=== PATIENT | female | born 1955 | race American Indian/Alaskan Native ===

== ENCOUNTER → 2016-05-03 | Outpatient (CLI) | payer MEDICARE, BC ==
[2016-05-03 15:22] LABS: INR 0.9 (<1.1); Partial Thromboplastin Time 22.6 sec (22.0-30.0); Prothrombin Time 9.7 sec (9.0-12.0)
== END | disposition home or self-care (01) ==
LOC: LABWHC1 14:33
PROVIDERS: ATTEND Physical Medicine & Rehabilitation
DX: M54.5 Low back pain (principal); E66.9 Obesity, unspecified; M43.16 Spondylolisthesis, lumbar region; M70.60 Trochanteric bursitis, unspecified hip; M47.817 Spondylosis without myelopathy or radiculopathy, lumbosacral region; M51.17 Intervertebral disc disorders with radiculopathy, lumbosacral region; M41.86 Other forms of scoliosis, lumbar region; M17.11 Unilateral primary osteoarthritis, right knee; M48.10 Ankylosing hyperostosis [Forestier], site unspecified; M54.16 Radiculopathy, lumbar region; M54.30 Sciatica, unspecified side
CPT/HCPCS: 36415; 85610; 85730

== ENCOUNTER 2016-06-04 13:40 | Emergency (ER) | payer MEDICARE, BC ==
[2016-06-04 13:58] VITALS: RESP 18
[2016-06-04] MEDS ORDERED: HYDROmorphone 1 MG/ML 1 ML SYRINGE IM STA (14:24)
[2016-06-04] MEDS ORDERED: cloNIDine HCL 0.2 MG TAB PO STA (14:27)
--- NOTE | 2016-06-04 14:32 | ED ---
General Adult HPI - General Chief complaint: Headache Stated complaint: headache Time Seen by Provider: 06/04/16 14:11 Source: patient, RN notes reviewed, old records reviewed Mode of arrival: ambulatory Limitations: no limitations - History of Present Illness Initial comments: If complaint and history of present illness a 61-year-old female here with a complaint of sinus pressure frontal and maxillary sinus. She been on amoxicillin for 5 days without relief she's also using Flonase. No fever at this time. No nausea no vomiting. - Related Data Home Medications Medication Instructions Recorded Confirmed ARIPiprazole [Abilify] 5 mg PO DAILY 08/09/13 11/04/15 Cyanocobalamin [Vitamin B-12] 2,000 mcg PO DAILY@1200 08/09/13 11/04/15 Furosemide [Lasix] 20 mg PO DAILY PRN 08/09/13 11/04/15 Levothyroxine Sodium [Synthroid] 88 mcg PO DAILY 08/09/13 11/04/15 Multivitamins, Thera [Multivitamin] 1 tab PO DAILY 08/09/13 11/04/15 Warfarin [Coumadin] 7.5 mg PO HS 08/09/13 11/04/15 L.acidoph,Paracasei, B.lactis 1 cap PO DAILY 07/12/15 11/04/15 [Probiotic] Nitroglycerin Sl Tabs [Nitrostat] 0.4 mg SUBLINGUAL Q5M PRN 07/12/15 11/04/15 traMADol HCl [Ultram] 50 mg PO Q6H PRN 07/12/15 11/04/15 Cyclobenzaprine [Flexeril] 10 mg PO HS 11/04/15 11/04/15 Gabapentin [Gabapentin] 600 mg PO BID 11/04/15 11/04/15 Morphine Sulfate [Ms Contin] 60 mg PO ONCE 11/04/15 11/04/15 Vortioxetine Hydrobromide 10 mg PO DAILY 11/04/15 11/04/15 [Trintellix] Previous Rx's Medication Instructions Recorded Clindamycin [Cleocin] 450 mg PO Q8HR #90 capsule 11/04/15 traMADol HCl [Ultram] 50 mg PO Q4H PRN #20 tab 11/04/15 Amoxicillin/Potassium Clav 1 each PO Q12HR #20 tab 03/04/17 [Augmentin 875-125 Tablet] Allergies Allergy/AdvReac Type Severity Reaction Status Date / Time cefprozil [From Cefzil] Allergy Unknown Verified 06/04/16 13:54 codeine Allergy Unknown Verified 06/04/16 13:54 hydrocodone bitartrate Allergy Confusion Verified 06/04/16 13:54 [From Vicodin] Sulfa (Sulfonamide Allergy Rash/Hives Verified 06/04/16 13:54 Antibiotics) Review of Systems ROS Statement: Those systems with pertinent positive or pertinent negative responses have been documented in the HPI. Review of systems. Patient has no change in visual acuity she has frontal sinus and maxillary sinus pressure and pain. Slight runny nose. She is using Flonase. She feels it radiating into the back of her throat. No sore throat. No stiff neck. No chest pain shortness breath GI/ problems. All systems were reviewed Past medical problems include angina, TIA, DVT, fibromyalgia, GERD, previous GI bleed. History of memory impairment, previous HI, OA, pneumonia, PE, sleep apnea with CPAP. Hypothyroidism. Surgeries include bariatric surgery hernia repair, hysterectomy, rotator cuff repair. And tubal ligation. Family history one sister ovarian cancer. Another sister had multiple ovarian cysts. Other sister had rheumatoid arthritis. She's nonsmoker nondrinker. ROS Other: All systems not noted in ROS Statement are negative. Past Medical History Past Medical History: Chest Pain / Angina, CVA/TIA, Deep Vein Thrombosis (DVT), Fibromyalgia, GERD/Reflux, GI Bleed, Memory Impairment, Myocardial Infarction ( [place]), Osteoarthritis (OA), Pneumonia, Pulmonary Embolus (PE), Skin Disorder, Sleep Apnea/CPAP/BIPAP, Thyroid Disorder Additional Past Medical History / Comment(s): Stroke, TIA, and Hypothyroid. CHRONIC YEAST IN skin folds. Leakage of urine. Poor nutrition, pt states was told she had an HI based on an old EKG ( never had an heartcath), frequent problems w/vomiting, states doens't have hypertension. Has been getting iron infusions for anemia in Procedures this week. neuorpathy, back pain, ANGINA, BLEEDING ULCERS, PLEURISY, OSTEROPEROSIS, MYFACIAL PAIN SYNDROME, SLEEP APNEA ( DOES NOT USE CPAP). Last Myocardial Infarction Date:: 2002 History of Any Multi-Drug Resistant Organisms: None Reported Past Surgical History: Bariatric Surgery, Hernia Repair, Hysterectomy, Orthopedic Surgery, Tubal Ligation Additional Past Surgical History / Comment(s): right rotator cuff repair AND REVISION, VENTRAL HERNIA REPAIR, HIATAL HERNIA REPAIR, LT KNEE ARTHROSCOPY, RECTOCELE, PERINEALPLASTY, GASTRIC BYPASS, Past Anesthesia/Blood Transfusion Reactions: Motion Sickness Past Psychological History: Anxiety, Depression Smoking Status: Never smoker Past Alcohol Use History: None Reported Past Drug Use History: None Reported - Past Family History Sister(s) Family Medical History: Cancer General Exam - General Exam Comments Initial Comments: General: The patient is awake and alert, complaining of moderate to severe discomfort to her frontal and maxillary sinuses. The patient's been on amoxicillin for almost a week without relief. Vital signs show temp is 97.9 pulse 84 respiratory rate 18 pulse ox 96% room air blood pressure 159/102. The patient is in pain. She will receive a pain shot and Catapres by mouth. She will also be referred back to her family physician in the next 1-2 weeks. Eye: Pupils are equal, round and reactive to light, extra-ocular movements are intact ; there is normal conjunctiva bilaterally. No signs of icterus. Ears, nose, mouth and throat: There are moist mucous membranes and no oral lesions. Patient has discomfort to the frontal and maxillary sinuses. No fever, no chills Neck: The neck is supple, there is no tenderness . Cardiovascular: There is a regular rate and rhythm. No murmur, rub or gallop is appreciated. Respiratory: Lungs are clear to auscultation, respirations are non-labored, breath sounds are equal. No wheezes, stridor, rales, or rhonchi. Gastrointestinal: No complaint nausea vomiting or diarrhea. Back: Chronic back pain from fibromyalgia. Musculoskeletal: No complaint of numbness or tingling. Neurological: No complaint of any balance problems. No focal or lateralizing findings. Skin: Skin is warm and dry and no rashes or lesions are noted. Limitations: no limitations Course Vital Signs 06/04/16 06/04/16 13:54 14:04 Temperature 97.9 F Pulse Rate 93 84 Respiratory 18 Rate Blood Pressure 170/97 159/102 O2 Sat by Pulse 95 96 Oximetry Medical Decision Making - Medical Decision Making Medical decision-making. The patient's blood pressure is elevated she'll receive Catapres in emergency room and referred back to her family physician this week. Her amoxicillin be switched to Augmentin to be taken as directed. She is to continue Motrin and tramadol. She does not want any other narcotics. While in emergency room the patient received a shot of Dilaudid and her friend is driving her home. She was advised to continue using her nasal spray and to start Augmentin. Disposition Clinical Impression: Sinusitis chronic, frontal, Maxillary sinusitis, acute Disposition: HOME SELF-CARE Condition: Stable Instructions: Sinusitis (ED) Additional Instructions: Take medications as directed, use Augmentin instead of amoxicillin. Continue with the Flonase nasal spray. By [id number] Claritin to be taken as directed. Continue with here child on Motrin. Follow-up with family physician Prescriptions: Amoxicillin/Potassium Clav [Augmentin 875-125 Tablet] 1 each PO Q12HR #20 tab Time of Disposition: 14:32
[2016-06-04 14:43] VITALS: BP 143/97; PULSE 85; TEMP 97.4
== END 2016-06-04 15:01 | disposition home or self-care (01) ==
LOC: EC 13:40
DX: J01.10 Acute frontal sinusitis, unspecified (principal); J01.00 Acute maxillary sinusitis, unspecified; M79.7 Fibromyalgia; R03.0 Elevated blood-pressure reading, without diagnosis of hypertension; R41.3 Other amnesia; M19.90 Unspecified osteoarthritis, unspecified site; E03.9 Hypothyroidism, unspecified; M81.0 Age-related osteoporosis without current pathological fracture; F41.9 Anxiety disorder, unspecified; F32.9 Major depressive disorder, single episode, unspecified; I25.2 Old myocardial infarction; Z86.73 Personal history of transient ischemic attack (TIA), and cerebral infarction without residual deficits; Z79.899 Other long term (current) drug therapy; Z79.01 Long term (current) use of anticoagulants; Z79.891 Long term (current) use of opiate analgesic; Z88.1 Allergy status to other antibiotic agents; Z88.5 Allergy status to narcotic agent; Z88.2 Allergy status to sulfonamides
CPT/HCPCS: 99283 ×2; 96372 ×2; J1170

== ENCOUNTER 2016-10-05 16:40 | Emergency (ER) | payer MEDICARE, BC ==
--- NOTE | 2016-10-05 18:23 | ED ---
Back Pain HPI - General Chief Complaint: Back Pain/Injury Stated Complaint: Back Pain Time Seen by Provider: 10/05/16 18:10 Source: patient, RN notes reviewed Limitations: no limitations - History of Present Illness Initial Comments: 61-year-old female presents to the emergency Department chief complaint of back pain. Patient states that she fell on Monday. and hit her back on a cart. Patient states since she's has always had difficulty with bladder function when she stands up sometimes she will lose back. Patient states she's having harder strain to have a bowel movement. Patient states she did not feels if she has as much force. Patient states she's had a bowel accident as well as urinates every time she stands up. Patient states she suffers from chronic pain she chronically has herniated disks however this is different than her normal pain. Patient states she has numbness and tingling in her right foot which is normal for her. Patient states is new pain radiates down left leg which she has never had before. Patient states she called her pain management doctor and she was referred here.Patient denies any recent fever, chills, shortness of breath, chest pain, abdominal pain, nausea vomiting, numbness or tingling, dysuria or hematuria, constipation or diarrhea, headaches or visual changes, or any other current symptoms. - Related Data Home Medications Medication Instructions Recorded Confirmed ARIPiprazole [Abilify] 5 mg PO HS 08/09/13 10/05/16 Furosemide [Lasix] 20 mg PO DAILY PRN 08/09/13 10/05/16 Levothyroxine Sodium [Synthroid] 88 mcg PO DAILY 08/09/13 10/05/16 Multivitamins, Thera [Multivitamin 1 tab PO DAILY 08/09/13 10/05/16 (formulary)] Warfarin [Coumadin] 7.5 mg PO Q48H 08/09/13 10/05/16 L.acidoph,Paracasei, B.lactis 1 cap PO DAILY 07/12/15 10/05/16 [Probiotic] Cyclobenzaprine [Flexeril] 10 mg PO HS 11/04/15 10/05/16 Gabapentin [Gabapentin] 600 mg PO TID 11/04/15 10/05/16 Vortioxetine Hydrobromide 10 mg PO DAILY 11/04/15 10/05/16 [Trintellix] Levocetirizine Dihydrochloride 5 mg PO DAILY 10/05/16 10/05/16 [Xyzal] rOPINIRole HCL [Requip] 1 mg PO HS 10/05/16 10/05/16 traMADol HCl [Ultram] 100 mg PO Q4H PRN 10/05/16 10/05/16 Previous Rx's Medication Instructions Recorded predniSONE 50 mg PO DAILY #5 tab 10/05/16 Allergies Allergy/AdvReac Type Severity Reaction Status Date / Time cefprozil [From Cefzil] Allergy Unknown Verified 10/05/16 17:59 codeine Allergy Unknown Verified 10/05/16 17:59 hydrocodone bitartrate Allergy Confusion Verified 10/05/16 17:59 [From Vicodin] Sulfa (Sulfonamide Allergy Rash/Hives Verified 10/05/16 17:59 Antibiotics) Review of Systems ROS Statement: Those systems with pertinent positive or pertinent negative responses have been documented in the HPI. ROS Other: All systems not noted in ROS Statement are negative. Past Medical History Past Medical History: Chest Pain / Angina, CVA/TIA, Deep Vein Thrombosis (DVT), Fibromyalgia, GERD/Reflux, GI Bleed, Memory Impairment, Myocardial Infarction ( [place]), Osteoarthritis (OA), Pneumonia, Pulmonary Embolus (PE), Skin Disorder, Sleep Apnea/CPAP/BIPAP, Thyroid Disorder Additional Past Medical History / Comment(s): Stroke, TIA, and Hypothyroid. CHRONIC YEAST IN skin folds. Leakage of urine. Poor nutrition, pt states was told she had an [place] based on an old EKG ( never had an heartcath), frequent problems w/vomiting, states doens't have hypertension. Has been getting iron infusions for anemia in Procedures this week. neuorpathy, back pain, ANGINA, BLEEDING ULCERS, PLEURISY, OSTEROPEROSIS, MYFACIAL PAIN SYNDROME, SLEEP APNEA ( DOES NOT USE CPAP). Last Myocardial Infarction Date:: 2002 History of Any Multi-Drug Resistant Organisms: None Reported Past Surgical History: Bariatric Surgery, Hernia Repair, Hysterectomy, Orthopedic Surgery, Tubal Ligation Additional Past Surgical History / Comment(s): right rotator cuff repair AND REVISION, VENTRAL HERNIA REPAIR, HIATAL HERNIA REPAIR, LT KNEE ARTHROSCOPY, RECTOCELE, PERINEALPLASTY, GASTRIC BYPASS, Past Anesthesia/Blood Transfusion Reactions: Motion Sickness Past Psychological History: Anxiety, Depression Smoking Status: Never smoker Past Alcohol Use History: None Reported Past Drug Use History: None Reported - Past Family History Sister(s) Family Medical History: Cancer General Exam Limitations: no limitations General appearance: alert, in no apparent distress Neck exam: Present: normal inspection. Absent: tenderness, meningismus, lymphadenopathy Respiratory exam: Present: normal lung sounds bilaterally Cardiovascular Exam: Present: regular rate, normal rhythm, normal heart sounds. Absent: systolic murmur, diastolic murmur, rubs, gallop, clicks GI/Abdominal exam: Present: soft, normal bowel sounds. Absent: distended, tenderness, guarding, rebound, rigid Rectal exam: Present: normal inspection, decreased rectal tone Back exam: Present: normal inspection. Absent: full ROM (Limited due to pain) Neurological exam: Present: alert, oriented X3 Psychiatric exam: Present: normal affect, normal mood Skin exam: Present: warm, dry, intact, normal color. Absent: rash Course Vital Signs 10/05/16 16:42 Temperature 97.5 F L Pulse Rate 90 Respiratory 20 Rate Blood Pressure 109/65 O2 Sat by Pulse 98 Oximetry Medical Decision Making - Medical Decision Making 61-year-old female presents for back pain after a fall on Monday. At this time CAT scan is reviewed that does show the L4-L5 which is chronic for the patient. There is no acute fracture. Patient does have decreased rectal tone on exam however this may be chronic for the patient. She normally doesn't have bladder function issues. She states she is more difficult time pushing to actually go to the bathroom since the injury which is most likely related to the pain. This time CAT scan is not showing any acute findings. At this time we did discuss follow-up with her neurologist typical we'll put her on steroids for home. The patient is in agreement with the plan. At this time she'll be discharged. - Radiology Data Radiology results: report reviewed, image reviewed Disposition Clinical Impression: Lumbar strain Disposition: HOME SELF-CARE Condition: Stable Instructions: Acute Low Back Pain (ED) Additional Instructions: Please use medication as discussed. Please follow up with family doctor if symptoms have not improved over the next two days. Please return to the emergency room if your symptoms increase or worsen or for any other concerns. Prescriptions: predniSONE 50 mg PO DAILY #5 tab Referrals: Jimy Trammell MD [Primary Care Provider] - 1-2 days Time of Disposition: 19:07
--- NOTE | 2016-10-05 18:56 | CT ---
EXAMINATION TYPE: CT lumbar spine wo con DATE OF EXAM: 10/05/2016 6:44 PM COMPARISON: NONE HISTORY: Fall 4 days ago. Low back and left leg pain with incontinence of urine. CT DLP: 1784.00 mGycm Automated exposure control for dose reduction was used. Unenhanced CT of the lumbar spine was performed. Bone and soft tissue window settings are submitted as well as coronal and sagittal reconstructions. Vertebra have normal alignment. There is mild narrowing of disc spaces throughout the lumbar spine. T here is no compression fracture. Facet joints are intact. There is osteopenia. There is no paraspinal mass. Sacroiliac joints appear intact. There is no evidence of spinal stenosis. There are larger hy pertrophic anterior spurs at the thoracolumbar junction. IMPRESSION: Mild spondylotic changes. No fracture. There is mild neural foraminal narrowing on the right side at L4-5 due to disc space narrowing and facet arthropathy.
[2016-10-05] MEDS ORDERED: HYDROmorphone 1 MG/ML 1 ML SYRINGE IM STA (19:04)
[2016-10-05] MEDS ORDERED: methylPREDNISolone SOD SUCCI 125 MG/2 ML VIAL IM STA (19:07)
[2016-10-05 19:15] VITALS: BP 142/66; PULSE 68; RESP 16; TEMP 98.2
== END 2016-10-05 19:35 | disposition home or self-care (01) ==
LOC: EC 16:40
DX: S39.012A Strain of muscle, fascia and tendon of lower back, initial encounter (principal); M79.7 Fibromyalgia; I25.2 Old myocardial infarction; M19.90 Unspecified osteoarthritis, unspecified site; F32.9 Major depressive disorder, single episode, unspecified; F41.9 Anxiety disorder, unspecified; E03.9 Hypothyroidism, unspecified; Z79.01 Long term (current) use of anticoagulants; Z79.899 Other long term (current) drug therapy; Z88.5 Allergy status to narcotic agent; Z88.2 Allergy status to sulfonamides; Z88.1 Allergy status to other antibiotic agents; Z86.73 Personal history of transient ischemic attack (TIA), and cerebral infarction without residual deficits; Z86.718 Personal history of other venous thrombosis and embolism; W01.198A Fall on same level from slipping, tripping and stumbling with subsequent striking against other object, initial encounter
CPT/HCPCS: 72131; 99283; 96372 ×2; J2930; J1170

== ENCOUNTER → 2017-01-22 | Outpatient (CLI) | payer MEDICARE, BC ==
[2017-01-22 10:00] LABS: INR 0.9 (<1.2); Prothrombin Time 9.5 sec (9.0-12.0)
== END | disposition home or self-care (01) ==
LOC: LABMAIN 09:25
PROVIDERS: ATTEND Physical Medicine & Rehabilitation
DX: E66.9 Obesity, unspecified (principal); M43.16 Spondylolisthesis, lumbar region; M70.60 Trochanteric bursitis, unspecified hip; M47.27 Other spondylosis with radiculopathy, lumbosacral region; M51.17 Intervertebral disc disorders with radiculopathy, lumbosacral region; M41.86 Other forms of scoliosis, lumbar region; M17.11 Unilateral primary osteoarthritis, right knee; Z79.01 Long term (current) use of anticoagulants
CPT/HCPCS: 36415; 85610; 85730

== ENCOUNTER 2017-04-02 11:14 | Emergency (ER) | payer MEDICARE, BC ==
[2017-04-02 11:40] VITALS: RESP 18
[2017-04-02] MEDS ORDERED: HYDROcodone/APAP 5-325MG 1 EACH TAB PO STA (12:39)
--- NOTE | 2017-04-02 12:41 | ED ---
General Adult HPI - General Chief complaint: Extremity Injury, Lower Stated complaint: leg and feet pain Time Seen by Provider: 04/02/17 12:20 Source: patient Mode of arrival: wheelchair Limitations: no limitations - History of Present Illness Initial comments: Is a 62-year-old female to history of fibromyalgia and chronic lower extremity pain who presents emergency department for worsening lower extremity pain and the patient states that she is on Cymbalta, gabapentin, and another antidepressant. She is to be on tramadol for her pain however they weaned her off of this because there concern for serotonin syndrome. The patient has been taking Tylenol however has had no relief. She went and saw her primary doctor a few days ago who did not recommend starting any other medications however she came in today because she felt it was unbearable. She states that the pain is similar in quality to her previous pain however just more intense. She states that nothing is different about it. She does denies any weakness, tingling, or numbness in the extremity. She does have history DVT however is on Zarrella toe and has been compliant. She denies any chest pain or shortness of breath. No other complaints. - Related Data Home Medications Medication Instructions Recorded Confirmed ARIPiprazole [Abilify] 5 mg PO HS 08/09/13 10/05/16 Furosemide [Lasix] 20 mg PO DAILY PRN 08/09/13 10/05/16 Levothyroxine Sodium [Synthroid] 88 mcg PO DAILY 08/09/13 10/05/16 Multivitamins, Thera [Multivitamin 1 tab PO DAILY 08/09/13 10/05/16 (formulary)] Warfarin [Coumadin] 7.5 mg PO Q48H 08/09/13 10/05/16 L.acidoph,Paracasei, B.lactis 1 cap PO DAILY 07/12/15 10/05/16 [Probiotic] Cyclobenzaprine [Flexeril] 10 mg PO HS 11/04/15 10/05/16 Gabapentin [Gabapentin] 600 mg PO TID 11/04/15 10/05/16 Vortioxetine Hydrobromide 10 mg PO DAILY 11/04/15 10/05/16 [Trintellix] Levocetirizine Dihydrochloride 5 mg PO DAILY 10/05/16 10/05/16 [Xyzal] rOPINIRole HCL [Requip] 1 mg PO HS 10/05/16 10/05/16 traMADol HCl [Ultram] 100 mg PO Q4H PRN 10/05/16 10/05/16 Previous Rx's Medication Instructions Recorded predniSONE 50 mg PO DAILY #5 tab 10/05/16 HYDROcodone/APAP 5-325MG [Mondovi 1 tab PO Q6HR PRN #8 tab 04/02/17 5-325] Allergies Allergy/AdvReac Type Severity Reaction Status Date / Time cefprozil [From Cefzil] Allergy Unknown Verified 04/02/17 11:40 codeine Allergy Unknown Verified 04/02/17 11:40 hydrocodone bitartrate Allergy Confusion Verified 04/02/17 11:40 [From Vicodin] Sulfa (Sulfonamide Allergy Rash/Hives Verified 04/02/17 11:40 Antibiotics) metaxalone [From Skelaxin] AdvReac Nausea & Verified 04/02/17 11:40 Vomiting Review of Systems ROS Statement: Those systems with pertinent positive or pertinent negative responses have been documented in the HPI. ROS Other: All systems not noted in ROS Statement are negative. Past Medical History Past Medical History: Chest Pain / Angina, CVA/TIA, Deep Vein Thrombosis (DVT), Fibromyalgia, GERD/Reflux, GI Bleed, Memory Impairment, Myocardial Infarction ( [place]), Osteoarthritis (OA), Pneumonia, Pulmonary Embolus (PE), Skin Disorder, Sleep Apnea/CPAP/BIPAP, Thyroid Disorder Additional Past Medical History / Comment(s): Stroke, TIA, and Hypothyroid. CHRONIC YEAST IN skin folds. Leakage of urine. Poor nutrition, pt states was told she had an [place] based on an old EKG ( never had an heartcath), frequent problems w/vomiting, states doens't have hypertension. Has been getting iron infusions for anemia in Procedures this week. neuorpathy, back pain, ANGINA, BLEEDING ULCERS, PLEURISY, OSTEROPEROSIS, MYFACIAL PAIN SYNDROME, SLEEP APNEA ( DOES NOT USE CPAP). scoliosis Last Myocardial Infarction Date:: 2002 History of Any Multi-Drug Resistant Organisms: None Reported Past Surgical History: Bariatric Surgery, Hernia Repair, Hysterectomy, Orthopedic Surgery, Tubal Ligation Additional Past Surgical History / Comment(s): right rotator cuff repair AND REVISION, VENTRAL HERNIA REPAIR, HIATAL HERNIA REPAIR, LT KNEE ARTHROSCOPY, RECTOCELE, PERINEALPLASTY, GASTRIC BYPASS, Past Anesthesia/Blood Transfusion Reactions: Motion Sickness Past Psychological History: Anxiety, Depression Smoking Status: Never smoker Past Alcohol Use History: None Reported Past Drug Use History: None Reported - Past Family History Sister(s) Family Medical History: Cancer General Exam - General Exam Comments Initial Comments: Constitutional: Awake alert Appears comfortable Head: Normocephalic atraumatic Eyes: no conjunctival injection No scleral icterus EOMI Neck: No JVD Supple Heart: Regular rate rhythm normal S1-S2 no murmurs Lungs: Clear to auscultation bilaterally No wheezing No rales Abdomen: Soft nondistended nontender Extremities: Non edematous DP pulses intact Radial pulses intact Neuro: A&Ox3, 5 out of 5 strength with dorsiflexion and plantar flexion of bilateral lower [place], 2 out of 4 patellar reflexes, sensation intact to light touch in bilateral lower [place] No focal neurologic deficits Psych: Appropriate mood and affect Limitations: no limitations Course Vital Signs 04/02/17 04/02/17 11:34 12:54 Temperature 98.2 F 98.7 F Pulse Rate 79 82 Respiratory 18 18 Rate Blood Pressure 129/87 132/84 O2 Sat by Pulse 98 98 Oximetry Medical Decision Making - Medical Decision Making Is a 62-year-old female came in for chronic lower extremity pain. The patient stated that it was unchanged from previous however just more intense. She had no focal neurologic findings or physical exam findings. She states is consistent with her fibromyalgia pain and she came in just for pain relief. The patient was given a Mondovi and given 8 tabs to get her through until she can see her doctor. The patient was content with this all can questions were answered. Disposition Clinical Impression: Chronic pain Disposition: HOME SELF-CARE Condition: Stable Instructions: Chronic Pain (ED) Prescriptions: HYDROcodone/APAP 5-325MG [Mondovi 5-325] 1 tab PO Q6HR PRN #8 tab PRN Reason: Pain Referrals: Jimy Trammell MD [Primary Care Provider] - 1-2 days
[2017-04-02 12:55] VITALS: BP 132/84; PULSE 82; TEMP 98.7
== END 2017-04-02 12:54 | disposition home or self-care (01) ==
LOC: EC 11:14
DX: G89.29 Other chronic pain (principal); M79.662 Pain in left lower leg; M79.7 Fibromyalgia; I25.2 Old myocardial infarction; E03.9 Hypothyroidism, unspecified; F41.9 Anxiety disorder, unspecified; F32.9 Major depressive disorder, single episode, unspecified; Z86.718 Personal history of other venous thrombosis and embolism; Z86.711 Personal history of pulmonary embolism; Z86.73 Personal history of transient ischemic attack (TIA), and cerebral infarction without residual deficits; Z98.890 Other specified postprocedural states; Z79.01 Long term (current) use of anticoagulants; Z79.899 Other long term (current) drug therapy; Z88.1 Allergy status to other antibiotic agents; Z88.2 Allergy status to sulfonamides; Z88.5 Allergy status to narcotic agent; Z88.8 Allergy status to other drugs, medicaments and biological substances
CPT/HCPCS: 99283

== ENCOUNTER → 2017-04-20 | Outpatient (CLI) | payer MEDICARE, BC ==
[2017-04-20 17:49] LABS: Basophils % (A) 0 %; Eosinophils % (A) 1 %; HCT 40.8 % (34.0-46.0); HGB 12.3 gm/dL (11.4-16.0); Hypochromasia Slight; Lymphocytes # (A) 1.6 k/uL (1.0-4.8); Lymphocytes % (A) 18 %; MCH 26.8 pg (25.0-35.0); MCHC 30.1 g/dL (31.0-37.0); Mean Platelet Volume 7.1; Monocytes # (A) 0.6 k/uL (0-1.0); Monocytes % (A) 7 %; Neutrophils # (A) 6.5 k/uL (1.3-7.7); Neutrophils % (A) 72 %; Platelet Count 514 k/uL (150-450); RBC 4.59 m/uL (3.80-5.40); RDW 15.4 % (11.5-15.5); WBC 8.9 k/uL (3.8-10.6)
[2017-04-20 18:08] LABS: C Reactive Protein 8.9 mg/L (<10.0); Uric Acid 4.9 mg/dL (3.7-7.4)
[2017-04-20 18:51] LABS: Erythrocyte Sedimentation Rate 14 mm/hr (0-20)
== END | disposition home or self-care (01) ==
LOC: LABWHC1 16:49
PROVIDERS: ATTEND Physical Medicine & Rehabilitation
DX: M17.11 Unilateral primary osteoarthritis, right knee (principal); M54.5 Low back pain; E66.9 Obesity, unspecified; M43.16 Spondylolisthesis, lumbar region; M70.60 Trochanteric bursitis, unspecified hip; M47.817 Spondylosis without myelopathy or radiculopathy, lumbosacral region; M51.17 Intervertebral disc disorders with radiculopathy, lumbosacral region; M41.86 Other forms of scoliosis, lumbar region
CPT/HCPCS: 36415; 84550; 85025; 85652; 86140

== ENCOUNTER 2017-08-09 17:14 | Emergency (ER) | payer MEDICARE, BC ==
[2017-08-09 17:22] VITALS: BP 170/89; PULSE 71; RESP 18; TEMP 98.8
[2017-08-09] MEDS ORDERED: ORPHENADRINE 30 MG/ML 2 ML VIAL IM STA (18:25)
[2017-08-09] MEDS ORDERED: KETOROLAC 30 MG/ML 1 ML VIAL IM STA (18:25)
--- NOTE | 2017-08-09 18:49 | ED ---
Back Pain HPI - General Chief Complaint: Back Pain/Injury Stated Complaint: Back Pain Time Seen by Provider: 08/09/17 18:07 Source: patient, RN notes reviewed Limitations: no limitations - History of Present Illness Initial Comments: This is a 62-year-old female who presents to the emergency department chief complaint of low back pain. Patient states that she has chronic low back pain. She states that she has several herniated disks in her lumbar spine. She states that she saw Dr. Russo this morning and received a medial branch block. She states that since that time her pain has worsened. She describes the pain as mostly right-sided with sharp shooting pain down the right lower extremity. She states that pain is improved when she performs forward bending. Denies saddle paresthesias or loss of bladder or bowel function. Denies falls , injuries or trauma. Denies recent fevers or chills, chest pain or shortness of breath, abdominal pain, nausea or vomiting. - Related Data Home Medications Medication Instructions Recorded Confirmed Furosemide [Lasix] 20 mg PO DAILY PRN 08/09/13 10/05/16 Levothyroxine Sodium [Synthroid] 88 mcg PO DAILY 08/09/13 10/05/16 Warfarin [Coumadin] 7.5 mg PO Q48H 08/09/13 10/05/16 Cyclobenzaprine [Flexeril] 10 mg PO HS 11/04/15 10/05/16 Gabapentin [Gabapentin] 600 mg PO TID 11/04/15 10/05/16 Vortioxetine Hydrobromide 10 mg PO DAILY 11/04/15 10/05/16 [Trintellix] rOPINIRole HCL [Requip] 1 mg PO HS 10/05/16 10/05/16 Butalb/Acetaminophen/Caffeine 1 - 2 cap PO TID PRN 08/09/17 08/09/17 [Fioricet 50-300-40 mg Capsule] Cetirizine HCl [Zyrtec] 10 mg PO DAILY PRN 08/09/17 08/09/17 Doxepin [SINEquan] 25 mg PO HS 08/09/17 08/09/17 HYDROcodone/APAP 5-325MG [[place] 1 tab PO TID PRN 08/09/17 08/09/17 5-325] Allergies Allergy/AdvReac Type Severity Reaction Status Date / Time cefprozil [From Cefzil] Allergy Unknown Verified 08/09/17 18:36 codeine Allergy Unknown Verified 08/09/17 18:36 hydrocodone bitartrate Allergy Confusion Verified 08/09/17 18:36 [From Vicodin] Sulfa (Sulfonamide Allergy Rash/Hives Verified 08/09/17 18:36 Antibiotics) metaxalone [From Skelaxin] AdvReac Nausea & Verified 08/09/17 18:36 Vomiting Review of Systems ROS Statement: Those systems with pertinent positive or pertinent negative responses have been documented in the HPI. ROS Other: All systems not noted in ROS Statement are negative. Past Medical History Past Medical History: Chest Pain / Angina, CVA/TIA, Deep Vein Thrombosis (DVT), Fibromyalgia, GERD/Reflux, GI Bleed, Memory Impairment, Myocardial Infarction ( [place]), Osteoarthritis (OA), Pneumonia, Pulmonary Embolus (PE), Skin Disorder, Sleep Apnea/CPAP/BIPAP, Thyroid Disorder Additional Past Medical History / Comment(s): Stroke, TIA, and Hypothyroid. CHRONIC YEAST IN skin folds. Leakage of urine. Poor nutrition, pt states was told she had an [place] based on an old EKG ( never had an heartcath), frequent problems w/vomiting, states doens't have hypertension. Has been getting iron infusions for anemia in Procedures this week. neuorpathy, back pain, ANGINA, BLEEDING ULCERS, PLEURISY, OSTEROPEROSIS, MYFACIAL PAIN SYNDROME, SLEEP APNEA ( DOES NOT USE CPAP). scoliosis Last Myocardial Infarction Date:: 2002 History of Any Multi-Drug Resistant Organisms: None Reported Past Surgical History: Bariatric Surgery, Hernia Repair, Hysterectomy, Orthopedic Surgery, Tubal Ligation Additional Past Surgical History / Comment(s): right rotator cuff repair AND REVISION, VENTRAL HERNIA REPAIR, HIATAL HERNIA REPAIR, LT KNEE ARTHROSCOPY, RECTOCELE, PERINEALPLASTY, GASTRIC BYPASS, Past Anesthesia/Blood Transfusion Reactions: Motion Sickness Past Psychological History: Anxiety, Depression Smoking Status: Never smoker Past Alcohol Use History: None Reported Past Drug Use History: None Reported - Past Family History Sister(s) Family Medical History: Cancer General Exam - General Exam Comments Initial Comments: General: Awake and alert, well-developed; in no apparent distress. Patient appeared well until I began talking to her and then she became tearful. Patient 's adjunct sociology professor is at bedside. HEENT: Head atraumatic, normocephalic. Pupils are equal, round and reactive to light. Extraocular movements intact. Oropharynx moist without erythema or exudate. Neck: Supple. Normal ROM. Cardiovascular: Regular rate and rhythm. No murmurs, rubs or gallops. Chest symmetrical. Respiratory: Lungs clear to auscultation bilaterally. No wheezes, rales or rhonchi. Normal respiratory effort with no use of accessory muscles. Musculoskeletal: Normal ROM, no tenderness bilateral upper and lower extremities. Ambulating with a cane. Abnormal curvature noted to the thoracic spine. Tenderness on palpation of lumbar vertebra. Sensation is intact. Pedal pulses are 2+ equal and palpable bilaterally. Skin: [employer], warm and dry without rashes or lesions. Neurological: Alert and oriented x3. CN II-XII grossly intact. Speech is fluent and answers are appropriate. No focal neuro deficits. Psychiatric: Normal mood and affect. No overt signs of depression or anxiety noted. Limitations: no limitations Course Vital Signs 08/09/17 17:19 Temperature 98.8 F Pulse Rate 71 Respiratory 18 Rate Blood Pressure 170/89 O2 Sat by Pulse 97 Oximetry Medical Decision Making - Medical Decision Making This is a 62-year-old female who presents to the emergency department with chief complaint of low back pain. Patient states she has chronic back pain due to disc herniations. She was seen by Dr. Russo this morning and received a medial branch block, however patient admits that this did not improve her pain and actually seemed to worsen it. Denies saddle paresthesias or loss of bladder or bowel function. Denies recent falls, injury or trauma. Case was discussed with attending physician, Dr. Wylie. I offered patient an IM shot of morphine but she refuses. She was agreeable to Toradol and Norflex. Patient takes [place] and naproxen at home as well as a muscle relaxer. Vital signs are stable and she is in no acute distress. She will be discharged home at this time. Recommended following up with Dr. Rsuso in the morning. She is in agreement and voices understanding. All questions were answered. Disposition Clinical Impression: Lumbar radiculopathy, Chronic back pain Disposition: HOME SELF-CARE Condition: Good Instructions: Lumbar Radiculopathy (ED), Chronic Back Pain (ED) Additional Instructions: Please follow-up with Dr. Russo in the morning. Please follow up with primary care provider within 1-2 days. Return to emergency department if symptoms should worsen or any concerns arise. Is patient prescribed a controlled substance at d/c from ED?: No Referrals: Jimy Trammell MD [Primary Care Provider] - 1-2 days Time of Disposition: 18:53
== END 2017-08-09 19:02 | disposition home or self-care (01) ==
LOC: EC 17:14
DX: G89.29 Other chronic pain (principal); M54.5 Low back pain; M51.16 Intervertebral disc disorders with radiculopathy, lumbar region; E03.9 Hypothyroidism, unspecified; M79.7 Fibromyalgia; F32.9 Major depressive disorder, single episode, unspecified; F41.9 Anxiety disorder, unspecified; I25.2 Old myocardial infarction; Z79.01 Long term (current) use of anticoagulants; Z79.899 Other long term (current) drug therapy; Z88.1 Allergy status to other antibiotic agents; Z88.2 Allergy status to sulfonamides; Z88.5 Allergy status to narcotic agent; Z88.8 Allergy status to other drugs, medicaments and biological substances; Z86.711 Personal history of pulmonary embolism; Z86.718 Personal history of other venous thrombosis and embolism; Z86.73 Personal history of transient ischemic attack (TIA), and cerebral infarction without residual deficits
CPT/HCPCS: 99283; 96372 ×2; J2360; J1885

== ENCOUNTER → 2017-08-21 | Outpatient (CLI) | payer MEDICARE, BC ==
--- NOTE | 2017-08-21 15:42 | MR ---
EXAMINATION TYPE: MR knee RT wo con DATE OF EXAM: 08/21/2017 COMPARISON: NONE HISTORY: Pain in right knee TECHNIQUE: Multiplanar, multisequence imaging of the right knee is performed without IV contrast. Exa m is somewhat limited due to patient body habitus. FINDINGS: MEDIAL MENISCUS: There appears to be some increased signal within the anterior and posterior horns of the medial meniscus compatible some internal derangement or degenerative change. Communication with an articular surface is not identified. LATERAL MENISCUS: Lateral meniscus appears small. The anterior horn is partially related preserved. T here is increased signal in the expected region of the posterior horn lateral meniscus. CRUCIATE LIGAMENTS: Posterior cruciate ligament is intact. The anterior cruciate ligament has some in termediate signal within the distal portion above the tibial plateau may has some strain. Correlate w ith the patient's symptoms. COLLATERAL LIGAMENTS: The medial collateral ligament and lateral collateral ligament complex are inta ct and unremarkable. EXTENSOR MECHANISM: Visualized quadriceps and patellar tendons are intact. EFFUSION: No significant suprapatellar joint effusion. POPLITEAL CYST: No popliteal/khan cyst. TRICOMPARTMENT SPACES: There is narrowing of the medial compartment joint space. Medial and lateral f emoral condylar spurring is present. Subchondral cyst appears to be present at the medial tibial plat eau along its posterior aspect. Lateral tibial plateau spurring is noted. CARTILAGE: There is mild thinning of the articular cartilage. There is greater articular cartilage th inning along the posterior patella. BONE MARROW SIGNAL: Subchondral cyst the posterior medial tibial plateau is present. Some mild edema along the medial posterior patella and femoral condyle may be present. Correlate for contusion. OTHER: No additional significant abnormality is appreciated. IMPRESSION: Mild to moderate osteoarthritic degenerative change. 2. Possible strain of the distal anterior cruciate ligament. Correlate with patient's symptoms. Signi ficant effusion however is not identified. 3. Subchondral cyst posterior medial tibial plateau. 4. Loss of the lateral meniscus. Medial meniscus has degenerative changes.
== END | disposition home or self-care (01) ==
LOC: RADMRIMAIN 06:13
PROVIDERS: ATTEND Orthopaedic Surgery
DX: M17.11 Unilateral primary osteoarthritis, right knee (principal); M85.662 Other cyst of bone, left lower leg; M23.300 Other meniscus derangements, unspecified lateral meniscus, right knee; M23.303 Other meniscus derangements, unspecified medial meniscus, right knee

== ENCOUNTER → 2017-08-21 | Outpatient (CLI) | payer MEDICARE, BC ==
--- NOTE | 2017-08-21 13:01 | MR ---
EXAMINATION TYPE: MR knee LT wo con DATE OF EXAM: 08/21/2017 COMPARISON: NONE HISTORY: Pain in left knee TECHNIQUE: Multiplanar, multisequence imaging of the left knee is performed without IV contrast. FINDINGS: MEDIAL MENISCUS: There is increased signal within the posterior horn of the medial meniscus. This is an oblique angle may has some communication with the articular surface. Correlate for internal derang ement or oblique tear. Anterior horn of the medial meniscus has some mild increased signal. This coul d be related to some degenerative change or internal derangement. LATERAL MENISCUS: There is some minimal increased signal along the inferior aspects of the anterior a nd posterior horns of the lateral meniscus. Small tears may be present on previous could be some inte rnal derangement. Communication with the articular surface is not clearly identified. The meniscus is small. CRUCIATE LIGAMENTS: The anterior and posterior cruciate ligaments are intact and unremarkable. COLLATERAL LIGAMENTS: The medial collateral ligament and lateral collateral ligament complex are inta ct and unremarkable. EXTENSOR MECHANISM: Distal quadriceps tendon appears unremarkable. There is some mild increased signa l within the substance of the patellar tendon near its insertion on the tibia. Some mild strain be co nsidered. EFFUSION: Minimal effusion appears to be present. POPLITEAL CYST: No popliteal/khan cyst. TRICOMPARTMENT SPACES: There is narrowing of the medial lateral compartment joint spaces. There is na rrowing of the patellofemoral compartment joint space. CARTILAGE: There is thinning of the articular cartilage. There is some edema of the posterior patella . Some chondromalacia may be present. BONE MARROW SIGNAL: No focal abnormal marrow signal is appreciated. OTHER: Note is made of some superficial varicosities. Tibial plateau spurring is noted. Posterior pa tellar spurring is present. IMPRESSION: 1. Osteoarthritic degenerative change appears moderate bilaterally and moderate to severe at the samuels llofemoral joint space. 2. Minimal joint fluid. 3. There may be some mild strain of the patellar tendon insertion on the tibia. 4. Oblique tear or internal derangement posterior horn medial meniscus. 5. Internal derangement anterior horn medial meniscus. 6. Minimal signal abnormality along the inferior surface of the anterior and posterior horns of the l ateral meniscus.
== END | disposition home or self-care (01) ==
LOC: RADMRIMAIN 06:19
PROVIDERS: ATTEND Family Medicine
DX: S83.242A Other tear of medial meniscus, current injury, left knee, initial encounter (principal); M17.12 Unilateral primary osteoarthritis, left knee

== ENCOUNTER 2017-08-23 05:14 | Emergency (ER) | payer MEDICARE, BC ==
[2017-08-23] MEDS ORDERED: DIAZEPAM 5 MG/ML 2 ML INJ IVP STA (05:38)
[2017-08-23] MEDS ORDERED: MORPHINE SULFATE 4 MG/ML SYRINGE IM STA (05:38)
[2017-08-23] MEDS ORDERED: diphenhydrAMINE 50 MG CAP PO STA (05:38)
[2017-08-23] MEDS ORDERED: DIAZEPAM 5 MG TAB PO STA (05:41)
--- NOTE | 2017-08-23 05:41 | ED ---
General Adult HPI - General Chief complaint: Extremity Problem,Nontraumatic Stated complaint: Nerve pain Time Seen by Provider: 08/23/17 05:19 Source: patient, RN notes reviewed, old records reviewed Mode of arrival: wheelchair Limitations: no limitations - History of Present Illness Initial comments: This is a 62-year-old female the ER for evaluation of back pain, severe back pain rating on her right leg. Patient has no injury or trauma, patient did have recent evaluation by pain management, she has pain management follow-up. She states she may for ALLERGIC reaction to medications was unable to sleep last night secondary to pain. Patient coming the ER for evaluation continue worsening back pain. - Related Data Home Medications Medication Instructions Recorded Confirmed Furosemide [Lasix] 20 mg PO DAILY PRN 08/09/13 08/23/17 Levothyroxine Sodium [Synthroid] 88 mcg PO DAILY 08/09/13 08/23/17 Warfarin [Coumadin] 7.5 mg PO Q48H 08/09/13 08/23/17 Cyclobenzaprine [Flexeril] 5 - 10 mg PO HS 11/04/15 08/23/17 Gabapentin [Gabapentin] 600 mg PO TID 11/04/15 08/23/17 Vortioxetine Hydrobromide 10 mg PO DAILY 11/04/15 08/23/17 [Trintellix] rOPINIRole HCL [Requip] 1 mg PO BID 10/05/16 08/23/17 Butalb/Acetaminophen/Caffeine 1 - 2 cap PO TID PRN 08/09/17 08/23/17 [Fioricet 50-300-40 mg Capsule] Cetirizine HCl [Zyrtec] 10 mg PO DAILY PRN 08/09/17 08/23/17 Doxepin [SINEquan] 25 mg PO HS 08/09/17 08/23/17 HYDROcodone/APAP 5-325MG [[place] 1 tab PO TID PRN 08/09/17 08/23/17 5-325] Allergies Allergy/AdvReac Type Severity Reaction Status Date / Time cefprozil [From Cefzil] Allergy Unknown Verified 08/23/17 05:24 codeine Allergy Unknown Verified 08/23/17 05:24 hydrocodone bitartrate Allergy Confusion Verified 08/23/17 05:24 [From Vicodin] Sulfa (Sulfonamide Allergy Rash/Hives Verified 08/23/17 05:24 Antibiotics) metaxalone [From Skelaxin] AdvReac Nausea & Verified 08/23/17 05:24 Vomiting Review of Systems ROS Statement: Those systems with pertinent positive or pertinent negative responses have been documented in the HPI. ROS Other: All systems not noted in ROS Statement are negative. Past Medical History Past Medical History: Chest Pain / Angina, CVA/TIA, Deep Vein Thrombosis (DVT), Fibromyalgia, GERD/Reflux, GI Bleed, Memory Impairment, Myocardial Infarction ( [place]), Osteoarthritis (OA), Pneumonia, Pulmonary Embolus (PE), Skin Disorder, Sleep Apnea/CPAP/BIPAP, Thyroid Disorder Additional Past Medical History / Comment(s): Stroke, TIA, and Hypothyroid. CHRONIC YEAST IN skin folds. Leakage of urine. Poor nutrition, pt states was told she had an [place] based on an old EKG ( never had an heartcath), frequent problems w/vomiting, states doens't have hypertension. Has been getting iron infusions for anemia in Procedures this week. neuorpathy, back pain, ANGINA, BLEEDING ULCERS, PLEURISY, OSTEROPEROSIS, MYFACIAL PAIN SYNDROME, SLEEP APNEA ( DOES NOT USE CPAP). scoliosis Last Myocardial Infarction Date:: 2002 History of Any Multi-Drug Resistant Organisms: None Reported Past Surgical History: Bariatric Surgery, Hernia Repair, Hysterectomy, Orthopedic Surgery, Tubal Ligation Additional Past Surgical History / Comment(s): right rotator cuff repair AND REVISION, VENTRAL HERNIA REPAIR, HIATAL HERNIA REPAIR, LT KNEE ARTHROSCOPY, RECTOCELE, PERINEALPLASTY, GASTRIC BYPASS, Past Anesthesia/Blood Transfusion Reactions: Motion Sickness Past Psychological History: Anxiety, Depression Smoking Status: Never smoker Past Alcohol Use History: Rare Past Drug Use History: None Reported - Past Family History Sister(s) Family Medical History: Cancer General Exam Limitations: no limitations General appearance: alert, in no apparent distress Head exam: Present: atraumatic, normocephalic, normal inspection Eye exam: Present: normal appearance, PERRL, EOMI. Absent: scleral icterus, conjunctival injection, periorbital swelling ENT exam: Present: normal exam, mucous membranes moist Neck exam: Present: normal inspection. Absent: tenderness, meningismus, lymphadenopathy Respiratory exam: Present: normal lung sounds bilaterally. Absent: respiratory distress, wheezes, rales, rhonchi, stridor Cardiovascular Exam: Present: regular rate, normal rhythm, normal heart sounds. Absent: systolic murmur, diastolic murmur, rubs, gallop, clicks GI/Abdominal exam: Present: soft, normal bowel sounds. Absent: distended, tenderness, guarding, rebound, rigid Extremities exam: Present: normal inspection, full ROM, normal capillary refill. Absent: tenderness, pedal edema, joint swelling, calf tenderness Back exam: Present: normal inspection Neurological exam: Present: alert, oriented X3, CN II-XII intact Psychiatric exam: Present: normal affect, normal mood Skin exam: Present: warm, dry, intact, normal color. Absent: rash Course Vital Signs 08/23/17 05:19 Temperature 97.1 F L Pulse Rate 67 Respiratory 18 Rate Blood Pressure 88/56 O2 Sat by Pulse 99 Oximetry - Reevaluation(s) Reevaluation #1: 08/23/17 05:40 Pain relieved Medical Decision Making - Medical Decision Making 62 female the ER for evaluation regarding acute on chronic back pain, sciatica. Patient will continue follow-up today with pain management Disposition Clinical Impression: Lumbar radiculopathy, Chronic back pain Disposition: HOME SELF-CARE Condition: Fair Instructions: Chronic Back Pain (ED), Acute Low Back Pain (ED) Is patient prescribed a controlled substance at d/c from ED?: No Referrals: Jimy Trammell MD [Primary Care Provider] - 1-2 days
[2017-08-23] MEDS ORDERED: oxyCODONE-APAP 5-325MG 1 EACH TAB PO STA (05:42)
[2017-08-23 07:50] LABS: Appearance,Urine Cloudy (Clear); Bacteria,Urine Rare /hpf; Bilirubin,Urine 1+ (Negative); Blood,Urine Negative (Negative); Color,Urine Yellow; Glucose,Urine (UA) Negative (Negative); Hyaline Casts,Urine 94 /lpf (0-2); Ketones,Urine Trace (Negative); Leukocyte Esterase,Urine Large (Negative); Mucus,Urine Occasional /hpf; Nitrite,Urine Negative (Negative); PH, Urine 5.5 (5.0-8.0); Protein,Urine 1+ (Negative); RBC,Urine 4 /hpf (0-5); Specific Gravity,Urine 1.024 (1.001-1.035); Squamous Epithelial Cell,Urine 15 /hpf (0-4); WBC,Urine 11 /hpf (0-5)
--- NOTE | 2017-08-23 08:38 | ED ---
Medical Decision Making - Medical Decision Making The patient did have a pending UA which was performed at this time no definite evidence of infection. I did discuss the findings with the patient she will be discharged I did recommend that she increase her oral fluid intake. She will keep her follow-up appointment with Dr. Russo tomorrow. - Lab Data Lab Results 08/23/17 Range/Units 07:35 Urine Color Yellow Urine Appearance Cloudy H (Clear) Urine pH 5.5 (5.0-8.0) Ur Specific [place] 1.024 (1.001-1.035) Urine Protein 1+ H (Negative) Urine Glucose (UA) Negative (Negative) Urine Ketones Trace H (Negative) Urine Blood Negative (Negative) Urine Nitrite Negative (Negative) Urine Bilirubin 1+ H (Negative) Urine Urobilinogen 4.0 (<2.0) mg/dL Ur Leukocyte Esterase Large H (Negative) Urine RBC 4 (0-5) /hpf Urine WBC 11 H (0-5) /hpf Ur Squamous Epith Cells 15 H (0-4) /hpf Urine Bacteria Rare H (None) /hpf Hyaline Casts 94 H (0-2) /lpf Urine Mucus Occasional H (None) /hpf Disposition Clinical Impression: Lumbar radiculopathy, Chronic back pain Disposition: HOME SELF-CARE Condition: Fair Instructions: Acute Low Back Pain (ED), Chronic Back Pain (ED) Is patient prescribed a controlled substance at d/c from ED?: No Referrals: Jimy Trammell MD [Primary Care Provider] - 1-2 days
[2017-08-23 08:41] VITALS: BP 139/87; PULSE 81; RESP 16; TEMP 98
== END 2017-08-23 08:41 | disposition home or self-care (01) ==
LOC: EC 05:14
DX: M54.16 Radiculopathy, lumbar region (principal); M54.31 Sciatica, right side; E03.9 Hypothyroidism, unspecified; D64.9 Anemia, unspecified; M79.7 Fibromyalgia; G62.9 Polyneuropathy, unspecified; F32.9 Major depressive disorder, single episode, unspecified; F41.9 Anxiety disorder, unspecified; Z79.01 Long term (current) use of anticoagulants; Z79.899 Other long term (current) drug therapy; Z88.1 Allergy status to other antibiotic agents; Z88.2 Allergy status to sulfonamides; Z88.5 Allergy status to narcotic agent; Z88.8 Allergy status to other drugs, medicaments and biological substances; Z86.718 Personal history of other venous thrombosis and embolism; Z86.711 Personal history of pulmonary embolism; Z86.73 Personal history of transient ischemic attack (TIA), and cerebral infarction without residual deficits; Z53.8 Procedure and treatment not carried out for other reasons
CPT/HCPCS: 81001; 99284; 96372; J2270

== ENCOUNTER → 2017-09-08 | Outpatient (CLI) | payer MEDICARE, BC ==
--- NOTE | 2017-09-08 18:32 | US ---
EXAMINATION TYPE: US venous doppler duplex LE BI DATE OF EXAM: 09/08/2017 6:18 PM COMPARISON: US CLINICAL HISTORY: M79.669 Pain in Calf. Leg pain, prev DVT 2011, pt currently on blood thinners SIDE PERFORMED: Bilateral TECHNIQUE: The lower extremity deep venous system is examined utilizing real time linear array sonog trang with graded compression, doppler sonography and color-flow sonography. VESSELS IMAGED: External Iliac Vein (EIV) Common Femoral Vein Deep Femoral Vein Greater Saphenous Vein * Femoral Vein Popliteal Vein Small Saphenous Vein * Proximal Calf Veins (* superficial vessels) Limited exam, especially left leg/ pt morbidly obese with restless leg syndrome/ unable to obtain m ost color images on left leg due to pt moving too much Right Leg: Visualized portions appear negative for DVT Left Leg: Visualized portions appear negative for DVT IMPRESSION: No evidence of deep venous thrombosis in both legs.
== END | disposition home or self-care (01) ==
LOC: RADUSMAIN 17:52
PROVIDERS: ATTEND Family Medicine
DX: M79.661 Pain in right lower leg (principal); M79.662 Pain in left lower leg
CPT/HCPCS: 93970

== ENCOUNTER → 2017-10-08 | Outpatient (CLI) | payer MEDICARE, BC ==
[2017-10-08 15:26] LABS: INR 0.9 (<1.2); Prothrombin Time 9.5 sec (9.0-12.0)
== END | disposition home or self-care (01) ==
LOC: LABMAIN 13:59
PROVIDERS: ATTEND Physical Medicine & Rehabilitation
DX: E66.9 Obesity, unspecified (principal); M43.16 Spondylolisthesis, lumbar region; M70.60 Trochanteric bursitis, unspecified hip; M51.17 Intervertebral disc disorders with radiculopathy, lumbosacral region; M47.817 Spondylosis without myelopathy or radiculopathy, lumbosacral region; M41.86 Other forms of scoliosis, lumbar region; M17.11 Unilateral primary osteoarthritis, right knee; M79.671 Pain in right foot; M25.511 Pain in right shoulder; M54.2 Cervicalgia; M48.10 Ankylosing hyperostosis [Forestier], site unspecified; Z79.899 Other long term (current) drug therapy
CPT/HCPCS: 36415; 85610

== ENCOUNTER → 2017-10-31 | Outpatient (CLI) | payer MEDICARE, BC ==
[2017-10-31 15:28] LABS: INR 0.9 (<1.2); Prothrombin Time 9.3 sec (9.0-12.0)
[2017-10-31 15:33] LABS: Partial Thromboplastin Time 20.9 sec (22.0-30.0)
== END | disposition home or self-care (01) ==
LOC: LABWHC1 14:07
PROVIDERS: ATTEND Physical Medicine & Rehabilitation
DX: E66.9 Obesity, unspecified (principal); M51.17 Intervertebral disc disorders with radiculopathy, lumbosacral region; M43.16 Spondylolisthesis, lumbar region; M70.60 Trochanteric bursitis, unspecified hip; M47.817 Spondylosis without myelopathy or radiculopathy, lumbosacral region; M41.86 Other forms of scoliosis, lumbar region; M17.11 Unilateral primary osteoarthritis, right knee; M79.671 Pain in right foot; M25.511 Pain in right shoulder; M54.2 Cervicalgia; M54.5 Low back pain; Z51.81 Encounter for therapeutic drug level monitoring; Z79.01 Long term (current) use of anticoagulants
CPT/HCPCS: 36415; 85610; 85730

== ENCOUNTER 2017-11-09 15:23 | Emergency (ER) | payer MEDICARE, BC ==
[2017-11-09 15:34] VITALS: TEMP 98.5
[2017-11-09] MEDS ORDERED: MORPHINE SULFATE 4 MG/ML SYRINGE IVP STA (16:43)
[2017-11-09] MEDS ORDERED: DIAZEPAM 5 MG/ML 2 ML INJ IVP STA (16:43)
--- NOTE | 2017-11-09 16:47 | ED ---
General Adult HPI - General Chief complaint: Extremity Problem,Nontraumatic Stated complaint: herniated disc/pain Time Seen by Provider: 11/09/17 15:59 Source: patient, RN notes reviewed, old records reviewed Mode of arrival: ambulatory Limitations: no limitations - History of Present Illness Initial comments: 61-year-old female presenting for evaluation of bilateral lower extremity edema. This has been progressive over the past several weeks. She is currently on Lasix and triamterene. She reports initially these medications did help however over the past several days she's had decreased urine output and has not had any improvement in her swelling. Patient's second complaint is of low back pain. She has been dealing with this for the past 6 weeks. She is currently seeing pain management and receiving lumbar injections. She states this has worsened over the past several days, her [place] at home is not improving her pain. She reports shooting pain down both legs. She states that within that helps her pain is walking. - Related Data Home Medications Medication Instructions Recorded Confirmed Furosemide [Lasix] 40 mg PO Q48H 08/09/13 11/09/17 Levothyroxine Sodium [Synthroid] 88 mcg PO DAILY 08/09/13 11/09/17 Warfarin [Coumadin] 7.5 mg PO HS 08/09/13 11/09/17 Cyclobenzaprine [Flexeril] 5 mg PO TID PRN 11/04/15 11/09/17 Gabapentin 600 mg PO TID 11/04/15 11/09/17 Vortioxetine Hydrobromide 10 mg PO DAILY 11/04/15 11/09/17 [Trintellix] Butalb/Acetaminophen/Caffeine 1 - 2 cap PO TID PRN 08/09/17 11/09/17 [Fioricet 50-300-40 mg Capsule] DULoxetine HCL [Cymbalta] 60 mg PO DAILY 08/23/17 11/09/17 Ergocalciferol (Vitamin D2) 50,000 unit PO RALPH 08/23/17 11/09/17 [Vitamin D2] HYDROcodone/APAP 7.5-325MG [[place] 1 tab PO Q6HR PRN 11/09/17 11/09/17 7.5-325] Naproxen 500 mg PO BID 11/09/17 11/09/17 Potassium Chloride ER [K-Dur 10] 10 meq PO DAILY 11/09/17 11/09/17 Triamterene-Hctz 37.5-25Mg 1 cap PO Q48H 11/09/17 11/09/17 [Dyazide 37.5-25 Capsule] rOPINIRole HCL [Requip] 1 mg PO TID 11/09/17 11/09/17 rOPINIRole HCL [Requip] 3 mg PO HS 11/09/17 11/09/17 Previous Rx's Medication Instructions Recorded methylPREDNISolone Dose Pack 4 mg PO DIRECTED #21 package 11/09/17 [Medrol Dose Pack] Allergies Allergy/AdvReac Type Severity Reaction Status Date / Time cefprozil [From Cefzil] Allergy Unknown Verified 11/09/17 16:03 codeine Allergy Unknown Verified 11/09/17 16:03 hydrocodone bitartrate Allergy Confusion Verified 11/09/17 16:03 [From Vicodin] Sulfa (Sulfonamide Allergy Rash/Hives Verified 11/09/17 16:03 Antibiotics) metaxalone [From Skelaxin] AdvReac Nausea & Verified 11/09/17 16:03 Vomiting Review of Systems ROS Statement: Those systems with pertinent positive or pertinent negative responses have been documented in the HPI. ROS Other: All systems not noted in ROS Statement are negative. Past Medical History Past Medical History: Chest Pain / Angina, CVA/TIA, Deep Vein Thrombosis (DVT), Fibromyalgia, GERD/Reflux, GI Bleed, Memory Impairment, Myocardial Infarction ( [place]), Osteoarthritis (OA), Pneumonia, Pulmonary Embolus (PE), Skin Disorder, Sleep Apnea/CPAP/BIPAP, Thyroid Disorder Additional Past Medical History / Comment(s): Stroke, TIA, and Hypothyroid. CHRONIC YEAST IN skin folds. Leakage of urine. Poor nutrition, pt states was told she had an ME based on an old EKG ( never had an heartcath), frequent problems w/vomiting, states doens't have hypertension. Has been getting iron infusions for anemia in Procedures this week. neuorpathy, back pain, ANGINA, BLEEDING ULCERS, PLEURISY, OSTEROPEROSIS, MYFACIAL PAIN SYNDROME, SLEEP APNEA ( DOES NOT USE CPAP). scoliosis Last Myocardial Infarction Date:: 2002 History of Any Multi-Drug Resistant Organisms: None Reported Past Surgical History: Bariatric Surgery, Hernia Repair, Hysterectomy, Orthopedic Surgery, Tubal Ligation Additional Past Surgical History / Comment(s): right rotator cuff repair AND REVISION, VENTRAL HERNIA REPAIR, HIATAL HERNIA REPAIR, LT KNEE ARTHROSCOPY, RECTOCELE, PERINEALPLASTY, GASTRIC BYPASS, Past Anesthesia/Blood Transfusion Reactions: Motion Sickness Past Psychological History: Anxiety, Depression Smoking Status: Never smoker Past Alcohol Use History: Rare Past Drug Use History: None Reported - Past Family History Sister(s) Family Medical History: Cancer General Exam Limitations: no limitations General appearance: alert, in no apparent distress Head exam: Present: atraumatic, normocephalic Eye exam: Present: normal appearance, PERRL ENT exam: Present: normal exam Neck exam: Present: normal inspection. Absent: tenderness, meningismus Respiratory exam: Present: normal lung sounds bilaterally. Absent: respiratory distress Cardiovascular Exam: Present: regular rate, normal rhythm GI/Abdominal exam: Present: soft. Absent: distended, tenderness, guarding Extremities exam: Present: pedal edema Neurological exam: Present: alert, oriented X3, CN II-XII intact. Absent: motor sensory deficit Skin exam: Present: warm, dry, intact. Absent: cyanosis, diaphoretic Course Vital Signs 11/09/17 11/09/17 15:30 19:14 Temperature 98.5 F Pulse Rate 81 89 Respiratory 16 18 Rate Blood Pressure 138/82 153/89 O2 Sat by Pulse 96 98 Oximetry EKG Findings - EKG Comments: EKG Findings:: EKG: Normal sinus rhythm, rate of 85, MS interval 182, QRS duration 74, QTC 435, no ST segment elevation or depression Medical Decision Making - Medical Decision Making 62-year-old female with chronic back pain presenting with worsening pain over the past week. Patient's pain is similar to her chronic pain although worse. She did receive an epidural injection approximately 8 days ago. Patient denies any constitutional symptoms, denies chest pain, denies dyspnea, denies fever. She denies any changes to her bowels or bladder. Denies saddle anesthesia. She is primarily complaining of back pain and bilateral lower extremity swelling. She states she has been on her feet more than usual because of the pain. She states that walking improves her back pain. Laboratory studies obtained, there is mild leukocytosis at 12.1, hemoglobin stable 11.5, potassium is 5.6, patient is currently on potassium supplementation, she will discontinue this and await repeat laboratory testing by her primary care physician in one week. Troponin and BNP are negative. Chest x-ray is negative for pulmonary edema. CT is obtained of the lumbar spine which shows loss of disc height at L2 through S1. No mass present. Patient has good strength bilaterally, she is ambulatory. She has normal sensation in the lower legs. She has a postvoid residual of 75 mls. After Valium and morphine, patient is much more comfortable. She is ambulatory in the emergency department. She is reevaluated and believes she can manage her pain at home. She will observe for fever or worsening back pain as well as weakness or numbness in her lower extremities. She will have repeat laboratory testing by her primary care physician both for hyperkalemia as well as mild leukocytosis. She'll return with worsening or changing symptoms. - Lab Data Result diagrams: 11/09/17 16:41 11/09/17 16:41 Lab Results 11/09/17 11/09/17 11/09/17 Range/Units 16:41 16:41 16:41 WBC 12.1 H (3.8-10.6) k/uL RBC 4.45 (3.80-5.40) m/uL Hgb 11.5 (11.4-16.0) gm/dL Hct 34.9 (34.0-46.0) % MCV 78.3 L (80.0-100.0) fL MCH 25.7 (25.0-35.0) pg MCHC 32.9 (31.0-37.0) g/dL RDW 16.2 H (11.5-15.5) % Plt Count 429 (150-450) k/uL Neutrophils % (Manual) 64 % Lymphocytes % (Manual) 18 % Monocytes % (Manual) 14 % Eosinophils % (Manual) 4 % Neutrophils # (Manual) 7.74 H (1.3-7.7) k/uL Lymphocytes # (Manual) 2.18 (1.0-4.8) k/uL Monocytes # (Manual) 1.69 H (0-1.0) k/uL Eosinophils # (Manual) 0.48 (0-0.7) k/uL Nucleated RBCs 0 (0-0) /100 WBC Large Platelets Present RBC Morphology Normal Anisocytosis Slight Microcytosis Slight PT (9.0-12.0) sec INR (<1.2) APTT (22.0-30.0) sec Sodium 130 L (137-145) mmol/L Potassium 5.6 H (3.5-5.1) mmol/L Chloride 98 (98-107) mmol/L Carbon Dioxide 23 (22-30) mmol/L Anion Gap 9 mmol/L BUN 34 H (7-17) mg/dL Creatinine 0.60 (0.52-1.04) mg/dL Est GFR (CKD-EPI)AfAm >90 (>60 ml/min/1.73 sqM) Est GFR (CKD-EPI)NonAf >90 (>60 ml/min/1.73 sqM) Glucose 90 (74-99) mg/dL Calcium 9.2 (8.4-10.2) mg/dL Magnesium 2.3 (1.6-2.3) mg/dL Total Bilirubin 0.6 (0.2-1.3) mg/dL AST 46 H (14-36) U/L ALT 31 (9-52) U/L Alkaline Phosphatase 85 (38-126) U/L Total Creatine Kinase 293 H (30-135) U/L CK-MB (CK-2) 2.1 (0.0-2.4) ng/mL CK-MB (CK-2) Rel Index 0.7 Troponin I <0.012 (0.000-0.034) ng/mL NT-Pro-B Natriuret Pep pg/mL Total Protein 6.9 (6.3-8.2) g/dL Albumin 4.1 (3.5-5.0) g/dL 11/09/17 11/09/17 Range/Units 16:41 16:41 WBC (3.8-10.6) k/uL RBC (3.80-5.40) m/uL Hgb (11.4-16.0) gm/dL Hct (34.0-46.0) % MCV (80.0-100.0) fL MCH (25.0-35.0) pg MCHC (31.0-37.0) g/dL RDW (11.5-15.5) % Plt Count (150-450) k/uL Neutrophils % (Manual) % Lymphocytes % (Manual) % Monocytes % (Manual) % Eosinophils % (Manual) % Neutrophils # (Manual) (1.3-7.7) k/uL Lymphocytes # (Manual) (1.0-4.8) k/uL Monocytes # (Manual) (0-1.0) k/uL Eosinophils # (Manual) (0-0.7) k/uL Nucleated RBCs (0-0) /100 WBC Large Platelets RBC Morphology Anisocytosis Microcytosis PT 11.5 (9.0-12.0) sec INR 1.2 H (<1.2) APTT 23.0 (22.0-30.0) sec Sodium (137-145) mmol/L Potassium (3.5-5.1) mmol/L Chloride (98-107) mmol/L Carbon Dioxide (22-30) mmol/L Anion Gap mmol/L BUN (7-17) mg/dL Creatinine (0.52-1.04) mg/dL Est GFR (CKD-EPI)AfAm (>60 ml/min/1.73 sqM) Est GFR (CKD-EPI)NonAf (>60 ml/min/1.73 sqM) Glucose (74-99) mg/dL Calcium (8.4-10.2) mg/dL Magnesium (1.6-2.3) mg/dL Total Bilirubin (0.2-1.3) mg/dL AST (14-36) U/L ALT (9-52) U/L Alkaline Phosphatase (38-126) U/L Total Creatine Kinase (30-135) U/L CK-MB (CK-2) (0.0-2.4) ng/mL CK-MB (CK-2) Rel Index Troponin I (0.000-0.034) ng/mL NT-Pro-B Natriuret Pep 230 pg/mL Total Protein (6.3-8.2) g/dL Albumin (3.5-5.0) g/dL Disposition Clinical Impression: Dependent edema, Acute exacerbation of chronic low back pain Disposition: HOME SELF-CARE Condition: Fair Instructions: Leg Edema (ED), Chronic Back Pain (ED) Prescriptions: methylPREDNISolone Dose Pack [Medrol Dose Pack] 4 mg PO DIRECTED #21 package Is patient prescribed a controlled substance at d/c from ED?: No Referrals: Jimy Trammell MD [Primary Care Provider] - 1-2 days Rafaela,Marcio, DO [Doctor of Osteopathic Medicine] - 1-2 days Time of Disposition: 19:17
[2017-11-09 17:00] LABS: Anisocytosis Slight; HGB 11.5 gm/dL (11.4-16.0); Microcytosis Slight; RDW 16.2 % (11.5-15.5)
[2017-11-09 17:03] LABS: ALT 31 U/L (9-52); AST 46 U/L (14-36); Albumin 4.1 g/dL (3.5-5.0); Alkaline Phosphatase 85 U/L (38-126); Anion Gap 9 mmol/L; Blood Urea Nitrogen 34 mg/dL (7-17); Calcium 9.2 mg/dL (8.4-10.2); Carbon Dioxide 23 mmol/L (22-30); Chloride 98 mmol/L (98-107); Glucose 90 mg/dL (74-99); Magnesium 2.3 mg/dL (1.6-2.3); Potassium 5.6 mmol/L (3.5-5.1); Sodium 130 mmol/L (137-145); Total Bilirubin 0.6 mg/dL (0.2-1.3); Total Protein 6.9 g/dL (6.3-8.2)
[2017-11-09 17:09] LABS: Creatine Kinase 293 U/L (30-135)
[2017-11-09 17:14] LABS: HCT 34.9 % (34.0-46.0); MCH 25.7 pg (25.0-35.0); MCHC 32.9 g/dL (31.0-37.0); MCV 78.3 fL (80.0-100.0); Mean Platelet Volume 7.5; Platelet Count 429 k/uL (150-450); RBC 4.45 m/uL (3.80-5.40); WBC 12.1 k/uL (3.8-10.6)
[2017-11-09 17:23] LABS: Creatine Kinase MB 2.1 ng/mL (0.0-2.4); Troponin I <0.012 ng/mL (0.000-0.034)
[2017-11-09 17:54] LABS: INR 1.2 (<1.2); Prothrombin Time 11.5 sec (9.0-12.0)
[2017-11-09 18:03] LABS: Eosinophils # (M) 0.48 k/uL (0-0.7); Lymphocytes # (M) 2.18 k/uL (1.0-4.8); Monocytes # (M) 1.69 k/uL (0-1.0); Neutrophils # (M) 7.74 k/uL (1.3-7.7); Neutrophils % (M) 64 %; Nucleated Red Blood Cells 0 /100 WBC (0-0); Total Cells Counted 100
[2017-11-09 18:04] LABS: Large Platelets Present
--- NOTE | 2017-11-09 18:28 | CT ---
EXAMINATION TYPE: CT lumbar spine wo con DATE OF EXAM: 11/09/2017 6:20 PM COMPARISON: HISTORY: Low back pain radiating down both legs. CT DLP: 4888.7 mGycm Automated exposure control for dose reduction was used. Unenhanced CT of the lumbar spine was performed. Bone and soft tissue window settings are submitted as well as coronal and sagittal reconstructions. The lumbar vertebra have normal alignment. There is narrowing of disc spaces from L2 to S1 with vacuu m disc. There is no compression fracture. There is hypertrophic anterior mild spurring in the lower t horacic and lumbar spine. There is mild multilevel hypertrophic lumbar facet arthropathy. Exam is randhawa ited slightly by motion. There is no paraspinal mass. Sacroiliac joints are intact. I see no bony juwan tructive process. IMPRESSION: Spondylotic changes. No fracture.
--- NOTE | 2017-11-09 18:32 | XR ---
EXAMINATION TYPE: XR chest 2V DATE OF EXAM: 11/09/2017 COMPARISON: 04/20/2016 HISTORY: Back pain TECHNIQUE: Frontal and lateral views of the chest are obtained. FINDINGS: There is no heart failure nor confluent pneumonic infiltrate. Costophrenic angles are alek r. Heart size is normal. Bony thorax is intact. IMPRESSION: No active cardiopulmonary disease. Normal heart. No change.
[2017-11-09 19:16] VITALS: BP 153/89; PULSE 89; RESP 18
== END 2017-11-09 19:25 | disposition home or self-care (01) ==
LOC: EC 15:23
DX: M54.5 Low back pain (principal); G89.29 Other chronic pain; R60.0 Localized edema; M79.604 Pain in right leg; M79.605 Pain in left leg; M79.7 Fibromyalgia; I25.2 Old myocardial infarction; M19.90 Unspecified osteoarthritis, unspecified site; E03.9 Hypothyroidism, unspecified; F32.9 Major depressive disorder, single episode, unspecified; F41.9 Anxiety disorder, unspecified; Z86.711 Personal history of pulmonary embolism; Z86.718 Personal history of other venous thrombosis and embolism; Z86.73 Personal history of transient ischemic attack (TIA), and cerebral infarction without residual deficits; Z79.01 Long term (current) use of anticoagulants; Z79.1 Long term (current) use of non-steroidal anti-inflammatories (NSAID); Z79.899 Other long term (current) drug therapy; Z88.5 Allergy status to narcotic agent; Z88.2 Allergy status to sulfonamides; Z88.1 Allergy status to other antibiotic agents
CPT/HCPCS: 51798; 36415; 93005; 83880; 80053; 82550; 82553; 83735; 84484; 85025; 85610; 85730; 71046; 72131; 99284; 96374; 96375; J2270; J3360

== ENCOUNTER 2018-01-02 14:55 | Emergency (ER) | payer MEDICARE, BC ==
[2018-01-02 15:08] VITALS: RESP 18; TEMP 98.7
--- NOTE | 2018-01-02 15:25 | ED ---
General Adult HPI <Puneet Mason - Last Filed: 01/02/18 16:42> - General Source: patient, RN notes reviewed, old records reviewed Mode of arrival: ambulatory Limitations: no limitations <Agus Yoo - Last Filed: 01/02/18 16:48> - General Chief complaint: Back Pain/Injury Stated complaint: back pain Time Seen by Provider: 01/02/18 15:10 - History of Present Illness Initial comments: Patient 62-year-old female with significant past medical history for chronic low back pain, disc herniation at L2/L3, presented to the emergency room today with chief complaint of increased lower back pain. Patient states that she has been having increased pain since July of this year. She states that she had a fall. She states she's been following up with orthopedics. She has been seeing Dr. Dr. Russo who was giving her injections which were helping some. She states that over the last few months pains been increasing getting worse. She states she's not been referred over to see Dr. Escobar and she does have an appointment this Monday. Patient does admit that she feels pain that shoots down to the bottom of her feet bilaterally. She describes it as pressure and squeezing. Patient states that she has had a few episodes of urinary incontinence. She states that 10 days was last known episode. She denies any saddle anesthesia. She denies any new injury or trauma. States pain is worse with certain movements specifically when she lays down. States better when she is standing up. Patient does admit that she has been prescribed oral Dilaudid. She states she did not take this today. She states she took acetaminophen. Patient denies any recent fever, chills, shortness of breath, chest pain, back pain, abdominal pain, nausea or vomiting, numbness or tingling, dysuria or hematuria, constipation or diarrhea, headaches or visual changes, or any other complaints. (Agus Yoo) - Related Data Home Medications Medication Instructions Recorded Confirmed Levothyroxine Sodium [Synthroid] 88 mcg PO DAILY 08/09/13 01/02/18 Warfarin [Coumadin] 7.5 mg PO HS 08/09/13 01/02/18 Cyclobenzaprine [Flexeril] 5 mg PO TID PRN 11/04/15 01/02/18 Vortioxetine Hydrobromide 10 mg PO DAILY 11/04/15 01/02/18 [Trintellix] Butalb/Acetaminophen/Caffeine 1 - 2 cap PO TID PRN 08/09/17 01/02/18 [Fioricet 50-300-40 mg Capsule] DULoxetine HCL [Cymbalta] 60 mg PO DAILY 08/23/17 01/02/18 HYDROcodone/APAP 7.5-325MG [[place] 1 tab PO Q6HR PRN 11/09/17 01/02/18 7.5-325] Naproxen 500 mg PO BID 11/09/17 01/02/18 Potassium Chloride ER [K-Dur 10] 10 meq PO DAILY 11/09/17 01/02/18 rOPINIRole HCL [Requip] 1 mg PO TID 11/09/17 01/02/18 rOPINIRole HCL [Requip] 3 mg PO HS 11/09/17 01/02/18 HYDROmorphone HCL 4 mg PO TID PRN 01/02/18 01/02/18 Previous Rx's Medication Instructions Recorded methylPREDNISolone Dose Pack 4 mg PO DIRECTED #21 package 01/02/18 [Medrol Dose Pack] Allergies Allergy/AdvReac Type Severity Reaction Status Date / Time cefprozil [From Cefzil] Allergy Unknown Verified 01/02/18 16:02 codeine Allergy Unknown Verified 01/02/18 16:02 hydrocodone bitartrate Allergy Confusion Verified 01/02/18 16:02 [From Vicodin] Sulfa (Sulfonamide Allergy Rash/Hives Verified 01/02/18 16:02 Antibiotics) metaxalone [From Skelaxin] AdvReac Nausea & Verified 01/02/18 16:02 Vomiting Review of Systems ROS Other: All systems not noted in ROS Statement are negative. <Puneet Mason - Last Filed: 01/02/18 16:42> ROS Other: All systems not noted in ROS Statement are negative. <Agus Yoo - Last Filed: 01/02/18 16:48> ROS Statement: Those systems with pertinent positive or pertinent negative responses have been documented in the HPI. Past Medical History Past Medical History: Chest Pain / Angina, CVA/TIA, Deep Vein Thrombosis (DVT), Fibromyalgia, GERD/Reflux, GI Bleed, Memory Impairment, Myocardial Infarction ( [place]), Osteoarthritis (OA), Pneumonia, Pulmonary Embolus (PE), Skin Disorder, Sleep Apnea/CPAP/BIPAP, Thyroid Disorder Additional Past Medical History / Comment(s): Stroke, TIA, and Hypothyroid. CHRONIC YEAST IN skin folds. Leakage of urine. Poor nutrition, pt states was told she had an [place] based on an old EKG ( never had an heartcath), frequent problems w/vomiting, states doens't have hypertension. Has been getting iron infusions for anemia in Procedures this week. neuorpathy, back pain, ANGINA, BLEEDING ULCERS, PLEURISY, OSTEROPEROSIS, MYFACIAL PAIN SYNDROME, SLEEP APNEA ( DOES NOT USE CPAP). scoliosis Last Myocardial Infarction Date:: 2002 History of Any Multi-Drug Resistant Organisms: None Reported Past Surgical History: Bariatric Surgery, Hernia Repair, Hysterectomy, Orthopedic Surgery, Tubal Ligation Additional Past Surgical History / Comment(s): right rotator cuff repair AND REVISION, VENTRAL HERNIA REPAIR, HIATAL HERNIA REPAIR, LT KNEE ARTHROSCOPY, RECTOCELE, PERINEALPLASTY, GASTRIC BYPASS, Past Anesthesia/Blood Transfusion Reactions: Motion Sickness Past Psychological History: Anxiety, Depression Smoking Status: Never smoker Past Alcohol Use History: Rare Past Drug Use History: None Reported - Past Family History Sister(s) Family Medical History: Cancer <Agus Yoo - Last Filed: 01/02/18 16:48> General Exam <Puneet Mason - Last Filed: 01/02/18 16:42> Limitations: no limitations <Agus Yoo - Last Filed: 01/02/18 16:48> - General Exam Comments Initial Comments: General: The patient is awake and alert, in no distress, and does not appear acutely ill. Eye: Extra-ocular movements are intact. No nystagmus. There is normal conjunctiva bilaterally. No signs of icterus. Ears, nose, mouth and throat: There are moist mucous membranes and no oral lesions. Neck: The neck is supple, there is no tenderness or JVD. Cardiovascular: There is a regular rate and rhythm. No murmur, rub or gallop is appreciated. Respiratory: Lungs are clear to auscultation, respirations are non-labored, breath sounds are equal. No wheezes, stridor, rales, or rhonchi. Gastrointestinal: Soft, non-distended, non-tender abdomen without masses or organomegaly noted. There is no rebound or guarding present. No CVA tenderness. Musculoskeletal: Normal ROM, no tenderness. Sensation intact. Strength 5/5. Pulses equal bilaterally 2+. Neurological: A&O x 3. CN II-XII intact, There are no obvious motor or sensory deficits. Coordination appears grossly intact. Speech is normal. Skin: Skin is warm and dry and no rashes or lesions are noted. Psychiatric: Cooperative, appropriate mood & affect, normal judgment. : Normal rectal tone (Agus Yoo) Course <Puneet Mason - Last Filed: 01/02/18 16:42> <Agus Yoo - Last Filed: 01/02/18 16:48> Vital Signs 01/02/18 15:05 Temperature 98.7 F Pulse Rate 88 Respiratory 18 Rate Blood Pressure 138/80 O2 Sat by Pulse 97 Oximetry - Reevaluation(s) Reevaluation #1: 01/02/18 16:42 Patient reevaluated by myself, Dr. Mason. Patient resting in bed. No leg weakness on exam. Sensation is intact. Patient states she did have an episode of incontinence around 10 days ago. Patient states she also has been straining to urinate some. Full catheter was placed with around 200 mL out. Case was discussed with Lupillo, practitioner with Dr. Escobar who is agreeable with steroid taper and states otherwise patient can be safely discharged and follow-up with Dr. Escobar as planned on Monday. He did review recent MRI from [facility] that they have. (Puneet Mason) Medical Decision Making <Puneet Mason - Last Filed: 01/02/18 16:42> <Agus Yoo - Last Filed: 01/02/18 16:48> - Medical Decision Making Patient was improving here in emergency room. Patient's previous MRI and CAT scan of the lumbar spine were reviewed. Patient fully catheter removed after post void showing greater than 700. Catheter placed only showing less than 200 mL. Case discussed and seen by the physician Dr. Mason who did discuss with on- call orthopedics physician technician assistant Lupillo. Patient given dose of steroids pain medication here in emergency room. Advised patient to follow-up appointment on Monday. Will be continued on steroids. Advised return to emergency room for any other concerns. (Agus Yoo) - Lab Data Lab Results 01/02/18 Range/Units 16:20 Urine Color Light Yellow Urine Appearance Clear (Clear) Urine pH 5.5 (5.0-8.0) Ur Specific [place] 1.008 (1.001-1.035) Urine Protein Negative (Negative) Urine Glucose (UA) Negative (Negative) Urine Ketones Negative (Negative) Urine Blood Negative (Negative) Urine Nitrite Negative (Negative) Urine Bilirubin Negative (Negative) Urine Urobilinogen <2.0 (<2.0) mg/dL Ur Leukocyte Esterase Negative (Negative) Disposition <Puneet Mason - Last Filed: 01/02/18 16:42> Is patient prescribed a controlled substance at d/c from ED?: No Time of Disposition: 16:48 <Agus Yoo - Last Filed: 01/02/18 16:48> Clinical Impression: Acute exacerbation of chronic low back pain Disposition: HOME SELF-CARE Condition: Good Instructions: Chronic Back Pain (ED) Additional Instructions: Please use medication as discussed. Please follow-up with orthopedics over the next 3 days with scheduled appointment. Please return to emergency room if the symptoms increase or worsen or for any other concerns. Prescriptions: methylPREDNISolone Dose Pack [Medrol Dose Pack] 4 mg PO DIRECTED #21 package Referrals: Jimy Trammell MD [Primary Care Provider] - 1-2 days
[2018-01-02 16:33] LABS: Appearance,Urine Clear (Clear); Bilirubin,Urine Negative (Negative); Blood,Urine Negative (Negative); Color,Urine Light Yellow; Glucose,Urine (UA) Negative (Negative); Ketones,Urine Negative (Negative); Leukocyte Esterase,Urine Negative (Negative); Nitrite,Urine Negative (Negative); PH, Urine 5.5 (5.0-8.0); Protein,Urine Negative (Negative); Specific Gravity,Urine 1.008 (1.001-1.035); Urobilinogen,Urine <2.0 mg/dL (<2.0)
[2018-01-02] MEDS ORDERED: ONDANSETRON ODT 4 MG TAB PO STA (16:43)
[2018-01-02] MEDS ORDERED: HYDROmorphone 1 MG/ML 1 ML SYRINGE IM STA (16:43)
[2018-01-02] MEDS ORDERED: DEXAMETHASONE SOD PHOSPHATE 10 MG/ML 1 ML VIAL IV STA (16:43)
[2018-01-02] MEDS ORDERED: DEXAMETHASONE SOD PHOSPHATE 10 MG/ML 1 ML VIAL IM STA (16:56)
[2018-01-02 17:33] VITALS: BP 157/71; PULSE 78
== END 2018-01-02 17:32 | disposition home or self-care (01) ==
LOC: EC 14:55
DX: G89.29 Other chronic pain (principal); M54.5 Low back pain; M79.671 Pain in right foot; M79.672 Pain in left foot; R32 Unspecified urinary incontinence; E03.9 Hypothyroidism, unspecified; F32.9 Major depressive disorder, single episode, unspecified; F41.9 Anxiety disorder, unspecified; I25.2 Old myocardial infarction; D64.9 Anemia, unspecified; M19.90 Unspecified osteoarthritis, unspecified site; Z88.1 Allergy status to other antibiotic agents; Z88.2 Allergy status to sulfonamides; Z88.5 Allergy status to narcotic agent; Z88.8 Allergy status to other drugs, medicaments and biological substances; Z79.01 Long term (current) use of anticoagulants; Z79.1 Long term (current) use of non-steroidal anti-inflammatories (NSAID); Z79.899 Other long term (current) drug therapy; Z86.718 Personal history of other venous thrombosis and embolism; Z86.711 Personal history of pulmonary embolism; Z86.73 Personal history of transient ischemic attack (TIA), and cerebral infarction without residual deficits
CPT/HCPCS: 81003; 99284; 51701; 96372 ×2; J1100; J1170

== ENCOUNTER → 2018-01-28 | Outpatient (CLI) | payer MEDICARE, BC | END | disposition home or self-care (01) | LOC: LABMAIN 13:24 | PROVIDERS: ATTEND Family Medicine | DX: Z53.9 Procedure and treatment not carried out, unspecified reason (principal) ==

== ENCOUNTER 2018-02-11 15:06 | Emergency (ER) | payer MEDICARE, BC ==
[2018-02-11 15:29] VITALS: RESP 18; TEMP 97.8
[2018-02-11] MEDS ORDERED: HYDROmorphone 1 MG/ML 1 ML SYRINGE IM STA (16:04)
[2018-02-11] MEDS ORDERED: DIAZEPAM 5 MG TAB PO STA (16:04)
--- NOTE | 2018-02-11 16:12 | ED ---
Back Pain HPI - General Chief Complaint: Back Pain/Injury Stated Complaint: LEG PAIN Time Seen by Provider: 02/11/18 15:44 Source: patient, RN notes reviewed, old records reviewed - History of Present Illness Initial Comments: This is a 63-year-old female the ER for evaluation. Patient has a for evaluation of back pain patient's fall this facility for back pain, patient coming in with intractable back pain. No neurological deficit no recent trauma MD Complaint: back pain -: week(s) Similar Symptoms Previously: Yes Place: home Radiation: left leg, right leg Severity: severe Severity scale (1-10): 10 Quality: stabbing, aching Consistency: constant Improves With: immobilization, medication Worsens With: movement, sitting upright, walking Context: bending Associated Symptoms: denies other symptoms - Related Data Home Medications Medication Instructions Recorded Confirmed Levothyroxine Sodium [Synthroid] 88 mcg PO DAILY 08/09/13 01/02/18 Warfarin [Coumadin] 7.5 mg PO HS 08/09/13 01/02/18 Cyclobenzaprine [Flexeril] 5 mg PO TID PRN 11/04/15 01/02/18 Vortioxetine Hydrobromide 10 mg PO DAILY 11/04/15 01/02/18 [Trintellix] Butalb/Acetaminophen/Caffeine 1 - 2 cap PO TID PRN 08/09/17 01/02/18 [Fioricet 50-300-40 mg Capsule] DULoxetine HCL [Cymbalta] 60 mg PO DAILY 08/23/17 01/02/18 HYDROcodone/APAP 7.5-325MG [[place] 1 tab PO Q6HR PRN 11/09/17 01/02/18 7.5-325] Naproxen 500 mg PO BID 11/09/17 01/02/18 Potassium Chloride ER [K-Dur 10] 10 meq PO DAILY 11/09/17 01/02/18 rOPINIRole HCL [Requip] 1 mg PO TID 11/09/17 01/02/18 rOPINIRole HCL [Requip] 3 mg PO HS 11/09/17 01/02/18 HYDROmorphone HCL 4 mg PO TID PRN 01/02/18 01/02/18 Previous Rx's Medication Instructions Recorded methylPREDNISolone Dose Pack 4 mg PO DIRECTED #21 package 01/02/18 [Medrol Dose Pack] Allergies Allergy/AdvReac Type Severity Reaction Status Date / Time cefprozil [From Cefzil] Allergy Unknown Verified 01/02/18 16:02 codeine Allergy Unknown Verified 01/02/18 16:02 hydrocodone bitartrate Allergy Confusion Verified 01/02/18 16:02 [From Vicodin] Sulfa (Sulfonamide Allergy Rash/Hives Verified 01/02/18 16:02 Antibiotics) metaxalone [From Skelaxin] AdvReac Nausea & Verified 01/02/18 16:02 Vomiting Review of Systems ROS Statement: Those systems with pertinent positive or pertinent negative responses have been documented in the HPI. ROS Other: All systems not noted in ROS Statement are negative. Past Medical History Past Medical History: Chest Pain / Angina, CVA/TIA, Deep Vein Thrombosis (DVT), Fibromyalgia, GERD/Reflux, GI Bleed, Memory Impairment, Myocardial Infarction ( [place]), Osteoarthritis (OA), Pneumonia, Pulmonary Embolus (PE), Skin Disorder, Sleep Apnea/CPAP/BIPAP, Thyroid Disorder Additional Past Medical History / Comment(s): Stroke, TIA, and Hypothyroid. CHRONIC YEAST IN skin folds. Leakage of urine. Poor nutrition, pt states was told she had an [place] based on an old EKG ( never had an heartcath), frequent problems w/vomiting, states doens't have hypertension. Has been getting iron infusions for anemia in Procedures this week. neuorpathy, back pain, ANGINA, BLEEDING ULCERS, PLEURISY, OSTEROPEROSIS, MYFACIAL PAIN SYNDROME, SLEEP APNEA ( DOES NOT USE CPAP). scoliosis Last Myocardial Infarction Date:: 2002 History of Any Multi-Drug Resistant Organisms: None Reported Past Surgical History: Bariatric Surgery, Hernia Repair, Hysterectomy, Orthopedic Surgery, Tubal Ligation Additional Past Surgical History / Comment(s): right rotator cuff repair AND REVISION, VENTRAL HERNIA REPAIR, HIATAL HERNIA REPAIR, LT KNEE ARTHROSCOPY, RECTOCELE, PERINEALPLASTY, GASTRIC BYPASS, Past Anesthesia/Blood Transfusion Reactions: Motion Sickness Past Psychological History: Anxiety, Depression Smoking Status: Never smoker Past Alcohol Use History: Rare Past Drug Use History: None Reported - Past Family History Sister(s) Family Medical History: Cancer General Exam General appearance: alert, in no apparent distress Head exam: Present: atraumatic, normocephalic, normal inspection Eye exam: Present: normal appearance, PERRL, EOMI. Absent: scleral icterus, conjunctival injection, periorbital swelling ENT exam: Present: normal exam, mucous membranes moist Neck exam: Present: normal inspection. Absent: tenderness, meningismus, lymphadenopathy Respiratory exam: Present: normal lung sounds bilaterally. Absent: respiratory distress, wheezes, rales, rhonchi, stridor Cardiovascular Exam: Present: regular rate, normal rhythm, normal heart sounds. Absent: systolic murmur, diastolic murmur, rubs, gallop, clicks GI/Abdominal exam: Present: soft, normal bowel sounds. Absent: distended, tenderness, guarding, rebound, rigid Extremities exam: Present: normal inspection, full ROM, normal capillary refill. Absent: tenderness, pedal edema, joint swelling, calf tenderness Back exam: Present: normal inspection Neurological exam: Present: alert, oriented X3, CN II-XII intact Psychiatric exam: Present: normal affect, normal mood Skin exam: Present: warm, dry, intact, normal color. Absent: rash Course Vital Signs 02/11/18 02/11/18 02/11/18 15:25 17:16 17:22 Temperature 97.8 F 97.8 F Pulse Rate 90 89 89 Respiratory 18 18 18 Rate Blood Pressure 140/113 143/81 143/81 O2 Sat by Pulse 97 98 98 Oximetry Medical Decision Making - Medical Decision Making 53 female given pain control here in the emergency room and discharged home Disposition Clinical Impression: Thoracic back sprain, Mechanical back pain, Sciatica Disposition: HOME SELF-CARE Condition: Good Instructions: Acute Low Back Pain (ED), Chronic Back Pain (ED) Is patient prescribed a controlled substance at d/c from ED?: No Referrals: Jimy Trammell MD [Primary Care Provider] - 1-2 days
[2018-02-11 17:17] VITALS: BP 143/81; PULSE 89
== END 2018-02-11 17:22 | disposition home or self-care (01) ==
LOC: EC 15:06
DX: S23.3XXA Sprain of ligaments of thoracic spine, initial encounter (principal); M54.31 Sciatica, right side; M54.32 Sciatica, left side; M79.7 Fibromyalgia; I25.2 Old myocardial infarction; M19.90 Unspecified osteoarthritis, unspecified site; E03.9 Hypothyroidism, unspecified; G62.9 Polyneuropathy, unspecified; F41.9 Anxiety disorder, unspecified; F32.9 Major depressive disorder, single episode, unspecified; G47.30 Sleep apnea, unspecified; Z99.89 Dependence on other enabling machines and devices; Z86.73 Personal history of transient ischemic attack (TIA), and cerebral infarction without residual deficits; Z86.711 Personal history of pulmonary embolism; Z86.718 Personal history of other venous thrombosis and embolism; Z79.01 Long term (current) use of anticoagulants; Z79.1 Long term (current) use of non-steroidal anti-inflammatories (NSAID); Z79.899 Other long term (current) drug therapy; Z88.1 Allergy status to other antibiotic agents; Z88.5 Allergy status to narcotic agent; Z88.2 Allergy status to sulfonamides; Z88.8 Allergy status to other drugs, medicaments and biological substances; X50.1XXA Overexertion from prolonged static or awkward postures, initial encounter; Y92.009 Unspecified place in unspecified non-institutional (private) residence as the place of occurrence of the external cause
CPT/HCPCS: 99283; 96372; J1170

== ENCOUNTER 2018-02-13 22:48 | Observation (INO) | payer MEDICARE, BC ==
[2018-02-14] MEDS ORDERED: MORPHINE SULFATE 4 MG/ML SYRINGE IM STA (00:14)
--- NOTE | 2018-02-14 00:20 | ED ---
General Adult HPI - General Source: patient, family, RN notes reviewed Mode of arrival: ambulatory Limitations: no limitations <Lizandro Jimenez - Last Filed: 02/14/18 01:24> <Christos Anderson - Last Filed: 02/26/18 12:37> - General Chief complaint: Back Pain/Injury Stated complaint: BACK PAIN Time Seen by Provider: 02/14/18 00:00 - History of Present Illness Initial comments: If complaint and history of present illness this is a 63-year-old female with acute exacerbation of chronic low back pain. The patient was in emergency room 2 days ago received a pain shot went home took some pain medication was able to sleep. Patient reports having had an RFA bilaterally on January 29 of this past year. The patient complains of discomfort persists. Past history of ruptured disks from L2 through S1. Patient reports always problems started in mid July and she had a slip and fall onto her buttocks. Patient complains of pain radiates from the lumbar area down to the posterior Bilaterally. (Lizandro Jimenez) - Related Data Home Medications Medication Instructions Recorded Confirmed Levothyroxine Sodium [Synthroid] 88 mcg PO DAILY 08/09/13 02/14/18 Cyclobenzaprine [Flexeril] 5 mg PO TID PRN 11/04/15 02/14/18 Vortioxetine Hydrobromide 10 mg PO DAILY 11/04/15 02/14/18 [Trintellix] Butalb/Acetaminophen/Caffeine 2 cap PO TID PRN 08/09/17 02/14/18 [Fioricet 50-300-40 mg Capsule] DULoxetine HCL [Cymbalta] 60 mg PO HS 08/23/17 02/14/18 rOPINIRole HCL [Requip] 1 mg PO TID 11/09/17 02/14/18 rOPINIRole HCL [Requip] 3 mg PO HS 11/09/17 02/14/18 Cetirizine HCl 10 mg PO DAILY 02/14/18 02/14/18 Rivaroxaban [Xarelto] 10 mg PO HS 02/14/18 02/14/18 Previous Rx's Medication Instructions Recorded Gabapentin [Neurontin] 800 mg PO TID cap 02/15/18 oxyCODONE-APAP 10-325MG [Percocet 1 each PO Q6H PRN tab 02/15/18 10-325 mg] Allergies Allergy/AdvReac Type Severity Reaction Status Date / Time cefprozil [From Cefzil] Allergy Unknown Verified 02/14/18 03:54 codeine Allergy Unknown Verified 02/14/18 03:54 Sulfa (Sulfonamide Allergy Rash/Hives Verified 02/14/18 03:54 Antibiotics) valdecoxib [From Bextra] Allergy Unknown Verified 02/14/18 09:34 metaxalone [From Skelaxin] AdvReac Nausea & Verified 02/14/18 03:54 Vomiting Review of Systems ROS Other: All systems not noted in ROS Statement are negative. <Lizandro Jimenez - Last Filed: 02/14/18 01:24> ROS Other: All systems not noted in ROS Statement are negative. <Christos Anderson - Last Filed: 02/26/18 12:37> ROS Statement: Those systems with pertinent positive or pertinent negative responses have been documented in the HPI. Review of systems. Patient denies any headache no neck pain no chest pain or shortness of breath no abdominal pain. The pain goes from the bilateral lumbar down the posterior aspect of her legs to her calves. She states she is able to void but has to do a standing up. All systems reviewed. Patient has chronic medical problems include angina, previous TIA, DVT, 5 myalgia, GERD, GI bleed, memory impairment, previous MS. Osteoarthritis, pneumonia, PE call sleep apnea with CPAP hypothyroidism. The patient's surgeries include bariatric surgery, hernia repair, hysterectomy, right shoulder orthopedic surgery. Tubal ligation. Family history not contributory. Patient has ALLERGIES to separate, codeine, hydrocodone, sulfa and metaxalone. The patient reports she can and does take [place] but not Vicodin. (Lizandro Jimenez) Past Medical History Past Medical History: Chest Pain / Angina, CVA/TIA, Deep Vein Thrombosis (DVT), Fibromyalgia, GERD/Reflux, GI Bleed, Memory Impairment, Myocardial Infarction ( [place]), Osteoarthritis (OA), Pneumonia, Pulmonary Embolus (PE), Skin Disorder, Sleep Apnea/CPAP/BIPAP, Thyroid Disorder Additional Past Medical History / Comment(s): Stroke, TIA, and Hypothyroid. CHRONIC YEAST IN skin folds. Leakage of urine. Poor nutrition, pt states was told she had an [place] based on an old EKG ( never had an heartcath), frequent problems w/vomiting, states doens't have hypertension. Has been getting iron infusions for anemia in Procedures this week. neuorpathy, back pain, ANGINA, BLEEDING ULCERS, PLEURISY, OSTEROPEROSIS, MYFACIAL PAIN SYNDROME, SLEEP APNEA ( DOES NOT USE CPAP). scoliosis Last Myocardial Infarction Date:: 2002 History of Any Multi-Drug Resistant Organisms: None Reported Past Surgical History: Bariatric Surgery, Hernia Repair, Hysterectomy, Orthopedic Surgery, Tubal Ligation Additional Past Surgical History / Comment(s): right rotator cuff repair AND REVISION, VENTRAL HERNIA REPAIR, HIATAL HERNIA REPAIR, LT KNEE ARTHROSCOPY, RECTOCELE, PERINEALPLASTY, GASTRIC BYPASS, Past Anesthesia/Blood Transfusion Reactions: Motion Sickness Past Psychological History: Anxiety, Depression Smoking Status: Never smoker Past Alcohol Use History: Rare Past Drug Use History: None Reported - Past Family History Sister(s) Family Medical History: Cancer <Lizandro Jimenez - Last Filed: 02/14/18 01:24> General Exam Limitations: no limitations <Lizandro Jimenez - Last Filed: 02/14/18 01:24> <Christos Anderson - Last Filed: 02/26/18 12:37> - General Exam Comments Initial Comments: General: The patient is awake and alert, iis pacing around the room because of low back pain. Can't find a position of comfort. Vital signs temp 98.0 pulse 110 respiratory rate 20 pulse ox 90% room air blood pressure 150/61 Eye: no complaint of visual acuity changes Neck: The neck is supple, Respiratory: no respiratory distress or complaints of shortness of breath. Back: pain from bilateral lumbar down to her calves. No foot drop. Patient cannot find any position of comfort. able to release her urine and stool. Musculoskeletal: Nhistory of fall in July with subsequent rupture of L2 through S1. Neurological: lumbar radiculopathy bilateral. No foot drop. (Lizandro Jimenez) Vital Signs 02/13/18 02/14/18 23:33 02:27 Temperature 98.0 F Pulse Rate 110 H 105 H Respiratory 20 18 Rate Blood Pressure 150/61 122/50 O2 Sat by Pulse 98 100 Oximetry Medical Decision Making <Lizandro Jimenez - Last Filed: 02/14/18 01:24> - Radiology Data Radiology results: report reviewed (CT lumbar spine is negative for new changes) , image reviewed <Christos Anderson - Last Filed: 02/26/18 12:37> - Medical Decision Making medical decision making; this is a 63-year-old female who had MRSA bilateral 2 weeks ago. Patient complains of significant pain with bilateral lumbar radiculopathy. CAT scan pending. Final disposition by Dr. Anderson. On emergency the patient received morphine and Decadron IM. (Lizandro Jimenez) 63 female the ER for evaluation of back pain severe back pain with bilateral lumbar radiculopathy, CT shows no acute changes, no neurological findings, patient is and will be admitted for severe pain and pain control (Christos Anderson) Disposition <Lizandro Jimenez - Last Filed: 02/14/18 01:24> Is patient prescribed a controlled substance at d/c from ED?: No <Christos Anderson - Last Filed: 02/26/18 12:37> Clinical Impression: Sciatica, Mechanical back pain, Mid back pain, Lumbar radiculopathy, Chronic pain Disposition: ADMITTED IP TO THIS HOSP Condition: Fair
[2018-02-14] MEDS ORDERED: DEXAMETHASONE SOD PHOSPHATE 10 MG/ML 1 ML VIAL IM STA (00:23)
--- NOTE | 2018-02-14 01:52 | CT ---
EXAMINATION TYPE: CT lumbar spine wo con DATE OF EXAM: 02/14/2018 1:21 AM COMPARISON: 11/09/2017 HISTORY: pain CT DLP: [id number] mGycm Automated exposure control for dose reduction was used. Unenhanced CT of the lumbar spine was performed. Bone and soft tissue window settings are submitted as well as coronal and sagittal reconstructions. The lumbar vertebra have fairly normal alignment. There is degenerative disc space narrowing througho ut the lumbar spine with spurring of the endplates. There is no compression fracture. Posterior eleme nts appear intact. I see no focal bone destruction. There is no evidence of lumbar paraspinal mass. S acroiliac joints are intact.. IMPRESSION: Multilevel spondylotic changes. No fracture seen. No adverse change compared to old exam.
[2018-02-14] MEDS ORDERED: HYDROmorphone 1 MG/ML 1 ML SYRINGE IVP STA (02:11)
[2018-02-14] MEDS ORDERED: DIAZEPAM 5 MG/ML 2 ML INJ IVP STA (02:12)
[2018-02-14] MEDS ORDERED: diphenhydrAMINE 50 MG/ML 1 ML VIAL IVP STA (02:12)
[2018-02-14] MEDS ORDERED: SODIUM CHLORIDE 0.9% 1,000 ML IV ONE (02:33)
[2018-02-14] MEDS ORDERED: diphenhydrAMINE 50 MG/ML 1 ML VIAL IVP PRN (02:34)
[2018-02-14] MEDS ORDERED: DIAZEPAM 5 MG/ML 2 ML INJ IVP PRN (02:34)
[2018-02-14] MEDS ORDERED: KETOROLAC 30 MG/ML 1 ML VIAL IVP STA (02:34)
[2018-02-14 04:17] VITALS: BMI 51.2
[2018-02-14] MEDS: HYDROmorphone 1 MG/ML 1 ML SYRINGE IVP PRN ×2 (04:26→11:03)
[2018-02-14 07:56] VITALS: RESP 18
[2018-02-14] MEDS: DIAZEPAM 5 MG/ML (10 ML MDV) IVP PRN ×3 (08:29→23:37)
[2018-02-14] MEDS ORDERED: BUTALB/APAP/CAFF 50-325-40MG TAB PO PRN (11:39)
[2018-02-14] MEDS: HYDROcodone/APAP 10-325MG 1 EACH TAB PO PRN ×2 (12:21→18:19)
[2018-02-14] MEDS: GABAPENTIN 300 MG CAP PO SCH ×3 (12:22→20:39)
[2018-02-14] MEDS: CYCLOBENZAPRINE 5 MG TAB PO PRN ×2 (15:51→23:37)
[2018-02-14] MEDS: VORTIOXETINE HYDROBROMIDE 10 MG TABLET PO SCH (16:05)
[2018-02-14] MEDS: LEVOTHYROXINE 88 MCG TAB PO SCH (16:05)
--- NOTE | 2018-02-14 18:11 | HP ---
HISTORY AND PHYSICAL DATE OF ADMISSION: 02/14/2018. DATE OF SERVICE: 02/14/2018. PRESENTING COMPLAINT: Acute on chronic low back pain. HISTORY OF PRESENTING COMPLAINT: This is a pleasant 63-year-old patient of Dr. Trammell from [place]. Chronic stable medical conditions include chronic fibromyalgia, GERD, mild memory impairment, osteoarthritis, obstructive sleep apnea, hypothyroid, chronic urine incontinence, osteoporosis, myofascial pain syndrome, obstructive sleep apnea does not use his CPAP, scoliosis. The patient is being followed by Dr. Russo from [facility] for a long time for lower back pain. The patient January 29 did go into radiofrequency ablation. The patient's pain is becoming more intolerable, does go down on the back of the legs and both the sides. The patient feels restless all the time and has to keep rocking and moving. Because she did try to reach him, was unable to contact the office and hence she decided to present to the ER. Dr. Russo was consulted this morning. Otherwise patient able to tolerate a diet. The patient did have a bowel movement yesterday. No trouble with urination which is chronic incontinence. No fever. No chills. REVIEW OF SYSTEMS: CONSTITUTIONAL. Tired. HEENT: None. RESPIRATORY: None. GASTROINTESTINAL: Heartburn. GENITOURINARY: Urine incontinence. DERMATOLOGICAL, HEMATOLOGIC, LYMPHATIC: none. PSYCHIATRY none. MUSCULOSKELETAL: As above. NEUROLOGICAL: As above. PAST MEDICAL HISTORY: DVT, fibromyalgia, GERD, GI bleed, some memory impairment, questionable RI, osteoarthritis, pulmonary embolism, obstructive sleep apnea, does not use CPAP, hypothyroid, chronic yeast in skin folds, urine incontinence, chronic anemia, iron deficiency, peripheral neuropathy, chronic low back pain, bleeding ulcers, pleurisy, osteoporosis, myofascial pain syndrome. PAST SURGICAL HISTORY: Bariatric surgery, hernia repair, hysterectomy, tubal ligation, right rotator cuff repair, revision; ventral hernia repair, hiatal hernia repair, left knee arthroscopy, gastric bypass. PSYCH HISTORY: Anxiety depression. SOCIAL HISTORY: No smoking. Alcohol rarely. Lives with her fiance. FAMILY HISTORY: Of cancer type unknown. HOME MEDICATIONS: 1. Requip 3 mg q.h.s., 1 mg t.i.d. 2. Trintellix 1 mg p.o. daily. 3. Xarelto 10 mg p.o. q.h.s. 4. Synthroid 88 mcg a day. 5. [place] 10 1 tab q.6h p.r.n. 6. Gabapentin 600 mg p.o. t.i.d. 7. Cymbalta 60 mg q.h.s. 8. Flexeril 5 mg p.o. t.i.d. p.r.n. 9. Cetirizine 10 mg p.o. daily. 10.Fioricet 2 capsules p.o. t.i.d. p.r.n. ALLERGY: TO CEFZIL, CODEINE, SULFUR, BEXTRA, SKELAXIN. PHYSICAL EXAMINATION: VITAL SIGNS: Vital signs on presentation, temperature 98, pulse 110, respiratory 20, blood pressure 150/61, pulse ox 98% on room air. GENERAL APPEARANCE: Well built, BMI 51.2. Sitting at the edge of bed, uncomfortable. EYES: Pupils are equal. Conjunctivae normal. HEENT: External appearance of nose and ears normal. Oral cavity normal. NECK: Short, thick. JVD unable to assess. Mass not palpable. RESPIRATORY: Effort normal. LUNGS: Fair air entry. CARDIOVASCULAR: Heart sounds muffled. No edema. ABDOMEN: Soft, nontender. Liver and spleen not palpable. LYMPHATICS: No lymph nodes palpable in the neck or axillae. PSYCHIATRY: Alert and oriented x3. Mood and affect slightly anxious-appearing. NEUROLOGICAL: Patient is able to lift both legs off the ground. INVESTIGATIONS: No blood work was done. ASSESSMENT: 1. Acute on chronic low back pain of which patient has had radiofrequency ablation done by Dr. Russo on January 29 and the pain has been getting worse. 2. Chronic fibromyalgia. 3. Gastroesophageal reflux disease. 4. Morbid obesity BMI 51.2. 5. Obstructive sleep apnea does not use CPAP. 6. Hypothyroid. 7. Chronic urinary stress incontinence. 8. Peripheral neuropathy. 9. Restless legs syndrome. PLAN: Patient's home medications are resumed. The patient did get some Dilaudid in the ER. Further pain managed by Dr. Russo. Care was discussed with the patient. Questions were answered. The patient already on Xarelto that has been continued. Copy to Dr. Trammell in [place]. MMODL / IJN: [id number] /
[2018-02-14] MEDS: diphenhydrAMINE 25 MG CAP PO PRN (18:19)
[2018-02-14] MEDS ORDERED: DULoxetine HCL 60 MG CAPSULE.DR PO SCH (21:00)
[2018-02-14] MEDS ORDERED: RIVAROXABAN 10 MG TAB PO SCH (21:00)
[2018-02-14] MEDS ORDERED: GABAPENTIN 300 MG CAP PO STA (21:16)
--- NOTE | 2018-02-14 21:49 | P.CONS ---
History of Present Illness - Reason for Consult Consult date: 02/14/18 pain Requesting physician: Fabián Olmos - Chief Complaint Pain - History of Present Illness Ms Veras is a 62-year-old female well known to me in the outpatient setting. She presented to the ER on February 14 for severe pain in her low back with radiation to the bilateral lower extremities that she rates as 8-10/10 in intensity. She states that due to the severity of her pain she can only pace at home or sit and rock. As an outpatient she takes Neurontin 600 mg twice daily with 1200 mg at night. Another physician gives her Dilaudid. She is recently had lumbar radiofrequency lesioning with modest benefit and she last had epidural steroid injections in October and November 2017 with modest benefit. Currently she states that the hydrocodone doesn't help. She is also on Cymbalta for neuropathic pain and her psychiatrist wants her off of the Cymbalta due to the potential of serotonin syndrome with her trintellix. Review of Systems 10 point review of systems was performed is negative unless otherwise indicated in HPI. Past Medical History Past Medical History: Chest Pain / Angina, CVA/TIA, Deep Vein Thrombosis (DVT), Fibromyalgia, GERD/Reflux, GI Bleed, Memory Impairment, Myocardial Infarction ( [place]), Osteoarthritis (OA), Pneumonia, Pulmonary Embolus (PE), Skin Disorder, Sleep Apnea/CPAP/BIPAP, Thyroid Disorder Additional Past Medical History / Comment(s): Stroke, TIA, and Hypothyroid. CHRONIC YEAST IN skin folds. Leakage of urine. Poor nutrition, pt states was told she had an [place] based on an old EKG ( never had an heartcath), frequent problems w/vomiting, states doens't have hypertension. Has been getting iron infusions for anemia in Procedures this week. neuorpathy, back pain, ANGINA, BLEEDING ULCERS, PLEURISY, OSTEROPEROSIS, MYFACIAL PAIN SYNDROME, SLEEP APNEA ( DOES NOT USE CPAP). scoliosis Last Myocardial Infarction Date:: 2002 History of Any Multi-Drug Resistant Organisms: None Reported Past Surgical History: Bariatric Surgery, Hernia Repair, Hysterectomy, Orthopedic Surgery, Tubal Ligation Additional Past Surgical History / Comment(s): right rotator cuff repair AND REVISION, VENTRAL HERNIA REPAIR, HIATAL HERNIA REPAIR, LT KNEE ARTHROSCOPY, RECTOCELE, PERINEALPLASTY, GASTRIC BYPASS, Past Anesthesia/Blood Transfusion Reactions: Motion Sickness Smoking Status: Never smoker - Past Family History Sister(s) Family Medical History: Cancer Medications and Allergies Home Medications Medication Instructions Recorded Confirmed Type Levothyroxine Sodium [Synthroid] 88 mcg PO DAILY 08/09/13 02/14/18 History Cyclobenzaprine [Flexeril] 5 mg PO TID PRN 11/04/15 02/14/18 History Vortioxetine Hydrobromide 10 mg PO DAILY 11/04/15 02/14/18 History [Trintellix] Butalb/Acetaminophen/Caffeine 2 cap PO TID PRN 08/09/17 02/14/18 History [Fioricet 50-300-40 mg Capsule] DULoxetine HCL [Cymbalta] 60 mg PO HS 08/23/17 02/14/18 History rOPINIRole HCL [Requip] 1 mg PO TID 11/09/17 02/14/18 History rOPINIRole HCL [Requip] 3 mg PO HS 11/09/17 02/14/18 History Cetirizine HCl 10 mg PO DAILY 02/14/18 02/14/18 History Gabapentin 600 mg PO TID 02/14/18 02/14/18 History Hydrocodone/Acetaminophen [[place] 1 tab PO Q6H PRN 02/14/18 02/14/18 History 10-325] Rivaroxaban [Xarelto] 10 mg PO HS 02/14/18 02/14/18 History Allergies Allergy/AdvReac Type Severity Reaction Status Date / Time cefprozil [From Cefzil] Allergy Unknown Verified 02/14/18 03:54 codeine Allergy Unknown Verified 02/14/18 03:54 Sulfa (Sulfonamide Allergy Rash/Hives Verified 02/14/18 03:54 Antibiotics) valdecoxib [From Bextra] Allergy Unknown Verified 02/14/18 09:34 metaxalone [From Skelaxin] AdvReac Nausea & Verified 02/14/18 03:54 Vomiting Physical Exam Osteopathic Statement: *. No significant issues noted on an osteopathic structural exam other than those noted in the History and Physical/Consult. Vitals: Vital Signs Temp Pulse Pulse Resp BP BP Pulse Ox 02/14/18 15:54 97.7 F 83 18 138/83 100 02/14/18 07:20 97.7 F 93 18 123/66 98 02/14/18 04:00 97.7 F 98 20 166/78 98 02/14/18 02:27 105 H 18 122/50 100 02/13/18 23:33 98.0 F 110 H 20 150/61 98 Intake and Output 02/14/18 02/14/18 02/14/18 06:59 14:59 22:59 Intake Total 400 420 Balance 400 420 Intake: Oral 300 420 Other 100 Other: # Voids 1 Weight 127 kg Gen.: Patient alert and oriented, demonstrating pain behavior HEENT: Normocephalic atraumatic extraocular muscles intact Respiratory: No accessory muscle use was noted breathing was nonlabored Cardiovascular: Regular rate and rhythm, 1+ peripheral edema Abdomen: Soft nontender nondistended. Musculoskeletal: Hip flexion 4/5 bilaterally, knee extension, dorsiflexion, ankle inversion and eversion 5 out of 5 bilaterally, EHL 4+/5 right 4/5 left Neurologic: Patellar and Achilles reflexes 0/4 bilaterally, no ankle clonus Results Results: Computed tomography scan report of the lumbar spine was reviewed Assessment and Plan Assessment: Acute on chronic back pain (1) Chronic pain Current Visit: Yes Status: Acute Code(s): G89.29 - OTHER CHRONIC PAIN SNOMED Code(s): 35822635 (2) Lumbar disc disease with radiculopathy Current Visit: Yes Status: Acute Code(s): M51.16 - INTERVERTEBRAL DISC DISORDERS W RADICULOPATHY, LUMBAR REGION SNOMED Code(s): 155453365 (3) Lumbar spondylosis Current Visit: Yes Status: Acute Code(s): M47.816 - SPONDYLOSIS W/O MYELOPATHY OR RADICULOPATHY, LUMBAR REGION SNOMED Code(s): 915307486 Plan: Discussed at length with patient that she has a chronic pain problem and that she needs to stop presenting to the ER for this problem. Discussed with the patient that her pathology is known she has had recent MRI imaging and her back pain is not going to cause her paralysis or . Discussed with the patient that our plan is to increase her Neurontin for now change [place] to Percocet and that she is to be discharged home tomorrow and will follow-up in the office on Monday. The plan will be for her to have a psychology evaluation and we will likely pursue spinal cord stimulation to better control her pain as she is not a surgical candidate. We also discussed that she needs to work on weight loss and she states she is already had gastric surgery but Lyrica caused her to gain weight. I would like her to have a nutrition consult before she is discharged. Case has been discussed with Dr. Olmos. Time with Patient: Greater than 30
[2018-02-14] MEDS: oxyCODONE-APAP 10-325MG 1 EACH TAB PO PRN (23:33)
[2018-02-15 00:20] VITALS: TEMP 97.5
[2018-02-15] MEDS: DIAZEPAM 5 MG/ML (10 ML MDV) IVP PRN ×2 (03:54→08:29)
[2018-02-15] MEDS: diphenhydrAMINE 25 MG CAP PO PRN (05:19)
[2018-02-15] MEDS: oxyCODONE-APAP 10-325MG 1 EACH TAB PO PRN (05:19)
[2018-02-15] MEDS: LEVOTHYROXINE 88 MCG TAB PO SCH (05:20)
[2018-02-15 08:18] VITALS: BP 117/75; PULSE 83
[2018-02-15] MEDS ORDERED: LORATADINE 10 MG TAB PO SCH (09:00)
[2018-02-15] MEDS: GABAPENTIN 400 MG CAP PO SCH ×2 (09:11→09:12)
[2018-02-15] MEDS: VORTIOXETINE HYDROBROMIDE 10 MG TABLET PO SCH (09:12)
--- NOTE | 2018-02-17 03:33 | DS ---
DISCHARGE SUMMARY DATE OF ADMISSION: 02/14/2018 DATE OF DISCHARGE: 02/15/2018. FINAL DIAGNOSES: 1. Acute on chronic lumbar pain with radiculopathy. 2. Chronic fibromyalgia. 3. Gastroesophageal reflux disease. 4. Morbid obesity BMI 51.2. 5. Obstructive sleep apnea, does not use CPAP. 6. Hypothyroid. 7. Chronic urinary stress incontinence. 8. Peripheral neuropathy idiopathic. 9. Restless legs syndrome. HOSPITAL COURSE: This patient with chronic low back pain. Follows with Dr. Russo. Had a radiofrequency ablation on January 29. The patient is still having significant pain. The patient is seen by Dr. Russo. He adjusted the patient Neurontin. The patient is to follow with him. No new neuro deficits. EXAMINATION: VITAL SIGNS: Temp 97.5. Pulse 83, blood pressure 117/75, pulse ox 95% on room air. The patient is lying in bed, having breakfast. DISCHARGE MEDICATIONS: 1. Synthroid 88 mcg a day. 2. Flexeril 5 mg 1 tablet p.o. t.i.d. p.r.n. 3. Trintellix 10 mg p.o. daily. 4. Fioricet 2 capsules p.o. t.i.d. p.r.n. 5. Cymbalta 60 mg q.h.s. 6. Requip 1 mg p.o. t.i.d. 7. Requip 3 mg p.o. q.h.s. 8. Cetirizine 10 mg p.o. daily. 9. Xarelto 10 mg p.o. q.h.s. 10.Neurontin 800 mg p.o. t.i.d. new dose. 11.Percocet 10 one tablet p.o. q.6 p.r.n. This was a substitute for patient's [place]. FOLLOWUP: Follow up with Dr. Trammell in 1 week, follow Dr. Marcio Russo on February 16, 2018. Copy to Dr. Russo. JEREMIE / MARIA TERESAN: [id number] /
== END 2018-02-15 14:30 | disposition home or self-care (01) ==
LOC: EC 22:48 → 1SOBS 02-14 02:35
PROVIDERS: ADMIT Hospitalist; ATTEND Hospitalist
DX: M51.16 Intervertebral disc disorders with radiculopathy, lumbar region (principal); M79.7 Fibromyalgia; K21.9 Gastro-esophageal reflux disease without esophagitis; E66.01 Morbid (severe) obesity due to excess calories; Z68.43 Body mass index [BMI] 50.0-59.9, adult; G47.33 Obstructive sleep apnea (adult) (pediatric); E03.9 Hypothyroidism, unspecified; N39.3 Stress incontinence (female) (male); G60.9 Hereditary and idiopathic neuropathy, unspecified; G25.81 Restless legs syndrome; M47.26 Other spondylosis with radiculopathy, lumbar region; I25.2 Old myocardial infarction; R41.3 Other amnesia; M19.90 Unspecified osteoarthritis, unspecified site; F41.9 Anxiety disorder, unspecified; F32.9 Major depressive disorder, single episode, unspecified; M81.0 Age-related osteoporosis without current pathological fracture; Z79.890 Hormone replacement therapy; Z79.01 Long term (current) use of anticoagulants; Z79.899 Other long term (current) drug therapy; Z79.1 Long term (current) use of non-steroidal anti-inflammatories (NSAID); Z88.1 Allergy status to other antibiotic agents; Z88.5 Allergy status to narcotic agent; Z88.2 Allergy status to sulfonamides; Z88.8 Allergy status to other drugs, medicaments and biological substances; Z86.73 Personal history of transient ischemic attack (TIA), and cerebral infarction without residual deficits; Z87.19 Personal history of other diseases of the digestive system; Z86.711 Personal history of pulmonary embolism; Z87.01 Personal history of pneumonia (recurrent); Z98.84 Bariatric surgery status; Z80.9 Family history of malignant neoplasm, unspecified; M47.16 Other spondylosis with myelopathy, lumbar region; M41.9 Scoliosis, unspecified
CPT/HCPCS: 96375 ×2; 96376 ×2; 96374; 99285; 72131; G0378 ×2; J2270; J1200; J1100; J3360 ×3; J1885; J1170

== ENCOUNTER → 2018-05-04 | Outpatient (CLI) | payer MEDICARE, BC ==
--- NOTE | 2018-05-04 10:47 | US ---
EXAMINATION TYPE: US venous doppler duplex LE LT DATE OF EXAM: 05/04/2018 10:36 AM COMPARISON: NONE CLINICAL HISTORY: M79.662,R22.42 PAIN AND SWELLING LT LOWER LIMB. Prominent varicose posterior left k nee. Hx of dvt in right posterior knee. On blood thinners. SIDE PERFORMED: Left TECHNIQUE: The lower extremity deep venous system is examined utilizing real time linear array sonog trang with graded compression, doppler sonography and color-flow sonography. VESSELS IMAGED: External Iliac Vein (EIV) Common Femoral Vein Deep Femoral Vein Greater Saphenous Vein * Femoral Vein Popliteal Vein Small Saphenous Vein * Proximal Calf Veins (* superficial vessels) Limited exam due to patient body habitus and unable to stay still Left Leg: Negative for acute DVT IMPRESSION: No evidence for DVT
== END | disposition home or self-care (01) ==
LOC: RADUSWWP 10:04
PROVIDERS: ATTEND Family Medicine
DX: M79.662 Pain in left lower leg (principal); R22.42 Localized swelling, mass and lump, left lower limb

== ENCOUNTER → 2018-08-17 | Outpatient (CLI) | payer MEDICARE, BC ==
[2018-08-17 11:34] LABS: HCT 36.2 % (34.0-46.0); HGB 11.5 gm/dL (11.4-16.0); INR 0.9 (<1.2); MCH 28.1 pg (25.0-35.0); MCHC 31.6 g/dL (31.0-37.0); MCV 88.7 fL (80.0-100.0); Mean Platelet Volume 6.7; Platelet Count 418 k/uL (150-450); Prothrombin Time 9.4 sec (9.0-12.0); RBC 4.08 m/uL (3.80-5.40); RDW 15.9 % (11.5-15.5); WBC 7.1 k/uL (3.8-10.6)
[2018-08-17 16:04] LABS: Albumin 3.7 g/dL (3.80-4.90); Albumin/Globulin Ratio 1.76 (1.60-3.17); Anion Gap 5.3 mmol/L (4.00-12.00); Calcium 8.8 mg/dL (8.7-10.3); Carbon Dioxide 31.7 mmol/L (21.6-31.8); Globulin 2.1 g/dL (1.6-3.3); Potassium 4.1 mmol/L (3.5-5.5); Total Bilirubin 0.3 mg/dL (0.3-1.2); Total Protein 5.8 g/dL (6.2-8.2)
== END | disposition home or self-care (01) ==
LOC: LABWHC1 10:24
PROVIDERS: ATTEND Nurse Practitioner Family
DX: Z01.812 Encounter for preprocedural laboratory examination (principal); Z51.81 Encounter for therapeutic drug level monitoring
CPT/HCPCS: 36415; 80053; 85027; 85610; 86850; 86900; 86901; 87070

== ENCOUNTER 2018-10-14 03:04 | Emergency (ER) | payer MEDICARE, BC ==
[2018-10-14 03:16] VITALS: RESP 18; TEMP 97.9
--- NOTE | 2018-10-14 03:29 | ED ---
General Adult HPI - General Chief complaint: Extremity Problem,Nontraumatic Stated complaint: Feet Swelling Time Seen by Provider: 10/14/18 03:22 Source: patient Mode of arrival: wheelchair Limitations: no limitations - History of Present Illness Initial comments: Marlin is a pleasant 63 yo female with stents of past medical history presents the emergency department today for evaluation of bilateral lower extremity swelling. Patient reports that over the past couple A she's noted that both her feet seemed to be very puffy. She reports that she has to wear her daughter sandals because her shoes are too tight. Feet feel tight and aren't tender, she has noticed some redness which is more pronounced in the right extremity than the left however both appear a little bit red. Patient denies being on her feet more than usual though her significant other bedside does report that she had a doctor's appointment was walking her most the day yesterday. She denies any associated chest pain, shortness breath, palpitations, she denies any nausea, vomiting, fevers or chills. - Related Data Home Medications Medication Instructions Recorded Confirmed Levothyroxine Sodium [Synthroid] 88 mcg PO DAILY 08/09/13 05/15/18 Cyclobenzaprine [Flexeril] 5 mg PO TID PRN 11/04/15 05/15/18 Vortioxetine Hydrobromide 10 mg PO DAILY 11/04/15 05/15/18 [Trintellix] Butalb/Acetaminophen/Caffeine 2 cap PO TID PRN 08/09/17 05/15/18 [Fioricet 50-300-40 mg Capsule] DULoxetine HCL [Cymbalta] 60 mg PO HS 08/23/17 05/15/18 rOPINIRole HCL [Requip] 1 mg PO TID 11/09/17 05/15/18 rOPINIRole HCL [Requip] 3 mg PO HS 11/09/17 05/15/18 Cetirizine HCl 10 mg PO DAILY 02/14/18 05/15/18 Rivaroxaban [Xarelto] 10 mg PO HS 02/14/18 05/15/18 Previous Rx's Medication Instructions Recorded Gabapentin [Neurontin] 800 mg PO TID cap 02/15/18 oxyCODONE-APAP 10-325MG [Percocet 1 each PO Q6H PRN tab 02/15/18 10-325 mg] Clindamycin [Cleocin] 450 mg PO TID #21 capsule 10/14/18 Allergies Allergy/AdvReac Type Severity Reaction Status Date / Time cefprozil [From Cefzil] Allergy Unknown Verified 05/15/18 10:16 codeine Allergy Unknown Verified 05/15/18 10:16 Sulfa (Sulfonamide Allergy Rash/Hives Verified 05/15/18 10:16 Antibiotics) valdecoxib [From Bextra] Allergy Unknown Verified 05/15/18 10:16 metaxalone [From Skelaxin] AdvReac Nausea & Verified 05/15/18 10:16 Vomiting Review of Systems ROS Statement: Those systems with pertinent positive or pertinent negative responses have been documented in the HPI. ROS Other: All systems not noted in ROS Statement are negative. Past Medical History Past Medical History: Chest Pain / Angina, CVA/TIA, Deep Vein Thrombosis (DVT), Fibromyalgia, GERD/Reflux, GI Bleed, Memory Impairment, Myocardial Infarction ([place]), Osteoarthritis (OA), Pneumonia, Pulmonary Embolus (PE), Skin Disorder, Sleep Apnea/CPAP/BIPAP, Thyroid Disorder Additional Past Medical History / Comment(s): Stroke, TIA, and Hypothyroid. CHRONIC YEAST IN skin folds. Leakage of urine. Poor nutrition, pt states was told she had an [place] based on an old EKG ( never had an heartcath), frequent problems w/vomiting, states doens't have hypertension. Has been getting iron infusions for anemia in Procedures this week. neuorpathy, back pain, ANGINA, BLEEDING ULCERS, PLEURISY, OSTEROPEROSIS, MYFACIAL PAIN SYNDROME, SLEEP APNEA (DOES NOT USE CPAP). scoliosis Last Myocardial Infarction Date:: 2002 History of Any Multi-Drug Resistant Organisms: None Reported Past Surgical History: Bariatric Surgery, Hernia Repair, Hysterectomy, Orthopedic Surgery, Tubal Ligation Additional Past Surgical History / Comment(s): right rotator cuff repair AND REVISION, VENTRAL HERNIA REPAIR, HIATAL HERNIA REPAIR, LT KNEE ARTHROSCOPY, RECTOCELE, PERINEALPLASTY, GASTRIC BYPASS, Past Anesthesia/Blood Transfusion Reactions: Motion Sickness Past Psychological History: Anxiety, Depression Smoking Status: Never smoker Past Alcohol Use History: Rare Past Drug Use History: None Reported - Past Family History Sister(s) Family Medical History: Cancer General Exam - General Exam Comments Initial Comments: Physical Exam GENERAL: Patient is well-developed and well-nourished. Patient is nontoxic and well- hydrated and is in no distress. HENT: Normocephalic, Atraumatic. EYES: PERRL, EOMI PULMONARY: Unlabored respirations. No audible rales rhonchi or wheezing was noted. CARDIOVASCULAR: There is a regular rate and rhythm without any murmurs gallops or rubs. Nonpitting edema bilateral feet to the ankle ABDOMEN: Soft and nontender with normal bowel sounds. SKIN: Skin is clear with no lesions or rashes and otherwise unremarkable. Nonhealing wound on the back secondary to recent neurostimulator implant, no signs of infection Bilateral lower extremities are mildly erythematous there is no induration or significant tenderness : Deferred NEUROLOGIC: Patient is alert and oriented x3. Moving all extremities spontaneously MUSCULOSKELETAL: Normal extremities with adequate strength and full range of motion. No lower extremity swelling or edema. No calf tenderness. PSYCHIATRIC: Normal psychiatric evaluation. Limitations: no limitations Course Vital Signs 10/14/18 10/14/18 03:12 05:00 Temperature 97.9 F Pulse Rate 72 76 Respiratory 18 18 Rate Blood Pressure 108/67 109/63 O2 Sat by Pulse 98 98 Oximetry EKG Findings - EKG Comments: EKG Findings:: EKG was obtained at 6:02 AM, rate of 71 rhythm is sinus with first-degree AV block, TN to 20, QRS 84, QTC is [address] elevations or depressions or evidence of acute ischemia or infarction. Medical Decision Making - Medical Decision Making Patient was seen and evaluated, history is obtained from the patient and at bedside History and physical exam reveals a bilateral lower extremity edema with very early pinkness but no true induration tenderness or signs of cellulitis Labs and imaging were obtained, there is no signs of heart failure next line patient was reevaluated and labs were discussed with the patient. Patient r eports that since sitting in the hospital bed with her feet elevated the swelling has gone down significantly. She was given Lasix for fluid retention. Advised patient that I suspect that her swelling in her feet was due to being on her feet more often and in the heat. There are very low suspicion for cellulitis however given that she does have some redness I will prescribe her antibiotics, I advised her not to have these filled unless the redness gets more pronounced or more tender. Patient was able to express understanding of this plan. All questions pertaining care were answered return parameters were discussed patient was discharged home in stable condition. I followed up with the patient the next day after discharge and she did report significant improvement in the edema in her feet after getting IV Lasix. - Lab Data Result diagrams: 10/14/18 04:46 10/14/18 04:46 Lab Results 10/14/18 10/14/18 10/14/18 Range/Units 04:46 04:46 04:46 WBC 7.2 (3.8-10.6) k/uL RBC 3.70 L (3.80-5.40) m/uL Hgb 10.6 L (11.4-16.0) gm/dL Hct 32.6 L (34.0-46.0) % MCV 88.1 (80.0-100.0) fL MCH 28.8 (25.0-35.0) pg MCHC 32.7 (31.0-37.0) g/dL RDW 14.0 (11.5-15.5) % Plt Count 409 (150-450) k/uL Neutrophils % 66 % Lymphocytes % 21 % Monocytes % 6 % Eosinophils % 4 % Basophils % 1 % Neutrophils # 4.8 (1.3-7.7) k/uL Lymphocytes # 1.5 (1.0-4.8) k/uL Monocytes # 0.4 (0-1.0) k/uL Eosinophils # 0.3 (0-0.7) k/uL Basophils # 0.1 (0-0.2) k/uL PT (9.0-12.0) sec INR (<1.2) APTT (22.0-30.0) sec Sodium 133 L (137-145) mmol/L Potassium 3.6 (3.5-5.1) mmol/L Chloride 91 L (98-107) mmol/L Carbon Dioxide 31 H (22-30) mmol/L Anion Gap 11 mmol/L BUN 35 H (7-17) mg/dL Creatinine 1.02 (0.52-1.04) mg/dL Est GFR (CKD-EPI)AfAm 68 (>60 ml/min/1.73 sqM) Est GFR (CKD-EPI)NonAf 59 (>60 ml/min/1.73 sqM) Glucose 89 (74-99) mg/dL Calcium 8.9 (8.4-10.2) mg/dL Magnesium 2.5 H (1.6-2.3) mg/dL Total Bilirubin 0.6 (0.2-1.3) mg/dL AST 25 (14-36) U/L ALT 18 (9-52) U/L Alkaline Phosphatase 103 (38-126) U/L NT-Pro-B Natriuret Pep 610 pg/mL Total Protein 6.4 (6.3-8.2) g/dL Albumin 3.7 (3.5-5.0) g/dL 10/14/18 Range/Units 06:02 WBC (3.8-10.6) k/uL RBC (3.80-5.40) m/uL Hgb (11.4-16.0) gm/dL Hct (34.0-46.0) % MCV (80.0-100.0) fL MCH (25.0-35.0) pg MCHC (31.0-37.0) g/dL RDW (11.5-15.5) % Plt Count (150-450) k/uL Neutrophils % % Lymphocytes % % Monocytes % % Eosinophils % % Basophils % % Neutrophils # (1.3-7.7) k/uL Lymphocytes # (1.0-4.8) k/uL Monocytes # (0-1.0) k/uL Eosinophils # (0-0.7) k/uL Basophils # (0-0.2) k/uL PT 9.6 (9.0-12.0) sec INR 0.9 (<1.2) APTT 24.3 (22.0-30.0) sec Sodium (137-145) mmol/L Potassium (3.5-5.1) mmol/L Chloride (98-107) mmol/L Carbon Dioxide (22-30) mmol/L Anion Gap mmol/L BUN (7-17) mg/dL Creatinine (0.52-1.04) mg/dL Est GFR (CKD-EPI)AfAm (>60 ml/min/1.73 sqM) Est GFR (CKD-EPI)NonAf (>60 ml/min/1.73 sqM) Glucose (74-99) mg/dL Calcium (8.4-10.2) mg/dL Magnesium (1.6-2.3) mg/dL Total Bilirubin (0.2-1.3) mg/dL AST (14-36) U/L ALT (9-52) U/L Alkaline Phosphatase (38-126) U/L NT-Pro-B Natriuret Pep pg/mL Total Protein (6.3-8.2) g/dL Albumin (3.5-5.0) g/dL Disposition Clinical Impression: Venous stasis Disposition: HOME SELF-CARE Condition: Stable Instructions (If sedation given, give patient instructions): Leg Edema (ED) Prescriptions: Clindamycin [Cleocin] 450 mg PO TID #21 capsule Is patient prescribed a controlled substance at d/c from ED?: No Referrals: Char Nunez MD [Primary Care Provider] - 1-2 days
[2018-10-14] MEDS ORDERED: FUROSEMIDE 10 MG/ML 4 ML VIAL IV STA (04:03)
[2018-10-14 04:59] LABS: Basophils # (A) 0.1 k/uL (0-0.2); Basophils % (A) 1 %; Eosinophils # (A) 0.3 k/uL (0-0.7); Eosinophils % (A) 4 %; HCT 32.6 % (34.0-46.0); HGB 10.6 gm/dL (11.4-16.0); Lymphocytes # (A) 1.5 k/uL (1.0-4.8); Lymphocytes % (A) 21 %; MCH 28.8 pg (25.0-35.0); MCHC 32.7 g/dL (31.0-37.0); MCV 88.1 fL (80.0-100.0); Mean Platelet Volume 6.9; Monocytes # (A) 0.4 k/uL (0-1.0); Monocytes % (A) 6 %; Neutrophils # (A) 4.8 k/uL (1.3-7.7); Neutrophils % (A) 66 %; Platelet Count 409 k/uL (150-450); WBC 7.2 k/uL (3.8-10.6)
[2018-10-14] MEDS ORDERED: MORPHINE SULFATE 4 MG/ML SYRINGE IVP STA (04:59)
[2018-10-14] MEDS ORDERED: VANCOMYCIN IV PER PHARMACY 1 EACH MISC MISCELLANE PRN (04:59)
[2018-10-14 05:18] VITALS: BP 109/63; PULSE 76
[2018-10-14 05:21] LABS: Albumin 3.7 g/dL (3.5-5.0); Calcium 8.9 mg/dL (8.4-10.2); Magnesium 2.5 mg/dL (1.6-2.3); Potassium 3.6 mmol/L (3.5-5.1); Total Bilirubin 0.6 mg/dL (0.2-1.3); Total Protein 6.4 g/dL (6.3-8.2)
[2018-10-14] MEDS ORDERED: VANCOMYCIN 1,750 MG in SODIUM CHLORIDE 0.9% 500 ML 500 ML IVPB ONE (06:00)
[2018-10-14 06:52] LABS: INR 0.9 (<1.2); Partial Thromboplastin Time 24.3 sec (22.0-30.0); Prothrombin Time 9.6 sec (9.0-12.0)
== END 2018-10-14 06:52 | disposition home or self-care (01) ==
LOC: EC 03:04
DX: I87.8 Other specified disorders of veins (principal); I44.0 Atrioventricular block, first degree; I25.2 Old myocardial infarction; G47.30 Sleep apnea, unspecified; E03.9 Hypothyroidism, unspecified; F41.9 Anxiety disorder, unspecified; F32.9 Major depressive disorder, single episode, unspecified; Z79.01 Long term (current) use of anticoagulants; Z79.890 Hormone replacement therapy; Z79.899 Other long term (current) drug therapy; Z88.1 Allergy status to other antibiotic agents; Z88.2 Allergy status to sulfonamides; Z88.5 Allergy status to narcotic agent; Z88.6 Allergy status to analgesic agent; Z86.73 Personal history of transient ischemic attack (TIA), and cerebral infarction without residual deficits; Z86.718 Personal history of other venous thrombosis and embolism; Z98.84 Bariatric surgery status
CPT/HCPCS: 36415; 83880; 80053; 83735; 85025; 85610; 85730; 99283; 96374; 96375; J2270; J1940

== ENCOUNTER → 2018-11-02 | Outpatient (CLI) | payer MEDICARE, BC ==
--- NOTE | 2018-11-03 13:55 | ECHOF ---
Referral Reason:R60.9 LE Edema MEASUREMENTS -------- HEIGHT: 157.5 cm WEIGHT: 127.5 kg BP: IVSd: 1.0 cm (0.6 - 1.1) LVIDd: 4.8 cm (3.9 - 5.3) LVPWd: 1.1 cm (0.6 - 1.1) IVSs: 1.0 cm LVIDs: 3.3 cm LVPWs: 1.5 cm LA Diam: 4.6 cm (2.7 - 3.8) RVIDd: 3.6 cm (< 3.3) LAESV Index (A-L): 33.05 ml/m Ao Diam: 2.9 cm (2.0 - 3.7) LA Diam: 3.9 cm (2.7 - 3.8) AV Cusp: 2.1 cm (1.5 - 2.6) EPSS: 0.3 cm MV E Rubin: 0.72 m/s MV DecT: 141 ms MV A Rubin: 0.80 m/s MV E/A Ratio: 0.90 RAP: 5.00 mmHg RVSP: 32.12 mmHg MV EF SLOPE: 73.69 mm/s (70 - 150) MV EXCURSION: 18.07 mm (> 18.000) FINDINGS -------- Sinus rhythm. Morbid Obesity LV size, wall thickness and systolic function are normal, with an EF greater than 55%. The left brianna tricular size is normal. The right ventricle is normal in size. The left atrium is moderately dilated. LA is moderately dilated 34-39 ml/m2 The right atrial size is normal. The aortic valve is trileaflet, and appears structurally normal. No aortic stenosis or regurgitation. Mild mitral regurgitation is present. Mild tricuspid regurgitation present. There is no evidence of pulmonary hypertension. The right v entricular systolic pressure, as measured by Doppler, is 32.12mmHg. The pulmonic valve was not well visualized. The aortic root size is normal. There is no pericardial effusion. CONCLUSIONS -------- 1. Morbid Obesity 2. LV size, wall thickness and systolic function are normal, with an EF greater than 55%. 3. The left ventricular size is normal. 4. The right ventricle is normal in size. 5. The left atrium is moderately dilated. 6. LA is moderately dilated 34-39 ml/m2 7. The right atrial size is normal. 8. The aortic valve is trileaflet, and appears structurally normal. No aortic stenosis or regurgitati on. 9. Mild mitral regurgitation is present. 10. Mild tricuspid regurgitation present. 11. There is no evidence of pulmonary hypertension. 12. The right ventricular systolic pressure, as measured by Doppler, is 32.12mmHg. 13. The pulmonic valve was not well visualized. 14. The aortic root size is normal. 15. There is no pericardial effusion. EDUCATION ADMINISTRATIVE ASSISTANT: Mary Sánchez RDCS
== END | disposition home or self-care (01) ==
LOC: RADECHMAIN 15:43
PROVIDERS: ATTEND Family Medicine
DX: I08.1 Rheumatic disorders of both mitral and tricuspid valves (principal); E66.01 Morbid (severe) obesity due to excess calories
CPT/HCPCS: 93306

== ENCOUNTER 2018-11-24 18:12 | Emergency (ER) | payer MEDICARE, BC ==
[2018-11-24 18:17] VITALS: RESP 18
[2018-11-24] MEDS ORDERED: SODIUM CHLORIDE 0.9% 500 ML 500 ML IV STA (18:56)
[2018-11-24 19:14] LABS: Basophils % (A) 0 %; Eosinophils # (A) 0.2 k/uL (0-0.7); Eosinophils % (A) 2 %; HCT 31.4 % (34.0-46.0); HGB 10.9 gm/dL (11.4-16.0); Lymphocytes # (A) 1.4 k/uL (1.0-4.8); Lymphocytes % (A) 17 %; MCH 29.7 pg (25.0-35.0); MCHC 34.5 g/dL (31.0-37.0); MCV 85.9 fL (80.0-100.0); Mean Platelet Volume 6.6; Monocytes # (A) 0.6 k/uL (0-1.0); Monocytes % (A) 7 %; Neutrophils # (A) 6.2 k/uL (1.3-7.7); Neutrophils % (A) 73 %; Platelet Count 451 k/uL (150-450); RBC 3.66 m/uL (3.80-5.40); RDW 14.2 % (11.5-15.5); WBC 8.6 k/uL (3.8-10.6)
[2018-11-24 19:21] LABS: INR 0.9 (<1.2); Partial Thromboplastin Time 27.7 sec (22.0-30.0); Prothrombin Time 9.9 sec (9.0-12.0)
[2018-11-24 19:31] LABS: ALT 21 U/L (9-52); AST 32 U/L (14-36); African American GFR (CKD) >90 (>60 ml/min/1.73 sqM); Alkaline Phosphatase 123 U/L (38-126); Blood Urea Nitrogen 33 mg/dL (7-17); Calcium 9.2 mg/dL (8.4-10.2); Chloride 82 mmol/L (98-107); Glucose 99 mg/dL (74-99); Magnesium 2.3 mg/dL (1.6-2.3); Non-African American GFR(CKD) 87 (>60 ml/min/1.73 sqM); Potassium 3.2 mmol/L (3.5-5.1); Sodium 132 mmol/L (137-145); Total Bilirubin 0.5 mg/dL (0.2-1.3); Total Protein 6.9 g/dL (6.3-8.2)
--- NOTE | 2018-11-24 19:31 | CT ---
EXAMINATION TYPE: CT brain wo con DATE OF EXAM: 11/24/2018 COMPARISON: HISTORY: Pt sodium/potassium levels off, pt fell 2 weeks ago, bruising to LT eye. Pt states she didn' t feel "right" before the fall, and still feels the same CT DLP: 1099.4 mGycm Automated exposure control for dose reduction was used. FINDINGS: Ventricles and sulci appear normal. There is no mass effect nor midline shift. There is no sign of in tracranial hemorrhage. Calvarium is intact. IMPRESSION: NEGATIVE CT SCAN OF THE BRAIN. NO CHANGE.
--- NOTE | 2018-11-24 19:32 | XR ---
EXAMINATION TYPE: XR chest 2V DATE OF EXAM: 11/24/2018 COMPARISON: 11/09/2017 HISTORY: Weakness TECHNIQUE: Frontal and lateral views of the chest are obtained. FINDINGS: There is no heart failure nor confluent pneumonic infiltrate. Costophrenic angles are alek r. There is neural stimulator in the mid thoracic spine. Bony thorax is intact. Heart size is normal. IMPRESSION: No active cardiopulmonary disease. No change.
[2018-11-24 19:37] LABS: Anion Gap 12 mmol/L; Carbon Dioxide 38 mmol/L (22-30)
--- NOTE | 2018-11-24 19:45 | ED ---
General Adult HPI - General Chief complaint: Recheck/Abnormal Lab/Rx Stated complaint: Abnormal Labs Time Seen by Provider: 11/24/18 18:20 Source: patient Mode of arrival: wheelchair Limitations: no limitations - History of Present Illness Initial comments: The patient is a 63-year-old female presents emergency Department with abnormal laboratory studies. She reports that she saw her primary care physician on and had lab work done. She was called by the office today and was reported the patient had a low sodium and low potassium level. She does report that she was placed on Lasix approximately one month ago. She does have potassium to take with her Lasix and states that she hasn't missed any doses. She does report an increase in urination. She was placed on Lasix because of lower extremity swelling which has markedly improved. She reports vertiginous symptoms. She did sustain a fall 2 weeks ago. She fell and hit her head. She does report a continued headache. Denies any visual changes. No unilateral numbness or weakness. She denies any chest pain or shortness of breath. No neck pain or stiffness. No fevers or chills. Denies a cough. No abdominal pain. Denies any diarrhea. No other medication changes. Because of her abnormal laboratory studies she was told to going to the emergency room for evaluation. There are no other alleviating, precipitating or modifying factors - Related Data Home Medications Medication Instructions Recorded Confirmed Levothyroxine Sodium [Synthroid] 88 mcg PO DAILY 08/09/13 11/24/18 Cyclobenzaprine [Flexeril] 5 mg PO TID PRN 11/04/15 11/24/18 Vortioxetine Hydrobromide 10 mg PO DAILY 11/04/15 11/24/18 [Trintellix] Butalb/Acetaminophen/Caffeine 2 cap PO TID PRN 08/09/17 11/24/18 [Fioricet 50-300-40 mg Capsule] rOPINIRole HCL [Requip] 1 mg PO DAILY 11/09/17 11/24/18 rOPINIRole HCL [Requip] 3 mg PO HS 11/09/17 11/24/18 Rivaroxaban [Xarelto] 10 mg PO DAILY 02/14/18 11/24/18 Amitriptyline HCl [Elavil] 50 mg PO HS 11/24/18 11/24/18 DULoxetine HCL [Cymbalta] 30 mg PO DAILY 11/24/18 11/24/18 DULoxetine HCL [Cymbalta] 60 mg PO HS 11/24/18 11/24/18 Furosemide [Lasix] 20 mg PO BID 11/24/18 11/24/18 Gabapentin 600 mg PO TID 11/24/18 11/24/18 HYDROcodone/APAP 10-325MG [[place] 1 tab PO BID 11/24/18 11/24/18 10-325] Metolazone [Zaroxolyn] 2.5 mg PO DAILY 11/24/18 11/24/18 Potassium Chloride ER [K-Dur 10] 10 meq PO DAILY 11/24/18 11/24/18 fentaNYL 25MCG/HR PATCH [Duragesic 1 patch TRANSDERM Q72H 11/24/18 11/24/18 25MCG/HR] rOPINIRole HCL [Requip] 3 mg PO DAILY@1200 11/24/18 11/24/18 Previous Rx's Medication Instructions Recorded Fluconazole [Diflucan] 150 mg PO ONCE #2 tab 11/24/18 Nitrofurantoin Monohyd/M-Cryst 100 mg PO Q12HR #10 cap 11/24/18 [Macrobid] Allergies Allergy/AdvReac Type Severity Reaction Status Date / Time cefprozil [From Cefzil] Allergy Unknown Verified 11/24/18 19:53 codeine Allergy Unknown Verified 11/24/18 19:53 Sulfa (Sulfonamide Allergy Rash/Hives Verified 11/24/18 19:53 Antibiotics) valdecoxib [From Bextra] Allergy Unknown Verified 11/24/18 19:53 metaxalone [From Skelaxin] AdvReac Nausea & Verified 11/24/18 19:53 Vomiting Review of Systems ROS Statement: Those systems with pertinent positive or pertinent negative responses have been documented in the HPI. ROS Other: All systems not noted in ROS Statement are negative. Past Medical History Past Medical History: Chest Pain / Angina, CVA/TIA, Deep Vein Thrombosis (DVT), Fibromyalgia, GERD/Reflux, GI Bleed, Memory Impairment, Myocardial Infarction ([place]), Osteoarthritis (OA), Pneumonia, Pulmonary Embolus (PE), Skin Disorder, Sleep Apnea/CPAP/BIPAP, Thyroid Disorder Additional Past Medical History / Comment(s): Stroke, TIA, and Hypothyroid. CHRONIC YEAST IN skin folds. Leakage of urine. Poor nutrition, pt states was told she had an [place] based on an old EKG ( never had an heartcath), frequent problems w/vomiting, states doens't have hypertension. Has been getting iron infusions for anemia in Procedures this week. neuorpathy, back pain, ANGINA, BLEEDING ULCERS, PLEURISY, OSTEROPEROSIS, MYFACIAL PAIN SYNDROME, SLEEP APNEA (DOES NOT USE CPAP). scoliosis Last Myocardial Infarction Date:: 2002 History of Any Multi-Drug Resistant Organisms: None Reported Past Surgical History: Bariatric Surgery, Hernia Repair, Hysterectomy, Orthopedic Surgery, Tubal Ligation Additional Past Surgical History / Comment(s): right rotator cuff repair AND REVISION, VENTRAL HERNIA REPAIR, HIATAL HERNIA REPAIR, LT KNEE ARTHROSCOPY, RECTOCELE, PERINEALPLASTY, GASTRIC BYPASS, Past Anesthesia/Blood Transfusion Reactions: Motion Sickness Past Psychological History: Anxiety, Depression Smoking Status: Never smoker Past Alcohol Use History: Rare Past Drug Use History: None Reported - Past Family History Sister(s) Family Medical History: Cancer General Exam Limitations: no limitations General appearance: alert, in no apparent distress Head exam: Present: atraumatic, normocephalic, normal inspection Eye exam: Present: normal appearance, PERRL, EOMI. Absent: scleral icterus, conjunctival injection, periorbital swelling ENT exam: Present: normal exam, mucous membranes moist Neck exam: Present: normal inspection. Absent: tenderness, meningismus, lymphadenopathy Respiratory exam: Present: normal lung sounds bilaterally. Absent: respiratory distress, wheezes, rales, rhonchi, stridor Cardiovascular Exam: Present: regular rate, normal rhythm, normal heart sounds. Absent: systolic murmur, diastolic murmur, rubs, gallop, clicks GI/Abdominal exam: Present: soft, normal bowel sounds. Absent: distended, tenderness, guarding, rebound, rigid Extremities exam: Present: normal inspection, full ROM, normal capillary refill. Absent: tenderness, pedal edema, joint swelling, calf tenderness Back exam: Present: normal inspection Neurological exam: Present: alert, oriented X3, CN II-XII intact Psychiatric exam: Present: normal affect, normal mood Skin exam: Present: warm, dry, intact, normal color. Absent: rash Course Vital Signs 11/24/18 11/24/18 18:15 21:43 Temperature 97.9 F 98.0 F Pulse Rate 72 71 Respiratory 18 18 Rate Blood Pressure 135/68 114/87 O2 Sat by Pulse 95 96 Oximetry EKG Findings - EKG Comments: EKG Findings:: EKG demonstrates a normal sinus rhythm with a ventricular rate of 76. ND interval 204. QRS 80. QTC 477. There are no acute ST segment elevations or depressions concerning for ischemic changes. No widened QRS. Medical Decision Making - Medical Decision Making Upon arrival the patient is placed in room 3. She is hooked up to continuous pulse ox and monitor technician. I did complete a 12-lead EKG on the patient which demonstrates normal sinus rhythm. Peripheral IV was established. The patient was given a 500 mL bolus of 0.9% normal saline. I did conduct laboratory studies. I also recommended a CT of the patient's brain because of her fall 2 weeks ago. Lab studies did demonstrate the patient has a sodium of 132. Her potassium is 3.2. Urinalysis demonstrates some budding yeast and bacteria. I did provide the patient with 40 mEq of potassium. Also gave her dose of Macrobid. I discussed the results with the patient. The CT of her brain demonstrates no acute findings. At this time the patient will be discharged home and needs to follow up in Dr. Lee's office for reevaluation of her electrolyte levels. The patient is to continue taking her potassium Lasix as directed. She'll be given a prescription for Macrobid and Diflucan. The patient is a new or worsening symptoms she can return to the emergency room. The patient understood this and agreed with the treatment plan. She was discharged home in stable condition - Lab Data Result diagrams: 11/24/18 18:41 11/24/18 18:41 Lab Results 11/24/18 11/24/18 11/24/18 Range/Units 18:41 18:41 18:41 WBC 8.6 (3.8-10.6) k/uL RBC 3.66 L (3.80-5.40) m/uL Hgb 10.9 L (11.4-16.0) gm/dL Hct 31.4 L (34.0-46.0) % MCV 85.9 (80.0-100.0) fL MCH 29.7 (25.0-35.0) pg MCHC 34.5 (31.0-37.0) g/dL RDW 14.2 (11.5-15.5) % Plt Count 451 H (150-450) k/uL Neutrophils % 73 % Lymphocytes % 17 % Monocytes % 7 % Eosinophils % 2 % Basophils % 0 % Neutrophils # 6.2 (1.3-7.7) k/uL Lymphocytes # 1.4 (1.0-4.8) k/uL Monocytes # 0.6 (0-1.0) k/uL Eosinophils # 0.2 (0-0.7) k/uL Basophils # 0.0 (0-0.2) k/uL PT (9.0-12.0) sec INR (<1.2) APTT (22.0-30.0) sec Sodium 132 L (137-145) mmol/L Potassium 3.2 L (3.5-5.1) mmol/L Chloride 82 L (98-107) mmol/L Carbon Dioxide 38 H (22-30) mmol/L Anion Gap 12 mmol/L BUN 33 H (7-17) mg/dL Creatinine 0.74 (0.52-1.04) mg/dL Est GFR (CKD-EPI)AfAm >90 (>60 ml/min/1.73 sqM) Est GFR (CKD-EPI)NonAf 87 (>60 ml/min/1.73 sqM) Glucose 99 (74-99) mg/dL Calcium 9.2 (8.4-10.2) mg/dL Magnesium 2.3 (1.6-2.3) mg/dL Total Bilirubin 0.5 (0.2-1.3) mg/dL AST 32 (14-36) U/L ALT 21 (9-52) U/L Alkaline Phosphatase 123 (38-126) U/L NT-Pro-B Natriuret Pep 940 pg/mL Total Protein 6.9 (6.3-8.2) g/dL Albumin 4.0 (3.5-5.0) g/dL Urine Color Urine Appearance (Clear) Urine pH (5.0-8.0) Ur Specific [place] (1.001-1.035) Urine Protein (Negative) Urine Glucose (UA) (Negative) Urine Ketones (Negative) Urine Blood (Negative) Urine Nitrite (Negative) Urine Bilirubin (Negative) Urine Urobilinogen (<2.0) mg/dL Ur Leukocyte Esterase (Negative) Urine WBC (0-5) /hpf Ur Squamous Epith Cells (0-4) /hpf Urine Bacteria (None) /hpf Hyaline Casts (0-2) /lpf Urine Mucus (None) /hpf Urine Yeast (Budding) (None) /hpf 11/24/18 11/24/18 Range/Units 18:41 20:20 WBC (3.8-10.6) k/uL RBC (3.80-5.40) m/uL Hgb (11.4-16.0) gm/dL Hct (34.0-46.0) % MCV (80.0-100.0) fL MCH (25.0-35.0) pg MCHC (31.0-37.0) g/dL RDW (11.5-15.5) % Plt Count (150-450) k/uL Neutrophils % % Lymphocytes % % Monocytes % % Eosinophils % % Basophils % % Neutrophils # (1.3-7.7) k/uL Lymphocytes # (1.0-4.8) k/uL Monocytes # (0-1.0) k/uL Eosinophils # (0-0.7) k/uL Basophils # (0-0.2) k/uL PT 9.9 (9.0-12.0) sec INR 0.9 (<1.2) APTT 27.7 (22.0-30.0) sec Sodium (137-145) mmol/L Potassium (3.5-5.1) mmol/L Chloride (98-107) mmol/L Carbon Dioxide (22-30) mmol/L Anion Gap mmol/L BUN (7-17) mg/dL Creatinine (0.52-1.04) mg/dL Est GFR (CKD-EPI)AfAm (>60 ml/min/1.73 sqM) Est GFR (CKD-EPI)NonAf (>60 ml/min/1.73 sqM) Glucose (74-99) mg/dL Calcium (8.4-10.2) mg/dL Magnesium (1.6-2.3) mg/dL Total Bilirubin (0.2-1.3) mg/dL AST (14-36) U/L ALT (9-52) U/L Alkaline Phosphatase (38-126) U/L NT-Pro-B Natriuret Pep pg/mL Total Protein (6.3-8.2) g/dL Albumin (3.5-5.0) g/dL Urine Color Yellow Urine Appearance Clear (Clear) Urine pH 8.0 (5.0-8.0) Ur Specific [place] 1.011 (1.001-1.035) Urine Protein Negative (Negative) Urine Glucose (UA) Negative (Negative) Urine Ketones Negative (Negative) Urine Blood Negative (Negative) Urine Nitrite Negative (Negative) Urine Bilirubin Negative (Negative) Urine Urobilinogen <2.0 (<2.0) mg/dL Ur Leukocyte Esterase Large H (Negative) Urine WBC 20 H (0-5) /hpf Ur Squamous Epith Cells 1 (0-4) /hpf Urine Bacteria Occasional H (None) /hpf Hyaline Casts 4 H (0-2) /lpf Urine Mucus Rare H (None) /hpf Urine Yeast (Budding) Few H (None) /hpf Disposition Clinical Impression: Hypokalemia, Hyponatremia, Urinary tract infection, Yeast infection Disposition: HOME SELF-CARE Condition: Stable Instructions (If sedation given, give patient instructions): Dehydration (ED), Urinary Tract Infection in Women (ED) Additional Instructions: Please follow-up with your primary care physician in one to 2 days. Return to emergency department for any new or worsening symptoms Prescriptions: Fluconazole [Diflucan] 150 mg PO ONCE #2 tab Nitrofurantoin Monohyd/M-Cryst [Macrobid] 100 mg PO Q12HR #10 cap Is patient prescribed a controlled substance at d/c from ED?: No Referrals: Delisa Lee DO [Primary Care Provider] - 1-2 days Time of Disposition: 21:14
[2018-11-24 20:36] LABS: Appearance,Urine Clear (Clear); Bacteria,Urine Occasional /hpf; Bilirubin,Urine Negative (Negative); Blood,Urine Negative (Negative); Budding Yeast,Urine Few /hpf; Color,Urine Yellow; Glucose,Urine (UA) Negative (Negative); Hyaline Casts,Urine 4 /lpf (0-2); Ketones,Urine Negative (Negative); Leukocyte Esterase,Urine Large (Negative); Mucus,Urine Rare /hpf; Nitrite,Urine Negative (Negative); Protein,Urine Negative (Negative); Specific Gravity,Urine 1.011 (1.001-1.035); Squamous Epithelial Cell,Urine 1 /hpf (0-4); Urobilinogen,Urine <2.0 mg/dL (<2.0); WBC,Urine 20 /hpf (0-5)
[2018-11-24] MEDS ORDERED: POTASSIUM CHLORIDE ER 20 MEQ TAB.ER PO STA (21:08)
[2018-11-24] MEDS ORDERED: NITROFURANTOIN MONOHYD/M-CRYST 100 MG CAP PO STA (21:09)
[2018-11-24 21:44] VITALS: BP 114/87; PULSE 71; TEMP 98
== END 2018-11-24 21:44 | disposition home or self-care (01) ==
LOC: EC 18:12
DX: E87.6 Hypokalemia (principal); E87.1 Hypo-osmolality and hyponatremia; N39.0 Urinary tract infection, site not specified; B37.9 Candidiasis, unspecified; I25.2 Old myocardial infarction; G47.30 Sleep apnea, unspecified; E03.9 Hypothyroidism, unspecified; F41.9 Anxiety disorder, unspecified; F32.9 Major depressive disorder, single episode, unspecified; Z79.01 Long term (current) use of anticoagulants; Z79.890 Hormone replacement therapy; Z79.899 Other long term (current) drug therapy; Z88.1 Allergy status to other antibiotic agents; Z88.2 Allergy status to sulfonamides; Z88.5 Allergy status to narcotic agent; Z88.8 Allergy status to other drugs, medicaments and biological substances; Z98.84 Bariatric surgery status; Z86.73 Personal history of transient ischemic attack (TIA), and cerebral infarction without residual deficits; Z86.718 Personal history of other venous thrombosis and embolism; Z86.711 Personal history of pulmonary embolism
CPT/HCPCS: 36415; 70450; 71046; 80053; 81001; 83735; 83880; 85025; 85610; 85730; 93005; 99284

== ENCOUNTER 2018-12-30 14:25 | Emergency (ER) | payer MEDICARE, BC ==
[2018-12-30 14:36] VITALS: RESP 18
--- NOTE | 2018-12-30 15:35 | XR ---
EXAMINATION TYPE: XR foot complete RT DATE OF EXAM: 12/30/2018 COMPARISON: None HISTORY: Pain. Trauma. TECHNIQUE: 3 views FINDINGS: There is narrowing and spurring at the first MP joint with hallux valgus. Metatarsals are i ntact. There is nondisplaced transverse fracture of the base of the proximal phalanx of the little to e. There is no dislocation. There is some sclerosis and spurring at the second and third tarsometatar aileen joints. There is soft tissue swelling of the forefoot. IMPRESSION: Acute fracture of the little toe. Soft tissue swelling. Osteoarthritic changes at the tar sometatarsal joints. Hallux valgus. Plantar calcaneal spurring noted.
--- NOTE | 2018-12-30 16:09 | ED ---
General Adult HPI - General Chief complaint: Extremity Injury, Lower Stated complaint: Foot pain Time Seen by Provider: 12/30/18 15:10 Source: patient, RN notes reviewed, old records reviewed Mode of arrival: wheelchair Limitations: no limitations - History of Present Illness Initial comments: 63-year-old female patient with the chief complaint of right foot injury. She reports that yesterday she was walking, stumbled, took an akward step and been experiencing pain. Patient reports that she is unable bear weight on the right lower extremity. Patient reports the pain is at the dorsal lateral aspect of foot. Denies any other injury, denies any other complaints. Systemic: Pt denies fatigue, fever/chills, rash. Pt denies weakness, night sweats, weight loss. Neuro: Pt denies headache, visual disturbances, syncope or pre-syncope. HEENT: Pt denies ocular discharge or irritation, otalgia, rhinorrhea, pharyngitis or notable lymphadenopathy. Cardiopulmonary: Pt denies chest pain, SOB, heart palpitations, dyspnea on exertion. Abdominal/GI: Pt denies abdominal pain, n/v/d. : Pt denies dysuria, burning w/ urination, frequency/urgency. Denies new onset urinary or bowel incontinence. MSK: Pt denies myalgia, loss of strength or function in extremities. Neuro: Pt denies new onset weakness, paresthesias. - Related Data Home Medications Medication Instructions Recorded Confirmed Levothyroxine Sodium [Synthroid] 88 mcg PO DAILY 08/09/13 11/24/18 Cyclobenzaprine [Flexeril] 5 mg PO TID PRN 11/04/15 11/24/18 Vortioxetine Hydrobromide 10 mg PO DAILY 11/04/15 11/24/18 [Trintellix] Butalb/Acetaminophen/Caffeine 2 cap PO TID PRN 08/09/17 11/24/18 [Fioricet 50-300-40 mg Capsule] rOPINIRole HCL [Requip] 1 mg PO DAILY 11/09/17 11/24/18 rOPINIRole HCL [Requip] 3 mg PO HS 11/09/17 11/24/18 Rivaroxaban [Xarelto] 10 mg PO DAILY 02/14/18 11/24/18 Amitriptyline HCl [Elavil] 50 mg PO HS 11/24/18 11/24/18 DULoxetine HCL [Cymbalta] 30 mg PO DAILY 11/24/18 11/24/18 DULoxetine HCL [Cymbalta] 60 mg PO HS 11/24/18 11/24/18 Furosemide [Lasix] 20 mg PO BID 11/24/18 11/24/18 Gabapentin 600 mg PO TID 11/24/18 11/24/18 HYDROcodone/APAP 10-325MG [[place] 1 tab PO BID 11/24/18 11/24/18 10-325] Metolazone [Zaroxolyn] 2.5 mg PO DAILY 11/24/18 11/24/18 Potassium Chloride ER [K-Dur 10] 10 meq PO DAILY 11/24/18 11/24/18 fentaNYL 25MCG/HR PATCH [[place] 1 patch TRANSDERM Q72H 11/24/18 11/24/18 25MCG/HR] rOPINIRole HCL [Requip] 3 mg PO DAILY@1200 11/24/18 11/24/18 Previous Rx's Medication Instructions Recorded Fluconazole [Diflucan] 150 mg PO ONCE #2 tab 11/24/18 Nitrofurantoin Monohyd/M-Cryst 100 mg PO Q12HR #10 cap 11/24/18 [Macrobid] Allergies Allergy/AdvReac Type Severity Reaction Status Date / Time cefprozil [From Cefzil] Allergy Unknown Verified 12/30/18 14:36 codeine Allergy Unknown Verified 12/30/18 14:36 Sulfa (Sulfonamide Allergy Rash/Hives Verified 12/30/18 14:36 Antibiotics) valdecoxib [From Bextra] Allergy Unknown Verified 12/30/18 14:36 metaxalone [From Skelaxin] AdvReac Nausea & Verified 12/30/18 14:36 Vomiting Review of Systems ROS Statement: Those systems with pertinent positive or pertinent negative responses have been documented in the HPI. ROS Other: All systems not noted in ROS Statement are negative. Past Medical History Past Medical History: Chest Pain / Angina, CVA/TIA, Deep Vein Thrombosis (DVT), Fibromyalgia, GERD/Reflux, GI Bleed, Memory Impairment, Myocardial Infarction ([place]), Osteoarthritis ([place]), Pneumonia, Pulmonary Embolus ([place]), Skin Disorder, Sleep Apnea/CPAP/BIPAP, Thyroid Disorder Additional Past Medical History / Comment(s): Stroke, TIA, and Hypothyroid. CHRONIC YEAST IN skin folds. Leakage of urine. Poor nutrition, pt states was told she had an [place] based on an old EKG ( never had an heartcath), frequent problems w/vomiting, states doens't have hypertension. Has been getting iron infusions for anemia in Procedures this week. neuorpathy, back pain, ANGINA, BLEEDING ULCERS, PLEURISY, OSTEROPEROSIS, MYFACIAL PAIN SYNDROME, SLEEP APNEA (DOES NOT USE CPAP). scoliosis Last Myocardial Infarction Date:: 2002 History of Any Multi-Drug Resistant Organisms: None Reported Past Surgical History: Bariatric Surgery, Hernia Repair, Hysterectomy, Orthopedic Surgery, Tubal Ligation Additional Past Surgical History / Comment(s): right rotator cuff repair AND REVISION, VENTRAL HERNIA REPAIR, HIATAL HERNIA REPAIR, LT KNEE ARTHROSCOPY, RECTOCELE, PERINEALPLASTY, GASTRIC BYPASS, Past Anesthesia/Blood Transfusion Reactions: Motion Sickness Past Psychological History: Anxiety, Depression Smoking Status: Never smoker Past Alcohol Use History: Rare Past Drug Use History: None Reported - Past Family History Sister(s) Family Medical History: Cancer General Exam - General Exam Comments Initial Comments: Constitutional: NAD, AOX3, Pt has pleasant affect. HEENT: NC/AT, trachea midline, neck supple, no lymphadenopathy. Posterior pharynx non erythematous, without exudates. External ears appear normal, without discharge. Mucous membranes moist. Eyes PERRLA, EOM intact. There is no scleral icterus. No pallor noted. Cardiopulmonary: RRR, no murmurs, rubs or gallops, no JVD noted. Lungs CTAB in anterior and posterior vogt. No peripheral edema. Abdominal exam: Abdomen soft and non-distended. Abdomen non-tender to palpation in all 4 quadrants. Bowel sounds active in LLQ. No hepatosplenomegaly. No ecchymosis Neuro: CN II-XII grossly intact. No nuchal rigidity. No raccon eyes, no kelley sign, no hemotympanum. No cervical spinal tenderness. MSK: Dorsal lateral aspect of right foot mildly tender to palpation. Patient will wiggle toes. Sensation intact. Plantar dorsiflexion intact. Distal pulses intact and equal. Patient placed in a posterior ankle splint, neurovascularly intact after splint placement. No posterior calf tenderness bilaterally, homans sign negative bilaterally. Posterior tibialis and radial pulse +2 bilaterally. Sensation intact in upper and lower extremities. Full active ROM in upper and lower extremities, 5/5 stregnth. Limitations: no limitations Course Vital Signs 12/30/18 14:31 Temperature 98.3 F Pulse Rate 91 Respiratory 18 Rate Blood Pressure 119/93 O2 Sat by Pulse 100 Oximetry Medical Decision Making - Medical Decision Making 63-year-old female patient with the chief complaint of right foot injury. She reports that yesterday she was walking, stumbled, took an akward step and been experiencing pain. Patient reports that she is unable bear weight on the right lower extremity. Patient reports the pain is at the dorsal lateral aspect of foot. Denies any other injury, denies any other complaints. Pt VSS, afebrile. Physical exam displayed: Dorsal lateral aspect of right foot mildly tender to palpation. Patient will wiggle toes. Sensation intact. Plantar dorsiflexion intact. Distal pulses intact and equal. Patient placed in a posterior ankle splint, neurovascularly intact after splint placement. Plain film of foot displayed acute fracture little toe, soft tissue swelling, osteophytic changes at the tarsometatarsal joints. Hallux valgus. Plantar calcaneal spurring noted. Patient was in posterior ankle splint. Discharged with prescription for crutches. Patient upper airway and right lower extremity. Patient will follow up with orthopedic consult Monday. At patient request, [facility] Patient return to ER if condition worsens. Case discussed with Dr. Mason. Disposition Clinical Impression: Toe fracture Disposition: HOME SELF-CARE Condition: Stable Instructions (If sedation given, give patient instructions): Toe Fracture (ED) Additional Instructions: Patient to adhere to previously discussed treatment plan and will take medication(s) as directed. Patient to follow up with PCP in 1-2 days. Patient to return to ED if symptoms do not improve. Follow up with orthopedic consult Monday. Do not bear weight on right lower extremity. Continue to wear splint. Use crutches. Is patient prescribed a controlled substance at d/c from ED?: No Referrals: Edd Lee MD [Primary Care Provider] - 1-2 days Marcio Dewey DO [Doctor of Osteopathic Medicine] - 1-2 days
[2018-12-30 16:25] VITALS: BP 132/95; PULSE 72; TEMP 98
== END 2018-12-30 16:24 | disposition home or self-care (01) ==
LOC: EC 14:25
DX: S92.501A Displaced unspecified fracture of right lesser toe(s), initial encounter for closed fracture (principal); M20.11 Hallux valgus (acquired), right foot; M77.31 Calcaneal spur, right foot; M25.774 Osteophyte, right foot; M79.7 Fibromyalgia; I25.2 Old myocardial infarction; E03.9 Hypothyroidism, unspecified; G62.9 Polyneuropathy, unspecified; F32.9 Major depressive disorder, single episode, unspecified; F41.9 Anxiety disorder, unspecified; Z88.1 Allergy status to other antibiotic agents; Z88.2 Allergy status to sulfonamides; Z88.5 Allergy status to narcotic agent; Z88.6 Allergy status to analgesic agent; Z88.8 Allergy status to other drugs, medicaments and biological substances; Z79.01 Long term (current) use of anticoagulants; Z79.890 Hormone replacement therapy; Z79.891 Long term (current) use of opiate analgesic; Z79.899 Other long term (current) drug therapy; Z86.73 Personal history of transient ischemic attack (TIA), and cerebral infarction without residual deficits; Z86.718 Personal history of other venous thrombosis and embolism; Z86.711 Personal history of pulmonary embolism; Z86.2 Personal history of diseases of the blood and blood-forming organs and certain disorders involving the immune mechanism; W18.49XA Other slipping, tripping and stumbling without falling, initial encounter; Y93.01 Activity, walking, marching and hiking
CPT/HCPCS: 29515; 99284

== ENCOUNTER → 2019-01-07 | Outpatient (CLI) | payer MEDICARE, BC ==
--- NOTE | 2019-01-07 10:46 | US ---
EXAMINATION TYPE: US carotid duplex BILAT DATE OF EXAM: 01/07/2019 COMPARISON: US CLINICAL HISTORY: G45.9 TIA,R41.0 CONFUSION. EXAM MEASUREMENTS: RIGHT: Peak Systolic Velocity (PSV) cm/sec ----- Right CCA: 117.3 ----- Right ICA: 82.3 ----- Right ECA: 67.1 ICA/CCA ratio: 0.7 RIGHT: End Diastole cm/sec ----- Right CCA: 26.7 ----- Right ICA: 15.0 ----- Right ECA: 8.6 LEFT: Peak Systolic Velocity (PSV) cm/sec ----- Left CCA: 87.5 ----- Left ICA: 69.8 ----- Left ECA: 76.9 ICA/CCA ratio: 0.8 LEFT: End Diastole cm/sec ----- Left CCA: 25.9 ----- Left ICA: 23.9 ----- Left ECA: 7.4 VERTEBRALS (direction of flow): Right Vertebral: Antegrade Left Vertebral: Antegrade Rhythm: Normal Morbidly obese patient with large thick neck who had to sit up for exam. Technically difficult and li mited exam. No significant velocity elevations. Unable to assess plaque. IMPRESSION: No sonographically evident hemodynamically significant stenosis within either visualized carotid arterial system. Criteria for Assigning % of Stenosis / Diameter reduction (Estimation based on the indirect measurements of the internal carotid artery velocities (ICA PSV). 1. Normal (no stenosis)=ICA PSV < 125 cm/s: ratio < 2.0: ICA EDV<40 cm/s. 2. Less than 50% stenosis=ICA PSV < 125 cm/s: ratio < 2.0: ICA EDV<40 cm/s. 3. 50 to 69% stenosis=ICA PSV of 125 to 230 cm/s: ration 2.0 ? 4.0: ICA EDV 40-100 cm/s. 4. Greater than 70% stenosis to near occlusion= ICA PSV > 230 cm/s: ratio > 4.0: ICA EDV > 100 cm/s. 5. Near occlusion= ICA PSV velocities may be low or undetectable: variable ratio and ICA EDV. 6. Total occlusion=unable to detect flow.
[2019-01-07 12:08] LABS: Albumin 4.4 g/dL (3.5-5.0); Calcium 9.9 mg/dL (8.4-10.2); Potassium 3.4 mmol/L (3.5-5.1); Total Bilirubin 0.5 mg/dL (0.2-1.3); Total Protein 7.7 g/dL (6.3-8.2)
[2019-01-07 12:22] LABS: T4, Free (Free Thyroxine) 1.81 ng/dL (0.78-2.19)
[2019-01-07 14:04] LABS: Basophils # (A) 0.1 k/uL (0-0.2); Basophils % (A) 0 %; Eosinophils # (A) 0.2 k/uL (0-0.7); Eosinophils % (A) 1 %; HCT 36.8 % (34.0-46.0); HGB 12.1 gm/dL (11.4-16.0); Lymphocytes # (A) 1.7 k/uL (1.0-4.8); Lymphocytes % (A) 15 %; MCHC 32.9 g/dL (31.0-37.0); MCV 88.3 fL (80.0-100.0); Mean Platelet Volume 5.9; Monocytes # (A) 0.7 k/uL (0-1.0); Monocytes % (A) 6 %; Neutrophils # (A) 9.1 k/uL (1.3-7.7); Neutrophils % (A) 77 %; Platelet Count 610 k/uL (150-450); RBC 4.17 m/uL (3.80-5.40); RDW 14.4 % (11.5-15.5); WBC 11.9 k/uL (3.8-10.6)
[2019-01-07 18:52] LABS: Vitamin D 25 Hydroxy 76.2 ng/mL (30.0-100.0)
== END | disposition home or self-care (01) ==
LOC: RADUSWWP 09:13
PROVIDERS: ATTEND Psychiatry & Neurology Neurology
DX: G45.9 Transient cerebral ischemic attack, unspecified (principal); I49.9 Cardiac arrhythmia, unspecified; E55.9 Vitamin D deficiency, unspecified; R41.0 Disorientation, unspecified
CPT/HCPCS: 80053; 82306; 82607; 84207; 84439; 84443; 84481; 85025; 93005; 93880

== ENCOUNTER 2019-02-04 04:40 | Emergency (ER) | payer MEDICARE, BC ==
[2019-02-04] MEDS ORDERED: HYDROmorphone 1 MG/ML 1 ML SYRINGE IM STA ×2 (05:12→05:57)
[2019-02-04] MEDS ORDERED: ORPHENADRINE 30 MG/ML 2 ML VIAL IM STA (05:12)
[2019-02-04] MEDS ORDERED: predniSONE 20 MG TAB PO STA (06:03)
[2019-02-04] MEDS ORDERED: METHADONE 10 MG TAB PO ONE (06:15)
--- NOTE | 2019-02-04 07:07 | ED ---
Back Pain [facility] - General Chief Complaint: Back Pain/Injury Stated Complaint: Sciatic Nerve Pain Time Seen by Provider: 02/04/19 05:08 Source: patient Limitations: physical limitation - History of Present Illness MD Complaint: back pain -: days(s) Similar Symptoms Previously: Yes Place: home Radiation: right leg Severity: severe Quality: burning, tingling Consistency: constant Improves With: walking Worsens With: sitting upright Context: bending Associated Symptoms: numbness - Related Data Home Medications Medication Instructions Recorded Confirmed Levothyroxine Sodium [Synthroid] 88 mcg PO DAILY 08/09/13 11/24/18 Cyclobenzaprine [Flexeril] 5 mg PO TID PRN 11/04/15 11/24/18 Vortioxetine Hydrobromide 10 mg PO DAILY 11/04/15 11/24/18 [Trintellix] Butalb/Acetaminophen/Caffeine 2 cap PO TID PRN 08/09/17 11/24/18 [Fioricet 50-300-40 mg Capsule] rOPINIRole HCL [Requip] 1 mg PO DAILY 11/09/17 11/24/18 rOPINIRole HCL [Requip] 3 mg PO HS 11/09/17 11/24/18 Rivaroxaban [Xarelto] 10 mg PO DAILY 02/14/18 11/24/18 Amitriptyline HCl [Elavil] 50 mg PO HS 11/24/18 11/24/18 DULoxetine HCL [Cymbalta] 30 mg PO DAILY 11/24/18 11/24/18 DULoxetine HCL [Cymbalta] 60 mg PO HS 11/24/18 11/24/18 Furosemide [Lasix] 20 mg PO BID 11/24/18 11/24/18 Gabapentin 600 mg PO TID 11/24/18 11/24/18 HYDROcodone/APAP 10-325MG [[place] 1 tab PO BID 11/24/18 11/24/18 10-325] Metolazone [Zaroxolyn] 2.5 mg PO DAILY 11/24/18 11/24/18 Potassium Chloride ER [K-Dur 10] 10 meq PO DAILY 11/24/18 11/24/18 fentaNYL 25MCG/HR PATCH [[place] 1 patch TRANSDERM Q72H 11/24/18 11/24/18 25MCG/HR] rOPINIRole HCL [Requip] 3 mg PO DAILY@1200 11/24/18 11/24/18 Previous Rx's Medication Instructions Recorded Fluconazole [Diflucan] 150 mg PO ONCE #2 tab 11/24/18 Nitrofurantoin Monohyd/M-Cryst 100 mg PO Q12HR #10 cap 11/24/18 [Macrobid] Allergies Allergy/AdvReac Type Severity Reaction Status Date / Time cefprozil [From Cefzil] Allergy Unknown Verified 02/04/19 04:54 codeine Allergy Unknown Verified 02/04/19 04:54 Sulfa (Sulfonamide Allergy Rash/Hives Verified 02/04/19 04:54 Antibiotics) valdecoxib [From Bextra] Allergy Unknown Verified 02/04/19 04:54 metaxalone [From Skelaxin] AdvReac Nausea & Verified 02/04/19 04:54 Vomiting Review of Systems ROS Statement: Those systems with pertinent positive or pertinent negative responses have been documented in the HPI. ROS Other: All systems not noted in ROS Statement are negative. Constitutional: Denies: fever, chills, weakness Gastrointestinal: Denies: abdominal pain, diarrhea, constipation Genitourinary: Denies: dysuria, frequency, hematuria Musculoskeletal: Reports: back pain Neurological: Reports: paresthesias. Denies: weakness, numbness Past Medical History Past Medical History: Chest Pain / Angina, CVA/TIA, Deep Vein Thrombosis (DVT), Fibromyalgia, GERD/Reflux, GI Bleed, Memory Impairment, Myocardial Infarction ([place]), Osteoarthritis (OA), Pneumonia, Pulmonary Embolus (PE), Skin Disorder, Sleep Apnea/CPAP/BIPAP, Thyroid Disorder Additional Past Medical History / Comment(s): Stroke, TIA, and Hypothyroid. CHRONIC YEAST IN skin folds. Leakage of urine. Poor nutrition, pt states was told she had an [place] based on an old EKG ( never had an heartcath), frequent problems w/vomiting, states doens't have hypertension. Has been getting iron infusions for anemia in Procedures this week. neuorpathy, back pain, ANGINA, BLEEDING ULCERS, PLEURISY, OSTEROPEROSIS, MYFACIAL PAIN SYNDROME, SLEEP APNEA (DOES NOT USE CPAP). scoliosis Last Myocardial Infarction Date:: 2002 History of Any Multi-Drug Resistant Organisms: None Reported Past Surgical History: Bariatric Surgery, Hernia Repair, Hysterectomy, Orthopedic Surgery, Tubal Ligation Additional Past Surgical History / Comment(s): right rotator cuff repair AND REVISION, VENTRAL HERNIA REPAIR, HIATAL HERNIA REPAIR, LT KNEE ARTHROSCOPY, RECTOCELE, PERINEALPLASTY, GASTRIC BYPASS, Past Anesthesia/Blood Transfusion Reactions: Motion Sickness Past Psychological History: Anxiety, Depression Smoking Status: Never smoker Past Alcohol Use History: Rare Past Drug Use History: None Reported - Past Family History Sister(s) Family Medical History: Cancer General Exam Limitations: physical limitation General appearance: alert, in distress Head exam: Present: atraumatic, normocephalic Respiratory exam: Present: normal lung sounds bilaterally. Absent: respiratory distress, wheezes, rales, rhonchi, stridor Cardiovascular Exam: Present: regular rate, normal rhythm, normal heart sounds. Absent: systolic murmur, diastolic murmur, rubs, gallop GI/Abdominal exam: Present: soft. Absent: distended, tenderness, guarding, rebound, pulsatile mass Extremities exam: Present: normal inspection, normal capillary refill. Absent: pedal edema, calf tenderness Neurological exam: Present: alert, normal gait, reflexes normal. Absent: motor sensory deficit Skin exam: Present: warm, dry, intact, normal color. Absent: rash Course Vital Signs 02/04/19 04:51 Temperature 98.6 F Pulse Rate 60 Respiratory 26 H Rate Blood Pressure 146/84 O2 Sat by Pulse 96 Oximetry Disposition Clinical Impression: Lumbar radiculopathy Disposition: HOME SELF-CARE Condition: Fair Instructions (If sedation given, give patient instructions): Lumbar Radiculopathy (ED) Is patient prescribed a controlled substance at d/c from ED?: No Referrals: Edd Lee MD [Primary Care Provider] - 1-2 days Angela Rodriguez MD [Medical Doctor] - 1-2 days
[2019-02-04 07:25] VITALS: BP 121/90; PULSE 91; RESP 18; TEMP 98.1
== END 2019-02-04 07:15 | disposition home or self-care (01) ==
LOC: EC 04:40
DX: M54.16 Radiculopathy, lumbar region (principal); E03.9 Hypothyroidism, unspecified; M79.7 Fibromyalgia; I25.2 Old myocardial infarction; M19.90 Unspecified osteoarthritis, unspecified site; D64.9 Anemia, unspecified; G62.9 Polyneuropathy, unspecified; F32.9 Major depressive disorder, single episode, unspecified; F41.9 Anxiety disorder, unspecified; Z88.1 Allergy status to other antibiotic agents; Z88.2 Allergy status to sulfonamides; Z88.5 Allergy status to narcotic agent; Z88.6 Allergy status to analgesic agent; Z88.8 Allergy status to other drugs, medicaments and biological substances; Z79.01 Long term (current) use of anticoagulants; Z79.890 Hormone replacement therapy; Z79.891 Long term (current) use of opiate analgesic; Z79.899 Other long term (current) drug therapy; Z86.73 Personal history of transient ischemic attack (TIA), and cerebral infarction without residual deficits; Z86.711 Personal history of pulmonary embolism; Z86.718 Personal history of other venous thrombosis and embolism
CPT/HCPCS: 99283; 96372 ×3; J2360; S0109; J1170; J7512

== ENCOUNTER 2019-03-27 14:20 | Emergency (ER) | payer MEDICARE, BC ==
[2019-03-27] MEDS ORDERED: KETOROLAC 30 MG/ML 1 ML VIAL IM STA (14:26)
--- NOTE | 2019-03-27 14:31 | ED ---
General Adult HPI - General Stated complaint: Fell lt foot injury Time Seen by Provider: 03/27/19 14:20 Source: patient, EMS, RN notes reviewed, old records reviewed - History of Present Illness Initial comments: This is a 64-year-old female who presents emergency Department stating she tripped over her dog and complains of left medial foot pain. Patient denies any knee pain patient denies any ankle pain. Patient denies any other injury at this time. Patient denies hitting her head or having any neck pain. Per EMS the patient is extremely dramatic. Patient denies any sites of bleeding. - Related Data Home Medications Medication Instructions Recorded Confirmed Levothyroxine Sodium [Synthroid] 88 mcg PO DAILY 08/09/13 11/24/18 Cyclobenzaprine [Flexeril] 5 mg PO TID PRN 11/04/15 11/24/18 Vortioxetine Hydrobromide 10 mg PO DAILY 11/04/15 11/24/18 [Trintellix] Butalb/Acetaminophen/Caffeine 2 cap PO TID PRN 08/09/17 11/24/18 [Fioricet 50-300-40 mg Capsule] rOPINIRole HCL [Requip] 1 mg PO DAILY 11/09/17 11/24/18 rOPINIRole HCL [Requip] 3 mg PO HS 11/09/17 11/24/18 Rivaroxaban [Xarelto] 10 mg PO DAILY 02/14/18 11/24/18 Amitriptyline HCl [Elavil] 50 mg PO HS 11/24/18 11/24/18 DULoxetine HCL [Cymbalta] 30 mg PO DAILY 11/24/18 11/24/18 DULoxetine HCL [Cymbalta] 60 mg PO HS 11/24/18 11/24/18 Furosemide [Lasix] 20 mg PO BID 11/24/18 11/24/18 Gabapentin 600 mg PO TID 11/24/18 11/24/18 HYDROcodone/APAP 10-325MG [[place] 1 tab PO BID 11/24/18 11/24/18 10-325] Metolazone [Zaroxolyn] 2.5 mg PO DAILY 11/24/18 11/24/18 Potassium Chloride ER [K-Dur 10] 10 meq PO DAILY 11/24/18 11/24/18 fentaNYL 25MCG/HR PATCH [Duragesic 1 patch TRANSDERM Q72H 11/24/18 11/24/18 25MCG/HR] rOPINIRole HCL [Requip] 3 mg PO DAILY@1200 11/24/18 11/24/18 Previous Rx's Medication Instructions Recorded Fluconazole [Diflucan] 150 mg PO ONCE #2 tab 11/24/18 Nitrofurantoin Monohyd/M-Cryst 100 mg PO Q12HR #10 cap 11/24/18 [Macrobid] Allergies Allergy/AdvReac Type Severity Reaction Status Date / Time cefprozil [From Cefzil] Allergy Unknown Verified 03/27/19 14:36 codeine Allergy Unknown Verified 03/27/19 14:36 Sulfa (Sulfonamide Allergy Rash/Hives Verified 03/27/19 14:36 Antibiotics) valdecoxib [From Bextra] Allergy Unknown Verified 03/27/19 14:36 metaxalone [From Skelaxin] AdvReac Nausea & Verified 03/27/19 14:36 Vomiting Review of Systems ROS Statement: Those systems with pertinent positive or pertinent negative responses have been documented in the HPI. ROS Other: All systems not noted in ROS Statement are negative. Past Medical History Past Medical History: Chest Pain / Angina, CVA/TIA, Deep Vein Thrombosis (DVT), Fibromyalgia, GERD/Reflux, GI Bleed, Memory Impairment, Myocardial Infarction ([place]), Osteoarthritis ([place]), Pneumonia, Pulmonary Embolus ([place]), Skin Disorder, Sleep Apnea/CPAP/BIPAP, Thyroid Disorder Additional Past Medical History / Comment(s): Stroke, TIA, and Hypothyroid. CHRONIC YEAST IN skin folds. Leakage of urine. Poor nutrition, pt states was told she had an [place] based on an old EKG ( never had an heartcath), frequent problems w/vomiting, states doens't have hypertension. Has been getting iron infusions for anemia in Procedures this week. neuorpathy, back pain, ANGINA, BLEEDING ULCERS, PLEURISY, OSTEROPEROSIS, MYFACIAL PAIN SYNDROME, SLEEP APNEA (DOES NOT USE CPAP). scoliosis Last Myocardial Infarction Date:: 2002 History of Any Multi-Drug Resistant Organisms: None Reported Past Surgical History: Bariatric Surgery, Hernia Repair, Hysterectomy, Orthopedic Surgery, Tubal Ligation Additional Past Surgical History / Comment(s): right rotator cuff repair AND REVISION, VENTRAL HERNIA REPAIR, HIATAL HERNIA REPAIR, LT KNEE ARTHROSCOPY, RECTOCELE, PERINEALPLASTY, GASTRIC BYPASS, Past Anesthesia/Blood Transfusion Reactions: Motion Sickness Past Psychological History: Anxiety, Depression Smoking Status: Never smoker Past Alcohol Use History: Rare Past Drug Use History: None Reported - Past Family History Sister(s) Family Medical History: Cancer General Exam - General Exam Comments Initial Comments: GENERAL Patient is well-developed and well-nourished. Patient is in mild distress. EYES Patient's pupils are equal and round. Extraocular motion is intact SKIN Unremarkable NEURO The patient is alert and oriented 3 PYSCH Patient has normal interpersonal interactions. MUSCULOSKELETAL Patient's medial left foot is tender to palpation at the first metatarsal. Patient has no knee tenderness or no ankle tenderness. Patient has full range of motion of the left hip. Course Vital Signs 03/27/19 14:31 Temperature 98.2 F Pulse Rate 61 Respiratory 20 Rate Blood Pressure 157/90 O2 Sat by Pulse 99 Oximetry Procedures - Orthopedic Splinting/Casting Injury #1 Side: left Lower Extremity Injury Location: short leg, foot Lower Extremity Immobilizer: posterior splint Medical Decision Making - Medical Decision Making X-ray showed a fracture of the first metatarsal on the left foot at the base. Also the x-ray indicated a possible Lisfranc fracture. Disposition Clinical Impression: Fracture of first metatarsal bone, Lisfranc fracture Disposition: HOME SELF-CARE Condition: Good Instructions (If sedation given, give patient instructions): Foot Fracture in Adults (ED) Is patient prescribed a controlled substance at d/c from ED?: No Referrals: Jason Sargent MD [STAFF PHYSICIAN] - 1-2 days Time of Disposition: 15:24
[2019-03-27 14:36] VITALS: TEMP 98.2
--- NOTE | 2019-03-27 15:04 | XR ---
EXAMINATION TYPE: XR foot complete LT DATE OF EXAM: 03/27/2019 COMPARISON: 11/04/2015. HISTORY: 64-year-old female with fall, pain TECHNIQUE: 3 views FINDINGS: Moderate to severe degenerative change first MTP joint with a oblique fracture at the base of the first metatarsal. Intra-articular extension at the first TMT joint. There is degenerative chun ge at both the navicular cuneiform joints as well as the TMT joint articulations with bony disorganiz ation and debris and increased density along the TMT joint articulations. IMPRESSION: 1. There is underlying advanced midfoot osteoarthrosis, new from 11/04/2015. Extensive bony irregularit y, cystic change/sclerosis, and some bony disorganization is present. An underlying subacute to chron ic Lisfranc injury with secondary osteoarthrosis versus neuropathic arthropathy are considerations. 2. However, there does appear to be a more acute, oblique nondisplaced fracture at the base of the fi rst metatarsal.
[2019-03-27] MEDS ORDERED: MORPHINE SULFATE 4 MG/ML SYRINGE IVP STA (15:22)
[2019-03-27] MEDS ORDERED: MORPHINE SULFATE 4 MG/ML SYRINGE IM STA (15:59)
[2019-03-27 16:33] VITALS: BP 148/78; PULSE 60; RESP 18
== END 2019-03-27 16:32 | disposition home or self-care (01) ==
LOC: EC 14:20
DX: S92.312A Displaced fracture of first metatarsal bone, left foot, initial encounter for closed fracture (principal); Z88.1 Allergy status to other antibiotic agents; M79.7 Fibromyalgia; I25.2 Old myocardial infarction; M19.90 Unspecified osteoarthritis, unspecified site; E03.9 Hypothyroidism, unspecified; G62.9 Polyneuropathy, unspecified; F32.9 Major depressive disorder, single episode, unspecified; F41.9 Anxiety disorder, unspecified; Z88.2 Allergy status to sulfonamides; Z88.5 Allergy status to narcotic agent; Z88.6 Allergy status to analgesic agent; Z88.8 Allergy status to other drugs, medicaments and biological substances; Z79.01 Long term (current) use of anticoagulants; Z79.891 Long term (current) use of opiate analgesic; Z79.890 Hormone replacement therapy; Z79.899 Other long term (current) drug therapy; Z86.73 Personal history of transient ischemic attack (TIA), and cerebral infarction without residual deficits; Z86.718 Personal history of other venous thrombosis and embolism; Z86.711 Personal history of pulmonary embolism; Z86.2 Personal history of diseases of the blood and blood-forming organs and certain disorders involving the immune mechanism; W01.0XXA Fall on same level from slipping, tripping and stumbling without subsequent striking against object, initial encounter; Y92.009 Unspecified place in unspecified non-institutional (private) residence as the place of occurrence of the external cause
CPT/HCPCS: 73630; 99284; 29515; 96374; 96372 ×2; J2270; J1885

== ENCOUNTER → 2019-04-05 | Outpatient (CLI) | payer BC, MEDICARE ==
--- NOTE | 2019-04-05 23:31 | CT ---
EXAMINATION TYPE: CT foot LT wo con DATE OF EXAM: 04/05/2019 COMPARISON: 03/27/2019 HISTORY: left foot pain following fall CT DLP: 181.1 mGycm Automated exposure control for dose reduction was used. FINDINGS: There is a subtle fracture at the base of the first metatarsal. This has extension into the articular surface. This appears to be comminuted crossing the metaphysis as well as a longitudinal component t owards the articular surface. There are advanced degenerative joint changes at the second metatarsal cuneiform junction. Additional degenerative changes are at the third and to a lesser degree fourth metatarsal base. Some milder deg enerative changes are at the fifth metatarsal base. Additional fractures are not identified. Three-D reconstructed images performed by the technologist are reviewed. Soft tissues appear unremarkable. IMPRESSION: 1. COMMINUTED FRACTURE BASE OF THE FIRST METATARSAL CUNEIFORM JUNCTION. ASSESS INTRA-ARTICULAR EXTENS ION. NO SIGNIFICANT HEALING IS EVIDENT. 2. ADVANCED DEGENERATIVE JOINT CHANGES SECOND THROUGH FOURTH TARSOMETATARSAL JUNCTION. DEGENERATIVE C HANGES ARE ALSO NOTED AT THE FIFTH METATARSAL BASE.
== END | disposition home or self-care (01) ==
LOC: RADCTMAIN 14:31
PROVIDERS: ATTEND Orthopaedic Surgery
DX: S92.312A Displaced fracture of first metatarsal bone, left foot, initial encounter for closed fracture (principal); M19.072 Primary osteoarthritis, left ankle and foot

== ENCOUNTER → 2019-05-02 | Outpatient (CLI) | payer MEDICARE ==
--- NOTE | 2019-05-02 11:59 | CT ---
EXAMINATION TYPE: CT brain wo con DATE OF EXAM: 05/02/2019 COMPARISON: 11/24/2018 HISTORY: Frequent falls. Syncope. CT DLP: 995.5 mGycm Automated exposure control for dose reduction was used. TECHNIQUE: CT scan of the head is performed without contrast. FINDINGS: There is no acute intracranial hemorrhage or midline shift identified. There is diffuse v entricular and sulcal prominence consistent with diffuse age-related cerebral atrophy. No suspicious extra-axial fluid collection. The globes are intact and the visualized sinuses are clear. Partial o pacification of the right mastoid air cells. IMPRESSION: 1. No acute intracranial hemorrhage or midline shift. 2. Diffuse age-related cerebral atrophy. 3. Partial opacification of the right mastoid air cells. Correlate for point tenderness to exclude ma stoiditis.
== END | disposition home or self-care (01) ==
LOC: RADCTMAIN 10:49
PROVIDERS: ATTEND Family Medicine
DX: G31.1 Senile degeneration of brain, not elsewhere classified (principal)
CPT/HCPCS: 70450

== ENCOUNTER 2019-06-02 02:36 | Emergency (ER) | payer MEDICARE ==
[2019-06-02] MEDS ORDERED: HYDROcodone/APAP 10-325MG 1 EACH TAB PO ONE (03:09)
--- NOTE | 2019-06-02 03:39 | XR ---
EXAMINATION TYPE: XR ribs RT w pa chest xray DATE OF EXAM: 06/02/2019 COMPARISON: 11/24/2018 HISTORY: Fall. Rib pain. TECHNIQUE: 3 views FINDINGS: There is poor inspiration. There is elevation of left and right diaphragm. There is mild at electasis at the lung bases. I see no pleural effusion or pneumothorax. The right ribs appear intact. There is subacromial severe joint space narrowing with superior subluxation of the humeral head. IMPRESSION: No rib fracture seen. Mild subsegmental atelectasis at the lung bases. No heart failure. Inspiration decreased compared to old exam.
--- NOTE | 2019-06-02 03:41 | XR ---
EXAMINATION TYPE: XR shoulder complete RT DATE OF EXAM: 06/02/2019 COMPARISON: Old chest x-rays HISTORY: Fall. Shoulder pain. TECHNIQUE: 3 views FINDINGS: There is narrowing of the subacromial joint space. There is deformity of the humeral head c onsistent with old dislocations. I see no acute fracture nor dislocation. IMPRESSION: Moderate subacromial joint space narrowing and impingement could relate to chronic rotato r cuff tear. There is probably recurrent dislocations of the shoulder joint. No significant change co mpared to 2012.
--- NOTE | 2019-06-02 04:12 | ED ---
General Adult HPI - General Chief complaint: Extremity Injury, Upper Stated complaint: RT Arm/Pectoral Injury Time Seen by Provider: 06/02/19 03:03 Source: patient, family, RN notes reviewed, old records reviewed Mode of arrival: ambulatory Limitations: no limitations - History of Present Illness Initial comments: 64-year-old female patient with the for evaluation of right shoulder pain reports that she fell one week ago landing on her right side. Patient works that she stumbled. Patient reports that she's had pain in her right shoulder, right anterior chest region since. Patient reports that her had to pull her up and she will she may have torn her pectoral muscle. Patient reports that her range of motion in her right upper extremity is limited secondary to pain. Patient is also of chronic rotator cuff issues in her right shoulder has had multiple surgeries. Denies any other complaints. Denies any trauma to head or neck. Systemic: Pt denies fatigue, fever/chills, rash. Pt denies weakness, night sweats, weight loss. Neuro: Pt denies headache, visual disturbances, syncope or pre-syncope. HEENT: Pt denies ocular discharge or irritation, otalgia, rhinorrhea, pharyngitis or notable lymphadenopathy. Cardiopulmonary: Pt denies chest pain, SOB, heart palpitations, dyspnea on exertion. Abdominal/GI: Pt denies abdominal pain, n/v/d. : Pt denies dysuria, burning w/ urination, frequency/urgency. Denies new onset urinary or bowel incontinence. MSK: Pt denies myalgia, loss of strength or function in extremities. Neuro: Pt denies new onset weakness, paresthesias. - Related Data Home Medications Medication Instructions Recorded Confirmed Levothyroxine Sodium [Synthroid] 88 mcg PO DAILY 08/09/13 11/24/18 Cyclobenzaprine [Flexeril] 5 mg PO TID PRN 11/04/15 11/24/18 Vortioxetine Hydrobromide 10 mg PO DAILY 11/04/15 11/24/18 [Trintellix] Butalb/Acetaminophen/Caffeine 2 cap PO TID PRN 08/09/17 11/24/18 [Fioricet 50-300-40 mg Capsule] rOPINIRole HCL [Requip] 1 mg PO DAILY 11/09/17 11/24/18 rOPINIRole HCL [Requip] 3 mg PO HS 11/09/17 11/24/18 Rivaroxaban [Xarelto] 10 mg PO DAILY 02/14/18 11/24/18 Amitriptyline HCl [Elavil] 50 mg PO HS 11/24/18 11/24/18 DULoxetine HCL [Cymbalta] 30 mg PO DAILY 11/24/18 11/24/18 DULoxetine HCL [Cymbalta] 60 mg PO HS 11/24/18 11/24/18 Furosemide [Lasix] 20 mg PO BID 11/24/18 11/24/18 Gabapentin 600 mg PO TID 11/24/18 11/24/18 HYDROcodone/APAP 10-325MG [[place] 1 tab PO BID 11/24/18 11/24/18 10-325] Metolazone [Zaroxolyn] 2.5 mg PO DAILY 11/24/18 11/24/18 Potassium Chloride ER [K-Dur 10] 10 meq PO DAILY 11/24/18 11/24/18 fentaNYL 25MCG/HR PATCH [[place]ages[place] 1 patch TRANSDERM Q72H 11/24/18 11/24/18 25MCG/HR] rOPINIRole HCL [Requip] 3 mg PO DAILY@1200 11/24/18 11/24/18 Previous Rx's Medication Instructions Recorded Fluconazole [Diflucan] 150 mg PO ONCE #2 tab 11/24/18 Nitrofurantoin Monohyd/M-Cryst 100 mg PO Q12HR #10 cap 11/24/18 [Macrobid] Allergies Allergy/AdvReac Type Severity Reaction Status Date / Time cefprozil [From Cefzil] Allergy Unknown Verified 06/02/19 02:44 codeine Allergy Unknown Verified 06/02/19 02:44 Sulfa (Sulfonamide Allergy Rash/Hives Verified 06/02/19 02:44 Antibiotics) valdecoxib [From Bextra] Allergy Unknown Verified 06/02/19 02:44 metaxalone [From Skelaxin] AdvReac Nausea & Verified 06/02/19 02:44 Vomiting Review of Systems ROS Statement: Those systems with pertinent positive or pertinent negative responses have been documented in the HPI. ROS Other: All systems not noted in ROS Statement are negative. Past Medical History Past Medical History: Chest Pain / Angina, CVA/TIA, Deep Vein Thrombosis (DVT), Fibromyalgia, GERD/Reflux, GI Bleed, Memory Impairment, Myocardial Infarction ([place]), Osteoarthritis ([place]), Pneumonia, Pulmonary Embolus ([place]), Skin Disorder, Sleep Apnea/CPAP/BIPAP, Thyroid Disorder Additional Past Medical History / Comment(s): Stroke, TIA, and Hypothyroid. CHRONIC YEAST IN skin folds. Leakage of urine. Poor nutrition, pt states was told she had an [place] based on an old EKG ( never had an heartcath), frequent problems w/vomiting, states doens't have hypertension. Has been getting iron infusions for anemia in Procedures this week. neuorpathy, back pain, ANGINA, BLEEDING ULCERS, PLEURISY, OSTEROPEROSIS, MYFACIAL PAIN SYNDROME, SLEEP APNEA (DOES NOT USE CPAP). scoliosis Last Myocardial Infarction Date:: 2002 History of Any Multi-Drug Resistant Organisms: None Reported Past Surgical History: Bariatric Surgery, Hernia Repair, Hysterectomy, Orthopedic Surgery, Tubal Ligation Additional Past Surgical History / Comment(s): right rotator cuff repair AND REVISION, VENTRAL HERNIA REPAIR, HIATAL HERNIA REPAIR, LT KNEE ARTHROSCOPY, RECTOCELE, PERINEALPLASTY, GASTRIC BYPASS, Past Anesthesia/Blood Transfusion Reactions: Motion Sickness Past Psychological History: Anxiety, Depression Smoking Status: Never smoker Past Alcohol Use History: Rare Past Drug Use History: None Reported - Past Family History Sister(s) Family Medical History: Cancer General Exam - General Exam Comments Initial Comments: Constitutional: NAD, AOX3, Pt has pleasant affect. HEENT: NC/AT, trachea midline, neck supple, no lymphadenopathy. Posterior pharynx non erythematous, without exudates. External ears appear normal, without discharge. Mucous membranes moist. Eyes PERRLA, EOM intact. There is no scleral icterus. No pallor noted. Cardiopulmonary: RRR, no murmurs, rubs or gallops, no JVD noted. Lungs CTAB in anterior and posterior vogt. No peripheral edema. Abdominal exam: Abdomen soft and non-distended. Abdomen non-tender to palpation in all 4 quadrants. Bowel sounds active in LLQ. No hepatosplenomegaly. No ecchymosis Neuro: CN II-XII grossly intact. No nuchal rigidity. No raccon eyes, no kelley sign, no hemotympanum. No cervical spinal tenderness. MSK: Right anterior pectoral region bilaterally tender to palpation. No skin changes. Active range of motion right upper extremity limited. Passive Range of motion is intact. Neurovascularly intact. No point tenderness of shoulder. No posterior calf tenderness bilaterally, homans sign negative bilaterally. Posterior tibialis and radial pulse +2 bilaterally. Sensation intact in upper and lower extremities. Limitations: no limitations Course Vital Signs 06/02/19 02:40 Temperature 97.2 F L Pulse Rate 54 L Respiratory 20 Rate Blood Pressure 111/55 O2 Sat by Pulse 99 Oximetry Medical Decision Making - Medical Decision Making 64-year-old female patient with the for evaluation of right shoulder pain reports that she fell one week ago landing on her right side. Patient works that she stumbled. Patient reports that she's had pain in her right shoulder, right anterior chest region since. Patient reports that her had to pull her up and she will she may have torn her pectoral muscle. Patient reports that her range of motion in her right upper extremity is limited secondary to pain. Patient is also of chronic rotator cuff issues in her right shoulder has had multiple surgeries. Denies any other complaints. Denies any trauma to head or neck. Pt VSS, afebrile. Physical exam displayed: Right anterior pectoral region bilaterally tender to palpation. No skin changes. Active range of motion right upper extremity limited. Passive Range of motion is intact. Neurovascularly intact. Plain film of chest x-ray right ribs with mild subsegmental atelectasis. No fracture seen. Plain film of right shoulder displayed mild subacromial space narrowing. Likely chronic rotator cuff tear. Patient will be discharged with outpatient orthopedic follow-up as well as primary caregiver return to ER physician worsens. Case discussed with Dr. Mercado. Disposition Clinical Impression: Fall, Shoulder sprain Disposition: HOME SELF-CARE Condition: Stable Instructions (If sedation given, give patient instructions): Shoulder Sprain (ED) Additional Instructions: Follow-up with primary care provider tomorrow. Follow-up with orthopedic consult tomorrow. Return to ER if condition worsens. Is patient prescribed a controlled substance at d/c from ED?: No Referrals: Edd Lee MD [Primary Care Provider] - 1-2 days
--- NOTE | 2019-06-02 04:13 | ED ---
Disposition Clinical Impression: Fall, Shoulder sprain Disposition: HOME SELF-CARE Condition: Stable Instructions (If sedation given, give patient instructions): Shoulder Sprain (ED) Additional Instructions: Follow-up with primary care provider tomorrow. Follow-up with orthopedic consult tomorrow. Return to ER if condition worsens. Is patient prescribed a controlled substance at d/c from ED?: No Referrals: Edd Lee MD [Primary Care Provider] - 1-2 days Antonio Dewey DO [Doctor of Osteopathic Medicine] - 1-2 days
[2019-06-02 04:22] VITALS: BP 141/83; PULSE 69; RESP 18; TEMP 97.7
== END 2019-06-02 04:27 | disposition home or self-care (01) ==
LOC: EC 02:36
DX: S43.401A Unspecified sprain of right shoulder joint, initial encounter (principal); J98.11 Atelectasis; I25.2 Old myocardial infarction; M79.7 Fibromyalgia; K21.9 Gastro-esophageal reflux disease without esophagitis; E03.9 Hypothyroidism, unspecified; D64.9 Anemia, unspecified; G62.9 Polyneuropathy, unspecified; M81.0 Age-related osteoporosis without current pathological fracture; F32.9 Major depressive disorder, single episode, unspecified; F41.9 Anxiety disorder, unspecified; M19.90 Unspecified osteoarthritis, unspecified site; Z79.890 Hormone replacement therapy; Z79.01 Long term (current) use of anticoagulants; Z79.891 Long term (current) use of opiate analgesic; Z79.899 Other long term (current) drug therapy; Z88.2 Allergy status to sulfonamides; Z88.8 Allergy status to other drugs, medicaments and biological substances; Z88.6 Allergy status to analgesic agent; Z88.1 Allergy status to other antibiotic agents; Z86.73 Personal history of transient ischemic attack (TIA), and cerebral infarction without residual deficits; Z86.718 Personal history of other venous thrombosis and embolism; Z87.19 Personal history of other diseases of the digestive system; Z86.711 Personal history of pulmonary embolism; Z98.84 Bariatric surgery status; W19.XXXA Unspecified fall, initial encounter
CPT/HCPCS: 99284

== ENCOUNTER → 2019-06-19 | Outpatient (CLI) | payer MEDICARE ==
--- NOTE | 2019-06-19 15:00 | CT ---
EXAMINATION TYPE: CT lumbar spine wo con DATE OF EXAM: 06/19/2019 2:39 PM COMPARISON: CT lumbar spine February 14, 2018 HISTORY: Lumbago with radiculopathy CT DLP: 1929.8 mGycm Automated exposure control for dose reduction was used. Unenhanced CT of the lumbar spine was performed. Bone and soft tissue window settings are submitted as well as coronal and sagittal reconstructions. 5 lumbar type vertebra are redemonstrated. Dextroconvex scoliosis centered at L2-L3 level. Vertebral body heights are maintained. Multilevel disc desiccation and disc space narrowing greatest at L2-L3, L4-L5, and L5-S1 levels redemonstrated. Review of axial images shows no large disc herniation. Moderate facet arthropathy L3-L4 through the L 5-S1 levels is redemonstrated. Spinal canal grossly preserved. Occasional diverticula in the sigmoid colon are present. IMPRESSION: As above. No significant change from prior.
== END | disposition home or self-care (01) ==
LOC: RADCTMAIN 14:12
PROVIDERS: ATTEND Family Medicine
DX: M99.73 Connective tissue and disc stenosis of intervertebral foramina of lumbar region (principal); M99.74 Connective tissue and disc stenosis of intervertebral foramina of sacral region; M47.26 Other spondylosis with radiculopathy, lumbar region; M47.27 Other spondylosis with radiculopathy, lumbosacral region; M41.86 Other forms of scoliosis, lumbar region; Z88.5 Allergy status to narcotic agent; Z88.8 Allergy status to other drugs, medicaments and biological substances
CPT/HCPCS: 72131

== ENCOUNTER → 2019-08-27 | Outpatient (CLI) | payer MEDICARE ==
[2019-08-27 10:15] LABS: HCT 36.9 % (34.0-46.0); HGB 11.6 gm/dL (11.4-16.0); Hypochromasia Slight; MCH 28.7 pg (25.0-35.0); MCHC 31.3 g/dL (31.0-37.0); MCV 91.6 fL (80.0-100.0); Mean Platelet Volume 6.7; Platelet Count 416 k/uL (150-450); RBC 4.03 m/uL (3.80-5.40); RDW 13.4 % (11.5-15.5)
[2019-08-27 15:42] LABS: T4, Free (Free Thyroxine) 1.4 ng/dL (0.80-1.80)
[2019-08-27 15:45] LABS: African American GFR (CKD) 105.4 (60.0-200.0); Albumin/Globulin Ratio 1.82 (1.60-3.17); Anion Gap 9.3 mmol/L (4.00-12.00); BUN/Creat Ratio 32.86 Ratio (12.00-20.00); Calcium 9.1 mg/dL (8.7-10.3); Carbon Dioxide 24.7 mmol/L (21.6-31.8); Chol/HDL Ratio 2.31; Globulin 2.2 g/dL (1.6-3.3); LDL Cholesterol,Calculated 85.2 mg/dL (0.0-131.0); Non-African American GFR(CKD) 90.9 (60.0-200.0); Potassium 4.4 mmol/L (3.5-5.5); Total Bilirubin 0.3 mg/dL (0.3-1.2); Total Protein 6.2 g/dL (6.2-8.2); VLDL Calculation 12.8 mg/dL (5.00-40.00)
== END | disposition home or self-care (01) ==
LOC: LABWHC1 08:56
PROVIDERS: ATTEND Family Medicine
DX: I11.0 Hypertensive heart disease with heart failure (principal); I50.32 Chronic diastolic (congestive) heart failure; R53.83 Other fatigue; R79.89 Other specified abnormal findings of blood chemistry
CPT/HCPCS: 36415; 80053; 80061; 82306; 83880; 84439; 84443; 85027

== ENCOUNTER → 2019-09-04 | Outpatient (CLI) | payer MEDICARE ==
[2019-09-04 11:38] LABS: African American GFR (CKD) >90 (>60 ml/min/1.73 sqM); Blood Urea Nitrogen 22 mg/dL (7-17); Non-African American GFR(CKD) >90 (>60 ml/min/1.73 sqM)
--- NOTE | 2019-09-04 12:56 | CT ---
EXAMINATION TYPE: CT brain w con DATE OF EXAM: 09/04/2019 COMPARISON: CT brain dated 05/02/2019. HISTORY: Unsteady gait. CT DLP: 1369.7 mGycm. Automated Exposure Control for Dose Reduction was Utilized. TECHNIQUE: CT scan of the brain is performed with IV contrast, axial images are obtained, coronal ref ormatted images are also reviewed. FINDINGS: No abnormal enhancing mass or midline shift is seen. Ventricles and sulci normal in size fo r patient's age. Xie-white matter differentiation fairly well maintained. Patchy fluid signal right greater than left mastoid air cells particularly inferiorly remains present. IMPRESSION: Possible persistent mild right greater than left mastoiditis, correlate clinically otherw ise unremarkable study
== END | disposition home or self-care (01) ==
LOC: RADCTMAIN 10:44
PROVIDERS: ATTEND Otolaryngology
DX: R42 Dizziness and giddiness (principal); Z88.2 Allergy status to sulfonamides; Z88.5 Allergy status to narcotic agent; Z88.8 Allergy status to other drugs, medicaments and biological substances; Z88.6 Allergy status to analgesic agent
CPT/HCPCS: 82565; 84520; 70460; 36415; Q9967

== ENCOUNTER 2019-09-21 23:23 | Emergency (ER) | payer MEDICARE ==
[2019-09-22] MEDS ORDERED: HYDROcodone/APAP 5-325MG 1 EACH TAB PO STA (00:35)
--- NOTE | 2019-09-22 01:17 | XR ---
EXAMINATION TYPE: XR shoulder complete LT DATE OF EXAM: 09/22/2019 COMPARISON: NONE HISTORY: Shoulder pain TECHNIQUE: 3 views FINDINGS: There is no dislocation. There is subacromial joint space narrowing and impingement. There is narrowing of the joint spaces. I see no fracture. IMPRESSION: Subacromial impingement with arthritic changes. No fracture seen.
--- NOTE | 2019-09-22 01:26 | XR ---
EXAMINATION TYPE: XR humerus LT DATE OF EXAM: 09/22/2019 COMPARISON: NONE HISTORY: Fall. Pain. TECHNIQUE: 4 views FINDINGS: I see no fracture nor dislocation. Elbow joint is intact. Shoulder joint is anatomic. There is subacromial joint space narrowing and impingement. IMPRESSION: No fracture seen of the humerus.
--- NOTE | 2019-09-22 01:35 | XR ---
EXAMINATION TYPE: XR forearm LT DATE OF EXAM: 09/22/2019 COMPARISON: NONE HISTORY: Fall. Pain. TECHNIQUE: 2 views FINDINGS: There is some irregularity of the radial head at the neck that is suspicious for nondisplac ed acute fracture. The elbow joint is anatomic. The wrist joint appears intact. IMPRESSION: Possible nondisplaced fracture of the neck of the radial head. Limited visualization of t he radial head.
--- NOTE | 2019-09-22 01:36 | XR ---
EXAMINATION TYPE: XR hand complete LT DATE OF EXAM: 09/22/2019 COMPARISON: NONE HISTORY: Pain TECHNIQUE: 3 views FINDINGS: There is some narrowing of the second MP joint. I see no fracture nor dislocation. There ar e no erosions. IMPRESSION: Nonspecific minimal arthritic change at the second MP joint. No fracture seen.
--- NOTE | 2019-09-22 01:48 | XR ---
EXAMINATION TYPE: XR knee 4V LT DATE OF EXAM: 09/22/2019 COMPARISON: NONE HISTORY: Knee pain TECHNIQUE: 4 views FINDINGS: There is some narrowing of the lateral joint space. There is spurring at the patellofemoral joint. There is no sign of a joint effusion. I see no fracture nor dislocation. IMPRESSION: Osteoarthritic changes in the knee that is worse in the lateral joint space. No fracture seen.
--- NOTE | 2019-09-22 02:33 | ED ---
General Adult HPI - General Chief complaint: Extremity Injury, Upper Stated complaint: Fall, LT arm pain Time Seen by Provider: 09/22/19 00:02 Source: patient, family, RN notes reviewed, old records reviewed Mode of arrival: ambulatory Limitations: no limitations - History of Present Illness Initial comments: 64-year-old female patient presented for chief complaint of fall. Patient reports that she slipped on a rug falling forward. Patient reports that she caught herself without left arm. Denies any trauma to head or neck. Patient is a history of torn rotator cuff in his chronic shoulder pain. Patient chief complaint is pain from her shoulder down to her hand. Patient also reports some anterior left knee pain. Patient is ambulatory without difficulty. She denies any other complaints. Systemic: Pt denies fatigue, fever/chills, rash. Pt denies weakness, night sweats, weight loss. Neuro: Pt denies headache, visual disturbances, syncope or pre-syncope. HEENT: Pt denies ocular discharge or irritation, otalgia, rhinorrhea, pharyngitis or notable lymphadenopathy. Cardiopulmonary: Pt denies chest pain, SOB, heart palpitations, dyspnea on exertion. Abdominal/GI: Pt denies abdominal pain, n/v/d. : Pt denies dysuria, burning w/ urination, frequency/urgency. Denies new onset urinary or bowel incontinence. Neuro: Pt denies new onset weakness, paresthesias. - Related Data Home Medications Medication Instructions Recorded Confirmed Levothyroxine Sodium [Synthroid] 88 mcg PO DAILY 08/09/13 11/24/18 Cyclobenzaprine [Flexeril] 5 mg PO TID PRN 11/04/15 11/24/18 Vortioxetine Hydrobromide 10 mg PO DAILY 11/04/15 11/24/18 [Trintellix] Butalb/Acetaminophen/Caffeine 2 cap PO TID PRN 08/09/17 11/24/18 [Fioricet 50-300-40 mg Capsule] rOPINIRole HCL [Requip] 1 mg PO DAILY 11/09/17 11/24/18 rOPINIRole HCL [Requip] 3 mg PO HS 11/09/17 11/24/18 Rivaroxaban [Xarelto] 10 mg PO DAILY 02/14/18 11/24/18 Amitriptyline HCl [Elavil] 50 mg PO HS 11/24/18 11/24/18 DULoxetine HCL [Cymbalta] 30 mg PO DAILY 11/24/18 11/24/18 DULoxetine HCL [Cymbalta] 60 mg PO HS 11/24/18 11/24/18 Furosemide [Lasix] 20 mg PO BID 11/24/18 11/24/18 Gabapentin 600 mg PO TID 11/24/18 11/24/18 HYDROcodone/APAP 10-325MG [[place] 1 tab PO BID 11/24/18 11/24/18 10-325] Metolazone [Zaroxolyn] 2.5 mg PO DAILY 11/24/18 11/24/18 Potassium Chloride ER [K-Dur 10] 10 meq PO DAILY 11/24/18 11/24/18 fentaNYL 25MCG/HR PATCH [Duragesic 1 patch TRANSDERM Q72H 11/24/18 11/24/18 25MCG/HR] rOPINIRole HCL [Requip] 3 mg PO DAILY@1200 11/24/18 11/24/18 Previous Rx's Medication Instructions Recorded Fluconazole [Diflucan] 150 mg PO ONCE #2 tab 11/24/18 Nitrofurantoin Monohyd/M-Cryst 100 mg PO Q12HR #10 cap 11/24/18 [Macrobid] Allergies Allergy/AdvReac Type Severity Reaction Status Date / Time cefprozil [From Cefzil] Allergy Unknown Verified 09/21/19 23:32 codeine Allergy Unknown Verified 09/21/19 23:32 Sulfa (Sulfonamide Allergy Rash/Hives Verified 09/21/19 23:32 Antibiotics) valdecoxib [From Bextra] Allergy Unknown Verified 09/21/19 23:32 metaxalone [From Skelaxin] AdvReac Nausea & Verified 09/21/19 23:32 Vomiting Review of Systems ROS Statement: Those systems with pertinent positive or pertinent negative responses have been documented in the HPI. ROS Other: All systems not noted in ROS Statement are negative. Past Medical History Past Medical History: Chest Pain / Angina, CVA/TIA, Deep Vein Thrombosis (DVT), Fibromyalgia, GERD/Reflux, GI Bleed, Memory Impairment, Myocardial Infarction ([place]), Osteoarthritis (OA), Pneumonia, Pulmonary Embolus (PE), Skin Disorder, Sleep Apnea/CPAP/BIPAP, Thyroid Disorder Additional Past Medical History / Comment(s): Stroke, TIA, and Hypothyroid. CHRONIC YEAST IN skin folds. Leakage of urine. Poor nutrition, pt states was told she had an OK based on an old EKG ( never had an heartcath), frequent problems w/vomiting, states doens't have hypertension. Has been getting iron infusions for anemia in Procedures this week. neuorpathy, back pain, ANGINA, BLEEDING ULCERS, PLEURISY, OSTEROPEROSIS, MYFACIAL PAIN SYNDROME, SLEEP APNEA (DOES NOT USE CPAP). scoliosis Last Myocardial Infarction Date:: 2002 History of Any Multi-Drug Resistant Organisms: None Reported Past Surgical History: Bariatric Surgery, Hernia Repair, Hysterectomy, Orthopedic Surgery, Tubal Ligation Additional Past Surgical History / Comment(s): right rotator cuff repair AND REVISION, VENTRAL HERNIA REPAIR, HIATAL HERNIA REPAIR, LT KNEE ARTHROSCOPY, RECTOCELE, PERINEALPLASTY, GASTRIC BYPASS, Past Anesthesia/Blood Transfusion Reactions: Motion Sickness Past Psychological History: Anxiety, Depression Smoking Status: Never smoker Past Alcohol Use History: Rare Past Drug Use History: None Reported - Past Family History Sister(s) Family Medical History: Cancer General Exam - General Exam Comments Initial Comments: Constitutional: NAD, AOX3, Pt has pleasant affect. HEENT: NC/AT, trachea midline, neck supple, no lymphadenopathy. Posterior pharynx non erythematous, without exudates. External ears appear normal, without discharge. Mucous membranes moist. Eyes PERRLA, EOM intact. There is no scleral icterus. No pallor noted. Cardiopulmonary: RRR, no murmurs, rubs or gallops, no JVD noted. Lungs CTAB in anterior and posterior vogt. No peripheral edema. Abdominal exam: Abdomen soft and non-distended. Abdomen non-tender to palpation in all 4 quadrants. Bowel sounds active in LLQ. No hepatosplenomegaly. No ecchymosis. Neuro: CN II-XII intact. No nuchal rigidity. No raccon eyes, no kelley sign, no hemotympanum. No cervical spinal tenderness. MSK: Left shoulder, humerus, elbow, thumb moderately tender to palpation. No external skin changes. Range of motion is intact but does cause discomfort.. Patient placed in a sugar tong splint. Neurovascularly intact before and after splint placement. Posterior tibialis and radial pulse +2 bilaterally. Sensation intact in upper and lower extremities. Left anterior knee mildly tender to palpation. Full active range of motion. Ambulatory without difficulty. Posterior thorax examined, no tenderness, no ecchymoses, no cervical thoracic lumbar tenderness. Limitations: no limitations Course Vital Signs 09/21/19 09/22/19 23:27 02:51 Temperature 99.1 F 98 F Pulse Rate 81 79 Respiratory 20 18 Rate Blood Pressure 100/68 110/69 O2 Sat by Pulse 97 98 Oximetry Procedures - Orthopedic Splinting/Casting Injury #1 Side: left Upper Extremity Injury Location: short arm Upper Extremity Immobilizer: sugar tong splint Medical Decision Making - Medical Decision Making 64-year-old female patient presented for chief complaint of fall. Patient reports that she slipped on a rug falling forward. Patient reports that she caught herself without left arm. Denies any trauma to head or neck. Patient is a history of torn rotator cuff in his chronic shoulder pain. Patient chief complaint is pain from her shoulder down to her hand. Patient also reports some anterior left knee pain. Patient is ambulatory without difficulty. She denies any other complaints. Patient vital signs are stable, afebrile. Physical exam displayed: Left shoulder, humerus, elbow, thumb moderately tender to palpation. No external skin changes. Range of motion is intact but does cause discomfort.. Patient placed in a sugar tong splint. Neurovascularly intact before and after splint placement. Posterior tibialis and radial pulse +2 bilaterally. Sensation intact in upper and lower extremities. Left anterior knee mildly tender to palpation. Full active range of motion. Ambulatory without difficulty. Posterior thorax examined, no tenderness, no ecchymoses, no cervical thoracic lumbar tenderness. Plain film of the displayed osteophytic changes no fracture seen. Plain film hand displayed nonspecific minimal arthritic change of the second MP joint. No fracture seen. Plain film for displayed possible nondisplaced fracture of the neck of the radial head. Limited visualization of the radial head. Plain film humerus displayed no fracture seen. Plain film of shoulder displayed subacromial impingement with arthritic changes. No fracture seen. Patient was discharged for follow-up with a previous establish orthopedic surgeon as well as primary care provider will return to ER if condition worsens. Case discussed with Dr. Ross. Disposition Clinical Impression: Radial head fracture Disposition: HOME SELF-CARE Condition: Stable Instructions (If sedation given, give patient instructions): Elbow Fracture (ED) Additional Instructions: Follow-up with orthopedic consult tomorrow. Follow-up with primary care provider tomorrow. Return to ER if condition worsens. Is patient prescribed a controlled substance at d/c from ED?: No Referrals: Edd Lee MD [Primary Care Provider] - 1-2 days Marcio Dewey DO [Doctor of Osteopathic Medicine] - 1-2 days
[2019-09-22 02:52] VITALS: BP 110/69; PULSE 79; RESP 18; TEMP 98
== END 2019-09-22 02:54 | disposition home or self-care (01) ==
LOC: EC 23:23
DX: S52.122A Displaced fracture of head of left radius, initial encounter for closed fracture (principal); M25.562 Pain in left knee; M19.90 Unspecified osteoarthritis, unspecified site; G47.30 Sleep apnea, unspecified; M79.7 Fibromyalgia; K21.9 Gastro-esophageal reflux disease without esophagitis; I25.2 Old myocardial infarction; F41.9 Anxiety disorder, unspecified; F32.9 Major depressive disorder, single episode, unspecified; Z79.899 Other long term (current) drug therapy; Z79.890 Hormone replacement therapy; Z88.2 Allergy status to sulfonamides; Z88.5 Allergy status to narcotic agent; Z88.8 Allergy status to other drugs, medicaments and biological substances; Z99.89 Dependence on other enabling machines and devices; Z86.718 Personal history of other venous thrombosis and embolism; Z86.711 Personal history of pulmonary embolism; Z86.73 Personal history of transient ischemic attack (TIA), and cerebral infarction without residual deficits; Z98.890 Other specified postprocedural states; W01.0XXA Fall on same level from slipping, tripping and stumbling without subsequent striking against object, initial encounter; Y92.000 Kitchen of unspecified non-institutional (private) residence as the place of occurrence of the external cause
CPT/HCPCS: 29125; 99284

== ENCOUNTER 2019-10-18 09:22 | Inpatient (IN) | payer MEDICARE ==
[2019-10-18] MEDS ORDERED: ASPIRIN 81 MG PO STA (10:01)
[2019-10-18] MEDS ORDERED: NITROGLYCERIN OINT 1 INCH/GM PACKET TOPICAL STA (10:01)
[2019-10-18] MEDS ORDERED: ONDANSETRON 4 MG/2 ML VIAL IVP STA (10:02)
--- NOTE | 2019-10-18 10:03 | ED ---
General Adult HPI - General Chief complaint: Shortness of Breath Stated complaint: SOB Time Seen by Provider: 10/18/19 10:00 Source: patient, RN notes reviewed, old records reviewed Mode of arrival: ambulatory Limitations: no limitations - History of Present Illness Initial comments: This is a 64-year-old female who presents emergency Department with a past medical history significant for coronary artery disease and pulmonary embolisms. Patient states she is on Coumadin. Patient states she started having difficulty breathing yesterday with a slight cough but she also is experiencing some chest pain. Patient denies any radiation of the pain. Patient denies any fever chills. Patient denies any lightheadedness or dizziness. Patient denies headache patient denies numbness weakness. Patient denies abdominal pain patient denies nausea vomiting diarrhea. Patient states the swelling in her legs is gone down considerably recently. Patient states exertion does seem to make the difficulty breathing worse. - Related Data Home Medications Medication Instructions Recorded Confirmed Levothyroxine Sodium [Synthroid] 88 mcg PO DAILY 08/09/13 11/24/18 Cyclobenzaprine [Flexeril] 5 mg PO TID PRN 11/04/15 11/24/18 Vortioxetine Hydrobromide 10 mg PO DAILY 11/04/15 11/24/18 [Trintellix] Butalb/Acetaminophen/Caffeine 2 cap PO TID PRN 08/09/17 11/24/18 [Fioricet 50-300-40 mg Capsule] rOPINIRole HCL [Requip] 1 mg PO DAILY 11/09/17 11/24/18 rOPINIRole HCL [Requip] 3 mg PO HS 11/09/17 11/24/18 Rivaroxaban [Xarelto] 10 mg PO DAILY 02/14/18 11/24/18 Amitriptyline HCl [Elavil] 50 mg PO HS 11/24/18 11/24/18 DULoxetine HCL [Cymbalta] 30 mg PO DAILY 11/24/18 11/24/18 DULoxetine HCL [Cymbalta] 60 mg PO HS 11/24/18 11/24/18 Furosemide [Lasix] 20 mg PO BID 11/24/18 11/24/18 Gabapentin 600 mg PO TID 11/24/18 11/24/18 HYDROcodone/APAP 10-325MG [[place] 1 tab PO BID 11/24/18 11/24/18 10-325] Metolazone [Zaroxolyn] 2.5 mg PO DAILY 11/24/18 11/24/18 Potassium Chloride ER [K-Dur 10] 10 meq PO DAILY 11/24/18 11/24/18 fentaNYL 25MCG/HR PATCH [[place] 1 patch TRANSDERM Q72H 11/24/18 11/24/18 25MCG/HR] rOPINIRole HCL [Requip] 3 mg PO DAILY@1200 11/24/18 11/24/18 Previous Rx's Medication Instructions Recorded Fluconazole [Diflucan] 150 mg PO ONCE #2 tab 11/24/18 Nitrofurantoin Monohyd/M-Cryst 100 mg PO Q12HR #10 cap 11/24/18 [Macrobid] Allergies Allergy/AdvReac Type Severity Reaction Status Date / Time cefprozil [From Cefzil] Allergy Unknown Verified 10/18/19 09:26 codeine Allergy Unknown Verified 10/18/19 09:26 Sulfa (Sulfonamide Allergy Rash/Hives Verified 10/18/19 09:26 Antibiotics) valdecoxib [From Bextra] Allergy Unknown Verified 10/18/19 09:26 metaxalone [From Skelaxin] AdvReac Nausea & Verified 10/18/19 09:26 Vomiting Review of Systems ROS Statement: Those systems with pertinent positive or pertinent negative responses have been documented in the HPI. ROS Other: All systems not noted in ROS Statement are negative. Past Medical History Past Medical History: Chest Pain / Angina, CVA/TIA, Deep Vein Thrombosis (DVT), Fibromyalgia, GERD/Reflux, GI Bleed, Memory Impairment, Myocardial Infarction ([place]), Osteoarthritis (OA), Pneumonia, Pulmonary Embolus (PE), Skin Disorder, Sleep Apnea/CPAP/BIPAP, Thyroid Disorder Additional Past Medical History / Comment(s): Stroke, TIA, and Hypothyroid. CHRONIC YEAST IN skin folds. Leakage of urine. Poor nutrition, pt states was told she had an [place] based on an old EKG ( never had an heartcath), frequent problems w/vomiting, states doens't have hypertension. Has been getting iron infusions for anemia in Procedures this week. neuorpathy, back pain, ANGINA, BLEEDING ULCERS, PLEURISY, OSTEROPEROSIS, MYFACIAL PAIN SYNDROME, SLEEP APNEA (DOES NOT USE CPAP). scoliosis Last Myocardial Infarction Date:: 2002 History of Any Multi-Drug Resistant Organisms: None Reported Past Surgical History: Bariatric Surgery, Hernia Repair, Hysterectomy, Orthopedic Surgery, Tubal Ligation Additional Past Surgical History / Comment(s): right rotator cuff repair AND REVISION, VENTRAL HERNIA REPAIR, HIATAL HERNIA REPAIR, LT KNEE ARTHROSCOPY, RECTOCELE, PERINEALPLASTY, GASTRIC BYPASS, Past Anesthesia/Blood Transfusion Reactions: Motion Sickness Past Psychological History: Anxiety, Depression Smoking Status: Never smoker Past Alcohol Use History: Rare Past Drug Use History: None Reported - Past Family History Sister(s) Family Medical History: Cancer General Exam - General Exam Comments Initial Comments: GENERAL: Patient is well-developed and well-nourished. Patient is nontoxic and well- hydrated and is in mild distress. ENT: Neck is soft and supple. No significant lymphadenopathy is noted. Oropharynx is clear. Moist mucous membranes. Neck has full range of motion without eliciting any pain. EYES: The sclera were anicteric and conjunctiva were pink and moist. Extraocular movements were intact and pupils were equal round and reactive to light. Eyelids were unremarkable. PULMONARY: Unlabored respirations. Good breath sounds bilaterally. No audible rales rhonchi or wheezing was noted. CARDIOVASCULAR: There is a regular rate and rhythm without any murmurs gallops or rubs. ABDOMEN: Soft and nontender with normal bowel sounds. SKIN: Skin is clear with no lesions or rashes and otherwise unremarkable. NEUROLOGIC: Patient is alert and oriented x3. Cranial nerves II through XII are grossly intact. Motor and sensory are also intact. Normal speech, volume and content. Symmetrical smile. MUSCULOSKELETAL: Normal extremities with adequate strength and full range of motion. Scant pedal edema LYMPHATICS: No significant lymphadenopathy is noted PSYCHIATRIC: Normal psychiatric evaluation. Limitations: no limitations Course Vital Signs 10/18/19 10/18/19 09:25 10:43 Temperature 98 F Pulse Rate 75 67 Respiratory 26 H 18 Rate Blood Pressure 156/88 144/91 O2 Sat by Pulse 97 99 Oximetry Medical Decision Making - Medical Decision Making EKG shows normal sinus rhythm at 76 bpm UT interval is 200 QRS is 80 QT interval 398 QTC is 447. Patient's EKG shows biphasic T waves in V2 through V5. - Lab Data Result diagrams: 10/18/19 10:07 07/17/20 10:07 Lab Results 10/18/19 10/18/19 10/18/19 Range/Units 10:07 10:07 10:07 WBC 7.7 (3.8-10.6) k/uL RBC 4.20 (3.80-5.40) m/uL Hgb 11.6 (11.4-16.0) gm/dL Hct 36.9 (34.0-46.0) % MCV 87.7 (80.0-100.0) fL MCH 27.6 (25.0-35.0) pg MCHC 31.5 (31.0-37.0) g/dL RDW 14.3 (11.5-15.5) % Plt Count 424 (150-450) k/uL Neutrophils % 71 % Lymphocytes % 18 % Monocytes % 6 % Eosinophils % 2 % Basophils % 0 % Neutrophils # 5.5 (1.3-7.7) k/uL Lymphocytes # 1.4 (1.0-4.8) k/uL Monocytes # 0.5 (0-1.0) k/uL Eosinophils # 0.2 (0-0.7) k/uL Basophils # 0.0 (0-0.2) k/uL PT 9.5 (9.0-12.0) sec INR 0.9 (<1.2) APTT 23.1 (22.0-30.0) sec Sodium 135 L (137-145) mmol/L Potassium 5.2 H (3.5-5.1) mmol/L Chloride 106 (98-107) mmol/L Carbon Dioxide 23 (22-30) mmol/L Anion Gap 6 mmol/L BUN 11 (7-17) mg/dL Creatinine 0.52 (0.52-1.04) mg/dL Est GFR (CKD-EPI)AfAm >90 (>60 ml/min/1.73 sqM) Est GFR (CKD-EPI)NonAf >90 (>60 ml/min/1.73 sqM) Glucose 85 (74-99) mg/dL Plasma Lactic Acid Steve (0.7-2.0) mmol/L Calcium 8.9 (8.4-10.2) mg/dL Magnesium 2.1 (1.6-2.3) mg/dL Total Bilirubin 0.6 (0.2-1.3) mg/dL AST 30 (14-36) U/L ALT 19 (4-34) U/L Alkaline Phosphatase 133 H (38-126) U/L Troponin I (0.000-0.034) ng/mL NT-Pro-B Natriuret Pep pg/mL Total Protein 6.5 (6.3-8.2) g/dL Albumin 3.8 (3.5-5.0) g/dL 10/18/19 10/18/19 10/18/19 Range/Units 10:07 10:07 10:07 WBC (3.8-10.6) k/uL RBC (3.80-5.40) m/uL Hgb (11.4-16.0) gm/dL Hct (34.0-46.0) % MCV (80.0-100.0) fL MCH (25.0-35.0) pg MCHC (31.0-37.0) g/dL RDW (11.5-15.5) % Plt Count (150-450) k/uL Neutrophils % % Lymphocytes % % Monocytes % % Eosinophils % % Basophils % % Neutrophils # (1.3-7.7) k/uL Lymphocytes # (1.0-4.8) k/uL Monocytes # (0-1.0) k/uL Eosinophils # (0-0.7) k/uL Basophils # (0-0.2) k/uL PT (9.0-12.0) sec INR (<1.2) APTT (22.0-30.0) sec Sodium (137-145) mmol/L Potassium (3.5-5.1) mmol/L Chloride (98-107) mmol/L Carbon Dioxide (22-30) mmol/L Anion Gap mmol/L BUN (7-17) mg/dL Creatinine (0.52-1.04) mg/dL Est GFR (CKD-EPI)AfAm (>60 ml/min/1.73 sqM) Est GFR (CKD-EPI)NonAf (>60 ml/min/1.73 sqM) Glucose (74-99) mg/dL Plasma Lactic Acid Steve 1.0 (0.7-2.0) mmol/L Calcium (8.4-10.2) mg/dL Magnesium (1.6-2.3) mg/dL Total Bilirubin (0.2-1.3) mg/dL AST (14-36) U/L ALT (4-34) U/L Alkaline Phosphatase (38-126) U/L Troponin I 0.076 H* (0.000-0.034) ng/mL NT-Pro-B Natriuret Pep 3780 pg/mL Total Protein (6.3-8.2) g/dL Albumin (3.5-5.0) g/dL Critical Care Time Critical Care Time: Yes Total Critical Care Time: 35 Disposition Clinical Impression: Unstable angina, Pulmonary edema Disposition: ADMITTED IP TO THIS HOSP Referrals: Edd Lee MD [Primary Care Provider] - 1-2 days Time of Disposition: 11:25
[2019-10-18 10:15] LABS: Basophils % (A) 0 %; Eosinophils # (A) 0.2 k/uL (0-0.7); Eosinophils % (A) 2 %; HCT 36.9 % (34.0-46.0); HGB 11.6 gm/dL (11.4-16.0); Lymphocytes # (A) 1.4 k/uL (1.0-4.8); Lymphocytes % (A) 18 %; MCH 27.6 pg (25.0-35.0); MCHC 31.5 g/dL (31.0-37.0); MCV 87.7 fL (80.0-100.0); Mean Platelet Volume 6.8; Monocytes # (A) 0.5 k/uL (0-1.0); Monocytes % (A) 6 %; Neutrophils # (A) 5.5 k/uL (1.3-7.7); Neutrophils % (A) 71 %; Platelet Count 424 k/uL (150-450); RDW 14.3 % (11.5-15.5); WBC 7.7 k/uL (3.8-10.6)
[2019-10-18 10:21] LABS: INR 0.9 (<1.2); Partial Thromboplastin Time 23.1 sec (22.0-30.0); Prothrombin Time 9.5 sec (9.0-12.0)
[2019-10-18 10:28] LABS: ALT 19 U/L (4-34); AST 30 U/L (14-36); African American GFR (CKD) >90 (>60 ml/min/1.73 sqM); Albumin 3.8 g/dL (3.5-5.0); Alkaline Phosphatase 133 U/L (38-126); Anion Gap 6 mmol/L; Blood Urea Nitrogen 11 mg/dL (7-17); Calcium 8.9 mg/dL (8.4-10.2); Carbon Dioxide 23 mmol/L (22-30); Chloride 106 mmol/L (98-107); Glucose 85 mg/dL (74-99); Magnesium 2.1 mg/dL (1.6-2.3); Non-African American GFR(CKD) >90 (>60 ml/min/1.73 sqM); Potassium 5.2 mmol/L (3.5-5.1); Sodium 135 mmol/L (137-145); Total Bilirubin 0.6 mg/dL (0.2-1.3); Total Protein 6.5 g/dL (6.3-8.2)
--- NOTE | 2019-10-18 10:37 | XR ---
EXAMINATION TYPE: XR chest 2V DATE OF EXAM: 10/18/2019 COMPARISON: 06/02/2019 INDICATION: Difficulty breathing TECHNIQUE: Frontal and lateral views of the chest are obtained. FINDINGS: The heart size is mildly prominent. The pulmonary vasculature is normal. Posterior infiltrate is present. Minimal posterior effusion may be present.. IMPRESSION: 1. Minimal posterior increased lung markings. Very minimal posterior pleural effusion may be present. Follow-up can be performed as clinically indicated.
[2019-10-18] MEDS ORDERED: ACETAMINOPHEN TAB 325 MG TAB PO STA (10:45)
[2019-10-18] MEDS ORDERED: HEPARIN SODIUM,PORCINE 5,000 UNIT/ML 1 ML VIAL IV ONE (11:22)
[2019-10-18] MEDS ORDERED: FUROSEMIDE 10 MG/ML 4 ML VIAL IV STA (11:22)
[2019-10-18] MEDS ORDERED: NITROGLYCERIN SL TABS 0.4 MG TAB SUBLINGUAL PRN (11:26)
[2019-10-18] MEDS: HEPARIN SOD,PORK IN 0.45% NACL 25,000 UNIT in 0.45% NACL 1 250ML.BAG IV SCH ×2 (12:05→23:27)
[2019-10-18] MEDS ORDERED: ONDANSETRON 4 MG/2 ML VIAL IVP PRN (13:15)
[2019-10-18] MEDS: ACETAMINOPHEN TAB 325 MG TAB PO PRN ×2 (14:41→23:21)
[2019-10-18] MEDS ORDERED: ETODOLAC 200 MG CAPSULE PO PRN (14:56)
[2019-10-18] MEDS ORDERED: CYCLOBENZAPRINE 5 MG TAB PO PRN (14:56)
[2019-10-18] MEDS ORDERED: DICLOFENAC SODIUM GEL 100 GM TUBE TOPICAL PRN (14:56)
--- NOTE | 2019-10-18 15:08 | P.HPIM ---
History of Present Illness Patient is 5-year-old female came to comply came into the hospital with complaints of a shortness of breath has been going on for last few days and much worse since last night patient never sleeps at on the bed. Patient does have hi story of sleep apnea is an obese female doesn't use any CPAP machine at home. Patient was recently diagnosed with the can start failure she'll give me a clear history of proximal nocturnal dyspnea either. Patient does have elevated BNP of around 3600 chest x-ray was suspicious for pulmonary edema. I'm unable to assess JVD. Patient doesn't have any significant leg edema patient was also complaining of chest pain in the retrosternal area no associated lightheadedness shortness of breath Diaphoresis. Patient just pain is nonpleuritic in nature doubt pain. Patient has exertional shortness of breath. Patient had a normal echocardiac name in 2018 but she was a told that she has heart failure 3 months ago. Patient takes Lasix orally at home. Patient has minimally elevated troponin of 0.09 and patient was started on Nitropatch still having some chest pain. Patient does have some T-wave inversions in lead V3 and V2 V4 V5 and V6 as well as lead 1. Patient will also comparing of cough with clear sputum production for last few days Review of Systems REVIEW OF SYSTEMS: CONSTITUTIONAL: No fever, no malaise, no fatigue. HEENT: No recent visual problems or hearing problems. Denied any sore throat. CARDIOVASCULAR: No orthopnea, PND, no palpitations, no syncope. PULMONARY: no cough, no hemoptysis. GASTROINTESTINAL: No diarrhea, no nausea, no vomiting, no abdominal pain. NEUROLOGICAL: No headaches, no weakness, no numbness. HEMATOLOGICAL: Denies any bleeding or petechiae. GENITOURINARY: Denies any burning micturition, frequency, or urgency. MUSCULOSKELETAL/RHEUMATOLOGICAL: Denies any joint pain, swelling, or any muscle pain. ENDOCRINE: Denies any polyuria or polydipsia. The rest of the 14-point review of systems is negative. Past Medical History Past Medical History: Chest Pain / Angina, CVA/TIA, Deep Vein Thrombosis (DVT), Fibromyalgia, GERD/Reflux, GI Bleed, Memory Impairment, Myocardial Infarction (ND), Osteoarthritis (OA), Pneumonia, Pulmonary Embolus (PE), Skin Disorder, Sleep Apnea/CPAP/BIPAP, Thyroid Disorder Additional Past Medical History / Comment(s): Stroke, TIA, and Hypothyroid. CHRONIC YEAST IN skin folds. Leakage of urine. Poor nutrition, pt states was told she had an ND based on an old EKG ( never had an heartcath), frequent problems w/vomiting, states doens't have hypertension. Has been getting iron infusions for anemia in Procedures this week. neuorpathy, back pain, ANGINA, BLEEDING ULCERS, PLEURISY, OSTEROPEROSIS, MYFACIAL PAIN SYNDROME, SLEEP APNEA (DOES NOT USE CPAP). scoliosis Last Myocardial Infarction Date:: 2002 History of Any Multi-Drug Resistant Organisms: None Reported Past Surgical History: Bariatric Surgery, Hernia Repair, Hysterectomy, Orthopedi c Surgery, Tubal Ligation Additional Past Surgical History / Comment(s): right rotator cuff repair AND REVISION, VENTRAL HERNIA REPAIR, HIATAL HERNIA REPAIR, LT KNEE ARTHROSCOPY, RECTOCELE, PERINEALPLASTY, GASTRIC BYPASS, Past Anesthesia/Blood Transfusion Reactions: Motion Sickness Past Psychological History: Anxiety, Depression Smoking Status: Never smoker Past Alcohol Use History: Rare Past Drug Use History: None Reported - Past Family History Sister(s) Family Medical History: Cancer Medications and Allergies Home Medications Medication Instructions Recorded Confirmed Type Levothyroxine Sodium [Synthroid] 88 mcg PO DAILY 08/09/13 10/18/19 History Cyclobenzaprine [Flexeril] 5 mg PO TID PRN 11/04/15 10/18/19 History Vortioxetine Hydrobromide 10 mg PO DAILY 11/04/15 10/18/19 History [Trintellix] rOPINIRole HCL [Requip] 3 mg PO DAILY@2100 11/09/17 10/18/19 History Metolazone [Zaroxolyn] 2.5 mg PO MOTH 11/24/18 10/18/19 History Amitriptyline HCl [Elavil] 75 mg PO HS 10/18/19 10/18/19 History Diclofenac Sodium Gel [Voltaren 2 gm TOPICAL QID PRN 10/18/19 10/18/19 History Gel] Diclofenac Sodium [Voltaren] 50 mg PO DAILY 10/18/19 10/18/19 History Ergocalciferol [Vitamin D2] 50,000 unit PO RALPH 10/18/19 10/18/19 History Esomeprazole Magnesium 40 mg PO DAILY 10/18/19 10/18/19 History Furosemide [Lasix] 40 mg PO BID 10/18/19 10/18/19 History Hydrocodone/Acetaminophen [Esmond 1 tab PO TID 10/18/19 10/18/19 History 7.5-325] Potassium Chloride ER [K-Dur 20] 20 meq PO BID 10/18/19 10/18/19 History Pregabalin [Lyrica] 200 mg PO TID 10/18/19 10/18/19 History Topiramate 50 mg PO BID 10/18/19 10/18/19 History Warfarin Sodium [Coumadin] 7.5 mg PO DAILY 10/18/19 10/18/19 History rOPINIRole HCL [Requip] 4 mg PO HS@2300 10/18/19 10/18/19 History Allergies Allergy/AdvReac Type Severity Reaction Status Date / Time cefprozil [From Cefzil] Allergy Unknown Verified 10/18/19 11:29 Sulfa (Sulfonamide Allergy Rash/Hives Verified 10/18/19 11:29 Antibiotics) valdecoxib [From Bextra] Allergy Unknown Verified 10/18/19 11:29 codeine AdvReac DIFFICULTY Verified 10/18/19 11:29 URINATING metaxalone [From Skelaxin] AdvReac Nausea & Verified 10/18/19 11:29 Vomiting Physical Exam Vitals: Vital Signs Temp Pulse Pulse Resp BP BP Pulse Ox 10/18/19 12:13 63 18 180/94 100 10/18/19 12:10 64 18 124/99 98 10/18/19 10:43 67 18 144/91 99 10/18/19 09:25 98 F 75 26 H 156/88 97 Intake and Output 10/18/19 10/18/19 10/18/19 06:59 14:59 22:59 Other: # Voids 1 Weight 121.563 kg PHYSICAL EXAMINATION: GENERAL: The patient is alert and oriented x3, not in any acute distress. Obese HEENT: Pupils are round and equally reacting to light. EOMI. No scleral icterus. No conjunctival pallor. Normocephalic, atraumatic. No pharyngeal erythema. No thyromegaly. CARDIOVASCULAR: S1 and S2 present. No murmurs, rubs, or gallops. PULMONARY: Chest is clear to auscultation, no wheezing or crackles. ABDOMEN: Soft, nontender, nondistended, normoactive bowel sounds. No palpable organomegaly. MUSCULOSKELETAL: No joint swelling or deformity. EXTREMITIES: No cyanosis, clubbing, or pedal edema. NEUROLOGICAL: Gross neurological examination did not reveal any focal deficits. SKIN: No rashes. Results CBC & Chem 7: 10/18/19 10:07 10/18/19 10:07 Labs: Abnormal Lab Results - Last 24 Hours (Table) 10/18/19 10/18/19 Range/Units 10:07 10:07 Sodium 135 L (137-145) mmol/L Potassium 5.2 H (3.5-5.1) mmol/L Alkaline Phosphatase 133 H (38-126) U/L Troponin I 0.076 H* (0.000-0.034) ng/mL Thrombosis Risk Factor Assmnt - Choose All That Apply Each Risk Factor Represents 2 Points: Age 61-74 years, Patient confined to bed Each Risk Factor Represents 3 Points: History of DVT/PE Other congenital or acquired thrombophilia - If yes, enter type in comment: No Thrombosis Risk Factor Assessment Total Risk Factor Score: 7 Thrombosis Risk Factor Assessment Level: High Risk Assessment and Plan Plan: Shortness of breath and chest pain: Possibly of congestive heart failure, patient will be continued on Lasix will obtain echocardiogram repeat basic metabolic profile tomorrow. Patient has minimally elevated troponin and patient was started on IV heparin and Coumadin is being held patient INR is 0.9. -Possibility of non-ST elevation microinfarction lipid 2 more sets of troponins cariology was consulted, patient has Nitropatch presently Obesity sleep apnea and doesn't use any CPAP machine at home -History of DVT in the past on Coumadin symptomatic and INR patient is presently on heparin which will be continued at sure whether patient is complaining with Coumadin. -For myalgia -CVAT in the past next and her gases. Infectious disease -PE in the past -Hypothyroidism -Obesity with sleep apnea. -Depression -Severe chronic back pain for which patient is on multiple medications which will be resumed -GI prophylaxis with a proton pump inhibitor For above-mentioned chronic medical problems patient will be resumed on appropriate home medications
[2019-10-18] MEDS: HYDROcodone/APAP 7.5-325MG 1 EACH TAB PO PRN (17:11)
[2019-10-18] MEDS: PREGABALIN 100 MG CAP PO SCH ×2 (17:12→20:05)
[2019-10-18] MEDS: NITROGLYCERIN OINT 1 INCH/GM PACKET TOPICAL SCH ×2 (18:38→23:34)
--- NOTE | 2019-10-18 18:45 | CT ---
EXAMINATION TYPE: CT chest angio for PE DATE OF EXAM: 10/18/2019 COMPARISON: 09/07/2011 HISTORY: Elevated d-dimer, shortness of breath. CT DLP: 703.6 mGycm Automated exposure control for dose reduction was used. CONTRAST: Performed with IV Contrast, patient injected with 100 mL of Isovue 370. Multiple axial sections were obtained from the diaphragm to the thoracic inlet with IV contrast and 3 -D post processed images. FINDINGS: There are small bilateral pleural effusions. Heart is borderline enlarged. There is no pericardial ef fusion. Thoracic aorta is intact. There is no aneurysm or dissection. There is no mediastinal adenopa thy. There is 1.5 cm lymph node at the right pulmonary hilum. There is normal contrast opacification of the pulmonary arteries. There are no filling defects. There is no pulmonary consolidation. The bony thorax is intact. There is hypertrophic spurring in the lowe r thoracic spine. There is neural stimulator in the mid thoracic spine. IMPRESSION: No evidence of pulmonary embolism. Mild right bronchial adenopathy. Bilateral small pleural effusions .
[2019-10-18] MEDS: AMITRIPTYLINE HCL 25 MG TAB PO SCH (20:04)
[2019-10-18] MEDS: TOPIRAMATE 25 MG TAB PO SCH (20:05)
[2019-10-18] MEDS ORDERED: rOPINIRole HCL 4 MG TABLET PO SCH (23:00)
[2019-10-18] MEDS ORDERED: HEPARIN SODIUM,PORCINE 5,000 UNIT/ML 1 ML VIAL IV PRN (23:08)
[2019-10-19] MEDS: LEVOTHYROXINE 88 MCG TAB PO SCH (05:56)
[2019-10-19] MEDS: NITROGLYCERIN OINT 1 INCH/GM PACKET TOPICAL SCH ×3 (05:56→14:33)
[2019-10-19] MEDS: PANTOPRAZOLE 40 MG TABLET PO SCH (05:56)
[2019-10-19] MEDS: HYDROcodone/APAP 7.5-325MG 1 EACH TAB PO PRN ×3 (05:57→23:54)
[2019-10-19] MEDS ORDERED: NITROGLYCERIN SL TABS 0.4 MG TAB SUBLINGUAL PRN (08:01)
[2019-10-19] MEDS ORDERED: ATORVASTATIN 80 MG TAB PO STA (08:01)
[2019-10-19] MEDS ORDERED: ALPRAZolam 0.25 MG TAB PO PRN (08:01)
[2019-10-19] MEDS: SODIUM CHLORIDE 0.9% 1,000 ML IV SCH ×2 (08:10→14:33)
[2019-10-19] MEDS: ACETAMINOPHEN TAB 325 MG TAB PO PRN (08:11)
[2019-10-19] MEDS: PREGABALIN 100 MG CAP PO SCH ×3 (08:11→23:53)
[2019-10-19] MEDS: TOPIRAMATE 25 MG TAB PO SCH ×2 (08:11→20:02)
[2019-10-19] MEDS: VORTIOXETINE HYDROBROMIDE 10 MG TABLET PO SCH (08:17)
[2019-10-19] MEDS ORDERED: ASPIRIN 325 MG TAB PO SCH (09:00)
[2019-10-19] MEDS: DICLOFENAC 50MG TAB PO PRN ×2 (09:14→23:55)
[2019-10-19 10:25] LABS: Basophils # (A) 0.1 k/uL (0-0.2); Basophils % (A) 1 %; Eosinophils # (A) 0.4 k/uL (0-0.7); Eosinophils % (A) 4 %; HCT 36.9 % (34.0-46.0); HGB 12.1 gm/dL (11.4-16.0); Lymphocytes # (A) 1.7 k/uL (1.0-4.8); Lymphocytes % (A) 16 %; MCH 28.7 pg (25.0-35.0); MCHC 32.8 g/dL (31.0-37.0); MCV 87.6 fL (80.0-100.0); Mean Platelet Volume 7.8; Monocytes # (A) 0.7 k/uL (0-1.0); Monocytes % (A) 7 %; Neutrophils # (A) 7.1 k/uL (1.3-7.7); Neutrophils % (A) 70 %; Platelet Count 363 k/uL (150-450); RBC 4.21 m/uL (3.80-5.40); RDW 14.4 % (11.5-15.5); WBC 10.2 k/uL (3.8-10.6)
[2019-10-19 10:47] LABS: African American GFR (CKD) >90 (>60 ml/min/1.73 sqM); Anion Gap 5 mmol/L; Blood Urea Nitrogen 10 mg/dL (7-17); Calcium 8.6 mg/dL (8.4-10.2); Carbon Dioxide 19 mmol/L (22-30); Chloride 110 mmol/L (98-107); Cholesterol 144 mg/dL (<200); Glucose 87 mg/dL (74-99); HDL Cholesterol 74 mg/dL (40-60); LDL Cholesterol,Calculated 54 mg/dL (0-99); Non-African American GFR(CKD) >90 (>60 ml/min/1.73 sqM); Potassium 5.3 mmol/L (3.5-5.1); Sodium 134 mmol/L (137-145); Triglycerides 80 mg/dL (<150)
[2019-10-19] MEDS ORDERED: VERAPAMIL 2.5 MG/ML 2 ML AMP ONE (10:54)
[2019-10-19] MEDS ORDERED: LIDOCAINE 1% INJ 10MG/ML (20 ML MDV) ONE (10:54)
[2019-10-19] MEDS ORDERED: HEPARIN SODIUM 1,000 UN/ML (10ML VL) ONE (10:54)
[2019-10-19] MEDS ORDERED: IV FLUID CONTINUATION 1,000 ML IV ONE (10:55)
[2019-10-19] MEDS ORDERED: MIDAZOLAM 2 MG/2 ML VIAL IV ONE (11:13)
[2019-10-19] MEDS ORDERED: LIDOCAINE 1% INJ 10MG/ML (20 ML MDV) SQ ONE (11:15)
[2019-10-19] MEDS: VERAPAMIL SYRINGE (5 MG/10 ML) INTRAARTER ONE ×2 (11:17→12:07)
[2019-10-19] MEDS: HEPARIN SODIUM 1,000 UN/ML (10ML VL) IV ONE ×2 (11:22→11:39)
[2019-10-19] MEDS ORDERED: HYDROmorphone 2 MG/ML 1 ML SYRINGE IV ONE ×2 (11:23)
[2019-10-19] MEDS ORDERED: HYDROmorphone 1 MG/ML 1 ML SYRINGE ONE (11:23)
[2019-10-19] MEDS ORDERED: HYDROmorphone 0.5 MG/0.5 ML SYRINGE IVP ONE (11:52)
[2019-10-19] MEDS ORDERED: IOPAMIDOL-370 100ML BTL INJ ONE ×2 (11:54→12:07)
[2019-10-19] MEDS ORDERED: BIVALIRUDIN BOLUS 250 MG/50 ML IV ONE (11:58)
[2019-10-19] MEDS ORDERED: BIVALIRUDIN 250 MG in SODIUM CHLORIDE 0.9% 50 ML IV ONE (11:58)
[2019-10-19] MEDS ORDERED: CLOPIDOGREL 75 MG TAB ONE (12:04)
[2019-10-19] MEDS ORDERED: NITROGLYCERIN 1000MCG/10ML SYRINGE INTRAARTER ONE (12:04)
[2019-10-19] MEDS ORDERED: CLOPIDOGREL 75 MG TAB PO ONE (12:05)
[2019-10-19] MEDS: ALPRAZolam 0.5 MG TAB PO PRN ×2 (14:08→21:32)
--- NOTE | 2019-10-19 14:21 | CC ---
CARDIAC CATHETERIZATION REPORT CARDIAC CATHETERIZATION AND PCI REPORT: DATE OF SERVICE: 10/19/2019 PROCEDURE: 1. Left heart catheterization and coronary angiography. 2. PTCA and stenting of a major diagonal branch with a drug-eluting stent. PERFORMED BY: Dr. Joanna Vick CLINICAL INFORMATION: Mrs. Marlin Veras is a 64-year-old lady who was admitted to the hospital with several nondescript symptoms including shortness of breath and chest tightness. Her troponin was elevated. EKG revealed precordial ST and T-wave abnormality and I recommended coronary angiography after evaluating her, talked to her by phone and suggested coronary angiography and possible intervention. I also reviewed the echo and noted that this could be an apical ballooning syndrome/takotsubo syndrome as well. The patient and her understood all details and wished to proceed with cardiac catheterization and possible PCI. PROCEDURE NOTE: Under local anesthesia and strict aseptic precautions, a 6-Danish introducer was placed in the right radial artery. Using a JR4 and JL3.5 catheters I performed coronary angiography and the same right Shannon catheter was used to check LV pressure but LV gram was not performed. This was a very difficult heart catheterization because of a bovine arch and extreme tortuosity in the ascending aorta. However, I was able to get the coronary angiography performed and then went on to perform PCI of the major diagonal branch of LAD. Following the procedure TR band was applied as per protocol and saturation of the fingers of the right hand was 94%. Patient tolerated the procedure well. Results and details were discussed with the patient as well as her . CARDIAC CATHETERIZATION FINDINGS: The left ventricular end-diastolic pressure was about 22 mmHg without any gradient across aortic valve. CORONARY ANGIOGRAPHY FINDINGS: RIGHT CORONARY ARTERY: Dominant vessel, no significant disease, distally bifurcates into PDA and PLV, has minor irregularities. LEFT MAIN CORONARY ARTERY: Patent disease-free vessel that bifurcates into LAD and circumflex. Both LAD and circumflex proximally are quite dilated, ectatic making the left main look smaller. LEFT ANTERIOR DESCENDING CORONARY ARTERY: Good caliber vessel extends along the anterior wall, gives off a large first diagonal which has 80-90% stenosis with haziness suggestive of thrombus. The LAD itself is free of significant disease, runs all the way to the apex supplying a sizable amount of myocardium. LEFT POSTERIOR CIRCUMFLEX CORONARY ARTERY: Very ectatic proximally vessel gives off a large obtuse marginal that divides into two branches, has minor irregularities and then another vessel runs in the AV groove. No significant disease. LV-gram was not performed. FINAL IMPRESSION: This patient has a right dominant system. No significant disease in the circumflex or LAD but the major diagonal has 80-90% stenosis with haziness and thrombus. Elevated end-diastolic pressure of 22 mmHg without any gradient across aortic valve. RECOMMENDATIONS: I recommended PCI of diagonal and performed this in the same setting. This patient's clinical picture is that of a takotsubo syndrome but there is significant diagonal disease. It is a good size diagonal in terms of caliber and distribution. I, therefore, advised PCI and proceeded in the same setting. PCI PROCEDURE DETAILS: I used a JL3.5 guide catheter and with a wire after some manipulation, I was able to get a decent seating of the catheter. A BMW J-tip wire was used to cross the lesion. Wire was kept distally. Without predilatation, 18 mm long 2.5 caliber Xience stent was deployed at 11 atmospheres. Patient had chest pain. No EKG changes. Excellent angiographic result was achieved without complication. The sheath was taken out and TR band applied as per protocol. Excellent hemostasis was achieved and saturation of the fingers of the right hand was 94%. Patient received Angiomax bolus and infusion. Also, received 600 mg of Plavix orally. Results were discussed with the patient and family. JEREMIE / AMADA: [id number] /
[2019-10-19] MEDS ORDERED: SODIUM CHLORIDE 0.9% 1,000 ML IV SCH (14:30)
--- NOTE | 2019-10-19 14:58 | ECHOF ---
Referral Reason:NSTEMI MEASUREMENTS -------- HEIGHT: 157.5 cm WEIGHT: 122.5 kg BP: RVIDd: 2.7 cm (< 3.3) IVSd: 0.9 cm (0.6 - 1.1) LVIDd: 5.3 cm (3.9 - 5.3) LVPWd: 0.8 cm (0.6 - 1.1) IVSs: 0.8 cm LVIDs: 4.4 cm LVPWs: 1.3 cm LAESV Index (A-L): 33.42 ml/m Ao Diam: 2.8 cm (2.0 - 3.7) AV Cusp: 1.8 cm (1.5 - 2.6) LA Diam: 3.4 cm (2.7 - 3.8) MV EXCURSION: 10.759 mm (> 18.000) MV EF SLOPE: 51 mm/s (70 - 150) EPSS: 1.3 cm MV E Rubin: 0.75 m/s MV DecT: 221 ms MV A Rubin: 0.54 m/s MV E/A Ratio: 1.38 RAP: 5.00 mmHg RVSP: 23.56 mmHg FINDINGS -------- Sinus rhythm. This was a technically adequate study. Left ventricular wall thickness is normal. Overall left ventricular systolic function is moderately impaired with, an EF between 35 - 40 %. Mid anteroseptal LV wall motion is hypokinetic. Apical anterior LV wall motion is hypokinetic. Apical lateral LV wall motion is hypokinetic. Apical in ferior LV wall motion is hypokinetic. Apical septum LV wall motion is hypokinetic. Consider Takats ubo Syndrome. The right ventricle is normal in size. LA is midly dilated 29-33ml/m2. The right atrial size is normal. Lumason used to rule out clot in apex. Interatrial and interventricular septum intact. The aortic valve is trileaflet and appears structurally normal. The mitral valve is normal. The mitral valve leaflets are mildly thickened. Mild mitral regurgita tion is present. The tricuspid valve appears structurally normal. Trace tricuspid regurgitation present. Right brianna tricular systolic pressure is normal at < 35 mmHg. There is no pulmonic regurgitation present. The aortic root size is normal. IVC Not well visulized. There is no pericardial effusion. CONCLUSIONS -------- 1. Left ventricular wall thickness is normal. 2. Overall left ventricular systolic function is moderately impaired with, an EF between 35 - 40 %. 3. Mid anteroseptal LV wall motion is hypokinetic. 4. Apical anterior LV wall motion is hypokinetic. 5. Apical lateral LV wall motion is hypokinetic. 6. Apical inferior LV wall motion is hypokinetic. 7. Apical septum LV wall motion is hypokinetic. 8. LA is midly dilated 29-33ml/m2. 9. The mitral valve leaflets are mildly thickened. 10. Mild mitral regurgitation is present. 11. Trace tricuspid regurgitation present. PRN OCCUPATIONAL THERAPIST: Linnette Quach RDCS
--- NOTE | 2019-10-19 15:06 | CONS ---
CONSULTATION This is a 64-year-old obese lady who was admitted to the hospital through the emergency room with several nondescript symptoms. She complained of having some shortness of breath and uncomfortable feeling for the last one week. She has been feeling weak, tired and exhausted. Her main complaint was shortness of breath and also had some nondescript chest pressure when she came in. After arrival, her symptoms seemed to have improved but she demonstrated significant precordial ST and T-wave changes suggestive of ischemia in the anterior wall and a had a troponin elevation that was suggestive of non-ST elevation MD. I saw her in the morning, evaluated her, talked to the patient, spoke to her . I recommended coronary angiography that was performed around 11:00 am. She has multiple comorbid conditions in the form of history of DVT and pulmonary embolism, details are unclear. She takes the Coumadin. The PT/INR is not therapeutic. She also has fibromyalgia, obstructive sleep apnea, uses CPAP; hypothyroidism, atypical chest pain as well. She is status post bariatric surgery, hernia repair, orthopedic surgery, hysterectomy, tubal ligation. MEDICATIONS: At home include Requip, Xarelto 10 mg daily. She initially told me she takes Coumadin but now she said she takes Xarelto. It is unclear. She also takes Zaroxolyn 2.5 mg daily, fentanyl patch, potassium 10 mEq daily, Lasix 20 mg daily. ALLERGIES: KEFZOL, CODEINE, SULFONAMIDE, AND SKELAXIN. Her EKG revealed sinus mechanism, precordial ST and T-wave abnormality suggestive of ischemia. Her D-dimer was elevated and she went on to have a CT angio that was negative for pulmonary embolism. PHYSICAL EXAMINATION: On examination, blood pressure is 118/70, pulse rate is 64 per minute, regular. HEENT unremarkable. Fundus was not examined by me. Neck is supple. No JVD. I do not hear a carotid bruit. There is no thyromegaly. Heart exam reveals S1, S2 with a short systolic murmur. Lungs reveal diminished air entry. Abdomen is soft, nontender. Lower extremities reveal diminished pulses. Central nervous system is grossly normal without focal deficits. IMPRESSION: 1. Non ST elevation myocardial infarction with anterior ST segment abnormality, elevated troponin and symptoms of chest tightness. 2. Obesity. 3. History of deep venous thrombosis, pulmonary embolism on Xarelto but patient is not sure if she takes Coumadin on Xarelto. History is rather sketchy. 4. She also has a history of sleep apnea syndrome, wears a CPAP. 5. Obesity. 6. Hypertension. 7. Hypercholesterolemia. RECOMMENDATIONS: I am recommending coronary angiography based on findings, intervention. We will continue heparin, hydrate her, give her an aspirin, proceed with coronary angiography and based on findings, intervention. I discussed my thoughts in detail with the patient. Spoke to her by phone as well. They both understand, agree and wish to proceed. MMODL / IJN: [id number] /
--- NOTE | 2019-10-19 16:09 | P.PN ---
Subjective 63-year-old present female came in with compensative short of breath found to have non-ST elevation microinfarction underwent cardiac catheterization and stenting of diagonal branch. Patient is also found to be in CHF exacerbation patient was started on Lasix. Patient the was started on 20 mg IV twice a day of Lasix by cardiology now. Patient is on IV fluids post cardiac catheterization which will be discontinued. Patient is a still requiring oxygen 2 L saturating well on 2 L at this time. Constitutional: Denied any fatigue denied any fever. Cardio vascular: denied any chest pain, palpitations Gastrointestinal denied any nausea vomiting Pulmonary: Still has some shortness of breath Neurologic denied any new focal deficits All inpatient medications were reviewed and appropriate changes in these medications as dictated in the interval history and assessment and plan. Objective - Vital Signs Vital signs: Vital Signs Temp 98.7 F 10/19/19 08:00 Pulse 64 10/19/19 08:00 Resp 18 10/19/19 08:00 BP 162/76 10/19/19 08:00 Pulse Ox 99 10/19/19 08:00 Intake & Output 10/18/19 10/19/19 10/19/19 18:59 06:59 18:59 Intake Total 124.444 479 Output Total 0 Balance 124.444 479 Weight 121.563 kg 122.9 kg Intake: IV 239 Intake, IV Titration 124.444 Amount Heparin Sod,Pork in 0.45% 124.444 NaCl 25,000 unit In 0.45 % NaCl 1 250ml.bag @ 8. 226 UNITS/KG/HR 10 mls/hr IV .Q24H [facility] Rx#: [id number] Oral 240 Output: Urine 0 Other: Voiding Method Toilet Toilet # Voids 1 1 - Exam PHYSICAL EXAMINATION: GENERAL: The patient is alert and oriented x3, not in any acute distress. Obese HEENT: Pupils are round and equally reacting to light. EOMI. No scleral icterus. No conjunctival pallor. Normocephalic, atraumatic. No pharyngeal erythema. No thyromegaly. CARDIOVASCULAR: S1 and S2 present. No murmurs, rubs, or gallops. PULMONARY: Chest is clear to auscultation, no wheezing or crackles. ABDOMEN: Soft, nontender, nondistended, normoactive bowel sounds. No palpable organomegaly. MUSCULOSKELETAL: No joint swelling or deformity. EXTREMITIES: No cyanosis, clubbing, or pedal edema. NEUROLOGICAL: Gross neurological examination did not reveal any focal deficits. SKIN: No rashes. - Labs CBC & Chem 7: 10/19/19 08:56 10/19/19 09:29 Labs: Abnormal Lab Results - Last 24 Hours (Table) 10/18/19 10/18/19 10/18/19 Range/Units 14:05 15:48 15:48 APTT (22.0-30.0) sec D-Dimer 0.96 H (<0.60) mg/L FEU Sodium (137-145) mmol/L Potassium (3.5-5.1) mmol/L Chloride (98-107) mmol/L Carbon Dioxide (22-30) mmol/L Creatinine (0.52-1.04) mg/dL Troponin I 0.088 H* 0.097 H* (0.000-0.034) ng/mL HDL Cholesterol (40-60) mg/dL 10/18/19 10/18/19 10/19/19 Range/Units 16:00 22:15 09:29 APTT 42.2 H 39.8 H (22.0-30.0) sec D-Dimer (<0.60) mg/L FEU Sodium 134 L (137-145) mmol/L Potassium 5.3 H (3.5-5.1) mmol/L Chloride 110 H (98-107) mmol/L Carbon Dioxide 19 L (22-30) mmol/L Creatinine 0.46 L (0.52-1.04) mg/dL Troponin I (0.000-0.034) ng/mL HDL Cholesterol 74 H (40-60) mg/dL 10/19/19 Range/Units 09:29 APTT (22.0-30.0) sec D-Dimer (<0.60) mg/L FEU Sodium (137-145) mmol/L Potassium (3.5-5.1) mmol/L Chloride (98-107) mmol/L Carbon Dioxide (22-30) mmol/L Creatinine (0.52-1.04) mg/dL Troponin I 0.037 H* (0.000-0.034) ng/mL HDL Cholesterol (40-60) mg/dL Assessment and Plan Plan: Shortness of breath and chest pain: Possibly of congestive heart failure, patient will be continued on Lasix echocardiogram showed EF of around 30-35% probably chronic diastolic dysfunction with acute exacerbation Non-ST elevation microinfarction: Status post cardiac catheterization and stenting of diagonal branch Obesity sleep apnea and doesn't use any CPAP machine at home -History of DVT patient is unsure whether she is on Coumadin on 0 alto patient will be started on xeralto starting tomorrow if agreeable by cardiology -Fibromyalgia -CVA in the past -Gastroesophageal reflux disease -PE in the past -Hypothyroidism -Obesity with sleep apnea. -Depression -Severe chronic back pain for which patient is on multiple medications which will be resumed -GI prophylaxis with a proton pump inhibitor For above-mentioned chronic medical problems patient will be resumed on appropriate home medications
[2019-10-19] MEDS: FUROSEMIDE 10 MG/ML 2 ML VIAL IV SCH (18:15)
[2019-10-19] MEDS ORDERED: IPRATROPIUM-ALBUTEROL 3 ML NEB INHALATION STA (18:24)
[2019-10-19] MEDS ORDERED: IPRATROPIUM-ALBUTEROL 3 ML NEB INHALATION SCH (20:00)
[2019-10-19] MEDS: ATORVASTATIN 40 MG TAB PO SCH (20:00)
[2019-10-19] MEDS: METOPROLOL TARTRATE 12.5 MG TAB PO SCH (20:01)
[2019-10-19] MEDS: LOSARTAN 50 MG TAB PO SCH (20:01)
[2019-10-19] MEDS: AMITRIPTYLINE HCL 25 MG TAB PO SCH (20:02)
[2019-10-20] MEDS: NITROGLYCERIN OINT 1 INCH/GM PACKET TOPICAL SCH ×2 (02:05→06:33)
[2019-10-20] MEDS: PANTOPRAZOLE 40 MG TABLET PO SCH (06:33)
[2019-10-20] MEDS: LEVOTHYROXINE 88 MCG TAB PO SCH (06:33)
[2019-10-20 07:43] LABS: HCT 31.5 % (34.0-46.0); HGB 10.1 gm/dL (11.4-16.0); Hypochromasia Moderate; MCH 28.5 pg (25.0-35.0); MCHC 31.9 g/dL (31.0-37.0); MCV 89.2 fL (80.0-100.0); Mean Platelet Volume 6.8; Platelet Count 363 k/uL (150-450); RBC 3.54 m/uL (3.80-5.40); RDW 14.2 % (11.5-15.5); WBC 7.5 k/uL (3.8-10.6)
[2019-10-20 07:52] LABS: African American GFR (CKD) >90 (>60 ml/min/1.73 sqM); Anion Gap 3 mmol/L; Blood Urea Nitrogen 14 mg/dL (7-17); Calcium 8.4 mg/dL (8.4-10.2); Carbon Dioxide 25 mmol/L (22-30); Chloride 106 mmol/L (98-107); Glucose 93 mg/dL (74-99); Non-African American GFR(CKD) >90 (>60 ml/min/1.73 sqM); Potassium 4.7 mmol/L (3.5-5.1); Sodium 134 mmol/L (137-145)
[2019-10-20] MEDS: TOPIRAMATE 25 MG TAB PO SCH ×2 (08:01→21:13)
[2019-10-20] MEDS: FUROSEMIDE 10 MG/ML 2 ML VIAL IV SCH (08:01)
[2019-10-20] MEDS: VORTIOXETINE HYDROBROMIDE 10 MG TABLET PO SCH (08:01)
[2019-10-20] MEDS: METOPROLOL TARTRATE 25 MG TAB PO SCH (08:01)
[2019-10-20] MEDS: ASPIRIN 81 MG PO SCH (08:01)
[2019-10-20] MEDS: CLOPIDOGREL 75 MG TAB PO SCH (08:01)
[2019-10-20] MEDS: PREGABALIN 100 MG CAP PO SCH ×3 (08:02→21:36)
[2019-10-20] MEDS: ALPRAZolam 0.5 MG TAB PO PRN (08:02)
[2019-10-20] MEDS: HEPARIN SODIUM,PORCINE 5,000 UNIT/ML 1 ML VIAL SQ SCH ×2 (08:57→21:13)
[2019-10-20] MEDS: IPRATROPIUM-ALBUTEROL 3 ML NEB INHALATION PRN ×2 (11:10→19:55)
--- NOTE | 2019-10-20 11:50 | P.DS ---
Providers Date of admission: 10/18/19 11:27 Attending physician: Haresh Porter Consults: 10/18/19 11:26 Consult Physician Urgent Consulting Provider: [facility] Consult Reason/Comments: Unstable angina Do you want consulting provider notified?: Yes Primary care physician: Edd Lee MD Hospital Course: 63-year-old present female came in with compensative short of breath found to h ave non-ST elevation microinfarction underwent cardiac catheterization and stenting of diagonal branch. Patient is also found to be in CHF exacerbation patient was started on Lasix. Patient the was started on 20 mg IV twice a day of Lasix by cardiology now. Patient is on IV fluids post cardiac catheterization which will be discontinued. Patient is a still requiring oxygen 2 L saturating well on 2 L at this time. 10/20/2019 Patient was in heart failure yesterday patient is euvolemic today patient is feeling well cardiology initially wanted to keep her one more day but patient wanted to go home discussed with cardiology cardiology is agreeable to discharge her. Patient apparently was on Coumadin although INR is only 0.9 patient had DVTs years ago. Since patient is to be in aspirin and Plavix are not reinitiating her back on Coumadin, we'll ask her to see her primary doctor Dr. Guerin as an outpatient and decide on continuation or discontinuation of anticoagulation. Did discuss diuretic dosing and cardiology is requiring 40 mg daily patient additionally takes metolazone 2 she didn't require this year all hold off on metolazone patient will be seen by cardiology as an outpatient and will decide on increasing or decreasing the diuretics. Patient had EF of around 35% appears to have acute systolic dysfunction with acute exacerbation of heart failure PHYSICAL EXAMINATION: GENERAL: The patient is alert and oriented x3, not in any acute distress. Obese HEENT: Pupils are round and equally reacting to light. EOMI. No scleral icterus. No conjunctival pallor. Normocephalic, atraumatic. No pharyngeal erythema. No thyromegaly. CARDIOVASCULAR: S1 and S2 present. No murmurs, rubs, or gallops. PULMONARY: Chest is clear to auscultation, no wheezing or crackles. ABDOMEN: Soft, nontender, nondistended, normoactive bowel sounds. No palpable organomegaly. MUSCULOSKELETAL: No joint swelling or deformity. EXTREMITIES: No cyanosis, clubbing, or pedal edema. NEUROLOGICAL: Gross neurological examination did not reveal any focal deficits. SKIN: No rashes. Assessment and Plan Plan: -Acute non-ST elevation microinfarction: Status post a cardiac catheterization and stenting to first diagonal branch Congestive heart failure acute systolic dysfunction echocardiogram showed EF of around 30-35% patient is presently euvolemic patient was treated for heart failure exacerbation Obesity sleep apnea and doesn't use any CPAP machine at home -History of DVT -Fibromyalgia -CVA in the past -Gastroesophageal reflux disease -PE in the past -Hypothyroidism -Obesity with sleep apnea. -Depression -Severe chronic back pain for which patient is on multiple medications Plan - Discharge Summary Discharge Rx Participant: No New Discharge Prescriptions: New Aspirin 81 mg PO DAILY #30 chew Losartan [Cozaar] 50 mg PO HS #30 tab Atorvastatin [Lipitor] 40 mg PO HS #30 tab Metoprolol Tartrate [Lopressor] 25 mg PO BID #30 tab Nitroglycerin Sl Tabs [Nitrostat] 0.4 mg SUBLINGUAL Q5M PRN #30 tab PRN Reason: Chest Pain Clopidogrel [Plavix] 75 mg PO DAILY #30 tab Continue Levothyroxine Sodium [Synthroid] 88 mcg PO DAILY Cyclobenzaprine [Flexeril] 5 mg PO TID PRN PRN Reason: Muscle Spasm Vortioxetine Hydrobromide [Trintellix] 10 mg PO DAILY rOPINIRole HCL [Requip] 3 mg PO DAILY@2100 Ergocalciferol [Vitamin D2 (DRISDOL)] 50,000 unit PO RALPH Diclofenac Sodium [Voltaren] 50 mg PO DAILY rOPINIRole HCL [Requip] 4 mg PO HS@2300 Pregabalin [Lyrica] 200 mg PO TID Hydrocodone/Acetaminophen [[place] 7.5-325] 1 tab PO TID Esomeprazole Magnesium 40 mg PO DAILY Topiramate 50 mg PO BID Diclofenac Sodium Gel [Voltaren Gel] 2 gm TOPICAL QID PRN PRN Reason: Pain Amitriptyline HCl [Elavil] 75 mg PO HS Diclofenac Potassium [Cataflam] 50 mg PO BID Changed Furosemide [Lasix] 40 mg PO DAILY #0 Discontinued Metolazone [Zaroxolyn] 2.5 mg PO MOTH Warfarin Sodium [Coumadin] 7.5 mg PO DAILY Potassium Chloride ER [K-Dur 20] 20 meq PO BID Discharge Medication List Levothyroxine Sodium [Synthroid] 88 mcg PO DAILY 08/09/13 [History] Cyclobenzaprine [Flexeril] 5 mg PO TID PRN 11/04/15 [History] Vortioxetine Hydrobromide [Trintellix] 10 mg PO DAILY 11/04/15 [History] rOPINIRole HCL [Requip] 3 mg PO DAILY@2100 11/09/17 [History] Amitriptyline HCl [Elavil] 75 mg PO HS 10/18/19 [History] Diclofenac Potassium [Cataflam] 50 mg PO BID 10/18/19 [History] Diclofenac Sodium Gel [Voltaren Gel] 2 gm TOPICAL QID PRN 10/18/19 [History] Diclofenac Sodium [Voltaren] 50 mg PO DAILY 10/18/19 [History] Ergocalciferol [Vitamin D2 (DRISDOL)] 50,000 unit PO RALPH 10/18/19 [History] Esomeprazole Magnesium 40 mg PO DAILY 10/18/19 [History] Hydrocodone/Acetaminophen [[place] 7.5-325] 1 tab PO TID 10/18/19 [History] Pregabalin [Lyrica] 200 mg PO TID 10/18/19 [History] Topiramate 50 mg PO BID 10/18/19 [History] rOPINIRole HCL [Requip] 4 mg PO HS@2300 10/18/19 [History] Aspirin 81 mg PO DAILY #30 chew 10/20/19 [Rx] Atorvastatin [Lipitor] 40 mg PO HS #30 tab 10/20/19 [Rx] Clopidogrel [Plavix] 75 mg PO DAILY #30 tab 10/20/19 [Rx] Furosemide [Lasix] 40 mg PO DAILY #0 10/20/19 [Rx] Losartan [Cozaar] 50 mg PO HS #30 tab 10/20/19 [Rx] Metoprolol Tartrate [Lopressor] 25 mg PO BID #30 tab 10/20/19 [Rx] Nitroglycerin Sl Tabs [Nitrostat] 0.4 mg SUBLINGUAL Q5M PRN #30 tab 10/20/19 [Rx] Follow up Appointment(s)/Referral(s): Edd Lee MD [Primary Care Provider] - 3 Days Jodie Vick MD [STAFF PHYSICIAN] - 1 Week Discharge Disposition: HOME SELF-CARE
--- NOTE | 2019-10-20 13:29 | PN ---
PROGRESS NOTE Mrs. Veras underwent stenting yesterday of major diagonal branch. She is doing better. She also has a takotsubo. I am recommending that we switch her from IV to oral Lasix tomorrow and discharge her tomorrow. She is doing better. No angina. I will discontinue oxygen, increase activity and see room-air O2 saturation. She will go home on aspirin and Plavix only. She has been on Coumadin for reasons unclear. I am not sure if she requests to be anticoagulation, since her DVT was a provoked DVT in 2011. Vitals are stable. No JVD. S1-S2 heard normally. Heart sounds are distant with short systolic murmur noted. Lungs reveal diminished air entry. Abdomen and lower extremity exam unchanged. Right radial cath site is clean and dry with a good pulse. EKG is unremarkable without any new acute changes. Labs are good. She can be discharged later today or early tomorrow. MMODL / IJN: [id number] /
[2019-10-20] MEDS: HYDROcodone/APAP 7.5-325MG 1 EACH TAB PO PRN (15:48)
[2019-10-20] MEDS: METOPROLOL TARTRATE 12.5 MG TAB PO SCH (17:32)
[2019-10-20] MEDS: LOSARTAN 50 MG TAB PO SCH (21:13)
[2019-10-20] MEDS: ATORVASTATIN 40 MG TAB PO SCH (21:13)
[2019-10-20] MEDS: FUROSEMIDE 10 MG/ML 4 ML VIAL IV SCH (21:14)
[2019-10-20] MEDS: AMITRIPTYLINE HCL 25 MG TAB PO SCH (21:35)
[2019-10-20] MEDS: DICLOFENAC 50MG TAB PO PRN (21:36)
[2019-10-21] MEDS: LEVOTHYROXINE 88 MCG TAB PO SCH (06:21)
[2019-10-21] MEDS: PANTOPRAZOLE 40 MG TABLET PO SCH (06:21)
[2019-10-21 08:14] VITALS: TEMP 97.7
[2019-10-21] MEDS: CLOPIDOGREL 75 MG TAB PO SCH (08:14)
[2019-10-21] MEDS: ASPIRIN 81 MG PO SCH (08:14)
[2019-10-21] MEDS: TOPIRAMATE 25 MG TAB PO SCH (08:14)
[2019-10-21] MEDS: HYDROcodone/APAP 7.5-325MG 1 EACH TAB PO PRN (08:14)
[2019-10-21] MEDS: HEPARIN SODIUM,PORCINE 5,000 UNIT/ML 1 ML VIAL SQ SCH (08:15)
[2019-10-21] MEDS: PREGABALIN 100 MG CAP PO SCH (08:15)
[2019-10-21] MEDS: METOPROLOL TARTRATE 25 MG TAB PO SCH (08:15)
[2019-10-21] MEDS: FUROSEMIDE 10 MG/ML 4 ML VIAL IV SCH (08:15)
[2019-10-21] MEDS: VORTIOXETINE HYDROBROMIDE 10 MG TABLET PO SCH (08:15)
[2019-10-21] MEDS ORDERED: SPIRONOLACTONE 25 MG TAB PO SCH (10:00)
[2019-10-21] MEDS ORDERED: FUROSEMIDE 40 MG TAB PO SCH ×2 (10:00→16:00)
--- NOTE | 2019-10-21 10:16 | P.DS ---
Providers Date of admission: 10/18/19 11:27 Expected date of discharge: 10/21/19 Attending physician: Edd Lee MD Consults: 10/18/19 11:26 Consult Physician Urgent Consulting Provider: [facility] Consult Reason/Comments: Unstable angina Do you want consulting provider notified?: Yes Primary care physician: Edd Lee MD Hospital Course: Final Diagnoses: Acute non-STEMI, status post cardiac catheterization with stenting of first diagonal branch, takotsubo syndrome. Acute CHF systolic dysfunction, EF 30-35%, secondary to the above Acute Hypoxic respiratory failure Obstructive sleep apnea, does not use CPAP at home Gastroesophageal reflux disease Hypothyroidism History of DVT, PEs Fibromyalgia History of CVA Morbid obesity, BMI 50.3 Depression Chronic back pain Hospital course: This is a 64-year-old female admitted with worsening dyspnea, found to have non-STEMI, underwent cardiac catheterization with stenting of the diagonal branch. Patient also treated for acute CHF exacerbation, diuresed well on Lasix IV push. Currently requiring 4 L nasal cannula O2 to maintain O2 sats in the 90s. Patient will be discharged home in a stable condition with guarded prognosis pending cardiology clearance, final DC recommendations. The impression and plan of care has been dictated as directed. : I performed a history and examination of this patient, discussed the same with the dictator. I agree with the dictator's note ,documented as a scribe. Any additional findings or plans will be noted. Patient Condition at Discharge: Stable Plan - Discharge Summary Discharge Rx Participant: No New Discharge Prescriptions: New Aspirin 81 mg PO DAILY #30 chew Losartan [Cozaar] 50 mg PO HS #30 tab Atorvastatin [Lipitor] 40 mg PO HS #30 tab Nitroglycerin Sl Tabs [Nitrostat] 0.4 mg SUBLINGUAL Q5M PRN #30 tab PRN Reason: Chest Pain Clopidogrel [Plavix] 75 mg PO DAILY #30 tab Ipratropium-Albuterol Nebulize [Duoneb 0.5 mg-3 mg/3 ml Soln] 3 ml INHALATION QID #120 dose Spironolactone [Aldactone] 25 mg PO DAILY #30 tab Metoprolol Tartrate [Lopressor] 12.5 mg PO 1700 #30 tab Metoprolol Tartrate 25 mg PO DAILY #30 tab Continue Levothyroxine Sodium [Synthroid] 88 mcg PO DAILY Cyclobenzaprine [Flexeril] 5 mg PO TID PRN PRN Reason: Muscle Spasm Vortioxetine Hydrobromide [Trintellix] 10 mg PO DAILY rOPINIRole HCL [Requip] 3 mg PO DAILY@2100 Ergocalciferol [Vitamin D2 (DRISDOL)] 50,000 unit PO RALPH Diclofenac Sodium [Voltaren] 50 mg PO DAILY rOPINIRole HCL [Requip] 4 mg PO HS@2300 Pregabalin [Lyrica] 200 mg PO TID Hydrocodone/Acetaminophen [[place] 7.5-325] 1 tab PO TID Esomeprazole Magnesium 40 mg PO DAILY Topiramate 50 mg PO BID Diclofenac Sodium Gel [Voltaren Gel] 2 gm TOPICAL QID PRN PRN Reason: Pain Amitriptyline HCl [Elavil] 75 mg PO HS Diclofenac Potassium [Cataflam] 50 mg PO BID Changed Furosemide [Lasix] 40 mg PO DAILY #0 Discontinued Metolazone [Zaroxolyn] 2.5 mg PO MOTH Warfarin Sodium [Coumadin] 7.5 mg PO DAILY Potassium Chloride ER [K-Dur 20] 20 meq PO BID Discharge Medication List Levothyroxine Sodium [Synthroid] 88 mcg PO DAILY 08/09/13 [History] Cyclobenzaprine [Flexeril] 5 mg PO TID PRN 11/04/15 [History] Vortioxetine Hydrobromide [Trintellix] 10 mg PO DAILY 11/04/15 [History] rOPINIRole HCL [Requip] 3 mg PO DAILY@2100 11/09/17 [History] Amitriptyline HCl [Elavil] 75 mg PO HS 10/18/19 [History] Diclofenac Potassium [Cataflam] 50 mg PO BID 10/18/19 [History] Diclofenac Sodium Gel [Voltaren Gel] 2 gm TOPICAL QID PRN 10/18/19 [History] Diclofenac Sodium [Voltaren] 50 mg PO DAILY 10/18/19 [History] Ergocalciferol [Vitamin D2 (DRISDOL)] 50,000 unit PO RALPH 10/18/19 [History] Esomeprazole Magnesium 40 mg PO DAILY 10/18/19 [History] Hydrocodone/Acetaminophen [[place] 7.5-325] 1 tab PO TID 10/18/19 [History] Pregabalin [Lyrica] 200 mg PO TID 10/18/19 [History] Topiramate 50 mg PO BID 10/18/19 [History] rOPINIRole HCL [Requip] 4 mg PO HS@2300 10/18/19 [History] Aspirin 81 mg PO DAILY #30 chew 10/20/19 [Rx] Atorvastatin [Lipitor] 40 mg PO HS #30 tab 10/20/19 [Rx] Clopidogrel [Plavix] 75 mg PO DAILY #30 tab 10/20/19 [Rx] Furosemide [Lasix] 40 mg PO DAILY #0 10/20/19 [Rx] Losartan [Cozaar] 50 mg PO HS #30 tab 10/20/19 [Rx] Nitroglycerin Sl Tabs [Nitrostat] 0.4 mg SUBLINGUAL Q5M PRN #30 tab 10/20/19 [Rx] Ipratropium-Albuterol Nebulize [Duoneb 0.5 mg-3 mg/3 ml Soln] 3 ml INHALATION QID #120 dose 10/21/19 [Rx] Metoprolol Tartrate 25 mg PO DAILY #30 tab 10/21/19 [Rx] Metoprolol Tartrate [Lopressor] 12.5 mg PO 1700 #30 tab 10/21/19 [Rx] Spironolactone [Aldactone] 25 mg PO DAILY #30 tab 10/21/19 [Rx] Follow up Appointment(s)/Referral(s): Jodie Vick MD [STAFF PHYSICIAN] - 1 Week Edd Lee MD [Primary Care Provider] - 3 Days Activity/Diet/Wound Care/Special Instructions: Confirm diuretics at discharge, pending cardiology clearance. Case management to arrange for both nebulizer and O2. Discharge Disposition: HOME WITH HOSPICE
--- NOTE | 2019-10-21 11:22 | ECHOF ---
Referral Reason:Post cardiac cath/stent to dia MEASUREMENTS -------- HEIGHT: 157.5 cm WEIGHT: 124.7 kg BP: 118/70 IVSd: 1.0 cm (0.6 - 1.1) LVIDd: 4.0 cm (3.9 - 5.3) LVPWd: 1.1 cm (0.6 - 1.1) IVSs: 1.5 cm LVIDs: 2.7 cm LVPWs: 1.4 cm FINDINGS -------- Sinus rhythm. Limited Study The left ventricular size is normal. Left ventricular wall thickness is normal. Overall left vent ricular systolic function is mildly impaired with, an EF between 45 - 50 %. Apical inferior LV wall motion is hypokinetic. Apical septum LV wall motion is hypokinetic. 5.0mg of Lumason was utilized for enhancement of images CONCLUSIONS -------- 1. Sinus rhythm. 2. Limited Study 3. The left ventricular size is normal. 4. Left ventricular wall thickness is normal. 5. Overall left ventricular systolic function is mildly impaired with, an EF between 45 - 50 %. 6. Apical inferior LV wall motion is hypokinetic. 7. Apical septum LV wall motion is hypokinetic. PSYCHIATRIC ASSISTANT: Marija Sanders RDCS
[2019-10-21 11:35] VITALS: BP 112/69; RESP 16
[2019-10-21] MEDS: IPRATROPIUM-ALBUTEROL 3 ML NEB INHALATION PRN (11:53)
[2019-10-21 12:12] VITALS: PULSE 65
--- NOTE | 2019-10-21 13:10 | P.PN ---
Subjective Progress Note Date: 10/21/19 This is a 64-year-old female who presented to the hospital with non-ST elevation myocardial infarction, she underwent angioplasty and stenting of the diagonal branch. Yesterday the patient was found to be in mild congestive cardiac failure and was initiated on IV Lasix. She diuresed well through the night last night and this morning feels well. She was seen and examined sitting up in her chair. HemoDynamically stable. On patient's initial echo that she had performed here revealed an ejection fraction of 35-40%. We did do a limited echocardiogram with Doppler study today which showed an ejection fraction of 45- 50%. We will add some Aldactone to the patient's medication regime, discontinue the IV Lasix and start the patient on Lasix 40 mg one tablet by mouth twice a day. From our perspective she may be able to be discharged home today. We'll make her a follow-up appointment to see Dr. KAMILAH Vick in the office post discharge. Objective - Vital Signs Vital signs: Vital Signs Temp 97.7 F 10/21/19 08:00 Pulse 68 10/21/19 12:05 Resp 16 10/21/19 11:25 BP 112/69 10/21/19 11:25 Pulse Ox 95 10/21/19 11:25 Intake & Output 10/20/19 10/21/19 10/21/19 18:59 06:59 18:59 Intake Total 3250 Output Total 1660 2600 800 Balance 1590 -2600 -800 Weight 124.8 kg Intake: Oral 3250 Output: Urine 1660 2600 800 Other: Voiding Method Toilet Toilet - Exam PHYSICAL EXAMINATION: GENERAL: 64-year-old female in no acute distress at the time of my examination HEENT: Head is atraumatic, normocephalic. Pupils equal, round. Sclera anicteric. Conjunctiva are clear. Mucous membranes of the mouth are moist. Neck is supple. There is no elevated jugular venous pressure. No carotid bruit is heard. HEART EXAMINATION: Heart S1, S2 normal. No murmur or gallop heard. CHEST EXAMINATION: Lungs are clear to auscultation and precussion. No chest wall tenderness is noted on palpation or with deep breathing. ABDOMEN: Soft, obese, nontender. Bowel sounds are heard. No organomegaly noted. EXTREMITIES: 2+ peripheral pulses with no evidence of peripheral edema and no calf tenderness noted. NEUROLOGIC patient is awake, alert and oriented 3 . - Labs CBC & Chem 7: 10/20/19 07:21 10/20/19 07:21 Assessment and Plan Plan: Assessment and plan #1 non-Q wave myocardial infarction status post angioplasty and stenting of the diagonal branch #2 systolic congestive heart failure acute on chronic #3 sleep apnea #4 obesity #5 hyperlipidemia #6 history of prior PE #7 history of CVA #8 hypothyroidism #9 hypertension Plan From cardiology's perspective, we will discontinue the IV Lasix and start the patient on Lasix 40 mg one tablet by mouth twice a day. Add Aldactone to the patient's medication regime. She may be able to be discharged home today, to follow-up with Dr. Darlin Vick in the office post discharge. DNP note has been reviewed, I agree with a documented findings and plan of care. Patient was seen and examined.
[2019-10-21] MEDS ORDERED: METOPROLOL TARTRATE 12.5 MG TAB PO SCH (17:00)
[2019-10-22] MEDS ORDERED: FUROSEMIDE 40 MG TAB PO SCH (09:00)
== END 2019-10-21 15:49 | disposition home health service (06) | DRG 246 ==
LOC: EC 09:22 → 3SCARD 11:27
PROVIDERS: ADMIT Family Medicine; ATTEND Family Medicine
PROC: B2111ZZ Fluoroscopy of Multiple Coronary Arteries using Low Osmolar Contrast (ICD-10-PCS; principal; 2019-10-19 10:21)
PROC: 4A023N7 Measurement of Cardiac Sampling and Pressure, Left Heart, Percutaneous Approach (ICD-10-PCS; principal; 2019-10-19 10:21)
PROC: 027034Z Dilation of Coronary Artery, One Artery with Drug-eluting Intraluminal Device, Percutaneous Approach (ICD-10-PCS; principal; 2019-10-19 10:21)
DX: I21.4 Non-ST elevation (NSTEMI) myocardial infarction (principal); I50.23 Acute on chronic systolic (congestive) heart failure; J96.01 Acute respiratory failure with hypoxia; Z68.43 Body mass index [BMI] 50.0-59.9, adult; E03.9 Hypothyroidism, unspecified; E66.01 Morbid (severe) obesity due to excess calories; E78.00 Pure hypercholesterolemia, unspecified; E78.5 Hyperlipidemia, unspecified; F32.9 Major depressive disorder, single episode, unspecified; F41.9 Anxiety disorder, unspecified; G47.33 Obstructive sleep apnea (adult) (pediatric); G89.29 Other chronic pain; I11.0 Hypertensive heart disease with heart failure; I25.10 Atherosclerotic heart disease of native coronary artery without angina pectoris; K21.9 Gastro-esophageal reflux disease without esophagitis; Z11.59 Encounter for screening for other viral diseases; M79.7 Fibromyalgia; I25.2 Old myocardial infarction; M41.9 Scoliosis, unspecified; Z79.01 Long term (current) use of anticoagulants; Z79.890 Hormone replacement therapy; Z79.899 Other long term (current) drug therapy; Z86.711 Personal history of pulmonary embolism; Z86.718 Personal history of other venous thrombosis and embolism; Z86.73 Personal history of transient ischemic attack (TIA), and cerebral infarction without residual deficits; Z90.710 Acquired absence of both cervix and uterus; Z98.84 Bariatric surgery status; M81.0 Age-related osteoporosis without current pathological fracture; Z88.5 Allergy status to narcotic agent; Z88.2 Allergy status to sulfonamides; Z88.8 Allergy status to other drugs, medicaments and biological substances; K31.819 Angiodysplasia of stomach and duodenum without bleeding; D50.0 Iron deficiency anemia secondary to blood loss (chronic)
CPT/HCPCS: 36415; 71046; 71275; 80048; 80053; 80061; 83605; 83735; 83880; 84443; 84484; 85025; 85027; 85379; 85610; 85730; 93005; 93306; 93308; 93458; 94640; 96365; 96375; 96376; 99291

== ENCOUNTER 2019-11-27 08:36 | Inpatient (IN) | payer MEDICARE ==
--- NOTE | 2019-11-27 08:58 | ED ---
General Adult HPI - General Chief complaint: Syncope Stated complaint: syncope Time Seen by Provider: 11/27/19 08:37 Source: patient, EMS, RN notes reviewed Mode of arrival: EMS Limitations: physical limitation - History of Present Illness Initial comments: Patient is a pleasant 64-year-old female presenting to the emergency department following a couple episode. Patient states she did not have a bowel movement but couple of days and then had a large bowel movement. Patient does not recall the episode well but believe she passed out. Patient did strike her head when leaning forward. Patient is on Coumadin. Patient has had some very mild chest discomfort rated 2/10 for the past few weeks. No change today. No radiation of chest discomfort. Discomfort feels like a mild headache. No dyspnea. No nausea vomiting. No abdominal pain. - Related Data Home Medications Medication Instructions Recorded Confirmed Levothyroxine Sodium [Synthroid] 88 mcg PO DAILY 08/09/13 11/27/19 Cyclobenzaprine [Flexeril] 5 mg PO TID PRN 11/04/15 11/27/19 Vortioxetine Hydrobromide 10 mg PO DAILY 11/04/15 11/27/19 [Trintellix] rOPINIRole HCL [Requip] 3 mg PO DAILY@2100 11/09/17 11/27/19 Amitriptyline HCl [Elavil] 75 mg PO HS 10/18/19 11/27/19 Diclofenac Potassium [Cataflam] 50 mg PO BID 10/18/19 11/27/19 Diclofenac Sodium Gel [Voltaren 2 gm TOPICAL QID PRN 10/18/19 11/27/19 Gel] Ergocalciferol [Vitamin D2 50,000 unit PO RALPH 10/18/19 11/27/19 (DRISDOL)] Esomeprazole Magnesium 40 mg PO DAILY 10/18/19 11/27/19 Hydrocodone/Acetaminophen [[place] 1 tab PO TID 10/18/19 11/27/19 7.5-325] Pregabalin [Lyrica] 200 mg PO TID 10/18/19 11/27/19 Topiramate 50 mg PO BID 10/18/19 11/27/19 rOPINIRole HCL [Requip] 4 mg PO HS@2300 10/18/19 11/27/19 Metoprolol Tartrate 12.5 mg PO DAILY@1700 11/27/19 11/27/19 Potassium Chloride [Klor-Con 20] 20 meq PO BID 11/27/19 11/27/19 Warfarin Sodium [Jantoven] 7.5 mg PO DAILY 11/27/19 11/27/19 metOLazone [Zaroxolyn] 2.5 mg PO DAILY 11/27/19 11/27/19 Previous Rx's Medication Instructions Recorded Aspirin 81 mg PO DAILY #30 chew 10/20/19 Atorvastatin [Lipitor] 40 mg PO HS #30 tab 10/20/19 Clopidogrel [Plavix] 75 mg PO DAILY #30 tab 10/20/19 Losartan [Cozaar] 50 mg PO HS #30 tab 10/20/19 Nitroglycerin Sl Tabs [Nitrostat] 0.4 mg SUBLINGUAL Q5M PRN #30 tab 10/20/19 Furosemide [Lasix] 40 mg PO BID@0900,1600 #60 tab 10/21/19 Ipratropium-Albuterol Nebulize 3 ml INHALATION QID #120 dose 10/21/19 [Duoneb 0.5 mg-3 mg/3 ml Soln] Metoprolol Tartrate [Lopressor] 25 mg PO DAILY #30 tab 10/21/19 Spironolactone [Aldactone] 25 mg PO DAILY #30 tab 10/21/19 Allergies Allergy/AdvReac Type Severity Reaction Status Date / Time cefprozil [From Cefzil] Allergy Unknown Verified 11/27/19 09:01 Sulfa (Sulfonamide Allergy Rash/Hives Verified 11/27/19 09:01 Antibiotics) valdecoxib [From Bextra] Allergy Unknown Verified 11/27/19 09:01 codeine AdvReac DIFFICULTY Verified 11/27/19 09:01 URINATING metaxalone [From Skelaxin] AdvReac Nausea & Verified 11/27/19 09:01 Vomiting Review of Systems ROS Statement: Those systems with pertinent positive or pertinent negative responses have been documented in the HPI. ROS Other: All systems not noted in ROS Statement are negative. Constitutional: Denies: fever Eyes: Denies: eye pain ENT: Denies: ear pain Respiratory: Denies: cough Cardiovascular: Reports: as per HPI Endocrine: Denies: fatigue Gastrointestinal: Denies: abdominal pain Genitourinary: Denies: dysuria Musculoskeletal: Denies: back pain Skin: Denies: rash Neurological: Denies: weakness Past Medical History Past Medical History: Chest Pain / Angina, CVA/TIA, Deep Vein Thrombosis (DVT), Fibromyalgia, GERD/Reflux, GI Bleed, Memory Impairment, Myocardial Infarction (ME), Osteoarthritis (OA), Pneumonia, Pulmonary Embolus (PE), Skin Disorder, Sleep Apnea/CPAP/BIPAP, Thyroid Disorder Additional Past Medical History / Comment(s): Stroke, TIA, and Hypothyroid. CHRONIC YEAST IN skin folds. Leakage of urine. Poor nutrition, pt states was told she had an ME based on an old EKG ( never had an heartcath), frequent probl ems w/vomiting, states doens't have hypertension. Has been getting iron infusions for anemia in Procedures this week. neuorpathy, back pain, ANGINA, BLEEDING ULCERS, PLEURISY, OSTEROPEROSIS, MYFACIAL PAIN SYNDROME, SLEEP APNEA (DOES NOT USE CPAP). scoliosis Last Myocardial Infarction Date:: 2002 History of Any Multi-Drug Resistant Organisms: None Reported Past Surgical History: Bariatric Surgery, Hernia Repair, Hysterectomy, Orthopedic Surgery, Tubal Ligation Additional Past Surgical History / Comment(s): right rotator cuff repair AND REVISION, VENTRAL HERNIA REPAIR, HIATAL HERNIA REPAIR, LT KNEE ARTHROSCOPY, RECTOCELE, PERINEALPLASTY, GASTRIC BYPASS, Past Anesthesia/Blood Transfusion Reactions: Motion Sickness Past Psychological History: Anxiety, Depression Smoking Status: Never smoker Past Alcohol Use History: Rare Past Drug Use History: None Reported - Past Family History Sister(s) Family Medical History: Cancer General Exam Limitations: physical limitation General appearance: alert, in no apparent distress Head exam: Present: normocephalic Eye exam: Present: normal appearance, PERRL, EOMI. Absent: nystagmus ENT exam: Present: other (Lip abrasion) Neck exam: Present: normal inspection. Absent: tenderness Respiratory exam: Present: normal lung sounds bilaterally Cardiovascular Exam: Present: regular rate, normal rhythm Expanded Peripheral pulses: 2+: Radial (R), Radial (L), Dorsalis Pedis (R), Dorsalis Pedis (L) GI/Abdominal exam: Present: soft. Absent: tenderness Extremities exam: Present: normal inspection Neurological exam: Present: alert, oriented X3, CN II-XII intact. Absent: motor sensory deficit Expanded Speech: Present: fluid speech Motor strength exam: RUE: 5, LUE: 5, RLE: 4, LLE: 4 Eye Response: (4) open spontaneously Motor Response: (6) obeys commands Verbal Response: (5) oriented Psychiatric exam: Present: normal affect, normal mood Skin exam: Present: normal color Course Vital Signs 11/27/19 11/27/19 11/27/19 08:39 09:50 10:43 Temperature 97.5 F L Pulse Rate 63 56 L 54 L Respiratory 18 16 18 Rate Blood Pressure 101/59 104/48 108/64 O2 Sat by Pulse 96 98 100 Oximetry EKG Findings - EKG Comments: EKG Findings:: Sinus bradycardia 56. First-degree AV block OR of 256. QRS 106. QT 502. QTC 44. Normal axis. Voltage criteria for LVH. Poor R-wave progression. No acute ST change. Medical Decision Making - Medical Decision Making Patient reevaluated and updated. Patient resting comfortably in bed. Dr. Melchor has been paged for admission of this patient. - Lab Data Result diagrams: 11/27/19 09:16 11/27/19 09:16 Lab Results 11/27/19 11/27/19 11/27/19 Range/Units 09:16 09:16 09:16 WBC 16.8 H (3.8-10.6) k/uL RBC 3.98 (3.80-5.40) m/uL Hgb 11.3 L (11.4-16.0) gm/dL Hct 33.7 L (34.0-46.0) % MCV 84.6 (80.0-100.0) fL MCH 28.4 (25.0-35.0) pg MCHC 33.6 (31.0-37.0) g/dL RDW 15.7 H (11.5-15.5) % Plt Count 338 (150-450) k/uL Neutrophils % 90 % Lymphocytes % 5 % Monocytes % 4 % Eosinophils % 0 % Basophils % 0 % Neutrophils # 15.2 H (1.3-7.7) k/uL Lymphocytes # 0.8 L (1.0-4.8) k/uL Monocytes # 0.6 (0-1.0) k/uL Eosinophils # 0.1 (0-0.7) k/uL Basophils # 0.0 (0-0.2) k/uL PT 9.3 (9.0-12.0) sec INR 0.9 (<1.2) APTT 22.0 (22.0-30.0) sec Sodium 123 L (137-145) mmol/L Potassium 2.9 L (3.5-5.1) mmol/L Chloride 79 L (98-107) mmol/L Carbon Dioxide 32 H (22-30) mmol/L Anion Gap 12 mmol/L BUN 64 H (7-17) mg/dL Creatinine 1.50 H (0.52-1.04) mg/dL Est GFR (CKD-EPI)AfAm 42 (>60 ml/min/1.73 sqM) Est GFR (CKD-EPI)NonAf 36 (>60 ml/min/1.73 sqM) Glucose 114 H (74-99) mg/dL Calcium 8.6 (8.4-10.2) mg/dL Total Bilirubin 0.6 (0.2-1.3) mg/dL AST 36 (14-36) U/L ALT 16 (4-34) U/L Alkaline Phosphatase 133 H (38-126) U/L Troponin I (0.000-0.034) ng/mL Total Protein 6.6 (6.3-8.2) g/dL Albumin 4.1 (3.5-5.0) g/dL Urine Color Urine Appearance (Clear) Urine pH (5.0-8.0) Ur Specific [place] (1.001-1.035) Urine Protein (Negative) Urine Glucose (UA) (Negative) Urine Ketones (Negative) Urine Blood (Negative) Urine Nitrite (Negative) Urine Bilirubin (Negative) Urine Urobilinogen (<2.0) mg/dL Ur Leukocyte Esterase (Negative) Urine RBC (0-5) /hpf Urine WBC (0-5) /hpf Ur Squamous Epith Cells (0-4) /hpf Urine Bacteria (None) /hpf Urine Mucus (None) /hpf 11/27/19 11/27/19 Range/Units 09:16 10:05 WBC (3.8-10.6) k/uL RBC (3.80-5.40) m/uL Hgb (11.4-16.0) gm/dL Hct (34.0-46.0) % MCV (80.0-100.0) fL MCH (25.0-35.0) pg MCHC (31.0-37.0) g/dL RDW (11.5-15.5) % Plt Count (150-450) k/uL Neutrophils % % Lymphocytes % % Monocytes % % Eosinophils % % Basophils % % Neutrophils # (1.3-7.7) k/uL Lymphocytes # (1.0-4.8) k/uL Monocytes # (0-1.0) k/uL Eosinophils # (0-0.7) k/uL Basophils # (0-0.2) k/uL PT (9.0-12.0) sec INR (<1.2) APTT (22.0-30.0) sec Sodium (137-145) mmol/L Potassium (3.5-5.1) mmol/L Chloride (98-107) mmol/L Carbon Dioxide (22-30) mmol/L Anion Gap mmol/L BUN (7-17) mg/dL Creatinine (0.52-1.04) mg/dL Est GFR (CKD-EPI)AfAm (>60 ml/min/1.73 sqM) Est GFR (CKD-EPI)NonAf (>60 ml/min/1.73 sqM) Glucose (74-99) mg/dL Calcium (8.4-10.2) mg/dL Total Bilirubin (0.2-1.3) mg/dL AST (14-36) U/L ALT (4-34) U/L Alkaline Phosphatase (38-126) U/L Troponin I 0.012 (0.000-0.034) ng/mL Total Protein (6.3-8.2) g/dL Albumin (3.5-5.0) g/dL Urine Color Light Yellow Urine Appearance Clear (Clear) Urine pH 5.0 (5.0-8.0) Ur Specific [place] 1.006 (1.001-1.035) Urine Protein Negative (Negative) Urine Glucose (UA) Negative (Negative) Urine Ketones Negative (Negative) Urine Blood Trace H (Negative) Urine Nitrite Negative (Negative) Urine Bilirubin Negative (Negative) Urine Urobilinogen <2.0 (<2.0) mg/dL Ur Leukocyte Esterase Negative (Negative) Urine RBC <1 (0-5) /hpf Urine WBC <1 (0-5) /hpf Ur Squamous Epith Cells <1 (0-4) /hpf Urine Bacteria Rare H (None) /hpf Urine Mucus Rare H (None) /hpf - Radiology Data Radiology results: report reviewed (Computed tomography scan of the brain reveals motion artifact versus subdural hematoma. Repeat computed tomography scan without evidence of subdural.), image reviewed (Chest x-ray shows no acute process.) Disposition Clinical Impression: Syncope, Acute renal insufficiency, Hyponatremia Disposition: ADMITTED IP TO THIS [facility] Condition: Serious Is patient prescribed a controlled substance at d/c from ED?: No Referrals: Edd Lee MD [Primary Care Provider] - 1-2 days Decision Time: 11:13
[2019-11-27 09:25] LABS: Basophils % (A) 0 %; Eosinophils # (A) 0.1 k/uL (0-0.7); Eosinophils % (A) 0 %; HCT 33.7 % (34.0-46.0); HGB 11.3 gm/dL (11.4-16.0); Lymphocytes # (A) 0.8 k/uL (1.0-4.8); Lymphocytes % (A) 5 %; MCH 28.4 pg (25.0-35.0); MCHC 33.6 g/dL (31.0-37.0); MCV 84.6 fL (80.0-100.0); Mean Platelet Volume 7.4; Monocytes # (A) 0.6 k/uL (0-1.0); Monocytes % (A) 4 %; Neutrophils # (A) 15.2 k/uL (1.3-7.7); Neutrophils % (A) 90 %; Platelet Count 338 k/uL (150-450); RBC 3.98 m/uL (3.80-5.40); RDW 15.7 % (11.5-15.5); WBC 16.8 k/uL (3.8-10.6)
[2019-11-27 09:44] LABS: INR 0.9 (<1.2); Prothrombin Time 9.3 sec (9.0-12.0)
[2019-11-27 09:48] LABS: Albumin 4.1 g/dL (3.5-5.0); Calcium 8.6 mg/dL (8.4-10.2); Potassium 2.9 mmol/L (3.5-5.1); Total Bilirubin 0.6 mg/dL (0.2-1.3); Total Protein 6.6 g/dL (6.3-8.2)
--- NOTE | 2019-11-27 09:56 | CT ---
EXAMINATION TYPE: CT brain wo con DATE OF EXAM: 11/27/2019 COMPARISON: 09/04/2019 HISTORY: Syncope CT DLP: 1129.[address] of the brain was performed. Patient motion limits examination. There is curvilinear increased attenuation extra-axial right frontal region identified on images 30 t hrough 33. I suspect this reflects motion artifact rather than subdural hematoma however I cannot exc lude subdural hematoma. Consider repeat imaging if felt to be indicated. The ventricles, basal cisterns and sulci overlying the cerebral convexities demonstrate mild enlargem ent. There is no evidence for sulcal effacement. There is decreased attenuation about the periventricular white matter and deep white matter of both c erebral hemispheres, compatible with chronic small vessel ischemia. Differential diagnosis does inclu de demyelination. No mass effects are seen.No midline shift. Osseous calvarium is intact. Posterior left temporal scalp hematoma. If symptoms persist consider MRI. IMPRESSION: 1. There is curvilinear increased attenuation extra-axial right frontal region identified on images 3 0 through 33. I suspect this reflects motion artifact rather than subdural hematoma however I cannot exclude subdural hematoma. Consider repeat imaging if felt to be indicated.
--- NOTE | 2019-11-27 10:01 | XR ---
EXAMINATION TYPE: XR chest 2V DATE OF EXAM: 11/27/2019 COMPARISON: 10/18/2019 HISTORY: Shortness of breath TECHNIQUE: Frontal and lateral views of the chest are obtained. FINDINGS: Scattered senescent parenchymal changes noted. Hyperinflation compatible with COPD. No evidence for infiltrate. No evidence for atelectasis. Heart size is stable. Mediastinal structures are stable and grossly unremarkable. No evidence for hilar prominence. Degenerative changes dorsal spine. IMPRESSION: 1. No evidence for acute pulmonary disease.
[2019-11-27] MEDS ORDERED: MORPHINE SULFATE 4 MG/ML SYRINGE IV STA (10:17)
[2019-11-27] MEDS ORDERED: ONDANSETRON 4 MG/2 ML VIAL IVP STA (10:17)
[2019-11-27 10:40] LABS: Appearance,Urine Clear (Clear); Bacteria,Urine Rare /hpf; Bilirubin,Urine Negative (Negative); Blood,Urine Trace (Negative); Color,Urine Light Yellow; Glucose,Urine (UA) Negative (Negative); Ketones,Urine Negative (Negative); Leukocyte Esterase,Urine Negative (Negative); Mucus,Urine Rare /hpf; Nitrite,Urine Negative (Negative); Protein,Urine Negative (Negative); RBC,Urine <1 /hpf (0-5); Specific Gravity,Urine 1.006 (1.001-1.035); Squamous Epithelial Cell,Urine <1 /hpf (0-4); Urobilinogen,Urine <2.0 mg/dL (<2.0); WBC,Urine <1 /hpf (0-5)
--- NOTE | 2019-11-27 11:00 | CT ---
EXAMINATION TYPE: CT brain wo con DATE OF EXAM: 11/27/2019 COMPARISON: From earlier in the day HISTORY: Syncope CT DLP: 1094.[address] of the brain was performed. Current study confirms that prior extra-axial increased attenuation was related to motion. There is n o evidence for subdural hematoma. The ventricles, basal cisterns and sulci overlying the cerebral convexities demonstrate mild enlargem ent. There is no evidence for intracranial hemorrhage or sulcal effacement. There is decreased attenuation about the periventricular white matter and deep white matter of both c erebral hemispheres, compatible with chronic small vessel ischemia. Differential diagnosis does inclu de demyelination. No mass effects are seen.No midline shift. Osseous calvarium is intact. Posterior left temporal scalp hematoma. If symptoms persist consider MRI. IMPRESSION: 1. Age related atrophic and chronic small vessel ischemic change without acute intracranial process s een at this time. 2.Current study confirms that prior extra-axial increased attenuation was related to motion. There is no evidence for subdural hematoma.
[2019-11-27] MEDS ORDERED: ONDANSETRON 4 MG/2 ML VIAL IVP PRN (11:13)
[2019-11-27] MEDS ORDERED: NALOXONE 0.4 MG/ML 1 ML VIAL IV PRN (11:13)
[2019-11-27] MEDS ORDERED: POTASSIUM CHLORIDE 20 MEQ in WATER FOR INJECTION 1 100ML.BAG IVPB STA (11:22)
[2019-11-27] MEDS ORDERED: POTASSIUM CHLORIDE ER 20 MEQ TAB.ER PO STA (11:22)
[2019-11-27] MEDS: SODIUM CHLORIDE 0.9% 1,000 ML IV SCH (11:32)
[2019-11-27] MEDS: ACETAMINOPHEN TAB 325 MG TAB PO PRN ×2 (11:32→18:14)
[2019-11-27] MEDS ORDERED: WARFARIN 7.5 MG TAB PO SCH (18:00)
[2019-11-27] MEDS: FUROSEMIDE 40 MG TAB PO SCH (18:14)
[2019-11-27] MEDS: POTASSIUM CHLORIDE ER 20 MEQ TAB.ER PO SCH (20:28)
[2019-11-27] MEDS: ATORVASTATIN 40 MG TAB PO SCH (20:28)
[2019-11-27] MEDS: PREGABALIN 100 MG CAP PO SCH (20:28)
[2019-11-27] MEDS: TOPIRAMATE 25 MG TAB PO SCH (20:28)
[2019-11-27] MEDS: LOSARTAN 50 MG TAB PO SCH (20:28)
[2019-11-27] MEDS: CYCLOBENZAPRINE 5 MG TAB PO PRN (20:29)
[2019-11-27] MEDS ORDERED: AMITRIPTYLINE HCL 25 MG TAB PO SCH (21:00)
[2019-11-27] MEDS: rOPINIRole HCL 4 MG TABLET PO SCH (22:58)
[2019-11-28] MEDS: ACETAMINOPHEN TAB 325 MG TAB PO PRN ×3 (01:39→18:47)
[2019-11-28] MEDS: SODIUM CHLORIDE 0.9% 1,000 ML IV SCH ×2 (01:39→20:11)
[2019-11-28] MEDS: LEVOTHYROXINE 88 MCG TAB PO SCH (06:08)
[2019-11-28 06:49] LABS: Basophils % (A) 0 %; Eosinophils # (A) 0.2 k/uL (0-0.7); Eosinophils % (A) 2 %; HCT 35.5 % (34.0-46.0); HGB 11.4 gm/dL (11.4-16.0); Lymphocytes # (A) 1.6 k/uL (1.0-4.8); Lymphocytes % (A) 19 %; MCH 27.2 pg (25.0-35.0); MCHC 32.3 g/dL (31.0-37.0); MCV 84.5 fL (80.0-100.0); Mean Platelet Volume 7.1; Monocytes # (A) 0.6 k/uL (0-1.0); Monocytes % (A) 7 %; Neutrophils # (A) 5.9 k/uL (1.3-7.7); Neutrophils % (A) 70 %; Platelet Count 287 k/uL (150-450); RDW 15.7 % (11.5-15.5); WBC 8.4 k/uL (3.8-10.6)
[2019-11-28] MEDS: TOPIRAMATE 25 MG TAB PO SCH ×2 (09:07→20:07)
[2019-11-28] MEDS: PANTOPRAZOLE 40 MG TABLET PO SCH (09:07)
[2019-11-28] MEDS: ASPIRIN 81 MG PO SCH (09:07)
[2019-11-28] MEDS: FUROSEMIDE 40 MG TAB PO SCH (09:07)
[2019-11-28] MEDS: CYCLOBENZAPRINE 5 MG TAB PO PRN ×2 (09:07→20:07)
[2019-11-28] MEDS: METOPROLOL TARTRATE 25 MG TAB PO SCH (09:07)
[2019-11-28] MEDS: CLOPIDOGREL 75 MG TAB PO SCH (09:07)
[2019-11-28] MEDS: POTASSIUM CHLORIDE ER 20 MEQ TAB.ER PO SCH ×2 (09:07→20:07)
[2019-11-28] MEDS: PREGABALIN 100 MG CAP PO SCH ×3 (09:08→20:07)
[2019-11-28] MEDS: SPIRONOLACTONE 25 MG TAB PO SCH (09:08)
[2019-11-28] MEDS: VORTIOXETINE HYDROBROMIDE 10 MG TABLET PO SCH (09:08)
[2019-11-28 09:21] LABS: Albumin 3.2 g/dL (3.5-5.0); Calcium 8.4 mg/dL (8.4-10.2); Total Bilirubin 0.6 mg/dL (0.2-1.3); Total Protein 5.6 g/dL (6.3-8.2)
[2019-11-28 09:22] LABS: Potassium 3.5 mmol/L (3.5-5.1)
--- NOTE | 2019-11-28 13:07 | P.CRDCN ---
History of Present Illness Consult date: 11/28/19 History of present illness: CHIEF COMPLAINT: Syncope HISTORY OF PRESENT ILLNESS: 64-year-old female with a history of coronary artery disease, COPD, hypertension, hyperlipidemia, DVT/PE who presented to the hospital via EMS secondary to syncope. Patient follows with Dr. Charles in the office. Patient recently underwent cardiac catheterization with Dr. Vick on 10/19/2019 revealing 80-90% occlusion of the diagonal and patient had a drug- eluting stent placed at that time. Patient reports she was sitting on the toilet yesterday and had been constipated for a few days. She states she was having large amounts of diarrhea on the toilet yesterday. The next thing she remembers is EMS being in her bathroom. She does not recall any other events. She reports shortness of breath and chest pains with exertion since having her cardiac cath last month. Patient currently denies chest pain. She wears home O2 at 4 L. Patient reports she had a "mini mental breakdown" a few days ago and decided to stop taking her medications. DIAGNOSTICS: EKG reveals sinus bradycardia with first-degree AV block Chest xray negative for acute process. Laboratory data: WBC 8.4. Hemoglobin 11.4. Platelet count 287. Sodium 123. Potassium 3.5. BUN 47. Creatinine 0.82. Troponin 0.012. 0.012. 0.017. Current home cardiac medications include Zaroxolyn 2.5 mg daily, warfarin 7.5 mg daily, Plavix 75 mg daily, aspirin 75 mg daily, Lipitor 40 mg daily, Lasix 40 mg twice a day, Aldactone 25 mg daily, metoprolol 25 mg in the morning and 12.5 mg in the afternoon, and Cozaar 50 mg daily Echocardiogram completed in October 2019 revealed ejection fraction 35-40%, LV wall hypokinesis, mild mitral regurgitation and trace tricuspid regurgitation REVIEW OF SYSTEMS: CONSTITUTIONAL: Denies fever or chills. HEENT: Denies blurred vision, vision changes, or eye pain. Denies hemoptysis CARDIOVASCULAR: Reports chest pain with exertion. Denies orthopnea, PND or palpitations RESPIRATORY: Reports shortness of breath with exertion. GASTROINTESTINAL: Denies abdominal pain. Denies nausea or vomiting. HEMATOLOGIC: Denies bleeding disorders. GENITOURINARY: Denies any blood in urine. SKIN: Denies pruitis. Denies rash. PHYSICAL EXAM: VITAL SIGNS: Reviewed. GENERAL: Well-developed in no acute distress. HEENT: Head is normocephalic. Pupils are equal, round. Sclerae anicteric. Mucous membranes of the mouth are moist. Neck supple. No JVD or thyromegaly LUNGS: Respirations even and unlabored. Lungs essentially clear to auscultation bilaterally. HEART: Regular rate and rhythm. S1 and S2 heard. ABDOMEN: Soft. Nondistended. Nontender. EXTREMITIES: Normal range of motion. No clubbing or cyanosis. Peripheral pulses intact. No lower extremity edema NEUROLOGIC: Awake and alert. Oriented x 3. ASSESSMENT: 1. Possible syncope 2. Coronary artery disease, with recent cardiac cath performed in October 2019 with drug-eluting stent to the diagonal 3. Hyperlipidemia 4. Hypertension 5. History of DVT/PE, on long-term anticoagulation with Coumadin 6. Subtherapeutic INR, secondary to patient not taking medication 7. COPD, on home O2 8. Acute kidney injury, resolved PLAN: -Continue current cardiac medications -Orthostatics performed and were negative -No need to repeat echocardiogram as this was performed last month -Further recommendations pending patient's course Nurse practitioner note has been reviewed by physician. Signing provider agrees with the documented findings, assessment, and plan of care. 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 Last Myocardial Infarction Date:: 2002 History of Any Multi-Drug Resistant Organisms: None Reported Past Surgical History: Bariatric Surgery, Hernia Repair, Hysterectomy, Orthopedic Surgery, Tubal Ligation Additional Past Surgical History / Comment(s): 10/19/19 PCI with stent, EGDs, colonoscopy/benign polyps, gastric bypass with revision, ventral and hiatal hernia repair, bladder suspension, R rotator curr repair/revision, L knee arthroscopy, rectocele, perinealplasty, Past Anesthesia/Blood Transfusion Reactions: Motion Sickness Smoking Status: Never smoker - Past Family History Mother Family Medical History: Coronary Artery Disease (CAD), Eye Disorder Additional Family Medical History / Comment(s): Mother is 91 yrs old Father Family Medical History: Myocardial Infarction ([place]) Additional Family Medical History / Comment(s): Father of a massive [place] at the age of 53 yrs. Sister(s) Family Medical History: Cancer Medications and Allergies Home Medications Medication Instructions Recorded Confirmed Type Levothyroxine Sodium [Synthroid] 88 mcg PO DAILY 08/09/13 11/27/19 History Cyclobenzaprine [Flexeril] 5 mg PO TID PRN 11/04/15 11/27/19 History Vortioxetine Hydrobromide 10 mg PO DAILY 11/04/15 11/27/19 History [Trintellix] rOPINIRole HCL [Requip] 3 mg PO DAILY@2100 11/09/17 11/27/19 History Amitriptyline HCl [Elavil] 75 mg PO HS 10/18/19 11/27/19 History Diclofenac Potassium [Cataflam] 50 mg PO BID 10/18/19 11/27/19 History Diclofenac Sodium Gel [Voltaren 2 gm TOPICAL QID PRN 10/18/19 11/27/19 History Gel] Ergocalciferol [Vitamin D2 50,000 unit PO RALPH 10/18/19 11/27/19 History (DRISDOL)] Esomeprazole Magnesium 40 mg PO DAILY 10/18/19 11/27/19 History Hydrocodone/Acetaminophen [[place] 1 tab PO TID 10/18/19 11/27/19 History 7.5-325] Pregabalin [Lyrica] 200 mg PO TID 10/18/19 11/27/19 History Topiramate 50 mg PO BID 10/18/19 11/27/19 History rOPINIRole HCL [Requip] 4 mg PO HS@2300 10/18/19 11/27/19 History Aspirin 81 mg PO DAILY #30 chew 10/20/19 11/27/19 Rx Atorvastatin [Lipitor] 40 mg PO HS #30 tab 10/20/19 11/27/19 Rx Clopidogrel [Plavix] 75 mg PO DAILY #30 tab 10/20/19 11/27/19 Rx Losartan [Cozaar] 50 mg PO HS #30 tab 10/20/19 11/27/19 Rx Nitroglycerin Sl Tabs [Nitrostat] 0.4 mg SUBLINGUAL Q5M PRN #30 tab 10/20/19 11/27/19 Rx Furosemide [Lasix] 40 mg PO BID@0900,1600 #60 tab 10/21/19 11/27/19 Rx Ipratropium-Albuterol Nebulize 3 ml INHALATION QID #120 dose 10/21/19 11/27/19 Rx [Duoneb 0.5 mg-3 mg/3 ml Soln] Metoprolol Tartrate [Lopressor] 25 mg PO DAILY #30 tab 10/21/19 11/27/19 Rx Spironolactone [Aldactone] 25 mg PO DAILY #30 tab 10/21/19 11/27/19 Rx Metoprolol Tartrate 12.5 mg PO DAILY@1700 11/27/19 11/27/19 History Potassium Chloride [Klor-Con 20] 20 meq PO BID 11/27/19 11/27/19 History Warfarin Sodium [Jantoven] 7.5 mg PO DAILY 11/27/19 11/27/19 History metOLazone [Zaroxolyn] 2.5 mg PO DAILY 11/27/19 11/27/19 History Allergies Allergy/AdvReac Type Severity Reaction Status Date / Time cefprozil [From Cefzil] Allergy Unknown Verified 11/27/19 09:01 Sulfa (Sulfonamide Allergy Rash/Hives Verified 11/27/19 09:01 Antibiotics) valdecoxib [From Bextra] Allergy Unknown Verified 11/27/19 09:01 codeine AdvReac DIFFICULTY Verified 11/27/19 09:01 URINATING metaxalone [From Skelaxin] AdvReac Nausea & Verified 11/27/19 09:01 Vomiting Physical Exam Vitals: Vital Signs Temp Pulse Pulse Pulse Pulse Pulse Resp 11/28/19 09:00 97.6 F 58 L 64 64 55 L 20 11/28/19 04:04 98.0 F 58 L 18 11/27/19 23:56 97.8 F 65 16 11/27/19 21:11 98.6 F 66 18 11/27/19 16:00 58 L 58 H 11/27/19 12:02 50 L 18 11/27/19 10:43 97.5 F L 54 L 18 11/27/19 09:50 56 L 16 BP BP BP BP BP Pulse Ox 11/28/19 09:00 104/57 132/66 99/50 98 11/28/19 04:04 116/56 98 11/27/19 23:56 91/46 98 11/27/19 21:11 127/59 94 L 11/27/19 16:00 123/81 100 11/27/19 12:02 106/68 98 11/27/19 10:43 108/64 100 11/27/19 09:50 104/48 98 Intake and Output 11/27/19 11/28/19 11/28/19 22:59 06:59 14:59 Intake Total 1128 636 Balance 1128 636 Intake: Oral 1128 636 Other: # Voids 1 1 1 Weight 120.8 kg Results 11/28/19 06:11 11/28/19 08:44 Cardiac Enzymes 11/27/19 11/27/19 11/27/19 Range/Units 09:16 09:16 13:02 AST 36 (14-36) U/L Troponin I 0.012 <0.012 (0.000-0.034) ng/mL 11/27/19 11/28/19 Range/Units 15:18 08:44 AST 38 H (14-36) U/L Troponin I 0.017 (0.000-0.034) ng/mL Coagulation 11/27/19 11/28/19 Range/Units 09:16 06:11 PT 9.3 10.0 (9.0-12.0) sec APTT 22.0 (22.0-30.0) sec CBC 11/28/19 Range/Units 06:11 WBC 8.4 (3.8-10.6) k/uL RBC 4.20 (3.80-5.40) m/uL Hgb 11.4 (11.4-16.0) gm/dL Hct 35.5 (34.0-46.0) % Plt Count 287 (150-450) k/uL Comprehensive Metabolic Panel 11/27/19 11/28/19 Range/Units 09:16 08:44 Sodium 123 L 123 L (137-145) mmol/L Potassium 2.9 L 3.5 (3.5-5.1) mmol/L Chloride 79 L 84 L (98-107) mmol/L Carbon Dioxide 32 H 28 (22-30) mmol/L BUN 64 H 47 H (7-17) mg/dL Creatinine 1.50 H 0.82 (0.52-1.04) mg/dL Glucose 114 H 132 H (74-99) mg/dL Calcium 8.6 8.4 (8.4-10.2) mg/dL AST 36 38 H (14-36) U/L ALT 16 15 (4-34) U/L Alkaline Phosphatase 133 H 96 (38-126) U/L Total Protein 6.6 5.6 L (6.3-8.2) g/dL Albumin 4.1 3.2 L (3.5-5.0) g/dL Current Medications Generic Name Dose Route Start Last Admin Trade Name Freq PRN Reason Stop Dose Admin Acetaminophen 650 mg 11/27/19 11:13 11/28/19 06:08 Tylenol Tab PO 650 mg Q6HR PRN Administration Mild Pain or Fever > 100.5 Amitriptyline HCl 75 mg 11/27/19 21:00 11/27/19 20:29 Elavil PO Not Given HS AMBIKA Aspirin 81 mg 11/28/19 09:00 11/28/19 09:07 Aspirin PO 81 mg DAILY AMBIKA Administration Atorvastatin Calcium 40 mg 11/27/19 21:00 11/27/19 20:28 Lipitor PO 40 mg HS AMBIKA Administration Clopidogrel Bisulfate 75 mg 11/28/19 09:00 11/28/19 09:07 Plavix PO 75 mg DAILY AMBIKA Administration Cyclobenzaprine HCl 5 mg 11/27/19 16:16 11/28/19 09:07 Flexeril PO 5 mg TID PRN Administration Muscle Spasm Furosemide 40 mg 11/27/19 16:16 11/28/19 09:07 Lasix PO 40 mg BID@0900,1600 AMBIKA Administration Sodium Chloride 1,000 mls @ 75 mls/hr 11/27/19 11:15 11/28/19 01:39 Saline 0.9% IV 75 mls/hr .[id number] AMBIKA Administration Levothyroxine Sodium 88 mcg 11/28/19 06:30 11/28/19 06:08 Synthroid PO 88 mcg 0630 AMBIKA Administration Losartan Potassium 50 mg 11/27/19 21:00 11/27/19 20:28 Cozaar PO 50 mg HS AMBIKA Administration Metoprolol Tartrate 25 mg 11/28/19 09:00 11/28/19 09:07 Lopressor PO 25 mg DAILY AMBIKA Administration Naloxone HCl 0.2 mg 11/27/19 11:13 Narcan IV Q2M PRN Opioid Reversal Ondansetron HCl 4 mg 11/27/19 11:13 Zofran IVP Q8HR PRN Nausea And Vomiting Pantoprazole Sodium 40 mg 11/28/19 09:00 11/28/19 09:07 Protonix PO 40 mg DAILY AMBIKA Administration Potassium Chloride 20 meq 11/27/19 21:00 11/28/19 09:07 K-Dur 20 PO 20 meq BID AMBIKA Administration Pregabalin 200 mg 11/27/19 22:00 11/28/19 09:08 Lyrica PO 200 mg TID AMBIKA Administration Ropinirole HCl 4 mg 11/27/19 23:00 11/27/19 22:58 Requip PO 4 mg HS@2300 AMBIKA Administration Ropinirole HCl 3 mg 11/27/19 21:00 11/27/19 20:28 Requip PO 3 mg DAILY@2100 AMBIKA Administration Spironolactone 25 mg 11/28/19 09:00 11/28/19 09:08 Aldactone PO 25 mg DAILY AMBIKA Administration Topiramate 50 mg 11/27/19 21:00 11/28/19 09:07 Topamax PO 50 mg BID AMBIKA Administration Vortioxetine 10 mg 11/28/19 09:00 11/28/19 09:08 Trintellix PO 10 mg DAILY AMBIKA Administration Warfarin Sodium 7.5 mg 11/27/19 18:00 11/27/19 22:58 Coumadin PO 7.5 mg DAILY@1800 AMBIKA Administration Protocol Intake and Output 11/27/19 11/28/19 11/28/19 22:59 06:59 14:59 Intake Total 1128 636 Balance 1128 636 Intake: Oral 1128 636 Other: # Voids 1 1 1 Weight 120.8 kg 11/28/19 06:11 11/28/19 08:44
--- NOTE | 2019-11-28 15:22 | P.NPCON ---
History of Present Illness - Reason for Consult hyponatremia - History of Present Illness Reason for consultation: Hyponatremia History of present illness: Patient is a 64-year-old female seen in renal consultation for hyponatremia. Sodium level was 123 on admission and is stable at 123 as of this morning. She is maintained on normal saline at 75 mL an hour. Creatinine was 1.5 on admission and 0.82 today. Patient presented to the hospital by the EMS after has been followed down in the bathroom. Patient states she developed diarrhea last night and subsequently fell and hit her head on the ground. She was found by her about 5-6 hours later with and called EMS. Blood pressure stable. Oral intake has been poor the last few days. No history of malignancy. Denies drinking excessive amounts of fluids. She was taking Lasix 40 mg orally twice daily at home along with Aldactone 25 mg and Zaroxolyn daily. She was also on losartan. Additionally she was also taking Cataflam twice daily. She has been voiding. No hematuria or dysuria. Denies any significant edema. No acute changes noted on brain CT. No evidence of fluid overload on chest x-ray. Denies fever or chills. No cough. Currently awake and alert. Vital signs are stable. General: The patient appeared well nourished and normally developed. HEENT: Head exam is unremarkable. Neck is without jugular venous distension. LUNGS: Breath sounds decreased. HEART: Rate and Rhythm are regular. ABDOMEN: Soft, nontender. Obese. EXTREMITITES: No clubbing, cyanosis, or edema. 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 Last Myocardial Infarction Date:: 2002 History of Any Multi-Drug Resistant Organisms: None Reported Past Surgical History: Bariatric Surgery, Hernia Repair, Hysterectomy, Orthopedic Surgery, Tubal Ligation Additional Past Surgical History / Comment(s): 10/19/19 PCI with stent, EGDs, colonoscopy/benign polyps, gastric bypass with revision, ventral and hiatal hernia repair, bladder suspension, R rotator curr repair/revision, L knee arthroscopy, rectocele, perinealplasty, Past Anesthesia/Blood Transfusion Reactions: Motion Sickness Smoking Status: Never smoker - Past Family History Mother Family Medical History: Coronary Artery Disease (CAD), Eye Disorder Additional Family Medical History / Comment(s): Mother is 91 yrs old Father Family Medical History: Myocardial Infarction ([place]) Additional Family Medical History / Comment(s): Father of a massive [place] at the age of 53 yrs. Sister(s) Family Medical History: Cancer Medications and Allergies Home Medications Medication Instructions Recorded Confirmed Type Levothyroxine Sodium [Synthroid] 88 mcg PO DAILY 08/09/13 11/27/19 History Cyclobenzaprine [Flexeril] 5 mg PO TID PRN 11/04/15 11/27/19 History Vortioxetine Hydrobromide 10 mg PO DAILY 11/04/15 11/27/19 History [Trintellix] rOPINIRole HCL [Requip] 3 mg PO DAILY@2100 11/09/17 11/27/19 History Amitriptyline HCl [Elavil] 75 mg PO HS 10/18/19 11/27/19 History Diclofenac Potassium [Cataflam] 50 mg PO BID 10/18/19 11/27/19 History Diclofenac Sodium Gel [Voltaren 2 gm TOPICAL QID PRN 10/18/19 11/27/19 History Gel] Ergocalciferol [Vitamin D2 50,000 unit PO RALPH 10/18/19 11/27/19 History (DRISDOL)] Esomeprazole Magnesium 40 mg PO DAILY 10/18/19 11/27/19 History Hydrocodone/Acetaminophen [[place] 1 tab PO TID 10/18/19 11/27/19 History 7.5-325] Pregabalin [Lyrica] 200 mg PO TID 10/18/19 11/27/19 History Topiramate 50 mg PO BID 10/18/19 11/27/19 History rOPINIRole HCL [Requip] 4 mg PO HS@2300 10/18/19 11/27/19 History Aspirin 81 mg PO DAILY #30 chew 10/20/19 11/27/19 Rx Atorvastatin [Lipitor] 40 mg PO HS #30 tab 10/20/19 11/27/19 Rx Clopidogrel [Plavix] 75 mg PO DAILY #30 tab 10/20/19 11/27/19 Rx Losartan [Cozaar] 50 mg PO HS #30 tab 10/20/19 11/27/19 Rx Nitroglycerin Sl Tabs [Nitrostat] 0.4 mg SUBLINGUAL Q5M PRN #30 tab 10/20/19 11/27/19 Rx Furosemide [Lasix] 40 mg PO BID@0900,1600 #60 tab 10/21/19 11/27/19 Rx Ipratropium-Albuterol Nebulize 3 ml INHALATION QID #120 dose 10/21/19 11/27/19 Rx [Duoneb 0.5 mg-3 mg/3 ml Soln] Metoprolol Tartrate [Lopressor] 25 mg PO DAILY #30 tab 10/21/19 11/27/19 Rx Spironolactone [Aldactone] 25 mg PO DAILY #30 tab 10/21/19 11/27/19 Rx Metoprolol Tartrate 12.5 mg PO DAILY@1700 11/27/19 11/27/19 History Potassium Chloride [Klor-Con 20] 20 meq PO BID 11/27/19 11/27/19 History Warfarin Sodium [Jantoven] 7.5 mg PO DAILY 11/27/19 11/27/19 History metOLazone [Zaroxolyn] 2.5 mg PO DAILY 11/27/19 11/27/19 History Allergies Allergy/AdvReac Type Severity Reaction Status Date / Time cefprozil [From Cefzil] Allergy Unknown Verified 11/27/19 09:01 Sulfa (Sulfonamide Allergy Rash/Hives Verified 11/27/19 09:01 Antibiotics) valdecoxib [From Bextra] Allergy Unknown Verified 11/27/19 09:01 codeine AdvReac DIFFICULTY Verified 11/27/19 09:01 URINATING metaxalone [From Skelaxin] AdvReac Nausea & Verified 11/27/19 09:01 Vomiting Physical Exam Vitals: Vital Signs Temp Pulse Pulse Pulse Pulse Resp BP 11/28/19 12:00 96.7 F L 55 L 20 153/56 11/28/19 09:00 97.6 F 58 L 64 64 55 L 20 11/28/19 04:04 98.0 F 58 L 18 116/56 11/27/19 23:56 97.8 F 65 16 91/46 11/27/19 21:11 98.6 F 66 18 127/59 11/27/19 16:00 58 L 58 H 123/81 BP BP BP Pulse Ox 11/28/19 12:00 96 11/28/19 09:00 104/57 132/66 99/50 98 11/28/19 04:04 98 11/27/19 23:56 98 11/27/19 21:11 94 L 11/27/19 16:00 100 Intake and Output 11/28/19 11/28/19 11/28/19 06:59 14:59 22:59 Intake Total 636 Balance 636 Intake: Oral 636 Other: # Voids 1 1 Weight 120.8 kg Results - Lab Results Most recent lab results Calcium 8.4 mg/dL (8.4-10.2) 11/28/19 08:44 11/28/19 06:11 11/28/19 08:44 Assessment and Plan Plan: Assessment: 1. Hyponatremia. Currently appears euvolemic. Etiology is diuretics and nonsteroidal use. 2. Acute kidney injury mostly prerenal improved with IV hydration. 3. Hypokalemia secondary to diuresis. Improved posterior placement. Rule out magnesium deficiency as well. 4. Syncopal episode possibly vasovagal with component of hypovolemia. Orthostatic vital signs noted. 5. Chronic systolic CHF with ejection fraction of 45-50%. Plan: Maintain normal saline at 75 mL an hour for now. 1200 mL fluid restriction. Encouraged oral intake, particularly protein. Check urine sodium and urine and serum osmolality. Repeat sodium level at 5 PM. Check TSH and uric acid level. Thank you for the consultation. I will continue to follow the patient with you during her hospital stay.
[2019-11-28] MEDS: HYDROcodone/APAP 7.5-325MG 1 EACH TAB PO PRN (15:34)
[2019-11-28] MEDS: WARFARIN 10 MG TAB PO SCH (18:44)
[2019-11-28] MEDS: rOPINIRole HCL 4 MG TABLET PO SCH (20:07)
[2019-11-28] MEDS: LOSARTAN 50 MG TAB PO SCH (20:07)
[2019-11-28] MEDS: ATORVASTATIN 40 MG TAB PO SCH (20:07)
--- NOTE | 2019-11-28 22:57 | P.HPIM ---
History of Present Illness H&P Date: 11/28/19 Chief Complaint: syncope Marlin Veras is a 64 yo F with PMH CAD, recent stenting last month, diastolic CHF, DVT/PE who presented to the ED via EMS after a syncopal event at home. Pt notes that had been constipated the past few days, she woke up at 2 am the day of admission with diarrhea, she apparently passed out on the toilet and was found by her significant other at a 8 am. She had apparently stopped taking many of her medications for a few days as she had been feeling overwhelmed and that she was on too much medicine. On presentation vitals stable, WBC 16.8k, Na 123, Cr 1.5. EKG stable, CT head negative. Review of Systems All systems: negative Constitutional: Reports weakness, Denies chills, Denies fever Eyes: denies blurred vision, denies pain Ears, nose, mouth and throat: Denies headache, Denies sore throat Cardiovascular: Reports dyspnea on exertion, Reports lightheadedness, Denies chest pain, Denies shortness of breath Respiratory: Denies cough Gastrointestinal: Denies abdominal pain, Denies diarrhea, Denies nausea, Denies vomiting Genitourinary: Denies dysuria, Denies hematuria Musculoskeletal: Denies myalgias Integumentary: Denies pruritus, Denies rash Neurological: Denies numbness, Denies weakness Psychiatric: Denies anxiety, Denies depression Endocrine: Denies fatigue, Denies weight change Past Medical History Past Medical History: Asthma, Coronary Artery Disease (CAD), Chest Pain / Angina, Heart Failure, COPD, CVA/TIA, Deep Vein Thrombosis (DVT), Fibromyalgia, GERD/Reflux, GI Bleed, Hearing Disorder / Deafness, Hyperlipidemia, Hypertension, Memory Impairment, Myocardial Infarction (ME), Osteoarthritis (OA), Pneumonia, Pulmonary Embolus (PE), Respiratory Disorder, Seizure Disorder, Skin Disorder, Sleep Apnea/CPAP/BIPAP, Thyroid Disorder Additional Past Medical History / Comment(s): 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 Last Myocardial Infarction Date:: 2002 History of Any Multi-Drug Resistant Organisms: None Reported Past Surgical History: Bariatric Surgery, Hernia Repair, Hysterectomy, Orthopedic Surgery, Tubal Ligation Additional Past Surgical History / Comment(s): 10/19/19 PCI with stent, EGDs, colonoscopy/benign polyps, gastric bypass with revision, ventral and hiatal hernia repair, bladder suspension, R rotator curr repair/revision, L knee art hroscopy, rectocele, perinealplasty, Past Anesthesia/Blood Transfusion Reactions: Motion Sickness Smoking Status: Never smoker - Past Family History Mother Family Medical History: Coronary Artery Disease (CAD), Eye Disorder Additional Family Medical History / Comment(s): Mother is 91 yrs old Father Family Medical History: Myocardial Infarction (ME) Additional Family Medical History / Comment(s): Father of a massive ME at the age of 53 yrs. Sister(s) Family Medical History: Cancer Medications and Allergies Home Medications Medication Instructions Recorded Confirmed Type Levothyroxine Sodium [Synthroid] 88 mcg PO DAILY 08/09/13 11/27/19 History Cyclobenzaprine [Flexeril] 5 mg PO TID PRN 11/04/15 11/27/19 History Vortioxetine Hydrobromide 10 mg PO DAILY 11/04/15 11/27/19 History [Trintellix] rOPINIRole HCL [Requip] 3 mg PO DAILY@2100 11/09/17 11/27/19 History Amitriptyline HCl [Elavil] 75 mg PO HS 10/18/19 11/27/19 History Diclofenac Potassium [Cataflam] 50 mg PO BID 10/18/19 11/27/19 History Diclofenac Sodium Gel [Voltaren 2 gm TOPICAL QID PRN 10/18/19 11/27/19 History Gel] Ergocalciferol [Vitamin D2 50,000 unit PO RALPH 10/18/19 11/27/19 History (DRISDOL)] Esomeprazole Magnesium 40 mg PO DAILY 10/18/19 11/27/19 History Hydrocodone/Acetaminophen [[place] 1 tab PO TID 10/18/19 11/27/19 History 7.5-325] Pregabalin [Lyrica] 200 mg PO TID 10/18/19 11/27/19 History Topiramate 50 mg PO BID 10/18/19 11/27/19 History rOPINIRole HCL [Requip] 4 mg PO HS@2300 10/18/19 11/27/19 History Aspirin 81 mg PO DAILY #30 chew 10/20/19 11/27/19 Rx Atorvastatin [Lipitor] 40 mg PO HS #30 tab 10/20/19 11/27/19 Rx Clopidogrel [Plavix] 75 mg PO DAILY #30 tab 10/20/19 11/27/19 Rx Losartan [Cozaar] 50 mg PO HS #30 tab 10/20/19 11/27/19 Rx Nitroglycerin Sl Tabs [Nitrostat] 0.4 mg SUBLINGUAL Q5M PRN #30 tab 10/20/19 11/27/19 Rx Furosemide [Lasix] 40 mg PO BID@0900,1600 #60 tab 10/21/19 11/27/19 Rx Ipratropium-Albuterol Nebulize 3 ml INHALATION QID #120 dose 10/21/19 11/27/19 Rx [Duoneb 0.5 mg-3 mg/3 ml Soln] Metoprolol Tartrate [Lopressor] 25 mg PO DAILY #30 tab 10/21/19 11/27/19 Rx Spironolactone [Aldactone] 25 mg PO DAILY #30 tab 10/21/19 11/27/19 Rx Metoprolol Tartrate 12.5 mg PO DAILY@1700 11/27/19 11/27/19 History Potassium Chloride [Klor-Con 20] 20 meq PO BID 11/27/19 11/27/19 History Warfarin Sodium [Jantoven] 7.5 mg PO DAILY 11/27/19 11/27/19 History metOLazone [Zaroxolyn] 2.5 mg PO DAILY 11/27/19 11/27/19 History Allergies Allergy/AdvReac Type Severity Reaction Status Date / Time cefprozil [From Cefzil] Allergy Unknown Verified 11/27/19 09:01 Sulfa (Sulfonamide Allergy Rash/Hives Verified 11/27/19 09:01 Antibiotics) valdecoxib [From Bextra] Allergy Unknown Verified 11/27/19 09:01 codeine AdvReac DIFFICULTY Verified 11/27/19 09:01 URINATING metaxalone [From Skelaxin] AdvReac Nausea & Verified 11/27/19 09:01 Vomiting Physical Exam Vitals: Vital Signs Temp Pulse Pulse Pulse Pulse Resp BP 11/28/19 20:00 97.5 F L 61 18 106/51 11/28/19 16:00 98.2 F 50 L 18 103/68 11/28/19 12:00 96.7 F L 55 L 20 153/56 11/28/19 09:00 97.6 F 58 L 64 64 55 L 20 11/28/19 04:04 98.0 F 58 L 18 116/56 11/27/19 23:56 97.8 F 65 16 91/46 BP BP BP Pulse Ox 11/28/19 20:00 97 11/28/19 16:00 100 11/28/19 12:00 96 11/28/19 09:00 104/57 132/66 99/50 98 11/28/19 04:04 98 11/27/19 23:56 98 Intake and Output 11/28/19 11/28/19 11/28/19 06:59 14:59 22:59 Intake Total 636 644 Balance 636 644 Intake: Oral 636 644 Other: # Voids 1 1 3 Weight 120.8 kg General: well nourished, well developed, obese, NAD. Vitals reviewed Eyes: PERRL, EOMI, conjunctiva normal HENT: normocephalic, mucus membranes moist Neck: supple, no JVD Lungs: normal respiratory effort, no wheezes or rales CV: Regular rate and rhythm, no murmur. Peripheral pulses 2+. Trace edema Abdomen: soft, nondistended, no organomegaly Lymph: no cervical or axillary LAD Skin: warm and dry. Neuro: A&Ox3, normal mood and affect Results CBC & Chem 7: 11/28/19 06:11 11/28/19 17:41 Labs: Abnormal Lab Results - Last 24 Hours (Table) 11/28/19 11/28/19 11/28/19 Range/Units 06:11 08:44 17:41 RDW 15.7 H (11.5-15.5) % Sodium 123 L 123 L (137-145) mmol/L Chloride 84 L (98-107) mmol/L BUN 47 H (7-17) mg/dL Glucose 132 H (74-99) mg/dL AST 38 H (14-36) U/L Total Protein 5.6 L (6.3-8.2) g/dL Albumin 3.2 L (3.5-5.0) g/dL Thrombosis Risk Factor Assmnt - Choose All That Apply Any of the Below Risk Factors Present?: Yes Each Factor Represents 1 point: Obesity (BMI >25) Other Risk Factors: Yes Each Risk Factor Represents 2 Points: Age 61-74 years Each Risk Factor Represents 3 Points: History of DVT/PE Other congenital or acquired thrombophilia - If yes, enter type in comment: No Thrombosis Risk Factor Assessment Total Risk Factor Score: 6 Thrombosis Risk Factor Assessment Level: High Risk Assessment and Plan (1) Syncope and collapse Current Visit: Yes Status: Acute Code(s): R55 - SYNCOPE AND COLLAPSE SNOMED Code(s): 297702262 (2) Acute kidney injury Current Visit: Yes Status: Acute Code(s): N17.9 - ACUTE KIDNEY FAILURE, UNSPECIFIED SNOMED Code(s): 66204662 (3) Hyponatremia Current Visit: Yes Status: Acute Code(s): E87.1 - HYPO-OSMOLALITY AND HYPONATREMIA SNOMED Code(s): 17765677 (4) Hypokalemia Current Visit: Yes Status: Acute Code(s): E87.6 - HYPOKALEMIA SNOMED Code(s): 46319688 (5) CHF (congestive heart failure) Current Visit: No Status: Acute Code(s): I50.9 - HEART FAILURE, UNSPECIFIED SNOMED Code(s): 93113604 Plan: 1. Syncope and collapse. Suspect vasovagal exacerbated by medication noncompliance and electrolyte derangement. Cardio consult. Treat underlying cause 2. Hyponatremia. Continue with IV saline. Fluid restrict diet. Nephrology consult 3. JASPER. 4. Leukocytosis, reactive from stress, now resolved 5. Major depression. Continue trintellix, stop elavil 6. chronic pain syndrome. Continue norvo and lyrica 7. CAD. Continue toprol, lipitor, plavix
[2019-11-29] MEDS: LEVOTHYROXINE 88 MCG TAB PO SCH (06:22)
[2019-11-29 06:33] LABS: African American GFR (CKD) >90 (>60 ml/min/1.73 sqM); Anion Gap 6 mmol/L; Blood Urea Nitrogen 39 mg/dL (7-17); Calcium 8.8 mg/dL (8.4-10.2); Carbon Dioxide 34 mmol/L (22-30); Chloride 85 mmol/L (98-107); Glucose 98 mg/dL (74-99); Magnesium 2.4 mg/dL (1.6-2.3); Non-African American GFR(CKD) 83 (>60 ml/min/1.73 sqM); Potassium 4.1 mmol/L (3.5-5.1); Sodium 125 mmol/L (137-145); Uric Acid 9.1 mg/dL (3.7-7.4)
[2019-11-29 06:34] LABS: INR 0.9 (<1.2); Prothrombin Time 9.7 sec (9.0-12.0)
[2019-11-29] MEDS: VORTIOXETINE HYDROBROMIDE 10 MG TABLET PO SCH (09:21)
[2019-11-29] MEDS: PANTOPRAZOLE 40 MG TABLET PO SCH (09:21)
[2019-11-29] MEDS: SPIRONOLACTONE 25 MG TAB PO SCH (09:21)
[2019-11-29] MEDS: PREGABALIN 100 MG CAP PO SCH ×3 (09:21→21:01)
[2019-11-29] MEDS: METOPROLOL TARTRATE 25 MG TAB PO SCH (09:21)
[2019-11-29] MEDS: CLOPIDOGREL 75 MG TAB PO SCH (09:21)
[2019-11-29] MEDS: TOPIRAMATE 25 MG TAB PO SCH ×2 (09:21→21:01)
[2019-11-29] MEDS: ASPIRIN 81 MG PO SCH (09:21)
[2019-11-29] MEDS: POTASSIUM CHLORIDE ER 20 MEQ TAB.ER PO SCH (09:21)
[2019-11-29] MEDS: CYCLOBENZAPRINE 5 MG TAB PO PRN ×2 (09:27→21:15)
[2019-11-29] MEDS: ACETAMINOPHEN TAB 325 MG TAB PO PRN (09:27)
--- NOTE | 2019-11-29 12:00 | CDI ---
Documentation Clarification Form Date: 11/29/2019 10:46:53 AM From: Jayleen Johnson RN CCDS Admit Date: 11/27/2019 11:20:00 AM Patient Name: Marlin Veras Visit Number: [id number] Discharge Date: ATTENTION: The Clinical Documentation Specialists (CDI) and [facility] Coding Staff appreciate your assistance in clarifying documentation. Please respond to the clarification below the line at the bottom and electronically sign. The CDI & [facility] Coding staff will review the response and follow-up if needed. Please note: Queries are made part of the Legal Health Record. If you have any questions, please contact the author of this message via ITS. Dr. Edd Lee Conflicting documentation has been found in the medical record: Diastolic CHF is documented in the H&P under medical history 11/27 Chronic Systolic CHF is documented in Nephrology Consult 11/27 History/Risk Factors:64-year-old female presents to the ED after a syncopal event at home. Medical history: Asthma; CAD; CHF; CVA/TIA: Fibromyalgia; [place] and hypoxic respiratory failure/home oxygen 3L nasal cannula ATC. Home Medications: Lopressor, Aldactone, Lasix, Clinical Indicators: 10/19/19 Echo Left ventricular wall thickness is normal. Overall left ventricular systolic function is moderately impaired with, an EF between 35-40% Treatment: Lopressor PO Daily; Aldactone PO Daily In your opinion, what is the most clinically appropriate diagnosis for this patient? Chronic Systolic Heart Failure Chronic Systolic Diastolic Heart Failure Chronic Diastolic Heart Failure Other explanation of clinical findings Unable to determine (no explanation for clinical findings) (Last Revision: July 2017) Chronic Systolic and Diastolic Heart Failure MTDD
--- NOTE | 2019-11-29 12:05 | P.PN ---
Subjective Patient is seen in follow-up for hyponatremia. Sodium level 125 this morning. Denies chest pain or shortness of breath. Good urine output. Oral intake good. Vital signs are stable. General: The patient appeared well nourished and normally developed. HEENT: Head exam is unremarkable. Neck is without jugular venous distension. LUNGS: Breath sounds decreased. HEART: Rate and Rhythm are regular. ABDOMEN: Soft, nontender. Obese. EXTREMITITES: 1+ edema. Objective - Vital Signs Vital signs: Vital Signs Temp 97.9 F 11/29/19 08:00 Pulse 56 L 11/29/19 08:00 Resp 18 11/29/19 08:00 BP 105/75 11/29/19 08:00 Pulse Ox 88 L 11/29/19 08:00 Intake & Output 11/28/19 11/29/19 11/29/19 18:59 06:59 18:59 Intake Total 1280 200 Balance 1280 200 Weight 120.3 kg Intake: Oral 1280 200 Other: # Voids 3 1 - Labs CBC & Chem 7: 11/28/19 06:11 11/29/19 05:46 Labs: Abnormal Lab Results - Last 24 Hours (Table) 11/28/19 11/29/19 Range/Units 17:41 05:46 Sodium 123 L 125 L (137-145) mmol/L Chloride 85 L (98-107) mmol/L Carbon Dioxide 34 H (22-30) mmol/L BUN 39 H (7-17) mg/dL Uric Acid 9.1 H (3.7-7.4) mg/dL Magnesium 2.4 H (1.6-2.3) mg/dL Assessment and Plan Plan: Assessment: 1. Hyponatremia. Currently appears euvolemic. Etiology is diuretics and nonsteroidal use. Sodium level 125 this morning. Urine osmolality 257. Urine sodium 53. TSH normal. 2. Acute kidney injury mostly prerenal improved with IV hydration. 3. Hypokalemia secondary to diuresis. Improved posterior placement. Magnesium normal. 4. Syncopal episode possibly vasovagal with component of hypovolemia. Orthostatic vital signs noted. 5. Chronic systolic CHF with ejection fraction of 45-50%. Plan: Remains off IV fluids. Maintain 1200 mL fluid restriction. Encouraged oral intake, particularly protein. Decrease dose of potassium supplementation. Repeat electrolytes in the morning.
--- NOTE | 2019-11-29 12:15 | CDI ---
Documentation Clarification Form Date: 11/29/2019 12:00:39 PM From: Jayleen Johnson RN CCDS Admit Date: 11/27/2019 11:20:00 AM Patient Name: Marlin Veras Visit Number: [id number] Discharge Date: ATTENTION: The Clinical Documentation Specialists (CDI) and [facility] Coding Staff appreciate your assistance in clarifying documentation. Please respond to the clarification below the line at the bottom and electronically sign. The CDI & [facility] Coding staff will review the response and follow-up if needed. Please note: Queries are made part of the Legal Health Record. If you have any questions, please contact the author of this message via ITS. Dr. Edd Lee Hypoxic respiratory failure/home oxygen 3L/NC ATC. History/Risk Factors: 64-year-old female presents to the ED after a syncopal event at home. Medical history: Asthma; BLANCO and hypoxic respiratory failure/home oxygen 3L nasal cannula ATC. Home oxygen: 3L Clinical Indicators: Vital signs: BP: 101/59; HR: 63; Temp 97.5 F Oral; RR: 18; Spo2: 96% 2L 11/27 H&P Lung/Breathing assessment: normal respiratory effort, no wheezes or rales. Treatment: 2L to 4L nasal cannula In your professional opinion, can you please clarify if these findings signify one of the following conditions? Chronic Respiratory Failure Other Diagnosis, please specify Unable to determine Specificity: If known, further specify (if known): With hypercapnia? (pCO2 >50 and pH <7.35) With hypoxia? (pO2 <60 mm Hg or SpO2 <91% on room air) (Last Query Form Revision: December 2018) Chronic Respiratory Failure with hypoxia MTDD
--- NOTE | 2019-11-29 12:49 | P.PN ---
Subjective Progress Note Date: 11/29/19 Marlin Veras is a 64 yo F with PMH CAD, recent stenting last month, diastolic CHF, DVT/PE who presented to the ED via EMS after a syncopal event at home. Pt notes that had been constipated the past few days, she woke up at 2 am the day of admission with diarrhea, she apparently passed out on the toilet and was found by her significant other at a 8 am. She had apparently stopped taking many of her medications for a few days as she had been feeling overwhelmed and that she was on too much medicine. On presentation vitals stable, WBC 16.8k, Na 123, Cr 1.5. EKG stable, CT head negative. 11/29/2019 evaluated by nephrology with recommendations noted and appreciated. Maintained on fluid restrictions. Sodium improving up to 125, potassium normalized. BUN 39 and creatinine 0.76. Uric acid elevated, 9.1. Sleeping well. Complains of significant anxiety. Staff reports patient had been crying. Reports minimal lightheadedness, no dizziness. Denies chest pain, palpitations or shortness of breath. Objective - Vital Signs Vital signs: Vital Signs Temp 97.9 F 11/29/19 08:00 Pulse 56 L 11/29/19 08:00 Resp 18 11/29/19 08:00 BP 105/75 11/29/19 08:00 Pulse Ox 88 L 11/29/19 08:00 Intake & Output 11/28/19 11/29/19 11/29/19 18:59 06:59 18:59 Intake Total 1280 200 Balance 1280 200 Weight 120.3 kg Intake: Oral 1280 200 Other: # Voids 3 1 - Exam General: well nourished, well developed, obese, NAD. Vitals reviewed Eyes: PERRL, EOMI, conjunctiva normal. HENT: normocephalic, mucus membranes moist Neck: supple, no JVD Lungs: normal respiratory effort, no wheezes or rales CV: Regular rate and rhythm, no murmur. Peripheral pulses 2+. Positive edema Abdomen: soft, nondistended, no organomegaly Skin: warm and dry. Neuro: A&Ox3, normal mood and affect - Labs CBC & Chem 7: 11/28/19 06:11 11/29/19 05:46 Labs: Abnormal Lab Results - Last 24 Hours (Table) 11/28/19 11/29/19 Range/Units 17:41 05:46 Sodium 123 L 125 L (137-145) mmol/L Chloride 85 L (98-107) mmol/L Carbon Dioxide 34 H (22-30) mmol/L BUN 39 H (7-17) mg/dL Uric Acid 9.1 H (3.7-7.4) mg/dL Magnesium 2.4 H (1.6-2.3) mg/dL Assessment and Plan Assessment: (1) Syncope and collapse, suspect vasovagal, hypovolemia Current Visit: Yes Status: Acute Code(s): R55 - SYNCOPE AND COLLAPSE SNOMED Code(s): 995624722 (2) Acute kidney injury, prerenal, improving with IV fluid hydration Current Visit: Yes Status: Acute Code(s): N17.9 - ACUTE KIDNEY FAILURE, UNSPECIFIED SNOMED Code(s): 43659582 (3) Hyponatremia Current Visit: Yes Status: Acute Code(s): E87.1 - HYPO-OSMOLALITY AND HYPONATREMIA SNOMED Code(s): 36630161 (4) Hypokalemia Current Visit: Yes Status: Acute Code(s): E87.6 - HYPOKALEMIA SNOMED Code(s): 39330264 (5) CHF (congestive heart failure), systolic dysfunction, EF 45-50% Current Visit: No Status: Acute Code(s): I50.9 - HEART FAILURE, UNSPECIFIED SNOMED Code(s): 59727162 (6) chronic pain syndrome (7) major depression (8) CAD (9) chronic hypoxic, hypercapnic respiratory failure, wears 3 L nasal cannula O2 at home Plan: Continue on current medication regime ,monitoring and symptomatic treatment. Patient advised to increase ambulation, recommending up in chair for all meals regarding complaints of sciatica pain. Abilify added in addition to trintellix. Dietary consult. Close monitoring of electrolytes with repeat labs ordered for a.m. The impression and plan of care has been dictated as directed. : I performed a history and examination of this patient, discussed the same with the dictator. I agree with the dictator's note ,documented as a scribe. Any additional findings or plans will be noted.
--- NOTE | 2019-11-29 13:21 | P.PN ---
Subjective Progress Note Date: 11/29/19 CHIEF COMPLAINT: Syncope HISTORY OF PRESENT ILLNESS: Patient examined this morning at the bedside. She states she is feeling better this morning. She denies chest pain or shortness of breath the time of examination. Vital signs stable. PHYSICAL EXAM: VITAL SIGNS: Reviewed. GENERAL: Well-developed in no acute distress. HEENT: Head is normocephalic. Pupils are equal, round. Sclerae anicteric. Mucous membranes of the mouth are moist. Neck supple. No JVD or thyromegaly LUNGS: Respirations even and unlabored. Lungs essentially clear to auscultation bilaterally. HEART: Regular rate and rhythm. S1 and S2 heard. EXTREMITIES: Normal range of motion. No clubbing or cyanosis. Peripheral pulses intact. No lower extremity edema NEUROLOGIC: Awake and alert. Oriented x 3. ASSESSMENT: 1. Possible syncope 2. Coronary artery disease, with recent cardiac cath performed in October 2019 with drug-eluting stent to the diagonal 3. Hyperlipidemia 4. Hypertension 5. History of DVT/PE, on long-term anticoagulation with Coumadin 6. Subtherapeutic INR, secondary to patient not taking medication 7. COPD, on home O2 8. Acute kidney injury, resolved PLAN: -Continue current cardiac medications -Orthostatics performed and were negative -No need to repeat echocardiogram as this was performed last month -Nephrology following for hyponatremia -Continue Coumadin and monitor INR -Further recommendations pending patient's course Nurse practitioner note has been reviewed by physician. Signing provider agrees with the documented findings, assessment, and plan of care. Objective - Vital Signs Vital signs: Vital Signs Temp 97.9 F 11/29/19 03:53 Pulse 54 L 11/29/19 03:53 Resp 18 11/29/19 03:53 BP 101/51 11/29/19 03:53 Pulse Ox 98 11/29/19 03:53 Intake & Output 11/28/19 11/29/19 11/29/19 18:59 06:59 18:59 Intake Total 1280 200 Balance 1280 200 Weight 120.3 kg Intake: Oral 1280 200 Other: # Voids 3 - Labs CBC & Chem 7: 11/28/19 06:11 11/29/19 05:46 Labs: Abnormal Lab Results - Last 24 Hours (Table) 11/28/19 11/29/19 Range/Units 17:41 05:46 Sodium 123 L 125 L (137-145) mmol/L Chloride 85 L (98-107) mmol/L Carbon Dioxide 34 H (22-30) mmol/L BUN 39 H (7-17) mg/dL Uric Acid 9.1 H (3.7-7.4) mg/dL Magnesium 2.4 H (1.6-2.3) mg/dL
[2019-11-29] MEDS: ARIPiprazole 5 MG TAB PO SCH (14:16)
[2019-11-29] MEDS: SENNOSIDES-DOCUSATE SODIUM 1 EACH TAB PO SCH (18:06)
[2019-11-29] MEDS: WARFARIN 10 MG TAB PO SCH (18:06)
[2019-11-29] MEDS: LOSARTAN 50 MG TAB PO SCH (21:01)
[2019-11-29] MEDS: ATORVASTATIN 40 MG TAB PO SCH (21:01)
[2019-11-29] MEDS: HYDROcodone/APAP 7.5-325MG 1 EACH TAB PO PRN (21:07)
[2019-11-29] MEDS: rOPINIRole HCL 4 MG TABLET PO SCH (23:17)
[2019-11-30] MEDS: ACETAMINOPHEN TAB 325 MG TAB PO PRN (02:04)
[2019-11-30] MEDS: LEVOTHYROXINE 88 MCG TAB PO SCH (06:15)
[2019-11-30 07:08] LABS: INR 1.1 (<1.2); Prothrombin Time 11.1 sec (9.0-12.0)
[2019-11-30 07:10] LABS: African American GFR (CKD) >90 (>60 ml/min/1.73 sqM); Anion Gap 9 mmol/L; Blood Urea Nitrogen 40 mg/dL (7-17); Calcium 8.5 mg/dL (8.4-10.2); Carbon Dioxide 28 mmol/L (22-30); Chloride 89 mmol/L (98-107); Glucose 80 mg/dL (74-99); Non-African American GFR(CKD) >90 (>60 ml/min/1.73 sqM); Potassium 4.1 mmol/L (3.5-5.1); Sodium 126 mmol/L (137-145)
[2019-11-30] MEDS: ASPIRIN 81 MG PO SCH (10:42)
[2019-11-30] MEDS: CLOPIDOGREL 75 MG TAB PO SCH (10:42)
[2019-11-30] MEDS: POTASSIUM CHLORIDE ER 20 MEQ TAB.ER PO SCH (10:42)
[2019-11-30] MEDS: ARIPiprazole 5 MG TAB PO SCH (10:42)
[2019-11-30] MEDS: VORTIOXETINE HYDROBROMIDE 10 MG TABLET PO SCH (10:42)
[2019-11-30] MEDS: SENNOSIDES-DOCUSATE SODIUM 1 EACH TAB PO SCH (10:42)
[2019-11-30] MEDS: PREGABALIN 100 MG CAP PO SCH ×3 (10:42→21:35)
[2019-11-30] MEDS: SPIRONOLACTONE 25 MG TAB PO SCH (10:42)
[2019-11-30] MEDS: METOPROLOL TARTRATE 25 MG TAB PO SCH (10:43)
[2019-11-30] MEDS: PANTOPRAZOLE 40 MG TABLET PO SCH (10:43)
[2019-11-30] MEDS: TOPIRAMATE 25 MG TAB PO SCH ×2 (10:43→21:36)
[2019-11-30] MEDS: HYDROcodone/APAP 7.5-325MG 1 EACH TAB PO PRN ×2 (10:49→21:35)
[2019-11-30 11:50] VITALS: BMI 48.6
[2019-11-30] MEDS ORDERED: TOLVAPTAN 15 MG 1/2 TABLET PO ONE (12:30)
--- NOTE | 2019-11-30 12:35 | PN ---
PROGRESS NOTE Patient is seen for followup for hyponatremia which is currently improving. Patient is currently maintained on fluid restriction. Her blood pressure is on the lower side. Urine osmolality was not elevated. The patient had not been on any thiazide diuretics. Patient had been on Zaroxolyn prior to admission, which is currently on hold. PHYSICAL EXAMINATION: On examination today, blood pressure was 96/56, heart rate 66 per minute, she is afebrile. Examination of the heart S1, S2. Examination of the lungs, bilateral breath sounds are heard. Decreased breath sounds at bases. Abdomen is soft, obese, nontender. Examination of lower extremities shows no significant edema. LABS: Serum sodium 126 today. ASSESSMENT: 1. Hyponatremia, currently improved. Diuretics are on hold. This is most likely associated with decreased solute intake as urine osmolality is on the lower side. The patient does have history of CHF, therefore I will avoid salt tablets. She was on NSAIDs, which are now on hold. Overall, patient states she is feeling better. 2. History of CHF, EF 45 to 50 percent, currently compensated. 3. Acute kidney injury mostly prerenal, currently improved with IV hydration. 4. Syncopal episode, possibly vasovagal, and with some degree of hypovolemia. PLAN: Maintain fluid restriction and encourage increased protein intake. I will give her a dose of tolvaptan as well. We can likely resume low-dose loop diuretics post discharge. I will decrease the dose of Cozaar as her blood pressure remains low. MMODL / IJN: [id number] /
--- NOTE | 2019-11-30 13:20 | P.PN ---
Subjective Patient seen and examined sitting up at the edge of the bed in no acute distress. Overall she feels back to her baseline. She has no symptoms of chest pain, shortness of breath, dizziness or palpitations. Blood pressure 96/56 heart rate 66 afebrile maintaining oxygen saturation on nasal cannula. Laboratory data reviewed, INR 1.1, sodium 126, potassium 4.1, creatinine 0.63. Currently maintained on Coumadin, aspirin 81 mg daily, atorvastatin 40 mg at bedtime, Plavix 75 mg daily, start and 25 mg at bedtime, Lopressor 25 mg daily and Aldactone 25 mg daily. Telemetry tracings unremarkable. GENERAL: Well-appearing, well-nourished and in no acute distress. morbidly obese. NECK: Supple without JVD or thyromegaly. LUNGS: Breath sounds clear to auscultation bilaterally. Respiration equal and unlabored. No wheezes, rales or rhonchi. HEART: Regular rate and rhythm without murmurs, rubs or gallops. S1 and S2 heard. EXTREMITIES: Normal range of motion, no edema. No clubbing or cyanosis. Peripheral pulses intact. ASSESSMENT Syncope Hyponatremia, nephrology following Coronary artery disease status post revascularization of the diagonal branch October 2019 Dyslipidemia Hypertension History of DVT on Coumadin Subtherapeutic INR COPD on home oxygen Acute kidney injury, resolved PLAN Continue current medical regimen. Nurse Practitioner note has been reviewed, I agree with a documented findings and plan of care. Patient was seen and examined. Objective - Vital Signs Vital signs: Vital Signs Temp 97.6 F 11/30/19 08:50 Pulse 66 11/30/19 08:50 Resp 18 11/30/19 08:50 BP 96/56 11/30/19 08:50 Pulse Ox 93 L 11/30/19 08:50 Intake & Output 11/29/19 11/30/19 11/30/19 18:59 06:59 18:59 Intake Total 460 220 360 Balance 460 220 360 Weight 120.8 kg 120.8 kg Intake: Oral 460 220 360 Other: # Voids 1 1 - Labs CBC & Chem 7: 11/28/19 06:11 11/30/19 06:07 Labs: Abnormal Lab Results - Last 24 Hours (Table) 11/30/19 Range/Units 06:07 Sodium 126 L (137-145) mmol/L Chloride 89 L (98-107) mmol/L BUN 40 H (7-17) mg/dL
[2019-11-30] MEDS ORDERED: DICLOFENAC SODIUM GEL 100 GM TUBE TOPICAL PRN (15:40)
[2019-11-30] MEDS ORDERED: NITROGLYCERIN SL TABS 0.4 MG TAB SUBLINGUAL PRN (15:40)
[2019-11-30] MEDS: IPRATROPIUM-ALBUTEROL 3 ML NEB INHALATION SCH ×2 (16:22→20:25)
--- NOTE | 2019-11-30 17:27 | PN ---
PROGRESS NOTE DATE OF SERVICE: 11/30/2019 I am covering for Dr. Lee. This 64-year-old woman was admitted with syncope also had hyponatremia. The patient also had low blood pressures at this time. The blood pressure has been fluctuating. PAST MEDICAL HISTORY: Reviewed. REVIEW OF SYSTEMS: CARDIOVASCULAR: No angina, no chest pain., GI: As mentioned earlier. : As mentioned earlier. 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 CURRENT MEDICATIONS: Reviewed, include Tylenol p.r.n., [place], DuoNeb, Abilify, aspirin, Lipitor, Plavix, Flexeril, Voltaren gel, folic acid, Synthroid, Cozaar, lopressor, multivitamins, Narcan, Nitrostat, Protonix, K-Dur, Lyrica, Requip, Senokot-S, aldactone vitamin B1, Topamax, , Coumadin. PHYSICAL EXAMINATION: Alert and oriented x3. Pulse 66, blood pressure 96/56, respirations 18, temperature 97.2, pulse ox 93% on 4 L. HEENT: Normal. CARDIOVASCULAR: S1 and S2 muffled. RESPIRATORY SYSTEM: Breath sounds diminished at the bases. Scattered rhonchi and crackles. ABDOMEN: Soft nontender. LEGS: No edema. No swelling. LABS: At this time shows WBC 8.2, hemoglobin 11.4, sodium 126. UA unremarkable. The chest x- ray at the time of admission, no evidence of acute process. ASSESSMENT: 1. Syncope possibly vasovagal, rule out orthostatic hypotension, possibly secondary to hypovolemia. 2. Acute kidney injury present on admission secondary to hypovolemia. 3. Hyponatremia secondary to hypovolemia. 4. Acute renal failure with acute tubular necrosis. 5. Increased WBC. 6. Anemia. 7. History of asthma. 8. History of CAD. 9. History of CHF. 10.COPD. 11.History of CVA, TIA. 12.History of DVT. 13.Fibromyalgia. 14.History of GERD. 15.History of gastrointestinal bleed. 16.Hypertension. 17.Hyperlipidemia. 18.Myocardial infarction. 19.History of DJD. 20.History of pulmonary embolism. 21.History of seizure disorder. 22.History of sleep apnea. 23.History of takotsubo syndrome. 24.History of bariatric surgery. 25.History of anxiety, depression. RECOMMENDATIONS AND DISCUSSION: In this 64-year-old woman who presented with multiple complex medical issues, we will monitor the patient closely, continue the current management and symptomatic treatment. Otherwise at this time I recommend to monitor orthostatic hypotension. Monitor blood pressure medications closely. Guarded prognosis. Further plans to follow. MMJUWANL / MARIA TERESAN: [id number] /
[2019-11-30] MEDS: WARFARIN 10 MG TAB PO SCH (17:49)
[2019-11-30] MEDS ORDERED: LOSARTAN 25 MG TAB PO SCH (21:00)
[2019-11-30] MEDS: HEPARIN SODIUM,PORCINE 5,000 UNIT/ML 1 ML VIAL SQ SCH ×2 (21:22→23:44)
[2019-11-30] MEDS: CYCLOBENZAPRINE 5 MG TAB PO PRN (21:35)
[2019-11-30] MEDS: ATORVASTATIN 40 MG TAB PO SCH (21:36)
[2019-11-30] MEDS: rOPINIRole HCL 4 MG TABLET PO SCH (23:44)
[2019-12-01] MEDS: HYDROcodone/APAP 7.5-325MG 1 EACH TAB PO PRN (05:33)
[2019-12-01] MEDS: LEVOTHYROXINE 88 MCG TAB PO SCH (05:35)
[2019-12-01 07:18] LABS: Basophils % (A) 1 %; Eosinophils # (A) 0.2 k/uL (0-0.7); Eosinophils % (A) 3 %; HCT 34.4 % (34.0-46.0); Lymphocytes # (A) 1.5 k/uL (1.0-4.8); Lymphocytes % (A) 25 %; MCV 87.4 fL (80.0-100.0); Mean Platelet Volume 7.2; Monocytes # (A) 0.5 k/uL (0-1.0); Monocytes % (A) 8 %; Neutrophils # (A) 3.7 k/uL (1.3-7.7); Neutrophils % (A) 62 %; Platelet Count 308 k/uL (150-450); RBC 3.94 m/uL (3.80-5.40); RDW 15.8 % (11.5-15.5); WBC 5.9 k/uL (3.8-10.6)
[2019-12-01 07:34] LABS: African American GFR (CKD) >90 (>60 ml/min/1.73 sqM); Anion Gap 6 mmol/L; Blood Urea Nitrogen 41 mg/dL (7-17); Calcium 8.7 mg/dL (8.4-10.2); Carbon Dioxide 24 mmol/L (22-30); Chloride 101 mmol/L (98-107); Glucose 78 mg/dL (74-99); Non-African American GFR(CKD) >90 (>60 ml/min/1.73 sqM); Potassium 4.1 mmol/L (3.5-5.1); Sodium 131 mmol/L (137-145)
[2019-12-01] MEDS: IPRATROPIUM-ALBUTEROL 3 ML NEB INHALATION SCH ×4 (08:39→20:18)
[2019-12-01] MEDS: PREGABALIN 100 MG CAP PO SCH ×4 (09:42→23:21)
[2019-12-01] MEDS: POTASSIUM CHLORIDE ER 20 MEQ TAB.ER PO SCH (09:42)
[2019-12-01] MEDS: HEPARIN SODIUM,PORCINE 5,000 UNIT/ML 1 ML VIAL SQ SCH ×3 (09:42→23:11)
[2019-12-01] MEDS: SENNOSIDES-DOCUSATE SODIUM 1 EACH TAB PO SCH (09:42)
[2019-12-01] MEDS: METOPROLOL TARTRATE 12.5 MG TAB PO SCH (09:42)
[2019-12-01] MEDS: ASPIRIN 81 MG PO SCH (09:42)
[2019-12-01] MEDS: SPIRONOLACTONE 25 MG TAB PO SCH (09:43)
[2019-12-01] MEDS: VORTIOXETINE HYDROBROMIDE 10 MG TABLET PO SCH (09:43)
[2019-12-01] MEDS: TOPIRAMATE 25 MG TAB PO SCH ×3 (09:43→21:37)
[2019-12-01] MEDS: CLOPIDOGREL 75 MG TAB PO SCH (09:43)
[2019-12-01] MEDS: ARIPiprazole 5 MG TAB PO SCH (09:43)
[2019-12-01] MEDS: PANTOPRAZOLE 40 MG TABLET PO SCH (09:43)
[2019-12-01] MEDS: CYCLOBENZAPRINE 5 MG TAB PO PRN (10:00)
[2019-12-01 11:03] LABS: INR 1.5 (<1.2); Prothrombin Time 14.5 sec (9.0-12.0)
[2019-12-01] MEDS: FOLIC ACID 1 MG TAB PO SCH (13:07)
[2019-12-01] MEDS: MULTIVITAMINS, THERA 1 EACH TAB PO SCH (13:07)
[2019-12-01] MEDS: THIAMINE 100 MG TAB PO SCH (13:07)
--- NOTE | 2019-12-01 13:55 | P.PN ---
Subjective Patient seen and examined ambulating back from the bathroom. She continues to feel dizzy with activity. She denies chest pain, shortness of breath or palpitations. Blood pressure 116/87 heart rate 74 afebrile and maintaining oxygen saturation on nasal cannula. Orthostatic blood pressures unremarkable. Laboratory data reviewed, hgb 11, plt 308, INR 1.5, sodium 131, potassium 4.1, creatinine 0.62. Currently maintained on Coumadin, aspirin 81 mg daily, atorvastatin 40 mg at bedtime, Plavix 75 mg daily, losartan 25 mg at bedtime, Lopressor 25 mg daily and Aldactone 25 mg daily. Telemetry tracings unremarkable. VQ scan negative. GENERAL: Well-appearing, well-nourished and in no acute distress. morbidly obese. Ecchymosis noted on the face. NECK: Supple without JVD or thyromegaly. LUNGS: Breath sounds clear to auscultation bilaterally. Respiration equal and unlabored. No wheezes, rales or rhonchi. HEART: Regular rate and rhythm without murmurs, rubs or gallops. S1 and S2 heard. EXTREMITIES: Normal range of motion, no edema. No clubbing or cyanosis. Peripheral pulses intact. ASSESSMENT Syncope Hyponatremia, nephrology following Coronary artery disease status post revascularization of the diagonal branch October 2019 Dyslipidemia Hypertension History of DVT on Coumadin Subtherapeutic INR COPD on home oxygen Acute kidney injury, resolved PLAN Continue current medical regimen from a cardiac perspective. Ongoing evaluation by primary team and possibly neurology evaluation. Nurse Practitioner note has been reviewed, I agree with a documented findings and plan of care. Patient was seen and examined. Objective - Vital Signs Vital signs: Vital Signs Temp 98 F 12/01/19 09:00 Pulse 73 12/01/19 09:00 Resp 18 12/01/19 09:00 BP 103/59 12/01/19 09:00 Pulse Ox 99 12/01/19 09:00 Intake & Output 11/30/19 12/01/19 12/01/19 18:59 06:59 18:59 Intake Total 840 480 Output Total 3600 300 Balance 840 -3600 180 Weight 120.8 kg 120.1 kg Intake: Oral 840 480 Output: Urine 3600 300 Other: # Voids 1 1 - Labs CBC & Chem 7: 12/01/19 07:00 12/01/19 07:00 Labs: Abnormal Lab Results - Last 24 Hours (Table) 11/30/19 12/01/19 12/01/19 Range/Units 16:05 07:00 07:00 Hgb 11.0 L (11.4-16.0) gm/dL RDW 15.8 H (11.5-15.5) % PT (9.0-12.0) sec INR (<1.2) D-Dimer 0.63 H (<0.60) mg/L FEU Sodium 131 L (137-145) mmol/L BUN 41 H (7-17) mg/dL 12/01/19 Range/Units 10:22 Hgb (11.4-16.0) gm/dL RDW (11.5-15.5) % PT 14.5 H (9.0-12.0) sec INR 1.5 H (<1.2) D-Dimer (<0.60) mg/L FEU Sodium (137-145) mmol/L BUN (7-17) mg/dL
--- NOTE | 2019-12-01 16:01 | PN ---
PROGRESS NOTE Patient is seen for followup for hyponatremia. The patient received a dose of tolvaptan yesterday and serum sodium has improved to 131 today. She is comfortable. Patient denies any significant complaints. PHYSICAL EXAMINATION: Blood pressure was 114/65, heart rate 74 per minute, she is afebrile. Examination of the heart S1, S2. Examination of the lungs, bilateral breath sounds are heard. Abdomen is soft, obese. Examination of lower extremities shows edema 1+ bilaterally. IMPROVEMENT SPECIALIST exam grossly intact. Chronic skin changes noted in the lower extremities. LABS: Show sodium 131, potassium 4.1, chloride 101, BUN 41, creatinine 0.62, hemoglobin 11.0. ASSESSMENT: 1. Hyponatremia, currently improved. The patient received a dose of tolvaptan yesterday. She can be discharged from nephrology standpoint. We can resume loop diuretics. The patient will continue to hold off on thiazide diuretics. 2. History of congestive heart failure, ejection fraction 45-50%. 3. Acute kidney injury, mostly prerenal, currently improved. 4. Syncopal episode, most likely vasovagal along with some degree of hypovolemia. PLAN: Resume Lasix once a day post discharge and monitor electrolytes closely as outpatient. MMODL / IJN: [id number] /
--- NOTE | 2019-12-01 16:10 | NM ---
EXAMINATION TYPE: NM pul vent and perfuse DATE OF EXAM: 12/01/2019 COMPARISON: Radiograph 11/27/2019 HISTORY: 64-year-old female shortness of breath, elevated d-dimer TECHNIQUE: Utilizing inhalation of 38.9 mCi Tc 99m DTPA aerosol and intravenous injection of 5.3 mCi of Tc 99m MAA, ventilation and perfusion images are acquired post injection in multiple projections. FINDINGS: Solitary moderate-sized perfusion defect along the posterior left midlung. No other mismatched perfus ion defects are seen. IMPRESSION: Intermediate probability for pulmonary embolus. Note that this interpretation is being made in the ab sence of a chest radiograph performed within 24 hours.
--- NOTE | 2019-12-01 16:26 | PN ---
PROGRESS NOTE DATE OF SERVICE: 12/01/2019 I am covering for Dr. Lee. This 64-year-old woman was admitted with syncope and hyponatremia. Patient also had some low blood pressures. The blood pressure has been fluctuating at this time. The patient also had renal failure which is also being closely monitored. Patient also had subtherapeutic INR despite several days of Coumadin. The INR is 1.4 after 10 mg of Coumadin. D-dimer is elevated 0.6. V/Q scan has been requested. The patient also reports difficulties with coping with multiple medication also. We will discuss with Dr. Lee regarding that. D-dimer was elevated. Past medical history reviewed. REVIEW OF SYSTEMS: CARDIOVASCULAR SYSTEM: No angina, or palpitations. RESPIRATORY SYSTEM: As mentioned earlier. GI: As mentioned earlier. no dysuria. Nervous systems: No numbness or weakness. CURRENT MEDICATIONS: 1. Tylenol. 2. [place]. 3. DuoNeb. 4. Abilify. 5. Aspirin. 6. Lipitor. 7. Plavix. 8. Flexeril. 9. Voltaren. 10.Folic acid. 11.Heparin. 12.Synthroid. 13.Cozaar. 14.Lopressor. 15.Narcan. 16.Nitrostat. 17.Protonix. 18.Lyrica. 19.Requip. 20.Senokot-S. 21.Aldactone. 22.Coumadin 10 mg daily. PHYSICAL EXAM: Patient is alert, oriented x3. Pulse 74, blood pressure 140/62, respirations 20, temperature normal. Pulse ox 98% on 4 L. No orthostatic changes. HEENT: Conjunctivae normal. NECK: No JVD. CARDIOVASCULAR: S1, S2 muffled. RESPIRATORY: Breath sounds diminished in the bases. Scattered rhonchi. No crackles. ABDOMEN: Soft, nontender. No mass palpable. LEGS no edema. No swelling. NERVOUS SYSTEM: Higher functions as mentioned. Moves all four limbs. No focal deficits. LYMPHATICS: No lymph nodes palpable in the neck, axillae or groin. SKIN: No ulcer, no rash and no bleeding. JOINTS: No active deforming arthropathy. LABS: WBC 5.1, hemoglobin 11. INR 1.5. Sodium 131. ASSESSMENT: 1. Syncope, possibly vasovagal, possibly secondary to hypovolemia. 2. Acute kidney injury present on admission secondary to hypovolemia. 3. Hyponatremia secondary to hypovolemia. 4. Acute renal failure with acute tubular necrosis. 5. Increased WBC. 6. Anemia. 7. History of asthma. 8. History of coronary artery disease. 9. History of congestive heart failure. 10.Chronic obstructive pulmonary disease. 11.History of cerebrovascular accident, transient ischemic attack. 12.History of deep vein thrombosis. 13.History of fibromyalgia. 14.History of gastroesophageal reflux disease. 15.History of gastrointestinal bleed. 16.Hypertension. 17.History of myocardial infarction. 18.History of degenerative joint disease. 19.History of pulmonary embolism. 20.Seizure disorder. 21.Sleep apnea. 22.History of takotsubo syndrome. 23.History of bariatric surgery. 24.History of anxiety, depression. RECOMMENDATIONS AND DISCUSSION: I recommend to continue current medications, monitoring, management and symptomatic treatment. Otherwise, at this time I recommend continue with current medications. Continue with Coumadin 10 mg. otherwise the Case Management and web content & social media manager to evaluate to address the other options like Xarelto and/or Eliquis. The patient had- apparently high cost for Xarelto previously. We will discuss with Dr. Lee, who will address the multiple other issues as mentioned earlier. MMODL / IJN: [id number] /
[2019-12-01] MEDS: WARFARIN 10 MG TAB PO SCH (16:35)
[2019-12-01 16:50] VITALS: RESP 18
[2019-12-01] MEDS ORDERED: LOSARTAN 25 MG TAB PO SCH (21:00)
[2019-12-01] MEDS: rOPINIRole HCL 4 MG TABLET PO SCH (21:31)
[2019-12-01] MEDS: ACETAMINOPHEN TAB 325 MG TAB PO PRN ×2 (21:32→23:23)
[2019-12-01] MEDS: ATORVASTATIN 40 MG TAB PO SCH (21:32)
[2019-12-02] MEDS: LEVOTHYROXINE 88 MCG TAB PO SCH (04:49)
[2019-12-02 07:39] LABS: Basophils # (A) 0.1 k/uL (0-0.2); Basophils % (A) 1 %; Eosinophils # (A) 0.3 k/uL (0-0.7); Eosinophils % (A) 4 %; HCT 33.4 % (34.0-46.0); HGB 10.4 gm/dL (11.4-16.0); Hypochromasia Slight; Lymphocytes # (A) 1.8 k/uL (1.0-4.8); Lymphocytes % (A) 22 %; MCH 27.9 pg (25.0-35.0); MCHC 31.2 g/dL (31.0-37.0); MCV 89.4 fL (80.0-100.0); Mean Platelet Volume 7.5; Monocytes # (A) 0.5 k/uL (0-1.0); Monocytes % (A) 6 %; Neutrophils # (A) 5.5 k/uL (1.3-7.7); Neutrophils % (A) 67 %; Platelet Count 323 k/uL (150-450); RBC 3.74 m/uL (3.80-5.40); RDW 15.9 % (11.5-15.5); WBC 8.3 k/uL (3.8-10.6)
[2019-12-02 07:49] LABS: African American GFR (CKD) >90 (>60 ml/min/1.73 sqM); Anion Gap 7 mmol/L; Blood Urea Nitrogen 32 mg/dL (7-17); Calcium 8.9 mg/dL (8.4-10.2); Carbon Dioxide 27 mmol/L (22-30); Chloride 99 mmol/L (98-107); Glucose 123 mg/dL (74-99); Non-African American GFR(CKD) >90 (>60 ml/min/1.73 sqM); Potassium 4.5 mmol/L (3.5-5.1); Sodium 133 mmol/L (137-145)
[2019-12-02 07:52] LABS: INR 1.9 (<1.2); Prothrombin Time 18.9 sec (9.0-12.0)
[2019-12-02] MEDS: METOPROLOL TARTRATE 12.5 MG TAB PO SCH (09:22)
[2019-12-02] MEDS: POTASSIUM CHLORIDE ER 20 MEQ TAB.ER PO SCH (09:23)
[2019-12-02] MEDS: CLOPIDOGREL 75 MG TAB PO SCH (09:23)
[2019-12-02] MEDS: PANTOPRAZOLE 40 MG TABLET PO SCH (09:23)
[2019-12-02] MEDS: HEPARIN SODIUM,PORCINE 5,000 UNIT/ML 1 ML VIAL SQ SCH (09:23)
[2019-12-02] MEDS: TOPIRAMATE 25 MG TAB PO SCH (09:23)
[2019-12-02] MEDS: ASPIRIN 81 MG PO SCH (09:23)
[2019-12-02] MEDS: SENNOSIDES-DOCUSATE SODIUM 1 EACH TAB PO SCH (09:23)
[2019-12-02] MEDS: SPIRONOLACTONE 25 MG TAB PO SCH (09:23)
[2019-12-02] MEDS: ARIPiprazole 5 MG TAB PO SCH ×2 (09:24→11:17)
[2019-12-02] MEDS: VORTIOXETINE HYDROBROMIDE 10 MG TABLET PO SCH (09:24)
[2019-12-02] MEDS ORDERED: MAGNESIUM HYDROXIDE 2,400 MG/10 ML CUP PO PRN (09:28)
[2019-12-02] MEDS ORDERED: ARIPiprazole 10 MG TAB PO SCH (09:30)
[2019-12-02] MEDS: IPRATROPIUM-ALBUTEROL 3 ML NEB INHALATION SCH ×2 (09:40→12:43)
[2019-12-02] MEDS: ACETAMINOPHEN TAB 325 MG TAB PO PRN (10:34)
--- NOTE | 2019-12-02 10:47 | P.PN ---
Subjective Progress Note Date: 12/02/19 CHIEF COMPLAINT: Syncope HISTORY OF PRESENT ILLNESS: Patient examined this morning at the bedside. She denies chest pain or shortness of breath at the time of examination. Vital signs stable. Patient had a VQ scan performed revealing intermediate probability for pulmonary embolism. Vital signs are stable. INR 1.9 today. PHYSICAL EXAM: VITAL SIGNS: Reviewed. GENERAL: Well-developed in no acute distress. HEENT: Head is normocephalic. Pupils are equal, round. Sclerae anicteric. Mucous membranes of the mouth are moist. Neck supple. No JVD or thyromegaly LUNGS: Respirations even and unlabored. Lungs essentially clear to auscultation bilaterally. HEART: Regular rate and rhythm. S1 and S2 heard. EXTREMITIES: Normal range of motion. No clubbing or cyanosis. Peripheral pulses intact. No lower extremity edema NEUROLOGIC: Awake and alert. Oriented x 3. ASSESSMENT: 1. Possible syncope 2. Coronary artery disease, with recent cardiac cath performed in October 2019 with drug-eluting stent to the diagonal 3. Hyperlipidemia 4. Hypertension 5. History of DVT/PE, on long-term anticoagulation with Coumadin 6. Subtherapeutic INR, secondary to patient not taking medication outpatient, improving 7. COPD, on home O2 8. Acute kidney injury, resolved PLAN: -Continue current cardiac medications -Continue Coumadin and monitor INR -Patient is stable for discharge from a cardiac perspective. She is to follow up outpatient with Dr. Charles Nurse practitioner note has been reviewed by physician. Signing provider agrees with the documented findings, assessment, and plan of care. Objective - Vital Signs Vital signs: Vital Signs Temp 97.8 F 12/02/19 04:00 Pulse 69 12/02/19 04:00 Resp 18 12/02/19 04:00 BP 120/89 12/02/19 04:00 Pulse Ox 97 12/02/19 04:00 Intake & Output 12/01/19 12/02/19 12/02/19 18:59 06:59 18:59 Intake Total 1260 Output Total 800 1000 Balance 460 -1000 Weight 122.3 kg Intake: Oral 1260 Output: Urine 800 1000 Other: # Voids 1 - Labs CBC & Chem 7: 12/02/19 05:57 12/02/19 05:57 Labs: Abnormal Lab Results - Last 24 Hours (Table) 0812/02/19 12/02/19 Range/Units 10:22 05:57 05:57 RBC 3.74 L (3.80-5.40) m/uL Hgb 10.4 L (11.4-16.0) gm/dL Hct 33.4 L (34.0-46.0) % RDW 15.9 H (11.5-15.5) % PT 14.5 H (9.0-12.0) sec INR 1.5 H (<1.2) Sodium 133 L (137-145) mmol/L BUN 32 H (7-17) mg/dL Glucose 123 H (74-99) mg/dL 12/02/19 Range/Units 05:57 RBC (3.80-5.40) m/uL Hgb (11.4-16.0) gm/dL Hct (34.0-46.0) % RDW (11.5-15.5) % PT 18.9 H (9.0-12.0) sec INR 1.9 H (<1.2) Sodium (137-145) mmol/L BUN (7-17) mg/dL Glucose (74-99) mg/dL
[2019-12-02 11:11] VITALS: TEMP 96
[2019-12-02] MEDS: MULTIVITAMINS, THERA 1 EACH TAB PO SCH (13:40)
[2019-12-02] MEDS: FOLIC ACID 1 MG TAB PO SCH (13:40)
[2019-12-02] MEDS: THIAMINE 100 MG TAB PO SCH (13:40)
[2019-12-02 15:01] VITALS: BP 146/101; PULSE 72
--- NOTE | 2019-12-02 15:16 | P.DS ---
Providers Date of admission: 11/27/19 11:20 Expected date of discharge: 12/02/19 Attending physician: Edd Lee MD Consults: 11/27/19 11:22 Consult Physician Urgent Consulting Provider: Tom Nguyen Consult Reason/Comments: syncope Do you want consulting provider notified?: Yes 11/28/19 10:59 Consult Physician Routine Consulting Provider: Thien Harper Consult Reason/Comments: hypervolemic hyponatremia Do you want consulting provider notified?: Yes Primary care physician: Edd Lee MD Hospital Course: Final Diagnoses: (1) Syncope and collapse, suspect vasovagal exacerbated by medication noncompliance and electronic derangement, hypovolemia Current Visit: Yes Status: Acute Code(s): R55 - SYNCOPE AND COLLAPSE SNOMED Code(s): 809135918 (2) Acute kidney injury secondary to hypovolemia. Acute renal failure with acut e tubular necrosis. Current Visit: Yes Status: Acute Code(s): N17.9 - ACUTE KIDNEY FAILURE, UNSPECIFIED SNOMED Code(s): 57000141 (3) Hyponatremia. Current Visit: Yes Status: Acute Code(s): E87.1 - HYPO-OSMOLALITY AND HYPONATREMIA SNOMED Code(s): 23699169 (4) Hypokalemia Current Visit: Yes Status: Acute Code(s): E87.6 - HYPOKALEMIA SNOMED Code(s): 88434743 (5) CHF (congestive heart failure) Current Visit: No Status: Acute Code(s): I50.9 - HEART FAILURE, UNSPECIFIED SNOMED Code(s): 74109634 (6) leukocytosis (7) chronic pain syndrome (8) major depression (9) CAD (10) chronic hypoxic hypercapnic respiratory failure, wears 3 L nasal cannula O2 at home (11) subtherapeutic INR Hospital course: Marlin Veras is a 64 yo F with PMH CAD, recent stenting last month, diastolic CHF, DVT/PE who presented to the ED via EMS after a syncopal event at home. Pt notes that had been constipated the past few days, she woke up at 2 am the day of admission with diarrhea, she apparently passed out on the toilet and was found by her significant other at a 8 am. She had apparently stopped taking many of her medications for a few days as she had been feeling overwhelmed and that she was on too much medicine. On presentation vitals stable, WBC 16.8k, Na 123, Cr 1.5. EKG stable, CT head negative. 11/29/2019 evaluated by nephrology with recommendations noted and appreciated. Maintained on fluid restrictions. Sodium improving up to 125, potassium normalized. BUN 39 and creatinine 0.76. Uric acid elevated, 9.1. Sleeping well. Complains of significant anxiety. Staff reports patient had been crying. Reports minimal lightheadedness, no dizziness. Denies chest pain, palpitations or shortness of breath. Significant clinical improvement. Cleared by all consults for discharge. Patient is being discharged home in a stable condition with guarded prognosis. The impression and plan of care has been dictated as directed. : I performed a history and examination of this patient, discussed the same with the dictator. I agree with the dictator's note ,documented as a scribe. Any additional findings or plans will be noted. Patient Condition at Discharge: Stable Plan - Discharge Summary Discharge Rx Participant: No New Discharge Prescriptions: New ARIPiprazole [Abilify] 10 mg PO DAILY #30 tab Warfarin [Coumadin] 10 mg PO DAILY@1800 #10 tab Losartan [Cozaar] 12.5 mg PO HS #30 tab Folic Acid 1 mg PO DAILY@1200 #30 tab Multivitamins, Thera [Multivitamin (formulary)] 1 each PO DAILY@1200 #30 tab Sennosides-Docusate Sodium [Senokot-S] 2 each PO HS #60 tab Thiamine [Vitamin B-1] 100 mg PO DAILY@1200 #30 tab Continue Levothyroxine Sodium [Synthroid] 88 mcg PO DAILY Cyclobenzaprine [Flexeril] 5 mg PO TID PRN PRN Reason: Muscle Spasm Vortioxetine Hydrobromide [Trintellix] 10 mg PO DAILY rOPINIRole HCL [Requip] 3 mg PO DAILY@2100 Ergocalciferol [Vitamin D2 (DRISDOL)] 50,000 unit PO RALPH rOPINIRole HCL [Requip] 4 mg PO HS@2300 Pregabalin [Lyrica] 200 mg PO TID Hydrocodone/Acetaminophen [[place] 7.5-325] 1 tab PO TID Esomeprazole Magnesium 40 mg PO DAILY Topiramate 50 mg PO BID Diclofenac Sodium Gel [Voltaren Gel] 2 gm TOPICAL QID PRN PRN Reason: Pain Aspirin 81 mg PO DAILY #30 chew Atorvastatin [Lipitor] 40 mg PO HS #30 tab Nitroglycerin Sl Tabs [Nitrostat] 0.4 mg SUBLINGUAL Q5M PRN #30 tab PRN Reason: Chest Pain Clopidogrel [Plavix] 75 mg PO DAILY #30 tab Ipratropium-Albuterol Nebulize [Duoneb 0.5 mg-3 mg/3 ml Soln] 3 ml INHALATION QID #120 dose Spironolactone [Aldactone] 25 mg PO DAILY #30 tab Metoprolol Tartrate 12.5 mg PO DAILY@1700 Potassium Chloride [Klor-Con 20] 20 meq PO BID Changed Furosemide [Lasix] 40 mg PO DAILY #60 tab Discontinued Amitriptyline HCl [Elavil] 75 mg PO HS Diclofenac Potassium [Cataflam] 50 mg PO BID Losartan [Cozaar] 50 mg PO HS #30 tab Metoprolol Tartrate [Lopressor] 25 mg PO DAILY #30 tab metOLazone [Zaroxolyn] 2.5 mg PO DAILY Warfarin Sodium [Jantoven] 7.5 mg PO DAILY Discharge Medication List Levothyroxine Sodium [Synthroid] 88 mcg PO DAILY 08/09/13 [History] Cyclobenzaprine [Flexeril] 5 mg PO TID PRN 11/04/15 [History] Vortioxetine Hydrobromide [Trintellix] 10 mg PO DAILY 11/04/15 [History] rOPINIRole HCL [Requip] 3 mg PO DAILY@2100 11/09/17 [History] Diclofenac Sodium Gel [Voltaren Gel] 2 gm TOPICAL QID PRN 10/18/19 [History] Ergocalciferol [Vitamin D2 (DRISDOL)] 50,000 unit PO RALPH 10/18/19 [History] Esomeprazole Magnesium 40 mg PO DAILY 10/18/19 [History] Hydrocodone/Acetaminophen [[place] 7.5-325] 1 tab PO TID 10/18/19 [History] Pregabalin [Lyrica] 200 mg PO TID 10/18/19 [History] Topiramate 50 mg PO BID 10/18/19 [History] rOPINIRole HCL [Requip] 4 mg PO HS@2300 10/18/19 [History] Aspirin 81 mg PO DAILY #30 chew 10/20/19 [Rx] Atorvastatin [Lipitor] 40 mg PO HS #30 tab 10/20/19 [Rx] Clopidogrel [Plavix] 75 mg PO DAILY #30 tab 10/20/19 [Rx] Nitroglycerin Sl Tabs [Nitrostat] 0.4 mg SUBLINGUAL Q5M PRN #30 tab 10/20/19 [Rx] Ipratropium-Albuterol Nebulize [Duoneb 0.5 mg-3 mg/3 ml Soln] 3 ml INHALATION QID #120 dose 10/21/19 [Rx] Spironolactone [Aldactone] 25 mg PO DAILY #30 tab 10/21/19 [Rx] Metoprolol Tartrate 12.5 mg PO DAILY@1700 11/27/19 [History] Potassium Chloride [Klor-Con 20] 20 meq PO BID 11/27/19 [History] ARIPiprazole [Abilify] 10 mg PO DAILY #30 tab 12/02/19 [Rx] Folic Acid 1 mg PO DAILY@1200 #30 tab 12/02/19 [Rx] Furosemide [Lasix] 40 mg PO DAILY #60 tab 12/02/19 [Rx] Losartan [Cozaar] 12.5 mg PO HS #30 tab 12/02/19 [Rx] Multivitamins, Thera [Multivitamin (formulary)] 1 each PO DAILY@1200 #30 tab 12/02/19 [Rx] Sennosides-Docusate Sodium [Senokot-S] 2 each PO HS #60 tab 12/02/19 [Rx] Thiamine [Vitamin B-1] 100 mg PO DAILY@1200 #30 tab 12/02/19 [Rx] Warfarin [Coumadin] 10 mg PO DAILY@1800 #10 tab 12/02/19 [Rx] Follow up Appointment(s)/Referral(s): Edd Lee MD [Primary Care Provider] - 12/06/19 10:45 am Jairo Charles MD [STAFF PHYSICIAN] - 12/23/19 11:15 am (Carotid doppler on Dec 03 Echocardiogram on Dec 05) Ambulatory/Diagnostic Orders: Complete Blood Count w/diff [LAB.AMB] Time Frame: 12/05/19, Location: None Selected Patient Instructions/Handouts: Hyponatremia (DC), Hypokalemia (DC), Syncope (DC) Discharge Disposition: HOME SELF-CARE
--- NOTE | 2019-12-02 17:32 | PN ---
PROGRESS NOTE Patient is seen for followup for hyponatremia, her serum sodium has improved significantly. It is up to 133 now. She did get 1 dose of tolvaptan 2 days ago. Patient can resume her home dose of loop diuretics and she is stable for discharge from nephrology standpoint. Patient was maintained on Lasix 40 mg daily prior to admission. PHYSICAL EXAMINATION: Today patient is comfortable, awake, not in any acute distress. Blood pressure is 105/57, heart rate 79 per minute, she is afebrile. Examination of the heart, S1, S2. Examination of the lungs, bilateral breath sounds are heard. ABDOMEN: Soft, nontender, obese. Examination of the lower extremities shows 1+ edema bilateral lower extremities. TRACK COACH exam grossly intact. LABS: Show sodium 133, potassium 4.5, chloride 99, CO2 is 27, BUN 32, creatinine 0.69. ASSESSMENT: 1. Hyponatremia, initially hypovolemic, currently mildly hypervolemic. Serum sodium continues to improve. The patient can resume her home dose of loop diuretics, Lasix 40 mg p.o. daily. She should continue with some degree of fluid restriction. 2. History of CHF, ejection fraction 45%-50%. 3. Acute kidney injury, mostly prerenal, now resolved. 4. Morbid obesity. PLAN: Resume Lasix 40 mg daily. Monitor electrolytes as outpatient. MMODL / IJN: [id number] /
--- NOTE | 2019-12-04 09:15 | CDI ---
Documentation Clarification Form Date: 12/04/19 From: Alina Lara Phone: If you have a question about this query, please contact Cristine Roa Traffic Maintenance Supervisor at [phone] between 8am and 5pm. Admit Date: 11/27/19 Discharge Date:12/02/19 Patient Name: Marlin Veras Visit Number: [id number] ATTENTION: The Clinical Documentation Specialists (CDI) and [facility] Coding Staff appreciate your assistance in clarifying documentation. Please respond to the clarification below the line at the bottom and electronically sign. The CDI & [facility] Coding staff will review the response and follow-up if needed. Please note: Queries are made part of the Legal Health Record. If you have any questions, please contact the author of this message via ITS. Dear Dr. Lee Your patient has a documented diagnosis of acute kidney injury with acute tubular necrosis - which may lack sufficient clinical evidence/support. Acute renal failure with acute tubular necrosis is documented in the discharge summary and in Dr. Mccoy's 11.29 & 11/30 progress notes. Acute kidney injury mostly prerenal is documented in the nephrology consult note and progress notes and in your 11/28 progress note History/Risk Factors: Hypovolemia, hyponatremia, hypokalemia, medication noncompliance Clinical Indicators: elevated creatinine, Baseline BUN/CR/GFR: 32/0.62/>90 Current BUN/CR/GFR: 64/1.50/36 Urine: No casts Treatment: Consults: Nephrology documented acute kidney injury mostly prerenal IV Fluids: NS at 75 mls/hr In your opinion, what is the most clinically appropriate diagnosis for this patient? Acute kidney injury with acute tubular necrosis Acute kidney injury prerenal Other explanation of clinical findings Unable to determine (no explanation for clinical findings) Acute kidney injury prerenal MTDD
== END 2019-12-02 14:51 | disposition home or self-care (01) | DRG 641 ==
LOC: EC 08:36 → 3SCARD 11:20 → 3NCARDOBS 11-30 19:49 → 3SCARD 11-30 19:49
PROVIDERS: ADMIT Family Medicine; ATTEND Family Medicine
DX: E87.1 Hypo-osmolality and hyponatremia (principal); I50.42 Chronic combined systolic (congestive) and diastolic (congestive) heart failure; J96.11 Chronic respiratory failure with hypoxia; J96.12 Chronic respiratory failure with hypercapnia; Z68.42 Body mass index [BMI] 45.0-49.9, adult; N17.9 Acute kidney failure, unspecified; I27.20 Pulmonary hypertension, unspecified; I11.0 Hypertensive heart disease with heart failure; E86.1 Hypovolemia; D64.9 Anemia, unspecified; D72.829 Elevated white blood cell count, unspecified; E03.9 Hypothyroidism, unspecified; E66.01 Morbid (severe) obesity due to excess calories; E78.5 Hyperlipidemia, unspecified; E87.6 Hypokalemia; F32.9 Major depressive disorder, single episode, unspecified; F41.9 Anxiety disorder, unspecified; G40.909 Epilepsy, unspecified, not intractable, without status epilepticus; J44.9 Chronic obstructive pulmonary disease, unspecified; G47.33 Obstructive sleep apnea (adult) (pediatric); G89.4 Chronic pain syndrome; H91.90 Unspecified hearing loss, unspecified ear; I25.10 Atherosclerotic heart disease of native coronary artery without angina pectoris; I25.2 Old myocardial infarction; I44.0 Atrioventricular block, first degree; M41.9 Scoliosis, unspecified; M79.7 Fibromyalgia; R79.1 Abnormal coagulation profile; T50.2X5A Adverse effect of carbonic-anhydrase inhibitors, benzothiadiazides and other diuretics, initial encounter; B37.2 Candidiasis of skin and nail; K21.9 Gastro-esophageal reflux disease without esophagitis; R55 Syncope and collapse; K58.9 Irritable bowel syndrome, unspecified; T50.916A Underdosing of multiple unspecified drugs, medicaments and biological substances, initial encounter; H93.13 Tinnitus, bilateral; M19.90 Unspecified osteoarthritis, unspecified site; S00.511A Abrasion of lip, initial encounter; G62.9 Polyneuropathy, unspecified; M81.0 Age-related osteoporosis without current pathological fracture; M54.5 Low back pain; G25.81 Restless legs syndrome; G43.909 Migraine, unspecified, not intractable, without status migrainosus; T39.395A Adverse effect of other nonsteroidal anti-inflammatory drugs [NSAID], initial encounter; Z91.128 Patient's intentional underdosing of medication regimen for other reason; Z79.01 Long term (current) use of anticoagulants; Z79.02 Long term (current) use of antithrombotics/antiplatelets; Z79.82 Long term (current) use of aspirin; Z79.890 Hormone replacement therapy; Z79.899 Other long term (current) drug therapy; Z88.1 Allergy status to other antibiotic agents; Z88.5 Allergy status to narcotic agent; Z88.2 Allergy status to sulfonamides; Z88.8 Allergy status to other drugs, medicaments and biological substances; Z98.84 Bariatric surgery status; Z99.81 Dependence on supplemental oxygen; Z95.5 Presence of coronary angioplasty implant and graft; Z90.710 Acquired absence of both cervix and uterus; Z86.718 Personal history of other venous thrombosis and embolism; Z86.711 Personal history of pulmonary embolism; Z91.81 History of falling; Z87.01 Personal history of pneumonia (recurrent); Z86.73 Personal history of transient ischemic attack (TIA), and cerebral infarction without residual deficits; Z86.010 Personal history of colon polyps; Z98.51 Tubal ligation status; Z87.11 Personal history of peptic ulcer disease; Z98.890 Other specified postprocedural states; Z82.49 Family history of ischemic heart disease and other diseases of the circulatory system; Z80.9 Family history of malignant neoplasm, unspecified; Z83.518 Family history of other specified eye disorder; W18.11XA Fall from or off toilet without subsequent striking against object, initial encounter
CPT/HCPCS: 36415; 70450; 71046; 78582; 80048; 80053; 81001; 83735; 83935; 84295; 84300; 84443; 84484; 84550; 85025; 85379; 85610; 85730; 93005; 96374; 99285

== ENCOUNTER 2019-12-05 22:15 | Emergency (ER) | payer MEDICARE ==
[2019-12-05 22:22] VITALS: RESP 18
--- NOTE | 2019-12-05 23:02 | ED ---
General Adult HPI - General Chief complaint: GI Bleed Stated complaint: Blood in Stool Time Seen by Provider: 12/05/19 22:28 Source: patient Mode of arrival: ambulatory Limitations: no limitations - History of Present Illness Initial comments: Patient a 64-year-old woman presenting due to concern that her Coumadin level may be too high. The patient states that she has had brief episodes of epistaxis for approximately the past 4 mornings, and then also noticed that there was blood with her last bowel movement which was earlier today. Patient states that she takes 10 mg of Coumadin daily due to history of PE. Patient denies dyspnea, palpitations, chest pain, lightheadedness or syncope. She states that basically she had noticed some red blood following her last bowel movement but states that it seems to have stopped. On terms of the nosebleeds, they have been brief and self-limited. She does wear nasal cannula oxygen. -: days(s) Severity scale (1-10): 0 Consistency: intermittent Improves with: none Worsens with: none Associated Symptoms: denies other symptoms - Related Data Home Medications Medication Instructions Recorded Confirmed Levothyroxine Sodium [Synthroid] 88 mcg PO DAILY 08/09/13 11/27/19 Cyclobenzaprine [Flexeril] 5 mg PO TID PRN 11/04/15 11/27/19 Vortioxetine Hydrobromide 10 mg PO DAILY 11/04/15 11/27/19 [Trintellix] rOPINIRole HCL [Requip] 3 mg PO DAILY@2100 11/09/17 11/27/19 Diclofenac Sodium Gel [Voltaren 2 gm TOPICAL QID PRN 10/18/19 11/27/19 Gel] Ergocalciferol [Vitamin D2 50,000 unit PO RALPH 10/18/19 11/27/19 (DRISDOL)] Esomeprazole Magnesium 40 mg PO DAILY 10/18/19 11/27/19 Hydrocodone/Acetaminophen [[place] 1 tab PO TID 10/18/19 11/27/19 7.5-325] Pregabalin [Lyrica] 200 mg PO TID 10/18/19 11/27/19 Topiramate 50 mg PO BID 10/18/19 11/27/19 rOPINIRole HCL [Requip] 4 mg PO HS@2300 10/18/19 11/27/19 Metoprolol Tartrate 12.5 mg PO DAILY@1700 11/27/19 11/27/19 Potassium Chloride [Klor-Con 20] 20 meq PO BID 11/27/19 11/27/19 Previous Rx's Medication Instructions Recorded Aspirin 81 mg PO DAILY #30 chew 10/20/19 Atorvastatin [Lipitor] 40 mg PO HS #30 tab 10/20/19 Clopidogrel [Plavix] 75 mg PO DAILY #30 tab 10/20/19 Nitroglycerin Sl Tabs [Nitrostat] 0.4 mg SUBLINGUAL Q5M PRN #30 tab 10/20/19 Ipratropium-Albuterol Nebulize 3 ml INHALATION QID #120 dose 10/21/19 [Duoneb 0.5 mg-3 mg/3 ml Soln] Spironolactone [Aldactone] 25 mg PO DAILY #30 tab 10/21/19 ARIPiprazole [Abilify] 10 mg PO DAILY #30 tab 12/02/19 Folic Acid 1 mg PO DAILY@1200 #30 tab 12/02/19 Furosemide [Lasix] 40 mg PO DAILY #60 tab 12/02/19 Losartan [Cozaar] 12.5 mg PO HS #30 tab 12/02/19 Multivitamins, Thera [Multivitamin 1 each PO DAILY@1200 #30 tab 12/02/19 (formulary)] Sennosides-Docusate Sodium 2 each PO HS #60 tab 12/02/19 [Senokot-S] Thiamine [Vitamin B-1] 100 mg PO DAILY@1200 #30 tab 12/02/19 Warfarin [Coumadin] 10 mg PO DAILY@1800 #10 tab 12/02/19 Allergies Allergy/AdvReac Type Severity Reaction Status Date / Time cefprozil [From Cefzil] Allergy Unknown Verified 12/05/19 22:22 Sulfa (Sulfonamide Allergy Rash/Hives Verified 12/05/19 22:22 Antibiotics) valdecoxib [From Bextra] Allergy Unknown Verified 12/05/19 22:22 codeine AdvReac DIFFICULTY Verified 12/05/19 22:22 URINATING metaxalone [From Skelaxin] AdvReac Nausea & Verified 12/05/19 22:22 Vomiting Review of Systems ROS Statement: Those systems with pertinent positive or pertinent negative responses have been documented in the HPI. ROS Other: All systems not noted in ROS Statement are negative. Constitutional: Denies: fever, chills ENT: Reports: as per HPI, epistaxis Respiratory: Denies: cough, dyspnea, hemoptysis Cardiovascular: Denies: chest pain, palpitations, edema, syncope Gastrointestinal: Reports: constipation, hematochezia. Denies: abdominal pain, vomiting, diarrhea, hematemesis, melena Genitourinary: Denies: dysuria, hematuria Musculoskeletal: Denies: back pain Skin: Denies: rash Neurological: Denies: headache, weakness Hematological/Lymphatic: Reports: easy bleeding (Taking Coumadin) Past Medical History Past Medical History: Asthma, Coronary Artery Disease (CAD), Chest Pain / Angina, Heart Failure, COPD, CVA/TIA, Deep Vein Thrombosis (DVT), Fibromyalgia, GERD/Reflux, GI Bleed, Hearing Disorder / Deafness, Hyperlipidemia, Hypertension, Memory Impairment, Myocardial Infarction ([place]), Osteoarthritis (OA), Pneumonia, Pulmonary Embolus (PE), Respiratory Disorder, Seizure Disorder, Skin Disorder, Sleep Apnea/CPAP/BIPAP, Thyroid Disorder Additional Past Medical History / Comment(s): 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 Last Myocardial Infarction Date:: 2002 History of Any Multi-Drug Resistant Organisms: None Reported Past Surgical History: Bariatric Surgery, Hernia Repair, Hysterectomy, Orthopedic Surgery, Tubal Ligation Additional Past Surgical History / Comment(s): 10/19/19 PCI with stent, EGDs, colonoscopy/benign polyps, gastric bypass with revision, ventral and hiatal hernia repair, bladder suspension, R rotator curr repair/revision, L knee arthroscopy, rectocele, perinealplasty, Past Anesthesia/Blood Transfusion Reactions: Motion Sickness Past Psychological History: Anxiety, Depression Smoking Status: Never smoker - Past Family History Mother Family Medical History: Coronary Artery Disease (CAD), Eye Disorder Additional Family Medical History / Comment(s): Mother is 91 yrs old Father Family Medical History: Myocardial Infarction ([place]) Additional Family Medical History / Comment(s): Father of a massive [place] at the age of 53 yrs. Sister(s) Family Medical History: Cancer General Exam Limitations: no limitations General appearance: alert, in no apparent distress Head exam: Present: atraumatic, normocephalic Eye exam: Present: normal appearance. Absent: scleral icterus, conjunctival injection ENT exam: Present: normal oropharynx, other (Resolving contusion to the left cheek) Neck exam: Present: normal inspection Respiratory exam: Present: normal lung sounds bilaterally. Absent: respiratory distress, wheezes, rales, rhonchi, stridor Cardiovascular Exam: Present: regular rate, normal rhythm, normal heart sounds. Absent: systolic murmur, diastolic murmur, rubs, gallop GI/Abdominal exam: Present: soft, other (Ecchymosis to the left lower quadrant of the abdominal wall, states related to subcutaneous heparin.). Absent: distended, tenderness, guarding, rebound, rigid, mass Rectal exam: Present: other (Skin tag with recent bleeding). Absent: tenderness Extremities exam: Present: normal inspection, normal capillary refill. Absent: pedal edema, calf tenderness Back exam: Present: normal inspection. Absent: CVA tenderness (R), CVA tenderness (L) Neurological exam: Present: alert Skin exam: Present: warm, dry, intact, normal color, other (As above). Absent: rash Course Vital Signs 12/05/19 22:18 Temperature 98 F Pulse Rate 76 Respiratory 18 Rate Blood Pressure 132/89 O2 Sat by Pulse 94 L Oximetry Medical Decision Making - Lab Data Result diagrams: 12/05/19 22:52 12/05/19 22:52 Lab Results 12/05/19 12/05/19 12/05/19 Range/Units 22:52 22:52 22:52 WBC 9.8 (3.8-10.6) k/uL RBC 3.98 (3.80-5.40) m/uL Hgb 11.0 L (11.4-16.0) gm/dL Hct 33.8 L (34.0-46.0) % MCV 84.9 (80.0-100.0) fL MCH 27.6 (25.0-35.0) pg MCHC 32.5 (31.0-37.0) g/dL RDW 16.0 H (11.5-15.5) % Plt Count 368 (150-450) k/uL Neutrophils % 68 % Lymphocytes % 20 % Monocytes % 7 % Eosinophils % 2 % Basophils % 1 % Neutrophils # 6.6 (1.3-7.7) k/uL Lymphocytes # 1.9 (1.0-4.8) k/uL Monocytes # 0.7 (0-1.0) k/uL Eosinophils # 0.2 (0-0.7) k/uL Basophils # 0.1 (0-0.2) k/uL PT 23.1 H (9.0-12.0) sec INR 2.4 H (<1.2) APTT 32.2 H (22.0-30.0) sec Sodium 130 L (137-145) mmol/L Potassium 3.1 L (3.5-5.1) mmol/L Chloride 92 L (98-107) mmol/L Carbon Dioxide 28 (22-30) mmol/L Anion Gap 10 mmol/L BUN 35 H (7-17) mg/dL Creatinine 0.85 (0.52-1.04) mg/dL Est GFR (CKD-EPI)AfAm 84 (>60 ml/min/1.73 sqM) Est GFR (CKD-EPI)NonAf 72 (>60 ml/min/1.73 sqM) Glucose 94 (74-99) mg/dL Plasma Lactic Acid Steve (0.7-2.0) mmol/L Calcium 9.1 (8.4-10.2) mg/dL Total Bilirubin 0.6 (0.2-1.3) mg/dL AST 30 (14-36) U/L ALT 20 (4-34) U/L Alkaline Phosphatase 137 H (38-126) U/L Troponin I (0.000-0.034) ng/mL Total Protein 6.9 (6.3-8.2) g/dL Albumin 4.2 (3.5-5.0) g/dL Blood Type Blood Type Recheck Bld Type Recheck Status Antibody Screen Spec Expiration Date 12/05/19 12/05/19 12/05/19 Range/Units 22:52 22:52 22:52 WBC (3.8-10.6) k/uL RBC (3.80-5.40) m/uL Hgb (11.4-16.0) gm/dL Hct (34.0-46.0) % MCV (80.0-100.0) fL MCH (25.0-35.0) pg MCHC (31.0-37.0) g/dL RDW (11.5-15.5) % Plt Count (150-450) k/uL Neutrophils % % Lymphocytes % % Monocytes % % Eosinophils % % Basophils % % Neutrophils # (1.3-7.7) k/uL Lymphocytes # (1.0-4.8) k/uL Monocytes # (0-1.0) k/uL Eosinophils # (0-0.7) k/uL Basophils # (0-0.2) k/uL PT (9.0-12.0) sec INR (<1.2) APTT (22.0-30.0) sec Sodium (137-145) mmol/L Potassium (3.5-5.1) mmol/L Chloride (98-107) mmol/L Carbon Dioxide (22-30) mmol/L Anion Gap mmol/L BUN (7-17) mg/dL Creatinine (0.52-1.04) mg/dL Est GFR (CKD-EPI)AfAm (>60 ml/min/1.73 sqM) Est GFR (CKD-EPI)NonAf (>60 ml/min/1.73 sqM) Glucose (74-99) mg/dL Plasma Lactic Acid Steve 0.8 (0.7-2.0) mmol/L Calcium (8.4-10.2) mg/dL Total Bilirubin (0.2-1.3) mg/dL AST (14-36) U/L ALT (4-34) U/L Alkaline Phosphatase (38-126) U/L Troponin I <0.012 (0.000-0.034) ng/mL Total Protein (6.3-8.2) g/dL Albumin (3.5-5.0) g/dL Blood Type AB Negative Blood Type Recheck AB Neg Bld Type Recheck Status No Antibody Screen NEGATIVE Spec Expiration Date 12/08/20192351 Disposition Clinical Impression: Hypokalemia, Lower gastrointestinal hemorrhage Disposition: HOME SELF-CARE Condition: Fair Instructions (If sedation given, give patient instructions): Gastrointestinal Bleeding (ED), Hypokalemia (ED) Is patient prescribed a controlled substance at d/c from ED?: No Referrals: Edd Lee MD [Primary Care Provider] - 1-2 days
[2019-12-05 23:35] LABS: Basophils # (A) 0.1 k/uL (0-0.2); Basophils % (A) 1 %; Eosinophils # (A) 0.2 k/uL (0-0.7); Eosinophils % (A) 2 %; HCT 33.8 % (34.0-46.0); Lymphocytes # (A) 1.9 k/uL (1.0-4.8); Lymphocytes % (A) 20 %; MCH 27.6 pg (25.0-35.0); MCHC 32.5 g/dL (31.0-37.0); MCV 84.9 fL (80.0-100.0); Mean Platelet Volume 7.1; Monocytes # (A) 0.7 k/uL (0-1.0); Monocytes % (A) 7 %; Neutrophils # (A) 6.6 k/uL (1.3-7.7); Neutrophils % (A) 68 %; Platelet Count 368 k/uL (150-450); RBC 3.98 m/uL (3.80-5.40); WBC 9.8 k/uL (3.8-10.6)
[2019-12-05 23:43] LABS: INR 2.4 (<1.2); Partial Thromboplastin Time 32.2 sec (22.0-30.0); Prothrombin Time 23.1 sec (9.0-12.0)
[2019-12-05 23:44] LABS: Albumin 4.2 g/dL (3.5-5.0); Calcium 9.1 mg/dL (8.4-10.2); Potassium 3.1 mmol/L (3.5-5.1); Total Bilirubin 0.6 mg/dL (0.2-1.3); Total Protein 6.9 g/dL (6.3-8.2)
[2019-12-05] MEDS ORDERED: POTASSIUM CHLORIDE ER 20 MEQ TAB.ER PO STA (23:53)
[2019-12-06 01:53] VITALS: BP 110/81; PULSE 63; TEMP 97.8
== END 2019-12-06 01:53 | disposition home or self-care (01) ==
LOC: EC 22:15
DX: K92.2 Gastrointestinal hemorrhage, unspecified (principal); E87.6 Hypokalemia; S00.83XA Contusion of other part of head, initial encounter; S30.1XXA Contusion of abdominal wall, initial encounter; L91.8 Other hypertrophic disorders of the skin; I25.119 Atherosclerotic heart disease of native coronary artery with unspecified angina pectoris; I11.0 Hypertensive heart disease with heart failure; I50.9 Heart failure, unspecified; E78.5 Hyperlipidemia, unspecified; I25.2 Old myocardial infarction; G47.30 Sleep apnea, unspecified; E03.9 Hypothyroidism, unspecified; Z79.890 Hormone replacement therapy; Z79.899 Other long term (current) drug therapy; Z79.01 Long term (current) use of anticoagulants; Z86.711 Personal history of pulmonary embolism; Z98.84 Bariatric surgery status; Z86.718 Personal history of other venous thrombosis and embolism; Z99.89 Dependence on other enabling machines and devices; X58.XXXA Exposure to other specified factors, initial encounter
CPT/HCPCS: 36415; 80053; 83605; 84484; 85025; 85610; 85730; 86850; 86900; 86901; 99284

== ENCOUNTER 2019-12-17 12:53 | Inpatient (IN) | payer MEDICARE ==
--- NOTE | 2019-12-17 13:22 | ED ---
Dizziness HPI - General Chief Complaint: Dizziness Stated Complaint: dizziness, lethargic Time Seen by Provider: 12/17/19 13:19 Source: patient, RN notes reviewed, old records reviewed Mode of arrival: ambulatory Limitations: no limitations - History of Present Illness Initial Comments: This is a 64-year-old female DF for evaluation today of dizziness. Patient states she does not feel like herself states that she's been disoriented with some fatigue and headache and difficulty finding her words. Patient complicated long medical history. MD Complaint: dizziness, lightheadedness, other (Confusion) -: days(s) Timing: gradual onset History of Same: No History of Trauma: No Severity: moderate Improves With: nothing Worsens With: nothing Associated Symptoms: confusion, weakness - Related Data Home Medications Medication Instructions Recorded Confirmed Levothyroxine Sodium [Synthroid] 88 mcg PO DAILY 08/09/13 11/27/19 Cyclobenzaprine [Flexeril] 5 mg PO TID PRN 11/04/15 11/27/19 Vortioxetine Hydrobromide 10 mg PO DAILY 11/04/15 11/27/19 [Trintellix] rOPINIRole HCL [Requip] 3 mg PO DAILY@2100 11/09/17 11/27/19 Diclofenac Sodium Gel [Voltaren 2 gm TOPICAL QID PRN 10/18/19 11/27/19 Gel] Ergocalciferol [Vitamin D2 50,000 unit PO RALPH 10/18/19 11/27/19 (DRISDOL)] Esomeprazole Magnesium 40 mg PO DAILY 10/18/19 11/27/19 Hydrocodone/Acetaminophen [[place] 1 tab PO TID 10/18/19 11/27/19 7.5-325] Pregabalin [Lyrica] 200 mg PO TID 10/18/19 11/27/19 Topiramate 50 mg PO BID 10/18/19 11/27/19 rOPINIRole HCL [Requip] 4 mg PO HS@2300 10/18/19 11/27/19 Metoprolol Tartrate 12.5 mg PO DAILY@1700 11/27/19 11/27/19 Potassium Chloride [Klor-Con 20] 20 meq PO BID 11/27/19 11/27/19 Previous Rx's Medication Instructions Recorded Aspirin 81 mg PO DAILY #30 chew 10/20/19 Atorvastatin [Lipitor] 40 mg PO HS #30 tab 10/20/19 Clopidogrel [Plavix] 75 mg PO DAILY #30 tab 10/20/19 Nitroglycerin Sl Tabs [Nitrostat] 0.4 mg SUBLINGUAL Q5M PRN #30 tab 10/20/19 Ipratropium-Albuterol Nebulize 3 ml INHALATION QID #120 dose 10/21/19 [Duoneb 0.5 mg-3 mg/3 ml Soln] Spironolactone [Aldactone] 25 mg PO DAILY #30 tab 10/21/19 ARIPiprazole [Abilify] 10 mg PO DAILY #30 tab 12/02/19 Folic Acid 1 mg PO DAILY@1200 #30 tab 12/02/19 Furosemide [Lasix] 40 mg PO DAILY #60 tab 12/02/19 Losartan [Cozaar] 12.5 mg PO HS #30 tab 12/02/19 Multivitamins, Thera [Multivitamin 1 each PO DAILY@1200 #30 tab 12/02/19 (formulary)] Sennosides-Docusate Sodium 2 each PO HS #60 tab 12/02/19 [Senokot-S] Thiamine [Vitamin B-1] 100 mg PO DAILY@1200 #30 tab 12/02/19 Warfarin [Coumadin] 10 mg PO DAILY@1800 #10 tab 12/02/19 Allergies Allergy/AdvReac Type Severity Reaction Status Date / Time cefprozil [From Cefzil] Allergy Unknown Verified 12/17/19 13:07 Sulfa (Sulfonamide Allergy Rash/Hives Verified 12/17/19 13:07 Antibiotics) valdecoxib [From Bextra] Allergy Unknown Verified 12/17/19 13:07 codeine AdvReac DIFFICULTY Verified 12/17/19 13:07 URINATING metaxalone [From Skelaxin] AdvReac Nausea & Verified 12/17/19 13:07 Vomiting Review of Systems ROS Statement: Those systems with pertinent positive or pertinent negative responses have been documented in the HPI. ROS Other: All systems not noted in ROS Statement are negative. 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 Last Myocardial Infarction Date:: 2002 History of Any Multi-Drug Resistant Organisms: None Reported Past Surgical History: Bariatric Surgery, Hernia Repair, Hysterectomy, Orthopedic Surgery, Tubal Ligation Additional Past Surgical History / Comment(s): 10/19/19 PCI with stent, EGDs, colonoscopy/benign polyps, gastric bypass with revision, ventral and hiatal hernia repair, bladder suspension, R rotator curr repair/revision, L knee arthroscopy, rectocele, perinealplasty, Past Anesthesia/Blood Transfusion Reactions: Motion Sickness Past Psychological History: Anxiety, Depression Smoking Status: Never smoker - Past Family History Mother Family Medical History: Coronary Artery Disease (CAD), Eye Disorder Additional Family Medical History / Comment(s): Mother is 91 yrs old Father Family Medical History: Myocardial Infarction ([place]) Additional Family Medical History / Comment(s): Father of a massive [place] at the age of 53 yrs. Sister(s) Family Medical History: Cancer General Exam Limitations: no limitations General appearance: alert, in no apparent distress Head exam: Present: atraumatic, normocephalic, normal inspection Eye exam: Present: normal appearance, PERRL, EOMI. Absent: scleral icterus, conjunctival injection, periorbital swelling ENT exam: Present: normal exam, mucous membranes moist Neck exam: Present: normal inspection. Absent: tenderness, meningismus, lymphadenopathy Respiratory exam: Present: normal lung sounds bilaterally. Absent: respiratory distress, wheezes, rales, rhonchi, stridor Cardiovascular Exam: Present: regular rate, normal rhythm, normal heart sounds. Absent: systolic murmur, diastolic murmur, rubs, gallop, clicks GI/Abdominal exam: Present: soft, normal bowel sounds. Absent: distended, tenderness, guarding, rebound, rigid Extremities exam: Present: normal inspection, full ROM, normal capillary refill. Absent: tenderness, pedal edema, joint swelling, calf tenderness Back exam: Present: normal inspection Neurological exam: Present: alert, oriented X3, CN II-XII intact Psychiatric exam: Present: normal affect, normal mood Skin exam: Present: warm, dry, intact, normal color. Absent: rash Course Vital Signs 12/17/19 12/17/19 12/17/19 13:03 14:00 14:58 Temperature 97.8 F Pulse Rate 54 L 51 L 57 L Respiratory 18 18 18 Rate Blood Pressure 126/80 101/79 111/61 O2 Sat by Pulse 99 99 100 Oximetry - Reevaluation(s) Reevaluation #1: 12/17/19 13:22 Medical records reviewed Reevaluation #2: 12/17/19 15:20 No significant worsening of symptoms here in the ER no significant findings of stroke here in the ER 12/17/19 15:20 Symptoms do appear to be TIA - Consultations Consultation #1: Spoke with Dr Jesus edwards to admit this patient EKG Findings - EKG Comments: EKG Findings:: EKG shows sinus bradycardia 55 LA 236 QRS 110 QTc 443 Medical Decision Making - Medical Decision Making 64 female presents today for evaluation of altered mental status recurrent TIAs some ataxia and not feeling entirely well. Patient be admitted for further neurological evaluation - Lab Data Result diagrams: 12/17/19 13:45 12/17/19 13:45 Lab Results 12/17/19 12/17/19 12/17/19 Range/Units 13:45 13:45 13:45 WBC 7.1 (3.8-10.6) k/uL RBC 4.43 (3.80-5.40) m/uL Hgb 12.3 (11.4-16.0) gm/dL Hct 37.9 (34.0-46.0) % MCV 85.6 (80.0-100.0) fL MCH 27.7 (25.0-35.0) pg MCHC 32.4 (31.0-37.0) g/dL RDW 16.2 H (11.5-15.5) % Plt Count 452 H (150-450) k/uL Neutrophils % 67 % Lymphocytes % 21 % Monocytes % 7 % Eosinophils % 2 % Basophils % 1 % Neutrophils # 4.8 (1.3-7.7) k/uL Lymphocytes # 1.5 (1.0-4.8) k/uL Monocytes # 0.5 (0-1.0) k/uL Eosinophils # 0.1 (0-0.7) k/uL Basophils # 0.0 (0-0.2) k/uL Anisocytosis Slight PT 12.6 H (9.0-12.0) sec INR 1.2 H (<1.2) APTT 27.2 (22.0-30.0) sec Sodium (137-145) mmol/L Potassium (3.5-5.1) mmol/L Chloride (98-107) mmol/L Carbon Dioxide (22-30) mmol/L Anion Gap mmol/L BUN (7-17) mg/dL Creatinine (0.52-1.04) mg/dL Est GFR (CKD-EPI)AfAm (>60 ml/min/1.73 sqM) Est GFR (CKD-EPI)NonAf (>60 ml/min/1.73 sqM) Glucose (74-99) mg/dL Plasma Lactic Acid Steve (0.7-2.0) mmol/L Calcium (8.4-10.2) mg/dL Phosphorus (2.5-4.5) mg/dL Magnesium (1.6-2.3) mg/dL Total Bilirubin (0.2-1.3) mg/dL AST (14-36) U/L ALT (4-34) U/L Alkaline Phosphatase (38-126) U/L Creatine Kinase (30-135) U/L Troponin I (0.000-0.034) ng/mL NT-Pro-B Natriuret Pep pg/mL Total Protein (6.3-8.2) g/dL Albumin (3.5-5.0) g/dL TSH (0.465-4.680) mIU/L Urine Color Colorless Urine Appearance Clear (Clear) Urine pH 5.0 (5.0-8.0) Ur Specific [place] 1.005 (1.001-1.035) Urine Protein Negative (Negative) Urine Glucose (UA) Negative (Negative) Urine Ketones Negative (Negative) Urine Blood Negative (Negative) Urine Nitrite Negative (Negative) Urine Bilirubin Negative (Negative) Urine Urobilinogen <2.0 (<2.0) mg/dL Ur Leukocyte Esterase Negative (Negative) 12/17/19 12/17/19 12/17/19 Range/Units 13:45 13:45 13:45 WBC (3.8-10.6) k/uL RBC (3.80-5.40) m/uL Hgb (11.4-16.0) gm/dL Hct (34.0-46.0) % MCV (80.0-100.0) fL MCH (25.0-35.0) pg MCHC (31.0-37.0) g/dL RDW (11.5-15.5) % Plt Count (150-450) k/uL Neutrophils % % Lymphocytes % % Monocytes % % Eosinophils % % Basophils % % Neutrophils # (1.3-7.7) k/uL Lymphocytes # (1.0-4.8) k/uL Monocytes # (0-1.0) k/uL Eosinophils # (0-0.7) k/uL Basophils # (0-0.2) k/uL Anisocytosis PT (9.0-12.0) sec INR (<1.2) APTT (22.0-30.0) sec Sodium 128 L (137-145) mmol/L Potassium 3.1 L (3.5-5.1) mmol/L Chloride 88 L (98-107) mmol/L Carbon Dioxide 29 (22-30) mmol/L Anion Gap 11 mmol/L BUN 50 H (7-17) mg/dL Creatinine 0.99 (0.52-1.04) mg/dL Est GFR (CKD-EPI)AfAm 69 (>60 ml/min/1.73 sqM) Est GFR (CKD-EPI)NonAf 60 (>60 ml/min/1.73 sqM) Glucose 90 (74-99) mg/dL Plasma Lactic Acid Steve 2.1 H* (0.7-2.0) mmol/L Calcium 8.9 (8.4-10.2) mg/dL Phosphorus 4.4 (2.5-4.5) mg/dL Magnesium 2.3 (1.6-2.3) mg/dL Total Bilirubin 0.6 (0.2-1.3) mg/dL AST 32 (14-36) U/L ALT 18 (4-34) U/L Alkaline Phosphatase 121 (38-126) U/L Creatine Kinase 154 H (30-135) U/L Troponin I <0.012 (0.000-0.034) ng/mL NT-Pro-B Natriuret Pep pg/mL Total Protein 6.7 (6.3-8.2) g/dL Albumin 4.0 (3.5-5.0) g/dL TSH 1.520 (0.465-4.680) mIU/L Urine Color Urine Appearance (Clear) Urine pH (5.0-8.0) Ur Specific [place] (1.001-1.035) Urine Protein (Negative) Urine Glucose (UA) (Negative) Urine Ketones (Negative) Urine Blood (Negative) Urine Nitrite (Negative) Urine Bilirubin (Negative) Urine Urobilinogen (<2.0) mg/dL Ur Leukocyte Esterase (Negative) 12/17/19 Range/Units 13:45 WBC (3.8-10.6) k/uL RBC (3.80-5.40) m/uL Hgb (11.4-16.0) gm/dL Hct (34.0-46.0) % MCV (80.0-100.0) fL MCH (25.0-35.0) pg MCHC (31.0-37.0) g/dL RDW (11.5-15.5) % Plt Count (150-450) k/uL Neutrophils % % Lymphocytes % % Monocytes % % Eosinophils % % Basophils % % Neutrophils # (1.3-7.7) k/uL Lymphocytes # (1.0-4.8) k/uL Monocytes # (0-1.0) k/uL Eosinophils # (0-0.7) k/uL Basophils # (0-0.2) k/uL Anisocytosis PT (9.0-12.0) sec INR (<1.2) APTT (22.0-30.0) sec Sodium (137-145) mmol/L Potassium (3.5-5.1) mmol/L Chloride (98-107) mmol/L Carbon Dioxide (22-30) mmol/L Anion Gap mmol/L BUN (7-17) mg/dL Creatinine (0.52-1.04) mg/dL Est GFR (CKD-EPI)AfAm (>60 ml/min/1.73 sqM) Est GFR (CKD-EPI)NonAf (>60 ml/min/1.73 sqM) Glucose (74-99) mg/dL Plasma Lactic Acid Steve (0.7-2.0) mmol/L Calcium (8.4-10.2) mg/dL Phosphorus (2.5-4.5) mg/dL Magnesium (1.6-2.3) mg/dL Total Bilirubin (0.2-1.3) mg/dL AST (14-36) U/L ALT (4-34) U/L Alkaline Phosphatase (38-126) U/L Creatine Kinase (30-135) U/L Troponin I (0.000-0.034) ng/mL NT-Pro-B Natriuret Pep 384 pg/mL Total Protein (6.3-8.2) g/dL Albumin (3.5-5.0) g/dL TSH (0.465-4.680) mIU/L Urine Color Urine Appearance (Clear) Urine pH (5.0-8.0) Ur Specific [place] (1.001-1.035) Urine Protein (Negative) Urine Glucose (UA) (Negative) Urine Ketones (Negative) Urine Blood (Negative) Urine Nitrite (Negative) Urine Bilirubin (Negative) Urine Urobilinogen (<2.0) mg/dL Ur Leukocyte Esterase (Negative) - Radiology Data Radiology results: report reviewed (CT brain negative for acute disease chest x- rays negative for acute disease), image reviewed Disposition Clinical Impression: Altered mental status, TIA (transient ischemic attack), Syncope, Vertigo Disposition: ADMITTED IP TO THIS HOSP Condition: Fair Is patient prescribed a controlled substance at d/c from ED?: No Referrals: Edd Lee MD [Primary Care Provider] - 1-2 days
[2019-12-17 14:06] LABS: Anisocytosis Slight; Basophils % (A) 1 %; Eosinophils # (A) 0.1 k/uL (0-0.7); Eosinophils % (A) 2 %; HCT 37.9 % (34.0-46.0); HGB 12.3 gm/dL (11.4-16.0); Lymphocytes # (A) 1.5 k/uL (1.0-4.8); Lymphocytes % (A) 21 %; MCH 27.7 pg (25.0-35.0); MCHC 32.4 g/dL (31.0-37.0); MCV 85.6 fL (80.0-100.0); Mean Platelet Volume 6.8; Monocytes # (A) 0.5 k/uL (0-1.0); Monocytes % (A) 7 %; Neutrophils # (A) 4.8 k/uL (1.3-7.7); Neutrophils % (A) 67 %; Platelet Count 452 k/uL (150-450); RBC 4.43 m/uL (3.80-5.40); RDW 16.2 % (11.5-15.5); WBC 7.1 k/uL (3.8-10.6)
[2019-12-17 14:08] LABS: INR 1.2 (<1.2); Partial Thromboplastin Time 27.2 sec (22.0-30.0); Prothrombin Time 12.6 sec (9.0-12.0)
[2019-12-17 14:14] LABS: Calcium 8.9 mg/dL (8.4-10.2); Magnesium 2.3 mg/dL (1.6-2.3); Phosphorus 4.4 mg/dL (2.5-4.5); Potassium 3.1 mmol/L (3.5-5.1); Total Bilirubin 0.6 mg/dL (0.2-1.3); Total Protein 6.7 g/dL (6.3-8.2)
[2019-12-17 14:21] LABS: Appearance,Urine Clear (Clear); Bilirubin,Urine Negative (Negative); Blood,Urine Negative (Negative); Color,Urine Colorless; Glucose,Urine (UA) Negative (Negative); Ketones,Urine Negative (Negative); Leukocyte Esterase,Urine Negative (Negative); Nitrite,Urine Negative (Negative); Protein,Urine Negative (Negative); Specific Gravity,Urine 1.005 (1.001-1.035); Urobilinogen,Urine <2.0 mg/dL (<2.0)
--- NOTE | 2019-12-17 14:53 | CT ---
EXAMINATION TYPE: CT brain wo con DATE OF EXAM: 12/17/2019 COMPARISON: 11/27/2019 and 07/12/2015. HISTORY: 64-year-old female follow-up exam, rule out subdural hematoma. TECHNIQUE: Examination was done in axial plane without intravenous contrast. Coronal and sagittal r econstructions performed. CT DLP: 1094.4 mGycm Automated exposure control for dose reduction was used. FINDINGS: There is no evidence of acute intracranial hemorrhage, acute ischemic change, mass effect, or extra- axial fluid collection. There is no effacement of cerebral sulci or basal subarachnoid cisterns. Th ere is no hydrocephalus. There is no midline shift. Xie-white matter distinction is preserved. Redemonstrated mild bifrontal atrophy. Either a partially empty sella or a 8 x 3 mm cystic lesion of the pituitary gland (refer to sagittal image 29 and coronal image 28). Rightward nasal septal deviation. Fluid trapped within the inferior right mastoid air cells. Orbits a nd globes are intact. IMPRESSION: 1. Bifrontal atrophy. No acute intracranial abnormality seen. 2. Either a partially empty sella or an 8 x 3 mm cystic lesion of the pituitary gland. Nonemergent fo llow-up contrast enhanced MRI of the brain and pituitary gland can further evaluate. The appearance, however, is unchanged back to 07/12/2015 compatible with a benign etiology. 3. Some fluid within the inferior right mastoid air cells. Correlate for any mastoid pain to exclude mastoiditis.
--- NOTE | 2019-12-17 14:58 | XR ---
EXAMINATION TYPE: XR chest 2V DATE OF EXAM: 12/17/2019 COMPARISON: 11/27/2019 HISTORY: 64-year-old female with weakness TECHNIQUE: AP and lateral views FINDINGS: Low lung volumes with crowded vascular markings. Heart limits of normal in size. Aorta and pulmonary vasculature within normal limits. No consolidation or pleural effusion. Moderate degenerative disc di sease mid to lower thoracic spine. Accentuated mid thoracic kyphosis. Spinal stimulator array within the mid thoracic spinal canal. Loss of the subacromial space on both sides, suspected chronic bilater al full-thickness rotator cuff tears. IMPRESSION: Hypoventilatory changes. No definite acute process.
[2019-12-17] MEDS ORDERED: DIAZEPAM 5 MG/ML 2 ML INJ IVP STA (15:17)
[2019-12-17] MEDS ORDERED: MORPHINE SULFATE 4 MG/ML SYRINGE IVP PRN (15:17)
[2019-12-17] MEDS ORDERED: DIAZEPAM 5 MG/ML 2 ML INJ IVP PRN (15:17)
[2019-12-17] MEDS ORDERED: MORPHINE SULFATE 4 MG/ML SYRINGE IVP STA (15:17)
[2019-12-17] MEDS ORDERED: ASPIRIN 325 MG TAB PO STA (17:12)
[2019-12-17] MEDS: ATORVASTATIN 40 MG TAB PO SCH (20:46)
[2019-12-17] MEDS: POTASSIUM CHLORIDE ER 20 MEQ TAB.ER PO SCH (20:47)
[2019-12-17] MEDS: PREGABALIN 100 MG CAP PO SCH (20:47)
[2019-12-17] MEDS: HYDROcodone/APAP 7.5-325MG 1 EACH TAB PO SCH (20:48)
[2019-12-17] MEDS: SENNOSIDES-DOCUSATE SODIUM 1 EACH TAB PO SCH (20:48)
[2019-12-17] MEDS: WARFARIN 10 MG TAB PO SCH (20:50)
[2019-12-17] MEDS: TOPIRAMATE 25 MG TAB PO SCH (20:50)
[2019-12-18] MEDS: CYCLOBENZAPRINE 5 MG TAB PO PRN ×2 (00:43→14:06)
[2019-12-18] MEDS: LEVOTHYROXINE 88 MCG TAB PO SCH (06:10)
[2019-12-18 08:06] LABS: INR 1.2 (<1.2)
[2019-12-18 08:09] LABS: Cholesterol 165 mg/dL (<200); HDL Cholesterol 69 mg/dL (40-60); LDL Cholesterol,Calculated 73 mg/dL (0-99); Triglycerides 115 mg/dL (<150)
[2019-12-18 08:33] VITALS: RESP 18
[2019-12-18] MEDS ORDERED: FUROSEMIDE 40 MG TAB PO SCH (09:00)
[2019-12-18] MEDS: ASPIRIN 81 MG PO SCH (09:52)
[2019-12-18] MEDS: POTASSIUM CHLORIDE ER 20 MEQ TAB.ER PO SCH ×3 (09:52→21:39)
[2019-12-18] MEDS: ARIPiprazole 10 MG TAB PO SCH (09:52)
[2019-12-18] MEDS: SPIRONOLACTONE 25 MG TAB PO SCH (09:52)
[2019-12-18] MEDS: PREGABALIN 100 MG CAP PO SCH (09:53)
[2019-12-18] MEDS: VORTIOXETINE HYDROBROMIDE 10 MG TABLET PO SCH (09:53)
[2019-12-18] MEDS: PANTOPRAZOLE 40 MG TABLET PO SCH (09:53)
[2019-12-18] MEDS: METOPROLOL SUCCINATE (ER) 25 MG TAB.ER.24H PO SCH (09:54)
[2019-12-18] MEDS: CLOPIDOGREL 75 MG TAB PO SCH (09:54)
[2019-12-18] MEDS: HYDROcodone/APAP 7.5-325MG 1 EACH TAB PO SCH ×3 (09:54→23:08)
[2019-12-18] MEDS: TOPIRAMATE 25 MG TAB PO SCH ×2 (09:55→21:41)
[2019-12-18] MEDS ORDERED: ASPIRIN 325 MG TAB PO SCH (12:00)
--- NOTE | 2019-12-18 14:39 | P.CNNES ---
History of Present Illness Consult date: 12/18/19 Requesting physician: Christos Anderson Reason for Consult: TIA History of Present Illness: Patient is a 64-year-old female, who arrived to the hospital yesterday at around 1 PM for evaluation of dizziness, disorienting feeling fatigue headache and difficulty finding words. Patient has history of hypercoagulable state, had history of 3 PEs in the past, the last one was in November 2019. She is on Coumadin 10 mg daily. Patient also states that she has history of strokes, in 2006 had a TIA, and in 2009 had a stroke with right-sided weakness. She states that she has some residual right-sided deficits and she uses cane since her stroke in 2009. Patient came to the hospital because she couldn't get words out, like simple words "peanut butter". When she would stand up, she would feel wobbly, felt like "broad walking", has to hang onto the objects. Whenever she stood up, had no balance. She felt she was stumbling over words, even the words that she uses every day. She also has been feeling very drowsy, would nod off during the day. Due to these reasons she came to the hospital. Patient's Vital signs on arrival was blood pressure 126/80, pulse rate 54, temperature 97.8. Computed tomography scan of head showed bifrontal atrophy. No acute process. Either a partially empty sella or an 8 x 3 mm cystic lesion of the pituitary gland. Nonemergent follow-up contrast enhanced MRI of the brain and pituitary gland can further evaluate. The appearance, however is unchanged back to 07/12/2015 compatible with benign etiology. Some fluid within the right inferior mastoid air cells. Correlate for any mastoid pain to exclude mastoiditis. EKG shows sinus bradycardia with first-degree AV block. Chest x- ray with hypoventilatory changes. No definite acute process. Patient's 2-D echo from 10/19/2019 showed EF 35-40%. Left ventricle wall thickness is normal. Mid anterior septal, apical anterior, apical lateral, apical inferior and apical septal left ventricular wall motions are hypokinetic. Left atrium is mildly dilated. Patient's CBC is normal. PTT is 27.2, INR 1.2 which is very subtherapeutic. Sodium 128 potassium 3.1, BUN 50, creatinine 0.99. Hepatic panel normal ammonia normal. Total cholesterol 165, LDL 73, HDL 69 and at discharge 115. TSH is normal UA negative. Patient's previous blood tests from 01/07/2019 showed B12 > 4000, folate > 20, vitamin B6 is low for her. TSH normal. Hemoglobin A1c Patient has history of stroke as well as hypercoagulable state. She had history of 3 strokes in the past in 2006 and 2009 with some residual right-sided hemiparesis from her previous stroke. She also has been treated for 3 pulmonary embolisms. Currently on Coumadin. Patient had an MRI of brain performed for headache and vertigo on 07/13/2015 which was negative for any acute stroke. Nonspecific white matter changes were seen. Patient had a carotid Doppler on 01/07/2019, which revealed no sonographically evident hemodynamically significant stenosis within either visualize carotid arterial system. Patient is currently on aspirin 81 mg, Plavix and 5 mg and Coumadin. Patient states that she had a vasovagal syncope on 11/27/2019, when she had stopped taking all her medications for 4 days. She went to bathroom while she was having diarrhea. She passed out at 2:30 AM and her significant other found her on the floor at 8:30 AM. She stayed in the hospital for 6 days. She was diagnosed with early stage of renal failure at that time. Patient has history of hypertension diagnosed in October 2019. Denies diabetes. She never smoked drinks alcohol very rarely. Patient has history of chronic low back pain for which she had undergone spinal cord stimulator placed 08/23/2018. She also has CHF, tinnitus all the time. She follows up with an ENT specialist. She has history of rotator cuff surgery of the right shoulder and is going to have left shoulder replacement soon. Patient currently takes Lyrica 200 mg 3 times a day for fibromyalgia. She used to take gabapentin but produced significant cognitive problems. Patient is also on Requip 2 mg in the afternoon and 5 mg at bedtime. Also takes [place] 7.5 mg twice a day. She is also on Flexeril 5 mg 3 times a day when necessary, Trintillix 10 mg, Topamax 50 mg twice a day Abilify 10 mg. Review of Systems As mentioned in detail in HPI. All other review of systems reviewed, and an noncontributory/unremarkable. Past Medical History Past Medical History: Asthma, Coronary Artery Disease (CAD), Chest Pain / Angina, Heart Failure, COPD, CVA/TIA, Deep Vein Thrombosis (DVT), Fibromyalgia, GERD/Reflux, GI Bleed, Hearing Disorder / Deafness, Hyperlipidemia, Hypertension, Memory Impairment, Myocardial Infarction (MT), Osteoarthritis ( OA), Pneumonia, Pulmonary Embolus (PE), Respiratory Disorder, Seizure Disorder, Skin Disorder, Sleep Apnea/CPAP/BIPAP, Thyroid Disorder Additional Past Medical History / Comment(s): CVA with R sided weakness arm and leg and speech affected, tia, falls, pulmonary HTN, pleurisy, hypoxic respiratory failure/home oxygen 3L/NC ATC, BLANCO without device, 10/2019 takosubto syndrome, bilateral PEs, DVT R lung, last seizure 2016, gastric ulcer, hiatal hernia, upper/lower GI bleeds, IBS, benign polyps, anemia-past iron infusions, hypoglycemia, chronic low back pain, osteoporosis, myofascial pain syndrome, occipital neuralgia, migraines, RLS, hypothyroid, skin yeast infections, bi lateral tinnitis. Last Myocardial Infarction Date:: 2002 History of Any Multi-Drug Resistant Organisms: None Reported Past Surgical History: Bariatric Surgery, Hernia Repair, Hysterectomy, Orthopedic Surgery, Tubal Ligation Additional Past Surgical History / Comment(s): 10/19/19 PCI with stent, EGDs, colonoscopy/benign polyps, gastric bypass with revision, ventral and hiatal hernia repair, bladder suspension, R rotator curr repair/revision, L knee arthroscopy, rectocele, perinealplasty, Past Anesthesia/Blood Transfusion Reactions: Motion Sickness Past Psychological History: Anxiety, Depression Additional Psychological History / Comment(s): Pt states she is living with her significant other but she has requested that he leave. She has a dog. She has home oxygen and a nebulizer. She drives. She has depression which has increased lately, she states has been treated for depression but she has not taken her medication for depression in 2 days. She used to see someone for her mental health but they moved out of state. She states she plans to work with [facility] to get established with someone else. When asked about any recent suicidal thoughts/plans she answered yes but then changed her answer to no, stating she could never do that-she has a grandson that she wants to see grow up. She asks for some home care assistance. Smoking Status: Never smoker Past Alcohol Use History: Rare Past Drug Use History: None Reported - Past Family History Mother Family Medical History: Coronary Artery Disease (CAD), Eye Disorder Additional Family Medical History / Comment(s): Mother is 91 yrs old Father Family Medical History: Myocardial Infarction (MT) Additional Family Medical History / Comment(s): Father of a massive MT at the age of 53 yrs. Sister(s) Family Medical History: Cancer Medications and Allergies Home Medications Medication Instructions Recorded Confirmed Type Levothyroxine Sodium [Synthroid] 88 mcg PO DAILY 08/09/13 12/17/19 History Cyclobenzaprine [Flexeril] 5 mg PO TID PRN 11/04/15 12/17/19 History Vortioxetine Hydrobromide 10 mg PO DAILY 11/04/15 12/17/19 History [Trintellix] rOPINIRole HCL [Requip] 3 mg PO DAILY@2100 11/09/17 12/17/19 History Esomeprazole Magnesium 40 mg PO DAILY 10/18/19 12/17/19 History Hydrocodone/Acetaminophen [[place] 1 tab PO TID 10/18/19 12/17/19 History 7.5-325] Pregabalin [Lyrica] 200 mg PO TID 10/18/19 12/17/19 History Topiramate 50 mg PO BID 10/18/19 12/17/19 History Aspirin 81 mg PO DAILY #30 chew 10/20/19 12/17/19 Rx Atorvastatin [Lipitor] 40 mg PO HS #30 tab 10/20/19 12/17/19 Rx Clopidogrel [Plavix] 75 mg PO DAILY #30 tab 10/20/19 12/17/19 Rx Nitroglycerin Sl Tabs [Nitrostat] 0.4 mg SUBLINGUAL Q5M PRN #30 tab 10/20/19 12/17/19 Rx Spironolactone [Aldactone] 25 mg PO DAILY #30 tab 10/21/19 12/17/19 Rx ARIPiprazole [Abilify] 10 mg PO DAILY #30 tab 12/02/19 12/17/19 Rx Folic Acid 1 mg PO DAILY@1200 #30 tab 12/02/19 12/17/19 Rx Furosemide [Lasix] 40 mg PO DAILY #60 tab 12/02/19 12/17/19 Rx Multivitamins, Thera [Multivitamin 1 each PO DAILY@1200 #30 tab 12/02/19 12/17/19 Rx (formulary)] Sennosides-Docusate Sodium 2 each PO HS #60 tab 12/02/19 12/17/19 Rx [Senokot-S] Thiamine [Vitamin B-1] 100 mg PO DAILY@1200 #30 tab 12/02/19 12/17/19 Rx Warfarin [Coumadin] 10 mg PO DAILY@1800 #10 tab 12/02/19 12/17/19 Rx Ipratropium-Albuterol Nebulize 3 ml INHALATION RT-QID PRN 12/17/19 12/17/19 H istory [Duoneb 0.5 mg-3 mg/3 ml Soln] Metoprolol Succinate (ER) [Toprol 25 mg PO DAILY 12/17/19 12/17/19 History XL] Potassium Chloride ER [K-Dur ] 20 meq PO TID 12/17/19 12/17/19 History Allergies Allergy/AdvReac Type Severity Reaction Status Date / Time cefprozil [From Cefzil] Allergy Unknown Verified 12/17/19 18:05 Sulfa (Sulfonamide Allergy Rash/Hives Verified 12/17/19 18:05 Antibiotics) valdecoxib [From Bextra] Allergy Unknown Verified 12/17/19 18:05 codeine AdvReac DIFFICULTY Verified 12/17/19 18:05 URINATING metaxalone [From Skelaxin] AdvReac Nausea & Verified 12/17/19 18:05 Vomiting Physical Examination - Vital Signs Vital Signs: Vital Signs Temp Pulse Pulse Resp BP BP Pulse Ox 12/18/19 08:29 97.7 F 67 18 105/75 97 12/18/19 03:00 97.7 F 59 L 16 102/58 99 12/17/19 21:00 97.7 F 66 18 126/76 99 12/17/19 18:50 54 L 18 12/17/19 18:22 97.5 F L 54 L 18 138/69 93 L 12/17/19 17:58 97.8 F 56 L 18 143/86 100 12/17/19 17:38 56 L 18 143/86 100 12/17/19 16:40 67 18 128/48 100 12/17/19 16:12 71 18 116/76 100 12/17/19 14:58 57 L 18 111/61 100 12/17/19 14:00 51 L 18 101/79 99 12/17/19 13:03 97.8 F 54 L 18 126/80 99 Intake and Output 12/17/19 12/18/19 12/18/19 22:59 06:59 14:59 Intake Total 240 1620 Balance 240 1620 Intake: Oral 240 1620 Other: Voiding Method Toilet Toilet Toilet Incontinent Incontinent Incontinent # Voids 2 2 Weight 118.841 kg On examination patient is an elderly female, in no acute distress. Patient is alert awake oriented to time place and person. Speech and language functions are normal. Attention and concentration fund of knowledge is adequate. On cranial examination pupils are round and reactive to light, visual vogt are intact. Extraocular muscles are intact. Patient has mild end gaze nystagmus. Face is symmetric, tongue protrudes the midline. Palatal elevation and sensation normal hearing and shoulder shrug normal. On muscle strength testing there is no pronator drift and the strength is normal in arms and legs distally and proximally. Reflexes are somewhat diminished and plantars are downgoing. Sensory touch is equal. No ataxia for [id number] or [id number] testing. Tone and bulk of muscles normal. Gait deferred. There is no carotid bruit, S1 and S2 audible. Abdomen soft nontender. No peripheral edema. Patient does have multiple bruises over her legs and also on the left cheek from previous fall in November. Results - Laboratory Findings CBC and BMP: 12/17/19 13:45 12/17/19 13:45 Abnormal Lab Findings: Abnormal Labs 12/17/19 12/17/19 12/17/19 13:45 13:45 13:45 RDW 16.2 H Plt Count 452 H PT 12.6 H INR 1.2 H Sodium 128 L Potassium 3.1 L Chloride 88 L BUN 50 H Plasma Lactic Acid Steve Creatine Kinase 154 H HDL Cholesterol 12/17/19 12/18/19 12/18/19 13:45 07:30 07:30 RDW Plt Count PT INR 1.2 H Sodium Potassium Chloride BUN Plasma Lactic Acid Steve 2.1 H* Creatine Kinase HDL Cholesterol 69 H Assessment and Plan Assessment: * Altered mental status, with drowsiness, speech difficulty, likely related to mild metabolic encephalopathy. This is probably related to medication side effect. Patient is on numerous psychoactive medication, which produce neurological adverse effects. * Hyponatremia, probably also contributing to encephalopathy. * History of hypercoagulable state, currently on Coumadin with subtherapeutic INR. * Hypertension * Chronic back pain, status post spinal cord stimulator placement 08/23/2018. * History of vitamin B6 deficiency. Plan: * Patient's excessive drowsiness, speech difficulties probably due to medication side effect. Doubt TIA/CVA. * We will decrease dose of Lyrica to 150 mg 3 times a day. Currently she is on Lyrica 200 mg 3 times a day. The dose can be slowly decreased further as tolerated. * Requip also can produce excessive drowsiness sleepiness. Patient is also on Topamax, Trintillix, Flexeril, Abilify 10 mg, all of them can also contribute to her word finding problems, dizziness and excessive sleepiness. Need to reassess her medication list and decrease/stop some if possible. * Vitamin B6 50 mg daily for history of B6 deficiency. * Patient is on Coumadin for hypercoagulable state. Her INR is subtherapeutic. Would suggest optimizing INR in the therapeutic range before discharge. Consider bridging if indicated. * Suggest stopping either aspirin or Plavix to prevent bleeding complications, as patient is already on Coumadin as well. * PT OT evaluate gait. * Neurologically, no other workup indicated. Clear for discharge.
[2019-12-18] MEDS ORDERED: Potassium Replacement Protocol 1 EACH MISC MISCELLANE PRN (16:06)
[2019-12-18] MEDS ORDERED: ACETAMINOPHEN TAB 325 MG TAB PO PRN (16:09)
[2019-12-18] MEDS ORDERED: Magnesium Replacement Protocol 1 EACH MISC MISCELLANE PRN (16:11)
[2019-12-18 16:16] LABS: Calcium 8.9 mg/dL (8.4-10.2); Potassium 3.6 mmol/L (3.5-5.1)
[2019-12-18] MEDS: SODIUM CHLORIDE 0.9% 1,000 ML IV SCH (16:45)
[2019-12-18] MEDS: PREGABALIN 75 MG CAP PO SCH ×2 (16:51→21:39)
[2019-12-18 16:55] LABS: Hemoglobin A1C 5.6 % (4.0-6.0)
[2019-12-18] MEDS ORDERED: WARFARIN 2 MG TAB PO ONE (18:00)
[2019-12-18] MEDS: SENNOSIDES-DOCUSATE SODIUM 1 EACH TAB PO SCH (21:39)
[2019-12-18] MEDS: ATORVASTATIN 40 MG TAB PO SCH (21:40)
[2019-12-18] MEDS: WARFARIN 10 MG TAB PO SCH (21:42)
--- NOTE | 2019-12-18 23:55 | P.HPIM ---
History of Present Illness H&P Date: 12/18/19 Chief Complaint: dizziness, word finding difficulty Marlin Veras is a 64 yo F with PMH of CAD with recent stenting, systolic CHF, hx DVT/PE, morbid obesity, major depression who presented to the [facility] with dizziness and word finding difficulty. She is on coumadin 10 mg daily and has had multiple strokes and TIAs. She states that prior to her presentation yesterday she had been feeling very tired and foggy, walking unsteady. She became alarmed when she couldn't get some words out such as peanut butter. She denies any chest pain, palpitations, syncope. She has been fluid restricting due to her CHF as well. Pt reports poor sleep and has been having worsened stress and anxiety due to her relationship with daughters. On arrival her BP was 126/80, labs with lactic 2.1, Na 128, K 3.1 INR 1.2. EKG NSR, CT head and CXR no acute process. Review of Systems All systems: negative Constitutional: Reports weakness, Denies chills, Denies fever Eyes: denies blurred vision, denies pain Ears, nose, mouth and throat: Denies headache, Denies sore throat Cardiovascular: Denies chest pain, Denies shortness of breath Respiratory: Denies cough Gastrointestinal: Denies abdominal pain, Denies diarrhea, Denies nausea, Denies vomiting Genitourinary: Denies dysuria, Denies hematuria Musculoskeletal: Denies myalgias Integumentary: Denies pruritus, Denies rash Neurological: Reports change in speech, Reports confusion, Reports lack of coordination, Reports weakness, Denies numbness Psychiatric: Reports anxiety, Denies depression Endocrine: Denies fatigue, Denies weight change Past Medical History Past Medical History: Asthma, Coronary Artery Disease (CAD), Chest Pain / Angina, Heart Failure, COPD, CVA/TIA, Deep Vein Thrombosis (DVT), Fibromyalgia, GERD/Reflux, GI Bleed, Hearing Disorder / Deafness, Hyperlipidemia, Hypertension, Memory Impairment, Myocardial Infarction ([place]), Osteoarthritis (OA ), Pneumonia, Pulmonary Embolus (PE), Respiratory Disorder, Seizure Disorder, Skin Disorder, Sleep Apnea/CPAP/BIPAP, Thyroid Disorder Additional Past Medical History / Comment(s): CVA with R sided weakness arm and leg and speech affected, tia, falls, pulmonary HTN, pleurisy, hypoxic respiratory failure/home oxygen 3L/NC ATC, BLANCO without device, 10/2019 takosubto syndrome, bilateral PEs, DVT R lung, last seizure 2017, gastric ulcer, hiatal hernia, upper/lower GI bleeds, IBS, benign polyps, anemia-past iron infusions, hypoglycemia, chronic low back pain, osteoporosis, myofascial pain syndrome, occipital neuralgia, migraines, RLS, hypothyroid, skin yeast infections, bila teral tinnitis. Last Myocardial Infarction Date:: 2002 History of Any Multi-Drug Resistant Organisms: None Reported Past Surgical History: Bariatric Surgery, Hernia Repair, Hysterectomy, Orthopedic Surgery, Tubal Ligation Additional Past Surgical History / Comment(s): 10/19/19 PCI with stent, EGDs, c olonoscopy/benign polyps, gastric bypass with revision, ventral and hiatal hernia repair, bladder suspension, R rotator curr repair/revision, L knee arthroscopy, rectocele, perinealplasty, Past Anesthesia/Blood Transfusion Reactions: Motion Sickness Past Psychological History: Anxiety, Depression Additional Psychological History / Comment(s): Pt states she is living with her significant other but she has requested that he leave. She has a dog. She has home oxygen and a nebulizer. She drives. She has depression which has increased lately, she states has been treated for depression but she has not taken her medication for depression in 2 days. She used to see someone for her mental health but they moved out of state. She states she plans to work with [email or web address] to get established with someone else. When asked about any recent suicidal thoughts/plans she answered yes but then changed her answer to no, stating she could never do that-she has a grandson that she wants to see grow up. She asks for some home care assistance. Smoking Status: Never smoker Past Alcohol Use History: Rare Past Drug Use History: None Reported - Past Family History Mother Family Medical History: Coronary Artery Disease (CAD), Eye Disorder Additional Family Medical History / Comment(s): Mother is 91 yrs old Father Family Medical History: Myocardial Infarction ([place]) Additional Family Medical History / Comment(s): Father of a massive [place] at the age of 53 yrs. Sister(s) Family Medical History: Cancer Medications and Allergies Home Medications Medication Instructions Recorded Confirmed Type Levothyroxine Sodium [Synthroid] 88 mcg PO DAILY 08/09/13 12/17/19 History Cyclobenzaprine [Flexeril] 5 mg PO TID PRN 11/04/15 12/17/19 History Vortioxetine Hydrobromide 10 mg PO DAILY 11/04/15 12/17/19 History [Trintellix] rOPINIRole HCL [Requip] 3 mg PO DAILY@2100 11/09/17 12/17/19 History Esomeprazole Magnesium 40 mg PO DAILY 10/18/19 12/17/19 History Hydrocodone/Acetaminophen [Niles 1 tab PO TID 10/18/19 12/17/19 History 7.5-325] Pregabalin [Lyrica] 200 mg PO TID 10/18/19 12/17/19 History Topiramate 50 mg PO BID 10/18/19 12/17/19 History Aspirin 81 mg PO DAILY #30 chew 10/20/19 12/17/19 Rx Atorvastatin [Lipitor] 40 mg PO HS #30 tab 10/20/19 12/17/19 Rx Clopidogrel [Plavix] 75 mg PO DAILY #30 tab 10/20/19 12/17/19 Rx Nitroglycerin Sl Tabs [Nitrostat] 0.4 mg SUBLINGUAL Q5M PRN #30 tab 10/20/19 12/17/19 Rx Spironolactone [Aldactone] 25 mg PO DAILY #30 tab 10/21/19 12/17/19 Rx ARIPiprazole [Abilify] 10 mg PO DAILY #30 tab 12/02/19 12/17/19 Rx Folic Acid 1 mg PO DAILY@1200 #30 tab 12/02/19 12/17/19 Rx Furosemide [Lasix] 40 mg PO DAILY #60 tab 12/02/19 12/17/19 Rx Multivitamins, Thera [Multivitamin 1 each PO DAILY@1200 #30 tab 12/02/19 12/17/19 Rx (formulary)] Sennosides-Docusate Sodium 2 each PO HS #60 tab 12/02/19 12/17/19 Rx [Senokot-S] Thiamine [Vitamin B-1] 100 mg PO DAILY@1200 #30 tab 12/02/19 12/17/19 Rx Warfarin [Coumadin] 10 mg PO DAILY@1800 #10 tab 12/02/19 12/17/19 Rx Ipratropium-Albuterol Nebulize 3 ml INHALATION RT-QID PRN 12/17/19 12/17/19 His tory [Duoneb 0.5 mg-3 mg/3 ml Soln] Metoprolol Succinate (ER) [Toprol 25 mg PO DAILY 12/17/19 12/17/19 History XL] Potassium Chloride ER [K-Dur 20] 20 meq PO TID 12/17/19 12/17/19 History Allergies Allergy/AdvReac Type Severity Reaction Status Date / Time cefprozil [From Cefzil] Allergy Unknown Verified 12/17/19 18:05 Sulfa (Sulfonamide Allergy Rash/Hives Verified 12/17/19 18:05 Antibiotics) valdecoxib [From Bextra] Allergy Unknown Verified 12/17/19 18:05 codeine AdvReac DIFFICULTY Verified 12/17/19 18:05 URINATING metaxalone [From Skelaxin] AdvReac Nausea & Verified 12/17/19 18:05 Vomiting Physical Exam Vitals: Vital Signs Temp Pulse Pulse Resp BP BP BP 12/18/19 23:14 97.5 F L 63 104/67 12/18/19 21:00 67 12/18/19 20:52 97.4 F L 67 107/75 12/18/19 20:13 97.4 F L 67 107/75 12/18/19 15:00 97.9 F 60 18 95/54 12/18/19 08:29 97.7 F 67 18 105/75 12/18/19 03:00 97.7 F 59 L 16 102/58 Pulse Ox 12/18/19 23:14 94 L 12/18/19 21:00 12/18/19 20:52 97 12/18/19 20:13 97 12/18/19 15:00 95 12/18/19 08:29 97 12/18/19 03:00 99 Intake and Output 12/18/19 12/18/19 12/19/19 14:59 22:59 06:59 Intake Total 1620 1010 Balance 1620 1010 Intake: Oral 1620 1010 Other: Voiding Method Toilet Toilet Incontinent Incontinent # Voids 2 1 General: well nourished, obese, NAD. Vitals reviewed Eyes: PERRL, EOMI, conjunctiva normal HENT: normocephalic, mucus membranes moist Neck: supple, no JVD Lungs: normal respiratory effort, no wheezes or rales CV: Regular rate and rhythm, no murmur. Peripheral pulses 2+ Abdomen: soft, nondistended, no organomegaly Lymph: no cervical or axillary LAD Skin: warm and dry. Neuro: A&Ox3, normal mood and affect. No focal deficits Results CBC & Chem 7: 12/17/19 13:45 12/18/19 07:30 Labs: Abnormal Lab Results - Last 24 Hours (Table) 12/18/19 12/18/19 12/18/19 Range/Units 07:30 07:30 07:30 INR 1.2 H (<1.2) Sodium 127 L (137-145) mmol/L Chloride 86 L (98-107) mmol/L Carbon Dioxide 36 H (22-30) mmol/L BUN 39 H (7-17) mg/dL Glucose 105 H (74-99) mg/dL HDL Cholesterol 69 H (40-60) mg/dL Thrombosis Risk Factor Assmnt - Choose All That Apply Any of the Below Risk Factors Present?: Yes Each Factor Represents 1 point: Obesity (BMI >25) Other Risk Factors: Yes Each Risk Factor Represents 3 Points: History of DVT/PE Other congenital or acquired thrombophilia - If yes, enter type in comment: No Thrombosis Risk Factor Assessment Total Risk Factor Score: 4 Thrombosis Risk Factor Assessment Level: Moderate Risk Assessment and Plan (1) Altered mental status Current Visit: Yes Status: Acute Code(s): R41.82 - ALTERED MENTAL STATUS, UNSPECIFIED SNOMED Code(s): 005839818 (2) Hyponatremia Current Visit: Yes Status: Acute Code(s): E87.1 - HYPO-OSMOLALITY AND HYPONATREMIA SNOMED Code(s): 40451623 (3) Vertigo Current Visit: Yes Status: Acute Code(s): R42 - DIZZINESS AND GIDDINESS SNOMED Code(s): 148400185 (4) CHF (congestive heart failure) Current Visit: No Status: Acute Code(s): I50.9 - HEART FAILURE, UNSPECIFIED SNOMED Code(s): 43352575 (5) Hypokalemia Current Visit: No Status: Acute Code(s): E87.6 - HYPOKALEMIA SNOMED Code(s): 81259558 Plan: 1. Weakness, vertigo. Altered mental status. Consider TIA vs medication side effect vs other. Neurology consult. Continue ASA and plavix. Continue to monitor 2. Chronic systolic CHF. Continue lopressor, lipitor 3. Hx DVT and PE. Continue coumadin. Increase dose to 12 mg qd and follow INR 4. Chronic pain. Continue home Niles. Reduce lyrica dose per neuro. Continue ropinirole 5. Major depression. Continue abilify and trintellix 6. Elevated lactic. Resolved with IVF hydration 7. Hyponatremia 8. Hypokalemia 9. Hypochloremia
[2019-12-19 02:25] VITALS: PULSE 59
[2019-12-19] MEDS: LEVOTHYROXINE 88 MCG TAB PO SCH (05:47)
[2019-12-19 08:00] LABS: INR 1.5 (<1.2); Prothrombin Time 14.4 sec (9.0-12.0)
[2019-12-19 08:06] LABS: Anisocytosis Slight; Basophils % (A) 0 %; Calcium 8.8 mg/dL (8.4-10.2); Eosinophils # (A) 0.1 k/uL (0-0.7); Eosinophils % (A) 2 %; HCT 34.4 % (34.0-46.0); HGB 11.1 gm/dL (11.4-16.0); Lymphocytes # (A) 1.5 k/uL (1.0-4.8); Lymphocytes % (A) 25 %; MCH 27.8 pg (25.0-35.0); MCHC 32.1 g/dL (31.0-37.0); MCV 86.5 fL (80.0-100.0); Magnesium 2.1 mg/dL (1.6-2.3); Mean Platelet Volume 6.7; Monocytes # (A) 0.5 k/uL (0-1.0); Monocytes % (A) 8 %; Neutrophils # (A) 3.7 k/uL (1.3-7.7); Neutrophils % (A) 62 %; Platelet Count 367 k/uL (150-450); Potassium 3.4 mmol/L (3.5-5.1); RBC 3.98 m/uL (3.80-5.40); RDW 16.1 % (11.5-15.5); WBC 5.9 k/uL (3.8-10.6)
[2019-12-19 08:23] VITALS: TEMP 96.9
[2019-12-19 08:26] VITALS: BP 115/90
[2019-12-19] MEDS: SPIRONOLACTONE 25 MG TAB PO SCH (08:33)
[2019-12-19] MEDS: METOPROLOL SUCCINATE (ER) 25 MG TAB.ER.24H PO SCH (08:33)
[2019-12-19] MEDS: TOPIRAMATE 25 MG TAB PO SCH (08:33)
[2019-12-19] MEDS: POTASSIUM CHLORIDE ER 20 MEQ TAB.ER PO SCH (08:33)
[2019-12-19] MEDS: PANTOPRAZOLE 40 MG TABLET PO SCH (08:33)
[2019-12-19] MEDS: PREGABALIN 75 MG CAP PO SCH (08:33)
[2019-12-19] MEDS: ARIPiprazole 10 MG TAB PO SCH (08:33)
[2019-12-19] MEDS: VORTIOXETINE HYDROBROMIDE 10 MG TABLET PO SCH (08:34)
[2019-12-19] MEDS ORDERED: POTASSIUM CHLORIDE ER 20 MEQ TAB.ER PO STA (09:12)
[2019-12-19] MEDS ORDERED: PYRIDOXINE 50 MG TAB PO SCH (10:30)
[2019-12-19] MEDS: HYDROcodone/APAP 7.5-325MG 1 EACH TAB PO SCH (11:55)
[2019-12-19] MEDS: CLOPIDOGREL 75 MG TAB PO SCH (11:55)
[2019-12-19] MEDS ORDERED: CYANOCOBALAMIN 1,000 MCG/ML 1 ML VIAL IM ONE (12:45)
[2019-12-19] MEDS: SODIUM CHLORIDE 0.9% 1,000 ML IV SCH (12:50)
[2019-12-19] MEDS: ASPIRIN 81 MG PO SCH (12:50)
--- NOTE | 2019-12-19 13:23 | P.PN ---
Subjective Progress Note Date: 12/19/19 Patient states she is feeling much better. She wants to go home. Patient still gets "loopy" in the morning after she takes bunch of all medications. Her dose of Lyrica has been decreased to 150 mg 3 times a day. Objective - Vital Signs Vital signs: Vital Signs Temp 96.9 F L 12/19/19 08:19 Pulse 59 L 12/19/19 08:19 Resp 18 12/18/19 15:00 BP 115/90 12/19/19 08:25 Pulse Ox 100 12/19/19 08:25 Intake & Output 12/18/19 12/19/19 12/19/19 18:59 06:59 18:59 Intake Total 2380 250 Output Total 300 Balance 2380 -50 Intake: Oral 2380 250 Output: Urine 300 Other: Voiding Method Toilet Toilet Toilet Incontinent Incontinent Incontinent # Voids 2 2 1 - Exam Patient's mentation is normal. Muscle strength is normal except for deltoids which are weak bilaterally from orthopedic issues. Gait deferred. - Labs CBC & Chem 7: 12/19/19 07:29 12/19/19 11:20 Labs: Abnormal Lab Results - Last 24 Hours (Table) 12/18/19 12/19/19 12/19/19 Range/Units 07:30 07:29 07:29 Hgb (11.4-16.0) gm/dL RDW (11.5-15.5) % PT 14.4 H (9.0-12.0) sec INR 1.5 H (<1.2) Sodium 127 L 128 L (137-145) mmol/L Potassium 3.4 L (3.5-5.1) mmol/L Chloride 86 L 88 L (98-107) mmol/L Carbon Dioxide 36 H 35 H (22-30) mmol/L BUN 39 H 40 H (7-17) mg/dL Glucose 105 H (74-99) mg/dL 12/19/19 Range/Units 07:29 Hgb 11.1 L (11.4-16.0) gm/dL RDW 16.1 H (11.5-15.5) % PT (9.0-12.0) sec INR (<1.2) Sodium (137-145) mmol/L Potassium (3.5-5.1) mmol/L Chloride (98-107) mmol/L Carbon Dioxide (22-30) mmol/L BUN (7-17) mg/dL Glucose (74-99) mg/dL Assessment and Plan Assessment: * Altered mental status, with drowsiness, speech difficulty, likely related to mild metabolic encephalopathy. This is probably related to medication side effect. Patient is on numerous psychoactive medication, which produce neurological adverse effects. * Hyponatremia, probably also contributing to encephalopathy. * History of hypercoagulable state, currently on Coumadin with subtherapeutic INR. * Hypertension * Chronic back pain, status post spinal cord stimulator placement 08/23/2018. * History of vitamin B6 deficiency. Plan: * Patient's excessive drowsiness, speech difficulties probably due to medication side effect. Doubt TIA/CVA. * We will decrease dose of Lyrica to 150 mg 3 times a day. Currently she is on Lyrica 200 mg 3 times a day. The dose can be slowly decreased further as tolerated. * Requip also can produce excessive drowsiness sleepiness. Patient is also on Topamax, Trintillix, Flexeril, Abilify 10 mg, all of them can also contribute to her word finding problems, dizziness and excessive sleepiness. Need to reassess her medication list and decrease/stop some if possible. * Vitamin B6 50 mg daily for history of B6 deficiency. * Patient is on Coumadin for hypercoagulable state. Her INR is subtherapeutic 1.5. Would suggest optimizing INR in the therapeutic range before discharge. Consider bridging if indicated. * Suggest stopping either aspirin or Plavix to prevent bleeding complications, as patient is already on Coumadin as well. * Patient states that she will be taking her Abilify and Trintillix at night to prevent side effects. * Neurologically, no other workup indicated.
--- NOTE | 2019-12-19 14:17 | P.DS ---
Providers Date of admission: 12/18/19 14:57 Expected date of discharge: 12/19/19 Attending physician: Edd Lee MD Consults: 12/17/19 17:12 Consult Physician Routine Consulting Provider: Allan Dukes Consult Reason/Comments: tia Do you want consulting provider notified?: Yes Primary care physician: Edd Lee MD Hospital Course: Final Diagnoses: (1) Altered mental status, possible TIA-doubtful, probable acute metabolic and toxic encephalopathy, secondary to abnormal ELECTROLYTEs, and medication side effect Current Visit: Yes Status: Acute Code(s): R41.82 - ALTERED MENTAL STATUS, UNSPECIFIED SNOMED Code(s): 538453386 (2) Hyponatremia Current Visit: Yes Status: Acute Code(s): E87.1 - HYPO-OSMOLALITY AND HYPONATREMIA SNOMED Code(s): 63160872 (3) Vertigo Current Visit: Yes Status: Acute Code(s): R42 - DIZZINESS AND GIDDINESS SNOMED Code(s): 551090688 (4) CHF (congestive heart failure), systolic Current Visit: No Status: Acute Code(s): I50.9 - HEART FAILURE, UNSPECIFIED SNOMED Code(s): 09874745 (5) Hypokalemia Current Visit: No Status: Acute Code(s): E87.6 - HYPOKALEMIA SNOMED Code(s): 05597663 (6) history of DVT and PE (7) chronic pain syndrome (8) lactic acidosis, resolved with IV hydration Hospital course:Marlin Veras is a 64 yo F with PMH of CAD with recent stenting, systolic CHF, hx DVT/PE, morbid obesity, major depression who presented to the [facility] with dizziness and word finding difficulty. She is on coumadin 10 mg daily and has had multiple strokes and TIAs. She states that prior to her presentation yesterday she had been feeling very tired and foggy, walking unsteady. She became alarmed when she couldn't get some words out such as peanut butter. She denies any chest pain, palpitations, syncope. She has been fluid restricting due to her CHF as well. Pt reports poor sleep and has been having worsened stress and anxiety due to her relationship with daughters. On arrival her BP was 126/80, labs with lactic 2.1, Na 128, K 3.1 INR 1.2. EKG NSR, CT head and CXR no acute process. Maintain on IV fluid hydration. INR currently 1.5. Potassium 3.4, receiving supplementation. Sodium 128.Evaluated by neurology, Lyrica dose decreased. Sensorium improved-significant clinical improvement. Cleared by neurology for discharge. Patient will be discharged home today in a stable condition with guarded prognosis. Patient is on numerous psychoactive medications which can produce neurologic adverse effects-further weaning/adjustment outpatient in clinic. The impression and plan of care has been dictated as directed. : I performed a history and examination of this patient, discussed the same with the dictator. I agree with the dictator's note ,documented as a scribe. Any additional findings or plans will be noted. Patient Condition at Discharge: Stable Plan - Discharge Summary Discharge Rx Participant: No New Discharge Prescriptions: New Topiramate [Topamax] 50 mg PO HS #1 tab Pregabalin [Lyrica] 150 mg PO TID #18 cap Continue Levothyroxine Sodium [Synthroid] 88 mcg PO DAILY Cyclobenzaprine [Flexeril] 5 mg PO TID PRN PRN Reason: Muscle Spasm Vortioxetine Hydrobromide [Trintellix] 10 mg PO DAILY rOPINIRole HCL [Requip] 3 mg PO DAILY@2100 Hydrocodone/Acetaminophen [Jenkins 7.5-325] 1 tab PO TID Esomeprazole Magnesium 40 mg PO DAILY Aspirin 81 mg PO DAILY #30 chew Atorvastatin [Lipitor] 40 mg PO HS #30 tab Nitroglycerin Sl Tabs [Nitrostat] 0.4 mg SUBLINGUAL Q5M PRN #30 tab PRN Reason: Chest Pain Spironolactone [Aldactone] 25 mg PO DAILY #30 tab ARIPiprazole [Abilify] 10 mg PO DAILY #30 tab Warfarin [Coumadin] 10 mg PO DAILY@1800 #10 tab Folic Acid 1 mg PO DAILY@1200 #30 tab Multivitamins, Thera [Multivitamin (formulary)] 1 each PO DAILY@1200 #30 tab Sennosides-Docusate Sodium [Senokot-S] 2 each PO HS #60 tab Thiamine [Vitamin B-1] 100 mg PO DAILY@1200 #30 tab Furosemide [Lasix] 40 mg PO DAILY #60 tab Ipratropium-Albuterol Nebulize [Duoneb 0.5 mg-3 mg/3 ml Soln] 3 ml INHALATION RT-QID PRN PRN Reason: Shortness Of Breath Metoprolol Succinate (ER) [Toprol XL] 25 mg PO DAILY Potassium Chloride ER [K-Dur 20] 20 meq PO TID Changed Topiramate 25 mg PO DAILY #0 Discontinued Pregabalin [Lyrica] 200 mg PO TID Clopidogrel [Plavix] 75 mg PO DAILY #30 tab Discharge Medication List Levothyroxine Sodium [Synthroid] 88 mcg PO DAILY 08/09/13 [History] Cyclobenzaprine [Flexeril] 5 mg PO TID PRN 11/04/15 [History] Vortioxetine Hydrobromide [Trintellix] 10 mg PO DAILY 11/04/15 [History] rOPINIRole HCL [Requip] 3 mg PO DAILY@2100 11/09/17 [History] Esomeprazole Magnesium 40 mg PO DAILY 10/18/19 [History] Hydrocodone/Acetaminophen [Jenkins 7.5-325] 1 tab PO TID 10/18/19 [History] Aspirin 81 mg PO DAILY #30 chew 10/20/19 [Rx] Atorvastatin [Lipitor] 40 mg PO HS #30 tab 10/20/19 [Rx] Nitroglycerin Sl Tabs [Nitrostat] 0.4 mg SUBLINGUAL Q5M PRN #30 tab 10/20/19 [Rx] Spironolactone [Aldactone] 25 mg PO DAILY #30 tab 10/21/19 [Rx] ARIPiprazole [Abilify] 10 mg PO DAILY #30 tab 12/02/19 [Rx] Folic Acid 1 mg PO DAILY@1200 #30 tab 12/02/19 [Rx] Furosemide [Lasix] 40 mg PO DAILY #60 tab 12/02/19 [Rx] Multivitamins, Thera [Multivitamin (formulary)] 1 each PO DAILY@1200 #30 tab 12/02/19 [Rx] Sennosides-Docusate Sodium [Senokot-S] 2 each PO HS #60 tab 12/02/19 [Rx] Thiamine [Vitamin B-1] 100 mg PO DAILY@1200 #30 tab 12/02/19 [Rx] Warfarin [Coumadin] 10 mg PO DAILY@1800 #10 tab 12/02/19 [Rx] Ipratropium-Albuterol Nebulize [Duoneb 0.5 mg-3 mg/3 ml Soln] 3 ml INHALATION RT-QID PRN 12/17/19 [History] Metoprolol Succinate (ER) [Toprol XL] 25 mg PO DAILY 12/17/19 [History] Potassium Chloride ER [K-Dur 20] 20 meq PO TID 12/17/19 [History] Pregabalin [Lyrica] 150 mg PO TID #18 cap 12/19/19 [Rx] Topiramate 25 mg PO DAILY #0 12/19/19 [Rx] Topiramate [Topamax] 50 mg PO HS #1 tab 12/19/19 [Rx] Follow up Appointment(s)/Referral(s): [facility] [NON-STAFF] - 1-2 Days [facility], [NON-STAFF] - 1-2 Days Edd Lee MD [Primary Care Provider] - 3 Days Ambulatory/Diagnostic Orders: Prothrombin Time INR [LAB.AMB] Time Frame: 12/23/19, Location: None Selected
--- NOTE | 2019-12-21 14:21 | CDI ---
Documentation Clarification Form Date: 12/21/19 From: Jana Maradiaga Phone: If you have a question about this query, please contact Cristine Roa, Senior Drupal Developer at [phone] between 8am and 5pm. Admit Date: 12/18/19 Discharge Date:12/19/19 Patient Name: XENIA NEWMAN Visit Number: [id number] ATTENTION: The Clinical Documentation Specialists (CDI) and [facility] Coding Staff appreciate your assistance in clarifying documentation. Please respond to the clarification below the line at the bottom and electronically sign. The CDI & [facility] Coding staff will review the response and follow-up if needed. Please note: Queries are made part of the Legal Health Record. If you have any questions, please contact the author of this message via ITS. Dear Dr. Edd Lee, The diagnosis hypoxic respiratory failure was documented in the past medical history in ED note, consult and H&P, but is not noted in subsequent documentation. History/Risk Factors: toxic encephalopathy d/t meds, right hemiplagia, HTN w chronic systolic CHF, hyponatremia, acidosis, morbid obesity, pulm HTN, COPD, home O2 Clinical Indicators: O2 sats-99 on admission, 93 9/15-2L O2 and 94 9/16-3L O2 Treatment: O2 Please clarify if the acuity of hypoxic respiratory failure: Chronic Other, please specify Clinically unable to determine chronic respiratory failure MTDD
== END 2019-12-19 15:25 | disposition home health service (06) | DRG 92 ==
LOC: EC 12:53 → 3NCARDOBS 17:12 → OBSVTOIN 12-18 14:57
PROVIDERS: ADMIT Family Medicine; ATTEND Family Medicine
DX: G92 Toxic encephalopathy (principal); I69.351 Hemiplegia and hemiparesis following cerebral infarction affecting right dominant side; J96.11 Chronic respiratory failure with hypoxia; E87.1 Hypo-osmolality and hyponatremia; I50.22 Chronic systolic (congestive) heart failure; E87.2 Acidosis; Z68.42 Body mass index [BMI] 45.0-49.9, adult; I27.20 Pulmonary hypertension, unspecified; I11.0 Hypertensive heart disease with heart failure; E66.01 Morbid (severe) obesity due to excess calories; J44.9 Chronic obstructive pulmonary disease, unspecified; E87.8 Other disorders of electrolyte and fluid balance, not elsewhere classified; Z99.81 Dependence on supplemental oxygen; T43.205A Adverse effect of unspecified antidepressants, initial encounter; E87.6 Hypokalemia; I69.328 Other speech and language deficits following cerebral infarction; R40.2142 Coma scale, eyes open, spontaneous, at arrival to emergency department; R40.2362 Coma scale, best motor response, obeys commands, at arrival to emergency department; R40.2252 Coma scale, best verbal response, oriented, at arrival to emergency department; T50.916A Underdosing of multiple unspecified drugs, medicaments and biological substances, initial encounter; G47.33 Obstructive sleep apnea (adult) (pediatric); I44.0 Atrioventricular block, first degree; R00.1 Bradycardia, unspecified; F32.9 Major depressive disorder, single episode, unspecified; F06.4 Anxiety disorder due to known physiological condition; E03.9 Hypothyroidism, unspecified; I25.10 Atherosclerotic heart disease of native coronary artery without angina pectoris; M79.7 Fibromyalgia; G25.81 Restless legs syndrome; K21.9 Gastro-esophageal reflux disease without esophagitis; E78.5 Hyperlipidemia, unspecified; K44.9 Diaphragmatic hernia without obstruction or gangrene; K58.9 Irritable bowel syndrome, unspecified; H91.90 Unspecified hearing loss, unspecified ear; H93.13 Tinnitus, bilateral; I25.2 Old myocardial infarction; G89.4 Chronic pain syndrome; M54.5 Low back pain; M81.0 Age-related osteoporosis without current pathological fracture; M19.90 Unspecified osteoarthritis, unspecified site; R32 Unspecified urinary incontinence; Z91.128 Patient's intentional underdosing of medication regimen for other reason; Z79.82 Long term (current) use of aspirin; Z79.02 Long term (current) use of antithrombotics/antiplatelets; Z79.891 Long term (current) use of opiate analgesic; Z79.890 Hormone replacement therapy; Z79.01 Long term (current) use of anticoagulants; Z79.899 Other long term (current) drug therapy; Z91.81 History of falling; Z86.79 Personal history of other diseases of the circulatory system; Z86.718 Personal history of other venous thrombosis and embolism; Z86.711 Personal history of pulmonary embolism; Z86.69 Personal history of other diseases of the nervous system and sense organs; Z87.01 Personal history of pneumonia (recurrent); Z87.11 Personal history of peptic ulcer disease; Z98.84 Bariatric surgery status; Z90.710 Acquired absence of both cervix and uterus; Z98.51 Tubal ligation status; Z87.42 Personal history of other diseases of the female genital tract; Z87.19 Personal history of other diseases of the digestive system; Z98.890 Other specified postprocedural states; Z95.5 Presence of coronary angioplasty implant and graft; Z87.448 Personal history of other diseases of urinary system; Z87.39 Personal history of other diseases of the musculoskeletal system and connective tissue; Z86.39 Personal history of other endocrine, nutritional and metabolic disease; Z96.82 Presence of neurostimulator; Z87.2 Personal history of diseases of the skin and subcutaneous tissue; Z87.09 Personal history of other diseases of the respiratory system; Y63.6 Underdosing and nonadministration of necessary drug, medicament or biological substance; Z88.1 Allergy status to other antibiotic agents; Z88.5 Allergy status to narcotic agent; Z88.2 Allergy status to sulfonamides; Z88.8 Allergy status to other drugs, medicaments and biological substances; Z82.49 Family history of ischemic heart disease and other diseases of the circulatory system; Z83.518 Family history of other specified eye disorder; Z80.9 Family history of malignant neoplasm, unspecified
CPT/HCPCS: 36415; 70450; 71046; 80048; 80053; 80061; 81003; 82140; 82550; 83036; 83605; 83735; 83880; 84100; 84132; 84443; 84484; 85025; 85610; 85730; 93005; 96374; 96375; 99285

== ENCOUNTER → 2020-03-03 | Outpatient (CLI) | payer MEDICARE ==
[2020-03-04 01:29] LABS: Anion Gap 7.4 mmol/L (4.00-12.00); Carbon Dioxide 23.6 mmol/L (21.6-31.8); Non-African American GFR(CKD) 58.7 (60.0-200.0); Potassium 4.4 mmol/L (3.5-5.5)
== END | disposition home or self-care (01) ==
LOC: LABWHC1 14:51
PROVIDERS: ATTEND Internal Medicine Cardiovascular Disease
DX: I50.21 Acute systolic (congestive) heart failure (principal)
CPT/HCPCS: 36415; 80048; 83880; 84443

== ENCOUNTER 2020-03-25 12:06 | Emergency (ER) | payer MEDICARE ==
[2020-03-25 12:31] VITALS: BP 142/80; PULSE 67; RESP 20; TEMP 98.2
[2020-03-25] MEDS ORDERED: KETOROLAC 15 MG/ML 1 ML VIAL IM STA (12:43)
[2020-03-25] MEDS ORDERED: HYDROmorphone 1 MG/ML 1 ML SYRINGE IM STA (12:43)
--- NOTE | 2020-03-25 13:07 | ED ---
General Adult HPI - General Chief complaint: Extremity Injury, Upper Stated complaint: shoulder & left arm pain Time Seen by Provider: 03/25/20 12:35 Source: patient, RN notes reviewed, old records reviewed Mode of arrival: ambulatory Limitations: no limitations - History of Present Illness Initial comments: 65-year-old female presenting for evaluation of left shoulder pain. Patient has had previous orthopedic evaluation regarding this pain and is scheduled to see a new orthopedic surgeon in less than 2 weeks for surgical evaluation. She states that her [place] 7.5 mg tablets are not working as well as a previously had. She is also taking Motrin. She states that the pain has increased that she's developed some numbness in the first second and third digits as well as shooting pain. She denies any recent fall or trauma. She denies central chest pain. Pain is worse with movement of the left shoulder. - Related Data Home Medications Medication Instructions Recorded Confirmed Levothyroxine Sodium [Synthroid] 88 mcg PO DAILY 08/09/13 12/17/19 Cyclobenzaprine [Flexeril] 5 mg PO TID PRN 11/04/15 12/17/19 Vortioxetine Hydrobromide 10 mg PO DAILY 11/04/15 12/17/19 [Trintellix] rOPINIRole HCL [Requip] 3 mg PO DAILY@2100 11/09/17 12/17/19 Esomeprazole Magnesium 40 mg PO DAILY 10/18/19 12/17/19 Hydrocodone/Acetaminophen [[place] 1 tab PO TID 10/18/19 12/17/19 7.5-325] Ipratropium-Albuterol Nebulize 3 ml INHALATION RT-QID PRN 12/17/19 12/17/19 [Duoneb 0.5 mg-3 mg/3 ml Soln] Metoprolol Succinate (ER) [Toprol 25 mg PO DAILY 12/17/19 12/17/19 XL] Potassium Chloride ER [K-Dur 20] 20 meq PO TID 12/17/19 12/17/19 Previous Rx's Medication Instructions Recorded Aspirin 81 mg PO DAILY #30 chew 10/20/19 Atorvastatin [Lipitor] 40 mg PO HS #30 tab 10/20/19 Nitroglycerin Sl Tabs [Nitrostat] 0.4 mg SUBLINGUAL Q5M PRN #30 tab 10/20/19 Spironolactone [Aldactone] 25 mg PO DAILY #30 tab 10/21/19 ARIPiprazole [Abilify] 10 mg PO DAILY #30 tab 12/02/19 Folic Acid 1 mg PO DAILY@1200 #30 tab 12/02/19 Furosemide [Lasix] 40 mg PO DAILY #60 tab 12/02/19 Multivitamins, Thera [Multivitamin 1 each PO DAILY@1200 #30 tab 12/02/19 (formulary)] Sennosides-Docusate Sodium 2 each PO HS #60 tab 12/02/19 [Senokot-S] Thiamine [Vitamin B-1] 100 mg PO DAILY@1200 #30 tab 12/02/19 Warfarin [Coumadin] 10 mg PO DAILY@1800 #10 tab 12/02/19 Pregabalin [Lyrica] 150 mg PO TID #18 cap 12/19/19 Topiramate 25 mg PO DAILY #0 12/19/19 Topiramate [Topamax] 50 mg PO HS #1 tab 12/19/19 methylPREDNISolone Dose Pack 4 mg PO DIRECTED #21 package 03/25/20 [Medrol Dose Pack] Allergies Allergy/AdvReac Type Severity Reaction Status Date / Time cefprozil [From Cefzil] Allergy Unknown Verified 03/25/20 12:31 Sulfa (Sulfonamide Allergy Rash/Hives Verified 03/25/20 12:31 Antibiotics) valdecoxib [From Bextra] Allergy Unknown Verified 03/25/20 12:31 codeine AdvReac DIFFICULTY Verified 03/25/20 12:31 URINATING metaxalone [From Skelaxin] AdvReac Nausea & Verified 03/25/20 12:31 Vomiting Review of Systems ROS Statement: Those systems with pertinent positive or pertinent negative responses have been documented in the HPI. ROS Other: All systems not noted in ROS Statement are negative. 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 Last Myocardial Infarction Date:: 2002 History of Any Multi-Drug Resistant Organisms: None Reported Past Surgical History: Bariatric Surgery, Hernia Repair, Hysterectomy, Orthopedic Surgery, Tubal Ligation Additional Past Surgical History / Comment(s): 10/19/19 PCI with stent, EGDs, colonoscopy/benign polyps, gastric bypass with revision, ventral and hiatal hernia repair, bladder suspension, R rotator curr repair/revision, L knee arthroscopy, rectocele, perinealplasty, Past Anesthesia/Blood Transfusion Reactions: Motion Sickness Past Psychological History: Anxiety, Depression Smoking Status: Never smoker Past Alcohol Use History: Rare Past Drug Use History: None Reported - Past Family History Mother Family Medical History: Coronary Artery Disease (CAD), Eye Disorder Additional Family Medical History / Comment(s): Mother is 91 yrs old Father Family Medical History: Myocardial Infarction ([place]) Additional Family Medical History / Comment(s): Father of a massive [place] at the age of 53 yrs. Sister(s) Family Medical History: Cancer General Exam Limitations: no limitations General appearance: alert, in no apparent distress Head exam: Present: atraumatic, normocephalic Eye exam: Present: normal appearance, PERRL ENT exam: Present: normal exam Neck exam: Present: normal inspection. Absent: tenderness, meningismus Respiratory exam: Present: normal lung sounds bilaterally. Absent: respiratory distress Cardiovascular Exam: Present: regular rate, normal rhythm GI/Abdominal exam: Present: soft. Absent: distended, tenderness Extremities exam: Present: other (Severe pain with range of motion of the left shoulder. No external skin changes, distal pulses are intact, patient has normal adult specialist strength in the left hand.) Neurological exam: Present: alert, oriented X3, CN II-XII intact. Absent: motor sensory deficit Psychiatric exam: Present: normal affect, normal mood Skin exam: Present: warm, dry, intact. Absent: cyanosis, diaphoretic Course Vital Signs 03/25/20 12:26 Temperature 98.2 F Pulse Rate 67 Respiratory 20 Rate Blood Pressure 142/80 O2 Sat by Pulse 99 Oximetry Medical Decision Making - Medical Decision Making 65-year-old female with chronic left shoulder pain. Patient has an appointment with orthopedics in the near future she will make appointment with her primary care for Monday. Her pain is controlled the emergency department with intramuscular medication. X-ray showing impingement, osteoarthritis, no fracture dislocation. Pain controlled and patient will be discharged home. She is not driving. Disposition Clinical Impression: Shoulder impingement syndrome, Osteoarthritis involving joint of upper arm Disposition: HOME SELF-CARE Condition: Fair Instructions (If sedation given, give patient instructions): Rotator Cuff Injury (ED), Osteoarthritis (ED) Prescriptions: methylPREDNISolone Dose Pack [Medrol Dose Pack] 4 mg PO DIRECTED #21 package Is patient prescribed a controlled substance at d/c from ED?: No Referrals: Edd Lee MD [Primary Care Provider] - 1-2 days Time of Disposition: 13:43
--- NOTE | 2020-03-25 13:25 | XR ---
Left shoulder HISTORY: Pain 3 views of left shoulder correlation previous exam 09/22/2019 Question prior distal clavicular resection. The left shoulder is high riding. There is marginal spurr ing and joint space loss at the glenohumeral joint. Bone mineralization is reduced. No fracture or di slocation. Left lung apex as visualized is normal. There is erosion at the inferior acromion, distal acromion is downturned, there is distal acromial spur formation. Thoracic cord stimulator lead is pre sent. IMPRESSION: Osteoarthritis. Possible chronic rotator cuff tear. Relate for impingement.
== END 2020-03-25 14:05 | disposition home or self-care (01) ==
LOC: EC 12:06
DX: M75.42 Impingement syndrome of left shoulder (principal); M19.012 Primary osteoarthritis, left shoulder; I11.0 Hypertensive heart disease with heart failure; I50.9 Heart failure, unspecified; J44.9 Chronic obstructive pulmonary disease, unspecified; H91.90 Unspecified hearing loss, unspecified ear; E03.9 Hypothyroidism, unspecified; M79.7 Fibromyalgia; G43.909 Migraine, unspecified, not intractable, without status migrainosus; G25.81 Restless legs syndrome; K21.9 Gastro-esophageal reflux disease without esophagitis; I25.119 Atherosclerotic heart disease of native coronary artery with unspecified angina pectoris; F32.9 Major depressive disorder, single episode, unspecified; I25.2 Old myocardial infarction; Z79.891 Long term (current) use of opiate analgesic; Z79.899 Other long term (current) drug therapy; Z79.890 Hormone replacement therapy; Z88.1 Allergy status to other antibiotic agents; Z88.2 Allergy status to sulfonamides; Z88.5 Allergy status to narcotic agent; Z88.6 Allergy status to analgesic agent; Z88.8 Allergy status to other drugs, medicaments and biological substances; Z86.718 Personal history of other venous thrombosis and embolism; Z86.711 Personal history of pulmonary embolism; Z86.73 Personal history of transient ischemic attack (TIA), and cerebral infarction without residual deficits
CPT/HCPCS: 99284 ×2; 96372 ×3; 73030; J1170; J1885

== ENCOUNTER 2020-05-15 09:01 | Inpatient (IN) | payer MEDICARE ==
[2020-05-15] MEDS ORDERED: SODIUM CHLORIDE 0.9% 500 ML 500 ML IV STA (09:12)
[2020-05-15] MEDS ORDERED: HYDROcodone/APAP 7.5-325MG 1 EACH TAB PO ONE (09:14)
--- NOTE | 2020-05-15 10:04 | ED ---
Fall HPI <Bhavik Bone - Last Filed: 05/15/20 12:39> - General Source: patient Mode of arrival: ambulatory <Alina Raygoza - Last Filed: 05/15/20 13:21> - General Chief Complaint: Fall Stated Complaint: Fall Time Seen by Provider: 05/15/20 09:05 - History of Present Illness Initial Comments: Patient is a 65-year-old female, with multiple comorbidities including COPD on 3 L at home, heart disease, presenting to the emergency department via EMS after a fall at home. Patient had coffee in her hand and her cane in the other hand, she got lightheaded so she sat down to rest, she states when she got back up she felt weak and fell over to her left side. She is complaining of left-sided shoulder, knee, foot pain. She states she did hit her head. She did not lose consciousness. She is on blood thinners. Patient admits to chronic left shoulder pain, she is scheduled for a total shoulder replacement in June. She states over the past week and she feels like she has been feeling weaker than normal. She states she is normally on 3 L of O2 at home however she recently received a new tank and materials however no one has looked this up for her, so she has been without her home O2 for approximately 3 weeks. She denies any fever or chills, no chest pain, some increased shortness of breath. She denies any abdominal pain, no nausea or vomiting. She states she normally walks with her cane. She does have history of stroke with some right-sided weakness. She has no further complaints at this time. Upon arrival to the ER, her vital signs are stable. (Ailna Raygoza) - Related Data Home Medications Medication Instructions Recorded Confirmed Levothyroxine Sodium [Synthroid] 88 mcg PO DAILY 08/09/13 05/15/20 Vortioxetine Hydrobromide 10 mg PO DAILY 11/04/15 05/15/20 [Trintellix] rOPINIRole HCL [Requip] 6 mg PO HS@2100 11/09/17 05/15/20 Esomeprazole Magnesium 40 mg PO DAILY 10/18/19 05/15/20 Hydrocodone/Acetaminophen [[place] 1 tab PO QID 10/18/19 05/15/20 7.5-325] Ipratropium-Albuterol Nebulize 3 ml INHALATION RT-QID PRN 12/17/19 05/15/20 [Duoneb 0.5 mg-3 mg/3 ml Soln] Metoprolol Succinate (ER) [Toprol 25 mg PO DAILY 12/17/19 05/15/20 XL] Potassium Chloride ER [K-Dur 20] 40 meq PO QID 12/17/19 05/15/20 Amitriptyline HCl [Elavil] 75 mg PO HS 05/15/20 05/15/20 Bumetanide [BUMEX] 1 mg PO BID 05/15/20 05/15/20 Cariprazine HCl [Vraylar] 1.5 mg PO DAILY 05/15/20 05/15/20 Diclofenac Potassium [Cataflam] 50 mg PO BID 05/15/20 05/15/20 Ergocalciferol [Vitamin D2 (1250 1,250 mcg PO RALPH 05/15/20 05/15/20 Mcg = 43912 Iu)] Furosemide [Lasix] 40 mg PO BID 05/15/20 05/15/20 Losartan [Cozaar] 25 mg PO DAILY 05/15/20 05/15/20 rOPINIRole HCL [Requip] 2 mg PO QAM 05/15/20 05/15/20 Previous Rx's Medication Instructions Recorded Atorvastatin [Lipitor] 40 mg PO HS #30 tab 10/20/19 Nitroglycerin Sl Tabs [Nitrostat] 0.4 mg SUBLINGUAL Q5M PRN #30 tab 10/20/19 Warfarin [Coumadin] 10 mg PO DAILY@1800 #10 tab 12/02/19 Topiramate [Topamax] 50 mg PO HS #1 tab 12/19/19 Allergies Allergy/AdvReac Type Severity Reaction Status Date / Time cefprozil [From Cefzil] Allergy Unknown Verified 05/15/20 12:24 Sulfa (Sulfonamide Allergy Rash/Hives Verified 05/15/20 12:24 Antibiotics) valdecoxib [From Bextra] Allergy Unknown Verified 05/15/20 12:24 codeine AdvReac DIFFICULTY Verified 05/15/20 12:24 URINATING metaxalone [From Skelaxin] AdvReac Nausea & Verified 05/15/20 12:24 Vomiting Review of Systems ROS Other: All systems not noted in ROS Statement are negative. <LizandroBhavik - Last Filed: 05/15/20 12:39> ROS Other: All systems not noted in ROS Statement are negative. <Alina Raygoza - Last Filed: 05/15/20 13:21> ROS Statement: Those systems with pertinent positive or pertinent negative responses have been documented in the HPI. Past Medical History Past Medical History: Asthma, Coronary Artery Disease (CAD), Chest Pain / Angina, Heart Failure, COPD, CVA/TIA, Deep Vein Thrombosis (DVT), Fibromyalgia, GERD/Reflux, GI Bleed, Hearing Disorder / Deafness, Hyperlipidemia, Hypertension, Memory Impairment, Myocardial Infarction ([place]), Osteoarthritis (OA), Pneumonia, Pulmonary Embolus (PE), Respiratory Disorder, Seizure Disorder, Skin Disorder, Sleep Apnea/CPAP/BIPAP, Thyroid Disorder Additional Past Medical History / Comment(s): 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 Last Myocardial Infarction Date:: 2002 History of Any Multi-Drug Resistant Organisms: None Reported Past Surgical History: Bariatric Surgery, Hernia Repair, Hysterectomy, Orthopedic Surgery, Tubal Ligation Additional Past Surgical History / Comment(s): 10/19/19 PCI with stent, EGDs, colonoscopy/benign polyps, gastric bypass with revision, ventral and hiatal hernia repair, bladder suspension, R rotator curr repair/revision, L knee arthroscopy, rectocele, perinealplasty, Past Anesthesia/Blood Transfusion Reactions: Motion Sickness Past Psychological History: Anxiety, Depression Smoking Status: Never smoker Past Alcohol Use History: Rare Past Drug Use History: None Reported - Past Family History Mother Family Medical History: Coronary Artery Disease (CAD), Eye Disorder Additional Family Medical History / Comment(s): Mother is 91 yrs old Father Family Medical History: Myocardial Infarction ([place]) Additional Family Medical History / Comment(s): Father of a massive [place] at the age of 53 yrs. Sister(s) Family Medical History: Cancer <Alina Raygoza - Last Filed: 05/15/20 13:21> General Exam Limitations: no limitations Rectal exam: Present: normal inspection, normal rectal tone, heme (+) stool, black stool <Alina Raygoza - Last Filed: 05/15/20 13:21> - General Exam Comments Initial Comments: GENERAL: Patient is well-developed and well-nourished. Patient is nontoxic and in no acute distress. HEAD: Atraumatic, normocephalic. No hematomas, no signs of basal skull fracture. EYES: Pupils equal round and reactive to light, extraocular movements intact, sclera anicteric, conjunctiva are normal. Eyelids were unremarkable. ENT: TMs normal, nares patent, oropharynx clear without exudates. Moist mucous membranes. NECK: Normal range of motion, supple without lymphadenopathy or JVD. No midline tenderness. LUNGS: Unlabored respirations. Breath sounds clear to auscultation bilaterally and equal. No wheezes rales or rhonchi. HEART: Regular rate and rhythm without murmurs, rubs or gallops. ABDOMEN: Soft, nontender, normoactive bowel sounds. No guarding, no rebound. No masses appreciated. : Deferred MUSCULOSKELETAL: She does have pain in her left shoulder, she does have a large bruise near her axilla area on the left side. She also has pain in her left knee and left foot as well. No obvious deformity or swelling. He is neurovascular intact in all 4 extremities bilaterally. No clubbing or cyanosis. NEUROLOGICAL: Patient is alert and oriented x 3. Motor and sensory are also intact. Cranial nerves II through XII grossly intact. Symmetrical smile. Normal speech, normal gait. PSYCH: Normal mood, normal affect. SKIN: Warm, Dry, normal turgor, no rashes or lesions noted. (IdalmisAlina Ward) Course <LizandroBhavik - Last Filed: 05/15/20 12:39> Vital Signs 05/15/20 05/15/20 05/15/20 09:03 11:00 12:00 Temperature 97.9 F Pulse Rate 68 62 66 Respiratory 18 20 20 Rate Blood Pressure 105/81 99/65 89/60 O2 Sat by Pulse 100 99 90 L Oximetry 02/12/21 02/12/21 02/12/21 12:15 12:31 12:45 Temperature Pulse Rate 67 71 60 Respiratory 20 22 22 Rate Blood Pressure 78/52 93/70 110/70 O2 Sat by Pulse 89 L 95 92 L Oximetry - Reevaluation(s) Reevaluation #1: 05/15/20 12:39 PA supervision: I did personally do a [id number] evaluation the patient did present with complaints of weakness and a fall. She's been having dark-colored stools are quite a while.she was found have a hemoglobin of 5.7. No abdominal pain. She is on Coumadin and she was found to be toxic. She has chronic A. fib. She will be admitted case was discussed Dr. robert and Dr. Richard. She did demonstrate a hypotensive episode. She did require IV fluids in addition to FFP and blood. (Bhavik Bone) Medical Decision Making - Lab Data Result diagrams: 05/15/20 11:00 05/15/20 11:00 <Bhavik Bone - Last Filed: 05/15/20 12:39> - Lab Data Result diagrams: 05/15/20 11:00 05/15/20 11:00 <Alina Raygoza - Last Filed: 05/15/20 13:21> - Medical Decision Making Patient is a 65-year-old female with multiple comorbidities presenting after a fall complaining of left-sided pain as well as weakness over the past week. She is normally on 3 L of oxygen at home but has been without her oxygen for the past 3 weeks. Her vital signs are stable upon arrival. CT of the brain and C- spine showed no acute abnormalities, no acute hemorrhage. X-rays of the left knee and foot show no acute fractures. X-rays of the left shoulder show chronic rotator cuff tear, the angle of the x-ray could show an avulsion of the acromion from the scalp to the however patient is not having any significant pain in that location. He does have chronic left shoulder issues, has surgery scheduled for next month. Patient was a hard stick, lab leanne the labs. Hemoglobin returned at 5.8, INR is greater than 10, to occult was positive. Troponin is normal, BNP is 266. Upon questioning a patient's Coumadin, she does take this daily. She states that over the past few days she has been having intermittent nosebleeds as well as dark black stools. Patient's blood pressure has been trending down slowly, and 99/65 and 89/60. Patient was given another liter bolus, we did order 2 units of blood, 2 units of fresh frozen plasma. Patient will be admitted to the ICU for acute anemia. We also gave her vitamin K. Patient was accepted by Dr. robert with Dr. Richard on consult. Patient currently has no active bleeding, blood pressure is 110/70. Case discussed with Dr. Bone. (Alina Raygoza) - Lab Data Lab Results 05/15/20 05/15/20 05/15/20 Range/Units 11:00 11:00 11:00 WBC 8.2 (3.8-10.6) k/uL RBC 2.13 L (3.80-5.40) m/uL Hgb 5.8 L* (11.4-16.0) gm/dL Hct 18.4 L* (34.0-46.0) % MCV 86.3 (80.0-100.0) fL MCH 27.0 (25.0-35.0) pg MCHC 31.3 (31.0-37.0) g/dL RDW 17.3 H (11.5-15.5) % Plt Count 311 (150-450) k/uL MPV 7.8 Neutrophils % 76 % Lymphocytes % 12 % Monocytes % 8 % Eosinophils % 2 % Basophils % 0 % Neutrophils # 6.3 (1.3-7.7) k/uL Lymphocytes # 1.0 (1.0-4.8) k/uL Monocytes # 0.7 (0-1.0) k/uL Eosinophils # 0.1 (0-0.7) k/uL Basophils # 0.0 (0-0.2) k/uL Hypochromasia Moderate Anisocytosis Slight PT >130.0 H (9.0-12.0) sec INR >10.0 H* (<1.2) APTT 121.6 H* (22.0-30.0) sec Sodium 131 L (137-145) mmol/L Potassium 5.1 (3.5-5.1) mmol/L Chloride 100 (98-107) mmol/L Carbon Dioxide 26 (22-30) mmol/L Anion Gap 5 mmol/L BUN 59 H (7-17) mg/dL Creatinine 1.11 H (0.52-1.04) mg/dL Est GFR (CKD-EPI)AfAm 60 (>60 ml/min/1.73 sqM) Est GFR (CKD-EPI)NonAf 52 (>60 ml/min/1.73 sqM) Glucose 99 (74-99) mg/dL Plasma Lactic Acid Steve (0.7-2.0) mmol/L Calcium 8.3 L (8.4-10.2) mg/dL Magnesium 2.6 H (1.6-2.3) mg/dL Total Bilirubin 0.6 (0.2-1.3) mg/dL AST 45 H (14-36) U/L ALT 30 (4-34) U/L Alkaline Phosphatase 87 (38-126) U/L Troponin I (0.000-0.034) ng/mL NT-Pro-B Natriuret Pep pg/mL Total Protein 5.4 L (6.3-8.2) g/dL Albumin 2.9 L (3.5-5.0) g/dL Urine Color Urine Appearance (Clear) Urine pH (5.0-8.0) Ur Specific [place] (1.001-1.035) Urine Protein (Negative) Urine Glucose (UA) (Negative) Urine Ketones (Negative) Urine Blood (Negative) Urine Nitrite (Negative) Urine Bilirubin (Negative) Urine Urobilinogen (<2.0) mg/dL Ur Leukocyte Esterase (Negative) Stool Occult Blood (Negative) Blood Type Blood Type Recheck Bld Type Recheck Status Antibody Screen Crossmatch Spec Expiration Date 05/15/20 05/15/20 05/15/20 Range/Units 11:00 11:00 11:00 WBC (3.8-10.6) k/uL RBC (3.80-5.40) m/uL Hgb (11.4-16.0) gm/dL Hct (34.0-46.0) % MCV (80.0-100.0) fL MCH (25.0-35.0) pg MCHC (31.0-37.0) g/dL RDW (11.5-15.5) % Plt Count (150-450) k/uL MPV Neutrophils % % Lymphocytes % % Monocytes % % Eosinophils % % Basophils % % Neutrophils # (1.3-7.7) k/uL Lymphocytes # (1.0-4.8) k/uL Monocytes # (0-1.0) k/uL Eosinophils # (0-0.7) k/uL Basophils # (0-0.2) k/uL Hypochromasia Anisocytosis PT (9.0-12.0) sec INR (<1.2) APTT (22.0-30.0) sec Sodium (137-145) mmol/L Potassium (3.5-5.1) mmol/L Chloride (98-107) mmol/L Carbon Dioxide (22-30) mmol/L Anion Gap mmol/L BUN (7-17) mg/dL Creatinine (0.52-1.04) mg/dL Est GFR (CKD-EPI)AfAm (>60 ml/min/1.73 sqM) Est GFR (CKD-EPI)NonAf (>60 ml/min/1.73 sqM) Glucose (74-99) mg/dL Plasma Lactic Acid Steve 0.9 (0.7-2.0) mmol/L Calcium (8.4-10.2) mg/dL Magnesium (1.6-2.3) mg/dL Total Bilirubin (0.2-1.3) mg/dL AST (14-36) U/L ALT (4-34) U/L Alkaline Phosphatase (38-126) U/L Troponin I <0.012 (0.000-0.034) ng/mL NT-Pro-B Natriuret Pep 266 pg/mL Total Protein (6.3-8.2) g/dL Albumin (3.5-5.0) g/dL Urine Color Urine Appearance (Clear) Urine pH (5.0-8.0) Ur Specific [place] (1.001-1.035) Urine Protein (Negative) Urine Glucose (UA) (Negative) Urine Ketones (Negative) Urine Blood (Negative) Urine Nitrite (Negative) Urine Bilirubin (Negative) Urine Urobilinogen (<2.0) mg/dL Ur Leukocyte Esterase (Negative) Stool Occult Blood (Negative) Blood Type Blood Type Recheck Bld Type Recheck Status Antibody Screen Crossmatch Spec Expiration Date 05/15/20 05/15/20 05/15/20 Range/Units 12:21 12:21 12:55 WBC (3.8-10.6) k/uL RBC (3.80-5.40) m/uL Hgb (11.4-16.0) gm/dL Hct (34.0-46.0) % MCV (80.0-100.0) fL MCH (25.0-35.0) pg MCHC (31.0-37.0) g/dL RDW (11.5-15.5) % Plt Count (150-450) k/uL MPV Neutrophils % % Lymphocytes % % Monocytes % % Eosinophils % % Basophils % % Neutrophils # (1.3-7.7) k/uL Lymphocytes # (1.0-4.8) k/uL Monocytes # (0-1.0) k/uL Eosinophils # (0-0.7) k/uL Basophils # (0-0.2) k/uL Hypochromasia Anisocytosis PT (9.0-12.0) sec INR (<1.2) APTT (22.0-30.0) sec Sodium (137-145) mmol/L Potassium (3.5-5.1) mmol/L Chloride (98-107) mmol/L Carbon Dioxide (22-30) mmol/L Anion Gap mmol/L BUN (7-17) mg/dL Creatinine (0.52-1.04) mg/dL Est GFR (CKD-EPI)AfAm (>60 ml/min/1.73 sqM) Est GFR (CKD-EPI)NonAf (>60 ml/min/1.73 sqM) Glucose (74-99) mg/dL Plasma Lactic Acid Steve (0.7-2.0) mmol/L Calcium (8.4-10.2) mg/dL Magnesium (1.6-2.3) mg/dL Total Bilirubin (0.2-1.3) mg/dL AST (14-36) U/L ALT (4-34) U/L Alkaline Phosphatase (38-126) U/L Troponin I (0.000-0.034) ng/mL NT-Pro-B Natriuret Pep pg/mL Total Protein (6.3-8.2) g/dL Albumin (3.5-5.0) g/dL Urine Color Yellow Urine Appearance Clear (Clear) Urine pH 5.0 (5.0-8.0) Ur Specific [place] 1.013 (1.001-1.035) Urine Protein Negative (Negative) Urine Glucose (UA) Negative (Negative) Urine Ketones Negative (Negative) Urine Blood Negative (Negative) Urine Nitrite Negative (Negative) Urine Bilirubin Negative (Negative) Urine Urobilinogen <2.0 (<2.0) mg/dL Ur Leukocyte Esterase Negative (Negative) Stool Occult Blood Positive H (Negative) Blood Type AB Negative Blood Type Recheck AB Neg Bld Type Recheck Status No Antibody Screen NEGATIVE Crossmatch See Detail Spec Expiration Date 05/18/20202320 - EKG Data EKG Comments: Sinus bradycardia with first-degree AV block, otherwise normal ECG, no acute process. This is similar to previous EKG on 12/17/2019. Ventricular rate 58, CA interval 240, QTC 456. (Alina Raygoza) Critical Care Time Critical Care Time: Yes Total Critical Care Time: 40 (Acute anemia with hemoglobin of 5.8, INR is greater than 10. Patient was also hypotensive. Patient given vitamin K, 2 uni ts of blood, admitted to the ICU.) <Alina Raygoza - Last Filed: 05/15/20 13:21> Disposition <Bhavik Bone - Last Filed: 05/15/20 12:39> Decision Date: 05/15/20 Decision Time: 12:36 <Alina Raygoza - Last Filed: 05/15/20 13:21> Clinical Impression: Fall, Anemia, Elevated INR Disposition: ADMITTED IP TO THIS HOSP Condition: Fair Referrals: Edd Lee MD [Primary Care Provider] - 1-2 days
--- NOTE | 2020-05-15 10:42 | CT ---
EXAMINATION TYPE: CT brain cspine wo con DATE OF EXAM: 05/15/2020 COMPARISON: 12/17/2019 HISTORY: Fall, on blood thinners CT DLP: 2107.2 mGycm, Automated exposure control for dose reduction was used. CONTRAST: None CT of the brain is performed utilizing 3 mm thick sections through the posterior fossa and 3 mm thick sections through the remaining calvarium. Study is performed within 24 hours of arrival to the hospital. No abnormal hyperdensity is present to suggest an acute intracranial hemorrhage. No mass lesion is evident. No acute infarcts are evident. Ventricles and sulci are appropriate for the patient age. Paranasal sinuses within the [id number]-hiks are clear. Inferior right mastoid air cells contain fluid, correlate for mild mastoiditis. In the right left mastoid air cells appear clear. IMPRESSIONS: 1. Normal CT brain. 2. No suspicious changes suggest acute hemorrhage. 3. Mild right inferior mastoiditis CT cervical spine. COMPARISON: None CT of the cervical spine is performed in the axial plane at 2 mm thick sections. Reconstructed image s in the coronal, and sagittal plane are reviewed on the computer. No acute fractures are evident. Vertebral body alignment is normal. There is diffuse loss of disc height throughout the cervical spine. Vertebral body heights are preserved. No spinal canal stenosis is evident. Some uncovertebral joint hypertrophy at C5-6 is contributing to foraminal narrowing. IMPRESSIONS: 1. Mild degenerative changes including diffuse loss of disc height through the cervical spine. 2. Mild uncovertebral joint hypertrophy with foraminal narrowing C5-6.
--- NOTE | 2020-05-15 10:53 | XR ---
EXAMINATION TYPE: XR chest 1V DATE OF EXAM: 05/15/2020 COMPARISON: 12/17/2019 INDICATION: Weakness TECHNIQUE: Single frontal view of the chest is obtained. FINDINGS: The heart size is normal. The pulmonary vasculature is normal. The lungs are clear. Stimulator leads are in the lower thoracic region. There appears to be chronic degenerative changes at the left shoulder. Consider chronic rotator cuff tear. IMPRESSION: 1. No acute pulmonary process. 2. Chronic left rotator cuff tear.
--- NOTE | 2020-05-15 10:58 | XR ---
EXAMINATION TYPE: XR knee limited LT DATE OF EXAM: 05/15/2020 COMPARISON: 09/22/2019 HISTORY: Left knee pain, fall TECHNIQUE: 2 view left knee FINDINGS: There is narrowing of the left knee compartment. Lateral tibial plateau spurring is present . Milder narrowing of the medial compartment is present. Joint space narrowing appears progressive fr om the prior exam. No joint effusion is evident. Posterior superior patellar spurring is present. No acute fracture or dislocation is evident. Follow-up exams can be performed 7-10 days from acute tr auma for continued pain. IMPRESSION: 1. Progression of the moderate joint degenerative changes greatest in the lateral compartment. 2. No acute osseous abnormality.
--- NOTE | 2020-05-15 11:00 | XR ---
EXAMINATION TYPE: XR foot complete LT DATE OF EXAM: 05/15/2020 COMPARISON: 03/27/2019 HISTORY: Fall, pain TECHNIQUE: Three-view left foot FINDINGS: Degenerative type changes are at the tarsometatarsal junctions. Alignment appears preserved . There is degenerative change at the first metatarsophalangeal joint space. Hammertoes are present. Structures appear osteopenic. This can be correlated with bone density. No acute fractures or dislocations are evident. There is diffuse soft tissue swelling present. Follow -up exams can be performed 7-10 days from acute trauma for continued pain. IMPRESSION: 1. Degenerative changes discussed above. 2. No acute osseous abnormality.
--- NOTE | 2020-05-15 11:05 | XR ---
EXAMINATION TYPE: XR shoulder limited LT DATE OF EXAM: 05/15/2020 COMPARISON: 03/25/2020 HISTORY: Pain, fall, limited range of motion TECHNIQUE: Shoulder examined in 3 projections FINDINGS: The humeral head articulates with the glenoid. There is elevation of the humeral head in relation to the glenoid. Erosion of the distal clavicle and acromion appear to be present compatible with chronic rotator cuff tear. Acromioclavicular junction space appears preserved. Date acromion may be avulsed from the scapula. Correlate with location of the patient's pain. This is of uncertain age but is an interval finding from comparison. A follow up study can be performed 7-10 days from acute trauma for continued pain. IMPRESSION: 1. Suspected avulsion of the acromion from the scapula. 2. Chronic rotator cuff tear
[2020-05-15 11:26] LABS: Albumin 2.9 g/dL (3.5-5.0); Calcium 8.3 mg/dL (8.4-10.2); Magnesium 2.6 mg/dL (1.6-2.3); Potassium 5.1 mmol/L (3.5-5.1); Total Bilirubin 0.6 mg/dL (0.2-1.3); Total Protein 5.4 g/dL (6.3-8.2)
[2020-05-15 11:39] LABS: Anisocytosis Slight; Basophils % (A) 0 %; Eosinophils # (A) 0.1 k/uL (0-0.7); Eosinophils % (A) 2 %; Hypochromasia Moderate; Lymphocytes % (A) 12 %; MCHC 31.3 g/dL (31.0-37.0); MCV 86.3 fL (80.0-100.0); Mean Platelet Volume 7.8; Monocytes # (A) 0.7 k/uL (0-1.0); Monocytes % (A) 8 %; Neutrophils # (A) 6.3 k/uL (1.3-7.7); Neutrophils % (A) 76 %; Platelet Count 311 k/uL (150-450); RBC 2.13 m/uL (3.80-5.40); RDW 17.3 % (11.5-15.5); WBC 8.2 k/uL (3.8-10.6)
[2020-05-15 11:44] LABS: Prothrombin Time >130.0 sec (9.0-12.0)
[2020-05-15 11:45] LABS: INR >10.0 (<1.2)
[2020-05-15 11:46] LABS: Partial Thromboplastin Time 121.6 sec (22.0-30.0)
[2020-05-15 11:47] LABS: HCT 18.4 % (34.0-46.0); HGB 5.8 gm/dL (11.4-16.0)
[2020-05-15] MEDS ORDERED: PHYTONADIONE 10 MG in SODIUM CHLORIDE 0.9% 50 ML IVPB STA (12:20)
[2020-05-15] MEDS ORDERED: SODIUM CHLORIDE 0.9% 1,000 ML IV STA (12:30)
[2020-05-15] MEDS ORDERED: NALOXONE 0.4 MG/ML 1 ML VIAL IV PRN (12:31)
[2020-05-15 13:19] LABS: Appearance,Urine Clear (Clear); Bilirubin,Urine Negative (Negative); Blood,Urine Negative (Negative); Color,Urine Yellow; Glucose,Urine (UA) Negative (Negative); Ketones,Urine Negative (Negative); Leukocyte Esterase,Urine Negative (Negative); Nitrite,Urine Negative (Negative); Protein,Urine Negative (Negative); Specific Gravity,Urine 1.013 (1.001-1.035); Urobilinogen,Urine <2.0 mg/dL (<2.0)
[2020-05-15] MEDS ORDERED: fentaNYL (PF) 50 MCG/ML 2 ML AMP IVP STA (13:22)
[2020-05-15] MEDS ORDERED: NITROGLYCERIN SL TABS 0.4 MG TAB SUBLINGUAL PRN (14:17)
[2020-05-15 14:49] LABS: Glucose,Whole Blood 81 mg/dL (75-99)
--- NOTE | 2020-05-15 15:12 | P.HPIM ---
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 Chronic rotator cuff of the left shoulder and she planned to have surgery next month, Recurrent falls, pulmonary hypertension, she is on home oxygen of 3 L, hiatal hernia, at home she barely walks only for short distance. Today she was stand ing up from sitting position in her chair when she felt dizzy and fell to the ground, she did not pass out. She denies chest pain or dyspnea but she landed on her left side and she has pain in her left leg, left shoulder and also she had her head. Also patient reports bleeding last few days from her nose, urine, rectal ear and Carrie. But no such bleeding was noticed today. Epistaxis stopped On admission she is hypothermic with a temperature is 91.2, currently 92.9. Heart rate 61, breathing rate is 20, blood pressure 100/72 and it was 71/45 earlier. She is saturated 91 204 L of oxygen via nasal cannula Admission her hemoglobin is 5.8, and INR more than 10. Restoril CBC rest of CBC and BMP and liver enzymes are unremarkable. Creatinine is 1.1 at baseline or slightly above baseline of 0.6-0.9 Urine analysis is not suspicious of infection. Occult blood in stool is positive. Coronavirus not detected EKG shows sinus bradycardia at [address]-T changes and first-deg ree AV block. Chest x-ray: No acute process. Chronic left rotator cuff tear Shoulder x-ray showing suspected avulsion of the acromion from the scapula. Chronic left rotator cuff tear Left foot x-ray showing no acute process. Left knee x-ray: No acute process. Progression of the moderate joint degenerative changes CT of the brain: No acute process. CT of the cervical spine no fracture or disl ocation Jahaira mild narrowing of C5 to C6 In the emergency room she received fentanyl, Innis 7.5 mg, 10 mg of IV vitamin K, 1.5 L of normal saline Review of Systems CONSTITUTIONAL: No fever, no malaise, no fatigue. HEENT: No recent visual problems or hearing problems. Denied any sore throat. CARDIOVASCULAR: No orthopnea, PND, no palpitations, no syncope. PULMONARY: No shortness of breath, no cough, no hemoptysis. GASTROINTESTINAL: No diarrhea, no nausea, no vomiting, no abdominal pain. Normoactive bowel sounds. NEUROLOGICAL: No headaches, no weakness, no numbness. -HEMATOLOGICAL: Has bleeding as above. GENITOURINARY: Denies any burning micturition, frequency, or urgency. MUSCULOSKELETAL/RHEUMATOLOGICAL: Denies any joint pain, swelling, or any muscle pain. ENDOCRINE: Denies any polyuria or polydipsia. Past Medical History Past Medical History: Asthma, Coronary Artery Disease (CAD), Chest Pain / Angina, Heart Failure, COPD, CVA/TIA, Deep Vein Thrombosis (DVT), Fibromyalgia, GERD/Reflux, GI Bleed, Hearing Disorder / Deafness, Hyperlipidemia, Hypertension, Memory Impairment, Myocardial Infarction (OK), Osteoarthritis (OA), Pneumonia, Pulmonary Embolus (PE), Respiratory Disorder, Seizure Disorder, Skin Disorder, Sleep Apnea/CPAP/BIPAP, Thyroid Disorder Additional Past Medical History / Comment(s): 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 Last Myocardial Infarction Date:: 2002 History of Any Multi-Drug Resistant Organisms: None Reported Past Surgical History: Bariatric Surgery, Hernia Repair, Hysterectomy, Orthopedic Surgery, Tubal Ligation Additional Past Surgical History / Comment(s): 10/19/19 PCI with stent, EGDs, colonoscopy/benign polyps, gastric bypass with revision, ventral and hiatal hernia repair, bladder suspension, R rotator curr repair/revision, L knee arthroscopy, rectocele, perinealplasty, Past Anesthesia/Blood Transfusion Reactions: Motion Sickness Past Psychological History: Anxiety, Depression Smoking Status: Never smoker Past Alcohol Use History: Rare Past Drug Use History: None Reported - Past Family History Mother Family Medical History: Coronary Artery Disease (CAD), Eye Disorder Additional Family Medical History / Comment(s): Mother is 91 yrs old Father Family Medical History: Myocardial Infarction (OK) Additional Family Medical History / Comment(s): Father of a massive OK at the age of 53 yrs. Sister(s) Family Medical History: Cancer Medications and Allergies Home Medications Medication Instructions Recorded Confirmed Type Levothyroxine Sodium [Synthroid] 88 mcg PO DAILY 08/09/13 05/15/20 History Vortioxetine Hydrobromide 10 mg PO DAILY 11/04/15 05/15/20 History [Trintellix] rOPINIRole HCL [Requip] 6 mg PO HS@2100 11/09/17 05/15/20 History Esomeprazole Magnesium 40 mg PO DAILY 10/18/19 05/15/20 History Hydrocodone/Acetaminophen [Innis 1 tab PO QID 10/18/19 05/15/20 History 7.5-325] Atorvastatin [Lipitor] 40 mg PO HS #30 tab 10/20/19 05/15/20 Rx Nitroglycerin Sl Tabs [Nitrostat] 0.4 mg SUBLINGUAL Q5M PRN #30 tab 10/20/19 05/15/20 Rx Warfarin [Coumadin] 10 mg PO DAILY@1800 #10 tab 12/02/19 05/15/20 Rx Ipratropium-Albuterol Nebulize 3 ml INHALATION RT-QID PRN 12/17/19 05/15/20 His tory [Duoneb 0.5 mg-3 mg/3 ml Soln] Metoprolol Succinate (ER) [Toprol 25 mg PO DAILY 12/17/19 05/15/20 History XL] Potassium Chloride ER [K-Dur 20] 40 meq PO QID 12/17/19 05/15/20 History Topiramate [Topamax] 50 mg PO HS #1 tab 12/19/19 05/15/20 Rx Amitriptyline HCl [Elavil] 75 mg PO HS 05/15/20 05/15/20 History Bumetanide [BUMEX] 1 mg PO BID 05/15/20 05/15/20 History Cariprazine HCl [Vraylar] 1.5 mg PO DAILY 05/15/20 05/15/20 History Diclofenac Potassium [Cataflam] 50 mg PO BID 05/15/20 05/15/20 History Ergocalciferol [Vitamin D2 (1250 1,250 mcg PO RALPH 05/15/20 05/15/20 History Mcg = [id number] Iu)] Furosemide [Lasix] 40 mg PO BID 05/15/20 05/15/20 History Losartan [Cozaar] 25 mg PO DAILY 05/15/20 05/15/20 History rOPINIRole HCL [Requip] 2 mg PO QAM 05/15/20 05/15/20 History Allergies Allergy/AdvReac Type Severity Reaction Status Date / Time cefprozil [From Cefzil] Allergy Unknown Verified 05/15/20 12:24 Sulfa (Sulfonamide Allergy Rash/Hives Verified 05/15/20 12:24 Antibiotics) valdecoxib [From Bextra] Allergy Unknown Verified 05/15/20 12:24 codeine AdvReac DIFFICULTY Verified 05/15/20 12:24 URINATING metaxalone [From Skelaxin] AdvReac Nausea & Verified 05/15/20 12:24 Vomiting Physical Exam Vitals: Vital Signs Temp Pulse Resp BP Pulse Ox 05/15/20 14:04 92.9 F L 61 20 100/72 100 05/15/20 13:55 92.8 F L 55 L 20 79/54 100 05/15/20 13:48 92.7 F L 60 16 81/39 91 L 05/15/20 13:38 91.2 F L 60 17 71/45 94 L 05/15/20 13:30 91.2 F L 68 20 107/64 91 L 05/15/20 12:45 60 22 110/70 92 L 05/15/20 12:31 71 22 93/70 95 05/15/20 12:15 67 20 78/52 89 L 05/15/20 12:00 66 20 89/60 90 L 05/15/20 11:00 62 20 99/65 99 05/15/20 09:03 97.9 F 68 18 105/81 100 Intake and Output 05/14/20 05/15/20 05/15/20 22:59 06:59 14:59 Intake Total 0 Output Total 500 Balance -500 Intake: Blood Product 0 Rc As-1 Unit 0 [id number] Output: Urine 500 Other: Weight 142.02 kg -GENERAL: The patient is alert and oriented x3, not in any acute distress. Morbid obesity HEENT: Pupils are round and equally reacting to light. EOMI. No scleral icterus. No conjunctival pallor. Normocephalic, atraumatic. No pharyngeal erythema. No thyromegaly. CARDIOVASCULAR: S1 and S2 present. No murmurs, rubs, or gallops. PULMONARY: Chest is clear to auscultation, no wheezing or crackles. ABDOMEN: Soft, nontender, nondistended, normoactive bowel sounds. No palpable organomegaly. MUSCULOSKELETAL: No joint swelling or deformity. EXTREMITIES: No cyanosis, clubbing, or pedal edema. NEUROLOGICAL: Gross neurological examination did not reveal any focal deficits. SKIN: No rashes. No petechiae Results CBC & Chem 7: 05/15/20 11:00 05/15/20 11:00 Labs: Abnormal Lab Results - Last 24 Hours (Table) 05/15/20 05/15/20 05/15/20 Range/Units 11:00 11:00 11:00 RBC 2.13 L (3.80-5.40) m/uL Hgb 5.8 L* (11.4-16.0) gm/dL Hct 18.4 L* (34.0-46.0) % RDW 17.3 H (11.5-15.5) % PT >130.0 H (9.0-12.0) sec INR >10.0 H* (<1.2) APTT 121.6 H* (22.0-30.0) sec Sodium 131 L (137-145) mmol/L BUN 59 H (7-17) mg/dL Creatinine 1.11 H (0.52-1.04) mg/dL Calcium 8.3 L (8.4-10.2) mg/dL Magnesium 2.6 H (1.6-2.3) mg/dL AST 45 H (14-36) U/L Total Protein 5.4 L (6.3-8.2) g/dL Albumin 2.9 L (3.5-5.0) g/dL Stool Occult Blood (Negative) Crossmatch 05/15/20 05/15/20 Range/Units : 12:21 RBC (3.80-5.40) m/uL Hgb (11.4-16.0) gm/dL Hct (34.0-46.0) % RDW (11.5-15.5) % PT (9.0-12.0) sec INR (<1.2) APTT (22.0-30.0) sec Sodium (137-145) mmol/L BUN (7-17) mg/dL Creatinine (0.52-1.04) mg/dL Calcium (8.4-10.2) mg/dL Magnesium (1.6-2.3) mg/dL AST (14-36) U/L Total Protein (6.3-8.2) g/dL Albumin (3.5-5.0) g/dL Stool Occult Blood Positive H (Negative) Crossmatch See Detail Assessment and Plan Assessment: Acute GI bleed Coagulopathy secondary to high INR and coumadin Acute blood loss anemia Hypotension and hypothermia secondary to above Acute and chronic hypoxic respiratory failure Chronic left rotator cuff tear with possible avulsion of the acromion from the scapula. Patient is planned to have surgery for her left shoulder next month History of deep venous thrombosis and pulmonary embolism on Coumadin History of CVA with right-sided hemiparesis and speech and difficulty COPD with chronic hypoxic respiratory failure is related to her oxygen via nasal cannula History of coronary artery disease Congestive heart failure, chronic. Fibromyalgia History of GERD History of GI bleed Hearing difficulty Hypertension Hyperlipidemia Memory impairment Osteoarthritis History of seizure disorder Sleep apnea on CPAP/BiPAP Hypothyroidism Morbid obesity with BMI of 57 Plan: His is a pleasant 65 years old female who presents because of acute GI bleeding cannula. Blood transfusion to keep hemoglobin above 7. GI consult. Hold Co umadin. Start Protonix. Patient will be monitored closely in the ICU with pulmonary/critical care team consult hold Bumex and Lasix, losartan, metoprolol Labs and medication were reviewed.. Continue same treatment. Continue with symptomatic treatment. Resume home medication. Monitor lytes and vitals. DVT and GI prophylaxis. Further recommendations depends on the clinical course of the patient DVT prophylaxis: No anticoagulation for coagulopathyin GI Prophylaxis: Ppi Prognosis is guarded
[2020-05-15] MEDS ORDERED: SODIUM CHLORIDE 0.9% 1,000 ML IV ONE ×2 (15:45→16:38)
--- NOTE | 2020-05-15 16:55 | P.CNPUL ---
History of Present Illness Consult date: 05/15/20 Chief complaint: Generalized weakness, fall, anemia History of present illness: 65-year-old female patient who presented to the emergency department with generalized weakness, lightheadedness, and feeling weak and she apparently fell at home on her left side. She was complaining of left-sided shoulder pain, knee pain and foot pain. She also stated that she did have some trauma to her head. She did not lose consciousness. Note that the patient is on anticoagulation and her Coumadin level was toxic and hemoglobin came back at 5.8. She was having episodes of epistaxis and she also noted for some rectal bleeding which she was having some bloody stool. No nausea. No vomiting. No hematemesis. She was having worsening shortness of breath. In the emergency department, her initial vitals were stable. Subsequent she started getting hypotensive. She was given a total of 2 liters of IV fluid. She was given vitamin K 10 mg and I also asked the emergency physician to give the patient fresh frozen plasma regarding her Coumadin toxicity. Packed RBC dysphagia was also ordered and the patient has received 2 units of packed RBC. Subsequent hemoglobin levels are not available yet. Had a white cell count is at 8.2 and admitting hemoglobin was 5.8 with a previous count of 311. The patient has a BUN of 59 with a creatinine of 1.1 and atelectatic as level was at 0.9. Troponin was negative and proBNP level was 266, UA is negative and occult stool was positive and the Covid 19 testing was also negative. Chest x-ray showed no acute abnormalities The patient is known to have COPD and she is oxygen dependent at 3 L per minute nasal cannula. She is morbidly obese and she has undergone previous bariatric surgery with a Alex-en-Y gastric bypass She also has multiple comorbidities including previous history of CVA with right-sided weakness, previous history of TIA and falls, chronic hypoxemic respiratory failure, central sleep apnea and she does not utilize any form of respiratory CPAP machine or treatment. She has previous history of broken heart syndrome/takasubo syndrome back in October 2019, she has a previous history of DVT of the lower extremities and pulmonary embolism, she has previous history of gastric ulcer and upper and lower GI bleeds in addition to IBS, benign colonic polyps and history of chronic anemia requiring iron transfusions/infusions. The patient also has chronic back pain, osteoporosis, occipital neuralgia, migraines, or less, hypothyroidism, candidal skin infection, coronary artery disease. The patient has been on anticoagulation on long-term basis on warfarin and she takes 10 mg on a daily basis. Review of Systems CONSTITUTIONAL: No fever, there is increased weakness and increased fatigue and tiredness and the patient has had falls HEENT: No recent visual problems or hearing problems. Denied any sore throat. CARDIOVASCULAR: No orthopnea, PND, no palpitations, no syncope. PULMONARY: no cough, no hemoptysis. She is endorsing exertional dyspnea. GASTROINTESTINAL: No diarrhea, no nausea, no vomiting, no abdominal pain. NEUROLOGICAL: No headaches, no weakness, no numbness. The patient has a high risk of fall and the patient has had previous CVA she does have scoliosis HEMATOLOGICAL: Denies any bleeding or petechiae. GENITOURINARY: Denies any burning micturition, frequency, or urgency. She does have leakage of urine MUSCULOSKELETAL/RHEUMATOLOGICAL: Denies any joint pain, swelling, or any muscle pain. ENDOCRINE: Denies any polyuria or polydipsia. Psychiatrically the patient has chronic anxiety and depression The rest of the 14-point review of systems is negative. Past Medical History Past Medical History: Asthma, Coronary Artery Disease (CAD), Chest Pain / Angina, Heart Failure, COPD, CVA/TIA, Deep Vein Thrombosis (DVT), Fibromyalgia, GERD/Reflux, GI Bleed, Hearing Disorder / Deafness, Hyperlipidemia, Hypertension, Memory Impairment, Myocardial Infarction (UT), Osteoarthritis (OA), Pneumonia, Pulmonary Embolus (PE), Respiratory Disorder, Seizure Disorder, Skin Disorder, Sleep Apnea/CPAP/BIPAP, Thyroid Disorder Additional Past Medical History / Comment(s): 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 Alex-en-Y gastric bypass for morbid obesity Last Myocardial Infarction Date:: 2002 History of Any Multi-Drug Resistant Organisms: None Reported Past Surgical History: Bariatric Surgery, Hernia Repair, Hysterectomy, Orthopedic Surgery, Tubal Ligation Additional Past Surgical History / Comment(s): 10/19/19 PCI with stent, EGDs, colonoscopy/benign polyps, gastric bypass with revision, ventral and hiatal hernia repair, bladder suspension, R rotator curr repair/revision, L knee arthroscopy, rectocele, perinealplasty, Past Anesthesia/Blood Transfusion Reactions: Motion Sickness Past Psychological History: Anxiety, Depression Smoking Status: Never smoker Past Alcohol Use History: Rare Past Drug Use History: None Reported - Past Family History Mother Family Medical History: Coronary Artery Disease (CAD), Eye Disorder Additional Family Medical History / Comment(s): Mother is 91 yrs old Father Family Medical History: Myocardial Infarction (UT) Additional Family Medical History / Comment(s): Father of a massive UT at the age of 53 yrs. Sister(s) Family Medical History: Cancer Medications and Allergies Home Medications Medication Instructions Recorded Confirmed Type Levothyroxine Sodium [Synthroid] 88 mcg PO DAILY 08/09/13 05/15/20 History Vortioxetine Hydrobromide 10 mg PO DAILY 11/04/15 05/15/20 History [Trintellix] rOPINIRole HCL [Requip] 6 mg PO HS@2100 11/09/17 05/15/20 History Esomeprazole Magnesium 40 mg PO DAILY 10/18/19 05/15/20 History Hydrocodone/Acetaminophen [Stratton 1 tab PO QID 10/18/19 05/15/20 History 7.5-325] Atorvastatin [Lipitor] 40 mg PO HS #30 tab 10/20/19 05/15/20 Rx Nitroglycerin Sl Tabs [Nitrostat] 0.4 mg SUBLINGUAL Q5M PRN #30 tab 10/20/19 05/15/20 Rx Warfarin [Coumadin] 10 mg PO DAILY@1800 #10 tab 12/02/19 05/15/20 Rx Ipratropium-Albuterol Nebulize 3 ml INHALATION RT-QID PRN 12/17/19 05/15/20 History [Duoneb 0.5 mg-3 mg/3 ml Soln] Metoprolol Succinate (ER) [Toprol 25 mg PO DAILY 12/17/19 05/15/20 History XL] Potassium Chloride ER [K-Dur 20] 40 meq PO QID 12/17/19 05/15/20 History Topiramate [Topamax] 50 mg PO HS #1 tab 12/19/19 05/15/20 Rx Amitriptyline HCl [Elavil] 75 mg PO HS 05/15/20 05/15/20 History Bumetanide [BUMEX] 1 mg PO BID 05/15/20 05/15/20 History Cariprazine HCl [Vraylar] 1.5 mg PO DAILY 05/15/20 05/15/20 History Diclofenac Potassium [Cataflam] 50 mg PO BID 05/15/20 05/15/20 History Ergocalciferol [Vitamin D2 (1250 1,250 mcg PO RALPH 05/15/20 05/15/20 History Mcg = 00532 Iu)] Furosemide [Lasix] 40 mg PO BID 05/15/20 05/15/20 History Losartan [Cozaar] 25 mg PO DAILY 05/15/20 05/15/20 History rOPINIRole HCL [Requip] 2 mg PO QAM 05/15/20 05/15/20 History Allergies Allergy/AdvReac Type Severity Reaction Status Date / Time cefprozil [From Cefzil] Allergy Unknown Verified 05/15/20 12:24 Sulfa (Sulfonamide Allergy Rash/Hives Verified 05/15/20 12:24 Antibiotics) valdecoxib [From Bextra] Allergy Unknown Verified 05/15/20 12:24 codeine AdvReac DIFFICULTY Verified 05/15/20 12:24 URINATING metaxalone [From Skelaxin] AdvReac Nausea & Verified 05/15/20 12:24 Vomiting Physical Exam Vitals: Vital Signs Temp Pulse Pulse Resp BP BP Pulse Ox 05/15/20 16:00 93.7 F L 68 69 10 L 98/50 98/50 97 05/15/20 15:30 93.0 F L 67 67 16 80/46 98 05/15/20 15:17 92.8 F L 56 L 15 77/37 97 05/15/20 15:16 92.7 F L 57 L 14 80/15 99 05/15/20 15:15 92.3 F L 65 15 77/37 97 05/15/20 15:00 92.1 F L 63 15 80/51 98 02/12/21 14:44 14 99 05/15/20 14:35 93.2 F L 60 18 92/55 98 05/15/20 14:18 93.0 F L 58 L 20 97/48 98 05/15/20 14:04 92.9 F L 61 20 100/72 100 05/15/20 13:55 92.8 F L 55 L 20 79/54 100 05/15/20 13:48 92.7 F L 60 16 81/39 91 L 05/15/20 13:38 91.2 F L 60 17 71/45 94 L 05/15/20 13:30 91.2 F L 68 20 107/64 91 L 05/15/20 13:22 80/51 98 05/15/20 12:45 60 22 110/70 92 L 05/15/20 12:31 71 22 93/70 95 05/15/20 12:15 67 20 78/52 89 L 05/15/20 12:00 66 20 89/60 90 L 05/15/20 11:00 62 20 99/65 99 05/15/20 10:00 15 99 05/15/20 09:08 18 95 05/15/20 09:03 97.9 F 68 18 105/81 100 Intake and Output 05/15/20 05/15/20 05/15/20 06:59 14:59 22:59 Intake Total 0 1310 Output Total 600 275 Balance -600 1035 Intake: Intake, IV Titration 1000 Amount Sodium Chloride 0.9% 1, 1000 000 ml @ 999 mls/hr IV . Q1H1M STA Rx#:[id number] Blood Product 0 310 Rc As-1 Unit 0 310 [id number] Rc As-1 Unit 0 [id number] Output: Urine 600 275 Other: Weight 142.02 kg GENERAL: The patient is alert and oriented x3, not in any acute distress. Obese, she has a body mass index of 57.3 Head exam was generally normal. There was no scleral icterus or corneal arcus. Mucous membranes were moist. Neck was supple and without jugular venous distension, thyromegaly, or carotid bruits. Carotids were easily palpable bilaterally. There was no adenopathy. Mallampati class IV CARDIOVASCULAR: S1 and S2 present. No murmurs, rubs, or gallops. PULMONARY: Chest is clear to auscultation, no wheezing or crackles. ABDOMEN: Soft, nontender, nondistended, normoactive bowel sounds. No palpable organomegaly. MUSCULOSKELETAL: No joint swelling or deformity. EXTREMITIES: No cyanosis, clubbing, or pedal edema. NEUROLOGICAL: Gross neurological examination did not reveal any focal deficits. Examination of the skin revealed no evidence of significant rashes, suspicious a ppearing nevi or other concerning lesions. Results - Laboratory Findings CBC and BMP: 05/15/20 11:00 05/15/20 11:00 PT/INR, D-dimer PT >130.0 sec (9.0-12.0) H 05/15/20 11:00 INR >10.0 (<1.2) H* 05/15/20 11:00 Abnormal lab findings: Abnormal Labs 05/15/20 05/15/20 05/15/20 11:00 11:00 11:00 RBC 2.13 L Hgb 5.8 L* Hct 18.4 L* RDW 17.3 H PT >130.0 H INR >10.0 H* APTT 121.6 H* Sodium 131 L BUN 59 H Creatinine 1.11 H Calcium 8.3 L Magnesium 2.6 H AST 45 H Total Protein 5.4 L Albumin 2.9 L Stool Occult Blood Crossmatch 05/15/20 05/15/20 12: 12:21 RBC Hgb Hct RDW PT INR APTT Sodium BUN Creatinine Calcium Magnesium AST Total Protein Albumin Stool Occult Blood Positive H Crossmatch See Detail - Diagnostic Findings Chest x-ray: image reviewed Assessment and Plan Plan: 1 acute on chronic anemia with several sources of bleeding including epistaxis and possibly some GI bleeding. Consider upper GI bleeding this patient. The patient has history of peptic ulcer disease and she has a previous bouts of GI bleeding. Hemoglobin was at 5.8 and the patient was given a total of 2 units of packed RBC. The patient was Coumadin toxic which probably exacerbated her GI bleeding. The patient arrived to the ICU and she was somewhat hypotensive and this was noted also the MRSA problem. The patient is currently being assisted IV fluids. Another bolus is being given in the ICU. 2 Coumadin toxicity and INR was above 10 and the patient has been on long-term medical condition because previous history of pulmonary emboli 3 morbid obesity with BMI 57.3, post-bariatric surgery with a Alex-en-Y gastric bypass many years back 4 obstructive sleep apnea not utilizing any form of CPAP machine 5 history of coronary artery disease 6 history of CVA with some residual right-sided weakness involving the right arm and right leg in addition to speech deficits and the patient is considered to be at an increased risk of falls 7 previous history of DVT and pulmonary embolism maintained on long-term medical condition with warfarin 7 hypothyroidism 8 COPD with chronic hypoxic respiratory failure maintained on oxygen at 3 L per minute nasal cannula 9 history of broken heart syndrome/takasubo syndrome back in October 2019 10 history of gastric ulcer/hiatal hernia/IBS/benign colonic polyps 11 chronic low back pain along with scoliosis and also process and chronic myofascial pain 12 history of occipital neuralgia 13 migraines 14 restless leg syndrome 15 hypothyroidism 16 history of seizure disorder 17 fall with x-rays of the knee foot and shoulder showing no evidence of any fracture. In addition the CAT scan of the head and cervical spine showed no acute abnormalities. She did have some mild degenerative changes of the cervical spine condition to foraminal narrowing at the level of C5-C6. Plan Complete a total of 2 units of packed RBC transfusion and repeat hemoglobin. Give the patient is a fresh frozen plasma. 10 mg of vitamin K was given. We will going to repeat the PT/INR and decide if there is further need for treatment of underlying coagulopathy. watch for any signs of GI bleed IV Protonix 40 mg every 12 hours GI consultation regarding GI bleed Monitor hemodynamics and blood pressure and utilized pressors if needed Hold Coumadin for now Keep the patient nothing by mouth for now except for her medication and the patient will be offered to her seizure medication in addition to her Requip and Synthroid and her Lipitor. Warfarin will obviously be on hold in addition to her blood pressure medication and diuretics will be also on hold. Compression devices to lower extremities
[2020-05-15] MEDS: PANTOPRAZOLE 40 MG/10 ML VIAL IVP SCH ×2 (17:22→21:19)
[2020-05-15] MEDS: ATORVASTATIN 40 MG TAB PO SCH (21:16)
[2020-05-15] MEDS: AMITRIPTYLINE HCL 25 MG TAB PO SCH (21:16)
[2020-05-15] MEDS: TOPIRAMATE 25 MG TAB PO SCH (21:17)
[2020-05-15 21:18] LABS: INR 1.3 (<1.2); Partial Thromboplastin Time 29.1 sec (22.0-30.0); Prothrombin Time 13.1 sec (9.0-12.0)
[2020-05-15] MEDS: rOPINIRole HCL 4 MG TABLET PO SCH (21:18)
[2020-05-15 21:25] LABS: Anisocytosis Slight; Hypochromasia Slight; MCH 27.8 pg (25.0-35.0); MCHC 32.2 g/dL (31.0-37.0); MCV 86.3 fL (80.0-100.0); Mean Platelet Volume 7.6; Platelet Count 226 k/uL (150-450); RBC 2.08 m/uL (3.80-5.40); RDW 16.4 % (11.5-15.5)
[2020-05-15 21:28] LABS: HCT 17.9 % (34.0-46.0); HGB 5.8 gm/dL (11.4-16.0)
[2020-05-15] MEDS: HYDROcodone/APAP 7.5-325MG 1 EACH TAB PO PRN (21:29)
[2020-05-15 22:42] LABS: % Iron Saturation 18.6 (12.00-45.00)
[2020-05-15] MEDS: HYDROmorphone 0.5 MG/0.5 ML SYRINGE IVP PRN (23:30)
[2020-05-16] MEDS: HYDROcodone/APAP 7.5-325MG 1 EACH TAB PO PRN ×3 (05:03→23:12)
[2020-05-16] MEDS: LEVOTHYROXINE 88 MCG TAB PO SCH (05:04)
--- NOTE | 2020-05-16 07:56 | XR ---
EXAMINATION TYPE: XR chest 1V portable DATE OF EXAM: 05/16/2020 Comparison: 05/15/2020 Clinical History: 65-year-old female shortness of breath, difficulty in breathing Findings: Spinal stimulator ray centered along the mid thoracic spinal canal. Heart upper limits of normal in s ize. Diffuse interstitial opacities persist. Slightly more confluent at the left mid lung and right b ase now. Impression: Interstitial opacities persist. These have become slightly more confluent at the left midlung and rig ht base now. Correlate to exclude early developing pneumonia or CHF.
[2020-05-16 07:58] LABS: African American GFR (CKD) >90 (>60 ml/min/1.73 sqM); Anion Gap 7 mmol/L; Blood Urea Nitrogen 39 mg/dL (7-17); Calcium 8.1 mg/dL (8.4-10.2); Carbon Dioxide 21 mmol/L (22-30); Chloride 109 mmol/L (98-107); Glucose 82 mg/dL (74-99); Non-African American GFR(CKD) >90 (>60 ml/min/1.73 sqM); Potassium 4.5 mmol/L (3.5-5.1); Sodium 137 mmol/L (137-145)
[2020-05-16 08:09] LABS: Anisocytosis Slight; HCT 23.2 % (34.0-46.0); Hypochromasia Moderate; MCH 27.6 pg (25.0-35.0); MCHC 31.8 g/dL (31.0-37.0); MCV 86.8 fL (80.0-100.0); Mean Platelet Volume 7.3; Platelet Count 232 k/uL (150-450); Poikilocytosis Slight; RBC 2.68 m/uL (3.80-5.40)
[2020-05-16 08:13] LABS: HGB 7.4 gm/dL (11.4-16.0)
[2020-05-16] MEDS: VORTIOXETINE HYDROBROMIDE 10 MG TABLET PO SCH (08:46)
[2020-05-16] MEDS: PANTOPRAZOLE 40 MG/10 ML VIAL IVP SCH ×2 (08:46→20:42)
[2020-05-16 09:31] LABS: Band Neutrophils % 1 %; Eosinophils # (M) 0.05 k/uL (0-0.7); Myelocytes % 2 %; Neutrophils % (M) 65 %; Nucleated Red Blood Cells 1 /100 WBC (0-0); Total Cells Counted 200
[2020-05-16 09:32] LABS: Monocytes # (M) 0.52 k/uL (0-1.0); WBC 5.2 k/uL (3.8-10.6)
--- NOTE | 2020-05-16 10:53 | P.PN ---
Subjective Progress Note Date: 05/16/20 65-year-old female patient who presented to the emergency department with generalized weakness, lightheadedness, and feeling weak and she apparently fell at home on her left side. She was complaining of left-sided shoulder pain, knee pain and foot pain. She also stated that she did have some trauma to her head. She did not lose consciousness. Note that the patient is on anticoagulation and her Coumadin level was toxic and hemoglobin came back at 5.8. She was having episodes of epistaxis and she also noted for some rectal bleeding which she was having some bloody stool. No nausea. No vomiting. No hematemesis. She was having worsening shortness of breath. In the emergency department, her initial vitals were stable. Subsequent she started getting hypotensive. She was given a total of 2 liters of IV fluid. She was given vitamin K 10 mg and I also asked the emergency physician to give the patient fresh frozen plasma regarding her Coumadin toxicity. Packed RBC dysphagia was also ordered and the patient has received 2 units of packed RBC. Subsequent hemoglobin levels are not margie ilable yet. Had a white cell count is at 8.2 and admitting hemoglobin was 5.8 with a previous count of 311. The patient has a BUN of 59 with a creatinine of 1.1 and atelectatic as level was at 0.9. Troponin was negative and proBNP level was 266, UA is negative and occult stool was positive and the Covid 19 testing was also negative. Chest x-ray showed no acute abnormalities The patient is known to have COPD and she is oxygen dependent at 3 L per minute nasal cannula. She is morbidly obese and she has undergone previous bariatric surgery with a Alex-en-Y gastric bypass She also has multiple comorbidities including previous history of CVA with right-sided weakness, previous history of TIA and falls, chronic hypoxemic respiratory failure, central sleep apnea and she does not utilize any form of respiratory CPAP machine or treatment. She has previous history of broken heart syndrome/takasubo syndrome back in October 2019, she has a previous history of DVT of the lower extremities and pulmonary embolism, she has previous history of gastric ulcer and upper and lower GI bleeds in addition to IBS, benign colonic polyps and history of chronic anemia requiring iron transfusions/infusions. The patient also has chronic back pain, osteoporosis, occipital neuralgia, migraines, or less, hypothyroidism, candidal skin infection, coronary artery disease. The patient has been on anticoagula tion on long-term basis on warfarin and she takes 10 mg on a daily basis. On today's evaluation of 05/16/2020, I'm seeing the patient for a follow-up in the intensive care unit. The patient was hospitalized for GI bleed. The patient received initially a total of 2 units of packed RBC in addition to fresh frozen plasma and vitamin K for an underlying coagulopathy. Repeat hemoglobin was still low and based on that the patient was given another 2 unit of packed RBC making it a total of 4 units the follow-up hemoglobin today is at 7.4. Her INR today is at 1.3. No further bouts of bleeding has been encountered here in the intensive care unit. She received external warming. She still having some episodic epistaxis which is controlled for now. She is on 99% saturation on 2 L about 2 by nasal cannula. The patient was seen by gastroenterology. EGD is planned for Monday. Meanwhile, she is off warfarin for now. She is awake and alert. His other complaints otherwise for now. She is hemodynamically stable and she is receiving IV fluids in the form of normal saline at the rate of 50 mL an hour. She has adequate urine output. No pressors have been utilized. Objective - Vital Signs Vital signs: Vital Signs Temp 98.2 F 05/16/20 08:00 Pulse 68 05/16/20 08:00 Resp 9 L 05/16/20 08:00 BP 117/68 05/16/20 08:00 Pulse Ox 100 05/16/20 08:00 Intake & Output 05/15/20 05/16/20 05/16/20 18:59 06:59 18:59 Intake Total 2818 1460 200 Output Total 1255 1245 500 Balance 1563 215 -300 Weight 142.02 kg 146 kg Intake: IV 550 200 0.9 kvo 550 200 Intake, IV Titration 2000 Amount Sodium Chloride 0.9% 1, 2000 000 ml @ 999 mls/hr IV . Q1H1M STA Rx#:[id number] Blood Product 818 910 Ffp 24 Cpd Unit 0 300 [id number] Ffp 24 Pher Acda Unit 198 [id number] Rc As-1 Unit 300 [id number] Rc As-1 Unit 310 [id number] Rc As-1 Unit 310 [id number] As-1 Unit 310 [id number] Output: Urine 1255 1245 500 Other: Voiding Method Indwelling Catheter Indwelling Catheter - Exam -GENERAL: The patient is alert and oriented x3, not in any acute distress. Morbid obesity HEENT: Pupils are round and equally reacting to light. EOMI. No scleral icterus. No conjunctival pallor. Normocephalic, atraumatic. No pharyngeal erythema. No thyromegaly. CARDIOVASCULAR: S1 and S2 present. No murmurs, rubs, or gallops. PULMONARY: Chest is clear to auscultation, no wheezing or crackles. ABDOMEN: Soft, nontender, nondistended, normoactive bowel sounds. No palpable organomegaly. MUSCULOSKELETAL: No joint swelling or deformity. EXTREMITIES: No cyanosis, clubbing, or pedal edema. NEUROLOGICAL: Gross neurological examination did not reveal any focal deficits. SKIN: No rashes. No petechiae - Labs CBC & Chem 7: 05/16/20 07:27 05/16/20 07:27 Labs: Abnormal Lab Results - Last 24 Hours (Table) 05/15/20 05/15/20 05/15/20 Range/Units 11:00 11:00 11:00 RBC 2.13 L (3.80-5.40) m/uL Hgb 5.8 L* (11.4-16.0) gm/dL Hct 18.4 L* (34.0-46.0) % RDW 17.3 H (11.5-15.5) % Myelocytes # (Manual) (0) k/uL Nucleated RBCs (0-0) /100 WBC PT >130.0 H (9.0-12.0) sec INR >10.0 H* (<1.2) APTT 121.6 H* (22.0-30.0) sec Sodium 131 L (137-145) mmol/L Chloride (98-107) mmol/L Carbon Dioxide (22-30) mmol/L BUN 59 H (7-17) mg/dL Creatinine 1.11 H (0.52-1.04) mg/dL Calcium 8.3 L (8.4-10.2) mg/dL Magnesium 2.6 H (1.6-2.3) mg/dL AST 45 H (14-36) U/L Total Protein 5.4 L (6.3-8.2) g/dL Albumin 2.9 L (3.5-5.0) g/dL Stool Occult Blood (Negative) Crossmatch 05/15/20 05/15/20 05/15/20 Range/Units 12:21 12:21 20:55 RBC 2.08 L (3.80-5.40) m/uL Hgb 5.8 L* (11.4-16.0) gm/dL Hct 17.9 L* (34.0-46.0) % RDW 16.4 H (11.5-15.5) % Myelocytes # (Manual) (0) k/uL Nucleated RBCs (0-0) /100 WBC PT (9.0-12.0) sec INR (<1.2) APTT (22.0-30.0) sec Sodium (137-145) mmol/L Chloride (98-107) mmol/L Carbon Dioxide (22-30) mmol/L BUN (7-17) mg/dL Creatinine (0.52-1.04) mg/dL Calcium (8.4-10.2) mg/dL Magnesium (1.6-2.3) mg/dL AST (14-36) U/L Total Protein (6.3-8.2) g/dL Albumin (3.5-5.0) g/dL Stool Occult Blood Positive H (Negative) Crossmatch See Detail 05/15/20 05/16/20 05/16/20 Range/Units 20:55 07:27 07:27 RBC 2.68 L (3.80-5.40) m/uL Hgb 7.4 L D (11.4-16.0) gm/dL Hct 23.2 L (34.0-46.0) % RDW 17.0 H (11.5-15.5) % Myelocytes # (Manual) 0.10 H (0) k/uL Nucleated RBCs 1 H (0-0) /100 WBC PT 13.1 H (9.0-12.0) sec INR 1.3 H (<1.2) APTT (22.0-30.0) sec Sodium (137-145) mmol/L Chloride 109 H (98-107) mmol/L Carbon Dioxide 21 L (22-30) mmol/L BUN 39 H (7-17) mg/dL Creatinine (0.52-1.04) mg/dL Calcium 8.1 L (8.4-10.2) mg/dL Magnesium (1.6-2.3) mg/dL AST (14-36) U/L Total Protein (6.3-8.2) g/dL Albumin (3.5-5.0) g/dL Stool Occult Blood (Negative) Crossmatch Assessment and Plan Plan: 1 acute on chronic anemia with several sources of bleeding including epistaxis and possibly some GI bleeding. Consider upper GI bleeding this patient. The patient received a total of 4 units of packed RBC and hemoglobin level is at 7.5. No further bouts of bleeding. Coagulopathy has been reversed. Awaiting EGD/colonoscopy. She is post gastric bypass surgery and her last scope was back in 2013. 2 Coumadin toxicity and INR was above 10 recovered and the patient's INR is down to 1.3 3 morbid obesity with BMI 57.3, post-bariatric surgery with a Alex-en-Y gastric bypass many years back 4 obstructive sleep apnea not utilizing any form of CPAP machine 5 history of coronary artery disease 6 history of CVA with some residual right-sided weakness involving the right arm and right leg in addition to speech deficits and the patient is considered to be at an increased risk of falls 7 previous history of DVT and pulmonary embolism maintained on long-term medical condition with warfarin 7 hypothyroidism 8 COPD with chronic hypoxic respiratory failure maintained on oxygen at 3 L per minute nasal cannula 9 history of broken heart syndrome/takasubo syndrome back in October 2019 10 history of gastric ulcer/hiatal hernia/IBS/benign colonic polyps 11 chronic low back pain along with scoliosis and also process and chronic myofascial pain 12 history of occipital neuralgia 13 migraines 14 restless leg syndrome 15 hypothyroidism 16 history of seizure disorder 17 fall with x-rays of the knee foot and shoulder showing no evidence of any fracture. In addition the CAT scan of the head and cervical spine showed no acute abnormalities. She did have some mild degenerative changes of the cervical spine condition to foraminal narrowing at the level of C5-C6. Plan Complete a total of 4 units of packed RBC transfusion Coagulopathy has been reversed and will hold the warfarin for now watch for any signs of GI bleed IV Protonix 40 mg every 12 hours GI consultation regarding GI bleed and the patient is going to have an EGD on Monday Monitor hemodynamics and blood pressure and utilized pressors if needed Hold Coumadin for now Keep the patient nothing by mouth for now except for her medication and the patient will be offered to her seizure medication in addition to her Requip and Synthroid and her Lipitor. Keep the patient off her diuretic and off metoprolol for now as the patient's blood pressure is still borderline low. Would also keep the Cozaar on hold. she can be transferred out to a medical floor Compression devices to lower extremities
--- NOTE | 2020-05-16 12:23 | CONS ---
CONSULTATION DATE OF SERVICE: 05/16/2020 REASON FOR CONSULTATION: Severe symptomatic anemia with a hemoglobin of 5.8 g/dL. HISTORY OF PRESENT ILLNESS: The patient is a 65-year-old pleasant white female admitted to the hospital with generalized weakness, not feeling well, tired, weak and had a fall at home and hurt her left sided shoulder. She came to the emergency room and was noted to have a hemoglobin of 5.8 and significantly elevated INR at more than 10. She was given vitamin K and 2 units of PRBC transfusion and admitted to the intensive care unit for further management. The patient has been complaining of some vague epigastric discomfort, but yesterday she did have some epistaxis and she also had some bleeding from her left ear. Her symptoms have since subsided. She denies any blood in the stool, but she has noticed some dark-colored stool for the last one week duration. In the ER, was noted to have a hemoglobin of 5.8 and received 2 units of PRBC transfusion. She was given vitamin K and fresh frozen plasma and INR today is down to 1.3. She is complaining of some epigastric discomfort. No nausea, no vomiting. She has prior history of gastric bypass surgery 25 years ago with Alex-en-Y anastomosis. No prior history of peptic ulcer disease. Lately has been taking Motrin because of left shoulder pain. She also has history of DVT and PE in the past and has been maintained on Coumadin for several years. Her last EGD and colonoscopy were done by Dr. Felton approximately 10 years ago and according to the patient, she had some colon polyps. PAST MEDICAL HISTORY: Significant for coronary artery disease, history of DVT and PE in the past, history of fibromyalgia, gastroesophageal reflux disease, morbid obesity, hypertension, hyperlipidemia, seizure disorder, sleep apnea, history of CVA with right-sided weakness. PAST SURGICAL HISTORY: Bariatric surgery 25 years ago, history of hernia repair, hysterectomy, tubal ligation, EGD and colonoscopy in 2013, bladder suspension, rotator cuff surgery, left arthroscopy. MEDICATIONS: Medications at home include Synthroid, Trintellix, Requip, [place], Nexium, Lipitor, Nitrostat, Coumadin, albuterol, vitamin D3, Lasix, Cozaar, Cataflam, Bumex, Elavil, Topamax, metoprolol. ALLERGIES: SULFA, KEFZOL, BEXTRA, CODEINE, SKELAXIN. SOCIAL HISTORY: No smoking. No alcohol use. FAMILY HISTORY: Father had coronary artery disease. REVIEW OF SYSTEMS: CARDIOPULMONARY: She denies any chest pain or shortness of breath. GENITOURINARY: No dysuria. No hematuria. MUSCULOSKELETAL: Left shoulder pain and recent fall. NEUROLOGY: Unremarkable. History of CVA in the past. ENDOCRINE: Unremarkable. PSYCHIATRIC: Unremarkable. ENT/VISION: Unremarkable. CONSTITUTIONAL: No recent weight loss. No fever, chills, night sweats. HEMATOLOGY: Severe anemia. PHYSICAL EXAMINATION: GENERAL: She appears comfortable. No apparent distress. VITAL SIGNS: Stable. Blood pressure is 110/68, pulse 63, temperature 98.2. HEENT: Examination unremarkable. Conjunctivae pale. Sclerae anicteric. Oral cavity, no lesions. NECK: No JVD or lymph node enlargement. CHEST: Clear to auscultation. HEART: Regular rate and rhythm. ABDOMEN: Soft, it was obese. There was tenderness in the epigastric area. Rest of the abdomen was benign. Bowel sounds are positive. No organomegaly. EXTREMITIES: No pedal edema. NEURO: She is alert and oriented x3. No focal deficits. LABS: Labs done at the time of admission to the hospital: WBC 5, hemoglobin 5.8, platelets 226. INR is 1.3. At the time of admission the the hospital INR was more than 10. BUN is 59, creatinine 1.11. AST, ALT, T-bilirubin and alkaline phosphatase are within normal limits. Stool occult blood is positive. Coronavirus PCR is negative. IMPRESSION: 1. Severe symptomatic anemia with a hemoglobin of 5.8 g/dL with clinically no evidence of active bleeding. Patient does state that she had some dark colored stools for the last one week duration, but no melena noted. She received 2 units of PRBC transfusion. Hemoglobin is 7.4 g/dL. Last EGD and colonoscopy was done 7 years ago and according the patient, she had small colon polyps. 2. History of gastric bypass surgery 25 years ago. 3. History of deep venous thrombosis/pulmonary embolism on Coumadin which is currently on hold. INR was more than 10. It was reversed with vitamin K and fresh frozen plasma and repeat INR is 1.3. 4. History of hypertension, hyperlipidemia. 5. History of morbid obesity. 6. History of cerebrovascular accident in the past with left-sided weakness. RECOMMENDATIONS: 1. Start on a clear liquid diet. 2. Continue with Protonix 40 mg twice daily. 3. Monitor CBC daily and transfuse if the hemoglobin is less than 7. 4. I had a lengthy discussion with the patient regarding workup for severe symptomatic anemia and we will proceed with EGD and colonoscopy on Monday. I discussed with her risks, benefits and complications and she is agreeable to it. Thank you for this consultation. JEREMIE / MARIA TERESAN: [id number] /
[2020-05-16] MEDS: LORazepam 1 MG TAB PO PRN ×2 (14:31→23:39)
[2020-05-16] MEDS: IPRATROPIUM-ALBUTEROL 3 ML NEB INHALATION PRN ×2 (16:00→21:36)
--- NOTE | 2020-05-16 16:29 | PN ---
PROGRESS NOTE DATE OF SERVICE: 05/16/2020 I am covering for Dr. Lee. INTERVAL HISTORY: This is a 65-year-old woman who was admitted with acute GI bleed and coagulopathy. Also had acute blood loss anemia. Dr. Charles saw the patient for the hemoglobin 5.8 and has recommended clear liquids at this time. An EGD and colonoscopy on Monday was being planned by Dr. Charles. Currently the patient is also complaining of significant twitching. Hemoglobin 7.4 today and the patient is being closely monitored. The patient apparently taking Requip several times a day. PAST MEDICAL HISTORY: Reviewed. REVIEW OF SYSTEMS: CARDIOVASCULAR: No angina. RESPIRATORY: As mentioned earlier. GI: As mentioned earlier. : No dysuria. NERVOUS SYSTEM: No numbness or weakness. CURRENT MEDICATIONS: Reviewed and include [place], Elavil, Lipitor, Dilaudid, Topamax, Trintellix. Doses reviewed Requip is 2 mg q.a.m. and 6 mg q.h.s. PHYSICAL EXAM: GENERAL: Patient is alert oriented times three. VITAL SIGNS: Pulse 65, blood pressure 118/77, respiration 20, temperature 97.6, pulse ox 100% on 2 liters. HEENT: Conjunctivae normal. Oral mucosa moist. NECK: No jugular venous distention. No carotid bruits. No lymph node enlargement. RESPIRATORY: Breath sounds diminished at the bases. No rhonchi, no crackles. HEART: S1 and S2, muffled. ABDOMEN: Soft, no tenderness. No masses palpable. EXTREMITIES: No edema, no swelling. NERVOUS: Diffusely weak. LAB STUDIES: WBC 5.2, hemoglobin 7.4, INR 1.3. Sodium 137, potassium 4.4. ASSESSMENT: 1. Acute gastrointestinal bleeding with acute blood loss anemia status post blood transfusion. 2. Coagulopathy secondary to INR, on Coumadin. 3. Acute blood loss anemia. 4. Hypotension and hypothermia secondary to above. 5. Acute on chronic hypoxic respiratory failure. 6. Chronic left rotator cuff tear with possible avulsion of the acromion from the scapula. Planned surgery next month. 7. History of deep venous thrombosis and pulmonary embolism, on Coumadin. 8. History of cerebrovascular accident with right-sided hemiparesis and speech difficulty. 9. Chronic obstructive pulmonary disease, chronic hypoxic respiratory failure related to oxygen. 10.History of coronary artery disease. 11.History of congestive heart failure, chronic. 12.Fibromyalgia. 13.Gastroesophageal reflux disease. 14.History of gastrointestinal bleed. 15.Hearing difficulty. 16.Hypertension. 17.Hyperlipidemia. 18.Memory impairment. 19.History of degenerative joint disease. 20.History of seizure disorder. 21.History of sleep apnea. 22.History of hypothyroidism. 23.Morbid obesity with BMI of 57. DISCUSSION AND RECOMMENDATIONS: Recommend to continue current management and symptomatic treatment. Otherwise, 1 unit transfusion with Lasix 20 after that. Repeat hemoglobin. Endoscopies by Dr. Charles. Prognosis guarded because of multiple complex medical issues. We will restart some other medications also and hold the Coumadin. MMODL / IJN: [id number] / SAVANNAH
[2020-05-16] MEDS: POTASSIUM CHLORIDE ER 20 MEQ TAB.ER PO SCH ×2 (17:06→20:42)
[2020-05-16] MEDS: FUROSEMIDE 40 MG TAB PO SCH (20:42)
[2020-05-16] MEDS: TOPIRAMATE 25 MG TAB PO SCH (20:42)
[2020-05-16] MEDS: rOPINIRole HCL 4 MG TABLET PO SCH (20:42)
[2020-05-16] MEDS: AMITRIPTYLINE HCL 25 MG TAB PO SCH (20:42)
[2020-05-16] MEDS: ATORVASTATIN 40 MG TAB PO SCH (20:43)
[2020-05-16] MEDS: BUMETANIDE 1 MG TAB PO SCH (20:43)
[2020-05-17] MEDS: HYDROmorphone 0.5 MG/0.5 ML SYRINGE IVP PRN (00:29)
[2020-05-17] MEDS: LEVOTHYROXINE 88 MCG TAB PO SCH (06:08)
[2020-05-17] MEDS: HYDROcodone/APAP 7.5-325MG 1 EACH TAB PO PRN ×3 (06:08→22:47)
[2020-05-17] MEDS ORDERED: NON FORMULARY DRUG (Esomeprazole Magnesium [Esomeprazole Magnesium] 40 MG Capsule.Dr) PO SCH (09:00)
[2020-05-17] MEDS ORDERED: ERGOCALCIFEROL 1,250 MCG (50,000 IU) CAPSULE PO SCH (09:00)
[2020-05-17] MEDS: LOSARTAN 25 MG TAB PO SCH (09:23)
[2020-05-17] MEDS: POTASSIUM CHLORIDE ER 20 MEQ TAB.ER PO SCH ×4 (09:23→20:07)
[2020-05-17] MEDS: FUROSEMIDE 40 MG TAB PO SCH ×2 (09:23→20:06)
[2020-05-17] MEDS: VORTIOXETINE HYDROBROMIDE 10 MG TABLET PO SCH (09:23)
[2020-05-17] MEDS: risperiDONE 2 MG TAB PO SCH (09:24)
[2020-05-17] MEDS: BUMETANIDE 1 MG TAB PO SCH ×2 (09:24→20:07)
[2020-05-17] MEDS: METOPROLOL SUCCINATE (ER) 25 MG TAB.ER.24H PO SCH (09:24)
[2020-05-17] MEDS: PANTOPRAZOLE 40 MG/10 ML VIAL IVP SCH ×2 (09:24→20:07)
[2020-05-17] MEDS: VRAYLAR 1.5 MG PO SCH (09:45)
[2020-05-17 10:05] LABS: Basophils # (A) 0.04 X 10*3/uL (0.00-0.10); Basophils % (A) 0.6 %; Eosinophils # (A) 0.16 X 10*3/uL (0.04-0.35); Eosinophils % (A) 2.3 %; HCT 24.5 % (37.2-46.3); HGB 7.6 g/dL (12.0-15.0); Lymphocytes # (A) 1.39 X 10*3/uL (0.90-5.00); Lymphocytes % (A) 19.9 %; MCH 27.7 pg (27.0-32.0); MCV 89.4 fL (80.0-97.0); Mean Platelet Volume 10.7 fL (9.5-12.2); Monocytes # (A) 1.08 X 10*3/uL (0.20-1.00); Monocytes % (A) 15.4 %; Neutrophils # (A) 4.06 X 10*3/uL (1.80-7.70); Neutrophils % (A) 57.9 %; Platelet Count 262 X 10*3/uL (140-440); RBC 2.74 X 10*6/uL (4.10-5.20); RDW 17.5 % (11.5-14.5)
[2020-05-17 10:11] LABS: African American GFR (CKD) 104.6 (60.0-200.0); BUN/Creat Ratio 35.71 Ratio (12.00-20.00); Calcium 8.8 mg/dL (8.7-10.3); Non-African American GFR(CKD) 90.3 (60.0-200.0); Potassium 4.5 mmol/L (3.5-5.5)
--- NOTE | 2020-05-17 12:21 | PN ---
PROGRESS NOTE DATE OF SERVICE: 05/17/2020 The patient is a 65-year-old pleasant white female admitted to the intensive care unit with severe anemia with a hemoglobin of 6.6 requiring 2 units of PRBC transfusion. She was on Coumadin with an elevated INR of more than 10, was given vitamin K and fresh frozen plasma and her INR was reversed. She was having some dark-colored stools and some epigastric pain for the last 3 or 4 days duration. She is feeling better. She denies any symptoms. No abdominal pain. No nausea, vomiting. PHYSICAL EXAMINATION: On physical examination appears comfortable. No apparent distress. VITAL SIGNS: Stable. Blood pressure is 132/70, pulse rate 87, temperature 97.8. HEENT examination unremarkable. Conjunctivae pink. Sclerae anicteric. Oral cavity no lesions. NECK: No JVD or lymph node enlargement. CHEST was clear to auscultation. HEART: Regular rate and rhythm. ABDOMEN: Soft. Bowel sounds are positive. No organomegaly. EXTREMITIES: No pedal edema. SKIN: No rashes. NEUROLOGIC: Alert and oriented x3. No focal deficits. LABS: From today hemoglobin 7.6, platelets normal. Rest of the labs are within normal limits. IMPRESSION: 1. Severe symptomatic anemia with a hemoglobin of 5.8 g/dL status post 2 units of PRBC transfusion, last hemoglobin is 7.6 g/dL. 2. History of deep venous thrombosis and pulmonary embolism, on Coumadin, currently on hold. 3. History of gastric bypass surgery. RECOMMENDATIONS: 1. Monitor CBC daily. 2. Continue with a clear liquid diet. 3. We will proceed with EGD and colonoscopy tomorrow. I discussed with the patient risks, benefits and complications of the procedure and she is agreeable to it. Thank you for this consultation. MMODL / IJN: [id number] /
[2020-05-17] MEDS ORDERED: PEG 3350-NA SULF,BICARB,CL/KCL 4,000 ML BOTTLE PO ONE (17:00)
--- NOTE | 2020-05-17 17:18 | P.CNNES ---
History of Present Illness Consult date: 05/17/20 Reason for Consult: restless leg syndrome History of Present Illness: The patient is a 65-year-old female seen in neurologic consultation on May 17, 2020, via teleneurology. Per patient, she was not aware of the request for a neurology consult. She states she was diagnosed with restless leg syndrome many years ago. She saw a n eurologist for this diagnosis and was started on Requip years ago. She states that she began taking just one dose of Requip at bedtime. Her symptoms worsened and she required 3 tablets daily. She says she has tried no other medications for this diagnosis. She does note that those symptoms seem to wax and wane. She denies worsening of her leg movements, since her hospitalization. She does report having tried Flexeril in the past, for the leg movements. Her doctor discontinued this medication because he felt it was a poor choice. Patient reports that it was beneficial. Patient denies having tried baclofen and Zanaflex. She says that her legs are constantly moving. The leg movements interfere with her ability to drive a car. She has not tried walking, as a way of decreasing the leg movements. She says they are most problematic in the middle of the night. She has found benefit with her shower jets, to her legs. This however is short-lived. Past Medical History Past Medical History: Asthma, Coronary Artery Disease (CAD), Chest Pain / Angina, Heart Failure, COPD, CVA/TIA, Deep Vein Thrombosis (DVT), Fibromyalgia, GERD/Reflux, GI Bleed, Hearing Disorder / Deafness, Hyperlipidemia, Hypertension, Memory Impairment, Myocardial Infarction (NC), Osteoarthritis (OA), Pneumonia, Pulmonary Embolus (PE), Respiratory Disorder, Seizure Disorder, Skin Disorder, Sleep Apnea/CPAP/BIPAP, Thyroid Disorder Additional Past Medical History / Comment(s): 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 Alex-en-Y gastric bypass for morbid obesity Last Myocardial Infarction Date:: 2002 History of Any Multi-Drug Resistant Organisms: None Reported Past Surgical History: Bariatric Surgery, Hernia Repair, Hysterectomy, Orthopedic Surgery, Tubal Ligation Additional Past Surgical History / Comment(s): 10/19/19 PCI with stent, EGDs, colonoscopy/benign polyps, gastric bypass with revision, ventral and hiatal hernia repair, bladder suspension, R rotator curr repair/revision, L knee arthroscopy, rectocele, perinealplasty, Past Anesthesia/Blood Transfusion Reactions: Motion Sickness Past Psychological History: Anxiety, Depression Smoking Status: Never smoker Past Alcohol Use History: Rare Past Drug Use History: None Reported - Past Family History Mother Family Medical History: Coronary Artery Disease (CAD), Eye Disorder Additional Family Medical History / Comment(s): Mother is 91 yrs old Father Family Medical History: Myocardial Infarction (NC) Additional Family Medical History / Comment(s): Father of a massive NC at the age of 53 yrs. Sister(s) Family Medical History: Cancer Medications and Allergies Home Medications Medication Instructions Recorded Confirmed Type Levothyroxine Sodium [Synthroid] 88 mcg PO DAILY 08/09/13 05/15/20 History Vortioxetine Hydrobromide 10 mg PO DAILY 11/04/15 05/15/20 History [Trintellix] rOPINIRole HCL [Requip] 6 mg PO HS@2100 11/09/17 05/15/20 History Esomeprazole Magnesium 40 mg PO DAILY 10/18/19 05/15/20 History Hydrocodone/Acetaminophen [[place] 1 tab PO QID 10/18/19 05/15/20 History 7.5-325] Atorvastatin [Lipitor] 40 mg PO HS #30 tab 10/20/19 05/15/20 Rx Nitroglycerin Sl Tabs [Nitrostat] 0.4 mg SUBLINGUAL Q5M PRN #30 tab 10/20/19 05/15/20 Rx Warfarin [Coumadin] 10 mg PO DAILY@1800 #10 tab 12/02/19 05/15/20 Rx Ipratropium-Albuterol Nebulize 3 ml INHALATION RT-QID PRN 12/17/19 05/15/20 History [Duoneb 0.5 mg-3 mg/3 ml Soln] Metoprolol Succinate (ER) [Toprol 25 mg PO DAILY 12/17/19 05/15/20 History XL] Potassium Chloride ER [K-Dur 20] 40 meq PO QID 12/17/19 05/15/20 History Topiramate [Topamax] 50 mg PO HS #1 tab 12/19/19 05/15/20 Rx Amitriptyline HCl [Elavil] 75 mg PO HS 05/15/20 05/15/20 History Bumetanide [BUMEX] 1 mg PO BID 05/15/20 05/15/20 History Cariprazine HCl [Vraylar] 1.5 mg PO DAILY 05/15/20 05/15/20 History Diclofenac Potassium [Cataflam] 50 mg PO BID 05/15/20 05/15/20 History Ergocalciferol [Vitamin D2 (1250 1,250 mcg PO RALPH 05/15/20 05/15/20 History Mcg = 82096 Iu)] Furosemide [Lasix] 40 mg PO BID 05/15/20 05/15/20 History Losartan [Cozaar] 25 mg PO DAILY 05/15/20 05/15/20 History risperiDONE [RisperDAL] 2 mg PO DAILY 05/16/20 05/16/20 History Allergies Allergy/AdvReac Type Severity Reaction Status Date / Time cefprozil [From Cefzil] Allergy Unknown Verified 05/15/20 12:24 Sulfa (Sulfonamide Allergy Rash/Hives Verified 05/15/20 12:24 Antibiotics) valdecoxib [From Bextra] Allergy Unknown Verified 05/15/20 12:24 codeine AdvReac DIFFICULTY Verified 05/15/20 12:24 URINATING metaxalone [From Skelaxin] AdvReac Nausea & Verified 05/15/20 12:24 Vomiting Physical Examination - Vital Signs Vital Signs: Vital Signs Temp Pulse Pulse Resp BP BP Pulse Ox 05/17/20 11:47 82 18 116/65 99 05/17/20 06:11 97.8 F 87 19 122/80 100 05/16/20 21:47 76 05/16/20 21:36 76 05/16/20 21:21 97.6 F 79 19 133/87 99 Intake and Output 05/17/20 05/17/20 05/17/20 06:59 14:59 22:59 Intake Total 600 Output Total 1999 2800 Balance -1400 -2800 Intake: IV 600 0.9 kvo 600 Output: Urine 1999 2800 Other: Voiding Method Indwelling Catheter # Bowel Movements 1 Gen.: The patient is reclining in the bed. She is morbidly obese. She is in no acute distress. It is noted that during the history taking, the patient's legs are constantly moving. The movements are more consistent with repositioning, as opposed to myoclonic or jerking type movements. HEENT: Head is atraumatic, normocephalic. Fundus not visualized. There is no scleral icterus. Mucous membranes are moist. Neck: Supple without carotid bruits Heart: Regular rate and rhythm Extremities: There is edema of the bilateral lower extremities. Neurological examination Mental status: The patient is awake, alert and oriented 3. Her speech is clear . There is no dysarthria or aphasia. Cranial nerves: Pupils are equal, round and reactive to light. Visual vogt are full to confrontation. Extraocular movements are intact. There is no nystagmus. Facial sensation is intact. There is no facial asymmetry. Hearing is grossly intact. Uvula and palate are midline. Shoulder shrug is symmetric. Tongue protrudes midline. Motor: Bilateral campus administrator, biceps and triceps strength are 4-5/5 and symmetric. Deltoid strength is not assessed secondary to bilateral shoulder injuries. Bilateral ankle plantar and dorsiflexors 5/5. Sensation: Grossly intact to light touch throughout. There is no extinction on double simultaneous stimulation. Deep tendon reflexes: Difficult to accurately assess secondary to body habitus Coordination: Finger to nose testing is intact bilaterally. There is no tremor. Abnormal movements: While the patient is reclining in the bed, there are constant repositioning type movements of the bilateral lower extremities. The patient then sits at the edge of the bed and all lower extremity movement ceases. Gait: The patient is observed walking, with the assistance of a walker, from the bed to the chair. She takes very short, cautious steps. While seated in the chair, there are no abnormal movements of the legs. Results - Laboratory Findings CBC and BMP: 05/17/20 04:57 05/17/20 04:57 Abnormal Lab Findings: Abnormal Labs 05/15/20 05/15/20 05/15/20 11:00 11:00 11:00 RBC 2.13 L Hgb 5.8 L* Hct 18.4 L* MCHC RDW 17.3 H Immature Gran # Monocytes # Myelocytes # (Manual) Nucleated RBCs PT >130.0 H INR >10.0 H* APTT 121.6 H* Sodium 131 L Chloride Carbon Dioxide BUN 59 H Creatinine 1.11 H BUN/Creatinine Ratio Calcium 8.3 L Magnesium 2.6 H AST 45 H Total Protein 5.4 L Albumin 2.9 L Stool Occult Blood Crossmatch 05/15/20 05/15/20 05/15/20 12:21 12:21 20:55 RBC 2.08 L Hgb 5.8 L* Hct 17.9 L* MCHC RDW 16.4 H Immature Gran # Monocytes # Myelocytes # (Manual) Nucleated RBCs PT INR APTT Sodium Chloride Carbon Dioxide BUN Creatinine BUN/Creatinine Ratio Calcium Magnesium AST Total Protein Albumin Stool Occult Blood Positive H Crossmatch See Detail 05/15/20 05/16/20 05/16/20 20:55 07:27 07:27 RBC 2.68 L Hgb 7.4 L D Hct 23.2 L MCHC RDW 17.0 H Immature Gran # Monocytes # Myelocytes # (Manual) 0.10 H Nucleated RBCs 1 H PT 13.1 H INR 1.3 H APTT Sodium Chloride 109 H Carbon Dioxide 21 L BUN 39 H Creatinine BUN/Creatinine Ratio Calcium 8.1 L Magnesium AST Total Protein Albumin Stool Occult Blood Crossmatch 05/17/20 05/17/20 04:57 04:57 RBC 2.74 L Hgb 7.6 L Hct 24.5 L MCHC 31.0 L RDW 17.5 H Immature Gran # 0.27 H Monocytes # 1.08 H Myelocytes # (Manual) Nucleated RBCs PT INR APTT Sodium Chloride Carbon Dioxide BUN Creatinine BUN/Creatinine Ratio 35.71 H Calcium Magnesium AST Total Protein Albumin Stool Occult Blood Crossmatch Assessment and Plan Assessment: 1. Reported diagnosis of restless leg syndrome many years. The patient reports that her legs are moving constantly. She has not noticed any worsening of this movement, since admission to the hospital. 2. Severe anemia 3. Multiple medical problems Plan: 1. Suggested initiating gabapentin and titrating the dose while lowering the dose of Requip, to perhaps better control the patient's leg movements. We will order gabapentin 100 mg twice daily. Weaning and titration need to be continued as an outpatient. 2. The patient claims to be taking Trileptal as an outpatient and would like to stop this and replace it with gabapentin however, I do not see this medication l isted 3. Patient should follow up with her neurologist regarding continued treatment for restless leg syndrome Time with Patient: Greater than 30 (spent 45 minutes with patient via teleneurology)
--- NOTE | 2020-05-17 17:50 | PN ---
PROGRESS NOTE DATE OF SERVICE: 05/17/2020 I am covering for Dr. Lee. This 65-year-old woman was admitted with acute GI bleed and had some melenic stools. The hemoglobin was found to be 7.6. The patient has received 4 units of transfusions so far. Dr. Charles is following the patient closely and planning EGD and colonoscopy on Monday. The patient also has severe abnormal movements of both legs. Possibly withdrawal. PAST MEDICAL HISTORY: Reviewed. REVIEW OF SYSTEMS: CARDIOVASCULAR: No angina. RESPIRATORY: As mentioned earlier. GI: As mentioned earlier. : No dysuria. NERVOUS SYSTEM: No numbness or weakness. ALLERGY/IMMUNOLOGY: No asthma or hayfever. CURRENT MEDICATIONS: Reviewed and include [place], Elavil, DuoNeb, Lipitor, Bumex, vitamin D2, Lasix, Dilaudid, Synthroid, Ativan, Cozaar, Toprol-XL, Narcan, Nitrostat, Protonix, [place], K-Dur, Risperdal, Requip, Topamax, Trintellix. PHYSICAL EXAMINATION: GENERAL: Patient is alert and oriented times three. VITAL SIGNS: Pulse 82, blood pressure 160/64, respirations 18, temperature 97.8, pulse ox 99% on 3 liters. HEENT: Conjunctivae normal. Oral mucosa moist. NECK: No jugular venous distention. No carotid bruits. No lymph node enlargement. RESPIRATORY: Breath sounds diminished at the bases. No rhonchi, no crackles. HEART: S1 and S2, muffled. ABDOMEN: Soft, no tenderness. Obese. EXTREMITIES: No edema, no swelling. NERVOUS: Diffusely weak. Abnormal movements. LABS: WBC 7, hemoglobin 7.6. ASSESSMENT: 1. Acute gastrointestinal bleed with acute blood loss anemia status post blood transfusion x4. 2. Coagulopathy secondary to INR, on Coumadin. 3. Acute blood loss anemia. 4. Hypotension, hypothermia, secondary to above. 5. Acute on chronic hypoxic respiratory failure. 6. Abnormal leg movements, possibly dyskinetic reactions or drug withdrawal. 7. Chronic left rotator cuff tear with possible avulsion off the acromion from the scapula. Planned surgery next month. 8. History of deep venous thrombosis and pulmonary embolism, on Coumadin. 9. History of cerebrovascular accident with right-sided hemiparesis. 10.Speech difficulties. 11.Chronic obstructive pulmonary disease with chronic hypoxic respiratory failure, on oxygen. 12.History of coronary artery disease. 13.History of congestive heart failure, chronic. 14.Fibromyalgia. 15.Gastroesophageal reflux disease. 16.History of gastrointestinal bleed. 17.Hearing difficulty. 18.Hypertension. 19.Hyperlipidemia. 20.History of memory impairment. 21.History of degenerative joint disease. 22.History of seizure disorder. 23.History of sleep apnea. 24.History of hypothyroidism. 25.Morbid obesity with body mass index of 57. RECOMMENDATION AND DISCUSSION: Recommend to continue current management and continue with symptomatic treatment. Otherwise at this time I would recommend continue with current medications. EGD and colonoscopy by Dr. Charles. Hold antiplatelet agents and anticoagulants currently. Also recommended a neurology consultation regarding abnormal movements. The patient is apparently taking significantly higher dose of Requip other than prescribed at home according to her, almost [address] Lee will follow. MMJUWANL / MARIA TERESAN: [id number] /
[2020-05-17] MEDS: AMITRIPTYLINE HCL 25 MG TAB PO SCH (20:07)
[2020-05-17] MEDS: GABAPENTIN 100 MG CAP PO SCH (20:07)
[2020-05-17] MEDS: TOPIRAMATE 25 MG TAB PO SCH (20:07)
[2020-05-17] MEDS: rOPINIRole HCL 4 MG TABLET PO SCH (20:07)
[2020-05-17] MEDS: ATORVASTATIN 40 MG TAB PO SCH (20:07)
[2020-05-18] MEDS: HYDROmorphone 0.5 MG/0.5 ML SYRINGE IVP PRN ×2 (01:53→08:05)
[2020-05-18] MEDS: LEVOTHYROXINE 88 MCG TAB PO SCH (05:49)
[2020-05-18] MEDS ORDERED: MAGNESIUM CITRATE 296 ML BOTTLE PO ONE (08:51)
[2020-05-18] MEDS: LOSARTAN 25 MG TAB PO SCH (09:16)
[2020-05-18] MEDS: VORTIOXETINE HYDROBROMIDE 10 MG TABLET PO SCH (09:16)
[2020-05-18] MEDS: risperiDONE 2 MG TAB PO SCH (09:16)
[2020-05-18] MEDS: GABAPENTIN 100 MG CAP PO SCH (09:16)
[2020-05-18] MEDS: PANTOPRAZOLE 40 MG/10 ML VIAL IVP SCH (09:17)
[2020-05-18] MEDS: VRAYLAR 1.5 MG PO SCH (09:17)
[2020-05-18] MEDS: FUROSEMIDE 40 MG TAB PO SCH (09:17)
[2020-05-18] MEDS: BUMETANIDE 1 MG TAB PO SCH (09:17)
[2020-05-18] MEDS: METOPROLOL SUCCINATE (ER) 25 MG TAB.ER.24H PO SCH (09:17)
[2020-05-18 09:30] LABS: Basophils # (A) 0.06 X 10*3/uL (0.00-0.10); Basophils % (A) 0.7 %; Eosinophils # (A) 0.25 X 10*3/uL (0.04-0.35); Eosinophils % (A) 3.1 %; HCT 26.8 % (37.2-46.3); HGB 8.1 g/dL (12.0-15.0); Lymphocytes # (A) 1.36 X 10*3/uL (0.90-5.00); Lymphocytes % (A) 16.8 %; MCH 27.6 pg (27.0-32.0); MCHC 30.2 g/dL (32.0-37.0); MCV 91.5 fL (80.0-97.0); Mean Platelet Volume 10.4 fL (9.5-12.2); Monocytes # (A) 1.17 X 10*3/uL (0.20-1.00); Monocytes % (A) 14.4 %; Neutrophils # (A) 5.08 X 10*3/uL (1.80-7.70); Neutrophils % (A) 62.8 %; Platelet Count 276 X 10*3/uL (140-440); RBC 2.93 X 10*6/uL (4.10-5.20); RDW 17.5 % (11.5-14.5)
[2020-05-18 09:52] LABS: African American GFR (CKD) 110.1 (60.0-200.0); Anion Gap 8.1 mmol/L (4.00-12.00); BUN/Creat Ratio 31.67 Ratio (12.00-20.00); Calcium 9.2 mg/dL (8.7-10.3); Carbon Dioxide 29.9 mmol/L (21.6-31.8); Potassium 4.6 mmol/L (3.5-5.5)
--- NOTE | 2020-05-18 11:57 | P.PN ---
Subjective Progress Note Date: 05/18/20 This is a 65-year-old female with history of acute GI bleed, coagulopathy on Coumadin and multiple other medical issues. Patient required vitamin K and FFP to reverse her initial INR of greater than 10 , status post multiple units of packed RBCs during this admission. Current hemoglobin 8.1, platelets 276 with no further bleeding reported. sitting up in chair, denies nausea vomiting. Denies abdominal pain. States she is not completely cleared yet so her EGD and colonoscopy is scheduled for later this afternoon. Denies chest pain, palpitations or shortness of breath. Evaluated by neurology with recommendations noted and appreciated. Objective - Vital Signs Vital signs: Vital Signs Temp 97.7 F 05/18/20 05:00 Pulse 69 05/18/20 05:00 Resp 18 05/18/20 05:00 BP 139/81 05/18/20 05:00 Pulse Ox 96 05/18/20 05:00 Intake & Output 05/17/20 05/18/20 05/18/20 18:59 06:59 18:59 Intake Total 720 Output Total 3700 1300 Balance -3700 -580 Intake: Oral 720 Output: Urine 3700 1300 Other: Voiding Method Indwelling Catheter Indwelling Catheter # Bowel Movements 1 4 - Exam PHYSICAL EXAM: VITAL SIGNS: As above GENERAL: Alert and oriented 3, Sitting up in chair, no acute distress HEENT: Conjunctivae normal. eyes normal. NECK: No JVD. No thyroid enlargement. No LNs CARDIOVASCULAR: S1, S2 regular. No murmur RESPIRATION: Breath sounds diminished in the bases. No rhonchi or crackles. No bronchial breathing. ABDOMEN: Soft, nontender . No guarding. no masses palpable. No ascites, No hepatosplenomegaly.Bowel sounds heard. LEGS: No edema. no swelling, no calf tenderness, NERVOUS SYSTEM: Cranial N 2-12 grossly normal. Moves all 4 limbs. No focal deficits. Strength and sensation grossly intact.. Skin: Warm and dry, no rash - Labs CBC & Chem 7: 05/18/20 05:41 05/18/20 05:41 Labs: Abnormal Lab Results - Last 24 Hours (Table) 05/17/20 05/17/20 Range/Units 04:57 04:57 RBC 2.74 L (4.10-5.20) X 10*6/uL Hgb 7.6 L (12.0-15.0) g/dL Hct 24.5 L (37.2-46.3) % MCHC 31.0 L (32.0-37.0) g/dL RDW 17.5 H (11.5-14.5) % Immature Gran # 0.27 H (0.00-0.04) X 10*3/uL Monocytes # 1.08 H (0.20-1.00) X 10*3/uL BUN/Creatinine Ratio 35.71 H (12.00-20.00) Ratio Assessment and Plan Assessment: Acute severe symptomatic on chronic anemia, status post 2 units packed RBCs and a patient with history of upper and lower GI bleeds Coumadin toxicity status post vitamin K and FFP for reversal on admission Hypotension, hypothermia secondary to the above Acute on Chronic hypoxic, hypercapnic respiratory failure, wears 3 L nasal cannula at home History of DVT, PE Obstructive sleep apnea without device Gastroesophageal reflux disease COPD Hypothyroidism History of CVA, TIA, with residual right sided hemiparesis CAD, history of [place] History of takosubo syndrome in October 2019 Hypertension Hyperlipidemia Chronic systolic CHF Chronic pain syndrome Chronic restless leg syndrome IBS, history of History of possible neuralgia , migraines History of seizure disorder History of gastric bypass surgery Morbid obesity, BMI 58.9 Plan: Continue on current medication regime ,monitoring and symptomatic treatment. Discussed with RN, bed to be exchanged for a bariatric bed. Coumadin on hold.Maintain PPI and IV fluid hydration .NPO, scheduled for EGD and colonoscopy later today. Discharge planning in progress for tomorrow. The impression and plan of care has been dictated as directed. : I performed a history and examination of this patient, discussed the same with the dictator. I agree with the dictator's note ,documented as a scribe. Any additional findings or plans will be noted.
[2020-05-18 12:11] VITALS: BP 108/82; PULSE 71; RESP 17; TEMP 97.8
[2020-05-18] MEDS ORDERED: PROPOFOL 10 MG/ML 20 ML VIAL IV ONE (12:59)
[2020-05-18] MEDS ORDERED: LACTATED RINGERS 1,000 ML IV ONE (13:01)
--- NOTE | 2020-05-18 13:45 | P.PCN ---
Date of Procedure: 05/18/20 Procedure(s) Performed: Brief history: Patient is a pleasant 65-year-old white female admitted hospital with severe symptomatic anemia and hemoglobin of 5.8 g/dL. She has history of DVT/CN on Coumadin and her INR is more than 10. She received vitamin K and FFP and coagulopathy has been reversed. She is scheduled for an upper endoscopy as well as colonoscopy as a part of evaluation of severe symptomatic anemia. Procedure performed: Esophagogastroduodenoscopy with biopsy Colonoscopy Preoperative diagnosis: Severe symptomatic anemia and hemoglobin of 5.8 g/dL Anesthesia: MAC Procedure: After informed consent was obtained from the patient was brought into the endoscopy unit and IV sedation was administered by anesthesia under continuous monitoring. Initially upper endoscopy was done. The Olympus GF 160 video endoscope was inserted inserted into the mouth and esophagus intubated without a ny difficulty and was gradually advanced into the gastric pouch that appeared normal. Alex-en-Y anastomosis appeared normal. Scope was advanced age 50 cm into the jejunum and that appeared normal. Biopsies were done from this area. The scope was withdrawn to the gastric pouch that appeared normal. The scope was then withdrawn into the esophagus. The GE junction was located at 38 cm to the incisors. It appeared regular with no erythema erosions or ulcerations. Rest of the esophagus appeared normal. Patient tolerated the procedure well. At this time the patient continued to remain sedation. Initial digital rectal examination was normal. Olympus CF 160 video colonoscope was then inserted into the rectum and gradually advanced to the cecum without any difficulty. Careful examination was performed as the scope was gradually being withdrawn. The prep was excellent. The cecum, ascending colon, transverse colon, descending colon, sigmoid colon and rectum appeared normal. Retroflexion was performed in the rectum and no lesions were noted. Patient tolerated the procedure well. Impression: 1. Upper endoscopy revealed evidence of gastric bypass surgery with Alex-en-Y anastomosis that appeared normal. No evidence of anastomotic ulcers 2. Colonoscopy was essentially within normal limits with no evidence of colitis or colorectal neoplasia Recommendations: Findings of this examination were discussed with the patient. She was advised to follow with the biopsy results. She'll be scheduled for small bowel capsule endoscopy to evaluate further.
[2020-05-18] MEDS: HYDROcodone/APAP 7.5-325MG 1 EACH TAB PO PRN (15:55)
[2020-05-18] MEDS: POTASSIUM CHLORIDE ER 20 MEQ TAB.ER PO SCH ×3 (15:55→15:59)
--- NOTE | 2020-05-18 16:01 | P.DS ---
Providers Date of admission: 05/15/20 12:10 Expected date of discharge: 05/18/20 Attending physician: Edd Lee MD Consults: 05/15/20 12:32 Consult Physician Stat Consulting Provider: Garry Richard Consult Reason/Comments: Acute anemia, INR greater than 10 Do you want consulting provider notified?: Already Contacted 05/15/20 23:48 Consult Physician Urgent Consulting Provider: Nelly Charles Consult Reason/Comments: GI bleed Do you want consulting provider notified?: Yes, Notify in am 05/17/20 11:08 Consult Physician Routine Consulting Provider: Catie Max Consult Reason/Comments: restless leg syndrome Do you want consulting provider notified?: Yes Primary care physician: Edd Lee MD Hospital Course: Final Diagnoses: Acute severe symptomatic on chronic anemia, status post 2 units packed RBCs and a patient with history of upper and lower GI bleeds Coumadin toxicity status post vitamin K and FFP for reversal on admission Hypotension, hypothermia secondary to the above Acute on Chronic hypoxic, hypercapnic respiratory failure, wears 3 L nasal cannula at home History of DVT, PE Obstructive sleep apnea without device Gastroesophageal reflux disease COPD Hypothyroidism History of CVA, TIA, with residual right sided hemiparesis CAD, history of [place] History of takosubo syndrome in October 2019 Hypertension Hyperlipidemia Chronic systolic CHF Chronic pain syndrome Chronic restless leg syndrome IBS, history of History of possible neuralgia , migraines History of seizure disorder History of gastric bypass surgery Morbid obesity, BMI 58.9 Hospital course: This is a 65-year-old female with history of acute GI bleed, coagulopathy on Coumadin and multiple other medical issues. Patient required vitamin K and FFP to reverse her initial INR of greater than 10 , status post multiple units of packed RBCs during this admission. Current hemoglobin 8.1, platelets 276 with no further bleeding reported. sitting up in chair, denies nausea vomiting. Denies abdominal pain. States she is not completely cleared yet so her EGD and colonoscopy is scheduled for later this afternoon. Denies chest pain, palpitations or shortness of breath. Evaluated by neurology with recommendations noted and appreciated. Bed to be exchanged for a bariatric bed. Underwent EGD and colonoscopy. EGD reported gastric bypass surgery with Alex-en-Y anastomosis appeared normal with no evidence of anastomotic ulcers, colonoscopy report essentially within normal limits with no evidence of colitis or colorectal neoplasia. Small bowel capsule study ordered to start tonight-patient declined and insisted on being discharged today. Patient initially was open to discharge to [facility] rehab., but not available until tomorrow. Case management discussed with patient. Patient continues to be insistent upon discharge home today. GI okayed patient to resume Coumadin, but recommends patient proceed with outpatient capsule study as anemia etiology has not yet been discovered. Repeat INR/CBC/BMP on , 05/21/2020. Patient will be discharged home today in a stable condition with guarded prognosis. The impression and plan of care has been dictated as directed. : I performed a history and examination of this patient, discussed the same with the dictator. I agree with the dictator's note ,documented as a scribe. Any additional findings or plans will be noted. Patient Condition at Discharge: Stable Plan - Discharge Summary Discharge Rx Participant: No New Discharge Prescriptions: New Gabapentin [Neurontin] 100 mg PO BID #6 cap rOPINIRole HCL [Requip] 2 mg PO QAM #14 tab Continue Levothyroxine Sodium [Synthroid] 88 mcg PO DAILY Vortioxetine Hydrobromide [Trintellix] 10 mg PO DAILY rOPINIRole HCL [Requip] 6 mg PO HS@2100 Hydrocodone/Acetaminophen [[place] 7.5-325] 1 tab PO QID Esomeprazole Magnesium 40 mg PO DAILY Atorvastatin [Lipitor] 40 mg PO HS #30 tab Nitroglycerin Sl Tabs [Nitrostat] 0.4 mg SUBLINGUAL Q5M PRN #30 tab PRN Reason: Chest Pain Warfarin [Coumadin] 10 mg PO DAILY@1800 #10 tab Ipratropium-Albuterol Nebulize [Duoneb 0.5 mg-3 mg/3 ml Soln] 3 ml INHALATION RT-QID PRN PRN Reason: Shortness Of Breath Metoprolol Succinate (ER) [Toprol XL] 25 mg PO DAILY Potassium Chloride ER [K-Dur 20] 40 meq PO QID Topiramate [Topamax] 50 mg PO HS #1 tab Bumetanide [BUMEX] 1 mg PO BID Diclofenac Potassium [Cataflam] 50 mg PO BID Furosemide [Lasix] 40 mg PO BID Losartan [Cozaar] 25 mg PO DAILY Ergocalciferol [Vitamin D2 (1250 Mcg = 27126 Iu)] 1,250 mcg PO RALPH Cariprazine HCl [Vraylar] 1.5 mg PO DAILY Amitriptyline HCl [Elavil] 75 mg PO HS risperiDONE [RisperDAL] 2 mg PO DAILY Discharge Medication List Levothyroxine Sodium [Synthroid] 88 mcg PO DAILY 08/09/13 [History] Vortioxetine Hydrobromide [Trintellix] 10 mg PO DAILY 11/04/15 [History] rOPINIRole HCL [Requip] 6 mg PO HS@2100 11/09/17 [History] Esomeprazole Magnesium 40 mg PO DAILY 10/18/19 [History] Hydrocodone/Acetaminophen [[place] 7.5-325] 1 tab PO QID 10/18/19 [History] Atorvastatin [Lipitor] 40 mg PO HS #30 tab 10/20/19 [Rx] Nitroglycerin Sl Tabs [Nitrostat] 0.4 mg SUBLINGUAL Q5M PRN #30 tab 10/20/19 [Rx] Warfarin [Coumadin] 10 mg PO DAILY@1800 #10 tab 12/02/19 [Rx] Ipratropium-Albuterol Nebulize [Duoneb 0.5 mg-3 mg/3 ml Soln] 3 ml INHALATION RT-QID PRN 12/17/19 [History] Metoprolol Succinate (ER) [Toprol XL] 25 mg PO DAILY 12/17/19 [History] Potassium Chloride ER [K-Dur 20] 40 meq PO QID 12/17/19 [History] Topiramate [Topamax] 50 mg PO HS #1 tab 12/19/19 [Rx] Amitriptyline HCl [Elavil] 75 mg PO HS 05/15/20 [History] Bumetanide [BUMEX] 1 mg PO BID 05/15/20 [History] Cariprazine HCl [Vraylar] 1.5 mg PO DAILY 05/15/20 [History] Diclofenac Potassium [Cataflam] 50 mg PO BID 05/15/20 [History] Ergocalciferol [Vitamin D2 (1250 Mcg = 28038 Iu)] 1,250 mcg PO RALPH 05/15/20 [History] Furosemide [Lasix] 40 mg PO BID 05/15/20 [History] Losartan [Cozaar] 25 mg PO DAILY 05/15/20 [History] risperiDONE [RisperDAL] 2 mg PO DAILY 05/16/20 [History] Gabapentin [Neurontin] 100 mg PO BID #6 cap 05/18/20 [Rx] rOPINIRole HCL [Requip] 2 mg PO QAM #14 tab 05/18/20 [Rx] Follow up Appointment(s)/Referral(s): Edd Lee MD [Primary Care Provider] - 3 Days Nelly Charles MD [STAFF PHYSICIAN] - 2 Weeks Ambulatory/Diagnostic Orders: Prothrombin Time INR [LAB.AMB] Time Frame: 05/21/20, Location: None Selected Activity/Diet/Wound Care/Special Instructions: Patient is to follow-up with her own neurologist in 1 week.
== END 2020-05-18 17:08 | disposition home or self-care (01) | DRG 811 ==
LOC: EC 09:01 → 2SICU 12:10 → 5NMEDONC 05-16 12:08
PROVIDERS: ADMIT Family Medicine; ATTEND Family Medicine
PROC: 0DJ08ZZ Inspection of Upper Intestinal Tract, Via Natural or Artificial Opening Endoscopic (ICD-10-PCS; principal; 2020-05-18 07:30)
PROC: 0DJD8ZZ Inspection of Lower Intestinal Tract, Via Natural or Artificial Opening Endoscopic (ICD-10-PCS; principal; 2020-05-18 07:30)
PROC: 30233N1 Transfusion of Nonautologous Red Blood Cells into Peripheral Vein, Percutaneous Approach (ICD-10-PCS; principal; 2020-05-18 07:30)
PROC: 30233K1 Transfusion of Nonautologous Frozen Plasma into Peripheral Vein, Percutaneous Approach (ICD-10-PCS; principal; 2020-05-18 07:30)
DX: D62 Acute posthemorrhagic anemia (principal); J96.21 Acute and chronic respiratory failure with hypoxia; J96.22 Acute and chronic respiratory failure with hypercapnia; Z68.43 Body mass index [BMI] 50.0-59.9, adult; I50.22 Chronic systolic (congestive) heart failure; I69.351 Hemiplegia and hemiparesis following cerebral infarction affecting right dominant side; D68.9 Coagulation defect, unspecified; M79.7 Fibromyalgia; I11.0 Hypertensive heart disease with heart failure; I25.10 Atherosclerotic heart disease of native coronary artery without angina pectoris; G89.4 Chronic pain syndrome; H91.90 Unspecified hearing loss, unspecified ear; G47.33 Obstructive sleep apnea (adult) (pediatric); G25.81 Restless legs syndrome; F41.9 Anxiety disorder, unspecified; F32.9 Major depressive disorder, single episode, unspecified; E78.5 Hyperlipidemia, unspecified; E66.01 Morbid (severe) obesity due to excess calories; E03.9 Hypothyroidism, unspecified; Z20.822 Contact with and (suspected) exposure to COVID-19; G43.909 Migraine, unspecified, not intractable, without status migrainosus; G40.909 Epilepsy, unspecified, not intractable, without status epilepticus; M19.90 Unspecified osteoarthritis, unspecified site; K58.9 Irritable bowel syndrome, unspecified; K21.9 Gastro-esophageal reflux disease without esophagitis; M54.81 Occipital neuralgia; J44.9 Chronic obstructive pulmonary disease, unspecified; I27.20 Pulmonary hypertension, unspecified; R13.10 Dysphagia, unspecified; T45.515A Adverse effect of anticoagulants, initial encounter; M75.102 Unspecified rotator cuff tear or rupture of left shoulder, not specified as traumatic; I25.2 Old myocardial infarction; Z99.81 Dependence on supplemental oxygen; Z98.84 Bariatric surgery status; Z95.5 Presence of coronary angioplasty implant and graft; Z90.710 Acquired absence of both cervix and uterus; Z87.19 Personal history of other diseases of the digestive system; Z87.11 Personal history of peptic ulcer disease; Z86.718 Personal history of other venous thrombosis and embolism; Z86.711 Personal history of pulmonary embolism; Z82.49 Family history of ischemic heart disease and other diseases of the circulatory system; Z79.899 Other long term (current) drug therapy; Z79.890 Hormone replacement therapy; Z79.01 Long term (current) use of anticoagulants; Z88.1 Allergy status to other antibiotic agents; Z88.5 Allergy status to narcotic agent; Z88.2 Allergy status to sulfonamides; Z88.8 Allergy status to other drugs, medicaments and biological substances; Z98.890 Other specified postprocedural states; Z98.51 Tubal ligation status; Z80.9 Family history of malignant neoplasm, unspecified
CPT/HCPCS: 36415; 36430; 43239; 45378; 51702; 70450; 71045; 72125; 80048; 80053; 81003; 82272; 82607; 83540; 83550; 83605; 83735; 83880; 84484; 85025; 85027; 85610; 85730; 86850; 86900; 86901; 86920; 87635; 93005; 94640; 96365; 96375; 99291

== ENCOUNTER 2020-09-04 13:13 | Emergency (ER) | payer MEDICARE ==
[2020-09-04 13:55] VITALS: BP 144/86; PULSE 86; RESP 20; TEMP 98
[2020-09-04] MEDS: HYDROmorphone 1 MG/ML 1 ML SYRINGE IM STA (14:46)
--- NOTE | 2020-09-04 14:46 | ED ---
Back Pain HPI - General Chief Complaint: Back Pain/Injury Stated Complaint: nerve pain R foot and almodovar Time Seen by Provider: 09/04/20 14:22 Source: patient Limitations: no limitations - History of Present Illness Initial Comments: 65-year-old female with history of chronic back pain presents to the emergency department with a chief complaint of back pain. States she had a spinal stimulator installed by Dr. Roper about [address] Rodriguez is maintaining the device. States the device. Working for the last several weeks because she does not receive any pain relief. States most of the pain is located in the right, paraspinal region of the lower sacrum that is radiating along the right lower extremity to the foot. States she has an appointment on September [address] Rodriguez. She also ran out of her hydrocodone due to increase of the pain. She denies any saddle anesthesia, urinary retention with overflow or bowel incontinence. Denies recent injury to the back. - Related Data Home Medications Medication Instructions Recorded Confirmed Levothyroxine Sodium [Synthroid] 88 mcg PO DAILY 08/09/13 05/15/20 Vortioxetine Hydrobromide 10 mg PO DAILY 11/04/15 05/15/20 [Trintellix] rOPINIRole HCL [Requip] 6 mg PO HS@2100 11/09/17 05/15/20 Esomeprazole Magnesium 40 mg PO DAILY 10/18/19 05/15/20 Hydrocodone/Acetaminophen [[place] 1 tab PO QID 10/18/19 05/15/20 7.5-325] Ipratropium-Albuterol Nebulize 3 ml INHALATION RT-QID PRN 12/17/19 05/15/20 [Duoneb 0.5 mg-3 mg/3 ml Soln] Metoprolol Succinate (ER) [Toprol 25 mg PO DAILY 12/17/19 05/15/20 XL] Potassium Chloride ER [K-Dur 20] 40 meq PO QID 12/17/19 05/15/20 Amitriptyline HCl [Elavil] 75 mg PO HS 05/15/20 05/15/20 Bumetanide [BUMEX] 1 mg PO BID 05/15/20 05/15/20 Cariprazine HCl [Vraylar] 1.5 mg PO DAILY 05/15/20 05/15/20 Diclofenac Potassium [Cataflam] 50 mg PO BID 05/15/20 05/15/20 Ergocalciferol [Vitamin D2 (1250 1,250 mcg PO RALPH 05/15/20 05/15/20 Mcg = 49553 Iu)] Furosemide [Lasix] 40 mg PO BID 05/15/20 05/15/20 Losartan [Cozaar] 25 mg PO DAILY 05/15/20 05/15/20 risperiDONE [RisperDAL] 2 mg PO DAILY 05/16/20 05/16/20 Previous Rx's Medication Instructions Recorded Atorvastatin [Lipitor] 40 mg PO HS #30 tab 10/20/19 Nitroglycerin Sl Tabs [Nitrostat] 0.4 mg SUBLINGUAL Q5M PRN #30 tab 10/20/19 Warfarin [Coumadin] 10 mg PO DAILY@1800 #10 tab 12/02/19 Topiramate [Topamax] 50 mg PO HS #1 tab 12/19/19 Gabapentin [Neurontin] 100 mg PO BID #6 cap 05/18/20 rOPINIRole HCL [Requip] 2 mg PO QAM #14 tab 05/18/20 Allergies Allergy/AdvReac Type Severity Reaction Status Date / Time cefprozil [From Cefzil] Allergy Unknown Verified 09/04/20 13:55 Sulfa (Sulfonamide Allergy Rash/Hives Verified 09/04/20 13:55 Antibiotics) valdecoxib [From Bextra] Allergy Unknown Verified 09/04/20 13:55 codeine AdvReac DIFFICULTY Verified 09/04/20 13:55 URINATING metaxalone [From Skelaxin] AdvReac Nausea & Verified 09/04/20 13:55 Vomiting Review of Systems ROS Statement: Those systems with pertinent positive or pertinent negative responses have been documented in the HPI. ROS Other: All systems not noted in ROS Statement are negative. Past Medical History Past Medical History: Asthma, Coronary Artery Disease (CAD), Chest Pain / Angina, Heart Failure, COPD, CVA/TIA, Deep Vein Thrombosis (DVT), Fibromyalgia, GERD/Reflux, GI Bleed, Hearing Disorder / Deafness, Hyperlipidemia, Hypertension, Memory Impairment, Myocardial Infarction (ND), Osteoarthritis (OA), Pneumonia, Pulmonary Embolus (PE), Respiratory Disorder, Seizure Disorder, Skin Disorder, Sleep Apnea/CPAP/BIPAP, Thyroid Disorder Additional Past Medical History / Comment(s): CVA with R sided weakness arm and leg and speech affected, tia, falls, pulmonary HTN, pleurisy, hypoxic respiratory failure/home oxygen 3L/NC ATC, BLANCO without device, 10/2019 takosubto syndrome, bilateral PEs, DVT R lung, last seizure 2017, gastric ulcer, hiatal hernia, upper/lower GI bleeds, IBS, benign polyps, anemia-past iron infusions, hypoglycemia, chronic low back pain, osteoporosis, myofascial pain syndrome, occipital neuralgia, migraines, RLS, hypothyroid, skin yeast infections, bilateral tinnitis. Alex-en-Y gastric bypass for morbid obesity Last Myocardial Infarction Date:: 2002 History of Any Multi-Drug Resistant Organisms: None Reported Past Surgical History: Bariatric Surgery, Hernia Repair, Hysterectomy, Joint Replacement, Orthopedic Surgery, Tubal Ligation Additional Past Surgical History / Comment(s): 10/19/19 PCI with stent, EGDs, colonoscopy/benign polyps, gastric bypass with revision, ventral and hiatal hernia repair, bladder suspension, R rotator curr repair/revision, L knee arthroscopy, rectocele, perinealplasty, lt shoulder replacement Past Anesthesia/Blood Transfusion Reactions: Motion Sickness Past Psychological History: Anxiety, Depression Smoking Status: Never smoker Past Alcohol Use History: Rare Past Drug Use History: None Reported - Past Family History Mother Family Medical History: Coronary Artery Disease (CAD), Eye Disorder Additional Family Medical History / Comment(s): Mother is 91 yrs old Father Family Medical History: Myocardial Infarction (ND) Additional Family Medical History / Comment(s): Father of a massive ND at the age of 53 yrs. Sister(s) Family Medical History: Cancer General Exam Limitations: no limitations General appearance: alert, in no apparent distress, obese Head exam: Present: atraumatic, normocephalic, normal inspection Eye exam: Present: normal appearance, PERRL, EOMI Pupils: Present: normal accommodation ENT exam: Present: normal exam, normal oropharynx, mucous membranes moist Neck exam: Present: normal inspection, full ROM. Absent: tenderness, lymphadenopathy Respiratory exam: Present: normal lung sounds bilaterally. Absent: respiratory distress, wheezes, rales, rhonchi, stridor, chest wall tenderness, accessory muscle use Cardiovascular Exam: Present: regular rate, normal rhythm, normal heart sounds. Absent: systolic murmur GI/Abdominal exam: Present: soft. Absent: distended, tenderness, guarding, rebound Extremities exam: Present: normal inspection, full ROM, normal capillary refill. Absent: tenderness, pedal edema, joint swelling Back exam: Present: normal inspection, full ROM, tenderness, paraspinal tenderness (Right paraspinal tenderness. Positive leg raise test right lower extremity). Absent: CVA tenderness (R), CVA tenderness (L), muscle spasm, vertebral tenderness Neurological exam: Present: alert, oriented X3 Psychiatric exam: Present: normal affect, normal mood Skin exam: Present: warm, dry, intact, normal color Course Vital Signs 09/04/20 13:51 Temperature 98.0 F Pulse Rate 86 Respiratory 20 Rate Blood Pressure 144/86 O2 Sat by Pulse 99 Oximetry Medical Decision Making - Medical Decision Making 65-year-old female with history of chronic back pain presents to the emergency department with a chief complaint of back pain. Physical examination reveals tenderness in the right paraspinal region. She was given Dilaudid for pain with improvement in symptoms. No concern for cauda equina. We'll be discharged with tramadol starter pack. Return parameters were discussed the patient is understanding and agreeable. She will follow-up with Dr. Rodriguez. Case discussed with Dr. Mason. Disposition Clinical Impression: Mechanical back pain Disposition: HOME SELF-CARE Condition: Stable Instructions (If sedation given, give patient instructions): Acute Low Back Pain (ED) Additional Instructions: Please return to the Emergency Department if symptoms worsen or any other concerns. Is patient prescribed a controlled substance at d/c from ED?: No Referrals: Edd Lee MD [Primary Care Provider] - 1-2 days Time of Disposition: 15:06
[2020-09-04] MEDS: traMADol 50 MG STARTER PACK 3 TAB BTL PO STA (15:28)
== END 2020-09-04 15:30 | disposition home or self-care (01) ==
LOC: EC 13:13
DX: M54.9 Dorsalgia, unspecified (principal); J44.9 Chronic obstructive pulmonary disease, unspecified; I25.10 Atherosclerotic heart disease of native coronary artery without angina pectoris; E78.5 Hyperlipidemia, unspecified; F32.9 Major depressive disorder, single episode, unspecified; G40.909 Epilepsy, unspecified, not intractable, without status epilepticus; G47.33 Obstructive sleep apnea (adult) (pediatric); I11.0 Hypertensive heart disease with heart failure; I25.2 Old myocardial infarction; I27.20 Pulmonary hypertension, unspecified; I50.9 Heart failure, unspecified; K21.9 Gastro-esophageal reflux disease without esophagitis; M19.90 Unspecified osteoarthritis, unspecified site; M79.7 Fibromyalgia; E07.9 Disorder of thyroid, unspecified; Z79.01 Long term (current) use of anticoagulants; Z86.711 Personal history of pulmonary embolism; Z86.718 Personal history of other venous thrombosis and embolism; Z86.73 Personal history of transient ischemic attack (TIA), and cerebral infarction without residual deficits; Z95.5 Presence of coronary angioplasty implant and graft; Z98.84 Bariatric surgery status; Z90.710 Acquired absence of both cervix and uterus; Z98.51 Tubal ligation status; Z99.81 Dependence on supplemental oxygen
CPT/HCPCS: 99283; 96372; J1170

== ENCOUNTER 2021-02-03 18:11 | Emergency (ER) | payer OTHER, MEDICARE ==
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
[2021-02-03] MEDS ORDERED: HYDROcodone/APAP 10-325MG 1 EACH TAB PO ONE (22:28)
[2021-02-03 22:39] VITALS: BP 119/73; PULSE 79; RESP 19; TEMP 98.1
== END 2021-02-03 22:39 | disposition home or self-care (01) ==
LOC: EC 18:11
DX: S20.212A Contusion of left front wall of thorax, initial encounter (principal); S70.12XA Contusion of left thigh, initial encounter; I11.0 Hypertensive heart disease with heart failure; I50.9 Heart failure, unspecified; I25.2 Old myocardial infarction; I25.10 Atherosclerotic heart disease of native coronary artery without angina pectoris; J44.9 Chronic obstructive pulmonary disease, unspecified; E78.5 Hyperlipidemia, unspecified; G40.909 Epilepsy, unspecified, not intractable, without status epilepticus; K21.9 Gastro-esophageal reflux disease without esophagitis; M19.90 Unspecified osteoarthritis, unspecified site; M79.7 Fibromyalgia; F32.9 Major depressive disorder, single episode, unspecified; F41.9 Anxiety disorder, unspecified; Z79.01 Long term (current) use of anticoagulants; Z79.899 Other long term (current) drug therapy; Z79.890 Hormone replacement therapy; Z79.51 Long term (current) use of inhaled steroids; Z88.2 Allergy status to sulfonamides; Z88.5 Allergy status to narcotic agent; Z95.5 Presence of coronary angioplasty implant and graft; Z86.73 Personal history of transient ischemic attack (TIA), and cerebral infarction without residual deficits; Z86.718 Personal history of other venous thrombosis and embolism; Z86.711 Personal history of pulmonary embolism; Z82.49 Family history of ischemic heart disease and other diseases of the circulatory system; V89.2XXA Person injured in unspecified motor-vehicle accident, traffic, initial encounter; Y92.410 Unspecified street and highway as the place of occurrence of the external cause
CPT/HCPCS: 99284

== ENCOUNTER 2021-02-07 10:12 | Emergency (ER) | payer OTHER, MEDICARE ==
[2021-02-07 10:16] VITALS: TEMP 97.5
[2021-02-07] MEDS ORDERED: HYDROmorphone 0.5 MG/0.5 ML SYRINGE IVP STA (10:37)
[2021-02-07] MEDS ORDERED: SODIUM CHLORIDE 0.9% 1,000 ML IV STA (10:37)
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
[2021-02-07 11:41] LABS: Basophils % (A) 0 %; Eosinophils # (A) 0.2 k/uL (0-0.7); Eosinophils % (A) 2 %; HCT 35.6 % (34.0-46.0); HGB 11.5 gm/dL (11.4-16.0); Lymphocytes % (A) 14 %; MCH 28.8 pg (25.0-35.0); MCHC 32.3 g/dL (31.0-37.0); MCV 88.9 fL (80.0-100.0); Mean Platelet Volume 6.9; Monocytes # (A) 0.4 k/uL (0-1.0); Monocytes % (A) 6 %; Neutrophils # (A) 5.5 k/uL (1.3-7.7); Neutrophils % (A) 76 %; Platelet Count 394 k/uL (150-450); RDW 14.1 % (11.5-15.5); WBC 7.3 k/uL (3.8-10.6)
[2021-02-07 11:52] LABS: ALT 16 U/L (4-34); AST 27 U/L (14-36); African American GFR (CKD) >90 (>60 ml/min/1.73 sqM); Albumin 3.6 g/dL (3.5-5.0); Alkaline Phosphatase 128 U/L (38-126); Anion Gap 5 mmol/L; Blood Urea Nitrogen 20 mg/dL (7-17); Calcium 9.1 mg/dL (8.4-10.2); Carbon Dioxide 25 mmol/L (22-30); Chloride 99 mmol/L (98-107); Glucose 100 mg/dL (74-99); Non-African American GFR(CKD) >90 (>60 ml/min/1.73 sqM); Potassium 5.3 mmol/L (3.5-5.1); Sodium 129 mmol/L (137-145); Total Bilirubin 0.4 mg/dL (0.2-1.3); Total Protein 6.5 g/dL (6.3-8.2)
--- NOTE | 2021-02-07 12:32 | CT ---
EXAMINATION TYPE: CT ChestAbdPelvis w con DATE OF EXAM: 02/07/2021 COMPARISON: 10/18/2019 HISTORY: generalized rib pain, generalized abdominal pain CT DLP: 2713.6 mGycm Automated exposure control for dose reduction was used. CONTRAST: CT scan of the chest, abdomen and pelvis is performed without Oral Contrast and with IV Contrast, pat ient injected with 100 mL of Isovue 370. FINDINGS: LUNGS: Groundglass changes seen in the anterior margin of the left lower lobe.. There is no pleural effusion or pneumothorax seen. The tracheobronchial tree is patent. MEDIASTINUM: There are no greater than 1 cm hilar or mediastinal lymph nodes. Heart is mildly enlarge d. Aorta of normal caliber. Mild atherosclerotic change of the aorta. Coronary artery calcification n oted. OTHER: No additional significant abnormality is seen. LIVER/GB: No significant abnormality is appreciated. PANCREAS: No significant abnormality is seen. SPLEEN: No significant abnormality is seen. ADRENALS: No significant abnormality is seen. KIDNEYS: No significant abnormality is seen. BOWEL: Postsurgical change involving the stomach. There is fatty replacement of the wall the stomach. Mild ill definition of fat near the GE junction could be related to gastritis or active inflammatory process correlate clinically. Extensive retained fecal debris throughout portions of the colon. No diagnostic evidence of obstructi on. Appendix not seen with certainty.. LYMPH NODES: No greater than 1 cm abdominal or pelvic lymph nodes are appreciated. OSSEOUS STRUCTURES: Hypertrophic and degenerative changes spine. Appears to be a catheter within the spinal canal the thoracic spine possibly related to stimulator device. Mild wedge deformities appear chronic in the midthoracic region. Severe multilevel degenerative disc disease. Canal stenosis [place] correlate with MRI as clinically warranted.. Arthropathy of the hips. Within the left anterior rib cage the approximate level of the left seventh and eighth ribs findings are suspicious for hairline fracture. Correlate with point tenderness. OTHER: Atherosclerotic change aorta. No aneurysm is suggestion of previous surgery involving the ante rior abdominal wall. Bladder distends normally. Soft tissue calcifications nonspecific IMPRESSION: 1. Groundglass changes left lower lobe correlate for pneumonitis or atelectasis. Correlate with point tenderness for mildly displaced hairline fracture anterolateral left seventh and eighth ribs. 2. Coronary artery calcification. 3. Postsurgical change involving the stomach with fatty replacement of the wall the stomach. There is mild ill definition the epigastric region adjacent to the stomach could represent mild gastritis cor relate clinically with direct visualization as clinically warranted and to exclude other etiologies 4. Correlate for constipation.
[2021-02-07 14:09] VITALS: BP 159/89; PULSE 67; RESP 18
== END 2021-02-07 13:32 | disposition home or self-care (01) ==
LOC: EC 10:12
DX: S22.42XA Multiple fractures of ribs, left side, initial encounter for closed fracture (principal); I11.0 Hypertensive heart disease with heart failure; I50.9 Heart failure, unspecified; J44.9 Chronic obstructive pulmonary disease, unspecified; K21.9 Gastro-esophageal reflux disease without esophagitis; M19.90 Unspecified osteoarthritis, unspecified site; M79.7 Fibromyalgia; I25.2 Old myocardial infarction; I25.10 Atherosclerotic heart disease of native coronary artery without angina pectoris; G40.909 Epilepsy, unspecified, not intractable, without status epilepticus; E78.5 Hyperlipidemia, unspecified; F32.9 Major depressive disorder, single episode, unspecified; F41.9 Anxiety disorder, unspecified; Z79.890 Hormone replacement therapy; Z79.01 Long term (current) use of anticoagulants; Z79.899 Other long term (current) drug therapy; Z82.49 Family history of ischemic heart disease and other diseases of the circulatory system; Z86.711 Personal history of pulmonary embolism; Z86.718 Personal history of other venous thrombosis and embolism; Z86.73 Personal history of transient ischemic attack (TIA), and cerebral infarction without residual deficits; Z88.2 Allergy status to sulfonamides; Z88.5 Allergy status to narcotic agent; Z95.5 Presence of coronary angioplasty implant and graft; V43.52XA Car driver injured in collision with other type car in traffic accident, initial encounter; Y92.410 Unspecified street and highway as the place of occurrence of the external cause
CPT/HCPCS: 36415; 80053; 85025; 71260; 74177; 99284; 96374; 96361; J1170; Q9967

== ENCOUNTER 2021-05-11 15:24 | Emergency (ER) | payer MEDICARE ==
[2021-05-11] MEDS ORDERED: HYDROcodone/APAP 5-325MG 1 EACH TAB PO STA (16:24)
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
--- NOTE | 2021-05-11 18:16 | CT ---
EXAMINATION TYPE: CT brain cspine wo con, CT facial bones wo con DATE OF EXAM: 05/11/2021 COMPARISON: Prior trauma CT very 03/22/2021 HISTORY: Injury fall with headache, right-sided facial pain, the end neck pain. CT DLP: 1347.6 mGycm. Automated Exposure Control for Dose Reduction was Utilized. TECHNIQUE: CT scan of the head , facial bones, and cervical spine are performed without contrast. FINDINGS: There is no acute intracranial hemorrhage, mass effect, or midline shift identified. The ventricles and sulci are within normal limits in size for patient's age. Xie-white matter different iation is maintained. The calvarium is intact. The mandible is intact. Temporomandibular joints are maintained bilaterally. The zygomatic arches are intact. Nasal bones are intact. Orbital floors and figueroa are intact. The globes are intact bilateral ly. Intraconal fat is preserved. Visualized paranasal sinuses are grossly clear. Asymmetric low dense lesion in front of right masseter muscles could reflect accessory muscle or small hematoma axial marcie ge [id number]. Cervical spine is visualized in its entirety from C1 through upper thoracic levels and redemonstrates grade 1 retrolisthesis C3 on C4 with moderate to advanced disc space narrowing at this level without evidence of acute fracture or dislocation. Mild to moderate disc space narrowing C5-C6 level redemo nstrated. Prevertebral soft tissue appears within normal limits. The C1-C2 articulation is within no rmal limits on the coronal images. Evaluation limited by patient's large body habitus. Spinal canal grossly preserved. Axial images show no apical pneumothorax bilaterally. IMPRESSION: 1. There is no acute fracture or dislocation evident in the cervical spine. 2. No acute intracranial hemorrhage or midline shift is seen. 3. No acute displaced facial bone fracture.
[2021-05-11 18:55] VITALS: BP 187/92; PULSE 76; RESP 20; TEMP 98.1
== END 2021-05-11 18:55 | disposition home or self-care (01) ==
LOC: EC 15:24
DX: S00.83XA Contusion of other part of head, initial encounter (principal); J45.909 Unspecified asthma, uncomplicated; I11.0 Hypertensive heart disease with heart failure; I50.9 Heart failure, unspecified; I25.10 Atherosclerotic heart disease of native coronary artery without angina pectoris; M79.7 Fibromyalgia; K21.9 Gastro-esophageal reflux disease without esophagitis; E78.5 Hyperlipidemia, unspecified; I25.2 Old myocardial infarction; M19.90 Unspecified osteoarthritis, unspecified site; E07.9 Disorder of thyroid, unspecified; F41.9 Anxiety disorder, unspecified; F32.A Depression, unspecified; Z79.01 Long term (current) use of anticoagulants; Z88.1 Allergy status to other antibiotic agents; Z88.2 Allergy status to sulfonamides; Z88.5 Allergy status to narcotic agent; Z86.73 Personal history of transient ischemic attack (TIA), and cerebral infarction without residual deficits; Z86.718 Personal history of other venous thrombosis and embolism; Z86.711 Personal history of pulmonary embolism; Z98.84 Bariatric surgery status; Z90.710 Acquired absence of both cervix and uterus; Z98.51 Tubal ligation status; W22.8XXA Striking against or struck by other objects, initial encounter
CPT/HCPCS: 70450; 70486; 72125; 99284

== ENCOUNTER 2021-08-31 13:56 | Emergency (ER) | payer MEDICARE ==
[2021-08-31 14:21] VITALS: BP 132/77; PULSE 79; RESP 20; TEMP 98.3
--- NOTE | 2021-08-31 15:21 | XR ---
EXAMINATION TYPE: XR foot complete RT DATE OF EXAM: 08/31/2021 CLINICAL HISTORY: Pain and swelling after stepping injury yesterday. TECHNIQUE: Frontal, lateral, and oblique images of the right foot are obtained. COMPARISON: Right foot x-ray dated 12/30/2018. FINDINGS: Osseous structures are demineralized. Moderate size inferior calcaneal spur redemonstrated. No suspicious radiodense foreign body along the plantar surface. No acute displaced fracture. Latera l subluxation first metatarsophalangeal joint with hallux valgus positioning and moderate to severe n arrowing. Marked flexion in the second toe. Moderate to severe spurring and subchondral cystic change at the midfoot level more prominent from prior with dorsal surface 1.0 cm old fractured osteophyte. Mild to moderate diffuse subcutaneous edema soft tissue swelling is seen. IMPRESSION: As above. No acute fracture is evident.
[2021-08-31] MEDS ORDERED: DIPH,PERTUS(ACELL)TETVAC-LF 0.5 ML VIAL IM ONE (15:44)
--- NOTE | 2021-08-31 15:57 | ED ---
General Adult HPI - General Chief complaint: Extremity Injury, Lower Stated complaint: foot issues Time Seen by Provider: 08/31/21 15:35 Source: patient, RN notes reviewed, old records reviewed Mode of arrival: wheelchair Limitations: no limitations - History of Present Illness Initial comments: This is a pleasant 66-year-old female that presents to the emergency room with complaints of stepping on something in the yard with bare feet last night. She states that she is unable to visualize the bottom of her foot, does not know what she could've stepped on. She denies any fevers, no nausea,vomiting or diarrhea. She is able to ambulate but states it hurts to walk on. She states that her tetanus shot is not up-to-date. -: days(s) (1) Location: right, lower extremity (foot plantar surface) Quality: sharp, constant Consistency: constant Improves with: immobilization Worsens with: movement Associated Symptoms: denies other symptoms Treatments Prior to Arrival: none - Related Data Home Medications Medication Instructions Recorded Confirmed Levothyroxine Sodium [Synthroid] 88 mcg PO DAILY 08/09/13 05/15/20 Vortioxetine Hydrobromide 10 mg PO DAILY 11/04/15 05/15/20 [Trintellix] rOPINIRole HCL [Requip] 6 mg PO HS@2100 11/09/17 05/15/20 Esomeprazole Magnesium 40 mg PO DAILY 10/18/19 05/15/20 Hydrocodone/Acetaminophen [[place] 1 tab PO QID 10/18/19 05/15/20 7.5-325] Ipratropium-Albuterol Nebulize 3 ml INHALATION RT-QID PRN 12/17/19 05/15/20 [Duoneb 0.5 mg-3 mg/3 ml Soln] Metoprolol Succinate (ER) [Toprol 25 mg PO DAILY 12/17/19 05/15/20 XL] Potassium Chloride ER [K-Dur 20] 40 meq PO QID 12/17/19 05/15/20 Amitriptyline HCl [Elavil] 75 mg PO HS 05/15/20 05/15/20 Bumetanide [BUMEX] 1 mg PO BID 05/15/20 05/15/20 Cariprazine HCl [Vraylar] 1.5 mg PO DAILY 05/15/20 05/15/20 Diclofenac Potassium [Cataflam] 50 mg PO BID 05/15/20 05/15/20 Ergocalciferol [Vitamin D2 (1250 1,250 mcg PO RALPH 05/15/20 05/15/20 Mcg = 55068 Iu)] Furosemide [Lasix] 40 mg PO BID 05/15/20 05/15/20 Losartan [Cozaar] 25 mg PO DAILY 05/15/20 05/15/20 risperiDONE [RisperDAL] 2 mg PO DAILY 05/16/20 05/16/20 Previous Rx's Medication Instructions Recorded Atorvastatin [Lipitor] 40 mg PO HS #30 tab 10/20/19 Nitroglycerin Sl Tabs [Nitrostat] 0.4 mg SUBLINGUAL Q5M PRN #30 tab 10/20/19 Warfarin [Coumadin] 10 mg PO DAILY@1800 #10 tab 12/02/19 Topiramate [Topamax] 50 mg PO HS #1 tab 12/19/19 Gabapentin [Neurontin] 100 mg PO BID #6 cap 05/18/20 rOPINIRole HCL [Requip] 2 mg PO QAM #14 tab 05/18/20 Cephalexin [Keflex] 500 mg PO Q6HR 5 Days #20 cap 08/31/21 Allergies Allergy/AdvReac Type Severity Reaction Status Date / Time cefprozil [From Cefzil] Allergy Unknown Verified 08/31/21 14:21 hydrocodone [From Vicodin] Allergy Unknown Verified 08/31/21 14:21 Sulfa (Sulfonamide Allergy Rash/Hives Verified 08/31/21 14:21 Antibiotics) valdecoxib [From Bextra] Allergy Unknown Verified 08/31/21 14:21 codeine AdvReac DIFFICULTY Verified 08/31/21 14:21 URINATING metaxalone [From Skelaxin] AdvReac Nausea & Verified 08/31/21 14:21 Vomiting Review of Systems ROS Statement: Those systems with pertinent positive or pertinent negative responses have been documented in the HPI. ROS Other: All systems not noted in ROS Statement are negative. 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 Alex-en-Y gastric bypass for morbid obesity Last Myocardial Infarction Date:: 2002 History of Any Multi-Drug Resistant Organisms: None Reported Past Surgical History: Bariatric Surgery, Hernia Repair, Hysterectomy, Joint Replacement, Orthopedic Surgery, Tubal Ligation Additional Past Surgical History / Comment(s): 10/19/19 PCI with stent, EGDs, colonoscopy/benign polyps, gastric bypass with revision, ventral and hiatal hernia repair, bladder suspension, R rotator curr repair/revision, L knee arthroscopy, rectocele, perinealplasty, lt shoulder replacement Past Anesthesia/Blood Transfusion Reactions: Motion Sickness Past Psychological History: Anxiety, Depression Smoking Status: Never smoker Past Alcohol Use History: Rare Past Drug Use History: None Reported - Past Family History Mother Family Medical History: Coronary Artery Disease (CAD), Eye Disorder Additional Family Medical History / Comment(s): Mother is 91 yrs old Father Family Medical History: Myocardial Infarction (PR) Additional Family Medical History / Comment(s): Father of a massive PR at the age of 53 yrs. Sister(s) Family Medical History: Cancer General Exam Limitations: no limitations General appearance: alert, in no apparent distress Respiratory exam: Absent: respiratory distress, accessory muscle use Cardiovascular Exam: Present: regular rate Right Foot/Toe exam: Present: erythema, puncture wound (Mid foot plantar surface lateral side ). Absent: foreign body Neurovascular tendon exam: Present: no vascular compromise. Absent: abnormal cap refill, pallor, foot drop Neurological exam: Present: alert, oriented X3 Psychiatric exam: Present: normal affect, normal mood Skin exam: Present: warm, dry. Absent: cyanosis, diaphoretic, petechiae, pallor Course Vital Signs 08/31/21 14:19 Temperature 98.3 F Pulse Rate 79 Respiratory 20 Rate Blood Pressure 132/77 O2 Sat by Pulse 96 Oximetry Procedures - Incision & Drainage Consent Obtained: verbal consent Site: foot (right plantar surface) I&D Cleaning Method: Betadine Scalpel Used: #11 Culture Obtained?: No Patient Tolerated Procedure: well, no complications (No purulence, blood or foreign body obtained) Medical Decision Making - Medical Decision Making Patient presents to the emergency room after stepping on something in the lawn yesterday evening. X-ray shows mild to moderate diffuse subcutaneous edema and soft tissue swelling. No acute fractures evident. There is a .5cm area of induration with surrounding erythema and tenderness. I attempted an incision and drainage, no purulence or foreign body noted. The patient's tetanus was updated and she was placed on antibiotics and directed to soak foot in warm soapy water 3 times a day for 15 minutes. I advised her to follow up with her primary care doctor this week. Return to the emergency room with any new or concerning symptoms including increased pain, swelling or fevers. Case discussed with Dr. Owens Disposition Clinical Impression: Puncture wound of foot Disposition: HOME SELF-CARE Condition: Good Instructions (If sedation given, give patient instructions): Puncture Wound in the Foot (ED) Additional Instructions: Soak foot in warm soapy water for 15 minutes 3-4 times a day. Take antibiotics as prescribed and follow-up with your primary care doctor this week. Return to the emergency room with any new or concerning symptoms including increased pain, swelling or fevers. Prescriptions: Cephalexin [Keflex] 500 mg PO Q6HR 5 Days #20 cap Is patient prescribed a controlled substance at d/c from ED?: No Referrals: Edd Lee MD [Primary Care Provider] - 1-2 days Time of Disposition: 15:57
[2021-08-31] MEDS ORDERED: BACITRACIN OINT 1 EACH PACKET TOPICAL ONE (16:13)
== END 2021-08-31 16:21 | disposition home or self-care (01) ==
LOC: EC 13:56
DX: S91.331A Puncture wound without foreign body, right foot, initial encounter (principal); I11.0 Hypertensive heart disease with heart failure; I50.9 Heart failure, unspecified; I25.2 Old myocardial infarction; I25.10 Atherosclerotic heart disease of native coronary artery without angina pectoris; J44.9 Chronic obstructive pulmonary disease, unspecified; K21.9 Gastro-esophageal reflux disease without esophagitis; M19.90 Unspecified osteoarthritis, unspecified site; M79.7 Fibromyalgia; E78.5 Hyperlipidemia, unspecified; F32.A Depression, unspecified; F41.9 Anxiety disorder, unspecified; E03.9 Hypothyroidism, unspecified; G40.909 Epilepsy, unspecified, not intractable, without status epilepticus; Z86.711 Personal history of pulmonary embolism; Z86.718 Personal history of other venous thrombosis and embolism; Z86.73 Personal history of transient ischemic attack (TIA), and cerebral infarction without residual deficits; Z79.01 Long term (current) use of anticoagulants; Z79.890 Hormone replacement therapy; Z79.899 Other long term (current) drug therapy; Z95.5 Presence of coronary angioplasty implant and graft; Z88.5 Allergy status to narcotic agent; Z88.2 Allergy status to sulfonamides; Z23 Encounter for immunization; W26.8XXA Contact with other sharp object(s), not elsewhere classified, initial encounter; Y92.096 Garden or yard of other non-institutional residence as the place of occurrence of the external cause
CPT/HCPCS: 90471; 90715; 99283

== ENCOUNTER → 2021-12-16 | Outpatient (CLI) | payer MEDICARE ==
--- NOTE | 2021-12-16 22:01 | CT ---
EXAMINATION TYPE: CT shoulder LT wo con DATE OF EXAM: 12/16/2021 COMPARISON: None HISTORY: Lt shoulder pain CT DLP: 487 mGycm Automated exposure control for dose reduction was used. Images obtained from the top of the shoulder to the mid shaft of the humerus without contrast. There is left shoulder prosthesis with metal artifact. Components appear in anatomic position. There is widening of the AC joint space. There is no focal bone destruction. The scapula appears intact. Th e left upper ribs appear intact. Proximal humerus is intact. No evidence of a soft tissue mass. No pa thologic fluid collection. IMPRESSION: Left shoulder prosthesis appears in good position. No fracture seen. Cam limited by metal artifact an d patient's large size.
== END | disposition home or self-care (01) ==
LOC: RADCTMAIN 06:46
PROVIDERS: ATTEND Orthopaedic Surgery
DX: M25.512 Pain in left shoulder (principal); Z47.1 Aftercare following joint replacement surgery; Z96.612 Presence of left artificial shoulder joint

== ENCOUNTER 2022-01-07 07:32 | Inpatient (IN) | payer MEDICARE ==
[2022-01-07] MEDS ORDERED: ALBUTEROL NEBULIZED 2.5 MG/3 ML INHALATION STA (07:44)
[2022-01-07] MEDS ORDERED: IPRATROPIUM 0.5 MG/2.5 ML NEBU INHALATION STA (07:44)
[2022-01-07] MEDS ORDERED: methylPREDNISolone SOD SUCCI 125 MG/2 ML VIAL IV STA (07:44)
--- NOTE | 2022-01-07 08:00 | ED ---
General Adult HPI - General Chief complaint: Shortness of Breath Stated complaint: SOB Time Seen by Provider: 01/07/22 07:35 Source: patient, RN notes reviewed, old records reviewed Mode of arrival: EMS Limitations: no limitations - History of Present Illness Initial comments: This is a 66-year-old female with a past medical history significant for COPD and congestive heart.. Patient states she's been around her daughter grandson and they have both had upper respiratory infection. Patient states she started having some shortness of breath last evening when she woke up this morning or shortness of breath was worse. Patient states she is coughing and coughing up some sputum. Patient denies any chest pain or palpitations. Patient denies any fever chills. Patient denies any abdominal pain patient denies nausea vomiting diarrhea. Patient denies lightheadedness or dizziness. Patient denies any swelling to the legs or calf tenderness. - Related Data Home Medications Medication Instructions Recorded Confirmed rOPINIRole HCL [Requip] 6 mg PO HS 11/09/17 01/07/22 Hydrocodone/Acetaminophen [[place] 1 tab PO QID PRN 10/18/19 01/07/22 7.5-325] Diclofenac Potassium [Cataflam] 50 mg PO BID 05/15/20 01/07/22 ARIPiprazole [Abilify] 5 mg PO HS 01/07/22 01/07/22 Amitriptyline HCl [Elavil] 100 mg PO HS 01/07/22 01/07/22 Apixaban [Eliquis] 5 mg PO BID 01/07/22 01/07/22 Atorvastatin [Lipitor] 20 mg PO HS 01/07/22 01/07/22 Cyclobenzaprine [Flexeril] 5 mg PO BID PRN 01/07/22 01/07/22 Gabapentin [Neurontin] 800 mg PO TID 01/07/22 01/07/22 Topiramate [Topamax] 200 mg PO DAILY 01/07/22 01/07/22 Vortioxetine Hydrobromide 20 mg PO HS 01/07/22 01/07/22 [Trintellix] buPROPion XL [Wellbutrin XL] 300 mg PO DAILY 01/07/22 01/07/22 hydrOXYzine pamoate [Vistaril] 50 mg PO TID PRN 01/07/22 01/07/22 rOPINIRole HCL [Requip] 1 mg PO BID PRN 01/07/22 01/07/22 Allergies Allergy/AdvReac Type Severity Reaction Status Date / Time cefprozil [From Cefzil] Allergy Unknown Verified 01/07/22 10:31 Sulfa (Sulfonamide Allergy Rash/Hives Verified 01/07/22 10:31 Antibiotics) valdecoxib [From Bextra] Allergy Unknown Verified 01/07/22 10:31 codeine AdvReac DIFFICULTY Verified 01/07/22 10:31 URINATING metaxalone [From Skelaxin] AdvReac Nausea & Verified 01/07/22 10:31 Vomiting Review of Systems ROS Statement: Those systems with pertinent positive or pertinent negative responses have been documented in the HPI. ROS Other: All systems not noted in ROS Statement are negative. 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 Alex-en-Y gastric bypass for morbid obesity Last Myocardial Infarction Date:: 2002 History of Any Multi-Drug Resistant Organisms: None Reported Past Surgical History: Bariatric Surgery, Hernia Repair, Hysterectomy, Joint Replacement, Orthopedic Surgery, Tubal Ligation Additional Past Surgical History / Comment(s): 10/19/19 PCI with stent, EGDs, colonoscopy/benign polyps, gastric bypass with revision, ventral and hiatal hernia repair, bladder suspension, R rotator curr repair/revision, L knee arthroscopy, rectocele, perinealplasty, lt shoulder replacement Past Anesthesia/Blood Transfusion Reactions: Motion Sickness Past Psychological History: Anxiety, Depression Smoking Status: Never smoker Past Alcohol Use History: Rare Past Drug Use History: None Reported - Past Family History Mother Family Medical History: Coronary Artery Disease (CAD), Eye Disorder Additional Family Medical History / Comment(s): Mother is 91 yrs old Father Family Medical History: Myocardial Infarction ([place]) Additional Family Medical History / Comment(s): Father of a massive [place] at the age of 53 yrs. Sister(s) Family Medical History: Cancer General Exam - General Exam Comments Initial Comments: GENERAL: Patient is well-developed and well-nourished. Patient is nontoxic and well- hydrated and is in mild distress. ENT: Neck is soft and supple. No significant lymphadenopathy is noted. Oropharynx is clear. Moist mucous membranes. Neck has full range of motion without eliciting any pain. EYES: The sclera were anicteric and conjunctiva were pink and moist. Extraocular movements were intact and pupils were equal round and reactive to light. Ey elids were unremarkable. PULMONARY: Unlabored respirations. Good breath sounds bilaterally. Patient has slight expiratory wheezing. Patient has a croupy sounding cough when she coughs really hard. Patient was oxygenating at 100% on room air CARDIOVASCULAR: There is a regular rate and rhythm without any murmurs gallops or rubs. ABDOMEN: Soft and nontender with normal bowel sounds. SKIN: Skin is clear with no lesions or rashes and otherwise unremarkable. NEUROLOGIC: Patient is alert and oriented x3. Cranial nerves II through XII are grossly intact. Motor and sensory are also intact. Normal speech, volume and content. Symmetrical smile. MUSCULOSKELETAL: Normal extremities with adequate strength and full range of motion. LYMPHATICS: No significant lymphadenopathy is noted PSYCHIATRIC: Normal psychiatric evaluation. Limitations: no limitations Course Vital Signs 01/07/22 01/07/22 01/07/22 07:33 08:23 08:43 Temperature 98.2 F Pulse Rate 93 80 84 Respiratory 24 Rate Blood Pressure 203/132 O2 Sat by Pulse 100 Oximetry 01/07/22 01/07/22 09:26 09:27 Temperature Pulse Rate 76 Respiratory 22 28 H Rate Blood Pressure 136/83 O2 Sat by Pulse 100 Oximetry Medical Decision Making - Medical Decision Making EKG shows sinus rhythm with occasional PAC at 70 bpm PA interval is 204 QRS is 90 QT interval 361 QTC is 395. Patient's EKG shows no ST segment elevation or depression. Chest x-ray shows narrowed supraglottic airway. Patient received steroids multiple breathing treatments in the emergency department and was feeling better but she still had a significantly stridorous cough [facility] and the patient wrote admitting orders. - Lab Data Result diagrams: 01/07/22 09:15 01/07/22 09:15 Lab Results 01/07/22 01/07/22 01/07/22 Range/Units 08:15 08:15 09:15 WBC 11.0 H (3.8-10.6) k/uL RBC 3.78 L (3.80-5.40) m/uL Hgb 9.8 L (11.4-16.0) gm/dL Hct 32.1 L (34.0-46.0) % MCV 84.8 (80.0-100.0) fL MCH 25.9 (25.0-35.0) pg MCHC 30.5 L (31.0-37.0) g/dL RDW 14.9 (11.5-15.5) % Plt Count 362 (150-450) k/uL MPV 7.2 Neutrophils % 75 % Lymphocytes % 15 % Monocytes % 5 % Eosinophils % 3 % Basophils % 0 % Neutrophils # 8.2 H (1.3-7.7) k/uL Lymphocytes # 1.6 (1.0-4.8) k/uL Monocytes # 0.6 (0-1.0) k/uL Eosinophils # 0.4 (0-0.7) k/uL Basophils # 0.0 (0-0.2) k/uL Hypochromasia Marked PT (9.0-12.0) sec INR (<1.2) APTT (22.0-30.0) sec Sodium (137-145) mmol/L Potassium (3.5-5.1) mmol/L Chloride (98-107) mmol/L Carbon Dioxide (22-30) mmol/L Anion Gap mmol/L BUN (7-17) mg/dL Creatinine (0.52-1.04) mg/dL Est GFR (CKD-EPI)AfAm (>60 ml/min/1.73 sqM) Est GFR (CKD-EPI)NonAf (>60 ml/min/1.73 sqM) Glucose (74-99) mg/dL Plasma Lactic Acid Steve (0.7-2.0) mmol/L Calcium (8.4-10.2) mg/dL Magnesium (1.6-2.3) mg/dL Total Bilirubin (0.2-1.3) mg/dL AST (14-36) U/L ALT (4-34) U/L Alkaline Phosphatase (38-126) U/L Troponin I (0.000-0.034) ng/mL NT-Pro-B Natriuret Pep pg/mL Total Protein (6.3-8.2) g/dL Albumin (3.5-5.0) g/dL Coronavirus (PCR) Not Detected (Not Detectd) RSV (PCR) Negative (Negative) 01/07/22 01/07/22 01/07/22 Range/Units 09:15 09:15 09:15 WBC (3.8-10.6) k/uL RBC (3.80-5.40) m/uL Hgb (11.4-16.0) gm/dL Hct (34.0-46.0) % MCV (80.0-100.0) fL MCH (25.0-35.0) pg MCHC (31.0-37.0) g/dL RDW (11.5-15.5) % Plt Count (150-450) k/uL MPV Neutrophils % % Lymphocytes % % Monocytes % % Eosinophils % % Basophils % % Neutrophils # (1.3-7.7) k/uL Lymphocytes # (1.0-4.8) k/uL Monocytes # (0-1.0) k/uL Eosinophils # (0-0.7) k/uL Basophils # (0-0.2) k/uL Hypochromasia PT 9.4 (9.0-12.0) sec INR 0.8 (<1.2) APTT 19.3 L (22.0-30.0) sec Sodium 139 (137-145) mmol/L Potassium 4.4 (3.5-5.1) mmol/L Chloride 110 H (98-107) mmol/L Carbon Dioxide 19 L (22-30) mmol/L Anion Gap 10 mmol/L BUN 16 (7-17) mg/dL Creatinine 0.62 (0.52-1.04) mg/dL Est GFR (CKD-EPI)AfAm >90 (>60 ml/min/1.73 sqM) Est GFR (CKD-EPI)NonAf >90 (>60 ml/min/1.73 sqM) Glucose 104 H (74-99) mg/dL Plasma Lactic Acid Steve (0.7-2.0) mmol/L Calcium 8.5 (8.4-10.2) mg/dL Magnesium 2.2 (1.6-2.3) mg/dL Total Bilirubin 0.5 (0.2-1.3) mg/dL AST 23 (14-36) U/L ALT 14 (4-34) U/L Alkaline Phosphatase 150 H (38-126) U/L Troponin I <0.012 (0.000-0.034) ng/mL NT-Pro-B Natriuret Pep pg/mL Total Protein 6.3 (6.3-8.2) g/dL Albumin 3.7 (3.5-5.0) g/dL Coronavirus (PCR) (Not Detectd) RSV (PCR) (Negative) 01/07/22 01/07/22 Range/Units 09:15 09:19 WBC (3.8-10.6) k/uL RBC (3.80-5.40) m/uL Hgb (11.4-16.0) gm/dL Hct (34.0-46.0) % MCV (80.0-100.0) fL MCH (25.0-35.0) pg MCHC (31.0-37.0) g/dL RDW (11.5-15.5) % Plt Count (150-450) k/uL MPV Neutrophils % % Lymphocytes % % Monocytes % % Eosinophils % % Basophils % % Neutrophils # (1.3-7.7) k/uL Lymphocytes # (1.0-4.8) k/uL Monocytes # (0-1.0) k/uL Eosinophils # (0-0.7) k/uL Basophils # (0-0.2) k/uL Hypochromasia PT (9.0-12.0) sec INR (<1.2) APTT (22.0-30.0) sec Sodium (137-145) mmol/L Potassium (3.5-5.1) mmol/L Chloride (98-107) mmol/L Carbon Dioxide (22-30) mmol/L Anion Gap mmol/L BUN (7-17) mg/dL Creatinine (0.52-1.04) mg/dL Est GFR (CKD-EPI)AfAm (>60 ml/min/1.73 sqM) Est GFR (CKD-EPI)NonAf (>60 ml/min/1.73 sqM) Glucose (74-99) mg/dL Plasma Lactic Acid Steve 0.7 (0.7-2.0) mmol/L Calcium (8.4-10.2) mg/dL Magnesium (1.6-2.3) mg/dL Total Bilirubin (0.2-1.3) mg/dL AST (14-36) U/L ALT (4-34) U/L Alkaline Phosphatase (38-126) U/L Troponin I (0.000-0.034) ng/mL NT-Pro-B Natriuret Pep 341 pg/mL Total Protein (6.3-8.2) g/dL Albumin (3.5-5.0) g/dL Coronavirus (PCR) (Not Detectd) RSV (PCR) (Negative) Disposition Clinical Impression: Expiratory stridor, Dyspnea Disposition: ADMITTED IP TO THIS HOSP Referrals: Edd Lee MD [Primary Care Provider] - 1-2 days Time of Disposition: 10:51
[2022-01-07 09:32] LABS: Basophils % (A) 0 %; Eosinophils # (A) 0.4 k/uL (0-0.7); Eosinophils % (A) 3 %; HCT 32.1 % (34.0-46.0); HGB 9.8 gm/dL (11.4-16.0); Hypochromasia Marked; Lymphocytes # (A) 1.6 k/uL (1.0-4.8); Lymphocytes % (A) 15 %; MCH 25.9 pg (25.0-35.0); MCHC 30.5 g/dL (31.0-37.0); MCV 84.8 fL (80.0-100.0); Mean Platelet Volume 7.2; Monocytes # (A) 0.6 k/uL (0-1.0); Monocytes % (A) 5 %; Neutrophils # (A) 8.2 k/uL (1.3-7.7); Neutrophils % (A) 75 %; Platelet Count 362 k/uL (150-450); RBC 3.78 m/uL (3.80-5.40); RDW 14.9 % (11.5-15.5)
--- NOTE | 2022-01-07 09:39 | XR ---
EXAMINATION TYPE: XR chest 2V DATE OF EXAM: 01/07/2022 COMPARISON: 02/03/2021 INDICATION: Barking cough, upper respiratory tract infection TECHNIQUE: Frontal and lateral views of the chest are obtained. FINDINGS: The heart size is normal. The pulmonary vasculature is normal. The lungs are clear. There may be some steepling of the subglottic airway. Consider croup within the differential. IMPRESSION: 1. There may be some steepling of the subglottic airway which can be associated with croup. 2. Suspicious lung consolidation is not identified. Follow up exams can be performed as clinically in dicated.
[2022-01-07 09:49] LABS: ALT 14 U/L (4-34); AST 23 U/L (14-36); African American GFR (CKD) >90 (>60 ml/min/1.73 sqM); Albumin 3.7 g/dL (3.5-5.0); Alkaline Phosphatase 150 U/L (38-126); Anion Gap 10 mmol/L; Blood Urea Nitrogen 16 mg/dL (7-17); Calcium 8.5 mg/dL (8.4-10.2); Carbon Dioxide 19 mmol/L (22-30); Chloride 110 mmol/L (98-107); Glucose 104 mg/dL (74-99); Magnesium 2.2 mg/dL (1.6-2.3); Non-African American GFR(CKD) >90 (>60 ml/min/1.73 sqM); Potassium 4.4 mmol/L (3.5-5.1); Sodium 139 mmol/L (137-145); Total Bilirubin 0.5 mg/dL (0.2-1.3); Total Protein 6.3 g/dL (6.3-8.2)
[2022-01-07 09:51] LABS: INR 0.8 (<1.2); Prothrombin Time 9.4 sec (9.0-12.0)
[2022-01-07 09:58] LABS: Partial Thromboplastin Time 19.3 sec (22.0-30.0)
[2022-01-07] MEDS: IPRATROPIUM-ALBUTEROL 3 ML NEB INHALATION SCH ×4 (11:13→23:30)
--- NOTE | 2022-01-07 13:52 | P.HPIM ---
History of Present Illness H&P Date: 01/07/22 History of present illness; patient is a 66-year-old lady with past medical history significant for COPD, CHF presented to the ER because of cough and shortness of breath for the last 3 days. Patient stated that she started getting cold-like symptoms 2-3 days ago, her daughter and grandson were also having similar symptoms. Patient denied any fevers at home. This progressed to severe cough which was productive, it was associated with shortness of breath on exertion. Patient denied any chest pain or palpitation. Patient denied any orthopnea PND. There was no complain of any nausea, vomiting or abdominal pain. Because of this worsening cough patient came to the ER of [facility]. Initial workup in the ER was done, chest x-ray showed some steepling of the subglottic airway which can be associated with croup. Her blood work showed a white count of 11, COVID-19 was negative, RSV was also negative. Patient was started on IV steroids and breathing treatments and was admitted to medicine team REVIEW OF SYSTEMS: CONSTITUTIONAL: No fever. Complaining of fatigue HEENT: No recent visual problems or hearing problems. CARDIOVASCULAR: No chest pain, orthopnea, PND PULMONARY: As mentioned in HPI GASTROINTESTINAL: No diarrhea, no nausea, no vomiting, no abdominal pain. NEUROLOGICAL: No headaches, no weakness, no numbness. HEMATOLOGICAL: Denies any bleeding or petechiae. GENITOURINARY: Denies any burning micturition, frequency, or urgency. MUSCULOSKELETAL/RHEUMATOLOGICAL: Denies any joint pain, swelling, or any muscle pain. ENDOCRINE: Denies any polyuria or polydipsia. The rest of the 14-point review of systems is negative. PHYSICAL EXAMINATION: GENERAL: The patient is alert and oriented x3, not in any acute distress. Well developed, well nourished. HEENT: Pupils are round and equally reacting to light. EOMI. No scleral icterus. No conjunctival pallor. Normocephalic, atraumatic. No pharyngeal erythema. No thyromegaly. CARDIOVASCULAR: S1 and S2 present. No murmurs, rubs, or gallops. PULMONARY: Coarse breath sounds bilaterally, no wheeze, occasional stridor ABDOMEN: Soft, nontender, nondistended, normoactive bowel sounds. No palpable organomegaly. MUSCULOSKELETAL: No joint swelling or deformity. EXTREMITIES: No cyanosis, clubbing, or pedal edema. NEUROLOGICAL: Gross neurological examination did not reveal any focal deficits. SKIN: No rashes. Assessment Acute respiratory distress Stridor History of PE. Hypertension History of CHF Hyperlipidemia History of asthma Plan; Monitor CBC. Monitor CMP. Ordered pro-Leonel Continue IV Solu-Medrol Continue breathing treatments Ordered CT neck and chest with contrast Consult pulmonology CODE STATUS discussed with patient's she wants to be full code DVT prophylaxis: SCDs Past Medical History Past Medical History: Asthma, Coronary Artery Disease (CAD), Chest Pain / Angina, Heart Failure, COPD, CVA/TIA, Deep Vein Thrombosis (DVT), Fibromyalgia, GERD/Reflux, GI Bleed, Hearing Disorder / Deafness, Hyperlipidemia, Hyper tension, Memory Impairment, Myocardial Infarction ([place]), Osteoarthritis (OA), Pneumonia, Pulmonary Embolus (PE), Respiratory Disorder, Seizure Disorder, Skin Disorder, Sleep Apnea/CPAP/BIPAP, Thyroid Disorder Additional Past Medical History / Comment(s): 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 Alex-en-Y gastric bypass for morbid obesity Last Myocardial Infarction Date:: 2002 History of Any Multi-Drug Resistant Organisms: None Reported Past Surgical History: Bariatric Surgery, Hernia Repair, Hysterectomy, Joint Replacement, Orthopedic Surgery, Tubal Ligation Additional Past Surgical History / Comment(s): 10/19/19 PCI with stent, EGDs, colonoscopy/benign polyps, gastric bypass with revision, ventral and hiatal hernia repair, bladder suspension, R rotator curr repair/revision, L knee arthroscopy, rectocele, perinealplasty, lt shoulder replacement Past Anesthesia/Blood Transfusion Reactions: Motion Sickness Past Psychological History: Anxiety, Depression Smoking Status: Never smoker Past Alcohol Use History: Rare Past Drug Use History: None Reported - Past Family History Mother Family Medical History: Coronary Artery Disease (CAD), Eye Disorder Additional Family Medical History / Comment(s): Mother is 91 yrs old Father Family Medical History: Myocardial Infarction ([place]) Additional Family Medical History / Comment(s): Father of a massive [place] at the age of 53 yrs. Sister(s) Family Medical History: Cancer Medications and Allergies Home Medications Medication Instructions Recorded Confirmed Type rOPINIRole HCL [Requip] 6 mg PO HS 11/09/17 01/07/22 History Hydrocodone/Acetaminophen [[place] 1 tab PO QID PRN 10/18/19 01/07/22 History 7.5-325] Diclofenac Potassium [Cataflam] 50 mg PO BID 05/15/20 01/07/22 History ARIPiprazole [Abilify] 5 mg PO HS 01/07/22 01/07/22 History Amitriptyline HCl [Elavil] 100 mg PO HS 01/07/22 01/07/22 History Apixaban [Eliquis] 5 mg PO BID 01/07/22 01/07/22 History Atorvastatin [Lipitor] 20 mg PO HS 01/07/22 01/07/22 History Cyclobenzaprine [Flexeril] 5 mg PO BID PRN 01/07/22 01/07/22 History Gabapentin [Neurontin] 800 mg PO TID 01/07/22 01/07/22 History Topiramate [Topamax] 200 mg PO DAILY 01/07/22 01/07/22 History Vortioxetine Hydrobromide 20 mg PO HS 01/07/22 01/07/22 History [Trintellix] buPROPion XL [Wellbutrin XL] 300 mg PO DAILY 01/07/22 01/07/22 History hydrOXYzine pamoate [Vistaril] 50 mg PO TID PRN 01/07/22 01/07/22 History rOPINIRole HCL [Requip] 1 mg PO BID PRN 01/07/22 01/07/22 History Allergies Allergy/AdvReac Type Severity Reaction Status Date / Time cefprozil [From Cefzil] Allergy Unknown Verified 01/07/22 10:31 Sulfa (Sulfonamide Allergy Rash/Hives Verified 01/07/22 10:31 Antibiotics) valdecoxib [From Bextra] Allergy Unknown Verified 01/07/22 10:31 codeine AdvReac DIFFICULTY Verified 01/07/22 10:31 URINATING metaxalone [From Skelaxin] AdvReac Nausea & Verified 01/07/22 10:31 Vomiting Physical Exam Vitals: Vital Signs Temp Pulse Resp BP Pulse Ox 01/07/22 11:23 74 20 134/78 99 01/07/22 11:22 89 01/07/22 11:13 87 01/07/22 09:27 28 H 01/07/22 09:26 76 22 136/83 100 01/07/22 08:43 84 01/07/22 08:23 80 01/07/22 07:33 98.2 F 93 24 203/132 100 Intake and Output 01/06/22 01/07/22 01/07/22 22:59 06:59 14:59 Other: Weight 120.202 kg Results CBC & Chem 7: 01/07/22 09:15 01/07/22 09:15 Labs: Abnormal Lab Results - Last 24 Hours (Table) 01/07/22 01/07/22 01/07/22 Range/Units 09:15 09:15 09:15 WBC 11.0 H (3.8-10.6) k/uL RBC 3.78 L (3.80-5.40) m/uL Hgb 9.8 L (11.4-16.0) gm/dL Hct 32.1 L (34.0-46.0) % MCHC 30.5 L (31.0-37.0) g/dL Neutrophils # 8.2 H (1.3-7.7) k/uL APTT 19.3 L (22.0-30.0) sec Chloride 110 H (98-107) mmol/L Carbon Dioxide 19 L (22-30) mmol/L Glucose 104 H (74-99) mg/dL Alkaline Phosphatase 150 H (38-126) U/L
--- NOTE | 2022-01-07 13:55 | P.CNPUL ---
History of Present Illness Consult date: 01/07/22 Requesting physician: Edd Lee Reason for consult: dyspnea Chief complaint: Shortness of breath, cough History of present illness: This is a 66-year-old female patient who has a history of coronary artery disease with previous stent placement, morbid obesity with previous gastric bypass and revision, multiple surgeries, CVA/TIA, DVT/PE, GI bleed, hyperlipidemia, hypertension, fibromyalgia, obstructive sleep apnea, hypothyroidism,, asthma. Nonsmoker. She is presents to the emergency room with a 2 day history of cough congestion. She's been exposed to her 3-year-old grandson who is been sick for 3-4 weeks with upper respiratory infection. Chest x-ray revealed some steeping of the subglottic airway possible croup. Suspicious lung consolidation is not identified. White count 11.0. Hemoglobin 9.8. Sodium 139. Potassium 4.4. BUN 16. Creatinine 0.62. Tanner virus by PCR not detected. RSV not detected. She's been initiated on DuoNeb inhalations, IV Solu-Medrol, anticoagulated with Eliquis. She is seen today in consultation in the emergency department. Currently sitting up in a chair at the bedside. Awake and alert in no acute distress. Feeling a bit better. Less cough and congestion. Maintaining O2 saturations up to 100% on 2 L/m per nasal cannula. Afebrile. Hemodynamically stable. Review of Systems REVIEW OF SYSTEMS: CONSTITUTIONAL: Denies any recent significant weight loss or weight gain. EYES: Denies change in vision. EARS, NOSE, MOUTH, THROAT: Denies headaches, denies sore throat. CARDIOVASCULAR: Denies chest pain, palpitations or syncopal episodes. RESPIRATORY: Positive for shortness of breath, cough, congestion no hemoptysis. GASTROINTESTINAL: Denies change in appetite, denies abdominal pain GENITOURINARY: Denies hematuria, denies infections. MUSKULOSKELETAL: Denies pain, denies swelling. INTEGUMENTARY: Denies rash, denies eczema. NEUROLOGICAL: Denies recent memory loss, no recent seizure activity. PSYCHIATRIC: Denies anxiety, denies depression. HEMATOLOGIC/LYMPHATIC: Denies anemia, denies enlarged lymph nodes. Past Medical History Past Medical History: Asthma, Coronary Artery Disease (CAD), Chest Pain / Angina, Heart Failure, COPD, CVA/TIA, Deep Vein Thrombosis (DVT), Fibromyalgia, GERD/Reflux, GI Bleed, Hearing Disorder / Deafness, Hyperlipidemia, Hypertensi on, Memory Impairment, Myocardial Infarction (NE), Osteoarthritis (OA), Pneumonia, Pulmonary Embolus (PE), Respiratory Disorder, Seizure Disorder, Skin Disorder, Sleep Apnea/CPAP/BIPAP, Thyroid Disorder Additional Past Medical History / Comment(s): 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 Alex-en-Y gastric bypass for morbid obesity Last Myocardial Infarction Date:: 2002 History of Any Multi-Drug Resistant Organisms: None Reported Past Surgical History: Bariatric Surgery, Hernia Repair, Hysterectomy, Joint Replacement, Orthopedic Surgery, Tubal Ligation Additional Past Surgical History / Comment(s): 10/19/19 PCI with stent, EGDs, colonoscopy/benign polyps, gastric bypass with revision, ventral and hiatal hernia repair, bladder suspension, R rotator curr repair/revision, L knee arthroscopy, rectocele, perinealplasty, lt shoulder replacement Past Anesthesia/Blood Transfusion Reactions: Motion Sickness Past Psychological History: Anxiety, Depression Smoking Status: Never smoker Past Alcohol Use History: Rare Past Drug Use History: None Reported - Past Family History Mother Family Medical History: Coronary Artery Disease (CAD), Eye Disorder Additional Family Medical History / Comment(s): Mother is 91 yrs old Father Family Medical History: Myocardial Infarction (NE) Additional Family Medical History / Comment(s): Father of a massive NE at the age of 53 yrs. Sister(s) Family Medical History: Cancer Medications and Allergies Home Medications Medication Instructions Recorded Confirmed Type rOPINIRole HCL [Requip] 6 mg PO HS 11/09/17 01/07/22 History Hydrocodone/Acetaminophen [[place] 1 tab PO QID PRN 10/18/19 01/07/22 History 7.5-325] Diclofenac Potassium [Cataflam] 50 mg PO BID 02/12/21 10/07/22 History ARIPiprazole [Abilify] 5 mg PO HS 01/07/22 01/07/22 History Amitriptyline HCl [Elavil] 100 mg PO HS 01/07/22 01/07/22 History Apixaban [Eliquis] 5 mg PO BID 01/07/22 01/07/22 History Atorvastatin [Lipitor] 20 mg PO HS 01/07/22 01/07/22 History Cyclobenzaprine [Flexeril] 5 mg PO BID PRN 01/07/22 01/07/22 History Gabapentin [Neurontin] 800 mg PO TID 01/07/22 01/07/22 History Topiramate [Topamax] 200 mg PO DAILY 01/07/22 01/07/22 History Vortioxetine Hydrobromide 20 mg PO HS 01/07/22 01/07/22 History [Trintellix] buPROPion XL [Wellbutrin XL] 300 mg PO DAILY 01/07/22 01/07/22 History hydrOXYzine pamoate [Vistaril] 50 mg PO TID PRN 01/07/22 01/07/22 History rOPINIRole HCL [Requip] 1 mg PO BID PRN 01/07/22 01/07/22 History Allergies Allergy/AdvReac Type Severity Reaction Status Date / Time cefprozil [From Cefzil] Allergy Unknown Verified 01/07/22 10:31 Sulfa (Sulfonamide Allergy Rash/Hives Verified 01/07/22 10:31 Antibiotics) valdecoxib [From Bextra] Allergy Unknown Verified 01/07/22 10:31 codeine AdvReac DIFFICULTY Verified 01/07/22 10:31 URINATING metaxalone [From Skelaxin] AdvReac Nausea & Verified 01/07/22 10:31 Vomiting Physical Exam Vitals: Vital Signs Temp Pulse Resp BP Pulse Ox 01/07/22 11:23 74 20 134/78 99 01/07/22 11:22 89 01/07/22 11:13 87 01/07/22 09:27 28 H 01/07/22 09:26 76 22 136/83 100 01/07/22 08:43 84 01/07/22 08:23 80 01/07/22 07:33 98.2 F 93 24 203/132 100 Intake and Output 01/06/22 01/07/22 01/07/22 22:59 06:59 14:59 Other: Weight 120.202 kg GENERAL EXAM: Alert, obese, pleasant 66-year-old female patient, on 2 L nasal cannula, fairly comfortable in no apparent distress. HEAD: Normocephalic. EYES: Normal reaction of pupils, equal size. NOSE: Clear with pink turbinates. THROAT: No erythema or exudates. NECK: No masses, no JVD. CHEST: No chest wall deformity. LUNGS: Equal air entry with no crackles, wheeze, rhonchi or dullness. CVS: S1 and S2 normal with no audible murmur, regular rhythm. ABDOMEN: No hepatosplenomegaly, normal bowel sounds, no guarding or rigidity. SPINE: No scoliosis or deformity SKIN: No rashes CENTRAL NERVOUS SYSTEM: No focal deficits, tone is normal in all 4 extremities. EXTREMITIES: There is no peripheral edema. No clubbing, no cyanosis. Peripheral pulses are intact. Results - Laboratory Findings CBC and BMP: 01/07/22 09:15 01/07/22 09:15 PT/INR, D-dimer PT 9.4 sec (9.0-12.0) 01/07/22 09:15 INR 0.8 (<1.2) 01/07/22 09:15 Abnormal lab findings: Abnormal Labs 01/07/22 01/07/22 01/07/22 09:15 09:15 09:15 WBC 11.0 H RBC 3.78 L Hgb 9.8 L Hct 32.1 L MCHC 30.5 L Neutrophils # 8.2 H APTT 19.3 L Chloride 110 H Carbon Dioxide 19 L Glucose 104 H Alkaline Phosphatase 150 H - Diagnostic Findings Chest x-ray: image reviewed Assessment and Plan Assessment: Acute upper respiratory infection with no clear evidence of pneumonia, chest x- ray reveals possible croup. No stridor. Coronavirus not detected. RSV not detected. Previous history of PE/DVT, anticoagulated with Eliquis History of CVA/TIA Coronary disease with previous stent placement Fiber nausea Peripheral neuropathy Spondylosis Morbid obesity with previous gastric bypass and revision Obstructive sleep apnea Hyperlipidemia Hypertension Chronic pain syndrome Plan: The patient was seen and evaluated Chest x-ray, labs and medications reviewed No evidence of stridor, no evidence of pneumonia CT scan of the neck and chest with contrast pending per medicine Continue with bronchodilators, IV Solu-Medrol Pro calcitonin pending We will continue to follow and make further recommendations based on her clinical status I have personally seen and examined the patient, performed the documentation and the assessment and plan as written. Number of minutes spent on the visit: 20.
[2022-01-07 14:36] VITALS: RESP 18
[2022-01-07] MEDS: APIXABAN 5 MG TAB PO SCH ×2 (14:40→20:36)
[2022-01-07] MEDS: GABAPENTIN 400 MG CAP PO SCH ×2 (14:41→21:36)
[2022-01-07] MEDS: HYDROcodone/APAP 7.5-325MG 1 EACH TAB PO PRN ×2 (14:41→18:21)
--- NOTE | 2022-01-07 15:48 | CT ---
EXAMINATION TYPE: CT neck chest w con DATE OF EXAM: 01/07/2022 3:25 PM COMPARISON: CT chest abdomen and pelvis 02/07/2021 HISTORY: Stridor, dyspnea CT DLP: 1411.2 mGycm Automated exposure control for dose reduction was used. CONTRAST: CT scan of the neck and chest is performed following with IV Contrast, patient injected with 100 mL o f Isovue 370. Axial images are obtained, coronal and sagittal reformatted images are reviewed. FINDINGS: Thyroid gland is not enlarged.. The larynx including the thyroid, cricoid and arytenoid cartilages as well as the vocal cords are nor mal and symmetric . The airway is widely patent. The tongue base, epiglottis, aryepiglottic folds, piriform sinuses and vallecula are normal and symme tric the pharynx and parapharyngeal soft tissues are normal. The great vessels the neck are normal. The submandibular glands and parotid glands are normal and symmetric without evidence of gross enlarg ement or focal mass. There is no neck adenopathy or abscess. The lungs are clear. There is no pleural effusion, pleural thickening or pneumothorax The esophagus is diffusely air-filled and prominent to the level of the GE junction where there are p ostsurgical changes involving the GE junction and stomach stomach is collapsed. The findings suggest possible obstruction at the gastroesophageal junction and clinical correlation is recommended. Great vessels chest are normal, and there is no mediastinal, hilar or axillary adenopathy. IMPRESSION: 1. No significant abnormality seen within the soft tissues of the neck. The airway is widely patent. 2. Patulous air-filled esophagus to the level of the GE junction with a collapsed stomach and postsur gical change involving the GE junction stomach. The findings raise the question of obstruction at the level of the gastroesophageal junction. Clinical correlation is recommended. 3. No acute cardiopulmonary disease.
[2022-01-07] MEDS: methylPREDNISolone SOD SUCCI 125 MG/2 ML VIAL IV SCH (18:16)
[2022-01-07] MEDS: CYCLOBENZAPRINE 5 MG TAB PO PRN (18:21)
[2022-01-07] MEDS: FORMOTEROL FUMARATE 20 MCG/2 ML NEBU INHALATION SCH (19:59)
[2022-01-07] MEDS: BUDESONIDE 1 MG/2 ML NEBU INHALATION SCH (19:59)
[2022-01-07] MEDS: FAMOTIDINE 20 MG TAB PO SCH (20:36)
[2022-01-07] MEDS ORDERED: AMITRIPTYLINE HCL 50 MG TAB PO SCH (21:00)
[2022-01-07] MEDS ORDERED: VORTIOXETINE HYDROBROMIDE 20 MG TABLET PO SCH (21:00)
[2022-01-07] MEDS ORDERED: ARIPiprazole 5 MG TAB PO SCH (21:00)
[2022-01-07] MEDS ORDERED: FAMOTIDINE 20 MG/2 ML VIAL IV SCH (21:00)
[2022-01-07] MEDS ORDERED: ATORVASTATIN 20 MG TAB PO SCH (21:00)
[2022-01-07] MEDS ORDERED: rOPINIRole HCL 4 MG TABLET PO SCH (21:00)
[2022-01-08] MEDS: methylPREDNISolone SOD SUCCI 125 MG/2 ML VIAL IV SCH ×2 (00:13→05:48)
[2022-01-08] MEDS: IPRATROPIUM-ALBUTEROL 3 ML NEB INHALATION SCH ×3 (03:26→10:59)
[2022-01-08] MEDS: HYDROcodone/APAP 7.5-325MG 1 EACH TAB PO PRN ×2 (03:41→09:54)
[2022-01-08] MEDS: CYCLOBENZAPRINE 5 MG TAB PO PRN (03:46)
[2022-01-08 04:15] VITALS: BP 115/63; TEMP 97.6
[2022-01-08] MEDS: BUDESONIDE 1 MG/2 ML NEBU INHALATION SCH (07:15)
[2022-01-08] MEDS: FORMOTEROL FUMARATE 20 MCG/2 ML NEBU INHALATION SCH (07:15)
[2022-01-08] MEDS: APIXABAN 5 MG TAB PO SCH (07:52)
[2022-01-08] MEDS: GABAPENTIN 400 MG CAP PO SCH (07:52)
[2022-01-08] MEDS: FAMOTIDINE 20 MG TAB PO SCH (07:52)
[2022-01-08] MEDS ORDERED: buPROPion XL 300 MG TAB.ER.24H PO SCH (09:00)
[2022-01-08] MEDS ORDERED: TOPIRAMATE 100 MG TAB PO SCH (09:00)
[2022-01-08 11:16] VITALS: PULSE 82
--- NOTE | 2022-01-08 11:31 | P.PN ---
Subjective Progress Note Date: 01/08/22 This is a 66-year-old female patient who has a history of coronary artery disease with previous stent placement, morbid obesity with previous gastric bypass and revision, multiple surgeries, CVA/TIA, DVT/PE, GI bleed, hyperlipidemia, hypertension, fibromyalgia, obstructive sleep apnea, hypothyroidism,, asthma. Nonsmoker. She is presents to the emergency room with a 2 day history of cough congestion. She's been exposed to her 3-year-old grandson who is been sick for 3-4 weeks with upper respiratory infection. Chest x-ray revealed some steeping of the subglottic airway possible croup. Suspicious lung consolidation is not identified. White count 11.0. Hemoglobin 9.8. Sodium 139. Potassium 4.4. BUN 16. Creatinine 0.62. Tanner virus by PCR not detected. RSV not detected. She's been initiated on DuoNeb inhalations, IV Solu-Medrol, anticoagulated with Eliquis. She is seen today in consultation in the emergency department. Currently sitting up in a chair at the bedside. Awake and alert in no acute distress. Feeling a bit better. Less cough and congestion. Maintaining O2 saturations up to 100% on 2 L/m per nasal cannula. Afebrile. Hemodynamically stable. The patient is seen today 01/08/2022 in follow-up on the regular medical floor. She is currently sitting up in a chair at the bedside. Awake and alert in no acute distress. She is feeling better and back to her baseline. She is anxious to go home. She is maintaining O2 saturations up to 100% on room air. No stri adriano. No worsening shortness of breath, cough or congestion. Computed tomography scan of the neck revealed no significant abnormality. Airway was widely patent. No acute cardiopulmonary process. Pro-calcitonin 0.05. Tanner virus by PCR negative. RSV negative. She is continued on DuoNeb inhalations, Pulmicort and Perforomist inhalations, IV Solu-Medrol. Anticoagulated with Eliquis. Objective - Vital Signs Vital signs: Vital Signs Temp 97.6 F 01/08/22 04:14 Pulse 82 01/08/22 11:15 Resp 18 01/08/22 04:14 BP 115/63 01/08/22 04:14 Pulse Ox 100 01/08/22 09:57 FiO2 21 01/08/22 07:15 Intake & Output 01/07/22 01/08/22 01/08/22 18:59 06:59 18:59 Intake Total 1296 Balance 1296 Weight 120.202 kg 120.202 kg Intake: Oral 1296 Other: Voiding Method Toilet Toilet Diaper Incontinent # Voids 1 - Exam GENERAL EXAM: Alert, obese, pleasant 66-year-old female patient, on room air, up in a chair at the bedside, comfortable in no apparent distress. HEAD: Normocephalic. EYES: Normal reaction of pupils, equal size. NOSE: Clear with pink turbinates. THROAT: No erythema or exudates. NECK: No masses, no JVD. CHEST: No chest wall deformity. LUNGS: Equal air entry with no crackles, wheeze, rhonchi or dullness. CVS: S1 and S2 normal with no audible murmur, regular rhythm. ABDOMEN: No hepatosplenomegaly, normal bowel sounds, no guarding or rigidity. SPINE: No scoliosis or deformity SKIN: No rashes CENTRAL NERVOUS SYSTEM: No focal deficits, tone is normal in all 4 extremities. EXTREMITIES: There is no peripheral edema. No clubbing, no cyanosis. Peripheral pulses are intact. - Labs CBC & Chem 7: 01/07/22 09:15 01/07/22 09:15 Labs: Abnormal Lab Results - Last 24 Hours (Table) 01/07/22 Range/Units 13:50 C-Reactive Protein 1.9 H (<1.0) mg/dL Assessment and Plan Assessment: Acute upper respiratory infection with no clear evidence of pneumonia, chest x- ray reveals possible croup. Computed tomography scan of the neck revealed no acute findings are widely patent airways. No stridor. Procalcitonin normal. Coronavirus not detected. RSV not detected. Previous history of PE/DVT, anticoagulated with Eliquis History of CVA/TIA Coronary disease with previous stent placement Fibromyalgia Peripheral neuropathy Spondylosis Morbid obesity with previous gastric bypass and revision Obstructive sleep apnea Hyperlipidemia Hypertension Chronic pain syndrome Plan: The patient was seen and evaluated Stable and on room air No evidence of stridor, no evidence of pneumonia CT scan of the neck and chest with no acute findings Cleared for discharge from the pulmonary standpoint I have personally seen and examined the patient, performed the documentation and the assessment and plan as written. Number of minutes spent on the visit: 10.
--- NOTE | 2022-01-08 20:10 | P.DS ---
Providers Date of admission: 01/07/22 10:53 Attending physician: Tyree Dozier MD Consults: 01/07/22 10:51 Consult Physician Urgent Consulting Provider: Bhavik Alcantara Consult Reason/Comments: Stridor, dyspnea Do you want consulting provider notified?: Yes Primary care physician: Edd Lee MD Hospital Course: Diagnoses: Acute respiratory distress, secondary to Stridor. Completely resolved and patie nt was treated for discharge by slitting and shipping supervisor Cardiologic evidence of gastroesophageal junction obstruction, asymptomatic, no swallowing difficulty. Patient informed and she wants to follow up with Dr. Castañeda her surgeon as an outpatient History of PE. Hypertension History of CHF Hyperlipidemia History of asthma History of present illness patient is a 66-year-old lady with past medical history significant for COPD, CHF presented to the ER because of cough and shortness of breath for the last 3 days. Patient was suspected to have stridor and respiratory distress and entered with treatment of steroids Solu-Medrol 60 mg every [address] of the neck and chest with contrast showing negative soft tissue of the neck with patent airways but there is probably gastroesophageal junction obstruction. However patient with no swallowing difficulty, no choking, patient informed and she states that she has history of bariatric surgery which was redone again in 1993 and 1994, however patient with no abdominal/epigastric pain or tenderness, she tolerates diet well. Since she is asymptomatic she does not want to wait in the hospital and she wants to follow up with her surgeon Dr. Sonny dillon as an outpatient with contact information was provided for her. She sitting in bed back to baseline, breathing quietly. She denies chest pain or dyspnea. No abdominal pain or vomiting or diarrhea. No dysuria or urgency. Neck or dizziness. No weakness or numbness. She's hemodynamically stable. CBC is 11,000. Will be stable. Respiratory bedside nurse of Dr. Alcantara wanted patient to be discharged on 40 mg by mouth daily for 7 days, patient will be tapered dose prednisone Also nebulizer treatment is provided for her, she states she has a nebulizer machine at home. Problems and management plan were discussed with the patient and he verbalized understanding and acceptance Patient was found stable and can be discharged home however he needs follow-up as an outpatient. Patient was instructed to follow up with PCP Dr. Lee within one week and patient agrees Patient was instructed to follow up with slitting and shipping supervisor Dr. Escobar in one week and surgeon Dr. Castañeda in one week and she verbalized understanding and acceptance to make appointments as today is week Physical exam Gen: patient is a AAOx3, no distress CVS: S1-S2, RRR, no murmur Lungs: B/L CTA, no wheezing Abdomen: soft, no distention, no tenderness, positive bowel sounds Extremity: no leg edema or induration Time spent more than 35 minutes Plan - Discharge Summary Discharge Rx Participant: No New Discharge Prescriptions: New RX: Famotidine [Pepcid] 20 mg PO BID #60 tab RX: Ipratropium-Albuterol Nebulize [Duoneb 0.5 mg-3 mg/3 ml Soln] 3 ml INHALATION RT-Q4H #1 each RX: predniSONE 10 mg PO DIRECTED #52 tab Continue RX: rOPINIRole HCL [Requip] 6 mg PO HS RX: Hydrocodone/Acetaminophen [[place] 7.5-325] 1 tab PO QID PRN PRN Reason: Pain RX: Gabapentin [Neurontin] 800 mg PO TID RX: Apixaban [Eliquis] 5 mg PO BID RX: Cyclobenzaprine [Flexeril] 5 mg PO BID PRN PRN Reason: Pain RX: Atorvastatin [Lipitor] 20 mg PO HS RX: Amitriptyline HCl [Elavil] 100 mg PO HS RX: Vortioxetine Hydrobromide [Trintellix] 20 mg PO HS RX: Topiramate [Topamax] 200 mg PO DAILY RX: rOPINIRole HCL [Requip] 1 mg PO BID PRN PRN Reason: restless legs RX: hydrOXYzine pamoate [Vistaril] 50 mg PO TID PRN PRN Reason: Anxiety RX: buPROPion XL [Wellbutrin XL] 300 mg PO DAILY RX: ARIPiprazole [Abilify] 5 mg PO HS Discontinued RX: Diclofenac Potassium [Cataflam] 50 mg PO BID Discharge Medication List RX: rOPINIRole HCL [Requip] 6 mg PO HS 11/09/17 [History] RX: Hydrocodone/Acetaminophen [[place] 7.5-325] 1 tab PO QID PRN 10/18/19 [History] RX: ARIPiprazole [Abilify] 5 mg PO HS 01/07/22 [History] RX: Amitriptyline HCl [Elavil] 100 mg PO HS 01/07/22 [History] RX: Apixaban [Eliquis] 5 mg PO BID 01/07/22 [History] RX: Atorvastatin [Lipitor] 20 mg PO HS 01/07/22 [History] RX: Cyclobenzaprine [Flexeril] 5 mg PO BID PRN 01/07/22 [History] RX: Gabapentin [Neurontin] 800 mg PO TID 01/07/22 [History] RX: Topiramate [Topamax] 200 mg PO DAILY 01/07/22 [History] RX: Vortioxetine Hydrobromide [Trintellix] 20 mg PO HS 01/07/22 [History] RX: buPROPion XL [Wellbutrin XL] 300 mg PO DAILY 01/07/22 [History] RX: hydrOXYzine pamoate [Vistaril] 50 mg PO TID PRN 01/07/22 [History] RX: rOPINIRole HCL [Requip] 1 mg PO BID PRN 01/07/22 [History] RX: Famotidine [Pepcid] 20 mg PO BID #60 tab 01/08/22 [Rx] RX: Ipratropium-Albuterol Nebulize [Duoneb 0.5 mg-3 mg/3 ml Soln] 3 ml INHALATION RT-Q4H #1 each 01/08/22 [Rx] RX: predniSONE 10 mg PO DIRECTED #52 tab 01/08/22 [Rx] Follow up Appointment(s)/Referral(s): Edd Lee MD [Primary Care Provider] - 1-2 days Bhavik Alcantara DO [Doctor of Osteopathic Medicine] - 1 Week Tae Abdi MD [STAFF PHYSICIAN] - 1 Week (surgeon for your possible bowel obstruction seen on CT Scan done on 01/07/2022) Patient Instructions/Handouts: Famotidine (By mouth), Prednisone (By mouth), Ipratropium/Albuterol (By breathing), Heart Healthy Diet (DC), Dyspnea (DC) Activity/Diet/Wound Care/Special Instructions: heart healthy diet activity is restricted till you see your doctor Discharge Disposition: HOME SELF-CARE
--- NOTE | 2022-01-11 10:09 | CDI ---
Documentation Clarification Form Date: 01/24/22 From: Mercedes Barraza Admit Date: 01/07/2022 10:53:00 AM Patient Name: Marlin Veras Visit Number: [id number] Discharge Date: 01/08/2022 12:23:00 PM ATTENTION: The Clinical Documentation Specialists (CDI) and [facility] Coding Staff appreciate your assistance in clarifying documentation. Please respond to the clarification below the line at the bottom and electronically sign. The CDI & [facility] Coding staff will review the response and follow-up if needed. Please note: Queries are made part of the Legal Health Record. If you have any questions, please contact the author of this message via ITS. Dr. Quan, The patients principal diagnosis the diagnosis that was chiefly responsible for the admission - has not been clearly identified and clarification is requested. The patient presented with SOB, respiratory distress and stridor, which are all symptoms. Please clarify the etiology of the stridor and respiratory distress History/Risk factors: Asthma, History of CVA, History of CHF, Barking cough, URI Clinical Indicators: elevated Blood pressure 203/132 Lab findings: Elevated WBC 11.0, low hemoglobin 9.8. Radiology findings: CXR Consider croup in the differential Vital Signs: 98.2, 93 bpm, 24, 203/132, 100% RA and then 99% 4NC Ventolin Nebulizer, SoluMedrol, Pulmicort Consults: Per pulmonary no stridor and no pneumonia In your professional opinion, can you please clarify which diagnosis, after study, was the reason chiefly responsible for the admission? [ ] Croup [ ] Acute Upper Respiratory Infection [ ] Other, please specify [ ] Unable to determine stridor: NOS MTDD
== END 2022-01-08 12:23 | disposition home or self-care (01) | DRG 204 ==
LOC: EC 07:32 → 5NMEDONC 10:53
PROVIDERS: ADMIT Internal Medicine; ATTEND Internal Medicine
DX: R06.1 Stridor (principal); I69.351 Hemiplegia and hemiparesis following cerebral infarction affecting right dominant side; R06.03 Acute respiratory distress; G47.33 Obstructive sleep apnea (adult) (pediatric); G62.9 Polyneuropathy, unspecified; G89.4 Chronic pain syndrome; H91.90 Unspecified hearing loss, unspecified ear; I11.0 Hypertensive heart disease with heart failure; I25.10 Atherosclerotic heart disease of native coronary artery without angina pectoris; I27.20 Pulmonary hypertension, unspecified; Z20.822 Contact with and (suspected) exposure to COVID-19; I50.9 Heart failure, unspecified; I25.2 Old myocardial infarction; E66.01 Morbid (severe) obesity due to excess calories; R13.10 Dysphagia, unspecified; E03.9 Hypothyroidism, unspecified; F32.A Depression, unspecified; J05.0 Acute obstructive laryngitis [croup]; J44.9 Chronic obstructive pulmonary disease, unspecified; M47.9 Spondylosis, unspecified; M79.7 Fibromyalgia; F41.9 Anxiety disorder, unspecified; E78.5 Hyperlipidemia, unspecified; G40.909 Epilepsy, unspecified, not intractable, without status epilepticus; Z79.01 Long term (current) use of anticoagulants; Z95.5 Presence of coronary angioplasty implant and graft; Z96.612 Presence of left artificial shoulder joint; Z98.84 Bariatric surgery status; Z86.711 Personal history of pulmonary embolism; Z86.718 Personal history of other venous thrombosis and embolism; Z79.899 Other long term (current) drug therapy; Z99.81 Dependence on supplemental oxygen; M19.90 Unspecified osteoarthritis, unspecified site; Z87.01 Personal history of pneumonia (recurrent); R29.6 Repeated falls
CPT/HCPCS: 36415; 70491; 71046; 71260; 80053; 83605; 83735; 83880; 84145; 84484; 85025; 85610; 85730; 86140; 87040; 87634; 87635; 93005; 94640; 94760; 96374; 99285

== ENCOUNTER 2022-02-01 02:04 | Emergency (ER) | payer MEDICARE ==
[2022-02-01 02:14] VITALS: RESP 18; TEMP 98.1
[2022-02-01] MEDS ORDERED: SODIUM CHLORIDE 0.9% 1,000 ML IV STA (02:16)
[2022-02-01] MEDS ORDERED: LORazepam 2 MG/ML INJ IV STA (02:16)
[2022-02-01] MEDS ORDERED: POTASSIUM BICARBONATE/CIT AC 20 MEQ TABLET.EFF PO ONE (02:16)
--- NOTE | 2022-02-01 02:25 | ED ---
Fall HPI - General Chief Complaint: Fall Stated Complaint: Fall, Head Injury Time Seen by Provider: 02/01/22 02:08 Source: patient, RN notes reviewed, old records reviewed Mode of arrival: EMS Limitations: no limitations, altered mental status - History of Present Illness Initial Comments: This is a 59-year-old female DF for evaluation patient Dese for evaluation status post fall patient fall over the bathroom did fall forward hit her head. No loss of consciousness, patient is on blood thinners has not taken limits 5 days complaining of right knee pain. MD Complaint: fall -: minutes(s) Fall From: standing When Fall Occurred: 1-3 hours PICCOLOIST Fall Witnessed: no Place Fall Occurred: home Loss of Consciousness: none Prolonged Down Time?: no Symptoms Prior to Fall: none Location: face Location - Extremities: Right: Knee Severity: moderate Severity scale (1-10): 4 Quality: stabbing, aching Context: tripped/slipped Associated Symptoms: denies - Related Data Home Medications Medication Instructions Recorded Confirmed rOPINIRole HCL [Requip] 6 mg PO HS 11/09/17 01/07/22 Hydrocodone/Acetaminophen [[place] 1 tab PO QID PRN 10/18/19 01/07/22 7.5-325] ARIPiprazole [Abilify] 5 mg PO HS 01/07/22 01/07/22 Amitriptyline HCl [Elavil] 100 mg PO HS 01/07/22 01/07/22 Apixaban [Eliquis] 5 mg PO BID 01/07/22 01/07/22 Atorvastatin [Lipitor] 20 mg PO HS 01/07/22 01/07/22 Cyclobenzaprine [Flexeril] 5 mg PO BID PRN 01/07/22 01/07/22 Gabapentin [Neurontin] 800 mg PO TID 01/07/22 01/07/22 Topiramate [Topamax] 200 mg PO DAILY 01/07/22 01/07/22 Vortioxetine Hydrobromide 20 mg PO HS 01/07/22 01/07/22 [Trintellix] buPROPion XL [Wellbutrin XL] 300 mg PO DAILY 01/07/22 01/07/22 hydrOXYzine pamoate [Vistaril] 50 mg PO TID PRN 01/07/22 01/07/22 rOPINIRole HCL [Requip] 1 mg PO BID PRN 01/07/22 01/07/22 Previous Rx's Medication Instructions Recorded Famotidine [Pepcid] 20 mg PO BID #60 tab 01/08/22 Ipratropium-Albuterol Nebulize 3 ml INHALATION RT-Q4H #1 each 01/08/22 [Duoneb 0.5 mg-3 mg/3 ml Soln] predniSONE 10 mg PO DIRECTED #52 tab 01/08/22 Allergies Allergy/AdvReac Type Severity Reaction Status Date / Time cefprozil [From Cefzil] Allergy Unknown Verified 01/07/22 10:31 Sulfa (Sulfonamide Allergy Rash/Hives Verified 01/07/22 10:31 Antibiotics) valdecoxib [From Bextra] Allergy Unknown Verified 01/07/22 10:31 codeine AdvReac DIFFICULTY Verified 01/07/22 10:31 URINATING metaxalone [From Skelaxin] AdvReac Nausea & Verified 01/07/22 10:31 Vomiting Review of Systems ROS Statement: Those systems with pertinent positive or pertinent negative responses have been documented in the HPI. ROS Other: All systems not noted in ROS Statement are negative. 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 Alex-en-Y gastric bypass for morbid obesity, has home o2 that was prescribed in 2019 but currently does not use Last Myocardial Infarction Date:: 2002 History of Any Multi-Drug Resistant Organisms: None Reported Past Surgical History: Bariatric Surgery, Hernia Repair, Hysterectomy, Joint Replacement, Orthopedic Surgery, Tubal Ligation Additional Past Surgical History / Comment(s): 10/19/19 PCI with stent, EGDs, colonoscopy/benign polyps, gastric bypass with revision, ventral and hiatal hernia repair, bladder suspension, R rotator curr repair/revision, L knee arthroscopy, rectocele, perinealplasty, 07/05/20 left shoulder replacement, 11/11/21 right shoulder replacement Past Anesthesia/Blood Transfusion Reactions: Motion Sickness Smoking Status: Never smoker - Past Family History Mother Family Medical History: Coronary Artery Disease (CAD), Eye Disorder Additional Family Medical History / Comment(s): Mother is 91 yrs old Father Family Medical History: Myocardial Infarction (SD) Additional Family Medical History / Comment(s): Father of a massive SD at the age of 53 yrs. General Exam General appearance: alert, in no apparent distress, anxious, obese Head exam: Present: atraumatic, normocephalic, normal inspection Eye exam: Present: normal appearance, PERRL, EOMI. Absent: scleral icterus, conjunctival injection, periorbital swelling ENT exam: Present: normal exam, mucous membranes moist Neck exam: Present: normal inspection. Absent: tenderness, meningismus, lymphadenopathy Respiratory exam: Present: normal lung sounds bilaterally. Absent: respiratory distress, wheezes, rales, rhonchi, stridor Cardiovascular Exam: Present: regular rate, normal rhythm, normal heart sounds. Absent: systolic murmur, diastolic murmur, rubs, gallop, clicks GI/Abdominal exam: Present: soft, normal bowel sounds. Absent: distended, tenderness, guarding, rebound, rigid Extremities exam: Present: normal inspection, full ROM, normal capillary refill. Absent: tenderness, pedal edema, joint swelling, calf tenderness Back exam: Present: normal inspection Neurological exam: Present: alert, oriented X3, CN II-XII intact Psychiatric exam: Present: normal affect, normal mood Skin exam: Present: warm, dry, intact, normal color. Absent: rash Course Vital Signs 02/01/22 02:10 Temperature 98.1 F Pulse Rate 72 Respiratory 18 Rate Blood Pressure 140/96 O2 Sat by Pulse 94 L Oximetry - Reevaluation(s) Reevaluation #1: 02/01/22 02:24 Medical records reviewed Reevaluation #2: 02/01/22 03:54 Patient informed results and questions answered Reevaluation #3: 02/01/22 03:54 Patient is able ambulate without difficulty Medical Decision Making - Medical Decision Making 67 female to the emergency department for evaluation status post fall no acute injuries found. Patient can be discharged home Disposition Clinical Impression: Fall Disposition: HOME SELF-CARE Condition: Good Instructions (If sedation given, give patient instructions): Fall Prevention for Older Adults (ED) Is patient prescribed a controlled substance at d/c from ED?: No Referrals: Edd Lee MD [Primary Care Provider] - 1-2 days Time of Disposition: 05:55
--- NOTE | 2022-02-01 03:16 | CT ---
EXAMINATION TYPE: CT brain cspine wo con DATE OF EXAM: 02/01/2022 COMPARISON: 05/11/2021 HISTORY: FALL CT DLP: 723 mGycm Automated exposure control for dose reduction was used. Images obtained of the brain and cervical spine with no contrast. Ventricles have normal size. There is no mass effect or midline shift. No sign of intracranial hemorr tigist. Calvarium is intact. The cervical vertebra have normal alignment. Posterior element are intact. No compression fracture. T here is degenerative mild disc space narrowing at C3-4. Facet joints are intact. Cervical spine exam limited slightly by motion artifact. IMPRESSION: Negative CT scan of the brain. No acute intracranial abnormality. Minor degenerative changes in the cervical spine. No fracture. No significant change compared to old exam.
--- NOTE | 2022-02-01 03:20 | CT ---
EXAMINATION TYPE: CT facial bones wo con DATE OF EXAM: 02/01/2022 COMPARISON: 05/11/2021 HISTORY: FALL CT DLP: 723 mGycm Automated exposure control for dose reduction was used. Images obtained from the bottom of the mandible to the top of the frontal sinuses with no contrast. The mandibular ring is intact. Temporomandibular joints are intact. The maxilla is intact. Nasal bone is intact. There is mucosal thickening in the ethmoid sinuses and nasopharynx. The orbital margins are intact. N o evidence of orbital blowout fracture. No retro-orbital mass. Frontal sinuses appear normal. No evid ence of skull fracture. The skull base is intact. There is fairly normal aeration of the mastoid sinu ses. IMPRESSION: Mucosal thickening in the ethmoid sinus and the nasopharynx that could relate to trauma and blood hugh t and debris. This is a change compared to the old exam. No fracture seen. No evidence of nasal bone fracture.
--- NOTE | 2022-02-01 03:21 | XR ---
EXAMINATION TYPE: XR chest 1V DATE OF EXAM: 02/01/2022 COMPARISON: 01/07/2022 HISTORY: Fall. Pain TECHNIQUE: Single view FINDINGS: Heart and mediastinum are normal. Lungs are clear. Diaphragm is normal. Bony thorax is inta ct. There is bilateral shoulder prosthesis. IMPRESSION: No active cardiopulmonary disease. No change.
--- NOTE | 2022-02-01 03:23 | XR ---
EXAMINATION TYPE: XR knee complete RT DATE OF EXAM: 02/01/2022 COMPARISON: NONE HISTORY: Fall. Pain TECHNIQUE: 3 views FINDINGS: There is some narrowing of the patellofemoral joint with spurring of the patella and the fe mur. There is narrowing of the medial and lateral joint spaces. No fracture seen. No sign of joint ef fusion. IMPRESSION: There is osteoarthritis involving all the joint spaces. No fracture.
--- NOTE | 2022-02-01 03:24 | XR ---
EXAMINATION TYPE: XR pelvis AP view DATE OF EXAM: 02/01/2022 COMPARISON: NONE HISTORY: Fall. Pain TECHNIQUE: Single view FINDINGS: The pelvic ring is intact. The proximal femurs and hip joints are intact. No hip fracture. Sacroiliac joints are intact. There is minimal hip joint space narrowing. IMPRESSION: No acute abnormality of the pelvis. No fracture.
[2022-02-01 04:06] VITALS: BP 132/91; PULSE 70
== END 2022-02-01 04:05 | disposition home or self-care (01) ==
LOC: EC 02:04
DX: S09.90XA Unspecified injury of head, initial encounter (principal); J45.909 Unspecified asthma, uncomplicated; I11.0 Hypertensive heart disease with heart failure; J44.9 Chronic obstructive pulmonary disease, unspecified; I82.409 Acute embolism and thrombosis of unspecified deep veins of unspecified lower extremity; K21.9 Gastro-esophageal reflux disease without esophagitis; E78.5 Hyperlipidemia, unspecified; I25.2 Old myocardial infarction; M19.90 Unspecified osteoarthritis, unspecified site; G47.30 Sleep apnea, unspecified; E07.9 Disorder of thyroid, unspecified; Z88.1 Allergy status to other antibiotic agents; Z88.2 Allergy status to sulfonamides; Z88.6 Allergy status to analgesic agent; Z88.5 Allergy status to narcotic agent; Z79.83 Long term (current) use of bisphosphonates; Z79.82 Long term (current) use of aspirin; Z79.899 Other long term (current) drug therapy; W18.30XA Fall on same level, unspecified, initial encounter; Y92.002 Bathroom of unspecified non-institutional (private) residence as the place of occurrence of the external cause
CPT/HCPCS: 72170; 73562; 71045; 72125; 70486; 70450; 99284; 96374; J2060

== ENCOUNTER 2022-07-08 19:04 | Inpatient (IN) | payer MEDICARE ==
--- NOTE | 2022-07-08 19:36 | ED ---
Chest Pain HPI - General Chief Complaint: Chest Pain Stated Complaint: SOB/Chest Pain Time Seen by Provider: 07/08/22 19:21 Source: patient Mode of arrival: ambulatory Limitations: no limitations - History of Present Illness Initial Comments: This patient is a 67-year-old woman who presents to have evaluation for cough, dyspnea, and chest pain. The patient started having symptoms of upper respiratory infection and coughing in number days ago and was seen in the clinic by her primary physician. She states she was given antibiotic and steroid. She has taken those as directed but noted she was feeling worse over the course of this morning. She states she's had increased cough and now she is having significant chest pain. She indicates bilateral ribs. She states that pain is mainly cough related if she is able to sit quietly she doesn't have much pain but she is having prolonged coughing episodes. She has not noted fevers. No anginal symptoms, no diaphoresis, nausea or vomiting, palpitations or lightheadedness. Patient has not noted any change in her legs, no pain or swelling. No change in urination or bowel movements. MD Complaint: chest pain -: days(s) Onset: other (Coughing) Pain Location: left chest, right chest Pain Radiation: none Severity: moderate Quality: aching Consistency: constant Improves With: nothing Worsens With: other (Cough) Anginal Symptoms: dyspnea Other Symptoms: cough Treatments Prior to Arrival: none - Related Data Home Medications Medication Instructions Recorded Confirmed rOPINIRole HCL [Requip] 3 mg PO TID 11/09/17 07/08/22 Hydrocodone/Acetaminophen [[place] 1 tab PO QID PRN 10/18/19 07/08/22 7.5-325] ARIPiprazole [Abilify] 5 mg PO HS 01/07/22 07/08/22 Amitriptyline HCl [Elavil] 100 mg PO HS 01/07/22 07/08/22 Apixaban [Eliquis] 5 mg PO BID 01/07/22 07/08/22 Atorvastatin [Lipitor] 20 mg PO HS 01/07/22 07/08/22 Cyclobenzaprine [Flexeril] 5 mg PO BID PRN 01/07/22 07/08/22 Gabapentin [Neurontin] 800 mg PO TID 01/07/22 07/08/22 Vortioxetine Hydrobromide 20 mg PO HS 01/07/22 07/08/22 [Trintellix] buPROPion XL [Wellbutrin XL] 300 mg PO DAILY 01/07/22 07/08/22 hydrOXYzine pamoate [Vistaril] 50 mg PO TID PRN 01/07/22 07/08/22 Butalb/APAP/Caff 50-325-40Mg 1 tab PO BID PRN 07/08/22 07/08/22 [Fioricet 50-325-40] Diclofenac Potassium [Cataflam] 50 mg PO BID 07/08/22 07/08/22 Diclofenac Sodium Gel [Voltaren 4 gm TOPICAL QID PRN 07/08/22 07/08/22 Gel] Furosemide [Lasix] 40 mg PO DAILY 07/08/22 07/08/22 Ipratropium-Albuterol Nebulize 3 ml INHALATION RT-QID PRN 07/08/22 07/08/22 [Duoneb 0.5 mg-3 mg/3 ml Soln] Previous Rx's Medication Instructions Recorded Famotidine [Pepcid] 20 mg PO BID #60 tab 01/08/22 predniSONE 0 mg PO DIRECTED #18 tab 07/11/22 Allergies Allergy/AdvReac Type Severity Reaction Status Date / Time cefprozil [From Cefzil] Allergy Unknown Verified 07/08/22 20:04 Sulfa (Sulfonamide Allergy Rash/Hives Verified 07/08/22 20:04 Antibiotics) valdecoxib [From Bextra] Allergy Unknown Verified 07/08/22 20:04 codeine AdvReac DIFFICULTY Verified 07/08/22 20:04 URINATING metaxalone [From Skelaxin] AdvReac Nausea & Verified 07/08/22 20:04 Vomiting Review of Systems ROS Statement: Those systems with pertinent positive or pertinent negative responses have been documented in the HPI. ROS Other: All systems not noted in ROS Statement are negative. Constitutional: Denies: fever, chills Respiratory: Reports: cough, dyspnea, wheezes Cardiovascular: Reports: chest pain. Denies: palpitations, orthopnea, edema, syncope Gastrointestinal: Denies: abdominal pain, vomiting, diarrhea Genitourinary: Denies: dysuria Musculoskeletal: Denies: back pain Skin: Denies: rash Neurological: Denies: headache, weakness EKG Findings - EKG Results: EKG: interpreted by ERMD, sinus rhythm (Rate 70 bpm), normal axis, normal ST/T - [place], Pacemaker, Normal: Myocardial infarction: septal [place] (old age or indeterminate) (Q waves in V1 and V2) Past Medical History Past Medical History: Asthma, Coronary Artery Disease (CAD), Chest Pain / Angina, Heart Failure, COPD, CVA/TIA, Deep Vein Thrombosis (DVT), Fibromyalgia, GERD/Reflux, GI Bleed, Hearing Disorder / Deafness, Hyperlipidemia, Hypertension, Memory Impairment, Myocardial Infarction ([place]), Osteoarthritis (OA), Pneumonia, Pulmonary Embolus (PE), Respiratory Disorder, Seizure Disorder, Skin Disorder, Sleep Apnea/CPAP/BIPAP, Thyroid Disorder Additional Past Medical History / Comment(s): 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 Alex-en-Y gastric bypass for morbid obesity, has home o2 that was prescribed in 2019 but currently does not use Last Myocardial Infarction Date:: 2002 History of Any Multi-Drug Resistant Organisms: None Reported Past Surgical History: Bariatric Surgery, Hernia Repair, Hysterectomy, Joint Replacement, Orthopedic Surgery, Tubal Ligation Additional Past Surgical History / Comment(s): 10/19/19 PCI with stent, EGDs, colonoscopy/benign polyps, gastric bypass with revision, ventral and hiatal hernia repair, bladder suspension, R rotator curr repair/revision, L knee arthroscopy, rectocele, perinealplasty, 07/05/20 left shoulder replacement, 11/11 right shoulder replacement Past Anesthesia/Blood Transfusion Reactions: Motion Sickness Past Psychological History: Anxiety, Depression Smoking Status: Never smoker Past Alcohol Use History: None Reported Past Drug Use History: None Reported - Past Family History Mother Family Medical History: Coronary Artery Disease (CAD), Eye Disorder Additional Family Medical History / Comment(s): Mother is 91 yrs old Father Family Medical History: Myocardial Infarction (MN) Additional Family Medical History / Comment(s): Father of a massive MN at the age of 53 yrs. General Exam Limitations: no limitations General appearance: alert, in no apparent distress Head exam: Present: atraumatic, normocephalic Eye exam: Present: normal appearance. Absent: scleral icterus, conjunctival injection Neck exam: Present: normal inspection Respiratory exam: Present: wheezes, chest wall tenderness. Absent: rales, rhonchi, stridor, accessory muscle use, decreased breath sounds Cardiovascular Exam: Present: regular rate, normal rhythm, normal heart sounds. Absent: systolic murmur, diastolic murmur, rubs, gallop GI/Abdominal exam: Present: soft. Absent: distended, tenderness, guarding, rebound, rigid, mass Extremities exam: Present: normal inspection, normal capillary refill. Absent: pedal edema, calf tenderness Back exam: Present: normal inspection Neurological exam: Present: alert Skin exam: Present: warm, dry, intact, normal color. Absent: rash Course Vital Signs 07/08/22 07/08/22 07/08/22 19:10 19:37 20:23 Temperature 98.3 F Pulse Rate 80 72 Respiratory 20 Rate Blood Pressure 172/91 O2 Sat by Pulse 96 96 Oximetry 07/08/22 07/08/22 20:31 22:18 Temperature Pulse Rate 78 74 Respiratory 18 Rate Blood Pressure 154/74 O2 Sat by Pulse 97 Oximetry Chest Pain MDM - MDM This patient is a 67-year-old woman presenting with dyspnea, cough, wheeze. She has not had adequate response to the outpatient treatment. Patient will be admitted to continued steroids, inhaled medications, have pulmonology consultation. The patient's chest x-ray interpreted by myself as showing no infiltrate, pneumothorax, or CHF. The patient did have CT of the chest after having a positive d-dimer, that I interpreted as showing some small areas of opacity suggestive of viral p neumonitis. The patient is covered with antibiotic and pro-calcitonin level pending to further rule out bacterial pneumonia. Case discussed with admitting physician, the sound group is covering for p atient's primary for the weekend. Was pt. sent in by a medical professional or institution (, PA, PROCESS ASSISTANT, urgent care, hospital, or fci...) When possible be specific @ -[No] Did you speak to anyone other than the patient for history (EMS, parent, family, police, friend...)? What history was obtained from this source @ -[No] Did you review nursing and triage notes (agree or disagree)? Why? @ -[I reviewed and agree with nursing and triage notes] Were old charts reviewed (outside hosp., previous admission, EMS record, old EKG, old radiological studies, urgent care reports/EKG's, fci records)? Report findings @ -[No old charts were reviewed] Differential Diagnosis (chest pain, altered mental status, abdominal pain women, abdominal pain men, vaginal bleeding, weakness, fever, dyspnea, syncope, headache, dizziness, GI bleed, back pain, seizure, CVA, palpatations, mental health, musculoskeletal)? @ -[Differential Dyspnea: Coronary syndrome, arrhythmia, tamponade, asthma, COPD, pulmonary embolism, pneumonia, pneumothorax, pulmonary effusion, anaphylaxis, diabetic ketoacidosis, flailed chest, pulmonary contusion, diaphragmatic rupture, anemia, neuromuscular, this is not meant to be an all-inclusive list. EKG interpreted by me (3pts min.). @ -[As above] X-rays interpreted by me (1pt min.). @ -[As above CT interpreted by me (1pt min.). @ -[None done] U/S interpreted by me (1pt. min.). @ -[None done] What testing was considered but not performed or refused? (CT, X-rays, U/S, labs)? Why? @ -[None] What meds were considered but not given or refused? Why? @ -[None] Did you discuss the management of the patient with other professionals (professionals i.e. , PA, PROCESS ASSISTANT, lab, RT, psych nurse, social welfare administrator, production quality analyst, teacher, freedom of information officer, showcase maker)? Give summary @ -[Acis discussed with admitting physician Was smoking cessation discussed for >3mins.? @ -[No] Was critical care preformed (if so, how long)? @ -[No] Were there social determinants of health that impacted care today? How? (Homelessness, low income, unemployed, alcoholism, drug addiction, transportation, low edu. Level, literacy, decrease access to med. care, group home, rehab)? @ -[No] Was there de-escalation of care discussed even if they declined (Discuss DNR or withdrawal of care, Hospice)? DNR status @ -[No] What co-morbidities impacted this encounter? (DM, HTN, Smoking, COPD, CAD, Cancer, CVA, ARF, Chemo, Hep., AIDS, mental health diagnosis, sleep apnea, morbid obesity)? @ -[None] Was patient admitted / discharged? Hospital course, mention meds given and route, prescriptions, significant lab abnormalities, going to OR and other pertinent info. @ -[Admitted, as above Undiagnosed new problem with uncertain prognosis? @ -[No] Drug Therapy requiring intensive monitoring for toxicity (Heparin, Nitro, Insulin, Cardizem)? @ -[No] Were any procedures done? @ -[No] Diagnosis/symptom? @ -[1. Acute dyspnea 2. Acute exacerbation of COPD 3. Viral pneumonitis versus atypical pneumonia Acute, or Chronic, or Acute on Chronic? @ -[Acute Uncomplicated (without systemic symptoms) or Complicated (systemic symptoms)? @ -[default] Side effects of treatment? @ -[No] Exacerbation, Progression, or Severe Exacerbation? @ -[Exacerbation of COPD Poses a threat to life or bodily function? How? (Chest pain, [place], [place], pneumonia, PE, COPD, DKA, ARF, appy, cholecystitis, CVA, Diverticulitis, Homicidal, Suicidal, threat to staff... and all critical care pts) @ -[Yes, untreated dyspnea Progressed to respiratory failure and Disposition Clinical Impression: Pneumonitis, COPD exacerbation, Rib pain Disposition: ADMITTED IP TO THIS HOSP Condition: Fair Is patient prescribed a controlled substance at d/c from ED?: No
[2022-07-08] MEDS ORDERED: MORPHINE SULFATE 4 MG/ML SYRINGE IV STA (19:37)
[2022-07-08 19:47] LABS: Anisocytosis Slight; Basophils # (A) 0.1 k/uL (0-0.2); Basophils % (A) 1 %; Eosinophils # (A) 0.1 k/uL (0-0.7); Eosinophils % (A) 1 %; HCT 35.2 % (34.0-46.0); HGB 10.6 gm/dL (11.4-16.0); Hypochromasia Slight; Lymphocytes # (A) 1.8 k/uL (1.0-4.8); Lymphocytes % (A) 22 %; MCH 24.2 pg (25.0-35.0); MCHC 30.2 g/dL (31.0-37.0); MCV 80.1 fL (80.0-100.0); Mean Platelet Volume 6.9; Microcytosis Slight; Monocytes # (A) 0.6 k/uL (0-1.0); Monocytes % (A) 7 %; Neutrophils # (A) 5.6 k/uL (1.3-7.7); Neutrophils % (A) 67 %; Platelet Count 478 k/uL (150-450); RBC 4.39 m/uL (3.80-5.40); RDW 16.8 % (11.5-15.5); WBC 8.4 k/uL (3.8-10.6)
[2022-07-08] MEDS ORDERED: IPRATROPIUM-ALBUTEROL 3 ML NEB INHALATION STA (19:51)
[2022-07-08 19:52] LABS: ALT 18 U/L (4-34); AST 23 U/L (14-36); African American GFR (CKD) >90 (>60 ml/min/1.73 sqM); Alkaline Phosphatase 127 U/L (38-126); Anion Gap 9 mmol/L; Blood Urea Nitrogen 19 mg/dL (7-17); Calcium 8.7 mg/dL (8.4-10.2); Carbon Dioxide 27 mmol/L (22-30); Chloride 102 mmol/L (98-107); Glucose 91 mg/dL (74-99); Magnesium 2.2 mg/dL (1.6-2.3); Non-African American GFR(CKD) >90 (>60 ml/min/1.73 sqM); Potassium 4.2 mmol/L (3.5-5.1); Sodium 138 mmol/L (137-145); Total Bilirubin 0.4 mg/dL (0.2-1.3); Total Protein 7.1 g/dL (6.3-8.2)
--- NOTE | 2022-07-08 19:54 | XR ---
EXAMINATION TYPE: XR chest 2V DATE OF EXAM: 07/08/2022 COMPARISON: 02/01/2022 TECHNIQUE: PA and lateral views submitted. HISTORY: Chest pain FINDINGS: The lungs are clear and there is no pneumothorax, pleural effusion, or focal pneumonia. Heart size normal and no overt failure. Osseous structures demonstrate hypertrophic and degenerative changes of the spine. Postsurgical change involving the shoulders bilaterally. A partial eventration of the righ t hemidiaphragm. There appears to be an intrathecal catheter or lead. Similar relative to prior exam. IMPRESSION: 1. No acute process.
[2022-07-08 20:09] LABS: INR 0.9 (<1.2); Partial Thromboplastin Time 22.2 sec (22.0-30.0); Prothrombin Time 9.5 sec (9.0-12.0)
--- NOTE | 2022-07-08 21:04 | CT ---
EXAMINATION TYPE: CT chest angio for PE DATE OF EXAM: 07/08/2022 COMPARISON: 02/17/2021 HISTORY: dyspnea. hx of PE CT DLP: 644.6 mGycm Automated exposure control for dose reduction was used. CONTRAST: CT Chest for pulmonary embolism performed with with IV Contrast, patient injected with 100ml mL of Is ovue 370. FINDINGS: LUNGS: There are small areas of patchy groundglass attenuation involving both upper lobes. Identified . There is no pleural effusion or pneumothorax seen. The tracheobronchial tree is patent. Subpleur al nodularity seen in the right upper lobe too small to characterize measuring 5 mm. MEDIASTINUM: There is satisfactory enhancement of the pulmonary artery and its branches, there is no CT evidence for pulmonary embolism. Heart mildly enlarged. There nonspecific 1.2 cm right hilar lymp hadenopathy additional shotty lymphadenopathy in the mediastinum. There is fluid within the esophagus and evidence of a hiatal hernia with previous surgery involving the stomach. Suspect the patient is at risk for aspiration. Correlate for history of reflux. OTHER: Hypertrophic and degenerative changes of the spine. Bilateral shoulder surgery. Appears to be a stimulator lead within the vertebral column. Chronic appearing superior endplate compression fract ure mid to upper thoracic spine approximately 30% reduction in vertebral body height IMPRESSION: 1. No diagnostic evidence of pulmonary embolism. 2. Patchy small areas of groundglass attenuation bilateral upper lobes correlate for pneumonitis. 3. There is previous gastric surgery with hiatal hernia and. 4. There is nonspecific right hilar adenopathy. Pneumonia correlate for
[2022-07-08] MEDS ORDERED: GABAPENTIN 400 MG CAP PO STA (21:24)
[2022-07-08] MEDS ORDERED: ACETAMINOPHEN TAB 325 MG TAB PO PRN (21:59)
[2022-07-08] MEDS ORDERED: NALOXONE 0.4 MG/ML 1 ML VIAL IVP PRN (21:59)
[2022-07-08] MEDS ORDERED: predniSONE 20 MG TAB PO STA (22:05)
[2022-07-08] MEDS ORDERED: CYCLOBENZAPRINE 5 MG TAB PO PRN (22:17)
[2022-07-08] MEDS: BENZONATATE 100 MG CAP PO PRN (23:41)
[2022-07-08] MEDS: HEPARIN SODIUM,PORCINE/PF 5,000 UNIT/0.5 ML SYRINGE SQ SCH (23:42)
[2022-07-08] MEDS: HYDROcodone/APAP 7.5-325MG 1 EACH TAB PO PRN (23:42)
[2022-07-09] MEDS: hydrOXYzine pamoate 25 MG CAP PO PRN ×2 (04:37→23:18)
[2022-07-09] MEDS: HYDROcodone/APAP 7.5-325MG 1 EACH TAB PO PRN ×2 (04:38→19:34)
[2022-07-09] MEDS ORDERED: ALBUTEROL NEBULIZED 2.5 MG/3 ML INHALATION SCH (08:00)
[2022-07-09] MEDS: IPRATROPIUM 0.5 MG/2.5 ML NEBU INHALATION SCH ×4 (08:21→20:28)
[2022-07-09] MEDS: GABAPENTIN 400 MG CAP PO SCH ×4 (08:30→21:04)
[2022-07-09] MEDS: APIXABAN 5 MG TAB PO SCH ×2 (08:30→21:03)
[2022-07-09] MEDS: HEPARIN SODIUM,PORCINE/PF 5,000 UNIT/0.5 ML SYRINGE SQ SCH (08:31)
[2022-07-09] MEDS: FAMOTIDINE 20 MG TAB PO SCH ×2 (08:31→21:04)
[2022-07-09] MEDS ORDERED: AZITHROMYCIN 500 MG TAB PO SCH (09:00)
[2022-07-09] MEDS ORDERED: predniSONE 20 MG TAB PO SCH (09:00)
[2022-07-09] MEDS ORDERED: BUTALB/APAP/CAFF 50-325-40MG TAB PO PRN (10:51)
[2022-07-09] MEDS ORDERED: IPRATROPIUM-ALBUTEROL 3 ML NEB INHALATION PRN (10:52)
[2022-07-09] MEDS: FORMOTEROL FUMARATE 20 MCG/2 ML NEBU INHALATION SCH ×2 (11:39→20:30)
[2022-07-09] MEDS: IPRATROPIUM-ALBUTEROL 3 ML NEB INHALATION SCH ×3 (11:40→20:30)
[2022-07-09] MEDS: BENZONATATE 100 MG CAP PO PRN ×2 (12:07→19:34)
[2022-07-09] MEDS: LEVOFLOXACIN 500MG-D5W PMX 500 MG in DEXTROSE/WATER 1 100ML.BAG IVPB SCH (12:07)
[2022-07-09 12:10] VITALS: BMI 47.2
--- NOTE | 2022-07-09 12:17 | HP ---
HISTORY AND PHYSICAL CHIEF COMPLAINT: Shortness of breath. HISTORY OF PRESENT ILLNESS: This is a 67-year-old woman with a past medical history of COPD, asthma, and multiple medical problems, complains of shortness of breath and sputum for past several days. The patient came to [facility]. D-dimer was slightly elevated. CT scan showed minimal infiltrates, possibly indicating bronchopneumonia. The patient has taken Zithromax outpatient. Patient is admitted for further evaluation and treatment. There is no history of any fever, rigors, or chills. PAST MEDICAL HISTORY: Reviewed, include COPD, asthma, rest of the history and rest of the chart is also reviewed. HOME MEDICATIONS: Reviewed include Requip, doses and rest of medications reviewed. ALLERGIES: Reviewed include codeine, rest of allergies reviewed. FAMILY HISTORY: History of CAD. SOCIAL HISTORY: No history of smoking or alcohol intake. REVIEW OF SYSTEMS: A 14-point review is negative except as mentioned earlier. PHYSICAL EXAMINATION: VITAL SIGNS: Pulse is 63, blood pressure 105/56, respirations 20, temperaturen HEENT: Conjunctivae normal. CARDIOVASCULAR: S1, S2. NECK: No jugular venous distention. RESPIRATIONS: Few scattered rhonchi, no crackles. Expiratory wheezing. ABDOMEN: Soft, nontender. LEGS: No edema, no swelling. NERVOUS SYSTEM: No focal deficits. SKIN: No ulcer, rash, bleeding. JOINTS: No active deforming arthropathy. LABORATORY DATA: Reviewed. ASSESSMENT: 1. Chronic obstructive pulmonary disease, bronchial asthma, acute exacerbation with possible bronchopneumonia with failure of outpatient treatment. 2. History of deep vein thrombosis. 3. Fibromyalgia. 4. Hypertension. 5. Hyperlipidemia. 6. History of multiple medical issues. DISCUSSION AND RECOMMENDATIONS: In this 67-year-old woman who presented with multiple complex medical issues, we will monitor the patient closely. We will optimize the bronchodilator treatment, IV steroids. I would also recommend empiric antibiotics, follow the cultures. Overall prognosis guarded because of multiple complex medical issues. Further recommendations to follow, closely follow with Pulmonary. MMODL / IJN: [id number] / [facility]
--- NOTE | 2022-07-09 13:08 | P.CNPUL ---
History of Present Illness Consult date: 07/09/22 Requesting physician: Sophia Mccoy Reason for consult: dyspnea, cough Chief complaint: Shortness of breath, cough, chest pain History of present illness: This is a very pleasant 67-year-old female patient with a known history of coronary artery disease, CVA with right-sided weakness, PE/DVT, GI bleed, hypertension, hyperlipidemia, obstructive sleep apnea not on CPAP, hypothyroidism, morbid obesity with previous Alex-en-Y gastric bypass, tachycardia Subu syndrome, congestive heart failure, anxiety/depression. Lifelong nonsmoker. She presented here to the emergency room yesterday with a 1 week history of increasing shortness of breath cough and congestion. She was treated with antibiotics and steroids without much improvement. Chest x-ray reveals no acute pulmonary process. CT angiogram ruled out pulmonary embolism. There was some patchy small areas of groundglass attenuation in the bilateral upper lobes. Evidence of previous gastric surgery with hiatal hernia. Nonspecific right hilar adenopathy. White count 8.4. Hemoglobin 10.6. Platelets 478. D-dimer 0.84. Sodium 1:30. Potassium 4.2. Chloride 102. BUN 19. Creatinine 0.60. AST 23. ALT 18. ProBNP 505. Influenza screen negative. RSV screen negative. COVID-19 screen negative. She is seen today in [facility] on the regular medical floor. Sitting up at the bedside. Awake and alert in no acute distress. Maintaining O2 saturations up to 99% on 4 L/m per nasal cannula. She's been afebrile. Hemodynamically stable. She's been initiated and DuoNeb inhalations, Pulmicort and Perforomist inhalations, antibiotics in the form of Levaquin. Review of Systems REVIEW OF SYSTEMS: CONSTITUTIONAL: Denies any recent significant weight loss or weight gain. EYES: Denies change in vision. EARS, NOSE, MOUTH, THROAT: Denies headaches, denies sore throat. CARDIOVASCULAR: Denies chest pain, palpitations or syncopal episodes. RESPIRATORY: Positive for shortness of breath, cough, congestion no hemoptysis. GASTROINTESTINAL: Denies change in appetite, denies abdominal pain GENITOURINARY: Denies hematuria, denies infections. MUSKULOSKELETAL: Denies pain, denies swelling. INTEGUMENTARY: Denies rash, denies eczema. NEUROLOGICAL: Denies recent memory loss, no recent seizure activity. PSYCHIATRIC: Denies anxiety, denies depression. HEMATOLOGIC/LYMPHATIC: Denies anemia, denies enlarged lymph nodes. Past Medical History Past Medical History: Asthma, Coronary Artery Disease (CAD), Chest Pain / Angina, Heart Failure, COPD, CVA/TIA, Deep Vein Thrombosis (DVT), Fibromyalgia, GERD/Reflux, GI Bleed, Hearing Disorder / Deafness, Hyperlipidemia, H ypertension, Memory Impairment, Myocardial Infarction (AL), Osteoarthritis (OA), Pneumonia, Pulmonary Embolus (PE), Respiratory Disorder, Seizure Disorder, Skin Disorder, Sleep Apnea/CPAP/BIPAP, Thyroid Disorder Additional Past Medical History / Comment(s): 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 Alex-en-Y gastric bypass for morbid obesity, has home o2 that was prescribed in 2019 but currently does not use Last Myocardial Infarction Date:: 2002 History of Any Multi-Drug Resistant Organisms: None Reported Past Surgical History: Bariatric Surgery, Hernia Repair, Hysterectomy, Joint Replacement, Orthopedic Surgery, Tubal Ligation Additional Past Surgical History / Comment(s): 10/19/19 PCI with stent, EGDs, colonoscopy/benign polyps, gastric bypass with revision, ventral and hiatal hernia repair, bladder suspension, R rotator curr repair/revision, L knee arthroscopy, rectocele, perinealplasty, 07/05/20 left shoulder replacement, 11/11/21 right shoulder replacement Past Anesthesia/Blood Transfusion Reactions: Motion Sickness Past Psychological History: Anxiety, Depression Smoking Status: Never smoker Past Alcohol Use History: None Reported Past Drug Use History: None Reported - Past Family History Mother Family Medical History: Coronary Artery Disease (CAD), Eye Disorder Additional Family Medical History / Comment(s): Mother is 91 yrs old Father Family Medical History: Myocardial Infarction (AL) Additional Family Medical History / Comment(s): Father of a massive AL at the age of 53 yrs. Medications and Allergies Home Medications Medication Instructions Recorded Confirmed Type rOPINIRole HCL [Requip] 3 mg PO TID 11/09/17 07/08/22 History Hydrocodone/Acetaminophen [[place] 1 tab PO QID PRN 10/18/19 07/08/22 History 7.5-325] ARIPiprazole [Abilify] 5 mg PO HS 01/07/22 07/08/22 History Amitriptyline HCl [Elavil] 100 mg PO HS 01/07/22 07/08/22 History Apixaban [Eliquis] 5 mg PO BID 01/07/22 07/08/22 History Atorvastatin [Lipitor] 20 mg PO HS 01/07/22 07/08/22 History Cyclobenzaprine [Flexeril] 5 mg PO BID PRN 01/07/22 07/08/22 History Gabapentin [Neurontin] 800 mg PO TID 01/07/22 07/08/22 History Vortioxetine Hydrobromide 20 mg PO HS 01/07/22 07/08/22 History [Trintellix] buPROPion XL [Wellbutrin XL] 300 mg PO DAILY 01/07/22 07/08/22 History hydrOXYzine pamoate [Vistaril] 50 mg PO TID PRN 01/07/22 07/08/22 History Famotidine [Pepcid] 20 mg PO BID #60 tab 01/08/22 07/08/22 Rx Azithromycin [Zithromax Z Pack] See Taper PO DAILY 07/08/22 07/08/22 History Butalb/APAP/Caff 50-325-40Mg 1 tab PO BID PRN 07/08/22 07/08/22 History [Fioricet 50-325-40] Diclofenac Potassium [Cataflam] 50 mg PO BID 07/08/22 07/08/22 History Diclofenac Sodium Gel [Voltaren 4 gm TOPICAL QID PRN 07/08/22 07/08/22 History Gel] Furosemide [Lasix] 40 mg PO DAILY 07/08/22 07/08/22 History Ipratropium-Albuterol Nebulize 3 ml INHALATION RT-QID PRN 07/08/22 07/08/22 History [Duoneb 0.5 mg-3 mg/3 ml Soln] predniSONE See Taper PO DAILY 07/08/22 07/08/22 History Allergies Allergy/AdvReac Type Severity Reaction Status Date / Time cefprozil [From Cefzil] Allergy Unknown Verified 07/08/22 20:04 Sulfa (Sulfonamide Allergy Rash/Hives Verified 07/08/22 20:04 Antibiotics) valdecoxib [From Bextra] Allergy Unknown Verified 07/08/22 20:04 codeine AdvReac DIFFICULTY Verified 07/08/22 20:04 URINATING metaxalone [From Skelaxin] AdvReac Nausea & Verified 07/08/22 20:04 Vomiting Physical Exam Vitals: Vital Signs Temp Pulse Pulse Resp BP BP Pulse Ox 07/09/22 11:54 72 07/09/22 11:40 72 07/09/22 08:39 70 07/09/22 08:21 70 99 07/09/22 08:00 63 20 07/09/22 07:05 97.5 F L 63 20 105/56 99 07/09/22 00:47 68 16 126/68 98 07/08/22 23:24 98.0 F 72 16 160/68 100 07/08/22 22:18 74 18 154/74 97 07/08/22 20:31 78 07/08/22 20:23 72 07/08/22 19:37 96 07/08/22 19:10 98.3 F 80 20 172/91 96 Intake and Output 07/08/22 07/09/22 07/09/22 22:59 06:59 14:59 Output Total 425 Balance -425 Output: Urine 425 Other: Weight 117.027 kg 117.027 kg 117.027 kg GENERAL EXAM: Alert, pleasant 59-year-old female, 4 L nasal cannula, comfortable in no apparent distress. HEAD: Normocephalic. EYES: Normal reaction of pupils, equal size. NOSE: Clear with pink turbinates. THROAT: No erythema or exudates. NECK: No masses, no JVD. CHEST: No chest wall deformity. LUNGS: Equal air entry with few scattered rhonchi. CVS: S1 and S2 normal with no audible murmur, regular rhythm. ABDOMEN: No hepatosplenomegaly, normal bowel sounds, no guarding or rigidity. SPINE: No scoliosis or deformity SKIN: No rashes CENTRAL NERVOUS SYSTEM: No focal deficits, tone is normal in all 4 extremities. EXTREMITIES: There is no peripheral edema. No clubbing, no cyanosis. Peripheral pulses are intact. Results - Laboratory Findings CBC and BMP: 07/08/22 19:30 07/08/22 19:30 PT/INR, D-dimer PT 9.5 sec (9.0-12.0) 07/08/22 19:30 INR 0.9 (<1.2) 07/08/22 19:30 D-Dimer 0.84 mg/L FEU (<0.60) H 07/08/22 19:30 Abnormal lab findings: Abnormal Labs 07/08/22 07/08/22 07/08/22 19:30 19:30 19:30 Hgb 10.6 L MCH 24.2 L MCHC 30.2 L RDW 16.8 H Plt Count 478 H D-Dimer 0.84 H BUN 19 H Alkaline Phosphatase 127 H - Diagnostic Findings Chest x-ray: image reviewed CT scan - chest: image reviewed Assessment and Plan Assessment: Acute hypoxemic respiratory failure secondary to an acute episode of tracheobronchitis without clear evidence of pneumonia. Pro-calcitonin pending also Morbid obesity, status post Alex-en-Y gastric bypass surgery Chronic pain syndrome History of PE/DVT, anticoagulated with Eliquis Hypothyroidism Hypertension Obstructive sleep apnea not on CPAP therapy History of GI bleed Hyperlipidemia Coronary disease with previous stent placement Fibromyalgia History of CVA/TIA with some right-sided weakness Peripheral neuropathy Spondylosis Plan: The patient was seen and evaluated Chest x-ray, CAT scan, medications and labs reviewed Procalcitonin pending Continue bronchodilators Continue prednisone taper Continue empiric antibiotics for now Titrate down the FiO2 as tolerated We will continue to follow and make further recommendations based on her clinical status I have personally seen and examined the patient, performed the documentation and the assessment and plan as written. Number of minutes spent on the visit: 20.
[2022-07-09] MEDS: predniSONE 20 MG TAB PO SCH (13:18)
[2022-07-09] MEDS: BUDESONIDE 1 MG/2 ML NEBU INHALATION SCH (20:30)
[2022-07-09] MEDS: VORTIOXETINE HYDROBROMIDE 20 MG TABLET PO SCH (21:04)
[2022-07-09] MEDS: ARIPiprazole 5 MG TAB PO SCH (21:04)
[2022-07-09] MEDS: AMITRIPTYLINE HCL 50 MG TAB PO SCH (21:04)
[2022-07-09] MEDS: ATORVASTATIN 20 MG TAB PO SCH (21:04)
[2022-07-10] MEDS: HYDROcodone/APAP 7.5-325MG 1 EACH TAB PO PRN ×3 (01:53→20:35)
[2022-07-10] MEDS ORDERED: HYDROmorphone 0.5 MG/0.5 ML SYRINGE IVP STA (02:08)
[2022-07-10] MEDS: GABAPENTIN 400 MG CAP PO SCH ×3 (07:37→21:31)
[2022-07-10] MEDS: FUROSEMIDE 40 MG TAB PO SCH (07:38)
[2022-07-10] MEDS: APIXABAN 5 MG TAB PO SCH ×2 (07:38→20:32)
[2022-07-10] MEDS: FAMOTIDINE 20 MG TAB PO SCH ×2 (07:38→20:32)
[2022-07-10] MEDS: predniSONE 20 MG TAB PO SCH (07:38)
[2022-07-10] MEDS: PANTOPRAZOLE 40 MG TABLET PO SCH (07:38)
[2022-07-10] MEDS: buPROPion XL 300 MG TAB.ER.24H PO SCH (07:39)
[2022-07-10] MEDS: BUDESONIDE 1 MG/2 ML NEBU INHALATION SCH ×2 (08:15→19:52)
[2022-07-10] MEDS: FORMOTEROL FUMARATE 20 MCG/2 ML NEBU INHALATION SCH ×2 (08:15→19:52)
[2022-07-10] MEDS: IPRATROPIUM-ALBUTEROL 3 ML NEB INHALATION SCH ×4 (08:15→19:52)
[2022-07-10] MEDS: IPRATROPIUM 0.5 MG/2.5 ML NEBU INHALATION SCH ×4 (08:16→19:51)
[2022-07-10] MEDS: BENZONATATE 100 MG CAP PO PRN ×2 (08:54→21:33)
[2022-07-10 10:46] LABS: Basophils # (A) 0.01 X 10*3/uL (0.00-0.10); Basophils % (A) 0.2 %; Eosinophils # (A) 0 X 10*3/uL (0.04-0.35); Eosinophils % (A) 0 %; HCT 30.1 % (37.2-46.3); HGB 8.7 g/dL (12.0-15.0); Immature Grans, Automated 0.6 %; Lymphocytes # (A) 1.74 X 10*3/uL (0.90-5.00); Lymphocytes % (A) 26.5 %; MCH 24.2 pg (27.0-32.0); MCHC 28.9 g/dL (32.0-37.0); MCV 83.6 fL (80.0-97.0); Mean Platelet Volume 9.6 fL (9.5-12.2); Monocytes % (A) 13.7 %; NRBC Per 100 WBC 0 /100 WBCS (0.0-0.0); Neutrophils # (A) 3.88 X 10*3/uL (1.80-7.70); Platelet Count 378 X 10*3/uL (140-440); RDW 17.5 % (11.5-14.5); WBC 6.57 X 10*3/uL (4.50-10.00)
[2022-07-10 11:04] LABS: African American GFR (CKD) 105.2 (60.0-200.0); Anion Gap 7.4 mmol/L (10.00-18.00); BUN/Creat Ratio 31.82 Ratio (12.00-20.00); Calcium 8.6 mg/dL (8.7-10.3); Carbon Dioxide 27.4 mmol/L (20.0-27.5); Non-African American GFR(CKD) 90.8 (60.0-200.0); Potassium 5.1 mmol/L (3.5-5.5)
--- NOTE | 2022-07-10 11:07 | P.PN ---
Subjective Progress Note Date: 07/10/22 This is a very pleasant 67-year-old female patient with a known history of coronary artery disease, CVA with right-sided weakness, PE/DVT, GI bleed, hypertension, hyperlipidemia, obstructive sleep apnea not on CPAP, hypothyroidism, morbid obesity with previous Alex-en-Y gastric bypass, tachycardia Subu syndrome, congestive heart failure, anxiety/depression. Lifelong nonsmoker. She presented here to the emergency room yesterday with a 1 week history of increasing shortness of breath cough and congestion. She was treated with antibiotics and steroids without much improvement. Chest x-ray reveals no acute pulmonary process. CT angiogram ruled out pulmonary embolism. There was some patchy small areas of groundglass attenuation in the bilateral upper lobes. Evidence of previous gastric surgery with hiatal hernia. Nonspecific right hilar adenopathy. White count 8.4. Hemoglobin 10.6. Plate lets 478. D-dimer 0.84. Sodium 1:30. Potassium 4.2. Chloride 102. BUN 19. Creatinine 0.60. AST 23. ALT 18. ProBNP 505. Influenza screen negative. RSV screen negative. COVID-19 screen negative. She is seen today in consultation on the regular medical floor. Sitting up at the bedside. Awake and alert in no acute distress. Maintaining O2 saturations up to 99% on 4 L/m per nasal cannul a. She's been afebrile. Hemodynamically stable. She's been initiated and DuoNeb inhalations, Pulmicort and Perforomist inhalations, antibiotics in the form of Levaquin. The patient is seen today 07/10/2022 in follow-up on the regular medical floor. She is currently sitting up in bed. Awake and alert in no acute distress. Breathing a bit easier today compared to yesterday. Not quite back to her baseline. Her cough has improved with the Tessalon Perles. White count 6.5. Hemoglobin 8.7. Platelet 378. She is continued on DuoNeb inhalations, Pulmicort and Perforomist inhalations, prednisone taper. Antibiotics in the form of Levaquin. Pro-calcitonin pending. Objective - Vital Signs Vital signs: Vital Signs Temp 98.5 F 07/10/22 07:10 Pulse 78 07/10/22 08:37 Resp 19 07/10/22 07:10 BP 137/89 07/10/22 07:10 Pulse Ox 94 L 07/10/22 08:16 FiO2 Intake & Output 07/09/22 07/10/22 07/10/22 18:59 06:59 18:59 Intake Total 111 Balance 111 Weight 117.027 kg Intake: Oral 111 Other: Voiding Method External Catheter # Voids 4 # Bowel Movements 1 - Exam GENERAL EXAM: Alert, pleasant 59-year-old female, sitting up in bed, 3 L nasal cannula, comfortable in no apparent distress. HEAD: Normocephalic. EYES: Normal reaction of pupils, equal size. NOSE: Clear with pink turbinates. THROAT: No erythema or exudates. NECK: No masses, no JVD. CHEST: No chest wall deformity. LUNGS: Equal air entry with few scattered rhonchi. CVS: S1 and S2 normal with no audible murmur, regular rhythm. ABDOMEN: No hepatosplenomegaly, normal bowel sounds, no guarding or rigidity. SPINE: No scoliosis or deformity SKIN: No rashes CENTRAL NERVOUS SYSTEM: No focal deficits, tone is normal in all 4 extremities. EXTREMITIES: There is no peripheral edema. No clubbing, no cyanosis. Peripheral pulses are intact. - Labs CBC & Chem 7: 07/10/22 05:58 07/08/22 19:30 Labs: Abnormal Lab Results - Last 24 Hours (Table) 07/10/22 Range/Units 05:58 RBC 3.60 L (4.10-5.20) X 10*6/uL Hgb 8.7 L (12.0-15.0) g/dL Hct 30.1 L (37.2-46.3) % MCH 24.2 L (27.0-32.0) pg MCHC 28.9 L (32.0-37.0) g/dL RDW 17.5 H (11.5-14.5) % Eosinophils # 0 L (0.04-0.35) X 10*3/uL Assessment and Plan Assessment: Acute hypoxemic respiratory failure secondary to an acute episode of tracheobronchitis without clear evidence of pneumonia. Pro-calcitonin pending, currently on Levaquin Morbid obesity, status post Alex-en-Y gastric bypass surgery 30 years ago Hiatal hernia Chronic pain syndrome History of PE/DVT, anticoagulated with Eliquis Hypothyroidism Hypertension Obstructive sleep apnea not on CPAP therapy History of GI bleed Hyperlipidemia Coronary disease with previous stent placement Fibromyalgia History of CVA/TIA with some right-sided weakness Peripheral neuropathy Spondylosis Plan: The patient was seen and evaluated Medications and labs reviewed Procalcitonin pending, currently on Levaquin Continue bronchodilators Continue prednisone taper Titrate down the FiO2 as tolerated Patient does have home oxygen Probable discharge in a.m. We will continue to follow I have personally seen and examined the patient, performed the documentation and the assessment and plan as written. Number of minutes spent on the visit: 10.
[2022-07-10] MEDS: LEVOFLOXACIN 500MG-D5W PMX 500 MG in DEXTROSE/WATER 1 100ML.BAG IVPB SCH (11:55)
[2022-07-10] MEDS: ATORVASTATIN 20 MG TAB PO SCH (20:32)
[2022-07-10] MEDS: AMITRIPTYLINE HCL 50 MG TAB PO SCH (20:32)
[2022-07-10] MEDS: ARIPiprazole 5 MG TAB PO SCH (20:32)
[2022-07-10] MEDS: VORTIOXETINE HYDROBROMIDE 20 MG TABLET PO SCH (20:32)
[2022-07-10] MEDS ORDERED: DICLOFENAC SODIUM GEL 100 GM TUBE TOPICAL PRN (21:47)
[2022-07-10] MEDS: hydrOXYzine pamoate 25 MG CAP PO PRN (23:55)
--- NOTE | 2022-07-11 01:09 | PN ---
PROGRESS NOTE DATE OF SERVICE: 07/10/2022 SUBJECTIVE: This is a 67-year-old woman, who was admitted with COPD acute exacerbation, on intensive bronchodilators and IV steroids. At this time, the patient is still having shortness of breath. Dr. Otto is following the patient closely. No chest pain. No palpitation. OBJECTIVE: VITAL SIGNS: Pulse 78, blood pressure 137/80, respirations 19. CHEST: A few bilateral scattered rhonchi. ABDOMEN: Soft, nontender. NERVOUS SYSTEM: Nonfocal. LABORATORY DATA: Reviewed. ASSESSMENT: Hemoglobin 8.7. ASSESSMENT: 1. Chronic obstructive pulmonary disease acute exacerbation with possibly bronchopneumonia with failure of outpatient treatment. 2. History of deep vein thrombosis. 3. Fibromyalgia. 4. Hypertension. 5. Hyperlipidemia. 6. History of multiple medical issues. RECOMMENDATIONS AND DISCUSSION: Recommend to continue current management, continue symptomatic treatment. Continue with bronchodilators. Continue with IV steroids. Continue with empiric antibiotics. The prognosis is extremely guarded. The patient needs to be in full inpatient admission lasting for more than 2 nights. I have put the order yesterday, but somehow the patient still remains on observation, so please note prognosis guarded. MMODL / IJN: [id number] /
[2022-07-11] MEDS: HYDROcodone/APAP 7.5-325MG 1 EACH TAB PO PRN (05:09)
[2022-07-11 07:19] VITALS: BP 102/66; RESP 18; TEMP 97.6
[2022-07-11] MEDS: IPRATROPIUM 0.5 MG/2.5 ML NEBU INHALATION SCH ×2 (07:42→10:59)
[2022-07-11] MEDS: BUDESONIDE 1 MG/2 ML NEBU INHALATION SCH (07:42)
[2022-07-11] MEDS: IPRATROPIUM-ALBUTEROL 3 ML NEB INHALATION SCH ×2 (07:42→10:59)
[2022-07-11] MEDS: FORMOTEROL FUMARATE 20 MCG/2 ML NEBU INHALATION SCH (07:42)
[2022-07-11] MEDS: APIXABAN 5 MG TAB PO SCH (08:40)
[2022-07-11] MEDS: predniSONE 20 MG TAB PO SCH (08:40)
[2022-07-11] MEDS: GABAPENTIN 400 MG CAP PO SCH (08:41)
[2022-07-11] MEDS: buPROPion XL 300 MG TAB.ER.24H PO SCH (08:41)
[2022-07-11] MEDS: FUROSEMIDE 40 MG TAB PO SCH (08:41)
[2022-07-11] MEDS: FAMOTIDINE 20 MG TAB PO SCH (08:41)
[2022-07-11] MEDS: PANTOPRAZOLE 40 MG TABLET PO SCH (08:41)
--- NOTE | 2022-07-11 09:29 | P.DS ---
Providers Date of admission: 07/09/22 10:56 Expected date of discharge: 07/11/22 Attending physician: Edd Lee MD Consults: 07/08/22 22:04 Consult Physician Routine Consulting Provider: Bhavik Alcantara Consult Reason/Comments: COPD exacerbation Do you want consulting provider notified?: Yes Primary care physician: Edd Lee MD Hospital Course: This is a very pleasant 67-year-old female patient with a known history of coronary artery disease, CVA with right-sided weakness, PE/DVT, GI bleed, hypertension, hyperlipidemia, obstructive sleep apnea not on CPAP, hypot hyroidism, morbid obesity with previous Alex-en-Y gastric bypass, tachycardia Subu syndrome, congestive heart failure, anxiety/depression. Lifelong nonsmoker. She presented here to the emergency room yesterday with a 1 week history of increasing shortness of breath cough and congestion. She was treated with antibiotics and steroids without much improvement. Chest x-ray reveals no acute pulmonary process. CT angiogram ruled out pulmonary embolism. There was some patchy small areas of groundglass attenuation in the bilateral upper lobes. Evidence of previous gastric surgery with hiatal hernia. Nonspecific right hilar adenopathy. White count 8.4. Hemoglobin 10.6. Platelets 478. D-dimer 0.84. Sodium 1:30. Potassium 4.2. Chloride 102. BUN 19. Creatinine 0.60. AST 23. ALT 18. ProBNP 505. Influenza screen negative. RSV screen negative. COVID-19 screen negative. She is seen today in consultation on the regular medical floor. Sitting up at the bedside. Awake and alert in no acute distress. Maintaining O2 saturations up to 99% on 4 L/m per nasal cannula. She's been afebrile. Hemodynamically stable. She's been initiated and DuoNeb inhalations, Pulmicort and Perforomist inhalations, antibiotics in the form of Levaquin. Pt admitted to medicine, seen by Pulmonology. She was started on duonebs, IV and inhaled steroids and levaquin. Pt with significant clinical improvement, weaned off oxygen and states cough now back to baseline. Her procalcitonin resolved at 0.06. She was cleared by pulmonology; pt discharged in stable condition and recommended to complete pred taper and follow up with her PCP as an outpatient. Patient Condition at Discharge: Fair Plan - Discharge Summary Discharge Rx Participant: No New Discharge Prescriptions: New predniSONE 0 mg PO DIRECTED #18 tab Continue rOPINIRole HCL [Requip] 3 mg PO TID Hydrocodone/Acetaminophen [[place] 7.5-325] 1 tab PO QID PRN PRN Reason: Pain Gabapentin [Neurontin] 800 mg PO TID Apixaban [Eliquis] 5 mg PO BID Cyclobenzaprine [Flexeril] 5 mg PO BID PRN PRN Reason: Pain Atorvastatin [Lipitor] 20 mg PO HS Amitriptyline HCl [Elavil] 100 mg PO HS Famotidine [Pepcid] 20 mg PO BID #60 tab Furosemide [Lasix] 40 mg PO DAILY Vortioxetine Hydrobromide [Trintellix] 20 mg PO HS hydrOXYzine pamoate [Vistaril] 50 mg PO TID PRN PRN Reason: Anxiety buPROPion XL [Wellbutrin XL] 300 mg PO DAILY ARIPiprazole [Abilify] 5 mg PO HS Butalb/APAP/Caff 50-325-40Mg [Fioricet 50-325-40] 1 tab PO BID PRN PRN Reason: Migraine Headache Diclofenac Potassium [Cataflam] 50 mg PO BID Diclofenac Sodium Gel [Voltaren Gel] 4 gm TOPICAL QID PRN PRN Reason: Pain Ipratropium-Albuterol Nebulize [Duoneb 0.5 mg-3 mg/3 ml Soln] 3 ml INHALATION RT-QID PRN PRN Reason: Shortness Of Breath Discontinued Azithromycin [Zithromax Z Pack] See Taper PO DAILY predniSONE See Taper PO DAILY Discharge Medication List rOPINIRole HCL [Requip] 3 mg PO TID 11/09/17 [History] Hydrocodone/Acetaminophen [[place] 7.5-325] 1 tab PO QID PRN 10/18/19 [History] ARIPiprazole [Abilify] 5 mg PO HS 01/07/22 [History] Amitriptyline HCl [Elavil] 100 mg PO HS 01/07/22 [History] Apixaban [Eliquis] 5 mg PO BID 01/07/22 [History] Atorvastatin [Lipitor] 20 mg PO HS 01/07/22 [History] Cyclobenzaprine [Flexeril] 5 mg PO BID PRN 01/07/22 [History] Gabapentin [Neurontin] 800 mg PO TID 01/07/22 [History] Vortioxetine Hydrobromide [Trintellix] 20 mg PO HS 01/07/22 [History] buPROPion XL [Wellbutrin XL] 300 mg PO DAILY 01/07/22 [History] hydrOXYzine pamoate [Vistaril] 50 mg PO TID PRN 01/07/22 [History] Famotidine [Pepcid] 20 mg PO BID #60 tab 01/08/22 [Rx] Butalb/APAP/Caff 50-325-40Mg [Fioricet 50-325-40] 1 tab PO BID PRN 07/08/22 [History] Diclofenac Potassium [Cataflam] 50 mg PO BID 07/08/22 [History] Diclofenac Sodium Gel [Voltaren Gel] 4 gm TOPICAL QID PRN 07/08/22 [History] Furosemide [Lasix] 40 mg PO DAILY 07/08/22 [History] Ipratropium-Albuterol Nebulize [Duoneb 0.5 mg-3 mg/3 ml Soln] 3 ml INHALATION RT-QID PRN 07/08/22 [History] predniSONE 0 mg PO DIRECTED #18 tab 07/11/22 [Rx] Follow up Appointment(s)/Referral(s): Edd Lee MD [Primary Care Provider] - 1-2 days Discharge Disposition: HOME SELF-CARE
[2022-07-11 11:15] VITALS: PULSE 80
[2022-07-11] MEDS: LEVOFLOXACIN 500MG-D5W PMX 500 MG in DEXTROSE/WATER 1 100ML.BAG IVPB SCH (11:30)
--- NOTE | 2022-07-11 11:49 | P.PN ---
Subjective Progress Note Date: 07/11/22 This is a very pleasant 67-year-old female patient with a known history of coronary artery disease, CVA with right-sided weakness, PE/DVT, GI bleed, hypertension, hyperlipidemia, obstructive sleep apnea not on CPAP, hypothyroidism, morbid obesity with previous Alex-en-Y gastric bypass, tachycardia Subu syndrome, congestive heart failure, anxiety/depression. Lifelong nonsmoker. She presented here to the emergency room yesterday with a 1 week history of increasing shortness of breath cough and congestion. She was treated with antibiotics and steroids without much improvement. Chest x-ray reveals no acute pulmonary process. CT angiogram ruled out pulmonary embolism. There was some patchy small areas of groundglass attenuation in the bilateral upper lobes. Evidence of previous gastric surgery with hiatal hernia. Nonspecific right hilar adenopathy. White count 8.4. Hemoglobin 10.6. Plate lets 478. D-dimer 0.84. Sodium 1:30. Potassium 4.2. Chloride 102. BUN 19. Creatinine 0.60. AST 23. ALT 18. ProBNP 505. Influenza screen negative. RSV screen negative. COVID-19 screen negative. She is seen today in consultation on the regular medical floor. Sitting up at the bedside. Awake and alert in no acute distress. Maintaining O2 saturations up to 99% on 4 L/m per nasal cannul a. She's been afebrile. Hemodynamically stable. She's been initiated and DuoNeb inhalations, Pulmicort and Perforomist inhalations, antibiotics in the form of Levaquin. The patient is seen today 07/10/2022 in follow-up on the regular medical floor. She is currently sitting up in bed. Awake and alert in no acute distress. Breathing a bit easier today compared to yesterday. Not quite back to her baseline. Her cough has improved with the Tessalon Perles. White count 6.5. Hemoglobin 8.7. Platelet 378. She is continued on DuoNeb inhalations, Pulmicort and Perforomist inhalations, prednisone taper. Antibiotics in the form of Levaquin. Pro-calcitonin pending. The patient is seen today 07/11/2022 in follow-up on the regular medical floor. She is currently sitting up in bed. Awake and alert in no acute distress. She is maintaining good O2 saturations in the upper 90s on room air. She is feeling quite a bit better. Nearly back to her baseline. She did have some restless leg syndrome restlessness possibly due to the Perforomist and her inhalations which will be discontinued. Remains on DuoNeb inhalations, Pulmicort inhalations, Tessalon Perles and a prednisone taper. Continue on oral diuretics. Anticoagulated with Eliquis. Objective - Vital Signs Vital signs: Vital Signs Temp 97.6 F 07/11/22 06:56 Pulse 80 07/11/22 11:14 Resp 18 07/11/22 06:56 BP 102/66 07/11/22 06:56 Pulse Ox 98 07/11/22 07:45 FiO2 21 07/11/22 07:45 Intake & Output 07/10/22 07/11/22 07/11/22 18:59 06:59 18:59 Intake Total 100 830 Balance 100 830 Intake: Intake, IV Titration 100 Amount Levofloxacin 500Mg-D5w 100 Pmx 500 mg In Dextrose/ Water 1 100ml.bag @ 100 mls/hr IVPB Q24H [facility] Rx#: [id number] Oral 830 Other: Voiding Method External Catheter # Voids 3 1 # Bowel Movements 1 - Exam GENERAL EXAM: Alert, pleasant 59-year-old female, sitting up in bed, on room air , comfortable in no apparent distress. HEAD: Normocephalic. EYES: Normal reaction of pupils, equal size. NOSE: Clear with pink turbinates. THROAT: No erythema or exudates. NECK: No masses, no JVD. CHEST: No chest wall deformity. LUNGS: Equal air entry with few scattered rhonchi. CVS: S1 and S2 normal with no audible murmur, regular rhythm. ABDOMEN: No hepatosplenomegaly, normal bowel sounds, no guarding or rigidity. SPINE: No scoliosis or deformity SKIN: No rashes CENTRAL NERVOUS SYSTEM: No focal deficits, tone is normal in all 4 extremities. EXTREMITIES: There is no peripheral edema. No clubbing, no cyanosis. Peripheral pulses are intact. - Labs CBC & Chem 7: 07/10/22 05:58 07/10/22 05:52 Labs: Microbiology - Last 24 Hours (Table) 07/09/22 12:01 Blood Culture - Preliminary Blood No Growth after 24 hours Assessment and Plan Assessment: Acute hypoxemic respiratory failure secondary to an acute episode of tracheobronchitis without clear evidence of pneumonia. Pro-calcitonin normal at 0.06. Morbid obesity, status post Alex-en-Y gastric bypass surgery 30 years ago Hiatal hernia Chronic pain syndrome History of PE/DVT, anticoagulated with Eliquis Hypothyroidism Hypertension Obstructive sleep apnea not on CPAP therapy History of GI bleed Hyperlipidemia Coronary disease with previous stent placement Fibromyalgia History of CVA/TIA with some right-sided weakness Peripheral neuropathy Spondylosis Plan: The patient was seen and evaluated Medications and labs reviewed Procalcitonin normal at 0.06 Continue bronchodilators Discontinue Perforomist Continue prednisone taper Patient does have home oxygen Cleared for discharge from the pulmonary standpoint Follow-up in the office in 1 week I have personally seen and examined the patient, performed the documentation and the assessment and plan as written. Number of minutes spent on the visit: 10.
== END 2022-07-11 11:51 | disposition home or self-care (01) | DRG 190 ==
LOC: EC 19:04 → 5NMEDONC 21:59 → OBSVTOIN 07-09 10:56
PROVIDERS: ADMIT Family Medicine; ATTEND Family Medicine
DX: J44.1 Chronic obstructive pulmonary disease with (acute) exacerbation (principal); J96.01 Acute respiratory failure with hypoxia; I69.351 Hemiplegia and hemiparesis following cerebral infarction affecting right dominant side; J45.901 Unspecified asthma with (acute) exacerbation; Z68.42 Body mass index [BMI] 45.0-49.9, adult; J20.9 Acute bronchitis, unspecified; J44.0 Chronic obstructive pulmonary disease with (acute) lower respiratory infection; E66.01 Morbid (severe) obesity due to excess calories; Z20.822 Contact with and (suspected) exposure to COVID-19; G25.81 Restless legs syndrome; G40.909 Epilepsy, unspecified, not intractable, without status epilepticus; H91.90 Unspecified hearing loss, unspecified ear; H93.13 Tinnitus, bilateral; E03.9 Hypothyroidism, unspecified; E78.5 Hyperlipidemia, unspecified; G47.33 Obstructive sleep apnea (adult) (pediatric); G62.9 Polyneuropathy, unspecified; G89.4 Chronic pain syndrome; I50.9 Heart failure, unspecified; I27.20 Pulmonary hypertension, unspecified; I11.0 Hypertensive heart disease with heart failure; F32.A Depression, unspecified; I25.10 Atherosclerotic heart disease of native coronary artery without angina pectoris; F41.9 Anxiety disorder, unspecified; I25.2 Old myocardial infarction; K44.9 Diaphragmatic hernia without obstruction or gangrene; M47.9 Spondylosis, unspecified; M79.7 Fibromyalgia; Z79.01 Long term (current) use of anticoagulants; Z79.899 Other long term (current) drug therapy; M81.0 Age-related osteoporosis without current pathological fracture; Z82.49 Family history of ischemic heart disease and other diseases of the circulatory system; Z86.711 Personal history of pulmonary embolism; Z86.718 Personal history of other venous thrombosis and embolism; Z96.611 Presence of right artificial shoulder joint; Z95.5 Presence of coronary angioplasty implant and graft; Z96.612 Presence of left artificial shoulder joint; Z98.84 Bariatric surgery status; Z87.11 Personal history of peptic ulcer disease; Z86.010 Personal history of colon polyps; Z87.01 Personal history of pneumonia (recurrent); Z88.1 Allergy status to other antibiotic agents; Z88.5 Allergy status to narcotic agent; Z88.2 Allergy status to sulfonamides; Z88.8 Allergy status to other drugs, medicaments and biological substances; Z71.3 Dietary counseling and surveillance; K58.9 Irritable bowel syndrome, unspecified; Z91.81 History of falling
CPT/HCPCS: 36415; 71046; 71275; 80048; 80053; 83735; 83880; 84145; 84484; 85025; 85379; 85610; 85730; 87040; 87070; 87205; 87636; 93005; 94640; 94760; 96374; 99285

== ENCOUNTER 2022-09-24 04:55 | Emergency (ER) | payer MEDICARE ==
[2022-09-24 05:00] VITALS: RESP 22; TEMP 98.1
[2022-09-24] MEDS ORDERED: HYDROmorphone 1 MG/ML 1 ML SYRINGE IM STA (06:12)
[2022-09-24] MEDS ORDERED: HYDROcodone/APAP 10-325MG 1 EACH TAB PO ONE (06:12)
--- NOTE | 2022-09-24 06:18 | ED ---
Back Pain HPI - General Chief Complaint: Back Pain/Injury Stated Complaint: BACK PAIN Time Seen by Provider: 09/24/22 06:05 Source: patient, RN notes reviewed Mode of arrival: ambulatory Limitations: no limitations - History of Present Illness Initial Comments: 67-year-old female presents emergency Department chief complaint of back pain. This is a chronic problem in nature. She states that she ran out of her Alpha. Patient states she is supposed to get the day but from suicidal. Patient states that she had her battery replaced in her pain stimulator was found that her doctors on the right side were not functioning. She denies any bowel, bladder incontinence or retention of saddle anesthesias. She has complaint of radicular pain down her right leg which she states is not new. She has no difficulty walking. She states actually getting up and walking makes the pain feel better. She denies any fevers or chills denies any other associated symptoms. - Related Data Home Medications Medication Instructions Recorded Confirmed rOPINIRole HCL [Requip] 3 mg PO TID 11/09/17 07/08/22 Hydrocodone/Acetaminophen [Alpha 1 tab PO QID PRN 10/18/19 07/08/22 7.5-325] ARIPiprazole [Abilify] 5 mg PO HS 01/07/22 07/08/22 Amitriptyline HCl [Elavil] 100 mg PO HS 01/07/22 07/08/22 Apixaban [Eliquis] 5 mg PO BID 01/07/22 07/08/22 Atorvastatin [Lipitor] 20 mg PO HS 01/07/22 07/08/22 Cyclobenzaprine [Flexeril] 5 mg PO BID PRN 01/07/22 07/08/22 Gabapentin [Neurontin] 800 mg PO TID 01/07/22 07/08/22 Vortioxetine Hydrobromide 20 mg PO HS 01/07/22 07/08/22 [Trintellix] buPROPion XL [Wellbutrin XL] 300 mg PO DAILY 01/07/22 07/08/22 hydrOXYzine pamoate [Vistaril] 50 mg PO TID PRN 01/07/22 07/08/22 Butalb/APAP/Caff 50-325-40Mg 1 tab PO BID PRN 07/08/22 07/08/22 [Fioricet 50-325-40] Diclofenac Potassium [Cataflam] 50 mg PO BID 07/08/22 07/08/22 Diclofenac Sodium Gel [Voltaren 4 gm TOPICAL QID PRN 07/08/22 07/08/22 Gel] Furosemide [Lasix] 40 mg PO DAILY 07/08/22 07/08/22 Ipratropium-Albuterol Nebulize 3 ml INHALATION RT-QID PRN 07/08/22 07/08/22 [Duoneb 0.5 mg-3 mg/3 ml Soln] Previous Rx's Medication Instructions Recorded Famotidine [Pepcid] 20 mg PO BID #60 tab 01/08/22 predniSONE 0 mg PO DIRECTED #18 tab 07/11/22 Allergies Allergy/AdvReac Type Severity Reaction Status Date / Time cefprozil [From Cefzil] Allergy Unknown Verified 09/24/22 05:00 Sulfa (Sulfonamide Allergy Rash/Hives Verified 09/24/22 05:00 Antibiotics) valdecoxib [From Bextra] Allergy Unknown Verified 09/24/22 05:00 metaxalone [From Skelaxin] AdvReac Nausea & Verified 09/24/22 05:00 Vomiting Review of Systems ROS Statement: Those systems with pertinent positive or pertinent negative responses have been documented in the HPI. ROS Other: All systems not noted in ROS Statement are negative. Past Medical History Past Medical History: Asthma, Coronary Artery Disease (CAD), Chest Pain / Angina, Heart Failure, COPD, CVA/TIA, Deep Vein Thrombosis (DVT), Fibromyalgia, GERD/Reflux, GI Bleed, Hearing Disorder / Deafness, Hyperlipidemia, Hypertension, Memory Impairment, Myocardial Infarction (VA), Osteoarthritis (OA), Pneumonia, Pulmonary Embolus (PE), Respiratory Disorder, Seizure Disorder, Skin Disorder, Sleep Apnea/CPAP/BIPAP, Thyroid Disorder Additional Past Medical History / Comment(s): 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 Alex-en-Y gastric bypass for morbid obesity, has home o2 that was prescribed in 2020 but currently does not use Last Myocardial Infarction Date:: 2002 History of Any Multi-Drug Resistant Organisms: None Reported Past Surgical History: Bariatric Surgery, Hernia Repair, Hysterectomy, Joint Replacement, Orthopedic Surgery, Tubal Ligation Additional Past Surgical History / Comment(s): 10/19/19 PCI with stent, EGDs, colonoscopy/benign polyps, gastric bypass with revision, ventral and hiatal hernia repair, bladder suspension, R rotator curr repair/revision, L knee arthroscopy, rectocele, perinealplasty, 07/05/20 left shoulder replacement, 11/11/21 right shoulder replacement Past Anesthesia/Blood Transfusion Reactions: Motion Sickness Past Psychological History: Anxiety, Depression Smoking Status: Never smoker Past Alcohol Use History: None Reported Past Drug Use History: None Reported - Past Family History Mother Family Medical History: Coronary Artery Disease (CAD), Eye Disorder Additional Family Medical History / Comment(s): Mother is 91 yrs old Father Family Medical History: Myocardial Infarction (VA) Additional Family Medical History / Comment(s): Father of a massive VA at the age of 53 yrs. General Exam Limitations: no limitations General appearance: alert, in no apparent distress Head exam: Present: atraumatic, normocephalic, normal inspection Eye exam: Present: normal appearance, PERRL, EOMI. Absent: scleral icterus, conjunctival injection, periorbital swelling ENT exam: Present: normal exam, normal oropharynx, mucous membranes moist Neck exam: Present: normal inspection, full ROM. Absent: tenderness, meningismus, lymphadenopathy Respiratory exam: Present: normal lung sounds bilaterally. Absent: respiratory distress, wheezes, rales, rhonchi, stridor Cardiovascular Exam: Present: regular rate, normal rhythm, normal heart sounds. Absent: systolic murmur, diastolic murmur, rubs, gallop, clicks Back exam: Present: full ROM, tenderness, paraspinal tenderness. Absent: vertebral tenderness Neurological exam: Present: alert, oriented X3, CN II-XII intact, normal gait, reflexes normal. Absent: motor sensory deficit Course Vital Signs 09/24/22 04:58 Temperature 98.1 F Pulse Rate 117 H Respiratory 22 Rate Blood Pressure 165/106 O2 Sat by Pulse 99 Oximetry Medical Decision Making - Medical Decision Making Was pt. sent in by a medical professional or institution (CHARAN Adams, REFURBISH TECHNICIAN, urgent care, hospital, or long-term...) When possible be specific @ -No Did you speak to anyone other than the patient for history (EMS, parent, family, police, friend...)? What history was obtained from this source @ -No Did you review nursing and triage notes (agree or disagree)? Why? @ -I reviewed and agree with nursing and triage notes Were old charts reviewed (outside hosp., previous admission, EMS record, old EKG, old radiological studies, urgent care reports/EKG's, long-term records)? Report findings @ -Reviewed prior charts including labs, imaging Differential Diagnosis (chest pain, altered mental status, abdominal pain women, abdominal pain men, vaginal bleeding, weakness, fever, dyspnea, syncope, headache, dizziness, GI bleed, back pain, seizure, CVA, palpatations, mental health, musculoskeletal)? @ -Differential Back Pain: Strain, zoster, cauda equina syndrome, epidural abscess, vertebral osteomyelitis, discitis, fracture, subluxation, disc herniation, DJD, spinal stenosis, dissection, AAA, pancreatitis, peptic ulcer disease, pyelonephritis, kidney stone, this is not meant to be an all-inclusive list.le EKG interpreted by me (3pts min.). @ -None X-rays interpreted by me (1pt min.). @ -None done CT interpreted by me (1pt min.). @ -None done U/S interpreted by me (1pt. min.). @ -None done What testing was considered but not performed or refused? (CT, X-rays, U/S, labs)? Why? @ -Considered x-ray, CT though this is chronic without any acute injury What meds were considered but not given or refused? Why? @ -None Did you discuss the management of the patient with other professionals (professionals i.e. CHARAN Adams, REFURBISH TECHNICIAN, lab, RT, psych nurse, medical social consultant, metal can inspector, teacher, tourist information officer, onsite case manager)? Give summary @ -No Was smoking cessation discussed for >3mins.? @ -No Was critical care preformed (if so, how long)? @ -No Were there social determinants of health that impacted care today? How? (Homelessness, low income, unemployed, alcoholism, drug addiction, transportation, low edu. Level, literacy, decrease access to med. care, longterm, rehab)? @ -No Was there de-escalation of care discussed even if they declined (Discuss DNR or withdrawal of care, Hospice)? DNR status @ -No What co-morbidities impacted this encounter? (DM, HTN, Smoking, COPD, CAD, Cancer, CVA, ARF, Chemo, Hep., AIDS, mental health diagnosis, sleep apnea, morbid obesity)? @ -Chronic pain Was patient admitted / discharged? Hospital course, mention meds given and rout e, prescriptions, significant lab abnormalities, going to OR and other pertinent info. @ -Discharge patient provided pain relief patient's symptoms are chronic in nature no red flag symptoms or new symptoms. Patient is out of her pain medication. She is advised to follow-up with her neurologist/pain management return parameters were discussed. Undiagnosed new problem with uncertain prognosis? @ -No Drug Therapy requiring intensive monitoring for toxicity (Heparin, Nitro, Insulin, Cardizem)? @ -No Were any procedures done? @ -No Diagnosis/symptom? @ -Back pain Acute, or Chronic, or Acute on Chronic? @ -Acute chronic Uncomplicated (without systemic symptoms) or Complicated (systemic symptoms)? @ -Uncomplicated Side effects of treatment? @ -No Exacerbation, Progression, or Severe Exacerbation? @ -No Poses a threat to life or bodily function? How? (Chest pain, [place], [place], pneumonia, PE, COPD, DKA, ARF, appy, cholecystitis, CVA, Diverticulitis, Homicidal, Suicidal, threat to staff... and all critical care pts) @ -No Disposition Clinical Impression: Chronic pain, Lumbar radiculopathy, acute Disposition: HOME SELF-CARE Condition: Stable Instructions (If sedation given, give patient instructions): Chronic Pain (ED) Additional Instructions: Please return to the Emergency Department if symptoms worsen or any other concerns. Is patient prescribed a controlled substance at d/c from ED?: No Referrals: Edd Lee MD [Primary Care Provider] - 1-2 days Time of Disposition: 06:17
[2022-09-24 06:36] VITALS: BP 157/95; PULSE 106
== END 2022-09-24 07:10 | disposition home or self-care (01) ==
LOC: EC 04:55
DX: M54.16 Radiculopathy, lumbar region (principal); G89.29 Other chronic pain; I11.0 Hypertensive heart disease with heart failure; I25.10 Atherosclerotic heart disease of native coronary artery without angina pectoris; I25.2 Old myocardial infarction; I50.9 Heart failure, unspecified; J44.9 Chronic obstructive pulmonary disease, unspecified; K21.9 Gastro-esophageal reflux disease without esophagitis; E78.5 Hyperlipidemia, unspecified; F32.A Depression, unspecified; F41.9 Anxiety disorder, unspecified; G40.909 Epilepsy, unspecified, not intractable, without status epilepticus; M19.90 Unspecified osteoarthritis, unspecified site; M79.7 Fibromyalgia; E66.01 Morbid (severe) obesity due to excess calories; Z79.01 Long term (current) use of anticoagulants; Z79.899 Other long term (current) drug therapy; Z86.711 Personal history of pulmonary embolism; Z86.718 Personal history of other venous thrombosis and embolism; Z86.73 Personal history of transient ischemic attack (TIA), and cerebral infarction without residual deficits; Z88.2 Allergy status to sulfonamides; Z88.8 Allergy status to other drugs, medicaments and biological substances; Z95.5 Presence of coronary angioplasty implant and graft; Z98.84 Bariatric surgery status; Z68.42 Body mass index [BMI] 45.0-49.9, adult
CPT/HCPCS: 99284; 96372; J1170

== ENCOUNTER 2022-10-10 03:51 | Observation (INO) | payer MEDICARE ==
[2022-10-10] MEDS ORDERED: MORPHINE SULFATE 4 MG/ML SYRINGE IV STA (03:56)
[2022-10-10] MEDS ORDERED: SODIUM CHLORIDE 0.9% 500 ML 500 ML IV ONE (03:56)
[2022-10-10 04:45] LABS: Anisocytosis Slight; Basophils % (A) 0 %; Eosinophils # (A) 0.2 k/uL (0-0.7); Eosinophils % (A) 3 %; HCT 31.1 % (34.0-46.0); HGB 9.1 gm/dL (11.4-16.0); Hypochromasia Marked; Lymphocytes # (A) 1.8 k/uL (1.0-4.8); Lymphocytes % (A) 23 %; MCH 23.8 pg (25.0-35.0); MCHC 29.4 g/dL (31.0-37.0); MCV 80.8 fL (80.0-100.0); Mean Platelet Volume 7.5; Monocytes # (A) 0.5 k/uL (0-1.0); Monocytes % (A) 6 %; Neutrophils # (A) 5.2 k/uL (1.3-7.7); Neutrophils % (A) 66 %; Platelet Count 404 k/uL (150-450); RBC 3.85 m/uL (3.80-5.40); RDW 16.4 % (11.5-15.5); WBC 7.8 k/uL (3.8-10.6)
[2022-10-10 04:53] LABS: INR 0.9 (<1.2); Partial Thromboplastin Time 22.5 sec (22.0-30.0); Prothrombin Time 9.5 sec (9.0-12.0)
[2022-10-10 04:57] LABS: ALT 15 U/L (4-34); AST 27 U/L (14-36); African American GFR (CKD) >90 (>60 ml/min/1.73 sqM); Albumin 3.4 g/dL (3.5-5.0); Alkaline Phosphatase 105 U/L (38-126); Anion Gap 7 mmol/L; Blood Urea Nitrogen 18 mg/dL (7-17); Calcium 8.3 mg/dL (8.4-10.2); Carbon Dioxide 22 mmol/L (22-30); Chloride 107 mmol/L (98-107); Glucose 92 mg/dL (74-99); Non-African American GFR(CKD) >90 (>60 ml/min/1.73 sqM); Potassium 5.3 mmol/L (3.5-5.1); Sodium 136 mmol/L (137-145); Total Bilirubin 0.3 mg/dL (0.2-1.3); Total Protein 6.1 g/dL (6.3-8.2)
--- NOTE | 2022-10-10 06:24 | ED ---
General Adult HPI - General Chief complaint: Fall Stated complaint: Fall Time Seen by Provider: 10/10/22 03:55 Source: patient, EMS, RN notes reviewed, old records reviewed Mode of arrival: EMS Limitations: no limitations - History of Present Illness Initial comments: Patient is a 67-year-old female presents to the emergency department for a fall. She is on blood thinners for previous history of stroke. States it was mechanical fall. Patient describes the fall as tripping and feeling something pulling her to the ground. However she states that over the last few days she also has been feeling like she is been nodding off and is uncertain why. It is not occurred previously. She is endorsing some mild left knee and leg pain as well as some lower back pain. 4. Prior to arrival. Unknown if she passed out. Presents for further evaluation at this time. Denies any history of seizures. Denies any history of intracranial injuries. Denies any history of his recent chest pain or shortness of breath. - Related Data Home Medications Medication Instructions Recorded Confirmed rOPINIRole HCL [Requip] 3 mg PO TID 11/09/17 07/08/22 Hydrocodone/Acetaminophen [[place] 1 tab PO QID PRN 10/18/19 07/08/22 7.5-325] ARIPiprazole [Abilify] 5 mg PO HS 01/07/22 07/08/22 Amitriptyline HCl [Elavil] 100 mg PO HS 01/07/22 07/08/22 Apixaban [Eliquis] 5 mg PO BID 01/07/22 07/08/22 Atorvastatin [Lipitor] 20 mg PO HS 01/07/22 07/08/22 Cyclobenzaprine [Flexeril] 5 mg PO BID PRN 01/07/22 07/08/22 Gabapentin [Neurontin] 800 mg PO TID 01/07/22 07/08/22 Vortioxetine Hydrobromide 20 mg PO HS 01/07/22 07/08/22 [Trintellix] buPROPion XL [Wellbutrin XL] 300 mg PO DAILY 01/07/22 07/08/22 hydrOXYzine pamoate [Vistaril] 50 mg PO TID PRN 01/07/22 07/08/22 Butalb/APAP/Caff 50-325-40Mg 1 tab PO BID PRN 07/08/22 07/08/22 [Fioricet 50-325-40] Diclofenac Potassium [Cataflam] 50 mg PO BID 07/08/22 07/08/22 Diclofenac Sodium Gel [Voltaren 4 gm TOPICAL QID PRN 07/08/22 07/08/22 Gel] Furosemide [Lasix] 40 mg PO DAILY 07/08/22 07/08/22 Ipratropium-Albuterol Nebulize 3 ml INHALATION RT-QID PRN 07/08/22 07/08/22 [Duoneb 0.5 mg-3 mg/3 ml Soln] Previous Rx's Medication Instructions Recorded Famotidine [Pepcid] 20 mg PO BID #60 tab 01/08/22 predniSONE 0 mg PO DIRECTED #18 tab 07/11/22 Allergies Allergy/AdvReac Type Severity Reaction Status Date / Time cefprozil [From Cefzil] Allergy Unknown Verified 09/24/22 05:00 Sulfa (Sulfonamide Allergy Rash/Hives Verified 09/24/22 05:00 Antibiotics) valdecoxib [From Bextra] Allergy Unknown Verified 09/24/22 05:00 metaxalone [From Skelaxin] AdvReac Nausea & Verified 09/24/22 05:00 Vomiting Review of Systems ROS Statement: Those systems with pertinent positive or pertinent negative responses have been documented in the HPI. Review of Systems: CONST: Denies fever EYES: Denies blurry vision ENT: Denies nasal congestion C/V: Denies Chest pain RESP: Denies shortness of breath GI: Denies abdominal pain : Denies dysuria SKIN: Denies rash. MSK: Endorses joint pain NEURO: Denies headache ROS Other: All systems not noted in ROS Statement are negative. 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 Alex-en-Y gastric bypass for morbid obesity, has home o2 that was prescribed in 2019 but currently does not use Last Myocardial Infarction Date:: 2002 History of Any Multi-Drug Resistant Organisms: None Reported Past Surgical History: Bariatric Surgery, Hernia Repair, Hysterectomy, Joint Replacement, Orthopedic Surgery, Tubal Ligation Additional Past Surgical History / Comment(s): 10/19/19 PCI with stent, EGDs, colonoscopy/benign polyps, gastric bypass with revision, ventral and hiatal hernia repair, bladder suspension, R rotator curr repair/revision, L knee arthro scopy, rectocele, perinealplasty, 07/05/20 left shoulder replacement, 11/11/21 right shoulder replacement Past Anesthesia/Blood Transfusion Reactions: Motion Sickness Past Psychological History: Anxiety, Depression Smoking Status: Never smoker Past Alcohol Use History: Rare Past Drug Use History: None Reported - Past Family History Mother Family Medical History: Coronary Artery Disease (CAD), Eye Disorder Additional Family Medical History / Comment(s): Mother is 91 yrs old Father Family Medical History: Myocardial Infarction (DC) Additional Family Medical History / Comment(s): Father of a massive DC at the age of 53 yrs. General Exam - General Exam Comments Initial Comments: General: Appears in mild distress secondary to pain. HEAD: Normal with no signs of head trauma. Negative kelley sign. Negative raccoon eyes. EYES: PERRLA, EOMI, conjunctiva normal, no discharge. Pupils are 3 mm bilaterally. ENT: Hearing grossly intact, normal oropharynx. RESPIRATORY: Clear breath sounds bilaterally. No wheezes, rales, or rhonchi. C/V: Regular rate and rhythm. S1 and S2 auscultated, no edema, peripheral pulses 2+ and intact throughout ABD: Abd is soft, nontender, nondistended EXT: Normal range of motion, no obvious deformity. Pelvis is stable. Mild midline lumbar spine tenderness to palpation. No other midline spinal tenderness to palpation. No obvious step-offs or deformities. Extremities are unremarkable. SKIN: No rashes or lesions observed on exposed skin. NEURO: Alert and oriented x 4. Cranial nerves II-XII intact. No focal sensory or strength deficits. GCS of 15. NIH is 0. Limitations: no limitations Course Vital Signs 10/10/22 03:52 Temperature 98.3 F Pulse Rate 93 Respiratory 20 Rate Blood Pressure 119/64 O2 Sat by Pulse 94 L Oximetry Medical Decision Making - Medical Decision Making Was pt. sent in by a medical professional or institution (, PA, LADIES ATTENDANT, urgent care, hospital, or senior living...) When possible be specific @ -No Did you speak to anyone other than the patient for history (EMS, parent, family, police, friend...)? What history was obtained from this source @ -No Did you review nursing and triage notes (agree or disagree)? Why? @ -I reviewed and agree with nursing and triage notes Were old charts reviewed (outside hosp., previous admission, EMS record, old EKG, old radiological studies, urgent care reports/EKG's, senior living records)? Report findings @ -No old charts were reviewed Differential Diagnosis (chest pain, altered mental status, abdominal pain women, abdominal pain men, vaginal bleeding, weakness, fever, dyspnea, syncope, headache, dizziness, GI bleed, back pain, seizure, CVA, palpatations, mental health, musculoskeletal)? @ -Bony traumatic injury, muscle strains, muscle sprains, fall, intracranial injury, intracranial bleed, this list is not all inclusive EKG interpreted by me (3pts min.). @ -As above X-rays interpreted by me (1pt min.). @ -Chest, pelvis x-ray reveals no obvious acute injuries. Tib-fib x-ray reveals what appears to be degeneration with no focal tenderness on exam at the site of the lateral tibial plateau. CT interpreted by me (1pt min.). @ -CT brain, C-spine revealed no obvious injury or fracture. Degeneration present. CT lumbar spine reveals no obvious acute injury. U/S interpreted by me (1pt. min.). @ -None done What testing was considered but not performed or refused? (CT, X-rays, U/S, labs)? Why? @ -None What meds were considered but not given or refused? Why? @ -None Did you discuss the management of the patient with other professionals (althea cloud i.e. , PA, LADIES ATTENDANT, lab, RT, psych nurse, social service manager, mill turner, teacher, unclaimed property officer, manager of case)? Give summary @ -No Was smoking cessation discussed for >3mins.? @ -No Was critical care preformed (if so, how long)? @ -No Were there social determinants of health that impacted care today? How? (Homelessness, low income, unemployed, alcoholism, drug addiction, transportati on, low edu. Level, literacy, decrease access to med. care, residential, rehab)? @ -No Was there de-escalation of care discussed even if they declined (Discuss DNR or withdrawal of care, Hospice)? DNR status @ -No What co-morbidities impacted this encounter? (DM, HTN, Smoking, COPD, CAD, Cancer, CVA, ARF, Chemo, Hep., AIDS, mental health diagnosis, sleep apnea, morbid obesity)? @ -None Was patient admitted / discharged? Hospital course, mention meds given and route, prescriptions, significant lab abnormalities, going to OR and other pertinent info. @ -Based on the patient's presentation and physical exam, presents with a mechanical fall on blood thinners. Complaining of left knee pain, as well as lower spine pain. Patient also states she is been "nodding off" over the last few days an unknown as to why. We will obtain trauma labs, as well as CT brain and C-spine lower spine. Plain film x-rays of the chest pelvis and left leg will be obtained. She was in agreement with this plan. Vital signs within acceptable limits. Imaging shows chronic degenerative changes, with no acute process. Left leg x-ray shows concerning signs for the degeneration and possible tibial plateau injury however patient is able to ambulate on it and states pain is resolved. Patient's labs are within acceptable limits. EKG shows no evidence of acute ischemia. Patient does have mild hyperkalemia for which she received IV fluids and has no EKG changes. Patient's chronic anemia which is within her baseline. On reevaluation, patient has is not enough episodes a few times during our discussion. She seems conscious during them and feels them when they are present but states she doesn't know what is causing them. Top to evaluate whether these are voluntary or not. As she does have difficult time ambulating at home, I do not want her to have on his episodes while walking to fall and cause injury. Patient will be evaluated for neuro eval. I spoke with the a admitting physician, Dr. Lee who accepted the admission and requested I consult cardiology. Consult was placed. Patient ever chest pain. Undiagnosed new problem with uncertain prognosis? @ -No Drug Therapy requiring intensive monitoring for toxicity (Heparin, Nitro, Insulin, Cardizem)? @ -No Were any procedures done? @ -No Diagnosis/symptom? @ -Mechanical fall, muscle sprains Acute, or Chronic, or Acute on Chronic? @ -Acute Uncomplicated (without systemic symptoms) or Complicated (systemic symptoms)? @ -Complicated Side effects of treatment? @ -No Exacerbation, Progression, or Severe Exacerbation? @ -No Poses a threat to life or bodily function? How? (Chest pain, [place], DC, pneumonia, PE, COPD, DKA, ARF, appy, cholecystitis, CVA, Diverticulitis, Homicidal, Suicidal, threat to staff... and all critical care pts) @ -No Diagnosis/symptom? @ -Altered mental status, possible near syncope Acute, or Chronic, or Acute on Chronic? @ -Acute Uncomplicated (without systemic symptoms) or Complicated (systemic symptoms)? @ -Complicated Side effects of treatment? @ -none Exacerbation, Progression, or Severe Exacerbation] @ -no Poses a threat to life or bodily function? @ -Yes - Lab Data Result diagrams: 10/10/22 04:20 10/10/22 04:20 Lab Results 10/10/22 10/10/22 10/10/22 Range/Units 04:20 04:20 04:20 WBC 7.8 (3.8-10.6) k/uL RBC 3.85 (3.80-5.40) m/uL Hgb 9.1 L (11.4-16.0) gm/dL Hct 31.1 L (34.0-46.0) % MCV 80.8 (80.0-100.0) fL MCH 23.8 L (25.0-35.0) pg MCHC 29.4 L (31.0-37.0) g/dL RDW 16.4 H (11.5-15.5) % Plt Count 404 (150-450) k/uL MPV 7.5 Neutrophils % 66 % Lymphocytes % 23 % Monocytes % 6 % Eosinophils % 3 % Basophils % 0 % Neutrophils # 5.2 (1.3-7.7) k/uL Lymphocytes # 1.8 (1.0-4.8) k/uL Monocytes # 0.5 (0-1.0) k/uL Eosinophils # 0.2 (0-0.7) k/uL Basophils # 0.0 (0-0.2) k/uL Hypochromasia Marked Anisocytosis Slight PT 9.5 (9.0-12.0) sec INR 0.9 (<1.2) APTT 22.5 (22.0-30.0) sec Sodium 136 L (137-145) mmol/L Potassium 5.3 H (3.5-5.1) mmol/L Chloride 107 (98-107) mmol/L Carbon Dioxide 22 (22-30) mmol/L Anion Gap 7 mmol/L BUN 18 H (7-17) mg/dL Creatinine 0.61 (0.52-1.04) mg/dL Est GFR (CKD-EPI)AfAm >90 (>60 ml/min/1.73 sqM) Est GFR (CKD-EPI)NonAf >90 (>60 ml/min/1.73 sqM) Glucose 92 (74-99) mg/dL Calcium 8.3 L (8.4-10.2) mg/dL Total Bilirubin 0.3 (0.2-1.3) mg/dL AST 27 (14-36) U/L ALT 15 (4-34) U/L Alkaline Phosphatase 105 (38-126) U/L Total Protein 6.1 L (6.3-8.2) g/dL Albumin 3.4 L (3.5-5.0) g/dL - EKG Data -: EKG Interpreted by Me EKG Comments: 12-lead Electrocardiogram Interpretation Note EKG was reviewed and interpreted by myself. 12-lead ECG performed at 0414 is interpreted by me as revealing normal sinus rhythm at a rate of 81 beats per minute. Railroad is normal. HI interval is 207 ms, QRS duration is 94 ms, QTc is 423 ms.. There were no ST or T wave abnormalities to suggest myocardial ischemia or injury. R wave progression across the precordium was satisfactory. By my interpretation this EKG is non-diagnostic for acute ischemia. Disposition Clinical Impression: Pre-syncope, Fall, Altered mental status, Muscle strain Disposition: ADMITTED IP TO THIS HOSP Condition: Stable Referrals: Edd Lee MD [Primary Care Provider] - 1-2 days Time of Disposition: 07:58
--- NOTE | 2022-10-10 07:15 | CT ---
EXAMINATION TYPE: CT brain ramses kennedy con DATE OF EXAM: 10/10/2022 COMPARISON: 02/01/2022 HISTORY: Fall Unenhanced CT of the brain was performed. The ventricles, basal cisterns and sulci overlying the cerebral convexities demonstrate mild enlargem ent. There is no evidence for intracranial hemorrhage or sulcal effacement. There is decreased attenuatio n about the periventricular white matter and deep white matter of both cerebral hemispheres, compatib le with chronic small vessel ischemia. No mass effects are seen. If symptoms persist consider MRI. Osseous calvarium is intact. IMPRESSION: 1. Age related atrophic and chronic small vessel ischemic change without acute intracranial process seen at this time. CT Cervical Spine: Unenhanced CT of the cervical spine was performed with bone and soft tissue window settings submitted . Coronal and sagittal reconstruction is obtained. There is a 1.7 mm retrolisthesis of C3 on C4 and 2.3 mm anterolisthesis of C5 on C6 which appear to b e related to degenerative change of the cervical apophyseal joints. Acute ligamentous injury not excl uded. No evidence for acute cervical fracture . Scattered degenerative disc disease and spondylosis . Biapical scarring. IMPRESSION: 1. No evidence for acute fracture of the cervical spine. 2.There is a 1.7 mm retrolisthesis of C3 on C4 and 2.3 mm anterolisthesis of C5 on C6 which appear to be related to degenerative change of the cervical apophyseal joints. Acute ligamentous injury not ex cluded.
--- NOTE | 2022-10-10 07:36 | CT ---
EXAMINATION TYPE: CT lumbar spine wo con DATE OF EXAM: 10/10/2022 COMPARISON: None HISTORY: Fall, pain Unenhanced CT of the lumbar spine was performed. Bone and soft tissue window settings are submitted as well as coronal and sagittal reconstructions. L1-L2: Severe degenerative disc space narrowing with vacuum disc seen. No disc herniation or central stenosis. No foraminal encroachment. No evidence for fracture. L2-L3: Severe degenerative disc space narrowing with vacuum disc seen. No disc herniation or central stenosis. No foraminal encroachment. No evidence for fracture. L3-L4: Severe degenerative disc space narrowing with vacuum disc seen. No disc herniation or central stenosis. No foraminal encroachment. No evidence for fracture. L4-L5: Severe degenerative disc space narrowing. Grade 1 anterolisthesis L4 and L5 measuring 4 mm. Se roxy facet joint arthropathy. No evidence for central stenosis or disc herniation. Mild bilateral for aminal encroachment greater than left. L5-S1: Severe degenerative disc space narrowing with vacuum disc seen. No disc herniation or central stenosis. No foraminal encroachment. No evidence for fracture. No paraspinal masses are identified. Lumbar segments are free of fracture. IMPRESSION: 1. No evidence for lumbar spine fracture. 2. Severe multilevel degenerative disc disease. 3. Grade 1 anterolisthesis L4 and L5.
--- NOTE | 2022-10-10 07:38 | CT ---
EXAMINATION TYPE: CT pelvis wo con DATE OF EXAM: 10/10/2022 COMPARISON: None HISTORY: fall, pain Automated exposure control for dose reduction was used. Unenhanced CT of the pelvis was performed wit h bone and soft tissue window settings reviewed in the axial, coronal and sagittal planes. FINDINGS: I do not see evidence for displaced fracture or dislocation. Degenerative narrowing hip joint spaces bilaterally. Severe degenerative change lower lumbar spine. No soft tissue masses seen within the pel vis. IMPRESSION: NO EVIDENCE FOR PELVIC FRACTURE.
--- NOTE | 2022-10-10 07:40 | XR ---
EXAMINATION TYPE: XR chest 1V portable DATE OF EXAM: 10/10/2022 HISTORY: Shortness of breath. COMPARISON: 07/08/2022 TECHNIQUE: Single view of the chest is submitted. FINDINGS: Demonstrated are scattered senescent parenchymal change. There is no evidence for focal infiltrate. There is cardiomegaly. Unfolding of the thoracic aorta. Pulmonary venous congestion without overt katie lure. Degenerative changes are seen of the dorsal spine. IMPRESSION: 1. Pulmonary venous congestion without overt failure. 2. Prominence of the mediastinum is likely related to patient rotation and the AP portable technique.
--- NOTE | 2022-10-10 07:42 | XR ---
EXAMINATION TYPE: XR tibia fibula LT DATE OF EXAM: 10/10/2022 CLINICAL HISTORY: pain TECHNIQUE: AP and lateral images of the left tibia and fibula are obtained. COMPARISON: None. FINDINGS: There is sclerosis involving the lateral tibial plateau. While this could reflect severe de generative change impacted fractures is not excluded. Dedicated evaluation of the knee is advised. Th e tibia and fibula otherwise appear to be grossly intact. IMPRESSION: There is sclerosis involving the lateral tibial plateau. While this could reflect severe degenerative change impacted fractures is not excluded
[2022-10-10] MEDS ORDERED: NALOXONE 0.4 MG/ML 1 ML VIAL IV PRN (08:04)
[2022-10-10] MEDS: APIXABAN 5 MG TAB PO SCH ×2 (09:47→21:36)
[2022-10-10] MEDS ORDERED: IPRATROPIUM-ALBUTEROL 3 ML NEB INHALATION PRN (10:36)
[2022-10-10] MEDS: PANTOPRAZOLE 40 MG/10 ML VIAL IVP SCH (10:55)
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
--- NOTE | 2022-10-10 12:48 | CONS ---
CONSULTATION CHIEF COMPLAINT: Dizziness and near syncope. HISTORY OF PRESENT ILLNESS: This is a 67-year-old lady with history of coronary artery disease, COPD, hypertension, dyslipidemia, and DVT and prior pulmonary embolism who sees me regularly in my office, presented to hospital complaining of just not feeling well, feeling spaced out, dizziness and near syncope and I have been consulted for the same. The patient has known coronary artery disease and had angioplasty with stent placement of the diagonal branch. She does not have chest pain. Denies difficulty in breathing, leg edema, PND, or orthopnea. There is no recent cardiac testing on her. On this presentation, the creatinine is 0.6, hemoglobin is 9.1 potassium is 5.3. EKG shows sinus rhythm with evidence of prior anteroseptal myocardial infarction. The chest x-ray showed pulmonary venous congestion. At the time of my evaluation, she appears comfortable at rest and is free of significant symptoms. The patient did not have any syncope, seizure, bladder or bowel incontinence. PAST MEDICAL HISTORY: Significant for coronary artery disease, status post prior angioplasty, DVT and pulmonary embolism, hypothyroidism and dyslipidemia. CURRENT MEDICATIONS: Include, 1. DuoNeb. 2. [place]. 3. Requip. 4. Synthroid. 5. Neurontin. 6. Lasix. 7. Voltaren. 8. Flexeril. 9. Fioricet. 10.Lipitor. 11.Eliquis. 12.Elavil. ALLERGIES: To sulfa, Cefzil, Skelaxin. FAMILY HISTORY: Negative for premature coronary artery disease. SOCIAL HISTORY: Negative for current smoking, EtOH abuse or drug abuse. REVIEW OF SYSTEMS: 14 out of 14 review of systems has been performed. Pertinents are as documented. PHYSICAL EXAMINATION: GENERAL: Comfortable at rest. VITAL SIGNS: Stable. NECK: There is jugular venous distention. Carotid upstroke is normal. There is no bruit. CHEST: Reveals good air entry bilaterally. HEART: Reveals first and second heart sounds. No gallop. No murmur. ABDOMEN: Soft, nontender. EXTREMITIES: Exam of extremities did not reveal any edema. Peripheral pulses are felt. ASSESSMENT: 1. Near syncope, rule out cardiac causes. 2. Coronary artery disease, status post prior angioplasty. 3. History of pulmonary embolism. PLAN: I will obtain a 2D echo to evaluate the LV function. I will watch her on telemetry to rule out cardiac arrhythmias. I will decide on further course of action based on how her symptoms evolve. MMODL / IJN: [id number] /
--- NOTE | 2022-10-10 13:19 | US ---
EXAMINATION TYPE: US carotid duplex BILAT DATE OF EXAM: 10/10/2022 COMPARISON: NONE CLINICAL INDICATION: Female, 67 years old with history of Possible tIA; AMS, fall, double blurry visi ion, slurred speech TECHNIQUE: Carotid duplex ultrasound examination. Indirect Doppler criteria was utilized. FINDINGS: EXAM MEASUREMENTS: RIGHT: Peak Systolic Velocity (PSV) cm/sec ----- Right CCA: 83.0 ----- Right ICA: 99.7 ----- Right ECA: 100.0 ICA/CCA ratio: 1.2 RIGHT: End Diastole cm/sec ----- Right CCA: 22.5 ----- Right ICA: 30.5 ----- Right ECA: 11.8 LEFT: Peak Systolic Velocity (PSV) cm/sec ----- Left CCA: 59.5 ----- Left ICA: 106 ----- Left ECA: 65.9 ICA/CCA ratio: 1.8 LEFT: End Diastole cm/sec ----- Left CCA: 14.0 ----- Left ICA: 43.1 ----- Left ECA: 17.6 VERTEBRALS (direction of flow): Right Vertebral: Antegrade Left Vertebral: Antegrade Rhythm: Normal [employer] NOTES: Challenging patient o scan due to habitus and snoring, homogeneous plaque bilatera lly, no significant stenosis seen IMPRESSION: Less than 50% stenosis of the bilateral carotid bifurcations. Criteria for Assigning % of Stenosis / Diameter reduction (Estimation based on the indirect measurements of the internal carotid artery velocities (ICA PSV). 1. Normal (no stenosis)=ICA PSV < 125 cm/s: ratio < 2.0: ICA EDV<40 cm/s. 2. Less than 50% stenosis=ICA PSV < 125 cm/s: ratio < 2.0: ICA EDV<40 cm/s. 3. 50 to 69% stenosis=ICA PSV of 125 to 230 cm/s: ration 2.0 ? 4.0: ICA EDV 40-100 cm/s. 4. Greater than 70% stenosis to near occlusion= ICA PSV > 230 cm/s: ratio > 4.0: ICA EDV > 100 cm/s. 5. Near occlusion= ICA PSV velocities may be low or undetectable: variable ratio and ICA EDV. 6. Total occlusion=unable to detect flow.
[2022-10-10] MEDS: IPRATROPIUM-ALBUTEROL 3 ML NEB INHALATION SCH ×3 (13:34→19:26)
[2022-10-10] MEDS: SYMBICORT 80-4.5 MCG INHALER INHALATION SCH ×2 (13:34→19:26)
--- NOTE | 2022-10-10 14:58 | P.HPIM ---
History of Present Illness H&P Date: 10/10/22 This is a 59-year-old female with past medical history significant for coronary artery disease, CVA with right-sided weakness, PE/DVT-noncompliant taking her Eliquis due to cost and forgetfullness-state states last taken a couple days prior to admission, GI bleed, hypertension, hyperlipidemia, obstructive sleep apnea not on CPAP, hypothyroidism, morbid obesity with previous Alex-en-Y gastric bypass, tachycardia Subu syndrome, congestive heart failure, anxiety/depression, lifelong nonsmoker. She presented here to the emergency room yesterday with increased generalized weakness, status post falls, shaking of hands," blacking out"-denies completely passing out, difficulty speaking ,getting her words out clearly/difficulty finding the right hurts-states her tongue feels thick and difficult to move, positive urinary frequency. Denies chest pain, palpitations or shortness of breath. She reports left leg pain, from landing on it with fall. EKG reported sinus rhythm. Brain CT reported age-related atrophic and chronic small vessel ischemic change without acute intracranial process. CT neck reported no evidence for acute fracture of the cervical spine, 1.7 mm retrolisthesis of C3 on C4 and 2.3 mm anterolisthesis of C5 on C6 which appears to be related to degenerative changes on cervical epiphyseal joints. Acute ligamentous injury not excluded. CT of the lumbar spine reported no evidence for lumbar spine fracture. Severe multilevel degenerative disc disease. Grade 1 anterolisthesis L4 and L5.CT of the pelvis reported negative for pelvic fracture.Chest x-ray reported pulmonary venous congestion without overt failure. Prominence of the mediastinum is likely related to patient rotation in the AP portable technique. Left Tibia fibula X-ray reported sclerosis involving the la teral tibial plateau, could reflect severe degenerative change ,impacted fractures not excluded. Past Medical History Past Medical History: Asthma, Coronary Artery Disease (CAD), Chest Pain / Angina, Heart Failure, COPD, CVA/TIA, Deep Vein Thrombosis (DVT), Fibromyalgia, GERD/Reflux, GI Bleed, Hearing Disorder / Deafness, Hyperlipidemia, Hypertension, Memory Impairment, Myocardial Infarction (MA), Osteoarthritis (OA), Pneumonia, Pulmonary Embolus (PE), Respiratory Disorder, Seizure Disorder, Skin Disorder, Sleep Apnea/CPAP/BIPAP, Thyroid Disorder Additional Past Medical History / Comment(s): 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 Alex-en-Y gastric bypass for morbid obesity, has home o2 that was prescribed in 2019 but currently does not use Last Myocardial Infarction Date:: 2002 History of Any Multi-Drug Resistant Organisms: None Reported Past Surgical History: Bariatric Surgery, Hernia Repair, Hysterectomy, Joint Replacement, Orthopedic Surgery, Tubal Ligation Additional Past Surgical History / Comment(s): 10/19/19 PCI with stent, EGDs, colonoscopy/benign polyps, gastric bypass with revision, ventral and hiatal hernia repair, bladder suspension, R rotator curr repair/revision, L knee arthroscopy, rectocele, perinealplasty, 07/05/20 left shoulder replacement, 11/11/21 right shoulder replacement Past Anesthesia/Blood Transfusion Reactions: Motion Sickness Past Psychological History: Anxiety, Depression Smoking Status: Never smoker Past Alcohol Use History: Rare Past Drug Use History: None Reported - Past Family History Mother Family Medical History: Coronary Artery Disease (CAD), Eye Disorder Additional Family Medical History / Comment(s): Mother is 91 yrs old Father Family Medical History: Myocardial Infarction (MA) Additional Family Medical History / Comment(s): Father of a massive MA at the age of 53 yrs. Medications and Allergies Home Medications Medication Instructions Recorded Confirmed Type rOPINIRole HCL [Requip] 6 mg PO TID@0900,1500,2100 11/09/17 10/10/22 History Amitriptyline HCl [Elavil] 100 mg PO HS 01/07/22 10/10/22 History Apixaban [Eliquis] 5 mg PO BID 01/07/22 10/10/22 History Atorvastatin [Lipitor] 20 mg PO HS 01/07/22 10/10/22 History Cyclobenzaprine [Flexeril] 5 mg PO BID PRN 01/07/22 10/10/22 History Gabapentin [Neurontin] 800 mg PO TID 01/07/22 10/10/22 History Vortioxetine Hydrobromide 20 mg PO HS 01/07/22 10/10/22 History [Trintellix] Butalb/APAP/Caff 50-325-40Mg 1 tab PO BID PRN 07/08/22 10/10/22 History [Fioricet 50-325-40] Diclofenac Potassium [Cataflam] 50 mg PO TID@0900,1500,2100 07/08/22 10/10/22 History Diclofenac Sodium Gel [Voltaren 4 gm TOPICAL QID PRN 07/08/22 10/10/22 History Gel] Furosemide [Lasix] 40 mg PO DAILY PRN 07/08/22 10/10/22 History Ipratropium-Albuterol Nebulize 3 ml INHALATION RT-QID PRN 07/08/22 10/10/22 History [Duoneb 0.5 mg-3 mg/3 ml Soln] Clotrimazole Cream [Lotrimin Cream] 1 applic TOPICAL BID 10/10/22 10/10/22 History Ergocalciferol [Vitamin D2 (1250 1,250 mcg PO RALPH@2100 10/10/22 10/10/22 History Mcg = 01338 Iu)] HYDROcodone/APAP 10-325MG [[place] 1 tab PO Q6HR PRN 10/10/22 10/10/22 History 10-325] Levothyroxine Sodium [Synthroid] 88 mcg PO DAILY 10/10/22 10/10/22 History Magnesium Oxide [Magnesium] 500 mg PO BID 10/10/22 10/10/22 History Allergies Allergy/AdvReac Type Severity Reaction Status Date / Time cefprozil [From Cefzil] Allergy Unknown Verified 10/10/22 10:37 Sulfa (Sulfonamide Allergy Rash/Hives Verified 10/10/22 10:37 Antibiotics) valdecoxib [From Bextra] Allergy Unknown Verified 10/10/22 10:37 metaxalone [From Skelaxin] AdvReac Nausea & Verified 10/10/22 10:37 Vomiting Physical Exam Vitals: Vital Signs Temp Pulse Resp BP Pulse Ox 10/10/22 09:38 68 18 105/67 96 10/10/22 03:52 98.3 F 93 20 119/64 94 L Intake and Output 10/09/22 10/10/22 10/10/22 22:59 06:59 14:59 Other: Weight 117.934 kg PHYSICAL EXAM: VITAL SIGNS: [As above] GENERAL: Lying in bed, weak, fatigued, mildly garbled speech, reports difficulty finding her words HEENT: Normocephalic Conjunctivae normal. eyes normal. NECK: Supple, No JVD. No thyroid enlargement. No LNs CARDIOVASCULAR: S1, S2 regular.. No murmur RESPIRATION: Breath sounds diminished in the bases. No rhonchi or crackles. No bronchial breathing. ABDOMEN: Soft, nontender . No guarding. no masses palpable. No ascites, No hepatosplenomegaly.Bowel sounds heard. LEGS: No edema. no swelling PSYCHIATRY: Alert and oriented X3, mood and affect normal. NERVOUS SYSTEM: Cranial N 2-12 grossly normal. Moves all 4 limbs. Diffuse weakness No focal deficits. Strength and sensation grossly intact. Skin: no lesions, no rash Results CBC & Chem 7: 10/10/22 04:20 10/10/22 04:20 Labs: Abnormal Lab Results - Last 24 Hours (Table) 10/10/22 10/10/22 Range/Units 04:20 04:20 Hgb 9.1 L (11.4-16.0) gm/dL Hct 31.1 L (34.0-46.0) % MCH 23.8 L (25.0-35.0) pg MCHC 29.4 L (31.0-37.0) g/dL RDW 16.4 H (11.5-15.5) % Sodium 136 L (137-145) mmol/L Potassium 5.3 H (3.5-5.1) mmol/L BUN 18 H (7-17) mg/dL Calcium 8.3 L (8.4-10.2) mg/dL Total Protein 6.1 L (6.3-8.2) g/dL Albumin 3.4 L (3.5-5.0) g/dL Assessment and Plan Assessment: Increased generalized weakness, near syncope, status post falls, in a patient with history of peripheral neuropathy, not compliant with taking her Eliquis. Possible TIA, possible seizures, possible arrhythmias. Recurrent speech difficulty, reports trouble finding words, difficulty with speech as her tongue feels thick and difficult to move. History of multiple PEs, on Eliquis-which she has not been consistently taking, secondary to cost as well as forgetting. CAD, history of angioplasty Peripheral neuropathy Nerve stimulator in back, unable to have MRI Morbid obesity, BMI 47.6 Urinary frequency Raynolds syndrome Plan: Continue on current medication regime ,monitoring and symptomatic treatment. Telemetry monitoring. Neurology and cardiology consults in place with recommendations pending. PT/OT consulted. Case management to provide patient with [facility] Support program information. The impression and plan of care has been dictated as directed. : I performed a history and examination of this patient, discussed the same with the dictator. I agree with the dictator's note ,documented as a scribe. Any additional findings or plans will be noted.
[2022-10-10] MEDS: LEVOTHYROXINE 88 MCG TAB PO SCH (17:39)
[2022-10-10] MEDS: HYDROcodone/APAP 10-325MG 1 EACH TAB PO PRN (18:45)
[2022-10-10] MEDS: GABAPENTIN 400 MG CAP PO SCH ×2 (18:46→21:35)
[2022-10-10] MEDS ORDERED: ARIPiprazole 5 MG TAB PO SCH (21:00)
[2022-10-10] MEDS: rOPINIRole HCL 4 MG TABLET PO SCH ×2 (21:34→22:20)
[2022-10-10] MEDS: MAGNESIUM OXIDE 400 MG TAB PO SCH (21:36)
--- NOTE | 2022-10-10 23:45 | EEG ---
ELECTROENCEPHALOGRAM REPORT PREAMBLE: This is a 67-year-old female with recurrent episodes of blank stare, head jerk, rule out seizure. CURRENT MEDICATIONS: 1. Eliquis. 2. Abilify. 3. Protonix. 4. DuoNeb. EEG FINDINGS: This is a 21-channel digital EEG recorded with video component, utilizing 10/20 international system with referential and bipolar montages. Background consists of a well-developed, moderately well regulated, mixed frequencies of 9 to 10 hertz alpha, intermixed with some theta and some fast frequency beta activity seen in bihemispheric region. Background seems to be reactive to eye opening and closing. Photic driving response was not clearly seen. Some stage 2 sleep was seen at the end of the study with presence of sleep spindles and vertex waves. No focal or generalized epileptiform activity was seen. IMPRESSION: This is a mildly abnormal EEG due to background slowing, suggestive of mild encephalopathy. No epileptiform activity was seen. MMODL / IJN: [id number] /
[2022-10-11] MEDS: LEVOTHYROXINE 88 MCG TAB PO SCH (06:23)
[2022-10-11] MEDS: IPRATROPIUM-ALBUTEROL 3 ML NEB INHALATION SCH ×3 (07:59→15:26)
[2022-10-11] MEDS: SYMBICORT 80-4.5 MCG INHALER INHALATION SCH (07:59)
[2022-10-11 08:50] LABS: Basophils # (A) 0.04 X 10*3/uL (0.00-0.10); Basophils % (A) 0.6 %; Eosinophils # (A) 0.17 X 10*3/uL (0.04-0.35); Eosinophils % (A) 2.7 %; HCT 29.5 % (37.2-46.3); HGB 8.5 d/dL (12.0-15.0); Lymphocytes # (A) 1.63 X 10*3/uL (0.90-5.00); Lymphocytes % (A) 25.9 %; MCH 24.1 pg (27.0-32.0); MCHC 28.8 d/dL (32.0-37.0); MCV 83.6 FL (80.0-97.0); Mean Platelet Volume 9.3 FL (9.5-12.2); Monocytes % (A) 11.1 %; NRBC Per 100 WBC 0 X 10*3/uL (0.00-0.01); Neutrophils # (A) 3.74 X 10*3/uL (1.80-7.70); Neutrophils % (A) 59.4 %; Platelet Count 363 X 10*3/uL (140-440); RBC 3.53 X 10*6/uL (4.10-5.20); RDW 17.1 % (11.5-14.5)
[2022-10-11 08:59] LABS: Blood Urea Nitrogen 15.3 mg/dL (9.0-27.0); Calcium 8.3 mg/dL (8.7-10.3); Carbon Dioxide 24.9 mmol/L (21.6-31.8); Chloride 108 mmol/L (96-109); Glucose 86 mg/dL (70-110); Potassium 4.6 mmol/L (3.5-5.5); Sodium 141 mmol/L (135-145)
[2022-10-11] MEDS ORDERED: amLODIPine 2.5 MG TAB PO SCH (09:00)
[2022-10-11] MEDS ORDERED: ROPINIROLE HCL 3 MG PO SCH (09:00)
[2022-10-11] MEDS: GABAPENTIN 400 MG CAP PO SCH ×2 (09:32→16:15)
[2022-10-11] MEDS: HYDROcodone/APAP 10-325MG 1 EACH TAB PO PRN (09:32)
[2022-10-11] MEDS: MAGNESIUM OXIDE 400 MG TAB PO SCH (09:33)
[2022-10-11] MEDS: PANTOPRAZOLE 40 MG/10 ML VIAL IVP SCH (09:34)
[2022-10-11] MEDS: APIXABAN 5 MG TAB PO SCH (09:34)
[2022-10-11] MEDS: rOPINIRole HCL 4 MG TABLET PO SCH ×2 (09:45→16:15)
[2022-10-11] MEDS ORDERED: CYANOCOBALAMIN 1,000 MCG/ML 1 ML VIAL IM SCH (10:00)
--- NOTE | 2022-10-11 10:24 | PN ---
PROGRESS NOTE SUBJECTIVE: Marlin is a 67-year-old lady, who is admitted to hospital primarily with a confusional state. She has history of DVT and pulmonary embolism, CAD, COPD, and hypertension. This morning, she is feeling much better. Her confusion had resolved. I am waiting on the echocardiogram. OBJECTIVE: GENERAL: Comfortable at rest. VITAL SIGNS: Stable. CHEST: Reveals good air entry bilaterally. HEART: Reveals first and second heart sounds. Has systolic murmur at the left lower sternal border. ABDOMEN: Soft. EXTREMITIES: Did not reveal any edema. Peripheral pulses are palpable. LABORATORY DATA: Showed a potassium of 4.6, creatinine 0.6, hemoglobin is 8.5. The patient is currently on Eliquis 5 b.i.d., Lipitor, and Synthroid. ASSESSMENT: 1. Confusional state, resolved. 2. History of pulmonary embolism, on Eliquis. PLAN: The patient will continue current medications, stable for discharge. MMODL / IJN: [id number] /
[2022-10-11 14:43] VITALS: BP 142/82; RESP 18; TEMP 97.7
--- NOTE | 2022-10-11 15:23 | P.DS ---
Providers Date of admission: 10/10/22 08:04 Expected date of discharge: 10/11/22 Attending physician: Edd Lee MD Consults: 10/10/22 08:04 Consult Physician Routine Consulting Provider: [facility] Consult Reason/Comments: near syncope Do you want consulting provider notified?: Yes Consult Physician Routine Consulting Provider: Allan Dukes Consult Reason/Comments: ams, near syncope? Do you want consulting provider notified?: Yes Primary care physician: Edd Lee MD Hospital Course: Final Diagnoses: Increased generalized weakness, near syncope, status post falls, in a patient with history of peripheral neuropathy, not compliant with taking her Eliquis. Possible TIA. Recurrent speech difficulty, reports trouble finding words, difficulty with s peech as her tongue feels thick and difficult to move. History of multiple PEs, on Eliquis-which she has not been consistently taking, secondary to cost as well as forgetting. CAD, history of angioplasty Peripheral neuropathy Nerve stimulator in back, unable to have MRI Morbid obesity, BMI 47.6 Urinary frequency Raynolds syndrome Hospital course:This is a 59-year-old female with past medical history significant for coronary artery disease, CVA with right-sided weakness, PE/DVT- noncompliant taking her Eliquis due to cost and forgetfullness-state states last taken a couple days prior to admission, GI bleed, hypertension, hyperlipidemia, obstructive sleep apnea not on CPAP, hypothyroidism, morbid obesity with previous Alex-en-Y gastric bypass, tachycardia Subu syndrome, congestive heart failure, anxiety/depression, lifelong nonsmoker. She presented here to the emergency room yesterday with increased generalized weakness, status post falls, shaking of hands," blacking out"-denies completely passing out, difficulty speaking ,getting her words out clearly/difficulty finding the right hurts- states her tongue feels thick and difficult to move, positive urinary frequency. Denies chest pain, palpitations or shortness of breath. She reports left leg pain, from landing on it with fall. EKG reported sinus rhythm. Brain CT reported age-related atrophic and chronic small vessel ischemic change without acute intracranial process. CT neck reported no evidence for acute fracture of the cervical spine, 1.7 mm retrolisthesis of C3 on C4 and 2.3 mm anterolisthesis of C5 on C6 which appears to be related to degenerative changes on cervical epiphyseal joints. Acute ligamentous injury not excluded. CT of the lumbar spine reported no evidence for lumbar spine fracture. Severe multilevel degenerative disc disease. Grade 1 anterolisthesis L4 and L5.CT of the pelvis reported negative for pelvic fracture.Chest x-ray reported pulmonary venous congestion without overt failure. Prominence of the mediastinum is likely related to patient rotation in the AP portable technique. Left Tibia fibula X-ray reported sclerosis involving the lateral tibial plateau, could reflect severe degenerative change ,impacted fractures not excluded. Significant clinical improvement. EEG reported mildly abnormal EEG due to background slowing suggestive of mild encephalopathy with no epileptiform activity seen . Carotid Doppler reported less than 50% stenosis of bilateral carotid bifurcations. EKG reported normal sinus rhythm Evaluated by physical therapy recommending home care, rolling walker at DC. Patient will be discharged home later today in a stable condition with guarded prognosis pending final DC recommendations and clearance per neurology and cardiology, Echo results pending.Case management to provide patient with Eliquis Support program information. The impression and plan of care has been dictated as directed. : I performed a history and examination of this patient, discussed the same with the dictator. I agree with the dictator's note ,documented as a scribe. Any additional findings or plans will be noted. Patient Condition at Discharge: Stable Plan - Discharge Summary New Discharge Prescriptions: Continue rOPINIRole HCL [Requip] 6 mg PO TID@0900,1500,2100 Gabapentin [Neurontin] 800 mg PO TID Apixaban [Eliquis] 5 mg PO BID Cyclobenzaprine [Flexeril] 5 mg PO BID PRN PRN Reason: Pain Atorvastatin [Lipitor] 20 mg PO HS Amitriptyline HCl [Elavil] 100 mg PO HS Furosemide [Lasix] 40 mg PO DAILY PRN PRN Reason: Edema HYDROcodone/APAP 10-325MG [[place] 10-325] 1 tab PO Q6HR PRN PRN Reason: Pain Magnesium Oxide [Magnesium] 500 mg PO BID Vortioxetine Hydrobromide [Trintellix] 20 mg PO HS Butalb/APAP/Caff 50-325-40Mg [Fioricet 50-325-40] 1 tab PO BID PRN PRN Reason: Migraine Headache Diclofenac Potassium [Cataflam] 50 mg PO TID@0900,1500,2100 Diclofenac Sodium Gel [Voltaren Gel] 4 gm TOPICAL QID PRN PRN Reason: Pain Ipratropium-Albuterol Nebulize [Duoneb 0.5 mg-3 mg/3 ml Soln] 3 ml INHALATION RT-QID PRN PRN Reason: Shortness Of Breath Clotrimazole Cream [Lotrimin Cream] 1 applic TOPICAL BID Levothyroxine Sodium [Synthroid] 88 mcg PO DAILY Ergocalciferol [Vitamin D2 (1250 Mcg = 52261 Iu)] 1,250 mcg PO RALPH@2100 Discharge Medication List rOPINIRole HCL [Requip] 6 mg PO TID@0900,1500,2100 11/09/17 [History] Amitriptyline HCl [Elavil] 100 mg PO HS 01/07/22 [History] Apixaban [Eliquis] 5 mg PO BID 01/07/22 [History] Atorvastatin [Lipitor] 20 mg PO HS 01/07/22 [History] Cyclobenzaprine [Flexeril] 5 mg PO BID PRN 01/07/22 [History] Gabapentin [Neurontin] 800 mg PO TID 01/07/22 [History] Vortioxetine Hydrobromide [Trintellix] 20 mg PO HS 01/07/22 [History] Butalb/APAP/Caff 50-325-40Mg [Fioricet 50-325-40] 1 tab PO BID PRN 07/08/22 [History] Diclofenac Potassium [Cataflam] 50 mg PO TID@0900,1500,2100 07/08/22 [History] Diclofenac Sodium Gel [Voltaren Gel] 4 gm TOPICAL QID PRN 07/08/22 [History] Furosemide [Lasix] 40 mg PO DAILY PRN 07/08/22 [History] Ipratropium-Albuterol Nebulize [Duoneb 0.5 mg-3 mg/3 ml Soln] 3 ml INHALATION RT-QID PRN 07/08/22 [History] Clotrimazole Cream [Lotrimin Cream] 1 applic TOPICAL BID 10/10/22 [History] Ergocalciferol [Vitamin D2 (1250 Mcg = 46846 Iu)] 1,250 mcg PO RALPH@2100 10/10/22 [History] HYDROcodone/APAP 10-325MG [[place] 10-325] 1 tab PO Q6HR PRN 10/10/22 [History] Levothyroxine Sodium [Synthroid] 88 mcg PO DAILY 10/10/22 [History] Magnesium Oxide [Magnesium] 500 mg PO BID 10/10/22 [History] Follow up Appointment(s)/Referral(s): Edd Lee MD [Primary Care Provider] - 3 Days Discharge Disposition: HOME WITH HOME HEALTH SERVICES
[2022-10-11 15:41] VITALS: PULSE 76
[2022-10-11] MEDS ORDERED: PYRIDOXINE 50 MG TAB PO SCH (16:30)
--- NOTE | 2022-10-11 16:47 | P.PN ---
Subjective Progress Note Date: 10/11/22 Patient was seen for a follow-up. Denies any new symptoms. Objective - Vital Signs Vital signs: Vital Signs Temp 97.7 F 10/11/22 14:42 Pulse 76 10/11/22 15:41 Resp 18 10/11/22 14:42 BP 142/82 10/11/22 14:42 Pulse Ox 99 10/11/22 14:42 FiO2 Intake & Output 10/10/22 10/11/22 10/11/22 18:59 06:59 18:59 Intake Total 118 Balance 118 Weight 117.934 kg Intake: Oral 118 Other: # Voids 1 2 - Exam Unchanged. Mentation normal. - Labs CBC & Chem 7: 10/11/22 05:50 10/11/22 05:50 Labs: Abnormal Lab Results - Last 24 Hours (Table) 10/10/22 10/10/22 10/11/22 Range/Units 04:20 12:45 05:50 RBC 3.53 L (4.10-5.20) X 10*6/uL Hgb 8.5 L (12.0-15.0) d/dL Hct 29.5 L (37.2-46.3) % MCH 24.1 L (27.0-32.0) pg MCHC 28.8 L (32.0-37.0) d/dL RDW 17.1 H (11.5-14.5) % MPV 9.3 L (9.5-12.2) FL BUN/Creatinine Ratio (12.00-20.00) Ratio Calcium (8.7-10.3) mg/dL Vitamin B12 <150.0 L (200.0-944.0) pg/mL Methylmalonic Acid 0.70 H (<0.40) umol/L 10/11/22 Range/Units 05:50 RBC (4.10-5.20) X 10*6/uL Hgb (12.0-15.0) d/dL Hct (37.2-46.3) % MCH (27.0-32.0) pg MCHC (32.0-37.0) d/dL RDW (11.5-14.5) % MPV (9.5-12.2) FL BUN/Creatinine Ratio 25.50 H (12.00-20.00) Ratio Calcium 8.3 L (8.7-10.3) mg/dL Vitamin B12 (200.0-944.0) pg/mL Methylmalonic Acid (<0.40) umol/L Assessment and Plan Assessment: * Recurrent falls, most likely due to severe vitamin B12 deficiency. Patient has been falling a lot, about once a month since 2016. * Recurrent episodes of blank stare lasting for a few seconds, since last 2021. Rule out seizures. Routine EEG did not reveal any epileptiform activity. * Recurrent episodes of speech difficulty, what she describes as "giber/jaber" speech, of unclear cause. The symptoms also started since she had head injury about 6 months ago before 2021. * Nerve stimulator in the back. * Peripheral neuropathy * Severe B12 deficiency * Vitamin B6 deficiency * History of gastric bypass surgery 07/05/1993. * Morbid obesity * Raunauds * History of multiple PE, on long-term anticoagulation. Plan: * EEG revealed background slowing, suggestive of mild encephalopathy. No epileptiform activity was seen. Patient will undergo prolonged EEG 2.5 hours as an outpatient. Prescription was provided. * Carotid Doppler revealed less than 50% stenosis bilateral ICA. Antegrade flow in both vertebral arteries. * 2-D echo revealed mild left ventricular systolic dysfunction. Mildly increased septal wall thickness. Mildly increased posterior wall thickness. Left-ventricular EF 40-45%. Normal left atrial size. * Patient states that she takes Eliquis 5 mg twice a day but takes the medication only 4 days a week because of expenses issues. Patient needs to be compliant with her medication. Taking the medication suboptimally will not prevent her from thrombosis. Eliquis may help with TIAs as well. * Patient cannot have MRI of the brain because of presence of spinal cord stimulator. * B12 <150, methylmalonic acid elevated 0.70, patient has severe vitamin B12 deficiency. Patient was given B12 injection 1000 g. Recommend B12 injections 1000 g IM weekly for one month and then continue twice a month. * Folic acid and vitamin B6 level pending. Patient previously had B6 deficiency, therefore we will start B6 50 mg daily. * Hemoglobin A1c 5.8, TFTs normal. * PT OT, evaluate gait. Consider using a walker all the time to prevent falls. * Neurologically clear for discharge. May follow up with neurologist as outp atient.
--- NOTE | 2022-10-11 17:36 | CA ---
Transthoracic Echo Report Name: Marlin Veras Age: 67 Gender: F : 1955 Exam Date: 10/11/2022 11:01 Exam Location: [facility] Ht (in): 62 Wt (lb): 260 Ordering Physician: Jairo Charles MD ([id number]) Attending/Referring Phys: Araceli GRESHAM Finance Controller Henrry Alford Procedure CPT: Indications: Syncope Cardiac Hx: Technical Quality: Fair Contrast 1: Total Dose (mL): Contrast 2: Total Dose (mL): MEASUREMENTS (Male / Female) Normal Values 2D ECHO LV Diastolic Diameter PLAX 4.4 cm 4.2 - 5.9 / 3.9 - 5.3 cm LV Systolic Diameter PLAX 3.2 cm IVS Diastolic Thickness 1.2 cm 0.6 - 1.0 / 0.6 - 0.9 cm LVPW Diastolic Thickness 1.2 cm 0.6 - 1.0 / 0.6 - 0.9 cm LV Relative Wall Thickness 0.5 RV Internal Dim ED PLAX 2.8 cm LVOT Diameter 2.2 cm Aortic Root Diameter 2.7 cm LA Systolic Diameter LX 2.6 cm 3.0 - 4.0 / 2.7 - 3.8 cm LV Diastolic Volume MOD BP 66.6 cm??? 67 - 155 / 56 - 104 cm??? LV Systolic Volume MOD BP 28.3 cm??? 22 - 58 / 19 - 49 cm??? LV Ejection Fraction MOD BP 57.4 % >= 55 % LV Diastolic Volume MOD 4C 82.6 cm??? LV Systolic Volume MOD 4C 33.2 cm??? LV Ejection Fraction MOD 4C 59.8 % LV Diastolic Length 4C 7.8 cm LV Systolic Length 4C 6.5 cm LV Diastolic Volume MOD 2C 48.9 cm??? LV Systolic Volume MOD 2C 22.4 cm??? LV Ejection Fraction MOD 2C 54.2 % LV Diastolic Length 2C 7.1 cm LV Systolic Length 2C 6.0 cm LA Volume 48.6 cm??? 18 - 58 / 22 - 52 cm??? DOPPLER AV Peak Velocity 137.2 cm/s AV Peak Gradient 7.5 mmHg LVOT Peak Velocity 104.5 cm/s LVOT Peak Gradient 4.4 mmHg AV Area Cont Eq pk 3.0 cm??? MV Peak Velocity 96.3 cm/s MV Peak Gradient 3.7 mmHg MV Mean Velocity 51.6 cm/s MV Mean Gradient 1.3 mmHg MV Velocity Time Integral 33.4 cm MR Peak Velocity 471.6 cm/s MR Peak Gradient 89.0 mmHg Mitral E Point Velocity 91.2 cm/s Mitral A Point Velocity 81.5 cm/s Mitral E to A Ratio 1.1 MV Deceleration Time 165.8 ms TR Peak Velocity 247.2 cm/s TR Peak Gradient 24.4 mmHg Right Ventricular Systolic Press 29.5 mmHg PV Peak Velocity 106.3 cm/s PV Peak Gradient 4.5 mmHg FINDINGS Left Ventricle Mildly increased septal wall thickness. Mildly increased posterior wall thickness. Left ventricular ejection fraction is estimated at 40-45 %. Right Ventricle Normal right ventricular size. RVSP= 34mmhg. Right Atrium Normal right atrial size. Left Atrium Normal left atrial size. Mitral Valve Structurally normal mitral valve. Mild MR. Aortic Valve Trileaflet aortic valve. No aortic valve stenosis or regurgitation. Tricuspid Valve Structurally normal tricuspid valve. Mild TR. Pulmonic Valve Pulmonic valve not well visualized. No pulmonic regurgitation. Pericardium Normal pericardium. Aorta Normal size aortic root and proximal ascending aorta. CONCLUSIONS Mild LV systolic dysfunction Previewed by: Dr. Jairo Charles MD (Electronically Signed) Final Date: 11 October 2022 17:35
[2022-10-11] MEDS ORDERED: VORTIOXETINE HYDROBROMIDE 20 MG TABLET PO SCH (21:00)
[2022-10-11] MEDS ORDERED: ATORVASTATIN 20 MG TAB PO SCH (21:00)
[2022-10-11] MEDS ORDERED: AMITRIPTYLINE HCL 50 MG TAB PO SCH (21:00)
== END 2022-10-11 18:56 | disposition home health service (06) ==
LOC: EC 03:51 → 6NMEDSUR 08:04
PROVIDERS: ADMIT Family Medicine; ATTEND Family Medicine
DX: R53.1 Weakness (principal); R55 Syncope and collapse; E53.8 Deficiency of other specified B group vitamins; E87.5 Hyperkalemia; D64.9 Anemia, unspecified; J44.9 Chronic obstructive pulmonary disease, unspecified; I25.10 Atherosclerotic heart disease of native coronary artery without angina pectoris; I11.0 Hypertensive heart disease with heart failure; I50.9 Heart failure, unspecified; M79.7 Fibromyalgia; K21.9 Gastro-esophageal reflux disease without esophagitis; E78.5 Hyperlipidemia, unspecified; I25.2 Old myocardial infarction; G40.909 Epilepsy, unspecified, not intractable, without status epilepticus; I69.351 Hemiplegia and hemiparesis following cerebral infarction affecting right dominant side; G47.33 Obstructive sleep apnea (adult) (pediatric); K58.9 Irritable bowel syndrome, unspecified; M81.0 Age-related osteoporosis without current pathological fracture; R35.0 Frequency of micturition; E03.9 Hypothyroidism, unspecified; M54.81 Occipital neuralgia; I07.1 Rheumatic tricuspid insufficiency; F32.A Depression, unspecified; F41.9 Anxiety disorder, unspecified; T45.516A Underdosing of anticoagulants, initial encounter; M16.0 Bilateral primary osteoarthritis of hip; M47.816 Spondylosis without myelopathy or radiculopathy, lumbar region; G62.9 Polyneuropathy, unspecified; E66.01 Morbid (severe) obesity due to excess calories; M50.30 Other cervical disc degeneration, unspecified cervical region; I65.23 Occlusion and stenosis of bilateral carotid arteries; I73.00 Raynaud's syndrome without gangrene; M47.812 Spondylosis without myelopathy or radiculopathy, cervical region; I27.20 Pulmonary hypertension, unspecified; Z86.711 Personal history of pulmonary embolism; Z79.899 Other long term (current) drug therapy; Z79.01 Long term (current) use of anticoagulants; Z88.2 Allergy status to sulfonamides; Z91.141 Patient's other noncompliance with medication regimen due to financial hardship; Z88.8 Allergy status to other drugs, medicaments and biological substances; Z98.84 Bariatric surgery status; Z90.710 Acquired absence of both cervix and uterus; Z98.51 Tubal ligation status; Z95.5 Presence of coronary angioplasty implant and graft; Z96.611 Presence of right artificial shoulder joint; Z96.612 Presence of left artificial shoulder joint; Z82.49 Family history of ischemic heart disease and other diseases of the circulatory system; Z63.4 Disappearance and death of family member; Z68.42 Body mass index [BMI] 45.0-49.9, adult; Z79.890 Hormone replacement therapy; Z86.718 Personal history of other venous thrombosis and embolism; Z91.81 History of falling
CPT/HCPCS: 96376; 96372; 96374; 96375; 99285; 36415; 94640 ×3; 95816; 93005; 93306; 97162; 97166; 84207; 83921; 80053; 80048; 82607; 82746; 85025 ×2; 85610; 85730; 83036; 73590; 71045; 93880; 72192; 72125; 72131; 70450; G0378 ×2; J2270; J3420; C9113 ×2

== ENCOUNTER 2023-04-01 12:30 | Emergency (ER) | payer MEDICARE ==
[2023-04-01] MEDS ORDERED: dexAMETHasone 2 MG TAB PO STA (13:05)
[2023-04-01] MEDS ORDERED: HYDROmorphone 1 MG/ML 1 ML SYRINGE IM STA (13:05)
[2023-04-01] MEDS ORDERED: LIDOCAINE 4% PATCH TOPICAL STA (13:06)
--- NOTE | 2023-04-01 13:07 | ED ---
Back Pain HPI - General Chief Complaint: Neck Pain/Injury Stated Complaint: Back Pain Source: patient, RN notes reviewed, old records reviewed Limitations: no limitations - History of Present Illness Initial Comments: This is a 68-year-old female to the emergency department for evaluation, patient has history of severe back pain chronic back pain and presents DF for evaluation of back pain today. No new trauma no fevers no loss of bowel or bladder travel history or sick contacts MD Complaint: back pain, back injury -: days(s) Place: home Radiation: none Severity: severe Severity scale (1-10): 8 Quality: sharp Consistency: constant Improves With: none Worsens With: none Context: while lifting Associated Symptoms: denies other symptoms - Related Data Home Medications Medication Instructions Recorded Confirmed rOPINIRole HCL [Requip] 6 mg PO TID@0900,1500,2100 11/09/17 10/10/22 Amitriptyline HCl [Elavil] 100 mg PO HS 01/07/22 10/10/22 Apixaban [Eliquis] 5 mg PO BID 01/07/22 10/10/22 Atorvastatin [Lipitor] 20 mg PO HS 01/07/22 10/10/22 Cyclobenzaprine [Flexeril] 5 mg PO BID PRN 01/07/22 10/10/22 Gabapentin [Neurontin] 800 mg PO TID 01/07/22 10/10/22 Vortioxetine Hydrobromide 20 mg PO HS 01/07/22 10/10/22 [Trintellix] Butalb/APAP/Caff 50-325-40Mg 1 tab PO BID PRN 07/08/22 10/10/22 [Fioricet 50-325-40] Diclofenac Potassium [Cataflam] 50 mg PO TID@0900,1500,2100 07/08/22 10/10/22 Diclofenac Sodium Gel [Voltaren 1% 4 gm TOPICAL QID PRN 07/08/22 10/10/22 Gel] Furosemide [Lasix] 40 mg PO DAILY PRN 07/08/22 10/10/22 Ipratropium-Albuterol Nebulize 3 ml INHALATION RT-QID PRN 07/08/22 10/10/22 [Duoneb 0.5 mg-3 mg/3 ml Soln] Clotrimazole Cream [Lotrimin Cream] 1 applic TOPICAL BID 10/10/22 10/10/22 Ergocalciferol [Vitamin D2 (1250 1,250 mcg PO RALPH@2100 10/10/22 10/10/22 Mcg = 26994 Iu)] HYDROcodone/APAP 10-325MG [[place] 1 tab PO Q6HR PRN 10/10/22 10/10/22 10-325] Levothyroxine Sodium [Synthroid] 88 mcg PO DAILY 10/10/22 10/10/22 Magnesium Oxide [Magnesium] 500 mg PO BID 10/10/22 10/10/22 Previous Rx's Medication Instructions Recorded Famotidine [Pepcid] 20 mg PO DAILY #30 tablet 10/11/22 Allergies Allergy/AdvReac Type Severity Reaction Status Date / Time cefprozil [From Cefzil] Allergy Unknown Verified 04/07/23 16:49 cyclobenzaprine Allergy Rash/Hives Verified 04/07/23 16:49 [From Flexeril] Sulfa (Sulfonamide Allergy Rash/Hives Verified 04/07/23 16:49 Antibiotics) valdecoxib [From Bextra] Allergy Unknown Verified 04/07/23 16:49 metaxalone [From Skelaxin] AdvReac Nausea & Verified 04/07/23 16:49 Vomiting Review of Systems ROS Statement: Those systems with pertinent positive or pertinent negative responses have been documented in the HPI. ROS Other: All systems not noted in ROS Statement are negative. 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 Alex-en-Y gastric bypass for morbid obesity, has home o2 that was prescribed in 2020 but currently does not use Last Myocardial Infarction Date:: 2002 History of Any Multi-Drug Resistant Organisms: None Reported Past Surgical History: Bariatric Surgery, Hernia Repair, Hysterectomy, Joint Replacement, Orthopedic Surgery, Tubal Ligation Additional Past Surgical History / Comment(s): 10/19/19 PCI with stent, EGDs, colonoscopy/benign polyps, gastric bypass with revision, ventral and hiatal hernia repair, bladder suspension, R rotator curr repair/revision, L knee arthroscopy, rectocele, perinealplasty, 07/05/20 left shoulder replacement, 11/11/21 right shoulder replacement Past Anesthesia/Blood Transfusion Reactions: Motion Sickness Past Psychological History: Anxiety, Depression Smoking Status: Never smoker Past Alcohol Use History: Rare Past Drug Use History: None Reported - Past Family History Mother Family Medical History: Coronary Artery Disease (CAD), Eye Disorder Additional Family Medical History / Comment(s): Mother is 91 yrs old Father Family Medical History: Myocardial Infarction (ND) Additional Family Medical History / Comment(s): Father of a massive [place] at the age of 53 yrs. General Exam Limitations: no limitations General appearance: alert, in no apparent distress Head exam: Present: atraumatic, normocephalic, normal inspection Eye exam: Present: normal appearance, PERRL, EOMI. Absent: scleral icterus, conjunctival injection, periorbital swelling ENT exam: Present: normal exam, mucous membranes moist Neck exam: Present: normal inspection. Absent: tenderness, meningismus, lymphadenopathy Respiratory exam: Present: normal lung sounds bilaterally. Absent: respiratory distress, wheezes, rales, rhonchi, stridor Cardiovascular Exam: Present: regular rate, normal rhythm, normal heart sounds. Absent: systolic murmur, diastolic murmur, rubs, gallop, clicks GI/Abdominal exam: Present: soft, normal bowel sounds. Absent: distended, tenderness, guarding, rebound, rigid Extremities exam: Present: normal inspection, full ROM, normal capillary refill. Absent: tenderness, pedal edema, joint swelling, calf tenderness Back exam: Present: normal inspection Neurological exam: Present: alert, oriented X3, CN II-XII intact Psychiatric exam: Present: normal affect, normal mood Skin exam: Present: warm, dry, intact, normal color. Absent: rash Course Vital Signs 04/01/23 04/01/23 12:41 16:48 Temperature 98.6 F 98.8 F Pulse Rate 89 68 Respiratory 20 18 Rate Blood Pressure 138/82 142/78 O2 Sat by Pulse 95 98 Oximetry - Reevaluation(s) Reevaluation #1: Medical records reviewed Reevaluation #2: Patient symptoms improved Reevaluation #3: Patient informed results and questions answered Reevaluation #4: 04/01/23 16:13 Was pt. sent in by a medical professional or institution (, CHARAN, SETTER COLD ROLLING MACHINE, urgent care, hospital, or usp...) When possible be specific @ -no Did you speak to anyone other than the patient for history (EMS, parent, family, police, friend...)? What history was obtained from this source @ -no Did you review nursing and triage notes (agree or disagree)? Why? @ -agree Are old charts reviewed (outside hosp., previous admission, EMS record, old EKG, old radiological studies, urgent care reports/EKG's, usp records)? Report findings @ -yes Differential Diagnosis (chest pain, altered mental status, abdominal pain women, abdominal pain men, vaginal bleeding, weakness, fever, dyspnea, syncope, headache, dizziness, GI bleed, back pain, seizure, CVA, palpatations, mental health, musculoskeletal)? @ -prior EKG interpreted by me (3pts min.). @ -yes X-rays interpreted by me (1pt min.). @ -yes CT interpreted by me (1pt min.). @ -no U/S interpreted by me (1pt. min.). @ -no What testing was considered but not performed or refused? (CT, X-rays, U/S, labs)? Why? @ -none What meds were considered but not given or refused? Why? @ -none Did you discuss the management of the patient with other professionals (professionals i.e. CHARAN Adams, [employer] C[employer] RO[employer]ING MACHINE, lab, RT, psych nurse, social contact worker, teaching supervisor, teacher, wildlife officer, high risk case manager)? Give summary @ -no Was smoking cessation discussed for >3mins.? @ -no Was critical care preformed (if so, how long)? @ -no Were there social determinants of health that impacted care today? How? (Homelessness, low income, unemployed, alcoholism, drug addiction, transportation, low edu. Level, literacy, decrease access to med. care, nursing home, rehab)? @ -none Was there de-escalation of care discussed even if they declined (Discuss DNR or withdrawal of care, Hospice)? DNR status @ -no What co-morbidities impacted this encounter? (DM, HTN, Smoking, COPD, CAD, Cancer, CVA, ARF, Chemo, Hep., AIDS, mental health diagnosis, sleep apnea, morbid obesity)? @ -none Was patient admitted / discharged? Hospital course, mention meds given and route, prescriptions, significant lab abnormalities, going to OR and other pertinent info. @ - Undiagnosed new problem with uncertain prognosis? @ -no Drug Therapy requiring intensive monitoring for toxicity (Heparin, Nitro, Insulin, Cardizem)? @ -no Were any procedures done? @ -no Diagnosis/symptom? @ - Acute, or Chronic, or Acute on Chronic? @ -Acute Uncomplicated (without systemic symptoms) or Complicated (systemic symptoms)? @ -Complicated Side effects of treatment? @ -no Exacerbation, Progression, or Severe Exacerbation? @ -exacerbation Poses a threat to life or bodily function? How? (Chest pain, USA, [place], pneumonia, PE, COPD, DKA, ARF, appy, cholecystitis, CVA, Diverticulitis, Homicidal, Suicidal, threat to staff... and all critical care pts) @ -yes Reevaluation #5: 04/01/23 16:13 Differential Back Pain: Strain, zoster, cauda equina syndrome, epidural abscess, vertebral osteomyelitis, discitis, fracture, subluxation, disc herniation, DJD, spinal stenosis, dissection, AAA, pancreatitis, peptic ulcer disease, pyelonephritis, kidney stone, this is not meant to be an all-inclusive list. Medical Decision Making - Medical Decision Making 68 female to the emergency department for evaluation of significant and severe back pain. Back pain is well-controlled here in the ER without neurological complaint. Patient can be discharged home Disposition Clinical Impression: Chronic back pain, Lumbar disc disease with radiculopathy, Lumbar spondylosis Disposition: HOME SELF-CARE Condition: Fair Instructions (If sedation given, give patient instructions): Acute Low Back Pain (ED), Lumbar Radiculopathy (ED), Chronic Back Pain (DC) Is patient prescribed a controlled substance at d/c from ED?: No Referrals: Edd Lee MD [Primary Care Provider] - 1-2 days Time of Disposition: 13:00
[2023-04-01] MEDS ORDERED: ETODOLAC 400 MG TAB PO STA (13:18)
[2023-04-01 17:04] VITALS: BP 142/78; PULSE 68; RESP 18; TEMP 98.8
== END 2023-04-01 15:00 | disposition home or self-care (01) ==
LOC: EC 12:30
DX: G89.29 Other chronic pain (principal); M51.16 Intervertebral disc disorders with radiculopathy, lumbar region; M47.816 Spondylosis without myelopathy or radiculopathy, lumbar region; E78.5 Hyperlipidemia, unspecified; E66.01 Morbid (severe) obesity due to excess calories; I25.10 Atherosclerotic heart disease of native coronary artery without angina pectoris; I50.9 Heart failure, unspecified; I11.0 Hypertensive heart disease with heart failure; I25.2 Old myocardial infarction; E07.9 Disorder of thyroid, unspecified; G47.30 Sleep apnea, unspecified; J44.89 Other specified chronic obstructive pulmonary disease; Z86.59 Personal history of other mental and behavioral disorders; Z79.899 Other long term (current) drug therapy; Z79.890 Hormone replacement therapy; Z86.73 Personal history of transient ischemic attack (TIA), and cerebral infarction without residual deficits; Z95.5 Presence of coronary angioplasty implant and graft; Z79.01 Long term (current) use of anticoagulants; Z88.2 Allergy status to sulfonamides; Z88.8 Allergy status to other drugs, medicaments and biological substances
CPT/HCPCS: 99284; 96372; J1170; J8540

== ENCOUNTER 2023-04-07 15:45 | Emergency (ER) | payer BC, MEDICARE ==
--- NOTE | 2023-04-07 16:32 | ED ---
General Adult HPI - General Source: patient, RN notes reviewed <Miri Leal - Last Filed: 04/07/23 16:31> <Cassi Bhatt - Last Filed: 04/08/23 04:30> - General Stated complaint: Back Pain Time Seen by Provider: 04/07/23 16:32 - History of Present Illness Initial comments: 68-year-old female presenting with chief complaint of lower back pain. Patient has history of chronic back pain, believes that she aggravated the pain helping her daughter move. No obvious injury or trauma that she can remember. No loss of bowel or bladder control or saddle paresthesia. She does have radiation of pain down the bilateral legs. No fevers. She is able to ambulate. (Cassi Bhatt) - Related Data Home Medications Medication Instructions Recorded Confirmed rOPINIRole HCL [Requip] 6 mg PO TID@0900,1500,2100 11/09/17 10/10/22 Amitriptyline HCl [Elavil] 100 mg PO HS 01/07/22 10/10/22 Apixaban [Eliquis] 5 mg PO BID 01/07/22 10/10/22 Atorvastatin [Lipitor] 20 mg PO HS 01/07/22 10/10/22 Cyclobenzaprine [Flexeril] 5 mg PO BID PRN 01/07/22 10/10/22 Gabapentin [Neurontin] 800 mg PO TID 01/07/22 10/10/22 Vortioxetine Hydrobromide 20 mg PO HS 01/07/22 10/10/22 [Trintellix] Butalb/APAP/Caff 50-325-40Mg 1 tab PO BID PRN 07/08/22 10/10/22 [Fioricet 50-325-40] Diclofenac Potassium [Cataflam] 50 mg PO TID@0900,1500,2100 07/08/22 10/10/22 Diclofenac Sodium Gel [Voltaren 1% 4 gm TOPICAL QID PRN 07/08/22 10/10/22 Gel] Furosemide [Lasix] 40 mg PO DAILY PRN 07/08/22 10/10/22 Ipratropium-Albuterol Nebulize 3 ml INHALATION RT-QID PRN 07/08/22 10/10/22 [Duoneb 0.5 mg-3 mg/3 ml Soln] Clotrimazole Cream [Lotrimin Cream] 1 applic TOPICAL BID 10/10/22 10/10/22 Ergocalciferol [Vitamin D2 (1250 1,250 mcg PO RALPH@2100 10/10/22 10/10/22 Mcg = 21911 Iu)] HYDROcodone/APAP 10-325MG [[place] 1 tab PO Q6HR PRN 10/10/22 10/10/22 10-325] Levothyroxine Sodium [Synthroid] 88 mcg PO DAILY 10/10/22 10/10/22 Magnesium Oxide [Magnesium] 500 mg PO BID 10/10/22 10/10/22 Previous Rx's Medication Instructions Recorded Famotidine [Pepcid] 20 mg PO DAILY #30 tablet 10/11/22 Allergies Allergy/AdvReac Type Severity Reaction Status Date / Time cefprozil [From Cefzil] Allergy Unknown Verified 04/07/23 16:49 cyclobenzaprine Allergy Rash/Hives Verified 04/07/23 16:49 [From Flexeril] Sulfa (Sulfonamide Allergy Rash/Hives Verified 04/07/23 16:49 Antibiotics) valdecoxib [From Bextra] Allergy Unknown Verified 04/07/23 16:49 metaxalone [From Skelaxin] AdvReac Nausea & Verified 04/07/23 16:49 Vomiting Review of Systems ROS Other: All systems not noted in ROS Statement are negative. <Miri Leal - Last Filed: 04/07/23 16:31> ROS Other: All systems not noted in ROS Statement are negative. <Cassi Bhatt - Last Filed: 04/08/23 04:30> ROS Statement: Those systems with pertinent positive or pertinent negative responses have been documented in the HPI. 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 Alex-en-Y gastric bypass for morbid obesity, has home o2 that was prescribed in 2019 but currently does not use Last Myocardial Infarction Date:: 2002 History of Any Multi-Drug Resistant Organisms: None Reported Past Surgical History: Bariatric Surgery, Hernia Repair, Hysterectomy, Joint Replacement, Orthopedic Surgery, Tubal Ligation Additional Past Surgical History / Comment(s): 10/19/19 PCI with stent, EGDs, colonoscopy/benign polyps, gastric bypass with revision, ventral and hiatal hernia repair, bladder suspension, R rotator curr repair/revision, L knee arthroscopy, rectocele, perinealplasty, 07/05/20 left shoulder replacement, 11/11/21 right shoulder replacement Past Anesthesia/Blood Transfusion Reactions: Motion Sickness Past Psychological History: Anxiety, Depression Smoking Status: Never smoker Past Alcohol Use History: Rare Past Drug Use History: None Reported - Past Family History Mother Family Medical History: Coronary Artery Disease (CAD), Eye Disorder Additional Family Medical History / Comment(s): Mother is 91 yrs old Father Family Medical History: Myocardial Infarction ([place]) Additional Family Medical History / Comment(s): Father of a massive [place] at the age of 53 yrs. <Miri Leal - Last Filed: 04/07/23 16:31> General Exam Limitations: no limitations General appearance: alert, in distress (Patient is kicking her legs complaining of pain while laying down) Head exam: Present: atraumatic, normocephalic Eye exam: Present: normal appearance Neck exam: Present: normal inspection Respiratory exam: Absent: respiratory distress Cardiovascular Exam: Present: tachycardia Back exam: Present: normal inspection, muscle spasm, paraspinal tenderness Neurological exam: Present: alert, oriented X3 Psychiatric exam: Present: normal affect, normal mood Skin exam: Present: warm, dry <Cassi Bhatt - Last Filed: 04/08/23 04:30> Course Vital Signs 04/07/23 04/08/23 16:50 03:39 Temperature 97.8 F 98.6 F Pulse Rate 113 H 86 Respiratory 24 18 Rate Blood Pressure 121/61 124/67 O2 Sat by Pulse 98 93 L Oximetry Medical Decision Making <Cassi Bhatt - Last Filed: 04/08/23 04:30> - Medical Decision Making Was pt. sent in by a medical professional or institution (, PA, ORDER PLANNER, urgent care, hospital, or retirement...) When possible be specific @ -No Did you speak to anyone other than the patient for history (EMS, parent, family, police, friend...)? What history was obtained from this source @ -No Did you review nursing and triage notes (agree or disagree)? Why? @ -I reviewed and agree with nursing and triage notes Were old charts reviewed (outside hosp., previous admission, EMS record, old E KG, old radiological studies, urgent care reports/EKG's, retirement records)? Report findings @ -No old charts were reviewed Differential Diagnosis (chest pain, altered mental status, abdominal pain women, abdominal pain men, vaginal bleeding, weakness, fever, dyspnea, syncope, headache, dizziness, GI bleed, back pain, seizure, CVA, palpatations, mental hea lth, musculoskeletal)? @ - MDM Differential Back Pain: Strain, zoster, cauda equina syndrome, epidural abscess, vertebral osteomyelitis, discitis, fracture, subluxation, disc herniation, DJD, spinal stenosis, dissection, AAA, pancreatitis, peptic ulcer disease, pyelonephritis, kidney stone this is not meant to be an all-inclusive list. EKG interpreted by me (3pts min.). @ -As above X-rays interpreted by me (1pt min.). @ -None done CT interpreted by me (1pt min.). @ -CT shows no acute fracture or subluxation. No significant spinal canal stenosis U/S interpreted by me (1pt. min.). @ -None done What testing was considered but not performed or refused? (CT, X-rays, U/S, labs)? Why? @ -None What meds were considered but not given or refused? Why? @ -None Did you discuss the management of the patient with other professionals (professionals i.e. , PA, ORDER PLANNER, lab, RT, psych nurse, social worker aide, ocean forwarder, teacher, data officer, director of casework department)? Give summary @ -No Was smoking cessation discussed for >3mins.? @ -No Was critical care preformed (if so, how long)? @ -No Were there social determinants of health that impacted care today? How? (Homelessness, low income, unemployed, alcoholism, drug addiction, tra nsportation, low edu. Level, literacy, decrease access to med. care, correction, rehab)? @ -No Was there de-escalation of care discussed even if they declined (Discuss DNR or withdrawal of care, Hospice)? DNR status @ -No What co-morbidities impacted this encounter? (DM, HTN, Smoking, COPD, CAD, Cancer, CVA, ARF, Chemo, Hep., AIDS, mental health diagnosis, sleep apnea, morbid obesity)? @ -None Was patient admitted / discharged? Hospital course, mention meds given and route, prescriptions, significant lab abnormalities, going to OR and other pertinent info. @ -68-year-old female presenting with chief complaint of lower back pain. History of chronic lower back pain. Patient has been seen here before for this issue. No red flag symptoms. Patient is given pain medication. She is seen walking around the room. Patient continues to complain of pain after initial pain medication, she is given a second dose, she is requesting a CT of the lumbar spine. CT shows no fracture or subluxation and no significant spinal canal stenosis. Patient is discharged and instructed to follow-up with orthopedics. Follow-up with PCP. Report back to ER with any new or worsening symptoms. Discussed return parameters and answered all questions. Patient con veyed verbal understanding and agreed to the plan. I discussed this case in detail with my attending Dr. Anderson Undiagnosed new problem with uncertain prognosis? @ -No Drug Therapy requiring intensive monitoring for toxicity (Heparin, Nitro, Insulin, Cardizem)? @ -No Were any procedures done? @ -No Diagnosis/symptom? @ -Acute on chronic lower back pain Acute, or Chronic, or Acute on Chronic? @ -Acute on chronic Uncomplicated (without systemic symptoms) or Complicated (systemic symptoms)? @ -Uncomplicated Side effects of treatment? @ -No Exacerbation, Progression, or Severe Exacerbation? @ -No Poses a threat to life or bodily function? How? (Chest pain, [place], [place], pneumonia, PE, COPD, DKA, ARF, appy, cholecystitis, CVA, Diverticulitis, Homicidal, Suicidal, threat to staff... and all critical care pts) @ -No (Cassi Bhatt) Disposition <Miri Leal - Last Filed: 04/07/23 16:31> Is patient prescribed a controlled substance at d/c from ED?: No Time of Disposition: 02:59 <Cassi Bhatt - Last Filed: 04/08/23 04:30> Clinical Impression: Acute exacerbation of chronic low back pain Disposition: HOME SELF-CARE Condition: Good Instructions (If sedation given, give patient instructions): Acute Low Back Pain (ED) Additional Instructions: Follow up with PCP. Report back to ER with any new or worsening symptoms. Referrals: Edd Lee MD [Primary Care Provider] - 1-2 days Dano Escobar DO [Doctor of Osteopathic Medicine] - 1-2 days
[2023-04-07] MEDS ORDERED: HYDROmorphone 1 MG/ML 1 ML SYRINGE IM STA (22:51)
[2023-04-07] MEDS ORDERED: LIDOCAINE 4% PATCH TOPICAL ONE (22:51)
[2023-04-08] MEDS ORDERED: HYDROmorphone 1 MG/ML 1 ML SYRINGE IM STA (00:28)
--- NOTE | 2023-04-08 02:41 | CT ---
EXAM: CT Lumbar Spine Without Intravenous Contrast CLINICAL HISTORY: ITS.REASON CT Reason: back pain TECHNIQUE: Axial computed tomography images of the lumbar spine without intravenous contrast. CTDI is 50.7 mGy and DLP is 1490 mGy-cm. This CT exam was performed using one or more of the following dose reduction techniques: automated exposure control, adjustment of the mA and/or kV according to patient size, and/or use of iterative reconstruction technique. COMPARISON: 10/10/2022 FINDINGS: Vertebrae: No acute fracture. No subluxation. Discs/spinal canal/neural foramina: No significant spinal canal stenosis. Mild multilevel bilateral foraminal stenosis throughout the lumbar spine except at L4-5 which is severe on the right and L5-S1 which is moderate on the right. Soft tissues: Unremarkable. IMPRESSION: No acute fracture.
[2023-04-08 03:41] VITALS: BP 124/67; PULSE 86; RESP 18; TEMP 98.6
== END 2023-04-08 03:40 | disposition home or self-care (01) ==
LOC: EC 15:45
DX: G89.29 Other chronic pain (principal); M54.50 Low back pain, unspecified; I11.0 Hypertensive heart disease with heart failure; I50.9 Heart failure, unspecified; I25.10 Atherosclerotic heart disease of native coronary artery without angina pectoris; I25.2 Old myocardial infarction; J44.89 Other specified chronic obstructive pulmonary disease; E78.5 Hyperlipidemia, unspecified; E03.9 Hypothyroidism, unspecified; G40.909 Epilepsy, unspecified, not intractable, without status epilepticus; F32.A Depression, unspecified; F41.9 Anxiety disorder, unspecified; Z79.01 Long term (current) use of anticoagulants; Z79.890 Hormone replacement therapy; Z79.899 Other long term (current) drug therapy; Z88.2 Allergy status to sulfonamides; Z88.1 Allergy status to other antibiotic agents; Z88.8 Allergy status to other drugs, medicaments and biological substances; Z86.711 Personal history of pulmonary embolism; Z86.718 Personal history of other venous thrombosis and embolism
CPT/HCPCS: 72131; 99284; 96372 ×2; J1170 ×2

== ENCOUNTER 2023-04-21 10:18 | Emergency (ER) | payer MEDICARE ==
--- NOTE | 2023-04-21 10:20 | ED ---
General Adult HPI - General Source: patient, RN notes reviewed <Sola Inman - Last Filed: 04/21/23 10:21> - General Source: RN notes reviewed, old records reviewed Mode of arrival: ambulatory Limitations: no limitations - History of Present Illness -: days(s) Location: abdomen Severity scale (1-10): 9 Quality: burning Consistency: constant Improves with: none Worsens with: cold therapy Associated Symptoms: denies other symptoms Treatments Prior to Arrival: none <Christos Anderson - Last Filed: 04/22/23 16:53> - General Chief complaint: Recheck/Abnormal Lab/Rx Stated complaint: Abd Flap Infection, pcp sent Time Seen by Provider: 04/21/23 10:19 - History of Present Illness Initial comments: This is a 68-year-old female who presents to the emergency department for an infection in her abdominal pannus. States that the skin is "degrading" and her PCP office sent her in. Not currently taking antibiotics. (Sola Inman) This is a 68-year-old female to the emergency department for evaluation of abdominal pain with abdominal rash. Patient states his symptoms are getting progressively worse with increased itching tenderness and swelling. She also has back pain history of chronic back pain. (Christos Anderson) - Related Data Home Medications Medication Instructions Recorded Confirmed rOPINIRole HCL [Requip] 6 mg PO TID@0900,1500,2100 11/09/17 10/10/22 Amitriptyline HCl [Elavil] 100 mg PO HS 01/07/22 10/10/22 Apixaban [Eliquis] 5 mg PO BID 01/07/22 10/10/22 Atorvastatin [Lipitor] 20 mg PO HS 01/07/22 10/10/22 Cyclobenzaprine [Flexeril] 5 mg PO BID PRN 01/07/22 10/10/22 Gabapentin [Neurontin] 800 mg PO TID 01/07/22 10/10/22 Vortioxetine Hydrobromide 20 mg PO HS 01/07/22 10/10/22 [Trintellix] Butalb/APAP/Caff 50-325-40Mg 1 tab PO BID PRN 07/08/22 10/10/22 [Fioricet 50-325-40] Diclofenac Potassium [Cataflam] 50 mg PO TID@0900,1500,2100 07/08/22 10/10/22 Diclofenac Sodium Gel [Voltaren 1% 4 gm TOPICAL QID PRN 07/08/22 10/10/22 Gel] Furosemide [Lasix] 40 mg PO DAILY PRN 07/08/22 10/10/22 Ipratropium-Albuterol Nebulize 3 ml INHALATION RT-QID PRN 07/08/22 10/10/22 [Duoneb 0.5 mg-3 mg/3 ml Soln] Clotrimazole Cream [Lotrimin Cream] 1 applic TOPICAL BID 10/10/22 10/10/22 Ergocalciferol [Vitamin D2 (1250 1,250 mcg PO RALPH@2100 10/10/22 10/10/22 Mcg = 21983 Iu)] HYDROcodone/APAP 10-325MG [[place] 1 tab PO Q6HR PRN 10/10/22 10/10/22 10-325] Levothyroxine Sodium [Synthroid] 88 mcg PO DAILY 10/10/22 10/10/22 Magnesium Oxide [Magnesium] 500 mg PO BID 10/10/22 10/10/22 Previous Rx's Medication Instructions Recorded Famotidine [Pepcid] 20 mg PO DAILY #30 tablet 10/11/22 Allergies Allergy/AdvReac Type Severity Reaction Status Date / Time cefprozil [From Cefzil] Allergy Unknown Verified 04/21/23 10:24 cyclobenzaprine Allergy Rash/Hives Verified 04/21/23 10:24 [From Flexeril] Sulfa (Sulfonamide Allergy Rash/Hives Verified 04/21/23 10:24 Antibiotics) valdecoxib [From Bextra] Allergy Unknown Verified 04/21/23 10:24 metaxalone [From Skelaxin] AdvReac Nausea & Verified 04/21/23 10:24 Vomiting Review of Systems ROS Other: All systems not noted in ROS Statement are negative. <Sola Inman - Last Filed: 04/21/23 10:21> ROS Other: All systems not noted in ROS Statement are negative. <Christos Anderson - Last Filed: 04/22/23 16:53> ROS Statement: Those systems with pertinent positive or pertinent negative responses have been documented in the HPI. 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 Alex-en-Y gastric bypass for morbid obesity, has home o2 that was prescribed in 2019 but currently does not use Last Myocardial Infarction Date:: 2002 History of Any Multi-Drug Resistant Organisms: None Reported Past Surgical History: Bariatric Surgery, Hernia Repair, Hysterectomy, Joint Replacement, Orthopedic Surgery, Tubal Ligation Additional Past Surgical History / Comment(s): 10/19/19 PCI with stent, EGDs, colonoscopy/benign polyps, gastric bypass with revision, ventral and hiatal hernia repair, bladder suspension, R rotator curr repair/revision, L knee arthroscopy, rectocele, perinealplasty, 07/05/20 left shoulder replacement, 11/11/21 right shoulder replacement Past Anesthesia/Blood Transfusion Reactions: Motion Sickness Past Psychological History: Anxiety, Depression Smoking Status: Never smoker Past Alcohol Use History: Rare Past Drug Use History: None Reported - Past Family History Mother Family Medical History: Coronary Artery Disease (CAD), Eye Disorder Additional Family Medical History / Comment(s): Mother is 91 yrs old Father Family Medical History: Myocardial Infarction ([place]) Additional Family Medical History / Comment(s): Father of a massive [place] at the age of 53 yrs. <Sola Inman - Last Filed: 04/21/23 10:21> General Exam <Sola Inman - Last Filed: 04/21/23 10:21> General appearance: alert, in no apparent distress, obese Head exam: Present: atraumatic, normocephalic, normal inspection Eye exam: Present: normal appearance, PERRL, EOMI. Absent: scleral icterus, conjunctival injection, periorbital swelling ENT exam: Present: normal exam, mucous membranes moist Neck exam: Present: normal inspection. Absent: tenderness, meningismus, lymphadenopathy Respiratory exam: Present: normal lung sounds bilaterally. Absent: respiratory distress, wheezes, rales, rhonchi, stridor Cardiovascular Exam: Present: regular rate, normal rhythm, normal heart sounds. Absent: systolic murmur, diastolic murmur, rubs, gallop, clicks GI/Abdominal exam: Present: soft, normal bowel sounds. Absent: distended, tenderness, guarding, rebound, rigid Extremities exam: Present: normal inspection, full ROM, normal capillary refill. Absent: tenderness, pedal edema, joint swelling, calf tenderness Back exam: Present: normal inspection Neurological exam: Present: alert, oriented X3, CN II-XII intact Psychiatric exam: Present: normal affect, normal mood Skin exam: Present: warm, dry, intact, normal color. Absent: rash <Christos Anderson - Last Filed: 04/22/23 16:53> - General Exam Comments Initial Comments: Visual Physical Exam Vital signs reviewed General: Well-appearing, nontoxic, no acute distress. Head: Normocephalic, atraumatic Eyes: PERRLA, EOMI ENT: Airway patent Chest: Nonlabored breathing Skin: No visual rash, normal skin tone Neuro: Alert and oriented 3 Musculoskeletal: No gross abnormalities (Sola Inman) Course <Christos Anderson - Last Filed: 04/22/23 16:53> Vital Signs 04/21/23 04/21/23 04/21/23 10:22 13:00 14:11 Temperature 98.3 F 97.7 F 97.7 F Pulse Rate 72 89 73 Respiratory 20 20 20 Rate Blood Pressure 172/82 120/69 128/72 O2 Sat by Pulse 99 97 99 Oximetry - Reevaluation(s) Reevaluation #1: 04/21/23 13:45 Record is reviewed (Christos Anderson) Reevaluation #2: 04/21/23 13:45 Patient's pain is improved, given will care here in the ER (Christos Anderson) Reevaluation #3: 04/21/23 13:45 Informed of results and questions answered (Christos Anderson) Reevaluation #4: 04/21/23 13:27 Was pt. sent in by a medical professional or institution (CHARAN Adams, FRONT DESK OFFICER, urgent care, hospital, or halfway...) When possible be specific @ -no Did you speak to anyone other than the patient for history (EMS, parent, family, police, friend...)? What history was obtained from this source @ -no Did you review nursing and triage notes (agree or disagree)? Why? @ -agree Are old charts reviewed (outside hosp., previous admission, EMS record, old EKG, old radiological studies, urgent care reports/EKG's, halfway records)? Report findings @ -yes Differential Diagnosis (chest pain, altered mental status, abdominal pain women, abdominal pain men, vaginal bleeding, weakness, fever, dyspnea, syncope, headache, dizziness, GI bleed, back pain, seizure, CVA, palpatations, mental he alth, musculoskeletal)? @ -prior EKG interpreted by me (3pts min.). @ -no X-rays interpreted by me (1pt min.). @ -no CT interpreted by me (1pt min.). @ -no U/S interpreted by me (1pt. min.). @ -no What testing was considered but not performed or refused? (CT, X-rays, U/S, labs)? Why? @ -none What meds were considered but not given or refused? Why? @ -none Did you discuss the management of the patient with other professionals (professionals i.e. CHARAN Adams, FRONT DESK OFFICER, lab, RT, psych nurse, social media marketing specialist, uniforms sales representative, teacher, operations officer trust department, pillowcase cleaner)? Give summary @ -no Was smoking cessation discussed for >3mins.? @ -no Was critical care preformed (if so, how long)? @ -no Were there social determinants of health that impacted care today? How? (Homelessness, low income, unemployed, alcoholism, drug addiction, transportation, low edu. Level, literacy, decrease access to med. care, senior care, re hab)? @ -none Was there de-escalation of care discussed even if they declined (Discuss DNR or withdrawal of care, Hospice)? DNR status @ -no What co-morbidities impacted this encounter? (DM, HTN, Smoking, COPD, CAD, Cancer, CVA, ARF, Chemo, Hep., AIDS, mental health diagnosis, sleep apnea, morbid obesity)? @ -none Was patient admitted / discharged? Hospital course, mention meds given and route, prescriptions, significant lab abnormalities, going to OR and other pertinent info. @ - 68 Female who does have panniculitis or intertrigo off her pannus. Patient will be placed on wound care with antifungal powder and can be discharged home Discharge Undiagnosed new problem with uncertain prognosis? @ -no Drug Therapy requiring intensive monitoring for toxicity (Heparin, Nitro, Insulin, Cardizem)? @ -no Were any procedures done? @ -no Diagnosis/symptom? @ -Back pain, intertrigo, panniculitis pannus infection cellulitis and Sofi infection of pannus Acute, or Chronic, or Acute on Chronic? @ -Acute Uncomplicated (without systemic symptoms) or Complicated (systemic symptoms)? @ -Complicated Side effects of treatment? @ -no Exacerbation, Progression, or Severe Exacerbation? @ -exacerbation Poses a threat to life or bodily function? How? (Chest pain, [place], [place], pneumonia, PE, COPD, DKA, ARF, appy, cholecystitis, CVA, Diverticulitis, Homicidal, Suicidal, threat to staff... and all critical care pts) @ -no (Christos Anderson) Medical Decision Making <Sola Inman - Last Filed: 04/21/23 10:21> - Lab Data Result diagrams: 04/21/23 10:30 04/21/23 10:30 <Christos Anderson - Last Filed: 04/22/23 16:53> - Medical Decision Making I performed the QuickNote portion of this chart. Signed Sola Inman PA-C. (Sola Inman) 68 Female who does have panniculitis or intertrigo off her pannus. Patient will be placed on wound care with antifungal powder and can be discharged home (Christos Anderson) - Lab Data Lab Results 04/21/23 04/21/23 04/21/23 Range/Units 10:30 10:30 10:30 WBC 9.1 (3.8-10.6) k/uL RBC 3.65 L (3.80-5.40) m/uL Hgb 7.9 L (11.4-16.0) gm/dL Hct 26.4 L (34.0-46.0) % MCV 72.3 L (80.0-100.0) fL MCH 21.6 L (25.0-35.0) pg MCHC 29.8 L (31.0-37.0) g/dL RDW 16.6 H (11.5-15.5) % Plt Count 467 H (150-450) k/uL MPV 7.2 Neutrophils % 80 % Lymphocytes % 11 % Monocytes % 6 % Eosinophils % 1 % Basophils % 0 % Neutrophils # 7.3 (1.3-7.7) k/uL Lymphocytes # 1.0 (1.0-4.8) k/uL Monocytes # 0.6 (0-1.0) k/uL Eosinophils # 0.1 (0-0.7) k/uL Basophils # 0.0 (0-0.2) k/uL Hypochromasia Marked Anisocytosis Slight Microcytosis Moderate ESR 29 (0-30) mm/Hr Sodium 136 L (137-145) mmol/L Potassium 4.8 (3.5-5.1) mmol/L Chloride 106 (98-107) mmol/L Carbon Dioxide 23 (22-30) mmol/L Anion Gap 7 mmol/L BUN 15 (7-17) mg/dL Creatinine 0.49 L (0.52-1.04) mg/dL Est GFR (CKD-EPI)AfAm >90 (>60 ml/min/1.73 sqM) Est GFR (CKD-EPI)NonAf >90 (>60 ml/min/1.73 sqM) Glucose 113 H (74-99) mg/dL Plasma Lactic Acid Steve 1.5 (0.7-2.0) mmol/L Calcium 8.5 (8.4-10.2) mg/dL Total Bilirubin 0.3 (0.2-1.3) mg/dL AST 39 H (14-36) U/L ALT 28 (4-34) U/L Alkaline Phosphatase 112 (38-126) U/L Total Protein 6.2 L (6.3-8.2) g/dL Albumin 3.5 (3.5-5.0) g/dL Disposition <Sola Inman - Last Filed: 04/21/23 10:21> Is patient prescribed a controlled substance at d/c from ED?: No Time of Disposition: 13:20 <Christos Anderson - Last Filed: 04/22/23 16:53> Clinical Impression: Back pain, Cellulitis, Sofi-induced panniculitis, Intertrigo, Mechanical back pain Disposition: HOME SELF-CARE Condition: Fair Instructions (If sedation given, give patient instructions): Back Pain (ED), Skin Yeast Infection (ED) Referrals: Edd Lee MD [Primary Care Provider] - 1-2 days
[2023-04-21 10:31] VITALS: RESP 20
[2023-04-21 10:49] LABS: Anisocytosis Slight; Basophils % (A) 0 %; Eosinophils # (A) 0.1 k/uL (0-0.7); Eosinophils % (A) 1 %; HCT 26.4 % (34.0-46.0); HGB 7.9 gm/dL (11.4-16.0); Hypochromasia Marked; Lymphocytes % (A) 11 %; MCH 21.6 pg (25.0-35.0); MCHC 29.8 g/dL (31.0-37.0); MCV 72.3 fL (80.0-100.0); Mean Platelet Volume 7.2; Microcytosis Moderate; Monocytes # (A) 0.6 k/uL (0-1.0); Monocytes % (A) 6 %; Neutrophils # (A) 7.3 k/uL (1.3-7.7); Neutrophils % (A) 80 %; Platelet Count 467 k/uL (150-450); RBC 3.65 m/uL (3.80-5.40); RDW 16.6 % (11.5-15.5); WBC 9.1 k/uL (3.8-10.6)
[2023-04-21 11:20] LABS: ALT 28 U/L (4-34); AST 39 U/L (14-36); African American GFR (CKD) >90 (>60 ml/min/1.73 sqM); Albumin 3.5 g/dL (3.5-5.0); Alkaline Phosphatase 112 U/L (38-126); Anion Gap 7 mmol/L; Blood Urea Nitrogen 15 mg/dL (7-17); Calcium 8.5 mg/dL (8.4-10.2); Carbon Dioxide 23 mmol/L (22-30); Chloride 106 mmol/L (98-107); Glucose 113 mg/dL (74-99); Non-African American GFR(CKD) >90 (>60 ml/min/1.73 sqM); Potassium 4.8 mmol/L (3.5-5.1); Sodium 136 mmol/L (137-145); Total Bilirubin 0.3 mg/dL (0.2-1.3); Total Protein 6.2 g/dL (6.3-8.2)
[2023-04-21 13:22] VITALS: TEMP 97.7
[2023-04-21] MEDS ORDERED: HYDROmorphone 1 MG/ML 1 ML SYRINGE IM STA (13:22)
[2023-04-21] MEDS ORDERED: LIDOCAINE 4% PATCH TOPICAL ONE (13:24)
[2023-04-21] MEDS ORDERED: FLUCONAZOLE 100 MG TAB PO ONE (13:24)
[2023-04-21] MEDS ORDERED: NYSTATIN 100,000 UNIT/GM POWD 15 GM TOPICAL STA (13:24)
[2023-04-21 14:34] VITALS: BP 128/72; PULSE 73
[2023-04-21 15:34] LABS: Erythrocyte Sedimentation Rate 29 mm/Hr (0-30)
== END 2023-04-21 14:12 | disposition home or self-care (01) ==
LOC: EC 10:18
DX: L30.4 Erythema intertrigo (principal); M79.3 Panniculitis, unspecified; M54.50 Low back pain, unspecified; E78.5 Hyperlipidemia, unspecified; F32.A Depression, unspecified; E66.01 Morbid (severe) obesity due to excess calories; G47.33 Obstructive sleep apnea (adult) (pediatric); I11.0 Hypertensive heart disease with heart failure; I25.10 Atherosclerotic heart disease of native coronary artery without angina pectoris; I25.2 Old myocardial infarction; I50.9 Heart failure, unspecified; K21.9 Gastro-esophageal reflux disease without esophagitis; M19.90 Unspecified osteoarthritis, unspecified site; Z79.01 Long term (current) use of anticoagulants; Z79.890 Hormone replacement therapy; Z79.899 Other long term (current) drug therapy; Z88.2 Allergy status to sulfonamides; Z88.8 Allergy status to other drugs, medicaments and biological substances; Z95.5 Presence of coronary angioplasty implant and graft; Z68.42 Body mass index [BMI] 45.0-49.9, adult
CPT/HCPCS: 36415; 80053; 85652; 83605; 85025; 86140; 99284; 96372; J1170

== ENCOUNTER 2023-04-26 16:29 | Inpatient (IN) | payer MEDICARE ==
--- NOTE | 2023-04-26 16:35 | ED ---
SOB HPI - General Source: patient, RN notes reviewed Mode of arrival: ambulatory Limitations: no limitations - History of Present Illness MD Complaint: shortness of breath <Sola Inman - Last Filed: 04/26/23 16:36> <Cassi Bhatt - Last Filed: 04/27/23 05:12> - General Chief Complaint: Shortness of Breath Stated Complaint: CADEN SOB Time Seen by Provider: 04/26/23 16:33 - History of Present Illness Initial Comments: This is a 68-year-old female who presents to the emergency department for shortness of breath and leg swelling. Reports gaining 29 pounds in the last 30 days, largely in the lower extremities. She does have a hx of CHF and also tested positive for COVID a couple of weeks ago. (Sola Inman) 68-year-old female with history of CHF presenting with chief complaint of shortness of breath. Patient has gained over 20 pounds over the last few weeks. She admits to a large amount of lower extremity swelling. She has difficulty breathing with lying flat. She saw her PCP in the office a few days ago, she tells me that she was told to take Lasix 40 mg 3 times a day and come to ER if symptoms do not improved by Monday. No chest pain. No nausea or vomiting. No fever, chills, cough, congestion, sore throat. No palpitations. No numbness tingling or weakness. (Cassi Bhatt) - Related Data Home Medications Medication Instructions Recorded Confirmed rOPINIRole HCL [Requip] 3 mg PO TID 11/09/17 04/26/23 Apixaban [Eliquis] 5 mg PO BID 01/07/22 04/26/23 Butalb/APAP/Caff 50-325-40Mg 1 tab PO BID PRN 07/08/22 04/26/23 [Fioricet 50-325-40] Diclofenac Potassium [Cataflam] 50 mg PO BID 07/08/22 04/26/23 Furosemide [Lasix] 40 mg PO DAILY PRN 07/08/22 04/26/23 Ipratropium-Albuterol Nebulize 3 ml INHALATION RT-QID PRN 07/08/22 04/26/23 [Duoneb 0.5 mg-3 mg/3 ml Soln] Ergocalciferol [Vitamin D2 (1250 1,250 mcg PO RALPH@2100 10/10/22 04/26/23 Mcg = 15589 Iu)] HYDROcodone/APAP 10-325MG [[place] 1 tab PO TID 10/10/22 04/26/23 10-325] Levothyroxine Sodium [Synthroid] 88 mcg PO DAILY 10/10/22 04/26/23 Albuterol Inhaler [Ventolin Hfa 1 - 2 puff INHALATION RT-Q6H PRN 04/26/23 04/26/23 Inhaler] FLUoxetine HCL 40 mg PO DAILY 04/26/23 04/26/23 Fluconazole [Diflucan] 100 mg PO DAILY 04/26/23 04/26/23 Fluticasone/Umeclidin/Vilanter 1 puff INHALATION RT-DAILY 04/26/23 04/26/23 [Trelegy Ellipta 100-62.5-25] Pregabalin [Lyrica] 200 mg PO TID 04/26/23 04/26/23 Topiramate [Topamax] 100 mg PO BID 04/26/23 04/26/23 hydrOXYzine pamoate 100 mg PO HS 04/26/23 04/26/23 metOLazone [Zaroxolyn] 5 mg PO DAILY 04/26/23 04/26/23 tiZANidine [Zanaflex] 4 mg PO BID PRN 04/26/23 04/26/23 Allergies Allergy/AdvReac Type Severity Reaction Status Date / Time cefprozil [From Cefzil] Allergy Unknown Verified 04/26/23 22:48 cyclobenzaprine Allergy Rash/Hives Verified 04/26/23 22:48 [From Flexeril] Sulfa (Sulfonamide Allergy Rash/Hives Verified 04/26/23 22:48 Antibiotics) valdecoxib [From Bextra] Allergy Unknown Verified 04/26/23 22:48 metaxalone [From Skelaxin] AdvReac Nausea & Verified 04/26/23 22:48 Vomiting Review of Systems ROS Other: All systems not noted in ROS Statement are negative. <Sola Inman - Last Filed: 04/26/23 16:36> ROS Other: All systems not noted in ROS Statement are negative. <Cassi Bhatt - Last Filed: 04/27/23 05:12> ROS Statement: Those systems with pertinent positive or pertinent negative responses have been documented in the HPI. 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 Alex-en-Y gastric bypass for morbid o besity, has home o2 that was prescribed in 2019 but currently does not use Last Myocardial Infarction Date:: 2002 History of Any Multi-Drug Resistant Organisms: None Reported Past Surgical History: Bariatric Surgery, Hernia Repair, Hysterectomy, Joint Replacement, Orthopedic Surgery, Tubal Ligation Additional Past Surgical History / Comment(s): 10/19/19 PCI with stent, EGDs, colonoscopy/benign polyps, gastric bypass with revision, ventral and hiatal hernia repair, bladder suspension, R rotator curr repair/revision, L knee arthroscopy, rectocele, perinealplasty, 07/05/20 left shoulder replacement, 11/11/21 right shoulder replacement Past Anesthesia/Blood Transfusion Reactions: Motion Sickness Past Psychological History: Anxiety, Depression Smoking Status: Never smoker Past Alcohol Use History: Rare Past Drug Use History: None Reported - Past Family History Mother Family Medical History: Coronary Artery Disease (CAD), Eye Disorder Additional Family Medical History / Comment(s): Mother is 91 yrs old Father Family Medical History: Myocardial Infarction (AR) Additional Family Medical History / Comment(s): Father of a massive AR at the age of 53 yrs. <Vojaniceey,Sola - Last Filed: 04/26/23 16:36> General Exam <Sola Inman - Last Filed: 04/26/23 16:36> Limitations: no limitations General appearance: alert, in no apparent distress Head exam: Present: atraumatic, normocephalic Eye exam: Present: normal appearance Neck exam: Present: normal inspection Respiratory exam: Present: normal lung sounds bilaterally. Absent: respiratory distress, wheezes, rales, rhonchi, stridor Cardiovascular Exam: Present: regular rate, normal rhythm, normal heart sounds. Absent: systolic murmur, diastolic murmur, rubs, gallop, clicks Extremities exam: Present: pedal edema Neurological exam: Present: alert, oriented X3 Psychiatric exam: Present: normal affect, normal mood Skin exam: Present: warm, dry <Cassi Bhatt - Last Filed: 04/27/23 05:12> - General Exam Comments Initial Comments: Visual Physical Exam Vital signs reviewed General: Well-appearing, nontoxic, no acute distress. Head: Normocephalic, atraumatic Eyes: PERRLA, EOMI ENT: Airway patent Chest: Nonlabored breathing Skin: No visual rash, normal skin tone Neuro: Alert and oriented 3 Musculoskeletal: No gross abnormalities (Sola Inman) Course Vital Signs 04/26/23 04/27/23 04/27/23 16:33 00:12 03:46 Temperature 98.0 F Pulse Rate 93 70 75 Respiratory 24 18 14 Rate Blood Pressure 139/62 150/70 120/50 O2 Sat by Pulse 95 98 96 Oximetry Medical Decision Making <Sola Inman - Last Filed: 04/26/23 16:36> - Lab Data Result diagrams: 04/26/23 17:09 04/26/23 17:09 <Cassi Bhatt - Last Filed: 04/27/23 05:12> - Medical Decision Making I performed the QuickNote portion of this chart. Signed Sola Inman PA-C. (Sola Inman) Was pt. sent in by a medical professional or institution (CHARAN Adams, RECORDS COORDINATOR, urgent care, hospital, or correction...) When possible be specific @ -No Did you speak to anyone other than the patient for history (EMS, parent, family, police, friend...)? What history was obtained from this source @ -No Did you review nursing and triage notes (agree or disagree)? Why? @ -I reviewed and agree with nursing and triage notes Were old charts reviewed (outside hosp., previous admission, EMS record, old EKG, old radiological studies, urgent care reports/EKG's, correction records)? Report findings @ -No old charts were reviewed Differential Diagnosis (chest pain, altered mental status, abdominal pain women, abdominal pain men, vaginal bleeding, weakness, fever, dyspnea, syncope, headache, dizziness, GI bleed, back pain, seizure, CVA, palpatations, mental health, musculoskeletal)? @ -MDM Differential Dyspnea: Coronary syndrome, arrhythmia, tamponade, asthma, COPD, pulmonary embolism, pneumonia, pneumothorax, pulmonary effusion, anaphylaxis, diabetic ketoacidosis, flailed chest, pulmonary contusion, diaphragmatic rupture, anemia, neuromuscular this is not meant to be an all-inclusive list. EKG interpreted by me (3pts min.). @ -EKG shows sinus rhythm ventricular rate 66. NM interval 200. QRS 91. QT 428. QTC 442. X-rays interpreted by me (1pt min.). @ -Chest x-ray shows cardiomegaly and mild pulmonary vascular congestion. Correlate BNP for congestive heart failure CT interpreted by me (1pt min.). @ -None done U/S interpreted by me (1pt. min.). @ -None done What testing was considered but not performed or refused? (CT, X-rays, U/S, labs)? Why? @ -None What meds were considered but not given or refused? Why? @ -None Did you discuss the management of the patient with other professionals (professionals i.e. , PA, RECORDS COORDINATOR, lab, RT, psych nurse, social and political studies professor, attorney lawyer, teacher, chief informatics officer, family service caseworker)? Give summary @ -I spoke with Dr. Lee who was agreeable for admission Was smoking cessation discussed for >3mins.? @ -No Was critical care preformed (if so, how long)? @ -No Were there social determinants of health that impacted care today? How? (Homelessness, low income, unemployed, alcoholism, drug addiction, transportation, low edu. Level, literacy, decrease access to med. care, fci, rehab)? @ -No Was there de-escalation of care discussed even if they declined (Discuss DNR or withdrawal of care, Hospice)? DNR status @ -No What co-morbidities impacted this encounter? (DM, HTN, Smoking, COPD, CAD, Cancer, CVA, ARF, Chemo, Hep., AIDS, mental health diagnosis, sleep apnea, morbid obesity)? @ -CHF Was patient admitted / discharged? Hospital course, mention meds given and route, prescriptions, significant lab abnormalities, going to OR and other pertinent info. @ -68-year-old female presenting with chief complaint of shortness of breath and lower extremity swelling. PCP increased her Lasix to 40 mg twice a day and symptoms are persisting. On exam she has significant lower extremity edema. BNP 737. Negative troponin. Chest x-ray consistent with CHF. I spoke with her PCP who was agreeable with admission and observation. Patient is agreeable with this plan. I discussed this case with my attending Dr. Henderson Undiagnosed new problem with uncertain prognosis? @ -No Drug Therapy requiring intensive monitoring for toxicity (Heparin, Nitro, Insulin, Cardizem)? @ -No Were any procedures done? @ -No Diagnosis/symptom? @ -CHF exacerbation Acute, or Chronic, or Acute on Chronic? @ -Acute Uncomplicated (without systemic symptoms) or Complicated (systemic symptoms)? @ Complicated Side effects of treatment? @ Exacerbation, Progression, or Severe Exacerbation? @ -Exacerbation Poses a threat to life or bodily function? How? (Chest pain, USA, AR, pneumonia, PE, COPD, DKA, ARF, appy, cholecystitis, CVA, Diverticulitis, Homicidal, Suicidal, threat to staff... and all critical care pts) @ -yes (Cassi Bhatt) - Lab Data Lab Results 04/26/23 04/26/23 04/26/23 Range/Units 17:09 17:09 17:09 WBC 7.6 (3.8-10.6) k/uL RBC 3.99 (3.80-5.40) m/uL Hgb 8.6 L (11.4-16.0) gm/dL Hct 28.5 L (34.0-46.0) % MCV 71.5 L (80.0-100.0) fL MCH 21.7 L (25.0-35.0) pg MCHC 30.4 L (31.0-37.0) g/dL RDW 16.6 H (11.5-15.5) % Plt Count 507 H (150-450) k/uL MPV 6.3 Neutrophils % 70 % Lymphocytes % 18 % Monocytes % 6 % Eosinophils % 3 % Basophils % 0 % Neutrophils # 5.3 (1.3-7.7) k/uL Lymphocytes # 1.4 (1.0-4.8) k/uL Monocytes # 0.5 (0-1.0) k/uL Eosinophils # 0.3 (0-0.7) k/uL Basophils # 0.0 (0-0.2) k/uL Hypochromasia Marked Anisocytosis Slight Microcytosis Moderate PT 9.5 L (10.0-12.5) sec INR 0.8 (<1.2) APTT 24.2 (22.0-30.0) sec Sodium 133 L (137-145) mmol/L Potassium 5.0 (3.5-5.1) mmol/L Chloride 101 (98-107) mmol/L Carbon Dioxide 26 (22-30) mmol/L Anion Gap 6 mmol/L BUN 18 H (7-17) mg/dL Creatinine 0.57 (0.52-1.04) mg/dL Est GFR (CKD-EPI)AfAm >90 (>60 ml/min/1.73 sqM) Est GFR (CKD-EPI)NonAf >90 (>60 ml/min/1.73 sqM) Glucose 93 (74-99) mg/dL Plasma Lactic Acid Steve (0.7-2.0) mmol/L Calcium 8.6 (8.4-10.2) mg/dL Total Bilirubin 0.5 (0.2-1.3) mg/dL AST 35 (14-36) U/L ALT 23 (4-34) U/L Alkaline Phosphatase 110 (38-126) U/L Troponin I (0.000-0.034) ng/mL NT-Pro-B Natriuret Pep 737 pg/mL Total Protein 6.7 (6.3-8.2) g/dL Albumin 3.7 (3.5-5.0) g/dL 04/26/23 04/26/23 Range/Units 17:09 17:09 WBC (3.8-10.6) k/uL RBC (3.80-5.40) m/uL Hgb (11.4-16.0) gm/dL Hct (34.0-46.0) % MCV (80.0-100.0) fL MCH (25.0-35.0) pg MCHC (31.0-37.0) g/dL RDW (11.5-15.5) % Plt Count (150-450) k/uL MPV Neutrophils % % Lymphocytes % % Monocytes % % Eosinophils % % Basophils % % Neutrophils # (1.3-7.7) k/uL Lymphocytes # (1.0-4.8) k/uL Monocytes # (0-1.0) k/uL Eosinophils # (0-0.7) k/uL Basophils # (0-0.2) k/uL Hypochromasia Anisocytosis Microcytosis PT (10.0-12.5) sec INR (<1.2) APTT (22.0-30.0) sec Sodium (137-145) mmol/L Potassium (3.5-5.1) mmol/L Chloride (98-107) mmol/L Carbon Dioxide (22-30) mmol/L Anion Gap mmol/L BUN (7-17) mg/dL Creatinine (0.52-1.04) mg/dL Est GFR (CKD-EPI)AfAm (>60 ml/min/1.73 sqM) Est GFR (CKD-EPI)NonAf (>60 ml/min/1.73 sqM) Glucose (74-99) mg/dL Plasma Lactic Acid Steve 0.9 (0.7-2.0) mmol/L Calcium (8.4-10.2) mg/dL Total Bilirubin (0.2-1.3) mg/dL AST (14-36) U/L ALT (4-34) U/L Alkaline Phosphatase (38-126) U/L Troponin I <0.012 (0.000-0.034) ng/mL NT-Pro-B Natriuret Pep pg/mL Total Protein (6.3-8.2) g/dL Albumin (3.5-5.0) g/dL Disposition <Sola Inman Last Filed: 04/26/23 16:36> Time of Disposition: 21:58 <Cassi Bhatt - Last Filed: 04/27/23 05:12> Clinical Impression: CHF (congestive heart failure) Disposition: ADMITTED IP TO THIS HOSP Condition: Fair
--- NOTE | 2023-04-26 16:56 | XR ---
EXAMINATION TYPE: XR chest 2V DATE OF EXAM: 04/26/2023 4:51 PM CLINICAL INDICATION:Female, 68 years old with history of difficulty breathing; [facility] COMPARISON: Chest radiographs from 10/10/2022. TECHNIQUE: XR chest 2V Frontal and lateral views of the chest. FINDINGS: Lungs/Pleura: There is no evidence of pleural effusion, focal consolidation, or pneumothorax. Pulmonary vascularity: Pulmonary vascular congestion. Heart/mediastinum: Cardiomediastinal silhouette is enlarged and stable. Musculoskeletal: No acute osseous pathology. Bilateral shoulder arthroplasties appear intact. IMPRESSION: Cardiomegaly and mild pulmonary vascular congestion. Correlate with BNP for congestive heart failure.
[2023-04-26 19:45] LABS: Anisocytosis Slight; Basophils % (A) 0 %; Eosinophils # (A) 0.3 k/uL (0-0.7); Eosinophils % (A) 3 %; HCT 28.5 % (34.0-46.0); HGB 8.6 gm/dL (11.4-16.0); Hypochromasia Marked; Lymphocytes # (A) 1.4 k/uL (1.0-4.8); Lymphocytes % (A) 18 %; MCH 21.7 pg (25.0-35.0); MCHC 30.4 g/dL (31.0-37.0); MCV 71.5 fL (80.0-100.0); Mean Platelet Volume 6.3; Microcytosis Moderate; Monocytes # (A) 0.5 k/uL (0-1.0); Monocytes % (A) 6 %; Neutrophils # (A) 5.3 k/uL (1.3-7.7); Neutrophils % (A) 70 %; Platelet Count 507 k/uL (150-450); RBC 3.99 m/uL (3.80-5.40); RDW 16.6 % (11.5-15.5); WBC 7.6 k/uL (3.8-10.6)
[2023-04-26 19:56] LABS: INR 0.8 (<1.2); Partial Thromboplastin Time 24.2 sec (22.0-30.0); Prothrombin Time 9.5 sec (10.0-12.5)
[2023-04-26 19:57] LABS: ALT 23 U/L (4-34); African American GFR (CKD) >90 (>60 ml/min/1.73 sqM); Albumin 3.7 g/dL (3.5-5.0); Anion Gap 6 mmol/L; Blood Urea Nitrogen 18 mg/dL (7-17); Calcium 8.6 mg/dL (8.4-10.2); Carbon Dioxide 26 mmol/L (22-30); Chloride 101 mmol/L (98-107); Glucose 93 mg/dL (74-99); Non-African American GFR(CKD) >90 (>60 ml/min/1.73 sqM); Sodium 133 mmol/L (137-145); Total Bilirubin 0.5 mg/dL (0.2-1.3); Total Protein 6.7 g/dL (6.3-8.2)
[2023-04-26 20:03] LABS: NT-Pro-B-Type Natriuretic Pept 737 pg/mL
[2023-04-26 20:08] LABS: AST 35 U/L (14-36); Alkaline Phosphatase 110 U/L (38-126)
[2023-04-26] MEDS ORDERED: ACETAMINOPHEN TAB 325 MG TAB PO PRN (21:56)
[2023-04-26] MEDS ORDERED: NALOXONE 0.4 MG/ML 1 ML VIAL IV PRN (21:56)
[2023-04-26] MEDS: FUROSEMIDE 10 MG/ML 4 ML VIAL IV SCH (22:09)
[2023-04-26] MEDS: HYDROcodone/APAP 10-325MG 1 EACH TAB PO PRN (22:39)
[2023-04-27] MEDS: HYDROcodone/APAP 10-325MG 1 EACH TAB PO PRN ×2 (05:29→13:59)
[2023-04-27] MEDS: LEVOTHYROXINE 88 MCG TAB PO SCH (06:21)
[2023-04-27] MEDS ORDERED: FAMOTIDINE 20 MG TAB PO SCH (09:00)
[2023-04-27] MEDS: FUROSEMIDE 10 MG/ML 4 ML VIAL IV SCH ×2 (10:25→20:01)
[2023-04-27] MEDS: metOLazone 5 MG TAB PO SCH (10:27)
[2023-04-27] MEDS: GABAPENTIN 400 MG CAP PO SCH ×2 (10:27→15:55)
[2023-04-27] MEDS: APIXABAN 5 MG TAB PO SCH ×2 (10:27→20:02)
--- NOTE | 2023-04-27 10:51 | P.HPIM ---
History of Present Illness H&P Date: 04/27/23 Chief Complaint: Dyspnea This is a 68-year-old female with past medical history significant for coronary artery disease, CVA with right-sided weakness, PE/DVT, GI bleed, hypertension, hyperlipidemia, obstructive sleep apnea not on CPAP, hypothyroidism, morbid obesity with previous Alex-en-Y gastric bypass, tachycardia Subu syndrome, congestive heart failure, anxiety/depression and multiple other medical issues presented to the ER with worsening dyspnea, weight gain of 29 pounds over the last month accompanied by chest pressure and increased lower extremity edema. Patient reports she had COVID a couple weeks ago, followed up with PCP, placed on metolazone x 1 week in addition to her normal Lasix dose. Reported some improvement on the metolazone, but continued to have significant exertional shortness of breath, unable to get up her stairs, and came in to the ER. Reporting congested, stuffy nose with yellow nasal drainage. Denies chest pain, palpitations. Troponin negative x 1, EKG reported sinus rhythm, chest x-ray reported cardiomegaly with mild pulmonary vascular congestion. afebrile, normal WBC, hemoglobin 8.6, platelets 507, INR 0.8, sodium 133, potassium 5, bicarb 26, BUN 18, creatinine 0.57, glucose 93, lactic acid 0.9, LFTs within normal limits, proBNP 737. Echo from 10/11/2022 reported mild LV systolic dysfunction with EF of 40 to 45%. diuresing with IV push Lasix initiated in the ER and patient reports breathing easier now, nearly laying flat on stretcher. Review of Systems ROS Statement: Those systems with pertinent positive or pertinent negative responses have been documented in the HPI. ROS Other: All systems not noted in ROS Statement are negative. 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 Alex-en-Y gastric bypass for morbid obesity, has home o2 that was prescribed in 2019 but currently does not use Last Myocardial Infarction Date:: 2002 History of Any Multi-Drug Resistant Organisms: None Reported Past Surgical History: Bariatric Surgery, Hernia Repair, Hysterectomy, Joint Replacement, Orthopedic Surgery, Tubal Ligation Additional Past Surgical History / Comment(s): 10/19/19 PCI with stent, EGDs, colonoscopy/benign polyps, gastric bypass with revision, ventral and hiatal hernia repair, bladder suspension, R rotator curr repair/revision, L knee arthroscopy, rectocele, perinealplasty, 07/05/20 left shoulder replacement, 11/11/21 right shoulder replacement Past Anesthesia/Blood Transfusion Reactions: Motion Sickness Past Psychological History: Anxiety, Depression Smoking Status: Never smoker Past Alcohol Use History: Rare Past Drug Use History: None Reported - Past Family History Mother Family Medical History: Coronary Artery Disease (CAD), Eye Disorder Additional Family Medical History / Comment(s): Mother is 91 yrs old Father Family Medical History: Myocardial Infarction (UT) Additional Family Medical History / Comment(s): Father of a massive [place] at the age of 53 yrs. Medications and Allergies Home Medications Medication Instructions Recorded Confirmed Type rOPINIRole HCL [Requip] 3 mg PO TID 11/09/17 04/26/23 History Apixaban [Eliquis] 5 mg PO BID 01/07/22 04/26/23 History Butalb/APAP/Caff 50-325-40Mg 1 tab PO BID PRN 07/08/22 04/26/23 History [Fioricet 50-325-40] Diclofenac Potassium [Cataflam] 50 mg PO BID 07/08/22 04/26/23 History Furosemide [Lasix] 40 mg PO DAILY PRN 07/08/22 04/26/23 History Ipratropium-Albuterol Nebulize 3 ml INHALATION RT-QID PRN 07/08/22 04/26/23 History [Duoneb 0.5 mg-3 mg/3 ml Soln] Ergocalciferol [Vitamin D2 (1250 1,250 mcg PO RALPH@2100 10/10/22 04/26/23 History Mcg = 30492 Iu)] HYDROcodone/APAP 10-325MG [[place] 1 tab PO TID 10/10/22 04/26/23 History 10-325] Levothyroxine Sodium [Synthroid] 88 mcg PO DAILY 10/10/22 04/26/23 History Albuterol Inhaler [Ventolin Hfa 1 - 2 puff INHALATION RT-Q6H PRN 04/26/23 04/26/23 History Inhaler] FLUoxetine HCL 40 mg PO DAILY 04/26/23 04/26/23 History Fluconazole [Diflucan] 100 mg PO DAILY 04/26/23 04/26/23 History Fluticasone/Umeclidin/Vilanter 1 puff INHALATION RT-DAILY 04/26/23 04/26/23 History [Trelegy Ellipta 100-62.5-25] Pregabalin [Lyrica] 200 mg PO TID 04/26/23 04/26/23 History Topiramate [Topamax] 100 mg PO BID 04/26/23 04/26/23 History hydrOXYzine pamoate 100 mg PO HS 04/26/23 04/26/23 History metOLazone [Zaroxolyn] 5 mg PO DAILY 04/26/23 04/26/23 History tiZANidine [Zanaflex] 4 mg PO BID PRN 04/26/23 04/26/23 History Allergies Allergy/AdvReac Type Severity Reaction Status Date / Time cefprozil [From Cefzil] Allergy Unknown Verified 04/26/23 22:48 cyclobenzaprine Allergy Rash/Hives Verified 04/26/23 22:48 [From Flexeril] Sulfa (Sulfonamide Allergy Rash/Hives Verified 04/26/23 22:48 Antibiotics) valdecoxib [From Bextra] Allergy Unknown Verified 04/26/23 22:48 metaxalone [From Skelaxin] AdvReac Nausea & Verified 04/26/23 22:48 Vomiting Physical Exam Vitals: Vital Signs Temp Pulse Resp BP Pulse Ox 04/27/23 06:24 67 16 119/55 96 04/27/23 03:46 75 14 120/50 96 04/27/23 00:12 70 18 150/70 98 04/26/23 16:33 98.0 F 93 24 139/62 95 Intake and Output 04/26/23 04/27/23 04/27/23 22:59 06:59 14:59 Other: Weight 130.635 kg PHYSICAL EXAM: VITAL SIGNS: [As above] GENERAL: Alert, pleasant, sitting up in bed, no acute distress HEENT: Normocephalic conjunctivae normal. eyes normal. NECK: Supple, no JVD. No thyroid enlargement. No LNs CARDIOVASCULAR: S1, S2 regular.. No murmur RESPIRATION: Unlabored, equal air entry, scattered rhonchi with bilateral bases diminished . ABDOMEN: Soft, nontender . No guarding. no masses palpable. No ascites, No hepatosplenomegaly.Bowel sounds heard. LEGS: +2 to +3 pitting edema bilateral lower extremities. PSYCHIATRY: Alert and oriented X3, mood and affect normal. NERVOUS SYSTEM: Cranial N 2-12 grossly normal.No focal deficits. Strength and sensation grossly intact. Skin: Warm and dry, no rash Results CBC & Chem 7: 04/26/23 17:09 04/27/23 10:41 Labs: Abnormal Lab Results - Last 24 Hours (Table) 04/26/23 04/26/23 04/26/23 Range/Units 17:09 17:09 17:09 Hgb 8.6 L (11.4-16.0) gm/dL Hct 28.5 L (34.0-46.0) % MCV 71.5 L (80.0-100.0) fL MCH 21.7 L (25.0-35.0) pg MCHC 30.4 L (31.0-37.0) g/dL RDW 16.6 H (11.5-15.5) % Plt Count 507 H (150-450) k/uL PT 9.5 L (10.0-12.5) sec Sodium 133 L (137-145) mmol/L BUN 18 H (7-17) mg/dL Assessment and Plan Assessment: Acute on chronic CHF exacerbation, systolic dysfunction Recent COVID reports 2 weeks ago Obstructive sleep apnea not on CPAP therapy History of multiple PE,DVT, on Eliquis CAD, history of stent Hypertension Hyperlipidemia Hypothyroidism History of GI bleeding History of CVA/TIA with some residual right-sided weakness Peripheral neuropathy Chronic pain syndrome with nerve stimulator in back, unable to have MRI Fibromyalgia Morbid obesity,status post Alex-en-Y gastric bypass surgery 30 years ago,BMI 53 Hiatal hernia Raynolds syndrome Plan: Continue on current medication regimen, monitoring and symptomatic treatment. Procalcitonin ordered. diurese on Lasix IV push. Echo pending. Cardiology consult in place. The impression and plan of care has been dictated as directed. : I performed a history and examination of this patient, discussed the same with the dictator. I agree with the dictator's note ,documented as a scribe. Any additional findings or plans will be noted.
--- NOTE | 2023-04-27 10:56 | P.CRDCN ---
History of Present Illness Consult date: 04/27/23 Consult reason: congestive heart failure History of present illness: History of present illness: This is a 68-year-old female patient of Dr. Haseeb Charles with past medical history of coronary artery disease, hypertension, hyperlipidemia, history of CVA, obstructive sleep apnea not able to tolerate device, bilateral PE and DVT, morbid obesity status post Alex-en-Y. We have been asked to evaluate the patient for CHF. Patient is seen today in the emergency center waiting for a bed on the observation unit. Patient gives history that she came in for shortness of breath with weight gain of 29 pounds over the past 4 weeks, chest pressure and increased lower extremity edema. Patient apparently was positive for COVID a few weeks ago. She states that she has been taking Lasix 40 mg and was recently instructed to increase this to 3 times daily over the past 3 days without improvement. EKG sinus rhythm with no acute ST changes Chest x-ray: Cardiomegaly with mild pulmonary vascular congestion. WBC 7.6, hemoglobin 8.6, platelet count 507. INR 0.8. Sodium 133, potassium 5, creatinine 0.57 BUN 18. Liver function tests are normal. Lactic acid 0.9. Troponin negative x 1. proBNP 737.. Home cardiac medications: Eliquis 5 mg twice daily, Lasix 40 mg daily as needed, metolazone 5 mg daily. Patient is also on levothyroxine 88 mcg daily. Echocardiogram performed 10/11/2022 revealed mild LV systolic dysfunction with EF of 40 to 45%, mild MR, mild TR. Cardiac catheterization 10/18/[address] KAMILAH Vick revealed diagonal 80 to 90% stenosis. End-diastolic pressure of 22 mmHg and without any gradient across aortic valve. Patient subsequently underwent PCI of diagonal branch with a drug-eluting stent. Review Of Systems: At the time of my evaluation: Constitutional: No fever, no chills. No weakness, fatigue or lethargy. EENT: No headache. No dizziness. Lungs: + shortness of breath, cough, no sputum production. No wheezing. Cardiovascular: No chest pain, + lower extremity edema. No palpitations. No paroxysmal nocturnal dyspnea. No orthopnea. No lightheadedness or dizziness. No syncopal episodes. Abdominal: No abdominal pain. No nausea, vomiting. No diarrhea. No constipation. No bloody or tarry stools. Musculoskeletal: No myalgias. No muscle weakness, no frequent falls. Integumentary: No wounds. No rash. No unusual bruising. Neurologic: No aphasia. No facial droop. No change in mentation. Physical examination: Gen: This is a morbidly obese 68-year-old female. She appears to be in no acute distress VS: reviewed HEENT: Head is atraumatic, normocephalic. Pupils equal, round. Sclerae is anicteric. NECK: Supple. No JVD. LUNGS: Bilateral wheezing. No intercostal retractions. HEART: Regular rate and rhythm. No murmur. ABDOMEN: Soft No tenderness. EXTREMITIES: 2+ pedal edema. No calf tenderness. NEUROLOGICAL: Patient is awake, alert and oriented x3. Assessment: Acute on chronic systolic heart failure History of coronary artery disease with previous stent of the diagonal branch Hypertension Hyperlipidemia History of CVA Obstructive sleep apnea not using CPAP History of bilateral PE and DVT Chronic anemia Plan: Continue patient's home cardiac medications Continue Lasix 40 mg IV every 12 hours Monitor SUSANNA, daily weights, electrolytes and renal function Obtain 2-D echocardiogram and Doppler study to assess cardiac structure and function Further recommendations to follow based upon clinical course Thank you kindly for this consultation. Nurse practitioner note has been reviewed, I agree with documented findings and plan of care. Patient was seen and examined. Past Medical History Past Medical History: Asthma, Coronary Artery Disease (CAD), Chest Pain / Angina, Heart Failure, COPD, CVA/TIA, Deep Vein Thrombosis (DVT), Fibromyalgia, GERD/Reflux, GI Bleed, Hearing Disorder / Deafness, Hyperlipidemia, Hypertension, Memory Impairment, Myocardial Infarction (OK), Osteoarthritis (OA), Pneumonia, Pulmonary Embolus (PE), Respiratory Disorder, Seizure Disorder, Skin Disorder, Sleep Apnea/CPAP/BIPAP, Thyroid Disorder Additional Past Medical History / Comment(s): 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 Alex-en-Y gastric bypass for morbid obesity, has home o2 that was prescribed in 2019 but currently does not use Last Myocardial Infarction Date:: 2002 History of Any Multi-Drug Resistant Organisms: None Reported Past Surgical History: Bariatric Surgery, Hernia Repair, Hysterectomy, Joint Replacement, Orthopedic Surgery, Tubal Ligation Additional Past Surgical History / Comment(s): 10/19/19 PCI with stent, EGDs, colonoscopy/benign polyps, gastric bypass with revision, ventral and hiatal hernia repair, bladder suspension, R rotator curr repair/revision, L knee arthroscopy, rectocele, perinealplasty, 07/05/20 left shoulder replacement, 11/11/21 right shoulder replacement Past Anesthesia/Blood Transfusion Reactions: Motion Sickness Past Psychological History: Anxiety, Depression Smoking Status: Never smoker Past Alcohol Use History: Rare Past Drug Use History: None Reported - Past Family History Mother Family Medical History: Coronary Artery Disease (CAD), Eye Disorder Additional Family Medical History / Comment(s): Mother is 91 yrs old Father Family Medical History: Myocardial Infarction (OK) Additional Family Medical History / Comment(s): Father of a massive OK at the age of 53 yrs. Medications and Allergies Home Medications Medication Instructions Recorded Confirmed Type rOPINIRole HCL [Requip] 3 mg PO TID 11/09/17 04/26/23 History Apixaban [Eliquis] 5 mg PO BID 01/07/22 04/26/23 History Butalb/APAP/Caff 50-325-40Mg 1 tab PO BID PRN 07/08/22 04/26/23 History [Fioricet 50-325-40] Diclofenac Potassium [Cataflam] 50 mg PO BID 07/08/22 04/26/23 History Furosemide [Lasix] 40 mg PO DAILY PRN 07/08/22 04/26/23 History Ipratropium-Albuterol Nebulize 3 ml INHALATION RT-QID PRN 07/08/22 04/26/23 History [Duoneb 0.5 mg-3 mg/3 ml Soln] Ergocalciferol [Vitamin D2 (1250 1,250 mcg PO RALPH@2100 10/10/22 04/26/23 History Mcg = 12530 Iu)] HYDROcodone/APAP 10-325MG [Brunson 1 tab PO TID 10/10/22 04/26/23 History 10-325] Levothyroxine Sodium [Synthroid] 88 mcg PO DAILY 10/10/22 04/26/23 History Albuterol Inhaler [Ventolin Hfa 1 - 2 puff INHALATION RT-Q6H PRN 04/26/23 04/26/23 History Inhaler] FLUoxetine HCL 40 mg PO DAILY 04/26/23 04/26/23 History Fluconazole [Diflucan] 100 mg PO DAILY 04/26/23 04/26/23 History Fluticasone/Umeclidin/Vilanter 1 puff INHALATION RT-DAILY 04/26/23 04/26/23 History [Trelegy Ellipta 100-62.5-25] Pregabalin [Lyrica] 200 mg PO TID 04/26/23 04/26/23 History Topiramate [Topamax] 100 mg PO BID 04/26/23 04/26/23 History hydrOXYzine pamoate 100 mg PO HS 04/26/23 04/26/23 History metOLazone [Zaroxolyn] 5 mg PO DAILY 04/26/23 04/26/23 History tiZANidine [Zanaflex] 4 mg PO BID PRN 04/26/23 04/26/23 History Allergies Allergy/AdvReac Type Severity Reaction Status Date / Time cefprozil [From Cefzil] Allergy Unknown Verified 04/26/23 22:48 cyclobenzaprine Allergy Rash/Hives Verified 04/26/23 22:48 [From Flexeril] Sulfa (Sulfonamide Allergy Rash/Hives Verified 04/26/23 22:48 Antibiotics) valdecoxib [From Bextra] Allergy Unknown Verified 04/26/23 22:48 metaxalone [From Skelaxin] AdvReac Nausea & Verified 04/26/23 22:48 Vomiting Physical Exam Vitals: Vital Signs Temp Pulse Resp BP Pulse Ox 04/27/23 06:24 67 16 119/55 96 04/27/23 03:46 75 14 120/50 96 04/27/23 00:12 70 18 150/70 98 04/26/23 16:33 98.0 F 93 24 139/62 95 Intake and Output 04/26/23 04/27/23 04/27/23 22:59 06:59 14:59 Other: Weight 130.635 kg Results 04/26/23 17:09 04/26/23 17:09 Cardiac Enzymes 04/26/23 04/26/23 Range/Units 17:09 17:09 AST 35 (14-36) U/L Troponin I <0.012 (0.000-0.034) ng/mL Coagulation 04/26/23 Range/Units 17:09 PT 9.5 L (10.0-12.5) sec APTT 24.2 (22.0-30.0) sec CBC 04/26/23 Range/Units 17:09 WBC 7.6 (3.8-10.6) k/uL RBC 3.99 (3.80-5.40) m/uL Hgb 8.6 L (11.4-16.0) gm/dL Hct 28.5 L (34.0-46.0) % Plt Count 507 H (150-450) k/uL Comprehensive Metabolic Panel 04/26/23 Range/Units 17:09 Sodium 133 L (137-145) mmol/L Potassium 5.0 (3.5-5.1) mmol/L Chloride 101 (98-107) mmol/L Carbon Dioxide 26 (22-30) mmol/L BUN 18 H (7-17) mg/dL Creatinine 0.57 (0.52-1.04) mg/dL Glucose 93 (74-99) mg/dL Calcium 8.6 (8.4-10.2) mg/dL AST 35 (14-36) U/L ALT 23 (4-34) U/L Alkaline Phosphatase 110 (38-126) U/L Total Protein 6.7 (6.3-8.2) g/dL Albumin 3.7 (3.5-5.0) g/dL Current Medications Generic Name Dose Route Start Last Admin Trade Name Freq PRN Reason Stop Dose Admin Acetaminophen 650 mg 04/26/23 21:56 Acetaminophen Tab 325 Mg Tab PO Q6HR PRN Mild Pain or Fever > 100.5 Hydrocodone Bitart/Acetaminophen 1 each 04/26/23 22:17 04/27/23 05:29 Hydrocodone/Apap 10-325mg 1 Each Tab PO 1 each Q6HR PRN Administration Pain Amitriptyline HCl 100 mg 04/27/23 21:00 Amitriptyline Hcl 50 Mg Tab PO HS AMBIKA Apixaban 5 mg 04/27/23 09:00 Apixaban 5 Mg Tab PO BID AMBIKA Protocol Atorvastatin Calcium 20 mg 04/27/23 21:00 Atorvastatin 20 Mg Tab PO HS AMBIKA Famotidine 20 mg 04/27/23 09:00 Famotidine 20 Mg Tab PO DAILY AMBIKA Furosemide 40 mg 04/26/23 22:00 04/26/23 22:09 Furosemide 10 Mg/Ml 4 Ml Vial IV 40 mg Q12HR AMBIKA Administration Gabapentin 800 mg 04/27/23 09:00 Gabapentin 400 Mg Cap PO TID AMBIKA Levothyroxine Sodium 88 mcg 04/27/23 06:30 04/27/23 06:21 Levothyroxine 88 Mcg Tab PO 88 mcg DAILY@0630 AMBIKA Administration Naloxone HCl 0.2 mg 04/26/23 21:56 Naloxone 0.4 Mg/Ml 1 Ml Vial IV Q2M PRN Opioid Reversal Ropinirole HCl 6 mg 04/26/23 23:30 04/27/23 00:09 Ropinirole Hcl 1 Mg Tab PO 6 mg TID@0900,1500,2100 AMBIKA Administration Vortioxetine 20 mg 04/27/23 21:00 Vortioxetine Hydrobromide 20 Mg Tablet PO HS AMBIKA Intake and Output 04/26/23 04/27/23 04/27/23 22:59 06:59 14:59 Other: Weight 130.635 kg 04/26/23 17:09 04/26/23 17:09
[2023-04-27 11:06] LABS: African American GFR (CKD) >90 (>60 ml/min/1.73 sqM); Blood Urea Nitrogen 20 mg/dL (7-17); Calcium 8.8 mg/dL (8.4-10.2); Carbon Dioxide 28 mmol/L (22-30); Chloride 101 mmol/L (98-107); Glucose 112 mg/dL (74-99); Non-African American GFR(CKD) 89 (>60 ml/min/1.73 sqM)
[2023-04-27 11:11] LABS: Anion Gap 5 mmol/L; Potassium 4.5 mmol/L (3.5-5.1); Sodium 134 mmol/L (137-145)
[2023-04-27] MEDS: PREGABALIN 100 MG CAP PO SCH ×2 (17:18→20:02)
[2023-04-27] MEDS: AMITRIPTYLINE HCL 50 MG TAB PO SCH (19:58)
[2023-04-27] MEDS: VORTIOXETINE HYDROBROMIDE 20 MG TABLET PO SCH (20:01)
[2023-04-27] MEDS: ATORVASTATIN 20 MG TAB PO SCH (20:02)
[2023-04-28] MEDS: LEVOTHYROXINE 88 MCG TAB PO SCH (05:46)
[2023-04-28] MEDS: FUROSEMIDE 10 MG/ML 4 ML VIAL IV SCH ×2 (09:46→19:56)
[2023-04-28] MEDS: diphenhydrAMINE 25 MG CAP PO PRN (09:47)
[2023-04-28] MEDS: APIXABAN 5 MG TAB PO SCH ×2 (09:47→19:55)
[2023-04-28] MEDS: metOLazone 5 MG TAB PO SCH (09:47)
[2023-04-28] MEDS: PREGABALIN 100 MG CAP PO SCH ×3 (09:48→19:55)
--- NOTE | 2023-04-28 09:51 | CA ---
Transthoracic Echo Report Name: Marlin Veras Age: 68 Gender: F : 1955 Exam Date: 04/27/2023 11:59 Exam Location: [facility] Ht (in): 62 Wt (lb): 288 Ordering Physician: Sofia Skaggs Attending/Referring Phys: [id number], Sharifa Hand Bulldozer Scarlet Alford RDCS Procedure CPT: Indications: LVF Cardiac Hx: Technical Quality: Fair Contrast 1: Total Dose (mL): Contrast 2: Total Dose (mL): MEASUREMENTS (Male / Female) Normal Values 2D ECHO LV Diastolic Diameter PLAX 4.0 cm 4.2 - 5.9 / 3.9 - 5.3 cm LV Systolic Diameter PLAX 3.1 cm IVS Diastolic Thickness 1.2 cm 0.6 - 1.0 / 0.6 - 0.9 cm LVPW Diastolic Thickness 1.2 cm 0.6 - 1.0 / 0.6 - 0.9 cm LV Relative Wall Thickness 0.6 RV Internal Dim ED PLAX 3.6 cm LVOT Diameter 2.2 cm Aortic Root Diameter 2.4 cm LA Systolic Diameter LX 2.5 cm 3.0 - 4.0 / 2.7 - 3.8 cm LV Diastolic Volume MOD BP 103.7 cm??? 67 - 155 / 56 - 104 cm??? LV Systolic Volume MOD BP 48.6 cm??? 22 - 58 / 19 - 49 cm??? LV Ejection Fraction MOD BP 53.2 % >= 55 % LV Cardiac Index MOD BP 1579.5 cm???/min???m??? LV Diastolic Volume MOD 4C 95.6 cm??? LV Systolic Volume MOD 4C 48.0 cm??? LV Ejection Fraction MOD 4C 49.8 % LV Cardiac Index MOD 4C 1365.7 cm???/min???m??? LV Diastolic Length 4C 7.7 cm LV Systolic Length 4C 6.0 cm LV Diastolic Volume MOD 2C 104.1 cm??? LV Systolic Volume MOD 2C 42.5 cm??? LV Ejection Fraction MOD 2C 59.2 % LV Cardiac Index MOD 2C 1765.9 cm???/min???m??? LV Diastolic Length 2C 8.3 cm LV Systolic Length 2C 7.0 cm LA Volume 67.8 cm??? 18 - 58 / 22 - 52 cm??? LA Volume Index 27.4 cm???/m??? 16 - 28 cm???/m??? DOPPLER AV Peak Velocity 156.3 cm/s AV Peak Gradient 9.8 mmHg AV Mean Velocity 115.7 cm/s AV Mean Gradient 5.8 mmHg AV Velocity Time Integral 29.6 cm LVOT Peak Velocity 100.2 cm/s LVOT Peak Gradient 4.0 mmHg LVOT Velocity Time Integral 24.9 cm LVOT Stroke Volume 94.0 cm??? LVOT Stroke Volume Index 42.1 ml/m??? LVOT Cardiac Index 2694.1 cm???/min???m??? AV Area Cont Eq vti 3.2 cm??? AV Area Cont Eq pk 2.4 cm??? MV Peak Velocity 108.2 cm/s MV Peak Gradient 4.7 mmHg MV Mean Velocity 57.6 cm/s MV Mean Gradient 1.6 mmHg MV Velocity Time Integral 42.3 cm MR Peak Velocity 383.3 cm/s MR Peak Gradient 58.8 mmHg Mitral E Point Velocity 83.1 cm/s Mitral A Point Velocity 89.4 cm/s Mitral E to A Ratio 0.9 MV Deceleration Time 240.1 ms TR Peak Velocity 269.1 cm/s TR Peak Gradient 29.0 mmHg Right Ventricular Systolic Press 34.0 mmHg PV Peak Velocity 130.1 cm/s PV Peak Gradient 6.8 mmHg FINDINGS Left Ventricle Mildly impaired LV function. The EF is at 45% Right Ventricle Normal right ventricular size. RVSP= 34mmHg. Right Atrium Normal right atrial size. Left Atrium Moderately increased left atrial volume. LA volume index= 30ml/m2 Mitral Valve Structurally normal mitral valve. Mild MR.no mitral stenosis. Aortic Valve Trileaflet aortic valve. No aortic valve stenosis or regurgitation. Tricuspid Valve Structurally normal tricuspid valve. Mild TR. Pulmonic Valve Pulmonic valve not well visualized. No pulmonic regurgitation. Pericardium Normal pericardium. Aorta Normal size aortic wilner. CONCLUSIONS Mildly impaired already function. The EF is 45% Previewed by: Dr. Manuel Jacobson MD (Electronically Signed) Final Date: 28 April 2023 09:50
[2023-04-28] MEDS: HYDROcodone/APAP 10-325MG 1 EACH TAB PO PRN ×2 (09:55→16:34)
[2023-04-28 11:07] LABS: African American GFR (CKD) >90 (>60 ml/min/1.73 sqM); Anion Gap 9 mmol/L; Blood Urea Nitrogen 20 mg/dL (7-17); Carbon Dioxide 28 mmol/L (22-30); Chloride 95 mmol/L (98-107); Glucose 100 mg/dL (74-99); Non-African American GFR(CKD) >90 (>60 ml/min/1.73 sqM); Potassium 4.3 mmol/L (3.5-5.1); Sodium 132 mmol/L (137-145)
--- NOTE | 2023-04-28 11:07 | P.PN ---
Subjective Progress Note Date: 04/28/23 Consult reason: congestive heart failure History of present illness: History of present illness: This is a 68-year-old female patient of Dr. Haseeb Charles with past medical history of coronary artery disease, hypertension, hyperlipidemia, history of CVA, obstr uctive sleep apnea not able to tolerate device, bilateral PE and DVT, morbid obesity status post Alex-en-Y. We have been asked to evaluate the patient for CHF. Patient is seen today in the emergency center waiting for a bed on the observation unit. Patient gives history that she came in for shortness of breath with weight gain of 29 pounds over the past 4 weeks, chest pressure and increased lower extremity edema. Patient apparently was positive for COVID a few weeks ago. She states that she has been taking Lasix 40 mg and was recently instructed to increase this to 3 times daily over the past 3 days without improvement. EKG sinus rhythm with no acute ST changes Chest x-ray: Cardiomegaly with mild pulmonary vascular congestion. WBC 7.6, hemoglobin 8.6, platelet count 507. INR 0.8. Sodium 133, potassium 5, creatinine 0.57 BUN 18. Liver function tests are normal. Lactic acid 0.9. Troponin negative x 1. proBNP 737.. Home cardiac medications: Eliquis 5 mg twice daily, Lasix 40 mg daily as needed, metolazone 5 mg daily. Patient is also on levothyroxine 88 mcg daily. Echocardiogram performed 10/11/2022 revealed mild LV systolic dysfunction with EF of 40 to 45%, mild MR, mild TR. Cardiac catheterization 10/18/[address] KAMILAH Vick revealed diagonal 80 to 90% stenosis. End-diastolic pressure of 22 mmHg and without any gradient across aortic valve. Patient subsequently underwent PCI of diagonal branch with a drug-eluting stent. 04/28 Patient is seen today in follow-up on the observation unit. She continues to have shortness of breath and lower extremity edema. She has been maintained on Lasix 40 mg every 12 hours. It appears on the system that she has lost 10 kg and she has a negative fluid balance of 5250. Lung sounds are improved but patient continues to have lower extremity edema. Echocardiogram reveals mildly impaired LV function 45%. Mild MR, mild TR. Blood pressure 115/53, heart rate in the 70s. Telemetry is sinus rhythm. Repeat blood work has been ordered. Physical examination: Gen: This is a morbidly obese 68-year-old female. She appears to be in no acute distress VS: reviewed HEENT: Head is atraumatic, normocephalic. Pupils equal, round. Sclerae is anicteric. NECK: Supple. No JVD. LUNGS: Lungs are clear to auscultation. No intercostal retractions. HEART: Regular rate and rhythm. No murmur. ABDOMEN: Soft No tenderness. EXTREMITIES: 2+ pedal edema. No calf tenderness. NEUROLOGICAL: Patient is awake, alert and oriented x3. Assessment: Acute on chronic systolic heart failure History of coronary artery disease with previous stent of the diagonal branch Hypertension Hyperlipidemia History of CVA Obstructive sleep apnea not using CPAP History of bilateral PE and DVT Chronic anemia Plan: Continue patient's home cardiac medications Continue Lasix 40 mg IV every 12 hours Monitor SUSANNA, daily weights, electrolytes and renal function Further recommendations to follow based upon clinical course Nurse practitioner note has been reviewed, I agree with documented findings and plan of care. Patient was seen and examined. Objective - Vital Signs Vital signs: Vital Signs Temp 98.3 F 04/28/23 07:30 Pulse 78 04/28/23 07:30 Resp 18 04/28/23 07:30 BP 115/53 04/28/23 07:30 Pulse Ox 94 L 04/28/23 07:30 FiO2 Intake & Output 04/27/23 04/28/23 04/28/23 18:59 06:59 18:59 Output Total 2250 3000 Balance -2250 -3000 Weight 130.635 kg 120.1 kg Output: Urine 2250 3000 - Labs CBC & Chem 7: 04/26/23 17:09 04/27/23 10:41 Labs: Abnormal Lab Results - Last 24 Hours (Table) 04/27/23 Range/Units 10:41 Sodium 134 L (137-145) mmol/L BUN 20 H (7-17) mg/dL Glucose 112 H (74-99) mg/dL
[2023-04-28] MEDS: ONDANSETRON 4 MG/2 ML VIAL IVP PRN (14:30)
--- NOTE | 2023-04-28 15:38 | P.PN ---
Subjective Progress Note Date: 04/28/23 H&P Date: 04/27/23 Chief Complaint: Dyspnea This is a 68-year-old female with past medical history significant for coronary artery disease, CVA with right-sided weakness, PE/DVT, GI bleed, hypertension, hyperlipidemia, obstructive sleep apnea not on CPAP, hypothyroidism, morbid obesity with previous Alex-en-Y gastric bypass, tachycardia Subu syndrome, co ngestive heart failure, anxiety/depression and multiple other medical issues presented to the ER with worsening dyspnea, weight gain of 29 pounds over the last month accompanied by chest pressure and increased lower extremity edema. Patient reports she had COVID a couple weeks ago, followed up with PCP, placed on metolazone x 1 week in addition to her normal Lasix dose. Reported some improvement on the metolazone, but continued to have significant exertional shortness of breath, unable to get up her stairs, and came in to the ER. Reporting congested, stuffy nose with yellow nasal drainage. Denies chest pain, palpitations. Troponin negative x 1, EKG reported sinus rhythm, chest x-ray rep orted cardiomegaly with mild pulmonary vascular congestion. afebrile, normal WBC, hemoglobin 8.6, platelets 507, INR 0.8, sodium 133, potassium 5, bicarb 26, BUN 18, creatinine 0.57, glucose 93, lactic acid 0.9, LFTs within normal limits, proBNP 737. Echo from 10/11/2022 reported mild LV systolic dysfunction with EF of 40 to 45%. diuresing with IV push Lasix initiated in the ER and patient reports breathing easier now, nearly laying flat on stretcher. 04/28/2023 diuresing well on Lasix IV push with 24-hour I&O reflecting a negative fluid balance, down 10.5 kg. Maintaining O2 sats in the mid to high 90s on room air. Reports she still has significant shortness of breath as well as lower ext remity edema. Echo reported mildly impaired LV function, EF 45%. Denies chest pain, palpitations. Telemetry sinus rhythm. procalcitonin normal, 0.04. Afebrile. BMP pending. Objective - Vital Signs Vital signs: Vital Signs Temp 97.4 F L 04/28/23 14:43 Pulse 71 04/28/23 14:43 Resp 16 04/28/23 14:43 BP 146/83 04/28/23 14:43 Pulse Ox 98 04/28/23 14:43 FiO2 Intake & Output 04/27/23 04/28/23 04/28/23 18:59 06:59 18:59 Intake Total 236 Output Total 2250 3000 1000 Balance -2250 -3000 -764 Weight 130.635 kg 120.1 kg Intake: Oral 236 Output: Urine 2250 3000 1000 Other: # Voids 3 # Bowel Movements 1 - Exam PHYSICAL EXAM: VITAL SIGNS: [As above] GENERAL: Alert, pleasant, sitting up in bed, no acute distress HEENT: Normocephalic conjunctivae normal. eyes normal. NECK: Supple, no JVD. CARDIOVASCULAR: S1, S2 regular. No murmur RESPIRATION: Unlabored, equal air entry, bilateral bases diminished. ABDOMEN: Soft, nontender . No guarding. no masses palpable. Positive bowel sounds. LEGS: +2 pitting edema bilateral lower extremities. PSYCHIATRY: Alert and oriented X3, mood and affect normal. NERVOUS SYSTEM: Cranial N 2-12 grossly normal.No focal deficits. Strength and sensation grossly intact. Skin: Warm and dry, no rash - Labs CBC & Chem 7: 04/26/23 17:09 04/28/23 10:32 Labs: Abnormal Lab Results - Last 24 Hours (Table) 04/28/23 Range/Units 10:32 Sodium 132 L (137-145) mmol/L Chloride 95 L (98-107) mmol/L BUN 20 H (7-17) mg/dL Glucose 100 H (74-99) mg/dL Assessment and Plan Assessment: Acute on chronic CHF exacerbation, systolic dysfunction Recent COVID reports 2 weeks ago Obstructive sleep apnea not on CPAP therapy History of multiple PE,DVT, on Eliquis CAD, history of stent Hypertension Hyperlipidemia Hypothyroidism History of GI bleeding History of CVA/TIA with some residual right-sided weakness Peripheral neuropathy Chronic pain syndrome with nerve stimulator in back, unable to have MRI Fibromyalgia Morbid obesity,status post Alex-en-Y gastric bypass surgery 30 years ago,BMI 53 Hiatal hernia Raynolds syndrome Plan: Continue on current medication regimen, monitoring and symptomatic treatment. Diuretics as per cardiology, close monitoring of renal function with repeat labs ordered for a.m. strict I&O's. The impression and plan of care has been dictated as directed. : I performed a history and examination of this patient, discussed the same with the dictator. I agree with the dictator's note ,documented as a scribe. Any additional findings or plans will be noted.
[2023-04-28] MEDS: ATORVASTATIN 20 MG TAB PO SCH (19:55)
[2023-04-28] MEDS: AMITRIPTYLINE HCL 50 MG TAB PO SCH (20:51)
[2023-04-28] MEDS: VORTIOXETINE HYDROBROMIDE 20 MG TABLET PO SCH (20:51)
[2023-04-29] MEDS: diphenhydrAMINE 25 MG CAP PO PRN (00:35)
[2023-04-29] MEDS: HYDROcodone/APAP 10-325MG 1 EACH TAB PO PRN ×2 (00:35→08:11)
[2023-04-29] MEDS: LEVOTHYROXINE 88 MCG TAB PO SCH (05:48)
[2023-04-29 07:22] LABS: African American GFR (CKD) 86 (>60 ml/min/1.73 sqM); Anion Gap 5 mmol/L; Blood Urea Nitrogen 28 mg/dL (7-17); Calcium 8.1 mg/dL (8.4-10.2); Carbon Dioxide 33 mmol/L (22-30); Chloride 91 mmol/L (98-107); Glucose 96 mg/dL (74-99); Non-African American GFR(CKD) 75 (>60 ml/min/1.73 sqM); Sodium 129 mmol/L (137-145)
[2023-04-29] MEDS: FUROSEMIDE 10 MG/ML 4 ML VIAL IV SCH ×2 (08:10→19:55)
[2023-04-29] MEDS: APIXABAN 5 MG TAB PO SCH ×2 (08:10→19:55)
[2023-04-29] MEDS: PREGABALIN 100 MG CAP PO SCH ×3 (08:10→19:54)
[2023-04-29] MEDS: metOLazone 5 MG TAB PO SCH (08:11)
--- NOTE | 2023-04-29 11:11 | P.PN ---
Subjective Progress Note Date: 04/29/23 Consult reason: congestive heart failure History of present illness: History of present illness: This is a 68-year-old female patient of Dr. Haseeb Charles with past medical history of coronary artery disease, hypertension, hyperlipidemia, history of CVA, obstr uctive sleep apnea not able to tolerate device, bilateral PE and DVT, morbid obesity status post Alex-en-Y. We have been asked to evaluate the patient for CHF. Patient is seen today in the emergency center waiting for a bed on the observation unit. Patient gives history that she came in for shortness of breath with weight gain of 29 pounds over the past 4 weeks, chest pressure and increased lower extremity edema. Patient apparently was positive for COVID a few weeks ago. She states that she has been taking Lasix 40 mg and was recently instructed to increase this to 3 times daily over the past 3 days without improvement. EKG sinus rhythm with no acute ST changes Chest x-ray: Cardiomegaly with mild pulmonary vascular congestion. WBC 7.6, hemoglobin 8.6, platelet count 507. INR 0.8. Sodium 133, potassium 5, creatinine 0.57 BUN 18. Liver function tests are normal. Lactic acid 0.9. Troponin negative x 1. proBNP 737.. Home cardiac medications: Eliquis 5 mg twice daily, Lasix 40 mg daily as needed, metolazone 5 mg daily. Patient is also on levothyroxine 88 mcg daily. Echocardiogram performed 10/11/2022 revealed mild LV systolic dysfunction with EF of 40 to 45%, mild MR, mild TR. Cardiac catheterization 10/18/[address] KAMILAH Vick revealed diagonal 80 to 90% stenosis. End-diastolic pressure of 22 mmHg and without any gradient across aortic valve. Patient subsequently underwent PCI of diagonal branch with a drug-eluting stent. 04/28 Patient is seen today in follow-up on the observation unit. She continues to have shortness of breath and lower extremity edema. She has been maintained on Lasix 40 mg every 12 hours. It appears on the system that she has lost 10 kg and she has a negative fluid balance of 5250. Lung sounds are improved but patient continues to have lower extremity edema. Echocardiogram reveals mildly impaired LV function 45%. Mild MR, mild TR. Blood pressure 115/53, heart rate in the 70s. Telemetry is sinus rhythm. Repeat blood work has been ordered. 04/29 Patient has been continued on IV Lasix 40 mg every 12 hours. Repeat blood work reveals sodium 129, potassium 4, BUN 28 creatinine 0.81. Patient states that she is feeling well this morning but yesterday had some diarrhea and bouts of nausea which have resolved. Her lower extremity edema is improved and almost back to baseline. Blood pressure 111/75, heart rate in the 70s. Patient is in negative fluid balance of 1664. Physical examination: Gen: This is a morbidly obese 68-year-old female. She appears to be in no acute distress VS: reviewed HEENT: Head is atraumatic, normocephalic. Pupils equal, round. Sclerae is anicteric. LUNGS: Lungs are clear to auscultation. No intercostal retractions. HEART: Regular rate and rhythm. No murmur. ABDOMEN: Soft No tenderness. EXTREMITIES: 1+ pedal edema. No calf tenderness. NEUROLOGICAL: Patient is awake, alert and oriented x3. Assessment: Acute on chronic systolic heart failure History of coronary artery disease with previous stent of the diagonal branch Hypertension Hyperlipidemia History of CVA Obstructive sleep apnea not using CPAP History of bilateral PE and DVT Chronic anemia Plan: Continue patient's home cardiac medications Continue Lasix 40 mg IV every 12 hours for another 24 hours Monitor SUSANNA, daily weights, electrolytes and renal function Plan to transition IV Lasix to oral tomorrow Further recommendations to follow based upon clinical course Nurse practitioner note has been reviewed, I agree with documented findings and plan of care. Patient was seen and examined. Objective - Vital Signs Vital signs: Vital Signs Temp 97.3 F L 04/29/23 08:00 Pulse 71 04/29/23 08:00 Resp 16 04/29/23 08:00 BP 111/75 04/29/23 08:00 Pulse Ox 97 04/29/23 08:00 FiO2 Intake & Output 04/28/23 04/29/23 04/29/23 18:59 06:59 18:59 Intake Total 236 Output Total 4356 652 6546 Balance -764 -900 -1000 Weight 122.5 kg Intake: Oral 236 Output: Urine 2663 262 7989 Other: Voiding Method Bedside Commode # Voids 1 2 # Bowel Movements 1 1 - Labs CBC & Chem 7: 04/26/23 17:09 04/29/23 06:01 Labs: Abnormal Lab Results - Last 24 Hours (Table) 04/28/23 04/29/23 Range/Units 10:32 06:01 Sodium 132 L 129 L (137-145) mmol/L Chloride 95 L 91 L (98-107) mmol/L Carbon Dioxide 33 H (22-30) mmol/L BUN 20 H 28 H (7-17) mg/dL Glucose 100 H (74-99) mg/dL Calcium 8.1 L (8.4-10.2) mg/dL
--- NOTE | 2023-04-29 12:12 | P.PN ---
Subjective Progress Note Date: 04/29/23 This is a 68-year-old female with past medical history significant for coronary artery disease, CVA with right-sided weakness, PE/DVT, GI bleed, hypertension, hyperlipidemia, obstructive sleep apnea not on CPAP, hypothyroidism, morbid obesity with previous Alex-en-Y gastric bypass, tachycardia Subu syndrome, congestive heart failure, anxiety/depression and multiple other medical issues presented to the ER with worsening dyspnea, weight gain of 29 pounds over the last month accompanied by chest pressure and increased lower extremity edema. Patient reports she had COVID a couple weeks ago, followed up with PCP, placed on metolazone x 1 week in addition to her normal Lasix dose. Reported some improvement on the metolazone, but continued to have significant exertional shortness of breath, unable to get up her stairs, and came in to the ER. Reporting congested, stuffy nose with yellow nasal drainage. Denies chest pain, palpitations. Troponin negative x 1, EKG reported sinus rhythm, chest x-ray reported cardiomegaly with mild pulmonary vascular congestion. afebrile, normal WBC, hemoglobin 8.6, platelets 507, INR 0.8, sodium 133, potassium 5, bicarb 26, BUN 18, creatinine 0.57, glucose 93, lactic acid 0.9, LFTs within normal limits, proBNP 737. Echo from 10/11/2022 reported mild LV systolic dysfunction with EF of 40 to 45%. diuresing with IV push Lasix initiated in the ER and patient r eports breathing easier now, nearly laying flat on stretcher. 04/28/2023 diuresing well on Lasix IV push with 24-hour I&O reflecting a negative fluid balance, down 10.5 kg. Maintaining O2 sats in the mid to high 90s on room air. Reports she still has significant shortness of breath as well as lower extremity edema. Echo reported mildly impaired LV function, EF 45%. Denies chest pain, palpitations. Telemetry sinus rhythm. procalcitonin normal, 0.04. Afebrile. BMP pendin 04/29. Patient seen examined. States breathing is improved. Swelling of legs has also improved. Complaining of slight dizziness this morning REVIEW OF SYSTEMS: CONSTITUTIONAL: No fever, no malaise,. CARDIOVASCULAR: No chest pain, no palpitations, no syncope. PULMONARY: No shortness of breath, no cough, GASTROINTESTINAL: No diarrhea, no nausea, no vomiting, no abdominal pain. NEUROLOGICAL: No headaches, no weakness, PHYSICAL EXAMINATION: GENERAL: The patient is alert and oriented x3, not in any acute distress. Well developed, well nourished. HEENT: Pupils are round and equally reacting to light. EOMI. No scleral icterus. No conjunctival pallor. Normocephalic, atraumatic. No pharyngeal erythema. No thyromegaly. CARDIOVASCULAR: S1 and S2 present. No murmurs, rubs, or gallops. PULMONARY: Chest is clear to auscultation, no wheezing or crackles. ABDOMEN: Soft, nontender, nondistended, normoactive bowel sounds. No palpable organomegaly. MUSCULOSKELETAL: No joint swelling or deformity. EXTREMITIES: 1+ pitting edema lower extremities bilaterally NEUROLOGICAL: Gross neurological examination did not reveal any focal deficits. SKIN: No rashes. Assessment and plan Acute on chronic CHF exacerbation, systolic dysfunction Recent COVID reports 2 weeks ago Obstructive sleep apnea not on CPAP therapy History of multiple PE,DVT, on Eliquis CAD, history of stent Hypertension Hyperlipidemia Hypothyroidism History of GI bleeding History of CVA/TIA with some residual right-sided weakness Peripheral neuropathy Chronic pain syndrome with nerve stimulator in back, unable to have MRI Fibromyalgia Morbid obesity,status post Alex-en-Y gastric bypass surgery 30 years ago,BMI 53 Hiatal hernia Raynolds syndrome Monitor vital signs Monitor CBC Monitor CMP Continue telemetry monitoring Encourage use of incentive spirometer Strict I's and O's, daily weights and continue IV Lasix 40 mg twice daily Continue Eliquis Continue Synthroid Continue Lipitor Cardiology following Labs and medication were reviewed.. Continue same treatment. Continue with symptomatic treatment. Resume home medication. Monitor labs and vitals. DVT and GI prophylaxis. Further recommendations as per clinical course of the patient Dictation was produced using [employer] dictation software. please excuse any grammatical, word or spelling errors. Objective - Vital Signs Vital signs: Vital Signs Temp 97.3 F L 04/29/23 08:00 Pulse 71 04/29/23 08:00 Resp 16 04/29/23 08:00 BP 111/75 04/29/23 08:00 Pulse Ox 97 04/29/23 08:00 FiO2 Intake & Output 04/28/23 04/29/23 04/29/23 18:59 06:59 18:59 Intake Total 236 Output Total 2504 977 4182 Balance -535 -900 -1000 Weight 122.5 kg Intake: Oral 236 Output: Urine 3885 206 4199 Other: Voiding Method Bedside Commode # Voids 1 2 # Bowel Movements 1 1 - Labs CBC & Chem 7: 04/26/23 17:09 04/29/23 06:01 Labs: Abnormal Lab Results - Last 24 Hours (Table) 04/28/23 04/29/23 Range/Units 10:32 06:01 Sodium 132 L 129 L (137-145) mmol/L Chloride 95 L 91 L (98-107) mmol/L Carbon Dioxide 33 H (22-30) mmol/L BUN 20 H 28 H (7-17) mg/dL Glucose 100 H (74-99) mg/dL Calcium 8.1 L (8.4-10.2) mg/dL
[2023-04-29 17:20] LABS: Magnesium 1.8 mg/dL (1.6-2.3); Potassium 4.3 mmol/L (3.5-5.1)
[2023-04-29] MEDS: AMITRIPTYLINE HCL 50 MG TAB PO SCH (19:54)
[2023-04-29] MEDS: VORTIOXETINE HYDROBROMIDE 20 MG TABLET PO SCH (19:55)
[2023-04-29] MEDS: ATORVASTATIN 20 MG TAB PO SCH (19:55)
[2023-04-30] MEDS: HYDROcodone/APAP 10-325MG 1 EACH TAB PO PRN ×3 (02:00→20:59)
[2023-04-30] MEDS: diphenhydrAMINE 25 MG CAP PO PRN (02:00)
[2023-04-30] MEDS: LEVOTHYROXINE 88 MCG TAB PO SCH (05:52)
[2023-04-30] MEDS: metOLazone 5 MG TAB PO SCH (08:42)
[2023-04-30] MEDS: FUROSEMIDE 10 MG/ML 4 ML VIAL IV SCH (08:42)
[2023-04-30] MEDS: PREGABALIN 100 MG CAP PO SCH ×3 (08:43→20:41)
[2023-04-30] MEDS: APIXABAN 5 MG TAB PO SCH ×2 (08:43→20:41)
--- NOTE | 2023-04-30 10:29 | P.PN ---
Subjective Progress Note Date: 04/30/23 Consult reason: congestive heart failure History of present illness: History of present illness: This is a 68-year-old female patient of Dr. Haseeb Charles with past medical history of coronary artery disease, hypertension, hyperlipidemia, history of CVA, obstr uctive sleep apnea not able to tolerate device, bilateral PE and DVT, morbid obesity status post Alex-en-Y. We have been asked to evaluate the patient for CHF. Patient is seen today in the emergency center waiting for a bed on the observation unit. Patient gives history that she came in for shortness of breath with weight gain of 29 pounds over the past 4 weeks, chest pressure and increased lower extremity edema. Patient apparently was positive for COVID a few weeks ago. She states that she has been taking Lasix 40 mg and was recently instructed to increase this to 3 times daily over the past 3 days without improvement. EKG sinus rhythm with no acute ST changes Chest x-ray: Cardiomegaly with mild pulmonary vascular congestion. WBC 7.6, hemoglobin 8.6, platelet count 507. INR 0.8. Sodium 133, potassium 5, creatinine 0.57 BUN 18. Liver function tests are normal. Lactic acid 0.9. Troponin negative x 1. proBNP 737.. Home cardiac medications: Eliquis 5 mg twice daily, Lasix 40 mg daily as needed, metolazone 5 mg daily. Patient is also on levothyroxine 88 mcg daily. Echocardiogram performed 10/11/2022 revealed mild LV systolic dysfunction with EF of 40 to 45%, mild MR, mild TR. Cardiac catheterization 10/18/[address] KAMILAH Vick revealed diagonal 80 to 90% stenosis. End-diastolic pressure of 22 mmHg and without any gradient across aortic valve. Patient subsequently underwent PCI of diagonal branch with a drug-eluting stent. 04/28 Patient is seen today in follow-up on the observation unit. She continues to have shortness of breath and lower extremity edema. She has been maintained on Lasix 40 mg every 12 hours. It appears on the system that she has lost 10 kg and she has a negative fluid balance of 5250. Lung sounds are improved but patient continues to have lower extremity edema. Echocardiogram reveals mildly impaired LV function 45%. Mild MR, mild TR. Blood pressure 115/53, heart rate in the 70s. Telemetry is sinus rhythm. Repeat blood work has been ordered. 04/29 Patient has been continued on IV Lasix 40 mg every 12 hours. Repeat blood work reveals sodium 129, potassium 4, BUN 28 creatinine 0.81. Patient states that she is feeling well this morning but yesterday had some diarrhea and bouts of nausea which have resolved. Her lower extremity edema is improved and almost back to baseline. Blood pressure 111/75, heart rate in the 70s. Patient is in negative fluid balance of 1664. 04/30 Patient has been maintained on IV Lasix 40 mg every 12 hours. Blood pressure this morning 132/83, heart rate 61, pulse ox 100% on room air. Patient states her breathing seems to be better. She think she is able to go home today. Physical examination: Gen: This is a morbidly obese 68-year-old female. She appears to be in no acute distress VS: reviewed HEENT: Head is atraumatic, normocephalic. Pupils equal, round. Sclerae is a nicteric. LUNGS: Lungs are clear to auscultation. No intercostal retractions. HEART: Regular rate and rhythm. No murmur. ABDOMEN: Soft No tenderness. EXTREMITIES: minimal pedal edema. No calf tenderness. NEUROLOGICAL: Patient is awake, alert and oriented x3. Assessment: Acute on chronic systolic heart failure History of coronary artery disease with previous stent of the diagonal branch Hypertension Hyperlipidemia History of CVA Obstructive sleep apnea not using CPAP History of bilateral PE and DVT Chronic anemia Plan: Continue patient's home cardiac medications Transition IV Lasix to oral twice daily Monitor SUSANNA, daily weights, electrolytes and renal function Patient is cleared for discharge from cardiology and may follow-up with Dr. Charles in the office in 2 weeks. Nurse practitioner note has been reviewed, I agree with documented findings and plan of care. Patient was seen and examined. Objective - Vital Signs Vital signs: Vital Signs Temp 97.4 F L 04/30/23 07:58 Pulse 61 04/30/23 07:58 Resp 16 04/30/23 07:58 BP 132/83 04/30/23 07:58 Pulse Ox 100 04/30/23 07:58 FiO2 Intake & Output 04/29/23 04/30/23 04/30/23 18:59 06:59 18:59 Intake Total 838 684 Output Total 3900 2400 Balance -3062 -1716 Weight 117.3 kg Intake: Oral 838 684 Output: Urine 3900 2400 Other: Voiding Method Bedside Commode - Labs CBC & Chem 7: 04/26/23 17:09 04/29/23 16:34
[2023-04-30 11:55] LABS: Basophils % (A) 1 %; Eosinophils # (A) 0.3 k/uL (0-0.7); Eosinophils % (A) 3 %; HCT 32.2 % (34.0-46.0); HGB 9.4 gm/dL (11.4-16.0); Hypochromasia Marked; Lymphocytes # (A) 1.5 k/uL (1.0-4.8); Lymphocytes % (A) 19 %; MCH 20.9 pg (25.0-35.0); MCHC 29.2 g/dL (31.0-37.0); MCV 71.4 fL (80.0-100.0); Mean Platelet Volume 7.2; Microcytosis Moderate; Monocytes # (A) 0.6 k/uL (0-1.0); Monocytes % (A) 8 %; Neutrophils % (A) 66 %; Platelet Count 517 k/uL (150-450); RDW 15.8 % (11.5-15.5); WBC 7.6 k/uL (3.8-10.6)
--- NOTE | 2023-04-30 11:55 | P.PN ---
Subjective Progress Note Date: 04/30/23 This is a 68-year-old female with past medical history significant for coronary artery disease, CVA with right-sided weakness, PE/DVT, GI bleed, hypertension, hyperlipidemia, obstructive sleep apnea not on CPAP, hypothyroidism, morbid obesity with previous Alex-en-Y gastric bypass, tachycardia Subu syndrome, congestive heart failure, anxiety/depression and multiple other medical issues presented to the ER with worsening dyspnea, weight gain of 29 pounds over the last month accompanied by chest pressure and increased lower extremity edema. Patient reports she had COVID a couple weeks ago, followed up with PCP, placed on metolazone x 1 week in addition to her normal Lasix dose. Reported some improvement on the metolazone, but continued to have significant exertional shortness of breath, unable to get up her stairs, and came in to the ER. Reporting congested, stuffy nose with yellow nasal drainage. Denies chest pain, palpitations. Troponin negative x 1, EKG reported sinus rhythm, chest x-ray reported cardiomegaly with mild pulmonary vascular congestion. afebrile, normal WBC, hemoglobin 8.6, platelets 507, INR 0.8, sodium 133, potassium 5, bicarb 26, BUN 18, creatinine 0.57, glucose 93, lactic acid 0.9, LFTs within normal limits, proBNP 737. Echo from 10/11/2022 reported mild LV systolic dysfunction with EF of 40 to 45%. diuresing with IV push Lasix initiated in the ER and patient r eports breathing easier now, nearly laying flat on stretcher. 04/28/2023 diuresing well on Lasix IV push with 24-hour I&O reflecting a negative fluid balance, down 10.5 kg. Maintaining O2 sats in the mid to high 90s on room air. Reports she still has significant shortness of breath as well as lower extremity edema. Echo reported mildly impaired LV function, EF 45%. Denies chest pain, palpitations. Telemetry sinus rhythm. procalcitonin normal, 0.04. Afebrile. BMP pendin 04/29. Patient seen examined. States breathing is improved. Swelling of legs has also improved. Complaining of slight dizziness this morning 04/30. Patient seen and examined. Patient was little disoriented overnight, patient used to take amitriptyline at home which was discontinued. Currently she is alert and oriented. States shortness of breath is improved. Swelling of legs also improved REVIEW OF SYSTEMS: CONSTITUTIONAL: No fever, no malaise,. CARDIOVASCULAR: No chest pain, no palpitations, no syncope. PULMONARY: No shortness of breath, no cough, GASTROINTESTINAL: No diarrhea, no nausea, no vomiting, no abdominal pain. NEUROLOGICAL: No headaches, no weakness, PHYSICAL EXAMINATION: GENERAL: The patient is alert and oriented x3, not in any acute distress. Well developed, well nourished. HEENT: Pupils are round and equally reacting to light. EOMI. No scleral icterus. No conjunctival pallor. Normocephalic, atraumatic. No pharyngeal erythema. No thyromegaly. CARDIOVASCULAR: S1 and S2 present. No murmurs, rubs, or gallops. PULMONARY: Chest is clear to auscultation, no wheezing or crackles. ABDOMEN: Soft, nontender, nondistended, normoactive bowel sounds. No palpable organomegaly. MUSCULOSKELETAL: No joint swelling or deformity. EXTREMITIES: 1+ pitting edema lower extremities bilaterally NEUROLOGICAL: Gross neurological examination did not reveal any focal deficits. SKIN: No rashes. Assessment and plan Acute on chronic CHF exacerbation, systolic dysfunction Recent COVID reports 2 weeks ago Obstructive sleep apnea not on CPAP therapy History of multiple PE,DVT, on Eliquis CAD, history of stent Hypertension Hyperlipidemia Hypothyroidism History of GI bleeding History of CVA/TIA with some residual right-sided weakness Peripheral neuropathy Chronic pain syndrome with nerve stimulator in back, unable to have MRI Fibromyalgia Morbid obesity,status post Alex-en-Y gastric bypass surgery 30 years ago,BMI 53 Hiatal hernia Raynolds syndrome Monitor vital signs Monitor CBC Monitor CMP Continue telemetry monitoring Encourage use of incentive spirometer Strict I's and O's, daily weights and continue IV Lasix 40 mg twice daily Continue Eliquis Continue Synthroid Continue Lipitor DC amitriptyline Cardiology following Labs and medication were reviewed.. Continue same treatment. Continue with symptomatic treatment. Resume home medication. Monitor labs and vitals. DVT and GI prophylaxis. Further recommendations as per clinical course of the patient Dictation was produced using [employer] dictation software. please excuse any grammatical, word or spelling errors. Objective - Vital Signs Vital signs: Vital Signs Temp 97.4 F L 04/30/23 07:58 Pulse 61 04/30/23 07:58 Resp 16 04/30/23 07:58 BP 132/83 04/30/23 07:58 Pulse Ox 100 04/30/23 07:58 FiO2 Intake & Output 04/29/23 04/30/23 04/30/23 18:59 06:59 18:59 Intake Total 838 684 Output Total 3900 2400 Balance -5142 -1941 Weight 117.3 kg Intake: Oral 838 684 Output: Urine 3900 2400 Other: Voiding Method Bedside Commode - Labs CBC & Chem 7: 04/26/23 17:09 04/29/23 16:34
[2023-04-30] MEDS: FUROSEMIDE 40 MG TAB PO SCH (15:03)
[2023-04-30] MEDS: VORTIOXETINE HYDROBROMIDE 20 MG TABLET PO SCH (20:42)
[2023-04-30] MEDS: ATORVASTATIN 20 MG TAB PO SCH (20:42)
[2023-05-01] MEDS: diphenhydrAMINE 25 MG CAP PO PRN (04:27)
[2023-05-01] MEDS: HYDROcodone/APAP 10-325MG 1 EACH TAB PO PRN (06:22)
[2023-05-01] MEDS: LEVOTHYROXINE 88 MCG TAB PO SCH (06:22)
[2023-05-01] MEDS: APIXABAN 5 MG TAB PO SCH (10:09)
[2023-05-01] MEDS: metOLazone 5 MG TAB PO SCH (10:10)
[2023-05-01] MEDS: PREGABALIN 100 MG CAP PO SCH ×2 (10:10→16:44)
[2023-05-01] MEDS: FUROSEMIDE 40 MG TAB PO SCH ×2 (10:10→16:44)
[2023-05-01] MEDS: ONDANSETRON 4 MG/2 ML VIAL IVP PRN ×2 (11:32→17:03)
[2023-05-01] MEDS ORDERED: PROMETHAZINE 25 MG TAB PO ONE (12:57)
--- NOTE | 2023-05-01 13:49 | P.DS ---
Providers Date of admission: 04/28/23 09:48 Expected date of discharge: 05/01/23 Attending physician: Edd Lee MD Primary care physician: Edd Lee MD Hospital Course: Final diagnoses Acute on chronic CHF exacerbation, systolic dysfunction Recent COVID reports 2 weeks ago Obstructive sleep apnea not on CPAP therapy History of multiple PE,DVT, on Eliquis CAD, history of stent Hypertension Hyperlipidemia Hypothyroidism History of GI bleeding History of CVA/TIA with some residual right-sided weakness Peripheral neuropathy Chronic pain syndrome with nerve stimulator in back, unable to have MRI Fibromyalgia Morbid obesity,status post Alex-en-Y gastric bypass surgery 30 years ago,BMI 53 Hiatal hernia Raynolds syndrome Hospital course:This is a 68-year-old female with past medical history significant for coronary artery disease, CVA with right-sided weakness, PE/DVT, GI bleed, hypertension, hyperlipidemia, obstructive sleep apnea not on CPAP, hypothyroidism, morbid obesity with previous Alex-en-Y gastric bypass, tachycardia Subu syndrome, congestive heart failure, anxiety/depression and multiple other medical issues presented to the ER with worsening dyspnea, weight gain of 29 pounds over the last month accompanied by chest pressure and increased lower extremity edema. Patient reports she had COVID a couple weeks ago, followed up with PCP, placed on metolazone x 1 week in addition to her normal Lasix dose. Reported some improvement on the metolazone, but continued to have significant exertional shortness of breath, unable to get up her stairs, and came in to the ER. Reporting congested, stuffy nose with yellow nasal drainage. Denies chest pain, palpitations. Troponin negative x 1, EKG reported sinus rhythm, chest x-ray reported cardiomegaly with mild pulmonary vascular congestion. afebrile, normal WBC, hemoglobin 8.6, platelets 507, INR 0.8, sodium 133, potassium 5, bicarb 26, BUN 18, creatinine 0.57, glucose 93, lactic acid 0.9, LFTs within normal limits, proBNP 737. Echo from 10/11/2022 reported mild LV systolic dysfunction with EF of 40 to 45%. diuresing with IV push Lasix initiated in the ER and patient reports breathing easier now, nearly laying flat on stretcher. 04/28/2023 diuresing well on Lasix IV push with 24-hour I&O reflecting a negative fluid balance, down 10.5 kg. Maintaining O2 sats in the mid to high 90s on room air. Reports she still has significant shortness of breath as well as lower extremity edema. Echo reported mildly impaired LV function, EF 45%. Denies chest pain, palpitations. Telemetry sinus rhythm. procalcitonin normal, 0.04. Afebrile. BMP pending. Evaluated and treated by cardiology. Diuresed well on Lasix IV push. Transitioned to oral Lasix. Denies chest pain, palpitations or shortness of breath. Denies lightheadedness, dizziness or focal deficits. Cleared by cardiology for discharge. Evaluated by PT, recommending subacute rehab. Patient will be discharged to subacute rehab today in a stable condition with guarded prognosis. The impression and plan of care has been dictated as directed. : I performed a history and examination of this patient, discussed the same with the dictator. I agree with the dictator's note ,documented as a scribe. Any additional findings or plans will be noted. Patient Condition at Discharge: Stable Plan - Discharge Summary New Discharge Prescriptions: New Furosemide [Lasix] 40 mg PO BID@0900,1600 #60 tab Continue rOPINIRole HCL [Requip] 3 mg PO TID Apixaban [Eliquis] 5 mg PO BID Fluticasone/Umeclidin/Vilanter [Trelegy Ellipta 100-62.5-25] 1 puff INHALATION RT-DAILY hydrOXYzine pamoate [Vistaril] 100 mg PO HS tiZANidine [Zanaflex] 4 mg PO BID PRN PRN Reason: Muscle Pain Topiramate [Topamax] 100 mg PO BID Butalb/APAP/Caff 50-325-40Mg [Fioricet 50-325-40] 1 tab PO BID PRN #6 tab PRN Reason: Migraine Headache HYDROcodone/APAP 10-325MG [[place] 10-325] 1 tab PO TID #9 tab Diclofenac Potassium [Cataflam] 50 mg PO BID Ipratropium-Albuterol Nebulize [Duoneb 0.5 mg-3 mg/3 ml Soln] 3 ml INHALATION RT-QID PRN PRN Reason: Shortness Of Breath Levothyroxine Sodium [Synthroid] 88 mcg PO DAILY Ergocalciferol [Vitamin D2 (1250 Mcg = 60675 Iu)] 1,250 mcg PO RALPH@2100 Albuterol Inhaler [Ventolin Hfa Inhaler] 1 - 2 puff INHALATION RT-Q6H PRN PRN Reason: Shortness Of Breath Fluconazole [Diflucan] 100 mg PO DAILY FLUoxetine HCL 40 mg PO DAILY metOLazone [Zaroxolyn] 5 mg PO DAILY Pregabalin [Lyrica] 200 mg PO TID #9 cap Discontinued Furosemide [Lasix] 40 mg PO DAILY PRN PRN Reason: Edema Discharge Medication List rOPINIRole HCL [Requip] 3 mg PO TID 11/09/17 [History] Apixaban [Eliquis] 5 mg PO BID 01/07/22 [History] Diclofenac Potassium [Cataflam] 50 mg PO BID 07/08/22 [History] Ipratropium-Albuterol Nebulize [Duoneb 0.5 mg-3 mg/3 ml Soln] 3 ml INHALATION RT-QID PRN 07/08/22 [History] Ergocalciferol [Vitamin D2 (1250 Mcg = 31728 Iu)] 1,250 mcg PO RALPH@2100 10/10/22 [History] Levothyroxine Sodium [Synthroid] 88 mcg PO DAILY 10/10/22 [History] Albuterol Inhaler [Ventolin Hfa Inhaler] 1 - 2 puff INHALATION RT-Q6H PRN 04/26/23 [History] FLUoxetine HCL 40 mg PO DAILY 04/26/23 [History] Fluconazole [Diflucan] 100 mg PO DAILY 04/26/23 [History] Fluticasone/Umeclidin/Vilanter [Trelegy Ellipta 100-62.5-25] 1 puff INHALATION RT-DAILY 04/26/23 [History] Topiramate [Topamax] 100 mg PO BID 04/26/23 [History] hydrOXYzine pamoate [Vistaril] 100 mg PO HS 04/26/23 [History] metOLazone [Zaroxolyn] 5 mg PO DAILY 04/26/23 [History] tiZANidine [Zanaflex] 4 mg PO BID PRN 04/26/23 [History] Butalb/APAP/Caff 50-325-40Mg [Fioricet 50-325-40] 1 tab PO BID PRN #6 tab 05/01/23 [Rx] Furosemide [Lasix] 40 mg PO BID@0900,1600 #60 tab 05/01/23 [Rx] HYDROcodone/APAP 10-325MG [[place] 10-325] 1 tab PO TID #9 tab 05/01/23 [Rx] Pregabalin [Lyrica] 200 mg PO TID #9 cap 05/01/23 [Rx] Follow up Appointment(s)/Referral(s): Edd Lee MD [Primary Care Provider] - 1-2 days Jairo Charles MD [STAFF PHYSICIAN] - 2 Weeks Activity/Diet/Wound Care/Special Instructions: ROOPA: CBC, BMP in 3 days Discharge Disposition: TRANSFER TO SNF/ECF
[2023-05-01 15:45] VITALS: BP 136/77; PULSE 62; RESP 18; TEMP 97.8
== END 2023-05-01 17:38 | DRG 291 ==
LOC: EC 16:29 → 5NMEDONC 21:58 → 6NMEDSUR 04-27 06:02 → OBSVTOIN 04-28 09:48
PROVIDERS: ADMIT Family Medicine; ATTEND Family Medicine
DX: I11.0 Hypertensive heart disease with heart failure (principal); I50.23 Acute on chronic systolic (congestive) heart failure; Z68.42 Body mass index [BMI] 45.0-49.9, adult; I69.351 Hemiplegia and hemiparesis following cerebral infarction affecting right dominant side; I27.20 Pulmonary hypertension, unspecified; Z79.01 Long term (current) use of anticoagulants; E03.9 Hypothyroidism, unspecified; E66.01 Morbid (severe) obesity due to excess calories; D64.9 Anemia, unspecified; F32.A Depression, unspecified; G40.909 Epilepsy, unspecified, not intractable, without status epilepticus; J44.9 Chronic obstructive pulmonary disease, unspecified; G47.33 Obstructive sleep apnea (adult) (pediatric); I25.10 Atherosclerotic heart disease of native coronary artery without angina pectoris; Z95.5 Presence of coronary angioplasty implant and graft; E78.5 Hyperlipidemia, unspecified; G62.9 Polyneuropathy, unspecified; G89.4 Chronic pain syndrome; M79.7 Fibromyalgia; K44.9 Diaphragmatic hernia without obstruction or gangrene; I08.1 Rheumatic disorders of both mitral and tricuspid valves; I73.00 Raynaud's syndrome without gangrene; G25.81 Restless legs syndrome; M54.81 Occipital neuralgia; R29.6 Repeated falls; F41.9 Anxiety disorder, unspecified; H91.90 Unspecified hearing loss, unspecified ear; I25.2 Old myocardial infarction; Z86.16 Personal history of COVID-19; Z86.711 Personal history of pulmonary embolism; Z90.710 Acquired absence of both cervix and uterus; Z96.611 Presence of right artificial shoulder joint; Z96.612 Presence of left artificial shoulder joint; Z79.899 Other long term (current) drug therapy; Z79.890 Hormone replacement therapy; Z82.49 Family history of ischemic heart disease and other diseases of the circulatory system; Z98.84 Bariatric surgery status; Z88.2 Allergy status to sulfonamides; Z88.8 Allergy status to other drugs, medicaments and biological substances; Z91.81 History of falling; Z87.19 Personal history of other diseases of the digestive system
CPT/HCPCS: 36415; 71046; 80048; 80053; 83605; 83735; 83880; 84132; 84145; 84484; 85025; 85610; 85730; 93005; 93306; 96374; 96376; 99285

== ENCOUNTER 2023-05-03 11:40 | Inpatient (IN) | payer MEDICARE ==
[2023-05-03 13:09] LABS: Appearance,Urine Clear (Clear); Bilirubin,Urine Negative (Negative); Blood,Urine Negative (Negative); Color,Urine Light Yellow; Glucose,Urine (UA) Negative (Negative); Ketones,Urine Negative (Negative); Leukocyte Esterase,Urine Negative (Negative); Nitrite,Urine Negative (Negative); Protein,Urine Negative (Negative); Specific Gravity,Urine 1.009 (1.001-1.035); Urobilinogen,Urine <2.0 mg/dL (<2.0)
--- NOTE | 2023-05-03 13:19 | CT ---
EXAMINATION TYPE: CT brain wo con DATE OF EXAM: 05/03/2023 COMPARISON: 10/10/2022 INDICATION: ams/ shakes DLP: 1195.5 mGycm, Automated exposure control for dose reduction was used. CONTRAST: None CT of the brain is performed utilizing 3 mm thick sections through the posterior fossa and 3 mm thick sections through the remaining calvarium. Study is performed within 24 hours of arrival to the hosp [facility]. No abnormal hyperdensity is present to suggest an acute intracranial hemorrhage. No mass lesion is evident. No acute infarcts are evident. Small lacunar infarct or Virchow-Myron spaces in the left basal gangli on. This was present previously Ventricles and sulci are appropriate for the patient age. Paranasal sinuses and mastoid air cells within the [id number] are clear. IMPRESSION: 1. No acute intracranial process. Follow-up MRI can be performed as clinically indicated. 2. Small stable lacunar infarct or Virchow-Myron's space left basal ganglion.
--- NOTE | 2023-05-03 13:32 | XR ---
EXAMINATION TYPE: XR chest 2V DATE OF EXAM: 05/03/2023 COMPARISON: 04/26/2023 INDICATION: Altered mental status TECHNIQUE: Single frontal view of the chest is obtained. FINDINGS: The heart size is mildly prominent. The pulmonary vasculature is normal. Previous pulmonary vascular prominence and perihilar prominence. Resolved. The lungs are clear. IMPRESSION: 1. No acute pulmonary process. 2. Resolution previous pulmonary prominence
[2023-05-03 13:57] LABS: ABG Base Excess 8.3 mmol/L; ABG HCO3 32 mmol/L (21-25); ABG Oxygen Saturation 97.7 % (94-97); ABG PCO2 40 mmHg (35-45); ABG PO2 150 mmHg (83-108); ABG TCO2 33 mmol/L (19-24); Allen Test Performed? Yes
[2023-05-03 14:23] LABS: ALT 48 U/L (4-34); AST 72 U/L (14-36); Albumin 4.4 g/dL (3.5-5.0); Alkaline Phosphatase 144 U/L (38-126); Anion Gap 17 mmol/L; Blood Urea Nitrogen 67 mg/dL (7-17); Calcium 8.6 mg/dL (8.4-10.2); Carbon Dioxide 28 mmol/L (22-30); Glucose 108 mg/dL (74-99); Potassium 3.6 mmol/L (3.5-5.1); Total Bilirubin 0.8 mg/dL (0.2-1.3); Total Protein 7.2 g/dL (6.3-8.2)
--- NOTE | 2023-05-03 14:25 | ED ---
General Adult HPI - General Chief complaint: Altered Mental Status Stated complaint: AMS and Elevated BP Time Seen by Provider: 05/03/23 12:10 Source: EMS Mode of arrival: EMS Limitations: altered mental status - History of Present Illness Initial comments: 68-year-old female presents emergency department as a transfer from [facility]. Transfer sheet states that the patient was confused with low blood pressure. Patient arrives and is able to provide a history. She is alert and oriented. She reports that she is short of breath. Patient was recently here for CHF exacerbation. Blood pressure and pulse ox are normal upon hospital arrival. She admits to restlessness in her lower extremities. Denies any pain. No reported fevers. Patient has had minimal urine output. - Related Data Home Medications Medication Instructions Recorded Confirmed rOPINIRole HCL [Requip] 6 mg PO TID 11/09/17 05/03/23 Apixaban [Eliquis] 5 mg PO BID 01/07/22 05/03/23 Ipratropium-Albuterol Nebulize 3 ml INHALATION RT-QID PRN 07/08/22 05/03/23 [Duoneb 0.5 mg-3 mg/3 ml Soln] Ergocalciferol [Vitamin D2 (1250 1,250 mcg PO RALPH@2100 10/10/22 05/03/23 Mcg = [id number] Iu)] Levothyroxine Sodium [Synthroid] 88 mcg PO DAILY 10/10/22 05/03/23 Albuterol Inhaler [Ventolin Hfa 1 - 2 puff INHALATION RT-Q6H PRN 04/26/23 05/03/23 Inhaler] Fluticasone/Umeclidin/Vilanter 1 puff INHALATION RT-DAILY 04/26/23 05/03/23 [Trelegy Ellipta 100-62.5-25] Topiramate [Topamax] 100 mg PO BID 04/26/23 05/03/23 hydrOXYzine pamoate [Vistaril] 100 mg PO HS 04/26/23 05/03/23 tiZANidine [Zanaflex] 4 mg PO BID 04/26/23 05/03/23 Previous Rx's Medication Instructions Recorded Docusate [Colace] 100 mg PO BID cap 05/09/23 Gabapentin [Neurontin] 200 mg PO TID #18 cap 05/09/23 HYDROcodone/APAP 10-325MG [[place] 1 tab PO TID #9 tab 05/09/23 10-325] Nystatin 100,000 Unit/gm Powd 1 applic TOPICAL BID each 05/09/23 [Mycostatin Powder] diphenhydrAMINE & Zinc Cream 1 applic TOPICAL BID each 05/09/23 [Benadryl Cream] hydrOXYzine pamoate [Vistaril] 25 mg PO DAILY PRN cap 05/09/23 FLUoxetine HCL [PROzac] 60 mg PO DAILY cap 05/10/23 Propranolol [Inderal] 10 mg PO TID PRN tab 05/10/23 traZODone HCL [Desyrel] 50 mg PO HS tab 05/10/23 Allergies Allergy/AdvReac Type Severity Reaction Status Date / Time adhesive tape Allergy Swelling Verified 05/03/23 14:18 cefprozil [From Cefzil] Allergy Unknown Verified 05/03/23 14:18 cyclobenzaprine Allergy Rash/Hives Verified 05/03/23 14:18 [From Flexeril] Sulfa (Sulfonamide Allergy Rash/Hives Verified 05/03/23 14:18 Antibiotics) valdecoxib [From Bextra] Allergy Unknown Verified 05/03/23 14:18 metaxalone [From Skelaxin] AdvReac Nausea & Verified 05/03/23 14:18 Vomiting Review of Systems ROS Statement: Those systems with pertinent positive or pertinent negative responses have been documented in the HPI. ROS Other: All systems not noted in ROS Statement are negative. 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 Alex-en-Y gastric bypass for morbid obesity, has home o2 that was prescribed in 2020 but currently does not use Last Myocardial Infarction Date:: 2002 History of Any Multi-Drug Resistant Organisms: None Reported Past Surgical History: Bariatric Surgery, Hernia Repair, Hysterectomy, Joint Replacement, Orthopedic Surgery, Tubal Ligation Additional Past Surgical History / Comment(s): 10/19/19 PCI with stent, EGDs, colonoscopy/benign polyps, gastric bypass with revision, ventral and hiatal hernia repair, bladder suspension, R rotator curr repair/revision, L knee arthroscopy, rectocele, perinealplasty, 07/05/20 left shoulder replacement, 11/11/21 right shoulder replacement Past Anesthesia/Blood Transfusion Reactions: Motion Sickness Past Psychological History: Anxiety, Depression Smoking Status: Never smoker Past Alcohol Use History: Rare Past Drug Use History: None Reported - Past Family History Mother Family Medical History: Coronary Artery Disease (CAD), Eye Disorder Additional Family Medical History / Comment(s): Mother is 91 yrs old Father Family Medical History: Myocardial Infarction (NC) Additional Family Medical History / Comment(s): Father of a massive NC at the age of 53 yrs. General Exam General appearance: obese, other (anxious and restless) Head exam: Present: atraumatic, normocephalic, normal inspection ENT exam: Present: mucous membranes dry Neck exam: Present: normal inspection. Absent: tenderness, meningismus, lymphadenopathy Respiratory exam: Present: normal lung sounds bilaterally. Absent: respiratory distress, wheezes, rales, rhonchi, stridor Cardiovascular Exam: Present: regular rate, normal rhythm, normal heart sounds. Absent: systolic murmur, diastolic murmur, rubs, gallop, clicks GI/Abdominal exam: Present: soft, normal bowel sounds. Absent: distended, tenderness, guarding, rebound, rigid Extremities exam: Present: other (restless) Neurological exam: Present: alert, oriented X3 Psychiatric exam: Present: anxious Skin exam: Present: warm, dry, intact, normal color. Absent: rash Course Vital Signs 01/05/03/23 05/03/23 11:44 16:46 20:54 Temperature 96.3 F L Pulse Rate 75 64 81 Respiratory 18 18 20 Rate Blood Pressure 127/73 118/70 82/43 O2 Sat by Pulse 98 97 Oximetry 05/03/23 05/03/23 05/04/23 22:16 23:16 00:00 Temperature 97.6 F Pulse Rate 94 80 72 Respiratory 19 20 24 Rate Blood Pressure 113/59 93/65 89/69 O2 Sat by Pulse 99 95 97 Oximetry 05/04/23 05/04/23 05/04/23 01:00 02:19 03:00 Temperature Pulse Rate 64 58 L 52 L Respiratory 24 20 18 Rate Blood Pressure 102/64 90/68 88/51 O2 Sat by Pulse 97 98 98 Oximetry 05/04/23 05/04/23 05/04/23 04:00 05:00 06:24 Temperature 97.6 F Pulse Rate 61 62 63 Respiratory 19 20 24 Rate Blood Pressure 112/93 99/68 O2 Sat by Pulse 97 97 95 Oximetry 05/04/23 05/04/23 05/04/23 07:30 08:00 08:30 Temperature Pulse Rate 58 L 68 56 L Respiratory 18 18 18 Rate Blood Pressure 99/68 98/64 100/66 O2 Sat by Pulse Oximetry 05/04/23 05/04/23 05/04/23 09:00 09:30 10:00 Temperature Pulse Rate 55 L 63 54 L Respiratory 16 16 19 Rate Blood Pressure 97/62 97/64 99/65 O2 Sat by Pulse Oximetry 05/04/23 05/04/23 05/04/23 10:05 10:30 11:00 Temperature Pulse Rate 52 L 52 L 49 L Respiratory 18 18 16 Rate Blood Pressure 97/82 97/82 110/71 O2 Sat by Pulse 95 98 100 Oximetry 05/04/23 05/04/23 05/04/23 11:30 12:00 12:30 Temperature Pulse Rate 49 L 49 L 47 L Respiratory 16 18 19 Rate Blood Pressure 110/71 86/52 O2 Sat by Pulse 98 96 100 Oximetry 05/04/23 05/04/23 05/04/23 13:00 13:30 13:50 Temperature Pulse Rate 48 L 55 L 54 L Respiratory 19 23 18 Rate Blood Pressure 88/50 86/52 98/50 O2 Sat by Pulse 96 Oximetry 05/04/23 05/04/23 05/04/23 14:00 14:30 15:00 Temperature Pulse Rate 53 L 54 L 52 L Respiratory 9 L 18 16 Rate Blood Pressure 98/50 101/66 O2 Sat by Pulse Oximetry 05/04/23 05/04/23 05/04/23 15:30 16:00 16:30 Temperature Pulse Rate 54 L 53 L 52 L Respiratory 19 16 18 Rate Blood Pressure 104/66 100/62 O2 Sat by Pulse Oximetry 05/04/23 05/04/23 05/04/23 17:00 20:38 22:09 Temperature Pulse Rate 62 62 58 L Respiratory 16 18 16 Rate Blood Pressure 124/60 91/74 120/83 O2 Sat by Pulse 96 96 Oximetry 05/05/23 05/05/23 05/05/23 00:05 02:55 04:00 Temperature Pulse Rate 57 L 54 L 55 L Respiratory 18 18 16 Rate Blood Pressure 103/91 101/81 117/92 O2 Sat by Pulse 95 95 Oximetry 05/05/23 05/05/23 05/05/23 06:48 08:00 08:10 Temperature 97.9 F Pulse Rate 67 80 80 Respiratory 18 14 16 Rate Blood Pressure 101/84 90/62 O2 Sat by Pulse 99 98 Oximetry 05/05/23 12:00 Temperature Pulse Rate 61 Respiratory 16 Rate Blood Pressure 100/64 O2 Sat by Pulse 97 Oximetry - Reevaluation(s) Reevaluation #1: 05/03/23 16:[address] Alcantara who states that the patient can go to 3 S. Procedures - ABG Interpretation Ph: 7.5 PCO2: 40 PO2: 150 Bicarbonate: 31 Interpretation: respiratory alkalosis Medical Decision Making - Medical Decision Making Was pt. sent in by a medical professional or institution (, PA, BAR MANAGER, urgent care, hospital, or halfway...) When possible be specific @ -Extended-care facility Did you speak to anyone other than the patient for history (EMS, parent, family, police, friend...)? What history was obtained from this source @ -EMS Did you review nursing and triage notes (agree or disagree)? Why? @ -I reviewed and agree with nursing and triage notes Were old charts reviewed (outside hosp., previous admission, EMS record, old EKG, old radiological studies, urgent care reports/EKG's, halfway records)? Report findings @ -I reviewed patient's packet from her extended care facility Differential Diagnosis (chest pain, altered mental status, abdominal pain women, abdominal pain men, vaginal bleeding, weakness, fever, dyspnea, syncope, headache, dizziness, GI bleed, back pain, seizure, CVA, palpatations, mental health, musculoskeletal)? @ -Differential Altered Mental Status: Hypoglycemia, DKA, hypercapnia, ETOH, overdose, CO poisoning, trauma, myxedema coma, HTN encephalopathy, infection, encephalitis, psychosis, intercranial hemorrhage, hepatic encephalopathy, meningitis, CVA, this is not meant to be an all-inclusive list EKG interpreted by me (3pts min.). @ -Yes and demonstrates sinus rhythm with a rate of 74. QRS 89. QTc of 426. Significant baseline artifact X-rays interpreted by me (1pt min.). @ -Yes and demonstrates no acute process CT interpreted by me (1pt min.). @ -Yes and demonstrates no acute process U/S interpreted by me (1pt. min.). @ -None done What testing was considered but not performed or refused? (CT, X-rays, U/S, labs)? Why? @ -None What meds were considered but not given or refused? Why? @ -3% however Dr. Harper only wants the patient on normal saline as initial treatment Did you discuss the management of the patient with other professionals (professionals i.e. , PA, BAR MANAGER, lab, RT, psych nurse, community mental health social worker, plumber apprentice, teacher, military source operations officer, nurse case manager)? Give summary @ -Dr. Harper - nephro. I also spoke with admitting physician Dr. Lee and director it project Dr. Alcantara. Dr. Menendez does not accept the patient into the ICU. States that she would be accepted if she was on 3% Was smoking cessation discussed for >3mins.? @ -No Was critical care preformed (if so, how long)? @ -No Were there social determinants of health that impacted care today? How? (Homelessness, low income, unemployed, alcoholism, drug addiction, transportatio n, low edu. Level, literacy, decrease access to med. care, [facility], rehab)? @ -No Was there de-escalation of care discussed even if they declined (Discuss DNR or withdrawal of care, Hospice)? DNR status @ -No What co-morbidities impacted this encounter? (DM, HTN, Smoking, COPD, CAD, Cancer, CVA, ARF, Chemo, Hep., AIDS, mental health diagnosis, sleep apnea, morbid obesity)? @ -chf Was patient admitted / discharged? Hospital course, mention meds given and route, prescriptions, significant lab abnormalities, going to OR and other pertinent info. @ -Admitted. Upon arrival patient was placed into room 17. Thorough history and physical exam was performed. Laboratory studies are conducted. Patient sodium is markedly low. Called and spoke with Dr. Fernandez. He would like the patient on normal saline at this time with a repeat sodium to be done in a few hours. Patient will be admitted. Spoke with Dr. Lee who agreed to admit the patient Undiagnosed new problem with uncertain prognosis? @ -Yes Drug Therapy requiring intensive monitoring for toxicity (Heparin, Nitro, Insulin, Cardizem)? @ -No Were any procedures done? @ -No Diagnosis/symptom? @ -Acute encephalopathy, acute hyponatremia Acute, or Chronic, or Acute on Chronic? @ -Cute Uncomplicated (without systemic symptoms) or Complicated (systemic symptoms)? @ -Complicated Side effects of treatment? @ -No Exacerbation, Progression, or Severe Exacerbation? @ -No Poses a threat to life or bodily function? How? (Chest pain, USA, NC, pneumonia, PE, COPD, DKA, ARF, appy, cholecystitis, CVA, Diverticulitis, Homicidal, Suic idal, threat to staff... and all critical care pts) @ -No - Lab Data Result diagrams: 05/07/23 07:33 05/10/23 13:03 Lab Results 05/03/23 05/03/23 05/03/23 Range/Units 12:48 12:48 12:48 PT (10.0-12.5) sec INR (<1.2) APTT (22.0-30.0) sec Sample Site ABG pH (7.35-7.45) ABG pCO2 (35-45) mmHg ABG pO2 (83-108) mmHg ABG HCO3 (21-25) mmol/L ABG Total CO2 (19-24) mmol/L ABG O2 Saturation (94-97) % ABG Base Excess mmol/L Aquiles Test FiO2 % Sodium (137-145) mmol/L Potassium (3.5-5.1) mmol/L Chloride (98-107) mmol/L Carbon Dioxide (22-30) mmol/L Anion Gap mmol/L BUN (7-17) mg/dL Creatinine (0.52-1.04) mg/dL Est GFR (CKD-EPI)AfAm (>60 ml/min/1.73 sqM) Est GFR (CKD-EPI)NonAf (>60 ml/min/1.73 sqM) Glucose (74-99) mg/dL Calcium (8.4-10.2) mg/dL Total Bilirubin (0.2-1.3) mg/dL AST (14-36) U/L ALT (4-34) U/L Alkaline Phosphatase (38-126) U/L Troponin I (0.000-0.034) ng/mL NT-Pro-B Natriuret Pep pg/mL Total Protein (6.3-8.2) g/dL Albumin (3.5-5.0) g/dL Urine Color Light Yellow Urine Appearance Clear (Clear) Urine pH 5.0 (5.0-8.0) Ur Specific [place] 1.009 (1.001-1.035) Urine Protein Negative (Negative) Urine Glucose (UA) Negative (Negative) Urine Ketones Negative (Negative) Urine Blood Negative (Negative) Urine Nitrite Negative (Negative) Urine Bilirubin Negative (Negative) Urine Urobilinogen <2.0 (<2.0) mg/dL Ur Leukocyte Esterase Negative (Negative) Urine Osmolality 263 L (400-1100) mOsm/kg Ur Random Creatinine 40.4 mg/dL Ur Random Sodium (40-220) mmol/L Influenza Type A (PCR) Not Detected (Not Detectd) Influenza Type B (PCR) Not Detected (Not Detectd) RSV (PCR) Not Detected (Not Detectd) SARS-CoV-2 (PCR) Not Detected (Not Detectd) 05/03/23 05/03/23 05/03/23 Range/Units 12:48 13:50 14:00 PT 10.2 (10.0-12.5) sec INR 0.9 (<1.2) APTT 24.6 (22.0-30.0) sec Sample Site Right Radial ABG pH 7.50 H (7.35-7.45) ABG pCO2 40 (35-45) mmHg ABG pO2 150 H (83-108) mmHg ABG HCO3 32 H (21-25) mmol/L ABG Total CO2 33 H (19-24) mmol/L ABG O2 Saturation 97.7 H (94-97) % ABG Base Excess 8.3 mmol/L Aquiles Test Yes FiO2 32 % Sodium (137-145) mmol/L Potassium (3.5-5.1) mmol/L Chloride (98-107) mmol/L Carbon Dioxide (22-30) mmol/L Anion Gap mmol/L BUN (7-17) mg/dL Creatinine (0.52-1.04) mg/dL Est GFR (CKD-EPI)AfAm (>60 ml/min/1.73 sqM) Est GFR (CKD-EPI)NonAf (>60 ml/min/1.73 sqM) Glucose (74-99) mg/dL Calcium (8.4-10.2) mg/dL Total Bilirubin (0.2-1.3) mg/dL AST (14-36) U/L ALT (4-34) U/L Alkaline Phosphatase (38-126) U/L Troponin I (0.000-0.034) ng/mL NT-Pro-B Natriuret Pep pg/mL Total Protein (6.3-8.2) g/dL Albumin (3.5-5.0) g/dL Urine Color Urine Appearance (Clear) Urine pH (5.0-8.0) Ur Specific [place] (1.001-1.035) Urine Protein (Negative) Urine Glucose (UA) (Negative) Urine Ketones (Negative) Urine Blood (Negative) Urine Nitrite (Negative) Urine Bilirubin (Negative) Urine Urobilinogen (<2.0) mg/dL Ur Leukocyte Esterase (Negative) Urine Osmolality (400-1100) mOsm/kg Ur Random Creatinine mg/dL Ur Random Sodium 28 L (40-220) mmol/L Influenza Type A (PCR) (Not Detectd) Influenza Type B (PCR) (Not Detectd) RSV (PCR) (Not Detectd) SARS-CoV-2 (PCR) (Not Detectd) 05/03/23 05/03/23 Range/Units 14:00 14:00 PT (10.0-12.5) sec INR (<1.2) APTT (22.0-30.0) sec Sample Site ABG pH (7.35-7.45) ABG pCO2 (35-45) mmHg ABG pO2 (83-108) mmHg ABG HCO3 (21-25) mmol/L ABG Total CO2 (19-24) mmol/L ABG O2 Saturation (94-97) % ABG Base Excess mmol/L Aquiles Test FiO2 % Sodium 113 L* (137-145) mmol/L Potassium 3.6 (3.5-5.1) mmol/L Chloride 68 L* (98-107) mmol/L Carbon Dioxide 28 (22-30) mmol/L Anion Gap 17 mmol/L BUN 67 H (7-17) mg/dL Creatinine 2.50 H (0.52-1.04) mg/dL Est GFR (CKD-EPI)AfAm 22 (>60 ml/min/1.73 sqM) Est GFR (CKD-EPI)NonAf 19 (>60 ml/min/1.73 sqM) Glucose 108 H (74-99) mg/dL Calcium 8.6 (8.4-10.2) mg/dL Total Bilirubin 0.8 (0.2-1.3) mg/dL AST 72 H (14-36) U/L ALT 48 H (4-34) U/L Alkaline Phosphatase 144 H (38-126) U/L Troponin I <0.012 (0.000-0.034) ng/mL NT-Pro-B Natriuret Pep 174 pg/mL Total Protein 7.2 (6.3-8.2) g/dL Albumin 4.4 (3.5-5.0) g/dL Urine Color Urine Appearance (Clear) Urine pH (5.0-8.0) Ur Specific [place] (1.001-1.035) Urine Protein (Negative) Urine Glucose (UA) (Negative) Urine Ketones (Negative) Urine Blood (Negative) Urine Nitrite (Negative) Urine Bilirubin (Negative) Urine Urobilinogen (<2.0) mg/dL Ur Leukocyte Esterase (Negative) Urine Osmolality (400-1100) mOsm/kg Ur Random Creatinine mg/dL Ur Random Sodium (40-220) mmol/L Influenza Type A (PCR) (Not Detectd) Influenza Type B (PCR) (Not Detectd) RSV (PCR) (Not Detectd) SARS-CoV-2 (PCR) (Not Detectd) Disposition Clinical Impression: Altered mental status, Hyponatremia, JASPER (acute kidney injury) Disposition: ADMITTED IP TO THIS [facility] Condition: Stable Is patient prescribed a controlled substance at d/c from ED?: No Time of Disposition: 15:22 Decision to Admit Reason: Admit from EC Decision Date: 05/03/23 Decision Time: 15:22
[2023-05-03 14:26] LABS: INR 0.9 (<1.2); Partial Thromboplastin Time 24.6 sec (22.0-30.0); Prothrombin Time 10.2 sec (10.0-12.5)
[2023-05-03 14:29] LABS: African American GFR (CKD) 22 (>60 ml/min/1.73 sqM); Non-African American GFR(CKD) 19 (>60 ml/min/1.73 sqM)
[2023-05-03 14:32] LABS: NT-Pro-B-Type Natriuretic Pept 174 pg/mL
[2023-05-03 14:38] LABS: Chloride 68 mmol/L (98-107); Sodium 113 mmol/L (137-145)
[2023-05-03] MEDS ORDERED: NALOXONE 0.4 MG/ML 1 ML VIAL IV PRN (15:22)
[2023-05-03] MEDS: SODIUM CHLORIDE 0.9% 1,000 ML IV SCH (15:29)
[2023-05-03 15:50] LABS: Anisocytosis Slight; HCT 28.2 % (34.0-46.0); HGB 9.1 gm/dL (11.4-16.0); Hypochromasia Slight; MCH 21.4 pg (25.0-35.0); MCHC 32.4 g/dL (31.0-37.0); Mean Platelet Volume 7.4; Microcytosis Marked; Platelet Count 401 k/uL (150-450); RBC 4.25 m/uL (3.80-5.40); WBC 17.3 k/uL (3.8-10.6)
[2023-05-03] MEDS: HALOPERIDOL LACTATE 5 MG/ML 1 ML VIAL IVP STA (15:55)
[2023-05-03 15:56] LABS: MCV 66.2 fL (80.0-100.0)
[2023-05-03 16:42] LABS: Anisocytosis (M) Present; Hypochromasia (M) Present; Lymphocytes # (M) 1.38 k/uL (1.0-4.8); Monocytes # (M) 1.21 k/uL (0-1.0); Neutrophils # (M) 14.71 k/uL (1.3-7.7); Neutrophils % (M) 85 %; Nucleated Red Blood Cells 0 /100 WBC (0-0); Total Cells Counted 100
--- NOTE | 2023-05-03 19:19 | XR ---
EXAMINATION TYPE: XR shoulder limited RT DATE OF EXAM: 05/03/2023 6:49 PM CLINICAL INDICATION:Female, 68 years old with history of possible dislocation; [facility] COMPARISON: 06/02/2019 TECHNIQUE: XR shoulder limited RT; examined in AP, internally rotated and scapular Y projections. FINDINGS: Reverse shoulder arthroplasty changes the cup appears on the inferior aspect of the glenoid prosthesis. No evidence of acute osseous pathology, joint dislocation, or soft tissue swelling. The remaining po rtions of the visualized chest are unremarkable. IMPRESSION: No definitive evidence for dislocation, no acute osseous pathology.
[2023-05-03 19:23] LABS: Creatinine,Urine Random 40.4 mg/dL
[2023-05-03 20:08] LABS: Glucose,Whole Blood 115 mg/dL (70-110)
[2023-05-03] MEDS: APIXABAN 5 MG TAB PO SCH (22:47)
[2023-05-03] MEDS: GABAPENTIN 100 MG CAP PO SCH (22:48)
[2023-05-03] MEDS: hydrOXYzine pamoate 25 MG CAP PO SCH (22:49)
[2023-05-03] MEDS: TOPIRAMATE 100 MG TAB PO SCH (22:50)
[2023-05-03] MEDS: HYDROcodone/APAP 10-325MG 1 EACH TAB PO SCH (22:50)
[2023-05-03] MEDS: tiZANidine 4 MG TAB PO SCH (22:51)
[2023-05-03] MEDS: rOPINIRole HCL 4 MG TABLET PO SCH (23:14)
[2023-05-04] MEDS: SODIUM CHLORIDE 3%(HYPERTONIC) 500 ML IV SCH (03:04)
--- NOTE | 2023-05-04 06:21 | P.CNPUL ---
History of Present Illness Consult date: 05/04/23 Requesting physician: Thien Harper Reason for consult: other (Severe hyponatremia requiring 3%) Chief complaint: Altered mental status and weakness History of present illness: I am seeing this patient in consultation today May 04, 2023 in the emergency room after she was sent in yesterday morning from [facility] chiefly for altered mental status, weakness, and low blood pressures. She was found to have severe hyponatremia, requiring 3% infusion, which requires ICU monitoring if continued. Patient is a 68-year-old white female with a plethora of medical comorbidities including coronary artery disease, CVA with right-sided weakness, PE/DVT, GI bleed, chronic anemia, hypertension, hyperlipidemia, obstructive sleep apnea without CPAP, hypothyroidism, morbid obesity with previous Alex-en-Y gastric bypass, Takotsubo syndrome, congestive heart failure, anxiety, depression. Patient was just discharged from the hospital on May 01 after being treated for an exacerbation of her congestive heart failure. She was aggressively diuresed and sent back to [facility]. Patient was sent back to the ER 2 days later after being found confused with low blood pressures by staff. No reported seizure-like activity. Patient is currently lying in bed, and is not cooperative with examination. She will not wake up, staff states that she was alert and talking and oriented x 3 just a minute ago. She is currently lying in bed with her eyes closed, on 2 L/min nasal cannula, in no acute distress. SpO2 is 98%. Brain CT did not show any acute intracranial process. There is small stable lacunar infarct. ABG not consistent with hypercapnic respiratory failure. Her sodium level was 113 on arrival, and initially treated with normal saline infusion. Nephrology wanted to start hypertonic saline, and for this reason a consult was placed for ICU management. 3% saline is infusing at 25 MLS per hour. Most recent sodium is up to 118, which is being checked every 2 hours. 24-hour goal should be 119-121. CBC on arrival: WC count 17.3, hemoglobin 9.1, hematocrit 28.2, platelets 401. The rest of the patient's BMP includes a potassium 3.6 chloride 68, serum bicarb 28, BUN 67, creatinine 2.5, glucose 108. LFTs mildly elevated. Troponin less than 0.012. NT proBNP 174. Urine sodium 28. Osmolalities are pending. Blood pressures were borderline hypotensive, but have since normalized. Heart rhythm is normal sinus. afebrile. She will be monitored in the intensive care unit until correction of her severe hyponatremia. Review of Systems ROS unobtainable: due to mental status Past Medical History Past Medical History: Asthma, Coronary Artery Disease (CAD), Chest Pain / Angina, Heart Failure, COPD, CVA/TIA, Deep Vein Thrombosis (DVT), Fibromyalgia, GERD/Reflux, GI Bleed, Hearing Disorder / Deafness, Hyperlipidemia, Hypertension, Memory Impairment, Myocardial Infarction (IA), Osteoarthritis (OA), Pneumonia, Pulmonary Embolus (PE), Respiratory Disorder, Seizure Disorder, Skin Disorder, Sleep Apnea/CPAP/BIPAP, Thyroid Disorder Additional Past Medical History / Comment(s): 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 Alex-en-Y gastric bypass for morbid obesity, has home o2 that was prescribed in 2019 but currently does not use Last Myocardial Infarction Date:: 2002 History of Any Multi-Drug Resistant Organisms: None Reported Past Surgical History: Bariatric Surgery, Hernia Repair, Hysterectomy, Joint Replacement, Orthopedic Surgery, Tubal Ligation Additional Past Surgical History / Comment(s): 10/19/19 PCI with stent, EGDs, colonoscopy/benign polyps, gastric bypass with revision, ventral and hiatal hernia repair, bladder suspension, R rotator curr repair/revision, L knee arthroscopy, rectocele, perinealplasty, 07/05/20 left shoulder replacement, 11/11/21 right shoulder replacement Past Anesthesia/Blood Transfusion Reactions: Motion Sickness Past Psychological History: Anxiety, Depression Smoking Status: Never smoker Past Alcohol Use History: Rare Past Drug Use History: None Reported - Past Family History Mother Family Medical History: Coronary Artery Disease (CAD), Eye Disorder Additional Family Medical History / Comment(s): Mother is 91 yrs old Father Family Medical History: Myocardial Infarction (IA) Additional Family Medical History / Comment(s): Father of a massive IA at the age of 53 yrs. Medications and Allergies Home Medications Medication Instructions Recorded Confirmed Type rOPINIRole HCL [Requip] 6 mg PO TID 11/09/17 05/03/23 History Apixaban [Eliquis] 5 mg PO BID 01/07/22 05/03/23 History Diclofenac Potassium [Cataflam] 50 mg PO BID 07/08/22 05/03/23 History Ipratropium-Albuterol Nebulize 3 ml INHALATION RT-QID PRN 07/08/22 05/03/23 History [Duoneb 0.5 mg-3 mg/3 ml Soln] Ergocalciferol [Vitamin D2 (1250 1,250 mcg PO RALPH@2100 10/10/22 05/03/23 History Mcg = [id number] Iu)] Levothyroxine Sodium [Synthroid] 88 mcg PO DAILY 10/10/22 05/03/23 History Albuterol Inhaler [Ventolin Hfa 1 - 2 puff INHALATION RT-Q6H PRN 04/26/23 05/03/23 History Inhaler] FLUoxetine HCL 40 mg PO DAILY 04/26/23 05/03/23 History Fluticasone/Umeclidin/Vilanter 1 puff INHALATION RT-DAILY 04/26/23 05/03/23 History [Trelegy Ellipta 100-62.5-25] Topiramate [Topamax] 100 mg PO BID 04/26/23 05/03/23 History hydrOXYzine pamoate [Vistaril] 100 mg PO HS 04/26/23 05/03/23 History tiZANidine [Zanaflex] 4 mg PO BID 04/26/23 05/03/23 History Furosemide [Lasix] 40 mg PO BID@0900,1600 #60 tab 05/01/23 05/03/23 Rx HYDROcodone/APAP 10-325MG [[place] 1 tab PO TID #9 tab 05/01/23 05/03/23 Rx 10-325] Pregabalin [Lyrica] 200 mg PO TID #9 cap 05/01/23 05/03/23 Rx Butalb/APAP/Caff 50-325-40Mg 1 tab PO Q6H PRN 05/03/23 05/03/23 History [Fioricet 50-325-40] Allergies Allergy/AdvReac Type Severity Reaction Status Date / Time adhesive tape Allergy Swelling Verified 05/03/23 14:18 cefprozil [From Cefzil] Allergy Unknown Verified 05/03/23 14:18 cyclobenzaprine Allergy Rash/Hives Verified 05/03/23 14:18 [From Flexeril] Sulfa (Sulfonamide Allergy Rash/Hives Verified 05/03/23 14:18 Antibiotics) valdecoxib [From Bextra] Allergy Unknown Verified 05/03/23 14:18 metaxalone [From Skelaxin] AdvReac Nausea & Verified 05/03/23 14:18 Vomiting Physical Exam Vitals: Vital Signs Temp Pulse Resp BP Pulse Ox 05/04/23 03:00 52 L 18 88/51 98 05/04/23 02:19 58 L 20 90/68 98 05/04/23 01:00 64 24 102/64 97 05/04/23 00:00 97.6 F 72 24 89/69 97 05/03/23 23:16 80 20 93/65 95 05/03/23 22:16 94 19 113/59 99 05/03/23 20:54 81 20 82/43 97 05/03/23 16:46 64 18 118/70 05/03/23 11:44 96.3 F L 75 18 127/73 98 Intake and Output 05/03/23 05/03/23 05/04/23 14:59 22:59 06:59 Output Total 700 1600 Balance -700 -1600 Output: Urine 700 1600 Uretheral (Saleem) 700 1600 Other: Weight 117.934 kg GENERAL EXAM: Patient not cooperative with examination. She will not open her eyes or speak to me. She did roll over away from me when I attempted to wake her. HEAD: Normocephalic and atraumatic EYES: Normal reaction of pupils, equal size. NOSE: Clear with pink turbinates. THROAT: No erythema or exudates. Dry mucous membranes. NECK: No masses, no JVD. CHEST: No chest wall deformity. LUNGS: Equal air entry with no crackles, wheeze, rhonchi or dullness. on 2 L/min nasal cannula. No conversational dyspnea or accessory muscle use.. CVS: S1 and S2 normal with no audible murmur, regular rhythm. No extra heart sounds ABDOMEN: No hepatosplenomegaly, active bowel sounds, no guarding or rigidity. SPINE: No scoliosis or deformity SKIN: No rashes CENTRAL NERVOUS SYSTEM: No focal deficits, tone is normal in all 4 extremities. No seizure like activity noted. EXTREMITIES: There is no peripheral edema, clubbing, or cyanosis. Peripheral pulses are intact. Restless bilateral lower extremities. Results - Laboratory Findings CBC and BMP: 05/03/23 15:43 05/04/23 05:05 ABG ABG pH 7.50 (7.35-7.45) H 05/03/23 13:50 ABG pCO2 40 mmHg (35-45) 05/03/23 13:50 ABG pO2 150 mmHg (83-108) H 05/03/23 13:50 ABG O2 Saturation 97.7 % (94-97) H 05/03/23 13:50 PT/INR, D-dimer PT 10.2 sec (10.0-12.5) 05/03/23 14:00 INR 0.9 (<1.2) 05/03/23 14:00 Abnormal lab findings: Abnormal Labs 05/03/23 05/03/23 05/03/23 12:48 13:50 14:00 WBC Hgb Hct MCV MCH RDW Neutrophils # (Manual) Monocytes # (Manual) ABG pH 7.50 H ABG pO2 150 H ABG HCO3 32 H ABG Total CO2 33 H ABG O2 Saturation 97.7 H Sodium 113 L* Chloride 68 L* BUN 67 H Creatinine 2.50 H Glucose 108 H POC Glucose (mg/dL) AST 72 H ALT 48 H Alkaline Phosphatase 144 H Ur Random Sodium 28 L 05/03/23 05/03/23 05/03/23 15:43 18:46 20:07 WBC 17.3 H Hgb 9.1 L Hct 28.2 L MCV 66.2 L D MCH 21.4 L RDW 16.0 H Neutrophils # (Manual) 14.71 H Monocytes # (Manual) 1.21 H ABG pH ABG pO2 ABG HCO3 ABG Total CO2 ABG O2 Saturation Sodium 114 L* Chloride BUN Creatinine Glucose POC Glucose (mg/dL) 115 H AST ALT Alkaline Phosphatase Ur Random Sodium 05/03/23 05/03/23 05/03/23 20:54 21:33 22:57 WBC Hgb Hct MCV MCH RDW Neutrophils # (Manual) Monocytes # (Manual) ABG pH ABG pO2 ABG HCO3 ABG Total CO2 ABG O2 Saturation Sodium 115 L* 115 L* 115 L* Chloride BUN Creatinine Glucose POC Glucose (mg/dL) AST ALT Alkaline Phosphatase Ur Random Sodium 05/04/23 05/04/23 01:05 03:18 WBC Hgb Hct MCV MCH RDW Neutrophils # (Manual) Monocytes # (Manual) ABG pH ABG pO2 ABG HCO3 ABG Total CO2 ABG O2 Saturation Sodium 115 L* 117 L* Chloride BUN Creatinine Glucose POC Glucose (mg/dL) AST ALT Alkaline Phosphatase Ur Random Sodium - Diagnostic Findings Chest x-ray: image reviewed Assessment and Plan Assessment: Severe Hyponatremia, possibly hypovolemic secondary recent aggresive diuresses. Hyponatremic encephalopathy Acute kidney injury, likely prerenal Hypothyroidism Hypertension History of PE/DVT, anticoagulated with Eliquis History of GI bleed Micorcytic, hypochromic anemia leukocytosis, no obvious infectious process Hyperlipidemia History of CVA/TIA with some right-sided weakness Coronary artery disease, with history of previous PCI/stent Chronic heart failure with reduced ejection fraction, stable Morbid obesity, status post Alex-en-Y gastric bypass surgery Obstructive sleep apnea, not on CPAP therapy Chronic pain syndrome Fibromyalgia Restless leg syndrome Plan: Patient's medications, labs, chest x-ray were reviewed Patient sodium on admission was 113, and originally treated with normal saline infusion. Patient was then started on 3% saline infusion by nephrology. Most recent sodium level 118. This is being monitored every 2 hours per nephrology recommendation. I believe the patient's 24 hour goal is between 119-121. This will likely be reached on the next draw, and the patient could safely be monitored on the step down unit once the hypertonic saline is stopped. Thyroid studies pending. Urine studies pending. Patient is otherwise hemodynamically stable, and will likely will not require ICU admission if her sodium reaches goal on next draw. I have personally seen and examined the patient, performed the documentation and the assessment and plan as written. Number of minutes spent on the visit:20 Time with Patient: Greater than 30
[2023-05-04] MEDS: LEVOTHYROXINE 88 MCG TAB PO SCH (06:25)
[2023-05-04 07:34] LABS: Anisocytosis Slight; Basophils % (A) 0 %; Eosinophils # (A) 0.2 k/uL (0-0.7); Eosinophils % (A) 2 %; HCT 27.1 % (34.0-46.0); HGB 8.9 gm/dL (11.4-16.0); Hypochromasia Slight; Lymphocytes % (A) 10 %; MCH 21.6 pg (25.0-35.0); MCHC 32.7 g/dL (31.0-37.0); MCV 66.1 fL (80.0-100.0); Mean Platelet Volume 7.5; Microcytosis Marked; Monocytes # (A) 0.9 k/uL (0-1.0); Monocytes % (A) 9 %; Neutrophils # (A) 7.5 k/uL (1.3-7.7); Neutrophils % (A) 77 %; Platelet Count 406 k/uL (150-450); RDW 16.4 % (11.5-15.5); WBC 9.8 k/uL (3.8-10.6)
[2023-05-04 07:49] LABS: African American GFR (CKD) 49 (>60 ml/min/1.73 sqM); Anion Gap 7 mmol/L; Blood Urea Nitrogen 61 mg/dL (7-17); Calcium 8.4 mg/dL (8.4-10.2); Carbon Dioxide 36 mmol/L (22-30); Chloride 75 mmol/L (98-107); Glucose 88 mg/dL (74-99); Non-African American GFR(CKD) 42 (>60 ml/min/1.73 sqM); Potassium 2.9 mmol/L (3.5-5.1)
[2023-05-04 08:58] LABS: Sodium 118 mmol/L (137-145)
[2023-05-04] MEDS: SYMBICORT 80-4.5 MCG INHALER INHALATION SCH (10:24)
[2023-05-04 10:58] LABS: NT-Pro-B-Type Natriuretic Pept 206 pg/mL
[2023-05-04 11:17] LABS: Magnesium 2.3 mg/dL (1.6-2.3)
--- NOTE | 2023-05-04 12:05 | P.NPCON ---
History of Present Illness - Reason for Consult acute renal failure, hyponatremia - History of Present Illness Reason for consultation: Acute kidney injury and hyponatremia History of present illness: Patient is a 68-year-old female seen in renal consultation for acute kidney injury and hyponatremia. Patient's baseline creatinine is near 0.8 and elevated at 2.5 this admission. Sodium level was 113 on admission and is up to 118 this morning. Patient initially received normal saline and then subsequently 3% saline with improvement in sodium level. She has a Saleem catheter and is nonoliguric. Patient is a poor historian. Patient presented to the hospital from an extended care facility due to altered mental status and low blood pressures. Patient has history of coronary artery disease and CVA with right- sided weakness. Patient was recently admitted at this facility and was discharged on May 01, 2023 after CHF exacerbation. Patient received IV diuretics and was transition to oral diuretics upon discharge. Echocardiogram showed ejection fraction of 45%. She is on room air. Renal function is improving. Creatinine down to 1.29 today. TSH normal. Checks x-ray does not show evidence of fluid overload. Vital signs are stable. General: Resting in bed. Agitated. HEENT: Head exam is unremarkable. LUNGS: No audible rhonchi or wheezes. HEART: Rate and Rhythm are regular. ABDOMEN: Obese, nontender. EXTREMITITES: No edema. Past Medical History Past Medical History: Asthma, Coronary Artery Disease (CAD), Chest Pain / Angina, Heart Failure, COPD, CVA/TIA, Deep Vein Thrombosis (DVT), Fibromyalgia, GERD/Reflux, GI Bleed, Hearing Disorder / Deafness, Hyperlipidemia, Hypertension, Memory Impairment, Myocardial Infarction (MD), Osteoarthritis (OA), Pneumonia, Pulmonary Embolus (PE), Respiratory Disorder, Seizure Disorder, Skin Disorder, Sleep Apnea/CPAP/BIPAP, Thyroid Disorder Additional Past Medical History / Comment(s): 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 Alex-en-Y gastric bypass for morbid obesity, has home o2 that was prescribed in 2020 but currently does not use Last Myocardial Infarction Date:: 2002 History of Any Multi-Drug Resistant Organisms: None Reported Past Surgical History: Bariatric Surgery, Hernia Repair, Hysterectomy, Joint Replacement, Orthopedic Surgery, Tubal Ligation Additional Past Surgical History / Comment(s): 10/19/19 PCI with stent, EGDs, colonoscopy/benign polyps, gastric bypass with revision, ventral and hiatal hernia repair, bladder suspension, R rotator curr repair/revision, L knee arthroscopy, rectocele, perinealplasty, 07/05/20 left shoulder replacement, 11/11/21 right shoulder replacement Past Anesthesia/Blood Transfusion Reactions: Motion Sickness Past Psychological History: Anxiety, Depression Smoking Status: Never smoker Past Alcohol Use History: Rare Past Drug Use History: None Reported - Past Family History Mother Family Medical History: Coronary Artery Disease (CAD), Eye Disorder Additional Family Medical History / Comment(s): Mother is 91 yrs old Father Family Medical History: Myocardial Infarction (MD) Additional Family Medical History / Comment(s): Father of a massive MD at the age of 53 yrs. Medications and Allergies Home Medications Medication Instructions Recorded Confirmed Type RX: rOPINIRole HCL [Requip] 6 mg PO TID 11/09/17 05/03/23 History RX: Apixaban [Eliquis] 5 mg PO BID 01/07/22 05/03/23 History RX: Diclofenac Potassium [Cataflam] 50 mg PO BID 07/08/22 05/03/23 History RX: Ipratropium-Albuterol Nebulize 3 ml INHALATION RT-QID PRN 07/08/22 05/03/23 History [Duoneb 0.5 mg-3 mg/3 ml Soln] RX: Ergocalciferol [Vitamin D2 1,250 mcg PO RALPH@2100 10/10/22 05/03/23 History (1250 Mcg = 16658 Iu)] RX: Levothyroxine Sodium 88 mcg PO DAILY 10/10/22 05/03/23 History [Synthroid] RX: Albuterol Inhaler [Ventolin 1 - 2 puff INHALATION RT-Q6H PRN 04/26/23 05/03/23 History Hfa Inhaler] RX: FLUoxetine HCL 40 mg PO DAILY 04/26/23 05/03/23 History RX: Fluticasone/Umeclidin/Vilanter 1 puff INHALATION RT-DAILY 04/26/23 05/03/23 History [Trelebinh Ellipta 100-62.5-25] RX: Topiramate [Topamax] 100 mg PO BID 04/26/23 05/03/23 History RX: hydrOXYzine pamoate [Vistaril] 100 mg PO HS 04/26/23 05/03/23 History RX: tiZANidine [Zanaflex] 4 mg PO BID 04/26/23 05/03/23 History RX: Furosemide [Lasix] 40 mg PO BID@0900,1600 #60 tab 05/01/23 05/03/23 Rx RX: HYDROcodone/APAP 10-325MG 1 tab PO TID #9 tab 05/01/23 05/03/23 Rx [[place] 10-325] RX: Pregabalin [Lyrica] 200 mg PO TID #9 cap 05/01/23 05/03/23 Rx RX: Butalb/APAP/Caff 50-325-40Mg 1 tab PO Q6H PRN 05/03/23 05/03/23 History [Fioricet 50-325-40] Allergies Allergy/AdvReac Type Severity Reaction Status Date / Time adhesive tape Allergy Swelling Verified 05/03/23 14:18 cefprozil [From Cefzil] Allergy Unknown Verified 05/03/23 14:18 cyclobenzaprine Allergy Rash/Hives Verified 05/03/23 14:18 [From Flexeril] Sulfa (Sulfonamide Allergy Rash/Hives Verified 05/03/23 14:18 Antibiotics) valdecoxib [From Bextra] Allergy Unknown Verified 05/03/23 14:18 metaxalone [From Skelaxin] AdvReac Nausea & Verified 05/03/23 14:18 Vomiting Physical Exam Vitals: Vital Signs Temp Pulse Resp BP Pulse Ox 05/04/23 10:05 52 L 18 97/82 95 05/04/23 06:24 97.6 F 63 24 99/68 95 05/04/23 05:00 62 20 97 05/04/23 04:00 61 19 112/93 97 05/04/23 03:00 52 L 18 88/51 98 05/04/23 02:19 58 L 20 90/68 98 05/04/23 01:00 64 24 102/64 97 05/04/23 00:00 97.6 F 72 24 89/69 97 05/03/23 23:16 80 20 93/65 95 05/03/23 22:16 94 19 113/59 99 05/03/23 20:54 81 20 82/43 97 05/03/23 16:46 64 18 118/70 Intake and Output 05/03/23 05/04/23 05/04/23 22:59 06:59 14:59 Output Total 700 3300 550 Balance -700 -3300 -550 Output: Urine 700 3300 550 Uretheral (Saleem) 700 3300 Results - Lab Results Most recent lab results ABG pH 7.50 (7.35-7.45) H 05/03/23 13:50 ABG pCO2 40 mmHg (35-45) 05/03/23 13:50 ABG pO2 150 mmHg (83-108) H 05/03/23 13:50 ABG HCO3 32 mmol/L (21-25) H 05/03/23 13:50 ABG O2 Saturation 97.7 % (94-97) H 05/03/23 13:50 Calcium 8.4 mg/dL (8.4-10.2) 05/04/23 06:51 Magnesium 2.3 mg/dL (1.6-2.3) 05/04/23 10:30 05/04/23 06:51 05/04/23 06:51 Assessment and Plan Plan: Assessment: 1. Acute kidney injury secondary to vasomotor nephropathy from hypovolemia. Improving with IV hydration. Creatinine 2.5 on admission and is 1.29 today. Baseline creatinine near 0.8 from April 2023. UA benign. 2. Chronic systolic CHF with ejection fraction of 45%. 3. Hypovolemic hyponatremia. TSH normal. Urine sodium 28 and urine osmolality 263. Sodium level of 113 on admission dated May 03, 2023 and improved to 118 this morning at 6:51 AM. 4. Hypokalemia from poor intake and diuresis. 5. Anemia. Rule out iron deficiency. 6. Morbid obesity. Plan: Resume 3% saline at 25 cc an hour if repeat sodium not higher. Continue to monitor sodium level every 2 hours. Replace potassium. Continue to monitor renal function and urine output. Check iron studies. Thank you for the consultation. I will continue to follow the patient with you during her hospital stay.
[2023-05-04 12:19] LABS: ALT 53 U/L (4-34); AST 80 U/L (14-36); African American GFR (CKD) 62 (>60 ml/min/1.73 sqM); Albumin 3.8 g/dL (3.5-5.0); Alkaline Phosphatase 116 U/L (38-126); Anion Gap 13 mmol/L; Blood Urea Nitrogen 60 mg/dL (7-17); Calcium 8.6 mg/dL (8.4-10.2); Carbon Dioxide 29 mmol/L (22-30); Chloride 77 mmol/L (98-107); Glucose 99 mg/dL (74-99); Non-African American GFR(CKD) 53 (>60 ml/min/1.73 sqM); Total Bilirubin 0.8 mg/dL (0.2-1.3); Total Protein 6.7 g/dL (6.3-8.2)
[2023-05-04 12:27] LABS: Sodium 119 mmol/L (137-145)
[2023-05-04] MEDS ORDERED: POTASSIUM CHLORIDE ER 20 MEQ TAB.ER PO STA (13:08)
[2023-05-04] MEDS: POTASSIUM CHLORIDE ER 20 MEQ TAB.ER PO SCH (13:27)
[2023-05-04 13:46] LABS: African American GFR (CKD) 60 (>60 ml/min/1.73 sqM); Anion Gap 10 mmol/L; Blood Urea Nitrogen 54 mg/dL (7-17); Carbon Dioxide 33 mmol/L (22-30); Chloride 77 mmol/L (98-107); Glucose 95 mg/dL (74-99); Non-African American GFR(CKD) 52 (>60 ml/min/1.73 sqM); Sodium 120 mmol/L (137-145)
[2023-05-04 13:55] LABS: Potassium 2.1 mmol/L (3.5-5.1)
[2023-05-04 13:56] LABS: Potassium 2.7 mmol/L (3.5-5.1)
[2023-05-04 15:26] LABS: African American GFR (CKD) 61 (>60 ml/min/1.73 sqM); Anion Gap 6 mmol/L; Blood Urea Nitrogen 51 mg/dL (7-17); Calcium 8.2 mg/dL (8.4-10.2); Carbon Dioxide 37 mmol/L (22-30); Chloride 79 mmol/L (98-107); Glucose 92 mg/dL (74-99); Non-African American GFR(CKD) 53 (>60 ml/min/1.73 sqM); Sodium 122 mmol/L (137-145)
[2023-05-04 15:33] LABS: Potassium 2.4 mmol/L (3.5-5.1)
[2023-05-04] MEDS ORDERED: POTASSIUM CHLORIDE 20 MEQ in WATER FOR INJECTION 1 100ML.BAG IVPB STA (16:16)
[2023-05-04] MEDS: POTASSIUM CHLORIDE ER 20 MEQ TAB.ER PO STA ×4 (16:37→23:04)
[2023-05-04] MEDS: DEXTROSE 5% IN WATER 1,000 ML IV SCH (16:38)
[2023-05-04] MEDS: POTASSIUM CHLORIDE 20 MEQ in WATER FOR INJECTION 1 100ML.BAG IVPB SCH (16:39)
[2023-05-04 22:21] LABS: African American GFR (CKD) 74 (>60 ml/min/1.73 sqM); Anion Gap 6 mmol/L; Blood Urea Nitrogen 46 mg/dL (7-17); Calcium 8.5 mg/dL (8.4-10.2); Carbon Dioxide 33 mmol/L (22-30); Chloride 81 mmol/L (98-107); Glucose 89 mg/dL (74-99); Non-African American GFR(CKD) 64 (>60 ml/min/1.73 sqM); Potassium 3.6 mmol/L (3.5-5.1); Sodium 120 mmol/L (137-145)
[2023-05-05 01:49] LABS: Potassium 4.2 mmol/L (3.5-5.1)
[2023-05-05 05:15] LABS: % Iron Saturation 4.46 (12.00-45.00); Ferritin 51.4 ng/mL (10.0-291.0); Iron 22 UG/DL (50-170); Total Iron Binding Capacity 493 UG/DL (228-460)
[2023-05-05] MEDS: IPRATROPIUM-ALBUTEROL 3 ML NEB INHALATION PRN (08:00)
--- NOTE | 2023-05-05 08:12 | P.HPIM ---
History of Present Illness H&P Date: 05/04/23 Chief Complaint: AMS Marlin Veras is a 68 yo F with PMH of chronic diastolic CHF, CAD s/p stenting, morbid obesity, hx TIA who presented to the ED from [facility] with increasing lethargy and AMS. She was recently treated in the hospital for a CHF exacerbation and responded well to diuretics. She had been at [facility] for approximately 10 days. She was noted to be more confused and EMS was called. On presentation, vitals stable, WBC 17k, Hgb 9.1, Na 113, Cl 68, K 3.6, trop negative, BNP 170. WBC on recheck 9.2. CXR and CT brain no acute process. Review of Systems All systems: negative Constitutional: Reports fatigue, Reports malaise, Reports weakness, Denies chills, Denies fever Eyes: denies blurred vision, denies pain Ears, nose, mouth and throat: Denies headache, Denies sore throat Cardiovascular: Denies chest pain, Denies shortness of breath Respiratory: Denies cough Gastrointestinal: Denies abdominal pain, Denies diarrhea, Denies nausea, Denies vomiting Genitourinary: Denies dysuria, Denies hematuria Musculoskeletal: Denies myalgias Integumentary: Denies pruritus, Denies rash Neurological: Denies numbness, Denies weakness Psychiatric: Denies anxiety, Denies depression Endocrine: Denies fatigue, Denies weight change Past Medical History Past Medical History: Asthma, Coronary Artery Disease (CAD), Chest Pain / Angina, Heart Failure, COPD, CVA/TIA, Deep Vein Thrombosis (DVT), Fibromyalgia, GERD/Reflux, GI Bleed, Hearing Disorder / Deafness, Hyperlipidemia, Hypertension, Memory Impairment, Myocardial Infarction (NC), Osteoarthritis (OA), Pneumonia, Pulmonary Embolus (PE), Respiratory Disorder, Seizure Disorder, Skin Disorder, Sleep Apnea/CPAP/BIPAP, Thyroid Disorder Additional Past Medical History / Comment(s): 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 Alex-en-Y gastric bypass for morbid obesity, has home o2 that was prescribed in 2019 but currently does not use Last Myocardial Infarction Date:: 2002 History of Any Multi-Drug Resistant Organisms: None Reported Past Surgical History: Bariatric Surgery, Hernia Repair, Hysterectomy, Joint Replacement, Orthopedic Surgery, Tubal Ligation Additional Past Surgical History / Comment(s): 10/19/19 PCI with stent, EGDs, colonoscopy/benign polyps, gastric bypass with revision, ventral and hiatal hernia repair, bladder suspension, R rotator curr repair/revision, L knee arthroscopy, rectocele, perinealplasty, 07/05/20 left shoulder replacement, 11/11/21 right shoulder replacement Past Anesthesia/Blood Transfusion Reactions: Motion Sickness Past Psychological History: Anxiety, Depression Smoking Status: Never smoker Past Alcohol Use History: Rare Past Drug Use History: None Reported - Past Family History Mother Family Medical History: Coronary Artery Disease (CAD), Eye Disorder Additional Family Medical History / Comment(s): Mother is 91 yrs old Father Family Medical History: Myocardial Infarction (NC) Additional Family Medical History / Comment(s): Father of a massive NC at the age of 53 yrs. Medications and Allergies Home Medications Medication Instructions Recorded Confirmed Type rOPINIRole HCL [Requip] 6 mg PO TID 11/09/17 05/03/23 History Apixaban [Eliquis] 5 mg PO BID 01/07/22 05/03/23 History Diclofenac Potassium [Cataflam] 50 mg PO BID 07/08/22 05/03/23 History Ipratropium-Albuterol Nebulize 3 ml INHALATION RT-QID PRN 07/08/22 05/03/23 Hist ory [Duoneb 0.5 mg-3 mg/3 ml Soln] Ergocalciferol [Vitamin D2 (1250 1,250 mcg PO RALPH@2100 10/10/22 05/03/23 History Mcg = [id number] Iu)] Levothyroxine Sodium [Synthroid] 88 mcg PO DAILY 10/10/22 05/03/23 History Albuterol Inhaler [Ventolin Hfa 1 - 2 puff INHALATION RT-Q6H PRN 04/26/23 History Inhaler] FLUoxetine HCL 40 mg PO DAILY 04/26/23 05/03/23 History Fluticasone/Umeclidin/Vilanter 1 puff INHALATION RT-DAILY 04/26/23 05/03/23 History [Trelegy Ellipta 100-62.5-25] Topiramate [Topamax] 100 mg PO BID 04/26/23 05/03/23 History hydrOXYzine pamoate [Vistaril] 100 mg PO HS 04/26/23 05/03/23 History tiZANidine [Zanaflex] 4 mg PO BID 04/26/23 05/03/23 History Furosemide [Lasix] 40 mg PO BID@0900,1600 #60 tab 05/01/23 05/03/23 Rx HYDROcodone/APAP 10-325MG [[place]ora 1 tab PO TID #9 tab 05/01/23 05/03/23 Rx 10-325] Pregabalin [Lyrica] 200 mg PO TID #9 cap 05/01/23 05/03/23 Rx Butalb/APAP/Caff 50-325-40Mg 1 tab PO Q6H PRN 05/03/23 05/03/23 History [Fioricet 50-325-40] Allergies Allergy/AdvReac Type Severity Reaction Status Date / Time adhesive tape Allergy Swelling Verified 05/03/23 14:18 cefprozil [From Cefzil] Allergy Unknown Verified 05/03/23 14:18 cyclobenzaprine Allergy Rash/Hives Verified 05/03/23 14:18 [From Flexeril] Sulfa (Sulfonamide Allergy Rash/Hives Verified 05/03/23 14:18 Antibiotics) valdecoxib [From Bextra] Allergy Unknown Verified 05/03/23 14:18 metaxalone [From Skelaxin] AdvReac Nausea & Verified 05/03/23 14:18 Vomiting Physical Exam Vitals: Vital Signs Temp Pulse Resp BP Pulse Ox 05/04/23 22:09 58 L 16 120/83 96 05/04/23 20:38 62 18 91/74 96 05/04/23 17:00 62 16 124/60 05/04/23 16:30 52 L 18 05/04/23 16:00 53 L 16 100/62 05/04/23 15:30 54 L 19 104/66 05/04/23 15:00 52 L 16 05/04/23 14:30 54 L 18 101/66 05/04/23 14:00 53 L 9 L 98/50 05/04/23 13:50 54 L 18 98/50 05/04/23 13:30 55 L 23 86/52 05/04/23 13:00 48 L 19 88/50 96 05/04/23 12:30 47 L 19 86/52 100 05/04/23 12:00 49 L 18 110/71 96 05/04/23 11:30 49 L 16 98 05/04/23 11:00 49 L 16 110/71 100 05/04/23 10:30 52 L 18 97/82 98 05/04/23 10:05 52 L 18 97/82 95 05/04/23 10:00 54 L 19 99/65 05/04/23 09:30 63 16 97/64 05/04/23 09:00 55 L 16 97/62 05/04/23 08:30 56 L 18 100/66 05/04/23 08:00 68 18 98/64 05/04/23 07:30 58 L 18 99/68 05/04/23 06:24 97.6 F 63 24 99/68 95 05/04/23 05:00 62 20 97 05/04/23 04:00 61 19 112/93 97 05/04/23 03:00 52 L 18 88/51 98 05/04/23 02:19 58 L 20 90/68 98 05/04/23 01:00 64 24 102/64 97 05/04/23 00:00 97.6 F 72 24 89/69 97 05/03/23 23:16 80 20 93/65 95 Intake and Output 05/04/23 05/04/23 05/04/23 06:59 14:59 22:59 Output Total 3300 1100 Balance -3300 -1100 Output: Urine 3300 1100 Uretheral (Saleem) 3300 Gen: morbidly obese, disheveled, NAD HEENT: NC/AT, mmm Neck: supple, no thyromegaly or JVD CV: RRR, no murmur. Pulses 2+ Lungs: Normal effort, clear throughout Abd: soft, nontender, non distended Neuro: alert, rouses to voice. intermittently oriented and lethargic Skin: warm and dry Results CBC & Chem 7: 05/04/23 06:51 05/05/23 06:15 Labs: Abnormal Lab Results - Last 24 Hours (Table) 05/03/23 05/03/23 05/03/23 Range/Units 12:48 12:48 18:46 Hgb (11.4-16.0) gm/dL Hct (34.0-46.0) % MCV (80.0-100.0) fL MCH (25.0-35.0) pg RDW (11.5-15.5) % Sodium (137-145) mmol/L Potassium (3.5-5.1) mmol/L Chloride (98-107) mmol/L Carbon Dioxide (22-30) mmol/L BUN (7-17) mg/dL Creatinine (0.52-1.04) mg/dL Osmolality 261 L (275-295) mOsm/kg Calcium (8.4-10.2) mg/dL AST (14-36) U/L ALT (4-34) U/L Urine Osmolality 263 L (400-1100) mOsm/kg Ur Random Sodium 28 L (40-220) mmol/L 05/03/23 05/04/23 05/04/23 Range/Units 22:57 01:05 03:18 Hgb (11.4-16.0) gm/dL Hct (34.0-46.0) % MCV (80.0-100.0) fL MCH (25.0-35.0) pg RDW (11.5-15.5) % Sodium 115 L* 115 L* 117 L* (137-145) mmol/L Potassium (3.5-5.1) mmol/L Chloride (98-107) mmol/L Carbon Dioxide (22-30) mmol/L BUN (7-17) mg/dL Creatinine (0.52-1.04) mg/dL Osmolality (275-295) mOsm/kg Calcium (8.4-10.2) mg/dL AST (14-36) U/L ALT (4-34) U/L Urine Osmolality (400-1100) mOsm/kg Ur Random Sodium (40-220) mmol/L 05/04/23 05/04/23 05/04/23 Range/Units 05:05 06:51 06:51 Hgb 8.9 L (11.4-16.0) gm/dL Hct 27.1 L (34.0-46.0) % MCV 66.1 L (80.0-100.0) fL MCH 21.6 L (25.0-35.0) pg RDW 16.4 H (11.5-15.5) % Sodium 118 L* 118 L* (137-145) mmol/L Potassium 2.9 L (3.5-5.1) mmol/L Chloride 75 L (98-107) mmol/L Carbon Dioxide 36 H (22-30) mmol/L BUN 61 H (7-17) mg/dL Creatinine 1.29 H (0.52-1.04) mg/dL Osmolality (275-295) mOsm/kg Calcium (8.4-10.2) mg/dL AST (14-36) U/L ALT (4-34) U/L Urine Osmolality (400-1100) mOsm/kg Ur Random Sodium (40-220) mmol/L 05/04/23 05/04/23 05/04/23 Range/Units 10:30 13:15 14:46 Hgb (11.4-16.0) gm/dL Hct (34.0-46.0) % MCV (80.0-100.0) fL MCH (25.0-35.0) pg RDW (11.5-15.5) % Sodium 119 L* 120 L 122 L (137-145) mmol/L Potassium 2.7 L* 2.1 L* 2.4 L* (3.5-5.1) mmol/L Chloride 77 L 77 L 79 L (98-107) mmol/L Carbon Dioxide 33 H 37 H (22-30) mmol/L BUN 60 H 54 H 51 H (7-17) mg/dL Creatinine 1.07 H 1.09 H 1.08 H (0.52-1.04) mg/dL Osmolality (275-295) mOsm/kg Calcium 8.0 L 8.2 L (8.4-10.2) mg/dL AST 80 H (14-36) U/L ALT 53 H (4-34) U/L Urine Osmolality (400-1100) mOsm/kg Ur Random Sodium (40-220) mmol/L 05/04/23 05/04/2305/04/24 Range/Units 17:59 17:59 21:21 Hgb (11.4-16.0) gm/dL Hct (34.0-46.0) % MCV (80.0-100.0) fL MCH (25.0-35.0) pg RDW (11.5-15.5) % Sodium 122 L 120 L (137-145) mmol/L Potassium 2.9 L (3.5-5.1) mmol/L Chloride 81 L (98-107) mmol/L Carbon Dioxide 33 H (22-30) mmol/L BUN 46 H (7-17) mg/dL Creatinine (0.52-1.04) mg/dL Osmolality (275-295) mOsm/kg Calcium (8.4-10.2) mg/dL AST (14-36) U/L ALT (4-34) U/L Urine Osmolality (400-1100) mOsm/kg Ur Random Sodium (40-220) mmol/L Assessment and Plan Plan: 1. Hyponatremia secondary to recent diuresis. Admit and consult nephrology. Hold lasix. Closely monitor sodium 2. Metabolic encephalopathy secondary to hyponatremia. Treat underlying derangement 3. CAD. Continue with eliquis 4. Restless leg syndrome. Continue gabapentin, requip
--- NOTE | 2023-05-05 10:52 | P.PN ---
Subjective Patient is seen in follow-up for hyponatremia and acute kidney injury. Renal function improved with IV fluids. Sodium level up to 125 this morning. Repeat levels are pending. She is currently off all IV fluids. Received 3% overnight. Poor historian. Vital signs are stable. General: Resting in bed. HEENT: Head exam is unremarkable. LUNGS: No audible rhonchi or wheezes. HEART: Rate and Rhythm are regular. ABDOMEN: Obese. EXTREMITITES: No edema. Objective - Vital Signs Vital signs: Vital Signs Temp 97.6 F 05/04/23 06:24 Pulse 80 05/05/23 08:10 Resp 16 05/05/23 08:10 BP 101/84 05/05/23 06:48 Pulse Ox 99 05/05/23 06:48 FiO2 Intake & Output 05/04/23 05/05/23 05/05/23 18:59 06:59 18:59 Output Total 1100 1400 Balance -1100 -1400 Output: Urine 1100 1400 Uretheral (Saleem) 700 - Labs CBC & Chem 7: 05/04/23 06:51 05/05/23 06:15 Labs: Abnormal Lab Results - Last 24 Hours (Table) 05/04/23 05/04/23 05/04/23 Range/Units 10:30 13:15 14:46 Sodium 119 L* 120 L 122 L (137-145) mmol/L Potassium 2.7 L* 2.1 L* 2.4 L* (3.5-5.1) mmol/L Chloride 77 L 77 L 79 L (98-107) mmol/L Carbon Dioxide 33 H 37 H (22-30) mmol/L BUN 60 H 54 H 51 H (7-17) mg/dL Creatinine 1.07 H 1.09 H 1.08 H (0.52-1.04) mg/dL Calcium 8.0 L 8.2 L (8.4-10.2) mg/dL Iron 22 L (50-170) UG/DL TIBC 493 H (228-460) UG/DL % Saturation 4.46 L (12.00-45.00) AST 80 H (14-36) U/L ALT 53 H (4-34) U/L 05/04/23 05/04/23 05/04/23 Range/Units 17:59 17:59 21:21 Sodium 122 L 120 L (137-145) mmol/L Potassium 2.9 L (3.5-5.1) mmol/L Chloride 81 L (98-107) mmol/L Carbon Dioxide 33 H (22-30) mmol/L BUN 46 H (7-17) mg/dL Creatinine (0.52-1.04) mg/dL Calcium (8.4-10.2) mg/dL Iron (50-170) UG/DL TIBC (228-460) UG/DL % Saturation (12.00-45.00) AST (14-36) U/L ALT (4-34) U/L 05/05/23 05/05/23 05/05/23 Range/Units 01:22 03:53 06:15 Sodium 121 L 122 L 125 L (137-145) mmol/L Potassium (3.5-5.1) mmol/L Chloride (98-107) mmol/L Carbon Dioxide (22-30) mmol/L BUN (7-17) mg/dL Creatinine (0.52-1.04) mg/dL Calcium (8.4-10.2) mg/dL Iron (50-170) UG/DL TIBC (228-460) UG/DL % Saturation (12.00-45.00) AST (14-36) U/L ALT (4-34) U/L Assessment and Plan Plan: Assessment: 1. Acute kidney injury secondary to vasomotor nephropathy from hypovolemia. Improving with IV hydration. Creatinine 2.5 on admission and is 0.92 today. Baseline creatinine near 0.8 from April 2023. UA benign. 2. Chronic systolic CHF with ejection fraction of 45%. 3. Hypovolemic hyponatremia. TSH normal. Urine sodium 28 and urine osmolality 263. TSH normal. Sodium level gradually improving. Status post 3% saline overnight. Sodium level 125 this morning. 4. Hypokalemia from poor intake and diuresis. Replaced. Better. 5. Anemia. Iron deficiency noted. 6. Morbid obesity. Plan: Follow-up repeat labs. Currently off IV fluids. Add IV iron. Continue to monitor renal function and urine output. Replace electrolytes as needed. Check a.m. cortisol level.
[2023-05-05 11:31] LABS: African American GFR (CKD) 71 (>60 ml/min/1.73 sqM); Anion Gap 7 mmol/L; Blood Urea Nitrogen 48 mg/dL (7-17); Calcium 8.8 mg/dL (8.4-10.2); Carbon Dioxide 29 mmol/L (22-30); Chloride 88 mmol/L (98-107); Glucose 120 mg/dL (74-99); Non-African American GFR(CKD) 62 (>60 ml/min/1.73 sqM); Sodium 124 mmol/L (137-145)
--- NOTE | 2023-05-05 11:31 | P.PN ---
Subjective Progress Note Date: 05/05/23 I am seeing this patient in consultation today May 04, 2023 in the emergency room after she was sent in yesterday morning from [facility] chiefly for altered mental status, weakness, and low blood pressures. She was found to have severe hyponatremia, requiring 3% infusion, which requires ICU monitoring if continued. Patient is a 68-year-old white female with a plethora of medical comorbidities including coronary artery disease, CVA with right-sided weakness, PE/DVT, GI bleed, chronic anemia, hypertension, hyperlipidemia, obstructive sleep apnea without CPAP, hypothyroidism, morbid obesity with previous Alex-en-Y gastric bypass, Takotsubo syndrome, congestive heart failure, anxiety, depression. Patient was just discharged from the hospital on May 01 after being treated for an exacerbation of her congestive heart failure. She was aggressively diuresed and sent back to [facility]. Patient was sent back to the ER 2 days later after being found confused with low blood pressures by staff. No reported seizure-like activity. Patient is currently lying in bed, and is not cooperative with examination. She will not wake up, staff states that she was alert and talking and oriented x 3 just a minute ago. She is currently lying in bed with her eyes closed, on 2 L/min nasal cannula, in no acute distress. SpO2 is 98%. Brain CT did not show any acute intracranial process. There is small stable lacunar infarct. ABG not consistent with hypercapnic respiratory failure. Her sodium level was 113 on arrival, and initially treated with normal saline infusion. Nephrology wanted to start hypertonic saline, and for this reason a consult was placed for ICU management. 3% saline is infusing at 25 MLS per hour. Most recent sodium is up to 118, which is being checked kellie ry 2 hours. 24-hour goal should be 119-121. CBC on arrival: WC count 17.3, hemoglobin 9.1, hematocrit 28.2, platelets 401. The rest of the patient's BMP includes a potassium 3.6 chloride 68, serum bicarb 28, BUN 67, creatinine 2.5, glucose 108. LFTs mildly elevated. Troponin less than 0.012. NT proBNP 174. Urine sodium 28. Osmolalities are pending. Blood pressures were borderline hypotensive, but have since normalized. Heart rhythm is normal sinus. afebrile. She will be monitored in the intensive care unit until correction of her severe hyponatremia. The patient is seen today May 05, 2023 in follow-up in the emergency department. She is currently sitting up on the stretcher. Awake and alert in no acute distress. She is maintaining O2 saturations in the 90s on room air. She has been afebrile. Hemodynamically stable. She was initially going to be admitted to the intensive care unit for 3% saline due to her hyponatremia her sodium is up to 125 and the drip is off. White count 9.8. Hemoglobin 8.9. Platelets 406. Potassium 4.2. Bicarb 33. BUN 46. Creatinine 0.92. AST 80. ALT 53. proBNP 206. He is on DuoNeb ventilations, Symbicort. Anticoagulated with Eliquis. Objective - Vital Signs Vital signs: Vital Signs Temp 97.6 F 05/04/23 06:24 Pulse 80 05/05/23 08:10 Resp 16 05/05/23 08:10 BP 101/84 05/05/23 06:48 Pulse Ox 99 05/05/23 06:48 FiO2 Intake & Output 05/04/23 05/05/23 05/05/23 18:59 06:59 18:59 Output Total 1100 1400 Balance -1100 -1400 Output: Urine 1100 1400 Uretheral (Saleem) 700 - Exam GENERAL EXAM: Awake, alert 68-year-old female, on room air, in no acute distress. HEAD: Normocephalic and atraumatic EYES: Normal reaction of pupils, equal size. NOSE: Clear with pink turbinates. THROAT: No erythema or exudates. Dry mucous membranes. NECK: No masses, no JVD. CHEST: No chest wall deformity. LUNGS: Equal air entry with no crackles, wheeze, rhonchi or dullness. No conversational dyspnea or accessory muscle use.. CVS: S1 and S2 normal with no audible murmur, regular rhythm. No extra heart sounds ABDOMEN: No hepatosplenomegaly, active bowel sounds, no guarding or rigidity. SPINE: No scoliosis or deformity SKIN: No rashes CENTRAL NERVOUS SYSTEM: No focal deficits, tone is normal in all 4 extremities. No seizure like activity noted. EXTREMITIES: There is no peripheral edema, clubbing, or cyanosis. Peripheral pulses are intact. Restless bilateral lower extremities. - Labs CBC & Chem 7: 05/04/23 06:51 05/05/23 06:15 Labs: Abnormal Lab Results - Last 24 Hours (Table) 05/04/23 05/04/23 05/04/23 Range/Units 10:30 13:15 14:46 Sodium 119 L* 120 L 122 L (137-145) mmol/L Potassium 2.7 L* 2.1 L* 2.4 L* (3.5-5.1) mmol/L Chloride 77 L 77 L 79 L (98-107) mmol/L Carbon Dioxide 33 H 37 H (22-30) mmol/L BUN 60 H 54 H 51 H (7-17) mg/dL Creatinine 1.07 H 1.09 H 1.08 H (0.52-1.04) mg/dL Calcium 8.0 L 8.2 L (8.4-10.2) mg/dL Iron 22 L (50-170) UG/DL TIBC 493 H (228-460) UG/DL % Saturation 4.46 L (12.00-45.00) AST 80 H (14-36) U/L ALT 53 H (4-34) U/L 05/04/23 05/04/23 05/04/23 Range/Units 17:59 17:59 21:21 Sodium 122 L 120 L (137-145) mmol/L Potassium 2.9 L (3.5-5.1) mmol/L Chloride 81 L (98-107) mmol/L Carbon Dioxide 33 H (22-30) mmol/L BUN 46 H (7-17) mg/dL Creatinine (0.52-1.04) mg/dL Calcium (8.4-10.2) mg/dL Iron (50-170) UG/DL TIBC (228-460) UG/DL % Saturation (12.00-45.00) AST (14-36) U/L ALT (4-34) U/L 05/05/23 05/05/23 05/05/23 Range/Units 01:22 03:53 06:15 Sodium 121 L 122 L 125 L (137-145) mmol/L Potassium (3.5-5.1) mmol/L Chloride (98-107) mmol/L Carbon Dioxide (22-30) mmol/L BUN (7-17) mg/dL Creatinine (0.52-1.04) mg/dL Calcium (8.4-10.2) mg/dL Iron (50-170) UG/DL TIBC (228-460) UG/DL % Saturation (12.00-45.00) AST (14-36) U/L ALT (4-34) U/L Assessment and Plan Assessment: Severe hyponatremia, possibly hypovolemic secondary recent aggressive diuretics Hyponatremic encephalopathy, improving Acute kidney injury, likely prerenal Hypothyroidism Hypertension History of PE/DVT, anticoagulated with Eliquis History of GI bleed Micorcytic, hypochromic anemia leukocytosis, no obvious infectious process Hyperlipidemia History of CVA/TIA with some right-sided weakness Coronary artery disease, with history of previous PCI/stent Chronic heart failure with reduced ejection fraction, stable Morbid obesity, status post Alex-en-Y gastric bypass surgery Obstructive sleep apnea, not on CPAP therapy Chronic pain syndrome Fibromyalgia Restless leg syndrome Plan: The patient was seen and evaluated Labs and medications reviewed Currently off 3% saline Current sodium 125 No need for ICU admission Continue the current treatment plan We will continue to follow I have personally seen and examined the patient, performed the documentation and the assessment and plan as written. Number of minutes spent on the visit: 10.
[2023-05-05] MEDS: SODIUM FERRIC GLUCONAT-SUCROSE 125 MG in SODIUM CHLORIDE 0.9% 100 ML IVPB SCH (12:04)
--- NOTE | 2023-05-05 14:04 | P.PN ---
Subjective Progress Note Date: 05/05/23 H&P Date: 05/04/23 Chief Complaint: AMS Marlin Veras is a 68 yo F with PMH of chronic diastolic CHF, CAD s/p stenting, morbid obesity, hx TIA who presented to the ED from [facility] with increasing lethargy and AMS. She was recently treated in the hospital for a CHF exacerbation and responded well to diuretics. She had been at [facility] for approximately 10 days. She was noted to be more confused and EMS was called. On presentation, vitals stable, WBC 17k, Hgb 9.1, Na 113, Cl 68, K 3.6, trop negative, BNP 170. WBC on recheck 9.2. CXR and CT brain no acute process. 05/05/2023 Sensorium significantly improved. Teary-eyed and expressing discontent with [facility] notified. Maintained on 3% saline with sodium improved, up to 124; drip has been discontinued. Potassium 4, bicarb 29, BUN 48, creatinine 0.95. afebrile. Continues on nebulized bronchodilators, Symbicort, maintaining O2 sat in the mid 90s on room air. Objective - Vital Signs Vital signs: Vital Signs Temp 97.6 F 05/04/23 06:24 Pulse 80 05/05/23 08:10 Resp 16 05/05/23 08:10 BP 101/84 05/05/23 06:48 Pulse Ox 99 05/05/23 06:48 FiO2 Intake & Output 05/04/23 05/05/23 05/05/23 18:59 06:59 18:59 Output Total 1100 1400 Balance -1100 -1400 Output: Urine 1100 1400 Uretheral (Saleem) 700 - Exam Gen: morbidly obese, NAD HEENT: NC/AT, mmm Neck: supple, no JVD CV: RRR, no murmur. Pulses 2+ Lungs: Normal effort, clear throughout Abd: soft, nontender, non distended Neuro: Alert and oriented x 2-3, Skin: warm and dry - Labs CBC & Chem 7: 05/04/23 06:51 05/05/23 10:49 Labs: Abnormal Lab Results - Last 24 Hours (Table) 05/04/23 05/04/23 05/04/23 Range/Units 10:30 13:15 14:46 Sodium 119 L* 120 L 122 L (137-145) mmol/L Potassium 2.7 L* 2.1 L* 2.4 L* (3.5-5.1) mmol/L Chloride 77 L 77 L 79 L (98-107) mmol/L Carbon Dioxide 33 H 37 H (22-30) mmol/L BUN 60 H 54 H 51 H (7-17) mg/dL Creatinine 1.07 H 1.09 H 1.08 H (0.52-1.04) mg/dL Calcium 8.0 L 8.2 L (8.4-10.2) mg/dL Iron 22 L (50-170) UG/DL TIBC 493 H (228-460) UG/DL % Saturation 4.46 L (12.00-45.00) AST 80 H (14-36) U/L ALT 53 H (4-34) U/L 05/04/23 05/04/23 05/04/23 Range/Units 17:59 17:59 21:21 Sodium 122 L 120 L (137-145) mmol/L Potassium 2.9 L (3.5-5.1) mmol/L Chloride 81 L (98-107) mmol/L Carbon Dioxide 33 H (22-30) mmol/L BUN 46 H (7-17) mg/dL Creatinine (0.52-1.04) mg/dL Calcium (8.4-10.2) mg/dL Iron (50-170) UG/DL TIBC (228-460) UG/DL % Saturation (12.00-45.00) AST (14-36) U/L ALT (4-34) U/L 05/05/23 05/05/23 05/05/23 Range/Units 01:22 03:53 06:15 Sodium 121 L 122 L 125 L (137-145) mmol/L Potassium (3.5-5.1) mmol/L Chloride (98-107) mmol/L Carbon Dioxide (22-30) mmol/L BUN (7-17) mg/dL Creatinine (0.52-1.04) mg/dL Calcium (8.4-10.2) mg/dL Iron (50-170) UG/DL TIBC (228-460) UG/DL % Saturation (12.00-45.00) AST (14-36) U/L ALT (4-34) U/L Assessment and Plan Assessment: Hyponatremia secondary to recent diuresis Metabolic encephalopathy secondary to the above, CAD Restless leg syndrome Plan: Continue on current medication regimen, monitoring and symptomatic treatment. No longer requires ICU bed, with significant improvement in sodium. close monitoring of renal function, electrolytes with repeat labs ordered for a.mChepe Emmanuel liaison offering patient different [place] locations. PT/OT. The impression and plan of care has been dictated as directed. : I performed a history and examination of this patient, discussed the same with the dictator. I agree with the dictator's note ,documented as a scribe. Any additional findings or plans will be noted.
[2023-05-05] MEDS: FLUoxetine HCL 20 MG CAP PO SCH (14:32)
[2023-05-05] MEDS: SODIUM CHLORIDE TAB 1 GM TAB PO STA ×2 (14:32→20:19)
[2023-05-06 08:08] LABS: African American GFR (CKD) 73 (>60 ml/min/1.73 sqM); Anion Gap 5 mmol/L; Blood Urea Nitrogen 43 mg/dL (7-17); Calcium 9.1 mg/dL (8.4-10.2); Carbon Dioxide 32 mmol/L (22-30); Chloride 89 mmol/L (98-107); Glucose 87 mg/dL (74-99); Magnesium 2.4 mg/dL (1.6-2.3); Non-African American GFR(CKD) 63 (>60 ml/min/1.73 sqM); Potassium 3.5 mmol/L (3.5-5.1); Sodium 126 mmol/L (137-145)
[2023-05-06 09:09] LABS: African American GFR (CKD) 71 (>60 ml/min/1.73 sqM); Anion Gap 8 mmol/L; Blood Urea Nitrogen 43 mg/dL (7-17); Calcium 9.2 mg/dL (8.4-10.2); Carbon Dioxide 29 mmol/L (22-30); Chloride 89 mmol/L (98-107); Glucose 87 mg/dL (74-99); Non-African American GFR(CKD) 62 (>60 ml/min/1.73 sqM); Sodium 126 mmol/L (137-145)
[2023-05-06] MEDS: NYSTATIN 100,000 UNIT/GM POWD 15 GM TOPICAL SCH (09:14)
[2023-05-06 09:38] LABS: Potassium 3.5 mmol/L (3.5-5.1)
--- NOTE | 2023-05-06 10:31 | P.PN ---
Subjective Progress Note Date: 05/06/23 I am seeing this patient in consultation today May 04, 2023 in the emergency room after she was sent in yesterday morning from [facility] chiefly for altered mental status, weakness, and low blood pressures. She was found to have severe hyponatremia, requiring 3% infusion, which requires ICU monitoring if continued. Patient is a 68-year-old white female with a plethora of medical comorbidities including coronary artery disease, CVA with right-sided weakness, PE/DVT, GI bleed, chronic anemia, hypertension, hyperlipidemia, obstructive sleep apnea without CPAP, hypothyroidism, morbid obesity with previous Alex-en-Y gastric bypass, Takotsubo syndrome, congestive heart failure, anxiety, depression. Patient was just discharged from the hospital on May 01 after being treated for an exacerbation of her congestive heart failure. She was aggressively diuresed and sent back to [facility]. Patient was sent back to the ER 2 days later after being found confused with low blood pressures by staff. No reported seizure-like activity. Patient is currently lying in bed, and is not cooperative with examination. She will not wake up, staff states that she was alert and talking and oriented x 3 just a minute ago. She is currently lying in bed with her eyes closed, on 2 L/min nasal cannula, in no acute distress. SpO2 is 98%. Brain CT did not show any acute intracranial process. There is small stable lacunar infarct. ABG not consistent with hypercapnic respiratory failure. Her sodium level was 113 on arrival, and initially treated with normal saline infusion. Nephrology wanted to start hypertonic saline, and for this reason a consult was placed for ICU management. 3% saline is infusing at 25 MLS per hour. Most recent sodium is up to 118, which is being checked kellie ry 2 hours. 24-hour goal should be 119-121. CBC on arrival: WC count 17.3, hemoglobin 9.1, hematocrit 28.2, platelets 401. The rest of the patient's BMP includes a potassium 3.6 chloride 68, serum bicarb 28, BUN 67, creatinine 2.5, glucose 108. LFTs mildly elevated. Troponin less than 0.012. NT proBNP 174. Urine sodium 28. Osmolalities are pending. Blood pressures were borderline hypotensive, but have since normalized. Heart rhythm is normal sinus. afebrile. She will be monitored in the intensive care unit until correction of her severe hyponatremia. The patient is seen today May 05, 2023 in follow-up in the emergency department. She is currently sitting up on the stretcher. Awake and alert in no acute distress. She is maintaining O2 saturations in the 90s on room air. She has been afebrile. Hemodynamically stable. She was initially going to be admitted to the intensive care unit for 3% saline due to her hyponatremia her sodium is up to 125 and the drip is off. White count 9.8. Hemoglobin 8.9. Platelets 406. Potassium 4.2. Bicarb 33. BUN 46. Creatinine 0.92. AST 80. ALT 53. proBNP 206. He is on DuoNeb ventilations, Symbicort. Anticoagulated with Eliquis. The patient is seen today May 06, 2023 in follow-up on the regular medical floor. She is currently sitting up at the bedside. Awake and alert in no acute distress. She is maintaining good O2 saturation in the 90s on room air. No IV fluids. She is on fluid restrictions of 1500 mL/day. Her current sodium is 126. Potassium 3.5. Bicarb 29. BUN 43. Creatinine 0.95. Glucose 87. She is continue on DuoNeb inhalations, Symbicort. Anticoagulated with Eliquis. Receiving iron replacement. Objective - Vital Signs Vital signs: Vital Signs Temp 97.8 F 05/06/23 07:40 Pulse 64 05/06/23 07:40 Resp 16 05/06/23 08:00 BP 102/36 05/06/23 07:40 Pulse Ox 99 05/06/23 07:40 FiO2 Intake & Output 05/05/23 05/06/23 05/06/23 18:59 06:59 18:59 Intake Total 444 1190 Output Total 1100 Balance -656 1190 Weight 117.934 kg 118 kg Intake: Oral 444 1190 Output: Urine 1100 Other: Voiding Method Indwelling Catheter Indwelling Catheter - Exam GENERAL EXAM: Awake, 68-year-old female, sitting up at the bedside, on room air, in no acute distress. HEAD: Normocephalic and atraumatic EYES: Normal reaction of pupils, equal size. NOSE: Clear with pink turbinates. THROAT: No erythema or exudates. Dry mucous membranes. NECK: No masses, no JVD. CHEST: No chest wall deformity. LUNGS: Equal air entry with no crackles, wheeze, rhonchi or dullness. No conversational dyspnea. CVS: S1 and S2 normal with no audible murmur, regular rhythm. No extra heart sounds ABDOMEN: No hepatosplenomegaly, active bowel sounds, no guarding or rigidity. SPINE: No scoliosis or deformity SKIN: No rashes CENTRAL NERVOUS SYSTEM: No focal deficits, tone is normal in all 4 extremities. No seizure like activity noted. EXTREMITIES: There is no peripheral edema, clubbing, or cyanosis. Peripheral pulses are intact. Restless bilateral lower extremities. - Labs CBC & Chem 7: 05/04/23 06:51 05/06/23 07:01 Labs: Abnormal Lab Results - Last 24 Hours (Table) 05/05/23 05/05/23 05/06/23 Range/Units 10:49 17:41 07:01 Sodium 124 L 126 L 126 L (137-145) mmol/L Chloride 88 L 89 L (98-107) mmol/L Carbon Dioxide 32 H (22-30) mmol/L BUN 48 H 43 H (7-17) mg/dL Glucose 120 H (74-99) mg/dL Magnesium 2.4 H (1.6-2.3) mg/dL 05/06/23 Range/Units 07:01 Sodium 126 L (137-145) mmol/L Chloride 89 L (98-107) mmol/L Carbon Dioxide (22-30) mmol/L BUN 43 H (7-17) mg/dL Glucose (74-99) mg/dL Magnesium (1.6-2.3) mg/dL Assessment and Plan Assessment: Severe hyponatremia, possibly hypovolemic secondary recent aggressive diuretics Hyponatremic encephalopathy, improving Acute kidney injury, likely prerenal Hypothyroidism Hypertension History of PE/DVT, anticoagulated with Eliquis History of GI bleed Micorcytic, hypochromic anemia leukocytosis, no obvious infectious process Hyperlipidemia History of CVA/TIA with some right-sided weakness Coronary artery disease, with history of previous PCI/stent Chronic heart failure with reduced ejection fraction, stable Morbid obesity, status post Alex-en-Y gastric bypass surgery Obstructive sleep apnea, not on CPAP therapy Chronic pain syndrome Fibromyalgia Restless leg syndrome Plan: The patient was seen and evaluated Medications reviewed Current sodium 126 Continue the current treatment plan Plan is for subacute rehab at discharge We will continue to follow I have personally seen and examined the patient, performed the documentation and the assessment and plan as written. Number of minutes spent on the visit: 10.
--- NOTE | 2023-05-06 11:33 | P.PN ---
Subjective Progress Note Date: 05/06/23 Patient is seen in follow-up for hyponatremia and acute kidney injury. Renal function improved with IV fluids. Having rash related to heart monitor stickers. Otherwise feeling OK. Vital signs are stable. General: Resting in bed. HEENT: Head exam is unremarkable. LUNGS: No audible rhonchi or wheezes. HEART: Rate and Rhythm are regular. ABDOMEN: Obese. EXTREMITITES: No edema. Objective - Vital Signs Vital signs: Vital Signs Temp 97.8 F 05/06/23 07:40 Pulse 64 05/06/23 07:40 Resp 16 05/06/23 08:00 BP 102/36 05/06/23 07:40 Pulse Ox 99 05/06/23 07:40 FiO2 Intake & Output 05/05/23 05/06/23 05/06/23 18:59 06:59 18:59 Intake Total 444 1190 Output Total 1100 Balance -656 1190 Weight 117.934 kg 118 kg Intake: Oral 444 1190 Output: Urine 1100 Other: Voiding Method Indwelling Catheter Indwelling Catheter - Labs CBC & Chem 7: 05/04/23 06:51 05/06/23 07:01 Labs: Abnormal Lab Results - Last 24 Hours (Table) 05/05/23 05/06/23 05/06/23 Range/Units 17:41 07:01 07:01 Sodium 126 L 126 L 126 L (137-145) mmol/L Chloride 89 L 89 L (98-107) mmol/L Carbon Dioxide 32 H (22-30) mmol/L BUN 43 H 43 H (7-17) mg/dL Magnesium 2.4 H (1.6-2.3) mg/dL Assessment and Plan Plan: Assessment: 1. Acute kidney injury secondary to vasomotor nephropathy from hypovolemia. Improving with IV hydration. Creatinine 2.5 on admission and is 0.92 today. Baseline creatinine near 0.8 from April 2023. UA benign. 2. Chronic systolic CHF with ejection fraction of 45%. 3. Hypovolemic hyponatremia. TSH normal. Urine sodium 28 and urine osmolality 263. TSH normal. Sodium level gradually improving. Status post 3% saline 2/, Sodium level stable 126 this morning. 4. Hypokalemia from poor intake and diuresis. Replaced. Better. 5. Anemia. Iron deficiency noted. 6. Morbid obesity. Plan: Follow-up repeat labs. Add IV iron. Continue to monitor renal function and urine output. Replace electrolytes as needed. Will give 500cc bolus normal saline given sodium level stable at 126
[2023-05-06] MEDS: diphenhydrAMINE 2% CREAM 28.4 GM TUBE TOPICAL SCH (14:12)
--- NOTE | 2023-05-06 14:31 | P.PN ---
Subjective Progress Note Date: 05/06/23 68 yo F with PMH of chronic diastolic CHF, CAD s/p stenting, morbid obesity, hx TIA who presented to the ED from [facility] with increasing lethargy and AMS. She was recently treated in the hospital for a CHF exacerbation and responded well to diuretics. She had been at [facility] for approximately 10 days. She was noted to be more confused and EMS was called. On presentation, vitals stable, WBC 17k, Hgb 9.1, Na 113, Cl 68, K 3.6, trop negative, BNP 170. WBC on recheck 9.2. CXR and CT brain no acute process. 05/05/2023 Sensorium significantly improved. Teary-eyed and expressing discontent with [facility] notified. Maintained on 3% saline with sodium improved, up to 124; drip has been discontinued. Potassium 4, bicarb 29, BUN 48, creatinine 0.95. afebrile. Continues on nebulized bronchodilators, Symbicort, maintaining O2 sat in the mid 90s on room air. 06/03/2023: Patient seen and evaluated bedside, serum sodium levels noted, does complain of rash at the site of stickers from telemetry. Requesting daily to be removed.. Waiting for discharge to rehab facility PHYSICAL EXAMINATION: GENERAL: The patient is alert and oriented x3, not in any acute distress. Well developed, well nourished. HEENT: Pupils are round and equally reacting to light. EOMI. CARDIOVASCULAR: S1 and S2 present. No murmurs, rubs, or gallops. PULMONARY: Chest is clear to auscultation, no wheezing or crackles. ABDOMEN: Soft, nontender, nondistended, normoactive bowel sounds. No palpable organomegaly. MUSCULOSKELETAL: No joint swelling or deformity. EXTREMITIES: No cyanosis, clubbing, or pedal edema. NEUROLOGICAL: Gross neurological examination did not reveal any focal deficits. SKIN: Rash noted at site of stickers from telemetry monitoring Objective - Vital Signs Vital signs: Vital Signs Temp 97.8 F 05/06/23 07:40 Pulse 64 05/06/23 07:40 Resp 16 05/06/23 08:00 BP 102/36 05/06/23 07:40 Pulse Ox 99 05/06/23 07:40 FiO2 Intake & Output 05/05/23 05/06/23 05/06/23 18:59 06:59 18:59 Intake Total 444 1190 Output Total 1100 700 Balance -656 1190 -700 Weight 117.934 kg 118 kg Intake: Oral 444 1190 Output: Urine 1100 700 Other: Voiding Method Indwelling Catheter Indwelling Catheter - Labs CBC & Chem 7: 05/04/23 06:51 05/06/23 07:01 Labs: Abnormal Lab Results - Last 24 Hours (Table) 05/05/23 05/06/23 05/06/23 Range/Units 17:41 07:01 07:01 Sodium 126 L 126 L 126 L (137-145) mmol/L Chloride 89 L 89 L (98-107) mmol/L Carbon Dioxide 32 H (22-30) mmol/L BUN 43 H 43 H (7-17) mg/dL Magnesium 2.4 H (1.6-2.3) mg/dL Assessment and Plan Assessment: Assessment and plan Acute metabolic encephalopathy secondary to hyponatremia Severe hyponatremia Generalized debility Coronary artery disease Restless leg syndrome Chronic congestive heart failure History of TIA Morbid obesity * In regards to metabolic encephalopathy significant improvement in mentation, follow-up on basic metabolic panel * In regards to restless leg continue home regimen * Regards to chronic medical issues continue home regimen including Eliquis * Plan to discharge to subacute rehab Time with Patient: Greater than 30
[2023-05-06] MEDS: SODIUM CHLORIDE 0.9% 500 ML 500 ML IV ONE (16:00)
[2023-05-07 08:07] LABS: Anisocytosis Slight; HCT 28.4 % (34.0-46.0); HGB 8.7 gm/dL (11.4-16.0); Hypochromasia Marked; MCH 21.3 pg (25.0-35.0); MCHC 30.5 g/dL (31.0-37.0); MCV 69.7 fL (80.0-100.0); Mean Platelet Volume 7.1; Microcytosis Marked; Platelet Count 413 k/uL (150-450); RBC 4.08 m/uL (3.80-5.40); RDW 17.2 % (11.5-15.5); WBC 7.5 k/uL (3.8-10.6)
--- NOTE | 2023-05-07 08:36 | P.PN ---
Subjective Progress Note Date: 05/07/23 I am seeing this patient in consultation today May 04, 2023 in the emergency room after she was sent in yesterday morning from [facility] chiefly for altered mental status, weakness, and low blood pressures. She was found to have severe hyponatremia, requiring 3% infusion, which requires ICU monitoring if continued. Patient is a 68-year-old white female with a plethora of medical comorbidities including coronary artery disease, CVA with right-sided weakness, PE/DVT, GI bleed, chronic anemia, hypertension, hyperlipidemia, obstructive sleep apnea without CPAP, hypothyroidism, morbid obesity with previous Alex-en-Y gastric bypass, Takotsubo syndrome, congestive heart failure, anxiety, depression. Patient was just discharged from the hospital on May 01 after being treated for an exacerbation of her congestive heart failure. She was aggressively diuresed and sent back to [facility]. Patient was sent back to the ER 2 days later after being found confused with low blood pressures by staff. No reported seizure-like activity. Patient is currently lying in bed, and is not cooperative with examination. She will not wake up, staff states that she was alert and talking and oriented x 3 just a minute ago. She is currently lying in bed with her eyes closed, on 2 L/min nasal cannula, in no acute distress. SpO2 is 98%. Brain CT did not show any acute intracranial process. There is small stable lacunar infarct. ABG not consistent with hypercapnic respiratory failure. Her sodium level was 113 on arrival, and initially treated with normal saline infusion. Nephrology wanted to start hypertonic saline, and for this reason a consult was placed for ICU management. 3% saline is infusing at 25 MLS per hour. Most recent sodium is up to 118, which is being checked kellie ry 2 hours. 24-hour goal should be 119-121. CBC on arrival: WC count 17.3, hemoglobin 9.1, hematocrit 28.2, platelets 401. The rest of the patient's BMP includes a potassium 3.6 chloride 68, serum bicarb 28, BUN 67, creatinine 2.5, glucose 108. LFTs mildly elevated. Troponin less than 0.012. NT proBNP 174. Urine sodium 28. Osmolalities are pending. Blood pressures were borderline hypotensive, but have since normalized. Heart rhythm is normal sinus. afebrile. She will be monitored in the intensive care unit until correction of her severe hyponatremia. The patient is seen today May 05, 2023 in follow-up in the emergency department. She is currently sitting up on the stretcher. Awake and alert in no acute distress. She is maintaining O2 saturations in the 90s on room air. She has been afebrile. Hemodynamically stable. She was initially going to be admitted to the intensive care unit for 3% saline due to her hyponatremia her sodium is up to 125 and the drip is off. White count 9.8. Hemoglobin 8.9. Platelets 406. Potassium 4.2. Bicarb 33. BUN 46. Creatinine 0.92. AST 80. ALT 53. proBNP 206. He is on DuoNeb ventilations, Symbicort. Anticoagulated with Eliquis. The patient is seen today May 06, 2023 in follow-up on the regular medical floor. She is currently sitting up at the bedside. Awake and alert in no acute distress. She is maintaining good O2 saturation in the 90s on room air. No IV fluids. She is on fluid restrictions of 1500 mL/day. Her current sodium is 126. Potassium 3.5. Bicarb 29. BUN 43. Creatinine 0.95. Glucose 87. She is continue on DuoNeb inhalations, Symbicort. Anticoagulated with Eliquis. Receiving iron replacement. The patient is seen today May 07, 2023 and follow-up on the regular medical floor. She is currently resting in bed. Awake and alert in no acute distress. He is maintaining good O2 saturations in the 90s on room air. She has been afebrile. Hemodynamically stable. White count 7.5. Hemoglobin 8.7. Platelets 413. Most recent sodium 126. Today's sodium is pending. Remains on a fluid restriction of 1500 mL. Nephrology is following. She is continue on DuoNeb inhalations, Symbicort. Anticoagulated with Eliquis. Objective - Vital Signs Vital signs: Vital Signs Temp 98.1 F 05/07/23 01:23 Pulse 72 05/07/23 01:23 Resp 18 05/07/23 01:23 BP 119/67 05/07/23 01:23 Pulse Ox 93 L 05/07/23 01:23 FiO2 Intake & Output 05/06/23 05/07/23 05/07/23 18:59 06:59 18:59 Intake Total 640 240 Output Total 700 400 Balance -60 -160 Intake: Oral 640 240 Output: Urine 700 400 Other: Voiding Method Indwelling Catheter Indwelling Catheter - Exam GENERAL EXAM: Awake, alert 68-year-old female, resting in bed, on room air, in no acute distress. HEAD: Normocephalic and atraumatic EYES: Normal reaction of pupils, equal size. NOSE: Clear with pink turbinates. THROAT: No erythema or exudates. Dry mucous membranes. NECK: No masses, no JVD. CHEST: No chest wall deformity. LUNGS: Equal air entry with no crackles, wheeze, rhonchi or dullness. No conversational dyspnea. CVS: S1 and S2 normal with no audible murmur, regular rhythm. No extra heart sounds ABDOMEN: No hepatosplenomegaly, active bowel sounds, no guarding or rigidity. SPINE: No scoliosis or deformity SKIN: No rashes CENTRAL NERVOUS SYSTEM: No focal deficits, tone is normal in all 4 extremities. No seizure like activity noted. EXTREMITIES: There is no peripheral edema, clubbing, or cyanosis. Peripheral pulses are intact. Restless bilateral lower extremities. - Labs CBC & Chem 7: 05/07/23 07:33 05/06/23 07:01 Labs: Abnormal Lab Results - Last 24 Hours (Table) 05/06/23 05/07/23 Range/Units 07:01 07:33 Hgb 8.7 L (11.4-16.0) gm/dL Hct 28.4 L (34.0-46.0) % MCV 69.7 L (80.0-100.0) fL MCH 21.3 L (25.0-35.0) pg MCHC 30.5 L (31.0-37.0) g/dL RDW 17.2 H (11.5-15.5) % Sodium 126 L (137-145) mmol/L Chloride 89 L (98-107) mmol/L BUN 43 H (7-17) mg/dL Assessment and Plan Assessment: Severe hyponatremia, possibly hypovolemic secondary recent aggressive diuretics. Most recent sodium 126 Hyponatremic encephalopathy, improving Acute kidney injury, likely prerenal Hypothyroidism Hypertension History of PE/DVT, anticoagulated with Eliquis History of GI bleed Micorcytic, hypochromic anemia leukocytosis, no obvious infectious process Hyperlipidemia History of CVA/TIA with some right-sided weakness Coronary artery disease, with history of previous PCI/stent Chronic heart failure with reduced ejection fraction, stable Morbid obesity, status post Alex-en-Y gastric bypass surgery Obstructive sleep apnea, not on CPAP therapy Chronic pain syndrome Fibromyalgia Restless leg syndrome Plan: The patient was seen and evaluated Medications and labs reviewed Current sodium 126 Nephrology is following Continue the current treatment plan Plan is for subacute rehab at discharge This patient was seen independently by the pulmonary nurse practitioner addressing pulmonary issues I have personally seen and examined the patient, performed the documentation and the assessment and plan as written. Number of minutes spent on the visit: 24.
[2023-05-07 08:37] LABS: African American GFR (CKD) 87 (>60 ml/min/1.73 sqM); Anion Gap 8 mmol/L; Blood Urea Nitrogen 32 mg/dL (7-17); Calcium 9.1 mg/dL (8.4-10.2); Carbon Dioxide 27 mmol/L (22-30); Chloride 93 mmol/L (98-107); Glucose 102 mg/dL (74-99); Non-African American GFR(CKD) 76 (>60 ml/min/1.73 sqM); Potassium 3.4 mmol/L (3.5-5.1); Sodium 128 mmol/L (137-145)
--- NOTE | 2023-05-07 09:15 | P.PN ---
Subjective Progress Note Date: 05/07/23 Patient is seen in follow-up for hyponatremia and acute kidney injury. No acute events over night. Vital signs are stable. General: Resting in bed. HEENT: Head exam is unremarkable. LUNGS: No audible rhonchi or wheezes. HEART: Rate and Rhythm are regular. ABDOMEN: Obese. EXTREMITITES: No edema. Objective - Vital Signs Vital signs: Vital Signs Temp 97.6 F 05/07/23 07:15 Pulse 74 05/07/23 07:15 Resp 16 05/07/23 07:15 BP 92/51 05/07/23 07:15 Pulse Ox 97 05/07/23 07:15 FiO2 Intake & Output 05/06/23 05/07/23 05/07/23 18:59 06:59 18:59 Intake Total 640 240 Output Total 700 400 Balance -60 -160 Intake: Oral 640 240 Output: Urine 700 400 Other: Voiding Method Indwelling Catheter Indwelling Catheter Indwelling Catheter - Labs CBC & Chem 7: 05/07/23 07:33 05/07/23 07:33 Labs: Abnormal Lab Results - Last 24 Hours (Table) 05/06/23 05/07/23 05/07/23 Range/Units 07:01 07:33 07:33 Hgb 8.7 L (11.4-16.0) gm/dL Hct 28.4 L (34.0-46.0) % MCV 69.7 L (80.0-100.0) fL MCH 21.3 L (25.0-35.0) pg MCHC 30.5 L (31.0-37.0) g/dL RDW 17.2 H (11.5-15.5) % Sodium 126 L 128 L (137-145) mmol/L Potassium 3.4 L (3.5-5.1) mmol/L Chloride 89 L 93 L (98-107) mmol/L BUN 43 H 32 H (7-17) mg/dL Glucose 102 H (74-99) mg/dL Assessment and Plan Plan: Assessment: 1. Acute kidney injury secondary to vasomotor nephropathy from hypovolemia. Improving with IV hydration. Creatinine 2.5 on admission and is 0.92 today. Baseline creatinine near 0.8 from April 2023. UA benign. 2. Chronic systolic CHF with ejection fraction of 45%. 3. Hypovolemic hyponatremia. TSH normal. Urine sodium 28 and urine osmolality 263. TSH normal. Sodium level gradually improving. Status post 3% saline 05/04, Sodium level stable 126 this morning. 4. Hypokalemia from poor intake and diuresis. Replaced. Better. 5. Anemia. Iron deficiency noted. 6. Morbid obesity. Plan: Follow-up repeat labs. Add IV iron. Continue to monitor renal function and urine output. Replace electrolytes as needed. Sodium improved to 128 after fluid bolus yesterday, continue with fluid restriction. If sodium fails to improve further will restart normal saline.
[2023-05-07] MEDS: POTASSIUM CHLORIDE ER 20 MEQ TAB.ER PO STA (10:45)
--- NOTE | 2023-05-07 12:36 | P.PN ---
Subjective Progress Note Date: 05/07/23 68 yo F with PMH of chronic diastolic CHF, CAD s/p stenting, morbid obesity, hx TIA who presented to the ED from [facility] with increasing lethargy and AMS. She was recently treated in the hospital for a CHF exacerbation and responded well to diuretics. She had been at [facility] for approximately 10 days. She was noted to be more confused and EMS was called. On presentation, vitals stable, WBC 17k, Hgb 9.1, Na 113, Cl 68, K 3.6, trop negative, BNP 170. WBC on recheck 9.2. CXR and CT brain no acute process. 05/05/2023 Sensorium significantly improved. Teary-eyed and expressing discontent with [facility] notified. Maintained on 3% saline with sodium improved, up to 124; drip has been discontinued. Potassium 4, bicarb 29, BUN 48, creatinine 0.95. afebrile. Continues on nebulized bronchodilators, Symbicort, maintaining O2 sat in the mid 90s on room air. 06/03/2023: Patient seen and evaluated bedside, serum sodium levels noted, does complain of rash at the site of stickers from telemetry. Requesting daily to be removed.. Waiting for discharge to rehab facility 05/07/2023: patient seen and evaluated at bedside. Patient complains of constipation, started on Colace, potassium replaced, serum sodium levels improving. Mentation has improved sodium 128 PHYSICAL EXAMINATION: GENERAL: The patient is alert and oriented x3, not in any acute distress. Well developed, well nourished. HEENT: Pupils are round and equally reacting to light. EOMI. CARDIOVASCULAR: S1 and S2 present. No murmurs, rubs, or gallops. PULMONARY: Chest is clear to auscultation, no wheezing or crackles. ABDOMEN: Soft, nontender, nondistended, normoactive bowel sounds. No palpable organomegaly. MUSCULOSKELETAL: No joint swelling or deformity. EXTREMITIES: No cyanosis, clubbing, or pedal edema. NEUROLOGICAL: Gross neurological examination did not reveal any focal deficits. SKIN: Rash noted at site of stickers from telemetry monitoring Objective - Vital Signs Vital signs: Vital Signs Temp 98.1 F 05/06/23 19:48 Pulse 75 02/03/24 19:48 Resp 18 05/06/23 19:48 BP 116/49 05/06/23 19:48 Pulse Ox 95 05/06/23 19:48 FiO2 Intake & Output 05/06/23 05/06/23 05/07/23 06:59 18:59 06:59 Intake Total 1190 640 240 Output Total 700 Balance 1190 -60 240 Weight 118 kg Intake: Oral 1190 640 240 Output: Urine 700 Other: Voiding Method Indwelling Catheter Indwelling Catheter - Labs CBC & Chem 7: 05/07/23 07:33 05/07/23 07:33 Labs: Abnormal Lab Results - Last 24 Hours (Table) 05/06/23 05/06/23 Range/Units 07:01 07:01 Sodium 126 L 126 L (137-145) mmol/L Chloride 89 L 89 L (98-107) mmol/L Carbon Dioxide 32 H (22-30) mmol/L BUN 43 H 43 H (7-17) mg/dL Magnesium 2.4 H (1.6-2.3) mg/dL Assessment and Plan Assessment: Assessment and plan Acute metabolic encephalopathy secondary to hyponatremia Severe hyponatremia Generalized debility Coronary artery disease Restless leg syndrome Chronic congestive heart failure History of TIA Morbid obesity * In regards to metabolic encephalopathy significant improvement in mentation, follow-up on basic metabolic panel * In regards to restless leg continue home regimen * Continue IV iron replacement for anemia * Regards to chronic medical issues continue home regimen including Eliquis * Plan to discharge to subacute rehab
[2023-05-07] MEDS: DOCUSATE 100 MG CAP PO SCH (17:46)
[2023-05-08] MEDS: MAGNESIUM SULFATE-D5W PMX 1 GM in DEXTROSE/WATER 1 100ML.BAG IVPB ONE (11:48)
--- NOTE | 2023-05-08 12:04 | P.PN ---
Subjective Patient is seen for follow-up for hyponatremia. Sodium increased to 128 yesterday. Labs are pending from today. Complaining of pain in the legs Tolerating oral intake. Objective - Vital Signs Vital signs: Vital Signs Temp 97.4 F L 05/08/23 07:52 Pulse 62 05/08/23 07:52 Resp 16 05/08/23 07:52 BP 122/67 05/08/23 07:52 Pulse Ox 91 L 05/08/23 07:52 FiO2 Intake & Output 05/07/23 05/08/23 05/08/23 18:59 06:59 18:59 Intake Total 100 Output Total 500 150 Balance 100 -500 -150 Intake: Intake, IV Titration 100 Amount Sodium Ferric Gluconat- 100 Sucrose 125 mg In Sodium Chloride 0.9% 100 ml @ 100 mls/hr IVPB DAILY [facility] Rx#:[id number] Output: Urine 500 150 Uretheral (Saleem) 150 Other: Voiding Method Indwelling Catheter Indwelling Catheter Indwelling Catheter - Exam Patient is awake, comfortable, no acute distress Examination of the heart S1 and S2 Examination of the lungs bilateral breath sounds are heard Abdomen is soft nontender Examination of lower extremity shows no significant edema. - Labs CBC & Chem 7: 05/07/23 07:33 05/07/23 07:33 Assessment and Plan Assessment: 1. Acute kidney injury secondary to vasomotor nephropathy from hypovolemia. Improving with IV hydration. Creatinine 2.5 on admission and is 0.8 today. Ba latriciaine creatinine near 0.8 from April 2023. UA benign. 2. Chronic systolic CHF with ejection fraction of 45%. 3. Hypovolemic hyponatremia. TSH normal. Urine sodium 28 and urine osmolality 263. TSH normal. Sodium level gradually improving. Status post 3% saline 05/04, Sodium level stable 128 yesterday. 4. Hypokalemia from poor intake and diuresis. Replaced. Better. 5. Anemia. Iron deficiency noted. 6. Morbid obesity. Plan: Follow-up on sodium from today. Encouraged him to increase oral intake particularly protein
--- NOTE | 2023-05-08 15:45 | P.PN ---
Subjective Progress Note Date: 05/08/23 I am seeing this patient in consultation today May 04, 2023 in the emergency room after she was sent in yesterday morning from [facility] chiefly for altered mental status, weakness, and low blood pressures. She was found to have severe hyponatremia, requiring 3% infusion, which requires ICU monitoring if continued. Patient is a 68-year-old white female with a plethora of medical comorbidities including coronary artery disease, CVA with right-sided weakness, PE/DVT, GI bleed, chronic anemia, hypertension, hyperlipidemia, obstructive sleep apnea without CPAP, hypothyroidism, morbid obesity with previous Alex-en-Y gastric bypass, Takotsubo syndrome, congestive heart failure, anxiety, depression. Patient was just discharged from the hospital on May 01 after being treated for an exacerbation of her congestive heart failure. She was aggressively diuresed and sent back to [facility]. Patient was sent back to the ER 2 days later after being found confused with low blood pressures by staff. No reported seizure-like activity. Patient is currently lying in bed, and is not cooperative with examination. She will not wake up, staff states that she was alert and talking and oriented x 3 just a minute ago. She is currently lying in bed with her eyes closed, on 2 L/min nasal cannula, in no acute distress. SpO2 is 98%. Brain CT did not show any acute intracranial process. There is small stable lacunar infarct. ABG not consistent with hypercapnic respiratory failure. Her sodium level was 113 on arrival, and initially treated with normal saline infusion. Nephrology wanted to start hypertonic saline, and for this reason a consult was placed for ICU management. 3% saline is infusing at 25 MLS per hour. Most recent sodium is up to 118, which is being checked e very 2 hours. 24-hour goal should be 119-121. CBC on arrival: WC count 17.3, hemoglobin 9.1, hematocrit 28.2, platelets 401. The rest of the patient's BMP includes a potassium 3.6 chloride 68, serum bicarb 28, BUN 67, creatinine 2.5, glucose 108. LFTs mildly elevated. Troponin less than 0.012. NT proBNP 174. Urine sodium 28. Osmolalities are pending. Blood pressures were borderline hypotensive, but have since normalized. Heart rhythm is normal sinus. afebrile. She will be monitored in the intensive care unit until correction of her severe hyponatremia. The patient is seen today May 05, 2023 in follow-up in the emergency department. She is currently sitting up on the stretcher. Awake and alert in no acute distress. She is maintaining O2 saturations in the 90s on room air. She has been afebrile. Hemodynamically stable. She was initially going to be admitted to the intensive care unit for 3% saline due to her hyponatremia her sodium is up to 125 and the drip is off. White count 9.8. Hemoglobin 8.9. Platelets 406. Potassium 4.2. Bicarb 33. BUN 46. Creatinine 0.92. AST 80. ALT 53. proBNP 206. He is on DuoNeb ventilations, Symbicort. Anticoagulated with Eliquis. The patient is seen today May 06, 2023 in follow-up on the regular medical floor. She is currently sitting up at the bedside. Awake and alert in no acute distress. She is maintaining good O2 saturation in the 90s on room air. No IV fluids. She is on fluid restrictions of 1500 mL/day. Her current sodium is 126. Potassium 3.5. Bicarb 29. BUN 43. Creatinine 0.95. Glucose 87. She is continue on DuoNeb inhalations, Symbicort. Anticoagulated with Eliquis. Receiving iron replacement. The patient is seen today May 07, 2023 and follow-up on the regular medical floor. She is currently resting in bed. Awake and alert in no acute distress. He is maintaining good O2 saturations in the 90s on room air. She has been afebrile. Hemodynamically stable. White count 7.5. Hemoglobin 8.7. Platelets 413. Most recent sodium 126. Today's sodium is pending. Remains on a fluid restriction of 1500 mL. Nephrology is following. She is continue on DuoNeb inhalations, Symbicort. Anticoagulated with Eliquis. On today's evaluation of 05/08/2023, the patient is doing well. The patient is on room air oxygen. She denies having any significant complaints. She is feeling weak. No nausea or vomiting. No emesis. No abdominal pain. No altered mentation.Her blood work shows improvement in the patient's sodium levels at 128 which is improved compared to yesterday the patient also has a potassium level 3.4, BUN to 32 mg from 0.8 and a white cell count of 7.5 with a hemoglobin of 8.7. Tolerating diet. Cultures have been negative. The patient has no other significant complaints. She is tolerating oral intake. Acute kidney injury has improved with fluid hydration. Creatinine peaked at 2.5 and dropped down to 0.8. UA was negative. Echocardiogram showed mild CHF with an ejection fraction of 45% which is well compensated at this point in time. Noted the patient has a combination of medical problems including coronary artery disease, previous CVA with right-sided weakness, previous history of DVT and pulmonary embolism and previous history of GI bleed and secondary anemia, hypertension, hyperlipidemia and obstructive sleep apnea without being on CPAP therapy. She has hypothyroidism. She is morbidly obese with a BMI of 40.7 and she has undergone previous Alex-en-Y gastric bypass surgery. CHF is mild and shows an ejection fraction of 45%. She has chronic anxiety and depression. She remains on anticoagulation with Eliquis. Objective - Vital Signs Vital signs: Vital Signs Temp 97.4 F L 05/08/23 07:52 Pulse 62 05/08/23 07:52 Resp 16 05/08/23 07:52 BP 122/67 05/08/23 07:52 Pulse Ox 91 L 05/08/23 07:52 FiO2 Intake & Output 05/07/23 05/08/23 05/08/23 18:59 06:59 18:59 Intake Total 100 Output Total 500 150 Balance 100 -500 -150 Intake: Intake, IV Titration 100 Amount Sodium Ferric Gluconat- 100 Sucrose 125 mg In Sodium Chloride 0.9% 100 ml @ 100 mls/hr IVPB DAILY [facility] Rx#:[id number] Output: Urine 500 150 Uretheral (Saleem) 150 Other: Voiding Method Indwelling Catheter Indwelling Catheter Indwelling Catheter - Exam GENERAL EXAM: Awake, alert 68-year-old female, resting in bed, on room air, in no acute distress. HEAD: Normocephalic and atraumatic EYES: Normal reaction of pupils, equal size. NOSE: Clear with pink turbinates. THROAT: No erythema or exudates. Dry mucous membranes. NECK: No masses, no JVD. CHEST: No chest wall deformity. LUNGS: Equal air entry with no crackles, wheeze, rhonchi or dullness. No conversational dyspnea. CVS: S1 and S2 normal with no audible murmur, regular rhythm. No extra heart sounds ABDOMEN: No hepatosplenomegaly, active bowel sounds, no guarding or rigidity. SPINE: No scoliosis or deformity SKIN: No rashes CENTRAL NERVOUS SYSTEM: No focal deficits, tone is normal in all 4 extremities. No seizure like activity noted. EXTREMITIES: There is no peripheral edema, clubbing, or cyanosis. Peripheral pulses are intact. Restless bilateral lower extremities. - Labs CBC & Chem 7: 05/07/23 07:33 05/07/23 07:33 Assessment and Plan Plan: Severe hyponatremia, possibly hypovolemic secondary recent aggressive diuretics. Most recent sodium 128 is improving. Nephrology on the case and the patient has a normal UA the time of admission. Creatinine peaked at 2.5 Hyponatremic encephalopathy, improving Acute kidney injury, likely prerenal, improving and creatinine is normalized down to 0.8 Hypothyroidism Hypertension History of PE/DVT, anticoagulated with Eliquis History of GI bleed Micorcytic, hypochromic anemia leukocytosis, no obvious infectious process Hyperlipidemia History of CVA/TIA with some right-sided weakness Coronary artery disease, with history of previous PCI/stent Chronic heart failure with reduced ejection fraction, stable Morbid obesity, status post Alex-en-Y gastric bypass surgery Obstructive sleep apnea, not on CPAP therapy Chronic pain syndrome Fibromyalgia Restless leg syndrome Plan: Monitor electrolytes Increase oral intake Provide incentive spirometer Nephrology is following Continue the current treatment plan Plan is for subacute rehab at discharge
[2023-05-08 15:47] LABS: Calcium 9.4 mg/dL (8.7-10.3); Carbon Dioxide 24.2 mmol/L (21.6-31.8); Chloride 94 mmol/L (96-109); Glucose 176 mg/dL (70-110); Potassium 3.9 mmol/L (3.5-5.5); Sodium 132 mmol/L (135-145)
--- NOTE | 2023-05-08 15:50 | P.PN ---
Subjective Progress Note Date: 05/08/23 H&P Date: 05/04/23 Chief Complaint: AMS Marlin Veras is a 68 yo F with PMH of chronic diastolic CHF, CAD s/p stenting, morbid obesity, hx TIA who presented to the ED from [facility] with increasing lethargy and AMS. She was recently treated in the hospital for a CHF exacerbation and responded well to diuretics. She had been at [facility] for approximately 10 days. She was noted to be more confused and EMS was called. On presentation, vitals stable, WBC 17k, Hgb 9.1, Na 113, Cl 68, K 3.6, trop negative, BNP 170. WBC on recheck 9.2. CXR and CT brain no acute process. 05/05/2023 Sensorium significantly improved. Teary-eyed and expressing discontent with [facility] notified. Maintained on 3% saline with sodium improved, up to 124; drip has been discontinued. Potassium 4, bicarb 29, BUN 48, creatinine 0.95. afebrile. Continues on nebulized bronchodilators, Symbicort, maintaining O2 sat in the mid 90s on room air. 05/08/2023 maintained on fluid restriction ,sodium pending. Standing up at bedside, denies chest pain, palpitations or shortness of breath. While sitting up at side of bed, rocking herself ,complaining of her restless legs, having a difficult time sitting still, fidgety, internal tremors. Reports she is not sleeping, pain medication not working and expresses fear of going to the subacute rehab. Patient wishes to proceed with [facility] instead of [facility] at discharge. Objective - Vital Signs Vital signs: Vital Signs Temp 98.0 F 05/08/23 14:24 Pulse 60 05/08/23 14:24 Resp 16 05/08/23 14:24 BP 128/77 05/08/23 14:24 Pulse Ox 90 L 05/08/23 14:24 FiO2 Intake & Output 05/07/23 05/08/23 05/08/23 18:59 06:59 18:59 Intake Total 100 Output Total 500 150 Balance 100 -500 -150 Intake: Intake, IV Titration 100 Amount Sodium Ferric Gluconat- 100 Sucrose 125 mg In Sodium Chloride 0.9% 100 ml @ 100 mls/hr IVPB DAILY [facility] Rx#:[id number] Output: Urine 500 150 Uretheral (Saleem) 150 Other: Voiding Method Indwelling Catheter Indwelling Catheter Indwelling Catheter - Exam Gen: morbidly obese, NAD, anxious HEENT: NC/AT, mmm Neck: supple, no JVD CV: RRR, no murmur. Pulses 2+ Lungs: Normal effort, clear throughout Abd: soft, nontender, non distended Neuro: Alert and oriented x 3, Skin: warm and dry - Labs CBC & Chem 7: 05/07/23 07:33 05/07/23 07:33 Assessment and Plan Assessment: Hyponatremia, hypovolemic secondary to recent diuresis Acute renal failure secondary to hypovolemia, resolved Metabolic encephalopathy secondary to the above, improved Akathisia Anemia, iron deficient, receiving Venofer Chronic systolic CHF CAD Restless leg syndrome Morbid obesity, BMI 41 Plan: Continue on current medication regimen, monitoring and symptomatic treatment. Labs pending .though [facility] liaison offered patient different [facility] locations, patient wishes to go to [facility] subacute rehab at discharge-social science teacher notified. PT/OT. Magnesium IV, as needed Vistaril ordered for tremors. psychiatry consulted regarding akathisia. OBRA completed, authorization in progress for subacute rehab. The impression and plan of care has been dictated as directed. : I performed a history and examination of this patient, discussed the same with the dictator. I agree with the dictator's note ,documented as a scribe. Any additional findings or plans will be noted.
[2023-05-08] MEDS: POTASSIUM CHLORIDE ER 20 MEQ TAB.ER PO STA (17:14)
[2023-05-08 18:05] LABS: Glucose,Whole Blood 107 mg/dL (70-110)
[2023-05-09] MEDS: hydrOXYzine pamoate 25 MG CAP PO PRN (03:46)
--- NOTE | 2023-05-09 11:17 | P.DS ---
Providers Date of admission: 05/03/23 15:22 Expected date of discharge: 05/09/23 Attending physician: Edd Lee MD Consults: 05/03/23 15:22 Consult Physician Urgent Consulting Provider: Thien Harper Consult Reason/Comments: acute hyponatremia, terence Do you want consulting provider notified?: Already Contacted 05/04/23 03:21 Consult Physician Stat Consulting Provider: Bhavik Alcantara Consult Reason/Comments: Hyponatremia Do you want consulting provider notified?: Yes, Notify in am 05/08/23 15:38 Consult Physician Routine Consulting Provider: Paresh Baker Consult Reason/Comments: akathisia Do you want consulting provider notified?: Yes Primary care physician: Edd Lee MD Hospital Course: Final Diagnoses: Hyponatremia, hypovolemic secondary to recent diuresis Acute renal failure secondary to hypovolemia, resolved Metabolic encephalopathy secondary to the above, improved Akathisia Anemia, iron deficient, receiving Venofer Chronic systolic CHF CAD Restless leg syndrome Morbid obesity, BMI 41 Hospital course:Marlin Veras is a 68 yo F with PMH of chronic diastolic CHF, CAD s/p stenting, morbid obesity, hx TIA who presented to the ED from [facility] with increasing lethargy and AMS. She was recently treated in the hospital for a CHF exacerbation and responded well to diuretics. She had been at [facility] for approximately 10 days. She was noted to be more confused and EMS was called. On presentation, vitals stable, WBC 17k, Hgb 9.1, Na 113, Cl 68, K 3.6, trop negative, BNP 170. WBC on recheck 9.2. CXR and CT brain no acute process. 05/05/2023 Sensorium significantly improved. Teary-eyed and expressing discontent with [facility] notified. Maintained on 3% saline with sodium improved, up to 124; drip has been discontinued. Potassium 4, bicarb 29, BUN 48, creatinine 0.95. afebrile. Continues on nebulized bronchodilators, Symbicort, maintaining O2 sat in the mid 90s on room air. 05/08/2023 maintained on fluid restriction ,sodium pending. Standing up at bedside, denies chest pain, palpitations or shortness of breath. While sitting up at side of bed, rocking herself ,complaining of her restless legs, having a difficult time sitting still, fidgety, internal tremors. Reports she is not sleeping, pain medication not working and expresses fear of going to the subacute rehab. Patient wishes to proceed with [facility] instead of [facility] at discharge. Significant clinical improvement. Yesterday's labs reflect a sodium 132, BUN 27, creatinine 0.9. Anxiety better controlled. Patient reports she feels much better. Denies chest pain, palpitations or shortness of breath. Patient will be discharged to [facility] subacute rehab., today in a stable condition with guarded prognosis pending final diuretic recommendations as per nephrology, clearance as per pulmonary. The impression and plan of care has been dictated as directed. : I performed a history and examination of this patient, discussed the same with the dictator. I agree with the dictator's note ,documented as a scribe. Any additional findings or plans will be noted. Patient Condition at Discharge: Stable Plan - Discharge Summary New Discharge Prescriptions: New Docusate [Colace] 100 mg PO BID cap Nystatin 100,000 Unit/gm Powd [Mycostatin Powder] 1 applic TOPICAL BID each Gabapentin [Neurontin] 200 mg PO TID #18 cap diphenhydrAMINE & Zinc Cream [Benadryl Cream] 1 applic TOPICAL BID each hydrOXYzine pamoate [Vistaril] 25 mg PO DAILY PRN cap PRN Reason: Anxiety Continue rOPINIRole HCL [Requip] 6 mg PO TID Apixaban [Eliquis] 5 mg PO BID Fluticasone/Umeclidin/Vilanter [Trelegy Ellipta 100-62.5-25] 1 puff INHA LATION RT-DAILY hydrOXYzine pamoate [Vistaril] 100 mg PO HS tiZANidine [Zanaflex] 4 mg PO BID Topiramate [Topamax] 100 mg PO BID HYDROcodone/APAP 10-325MG [[place] 10-325] 1 tab PO TID #9 tab Ipratropium-Albuterol Nebulize [Duoneb 0.5 mg-3 mg/3 ml Soln] 3 ml INHALATION RT-QID PRN PRN Reason: Shortness Of Breath Levothyroxine Sodium [Synthroid] 88 mcg PO DAILY Ergocalciferol [Vitamin D2 (1250 Mcg = 28306 Iu)] 1,250 mcg PO RALPH@2100 Albuterol Inhaler [Ventolin Hfa Inhaler] 1 - 2 puff INHALATION RT-Q6H PRN PRN Reason: Shortness Of Breath FLUoxetine HCL 40 mg PO DAILY Discontinued Butalb/APAP/Caff 50-325-40Mg [Fioricet 50-325-40] 1 tab PO Q6H PRN PRN Reason: Migraine Headache Diclofenac Potassium [Cataflam] 50 mg PO BID Furosemide [Lasix] 40 mg PO BID@0900,1600 #60 tab Pregabalin [Lyrica] 200 mg PO TID #9 cap Discharge Medication List rOPINIRole HCL [Requip] 6 mg PO TID 11/09/17 [History] Apixaban [Eliquis] 5 mg PO BID 01/07/22 [History] Ipratropium-Albuterol Nebulize [Duoneb 0.5 mg-3 mg/3 ml Soln] 3 ml INHALATION RT-QID PRN 07/08/22 [History] Ergocalciferol [Vitamin D2 (1250 Mcg = 54514 Iu)] 1,250 mcg PO RALPH@2100 10/10/22 [History] Levothyroxine Sodium [Synthroid] 88 mcg PO DAILY 10/10/22 [History] Albuterol Inhaler [Ventolin Hfa Inhaler] 1 - 2 puff INHALATION RT-Q6H PRN 04/26/23 [History] FLUoxetine HCL 40 mg PO DAILY 04/26/23 [History] Fluticasone/Umeclidin/Vilanter [Trelegy Ellipta 100-62.5-25] 1 puff INHALATION RT-DAILY 04/26/23 [History] Topiramate [Topamax] 100 mg PO BID 04/26/23 [History] hydrOXYzine pamoate [Vistaril] 100 mg PO HS 04/26/23 [History] tiZANidine [Zanaflex] 4 mg PO BID 04/26/23 [History] Docusate [Colace] 100 mg PO BID cap 05/09/23 [Rx] Gabapentin [Neurontin] 200 mg PO TID #18 cap 05/09/23 [Rx] HYDROcodone/APAP 10-325MG [[place] 10-325] 1 tab PO TID #9 tab 05/09/23 [Rx] Nystatin 100,000 Unit/gm Powd [Mycostatin Powder] 1 applic TOPICAL BID each 09/24 [Rx] diphenhydrAMINE & Zinc Cream [Benadryl Cream] 1 applic TOPICAL BID each 05/09/23 [Rx] hydrOXYzine pamoate [Vistaril] 25 mg PO DAILY PRN cap 05/09/23 [Rx] Follow up Appointment(s)/Referral(s): Edd Lee MD [Primary Care Provider] - 3 Days Activity/Diet/Wound Care/Special Instructions: [facility] subacute rehab CBC, BMP in 3 days Discharge Disposition: TRANSFER TO SNF/ECF
--- NOTE | 2023-05-09 11:47 | P.PN ---
Subjective Patient is seen for follow-up for hyponatremia. Sodium increased to 132 yesterday. Labs are pending from today. No significant complaints. Tolerating oral intake. Objective - Vital Signs Vital signs: Vital Signs Temp 98.4 F 05/09/23 08:36 Pulse 69 05/09/23 08:36 Resp 13 05/09/23 08:36 BP 138/51 05/09/23 08:36 Pulse Ox 97 05/09/23 08:36 FiO2 Intake & Output 05/08/23 05/09/23 05/09/23 18:59 06:59 18:59 Output Total 150 Balance -150 Output: Urine 150 Uretheral (Saleem) 150 Other: Voiding Method Indwelling Catheter Indwelling Catheter Toilet # Voids 2 1 1 # Bowel Movements 1 - Exam Patient is awake, comfortable, no acute distress Examination of the heart S1 and S2 Examination of the lungs bilateral breath sounds are heard Abdomen is soft nontender Examination of lower extremity shows no significant edema. - Labs CBC & Chem 7: 05/07/23 07:33 05/08/23 09:27 Labs: Abnormal Lab Results - Last 24 Hours (Table) 05/08/23 Range/Units 09:27 Sodium 132 L (135-145) mmol/L Chloride 94 L (96-109) mmol/L Anion Gap 13.80 H (4.00-12.00) mmol/L BUN/Creatinine Ratio 30.00 H (12.00-20.00) Ratio Glucose 176 H (70-110) mg/dL Assessment and Plan Assessment: 1. Acute kidney injury secondary to vasomotor nephropathy from hypovolemia. Creatinine 2.5 on admission and is 0.8 today. Baseline creatinine near 0.8 from April 2023. UA benign. 2. Chronic systolic CHF with ejection fraction of 45%. 3. Hypovolemic hyponatremia. TSH normal. Urine sodium 28 and urine osmolality 263. TSH normal. Sodium level gradually improving. Status post 3% saline 05/04, Sodium level stable and improved to 132. 4. Hypokalemia from poor intake and diuresis. Replaced. Better. 5. Anemia. Iron deficiency noted. 6. Morbid obesity. Plan: Monitor sodium as outpatient Maintain some degree of fluid restriction at least 1500 to 1800 mL/day Encouraged him to increase oral intake particularly protein
--- NOTE | 2023-05-09 11:49 | P.PN ---
Subjective Progress Note Date: 05/09/23 I am seeing this patient in consultation today May 04, 2023 in the emergency room after she was sent in yesterday morning from [facility] chiefly for altered mental status, weakness, and low blood pressures. She was found to have severe hyponatremia, requiring 3% infusion, which requires ICU monitoring if continued. Patient is a 68-year-old white female with a plethora of medical comorbidities including coronary artery disease, CVA with right-sided weakness, PE/DVT, GI bleed, chronic anemia, hypertension, hyperlipidemia, obstructive sleep apnea without CPAP, hypothyroidism, morbid obesity with previous Alex-en-Y gastric bypass, Takotsubo syndrome, congestive heart failure, anxiety, depression. Patient was just discharged from the hospital on May 01 after being treated for an exacerbation of her congestive heart failure. She was aggressively diuresed and sent back to [facility]. Patient was sent back to the ER 2 days later after being found confused with low blood pressures by staff. No reported seizure-like activity. Patient is currently lying in bed, and is not cooperative with examination. She will not wake up, staff states that she was alert and talking and oriented x 3 just a minute ago. She is currently lying in bed with her eyes closed, on 2 L/min nasal cannula, in no acute distress. SpO2 is 98%. Brain CT did not show any acute intracranial process. There is small stable lacunar infarct. ABG not consistent with hypercapnic respiratory failure. Her sodium level was 113 on arrival, and initially treated with normal saline infusion. Nephrology wanted to start hypertonic saline, and for this reason a consult was placed for ICU management. 3% saline is infusing at 25 MLS per hour. Most recent sodium is up to 118, which is being checked e very 2 hours. 24-hour goal should be 119-121. CBC on arrival: WC count 17.3, hemoglobin 9.1, hematocrit 28.2, platelets 401. The rest of the patient's BMP includes a potassium 3.6 chloride 68, serum bicarb 28, BUN 67, creatinine 2.5, glucose 108. LFTs mildly elevated. Troponin less than 0.012. NT proBNP 174. Urine sodium 28. Osmolalities are pending. Blood pressures were borderline hypotensive, but have since normalized. Heart rhythm is normal sinus. afebrile. She will be monitored in the intensive care unit until correction of her severe hyponatremia. The patient is seen today May 05, 2023 in follow-up in the emergency department. She is currently sitting up on the stretcher. Awake and alert in no acute distress. She is maintaining O2 saturations in the 90s on room air. She has been afebrile. Hemodynamically stable. She was initially going to be admitted to the intensive care unit for 3% saline due to her hyponatremia her sodium is up to 125 and the drip is off. White count 9.8. Hemoglobin 8.9. Platelets 406. Potassium 4.2. Bicarb 33. BUN 46. Creatinine 0.92. AST 80. ALT 53. proBNP 206. He is on DuoNeb ventilations, Symbicort. Anticoagulated with Eliquis. The patient is seen today May 06, 2023 in follow-up on the regular medical floor. She is currently sitting up at the bedside. Awake and alert in no acute distress. She is maintaining good O2 saturation in the 90s on room air. No IV fluids. She is on fluid restrictions of 1500 mL/day. Her current sodium is 126. Potassium 3.5. Bicarb 29. BUN 43. Creatinine 0.95. Glucose 87. She is continue on DuoNeb inhalations, Symbicort. Anticoagulated with Eliquis. Receiving iron replacement. The patient is seen today May 07, 2023 and follow-up on the regular medical floor. She is currently resting in bed. Awake and alert in no acute distress. He is maintaining good O2 saturations in the 90s on room air. She has been afebrile. Hemodynamically stable. White count 7.5. Hemoglobin 8.7. Platelets 413. Most recent sodium 126. Today's sodium is pending. Remains on a fluid restriction of 1500 mL. Nephrology is following. She is continue on DuoNeb inhalations, Symbicort. Anticoagulated with Eliquis. On today's evaluation of 05/08/2023, the patient is doing well. The patient is on room air oxygen. She denies having any significant complaints. She is feeling weak. No nausea or vomiting. No emesis. No abdominal pain. No altered mentation.Her blood work shows improvement in the patient's sodium levels at 128 which is improved compared to yesterday the patient also has a potassium level 3.4, BUN to 32 mg from 0.8 and a white cell count of 7.5 with a hemoglobin of 8.7. Tolerating diet. Cultures have been negative. The patient has no other significant complaints. She is tolerating oral intake. Acute kidney injury has improved with fluid hydration. Creatinine peaked at 2.5 and dropped down to 0.8. UA was negative. Echocardiogram showed mild CHF with an ejection fraction of 45% which is well compensated at this point in time. Noted the patient has a combination of medical problems including coronary artery disease, previous CVA with right-sided weakness, previous history of DVT and pulmonary embolism and previous history of GI bleed and secondary anemia, hypertension, hyperlipidemia and obstructive sleep apnea without being on CPAP therapy. She has hypothyroidism. She is morbidly obese with a BMI of 40.7 and she has undergone previous Alex-en-Y gastric bypass surgery. CHF is mild and shows an ejection fraction of 45%. She has chronic anxiety and depression. She remains on anticoagulation with Eliquis. On 05/09/2023, the patient is being seen for a follow-up.Patient is doing well. No specific complaints. No labs from today. Yesterday's labs showed improvement in sodium level and his sodium level was up to 132. The patient has no specific complaints. The patient is resting comfortably in bed. The plan is to discharge the patient to [facility] for subacute rehabilitation. The patient will be taken off her diuretics. The patient will use Trelegy Ellipta regarding her COPD. The patient also going to be on anticoagulation with Eliquis. Objective - Vital Signs Vital signs: Vital Signs Temp 98.3 F 05/09/23 01:20 Pulse 106 H 05/09/23 01:20 Resp 15 05/09/23 01:20 BP 100/65 05/09/23 01:20 Pulse Ox 92 L 05/09/23 01:20 FiO2 Intake & Output 05/08/23 05/09/23 05/09/23 18:59 06:59 18:59 Output Total 150 Balance -150 Output: Urine 150 Uretheral (Saleem) 150 Other: Voiding Method Indwelling Catheter Indwelling Catheter # Voids 2 1 - Exam GENERAL EXAM: Awake, alert 68-year-old female, resting in bed, on room air, in no acute distress. HEAD: Normocephalic and atraumatic EYES: Normal reaction of pupils, equal size. NOSE: Clear with pink turbinates. THROAT: No erythema or exudates. Dry mucous membranes. NECK: No masses, no JVD. CHEST: No chest wall deformity. LUNGS: Equal air entry with no crackles, wheeze, rhonchi or dullness. No conversational dyspnea. CVS: S1 and S2 normal with no audible murmur, regular rhythm. No extra heart sounds ABDOMEN: No hepatosplenomegaly, active bowel sounds, no guarding or rigidity. SPINE: No scoliosis or deformity SKIN: No rashes CENTRAL NERVOUS SYSTEM: No focal deficits, tone is normal in all 4 extremities. No seizure like activity noted. EXTREMITIES: There is no peripheral edema, clubbing, or cyanosis. Peripheral pulses are intact. Restless bilateral lower extremities. - Labs CBC & Chem 7: 05/07/23 07:33 05/08/23 09:27 Labs: Abnormal Lab Results - Last 24 Hours (Table) 05/08/23 Range/Units 09:27 Sodium 132 L (135-145) mmol/L Chloride 94 L (96-109) mmol/L Anion Gap 13.80 H (4.00-12.00) mmol/L BUN/Creatinine Ratio 30.00 H (12.00-20.00) Ratio Glucose 176 H (70-110) mg/dL Assessment and Plan Plan: Severe hyponatremia, possibly hypovolemic secondary recent aggressive diuretics. The sodium level came up to 132 from yesterday. Nephrology on the case and the patient has a normal UA the time of admission. Creatinine peaked at 2.5 Hyponatremic encephalopathy improved Acute kidney injury, likely prerenal, improving and creatinine is normalized down to 0.9 Hypothyroidism Hypertension History of PE/DVT, anticoagulated with Eliquis History of GI bleed Micorcytic, hypochromic anemia leukocytosis, no obvious infectious process Hyperlipidemia History of CVA/TIA with some right-sided weakness Coronary artery disease, with history of previous PCI/stent Chronic heart failure with reduced ejection fraction, stable Morbid obesity, status post Alex-en-Y gastric bypass surgery Obstructive sleep apnea, not on CPAP therapy Chronic pain syndrome Fibromyalgia Restless leg syndrome COPD Plan: Patient is to be discharged to [facility] and the patient is headed to subacute rehabilitation at the [facility] on the [facility] on an outpatient basis Resume anticoagulation Hold diuretics Monitor electrolytes and renal function on outpatient basis = Plan is for subacute rehab at discharge
[2023-05-09] MEDS ORDERED: hydrOXYzine pamoate 25 MG CAP PO PRN (15:46)
[2023-05-09 15:47] LABS: African American GFR (CKD) 89 (>60 ml/min/1.73 sqM); Anion Gap 6 mmol/L; Blood Urea Nitrogen 26 mg/dL (7-17); Calcium 9.4 mg/dL (8.4-10.2); Carbon Dioxide 22 mmol/L (22-30); Chloride 102 mmol/L (98-107); Glucose 112 mg/dL (74-99); Non-African American GFR(CKD) 77 (>60 ml/min/1.73 sqM); Sodium 130 mmol/L (137-145)
[2023-05-09] MEDS ORDERED: PROPRANOLOL 10 MG TAB PO PRN (15:48)
--- NOTE | 2023-05-09 15:53 | P.CN ---
Psychiatric Consult - . Consult date: 05/09/23 Consult:: 05/09/23 13:47 IDENTIFYING DATA: This patient is a 68 y/o female lives in assisted living. Retired, 3 daughters, . REASON FOR REFERRAL: Psychiatry was consulted for delirium HISTORY OF PRESENT ILLNESS: The patient presented to the hospital on 05/03 from [facility] in [facility] for confusion and low blood pressure. Patient states that she is chronically depressed. States she used to see Dr. Chacko in the past. Patient states she has not had any psychiatric follow-up since. Patient agreeable to increase prozac dose due to it "not working" for her, and she states that "none of them work" . she states that she is still experiencing depression at this time and also anxiety. claims that she has restlessness mainly in her legs. she appears to be improved in terms of her mentation and able to answer questions appropriately and directble. states her sleep and appetite are on and off. At this time patient denies any suicidal or homical ideations, intent or plan. Patient denies any auditory, visual hallucinations and denies any paranoia or delusions. Patients denies recreational drugs, cigarettes, alcohol. PAST PSYCHIATRIC HISTORY: Patient has a a history of depression, anxiety. Patient is on psychiatric medication, Prozac. Patient has had previous psychiatric hospitalizations, when she was 27. Patient denies any current psychiatric outpatient follow-up, used to follow up with Dr Chacko.Patient denies any history of suicide attempts in the past. PAST MEDICAL HISTORY: per ED note. ALLERGIES: as per EMR. CHEMICAL DEPENDENCY HISTORY: as per HPI. FAMILY PSYCHIATRIC/SUBSTANCE USE HISTORY: grandfather completed suicide, siblings have bipolar SOCIAL HISTORY: Patient was born and raised in [place], [place]. . Has 3 daughters. 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 No legal troubles or history. MENTAL STATUS EXAM: General Appearance: Patient appears to be stated age is alert, pleasant, and cooperative. Patient appears to have fair hygiene and grooming wearing hospital gown with fair eye contact. Behavior: Patient is calmly lying in bed without any agitated behavior. appropriate. mildly tearful at times. Speech: Patient's speech is fluent and nonpressured. Mood/Affect: Patient reports their mood is "depressed sometimes", affect is congruent Suicidality/Homicidality: Patient denies having any suicidal or homicidal ideation intent or plan. Perceptions: Patient denies any visual hallucinations and denies any auditory hallucinations Though content/process: There is no evidence of any delusional thought content and thought process is linear and goal-directed. Memory and concentration: AOX3, grossly intact for the purposes of this session. Can spell "WORLD" backwards Judgment and insight: fair IMPRESSIONS: delirium secondary to electrolytes, toxic-metabolic Depressive disorder, unspecified Anxiety disorder, unspecified PLAN: -At this time patient DOES NOT meet criteria for inpatient psychiatric admission. -Delirium precautions recommended with patient including - avoiding use of narcotics and WINDOW DRESSER sedatives, limit anticholinergic medications when possible, frequent re-orientation, minimize use of restraints, open window shades during the day and close them at night -Would recommend the following medication changes/additions: Inrease Prozac 60 mg p.o. daily, for depression. vistaril prn for anxiety. start Inderal 10 mg p.o. 3 times daily as needed for anxiety/restlessness. added trazodone 50 mg qhs for sleep/mood instead of scheduled vistaril (as vistaril has higher anticholinergic burden and may leave patient vulnerable to another delirium episode). -hot iron worker to provide patient with outpatient mental health/psychiatry resources for appropriate follow up upon discharge. -Communicated plan to patient's nurse -Psychiatry will sign off at this time -Please contact with any questions. 05/09/23 15:49
[2023-05-09] MEDS: traZODone HCL 50 MG TAB PO SCH (21:08)
--- NOTE | 2023-05-10 10:16 | P.DS ---
Providers Date of admission: 05/03/23 15:22 Expected date of discharge: 05/10/23 Attending physician: Edd Lee MD Consults: 05/03/23 15:22 Consult Physician Urgent Consulting Provider: Thien Harper Consult Reason/Comments: acute hyponatremia, terence Do you want consulting provider notified?: Already Contacted 05/04/23 03:21 Consult Physician Stat Consulting Provider: Bhavik Alcantara Consult Reason/Comments: Hyponatremia Do you want consulting provider notified?: Yes, Notify in am 05/08/23 15:38 Consult Physician Routine Consulting Provider: Paresh Baker Consult Reason/Comments: akathisia Do you want consulting provider notified?: Yes Primary care physician: Edd Lee MD Hospital Course: Final diagnosis Hyponatremia, hypovolemic secondary to recent diuresis Acute renal failure secondary to hypovolemia, improving Metabolic encephalopathy secondary to the above, improved Akathisia Anemia, iron deficient, receiving Venofer Chronic systolic CHF CAD Generalized weakness with gait dysfunction Restless leg syndrome Morbid obesity, BMI 41 GI prophylaxis DVT prophylaxis Full code Discharge disposition Patient is being discharged in a stable condition with guarded prognosis to [facility]. Patient will follow-up with Dr. Edd Lee in the outpatient setting upon discharge. Patient is to continue with holding diuretics for now and outpatient follow-up with nephrology with repeat labs as scheduled. Total time taken is greater than 35 minutes. Hospital course 68 yo F with PMH of chronic diastolic CHF, CAD s/p stenting, morbid obesity, hx TIA who presented to the ED from [facility] with increasing lethargy and AMS. She was recently treated in the hospital for a CHF exacerbation and responded well to diuretics. She had been at [facility] for approximately 10 days. She was noted to be more confused and EMS was called. On presentation, vitals stable, WBC 17k, Hgb 9.1, Na 113, Cl 68, K 3.6, trop negative, BNP 170. WBC on recheck 9.2. CXR and CT brain no acute process. 05/05/2023 Sensorium significantly improved. Teary-eyed and expressing discontent with [facility] notified. Maintained on 3% saline with sodium improved, up to 124; drip has been discontinued. Potassium 4, bicarb 29, BUN 48, creatinine 0.95. afebrile. Continues on nebulized bronchodilators, Symbicort, maintaining O2 sat in the mid 90s on room air. 05/08/2023 maintained on fluid restriction ,sodium pending. Standing up at bedside, denies chest pain, palpitations or shortness of breath. While sitting up at side of bed, rocking herself ,complaining of her restless legs, having a difficult time sitting still, fidgety, internal tremors. Reports she is not sleeping, pain medication not working and expresses fear of going to the subacute rehab. Patient wishes to proceed with [facility] instead of [facility] at discharge. 05/10/2023 Patient is seen in follow-up today insurance authorization requiring peer to peer review which has been approved for continued PT/OT therapy at [facility]. Patient will be going to [facility] on the [place] for continued PT therapy. Yesterday sodium was 130 and patient's diuretics currently being held. Patient to have follow-up labs in the outpatient setting to monitor kidney functions and electrolytes in the next 2 to 3 days. Recommend holding diuretics until follow-up labs. Patient has had significant clinical improvement and reporting to feeling improved and has been cleared by consultations. Please refer to other consultation notes for further HPI. Currently no reports of chest pain, shortness of breath, or palpitations. Patient is afebrile. No reports of nausea or vomiting and patient is tolerating diet. Patient will be going to [facility] on [facility] today. Guarded prognosis Physical exam: Gen: This is a 68-year-old female who is awake, alert and oriented, well- developed, well-nourished, elderly appearing, morbidly obese HEENT: Head is atraumatic, normocephalic. Pupils equal, round. Sclerae is anicteric. NECK: Supple. No JVD. No lymphadenopathy. No thyromegaly. LUNGS: Diminished breath sounds bilaterally with some scattered rhonchi. No intercostal retractions. HEART: S1, S2 are muffled ABDOMEN: Soft. Obese. Bowel sounds are present. No masses. No tenderness. EXTREMITIES: No pedal edema. No calf tenderness. NEUROLOGICAL: Patient is awake, alert and oriented x3. Cranial nerves 2 through 12 are grossly intact. Diffusely weak Please refer to medication reconciliation sheet for a list of medications. The impression and plan of care has been dictated by Ruba Vuong, Nurse Practitioner as directed. Dr. Darius MD I have performed a history and examination and MDM of this patient, discussed the same with the dictator, and agree with the dictator's assessment and plan as written ,documented as a scribe. Based on total visit time, I have performed more than 50% of the visit. Patient Condition at Discharge: Stable Plan - Discharge Summary New Discharge Prescriptions: New Docusate [Colace] 100 mg PO BID cap Nystatin 100,000 Unit/gm Powd [Mycostatin Powder] 1 applic TOPICAL BID each Gabapentin [Neurontin] 200 mg PO TID #18 cap traZODone HCL [Desyrel] 50 mg PO HS tab diphenhydrAMINE & Zinc Cream [Benadryl Cream] 1 applic TOPICAL BID each hydrOXYzine pamoate [Vistaril] 25 mg PO DAILY PRN cap PRN Reason: Anxiety Propranolol [Inderal] 10 mg PO TID PRN tab PRN Reason: anxiety/restlessness FLUoxetine HCL [PROzac] 60 mg PO DAILY cap Continue rOPINIRole HCL [Requip] 6 mg PO TID Apixaban [Eliquis] 5 mg PO BID Fluticasone/Umeclidin/Vilanter [Trelegy Ellipta 100-62.5-25] 1 puff INHALATION RT-DAILY hydrOXYzine pamoate [Vistaril] 100 mg PO HS tiZANidine [Zanaflex] 4 mg PO BID Topiramate [Topamax] 100 mg PO BID HYDROcodone/APAP 10-325MG [[place] 10-325] 1 tab PO TID #9 tab Ipratropium-Albuterol Nebulize [Duoneb 0.5 mg-3 mg/3 ml Soln] 3 ml INHALATION RT-QID PRN PRN Reason: Shortness Of Breath Levothyroxine Sodium [Synthroid] 88 mcg PO DAILY Ergocalciferol [Vitamin D2 (1250 Mcg = 09902 Iu)] 1,250 mcg PO RALPH@2100 Albuterol Inhaler [Ventolin Hfa Inhaler] 1 - 2 puff INHALATION RT-Q6H PRN PRN Reason: Shortness Of Breath Discontinued Butalb/APAP/Caff 50-325-40Mg [Fioricet 50-325-40] 1 tab PO Q6H PRN PRN Reason: Migraine Headache Diclofenac Potassium [Cataflam] 50 mg PO BID FLUoxetine HCL 40 mg PO DAILY Furosemide [Lasix] 40 mg PO BID@0900,1600 #60 tab Pregabalin [Lyrica] 200 mg PO TID #9 cap Discharge Medication List rOPINIRole HCL [Requip] 6 mg PO TID 11/09/17 [History] Apixaban [Eliquis] 5 mg PO BID 01/07/22 [History] Ipratropium-Albuterol Nebulize [Duoneb 0.5 mg-3 mg/3 ml Soln] 3 ml INHALATION RT-QID PRN 07/08/22 [History] Ergocalciferol [Vitamin D2 (1250 Mcg = 61944 Iu)] 1,250 mcg PO RALPH@2100 10/10/22 [History] Levothyroxine Sodium [Synthroid] 88 mcg PO DAILY 10/10/22 [History] Albuterol Inhaler [Ventolin Hfa Inhaler] 1 - 2 puff INHALATION RT-Q6H PRN [History] Fluticasone/Umeclidin/Vilanter [Trelegy Ellipta 100-62.5-25] 1 puff INHALATION RT-DAILY 04/26/23 [History] Topiramate [Topamax] 100 mg PO BID 04/26/23 [History] hydrOXYzine pamoate [Vistaril] 100 mg PO HS 04/26/23 [History] tiZANidine [Zanaflex] 4 mg PO BID 04/26/23 [History] Docusate [Colace] 100 mg PO BID cap 05/09/23 [Rx] Gabapentin [Neurontin] 200 mg PO TID #18 cap 05/09/23 [Rx] HYDROcodone/APAP 10-325MG [[place] 10-325] 1 tab PO TID #9 tab 05/09/23 [Rx] Nystatin 100,000 Unit/gm Powd [Mycostatin Powder] 1 applic TOPICAL BID each 05/09/23 [Rx] diphenhydrAMINE & Zinc Cream [Benadryl Cream] 1 applic TOPICAL BID each 05/09/23 [Rx] hydrOXYzine pamoate [Vistaril] 25 mg PO DAILY PRN cap 05/09/23 [Rx] FLUoxetine HCL [PROzac] 60 mg PO DAILY cap 05/10/23 [Rx] Propranolol [Inderal] 10 mg PO TID PRN tab 05/10/23 [Rx] traZODone HCL [Desyrel] 50 mg PO HS tab 05/10/23 [Rx] Follow up Appointment(s)/Referral(s): Edd Lee MD [Primary Care Provider] - 3 Days Mechelle Thapa MD [STAFF PHYSICIAN] - 1 Week Activity/Diet/Wound Care/Special Instructions: [facility] subacute rehab CBC, BMP in 3 days Follow-up with nephrology outpatient Follow-up primary care provider on discharge Continue taking medications as prescribed and hold diuretics for now until follow-up Continue fluid restriction 1500-1800ml daily Repeat sodium in 2-3 days post discharge Discharge Disposition: TRANSFER TO SNF/ECF
[2023-05-10] MEDS: FLUoxetine HCL 20 MG CAP PO SCH (11:22)
--- NOTE | 2023-05-10 11:41 | P.PN ---
Subjective Patient is seen for follow-up for hyponatremia. Sodium increased to 130 yesterday. Labs are pending from today. No significant complaints. Tolerating oral intake. Objective - Vital Signs Vital signs: Vital Signs Temp 97.4 F L 05/10/23 07:36 Pulse 72 05/10/23 07:36 Resp 13 05/10/23 07:36 BP 115/73 05/10/23 07:36 Pulse Ox 99 05/10/23 07:36 FiO2 Intake & Output 05/09/23 05/10/23 05/10/23 18:59 06:59 18:59 Intake Total 100 Balance 100 Intake: Oral 100 Other: Voiding Method Toilet Toilet # Voids 1 1 # Bowel Movements 1 - Exam Patient is awake, comfortable, no acute distress Examination of the heart S1 and S2 Examination of the lungs bilateral breath sounds are heard Abdomen is soft nontender Examination of lower extremity shows no significant edema. - Labs CBC & Chem 7: 05/07/23 07:33 05/09/23 15:01 Labs: Abnormal Lab Results - Last 24 Hours (Table) 05/09/23 Range/Units 15:01 Sodium 130 L (137-145) mmol/L BUN 26 H (7-17) mg/dL Glucose 112 H (74-99) mg/dL Assessment and Plan Assessment: 1. Acute kidney injury secondary to vasomotor nephropathy from hypovolemia. Creatinine 2.5 on admission and is 0.8 today. Baseline creatinine near 0.8 from April 2023. UA benign. 2. Chronic systolic CHF with ejection fraction of 45%. 3. Hypovolemic hyponatremia. TSH normal. Urine sodium 28 and urine osmolality 263. TSH normal. Sodium level gradually improving. Status post 3% saline 05/04, Sodium level stable and improved to 130. Can resume home dose of oral Lasix 4. Hypokalemia from poor intake and diuresis. Replaced. Better. 5. Anemia. Iron deficiency noted. 6. Morbid obesity. Plan: Monitor sodium as outpatient Resume home dose of oral Lasix Maintain some degree of fluid restriction at least 1500 to 1800 mL/day Encouraged him to increase oral intake particularly protein
[2023-05-10 13:44] VITALS: BP 92/65; PULSE 94; RESP 17; TEMP 97.2
[2023-05-10 15:14] VITALS: BMI 40.7
--- NOTE | 2023-05-11 21:35 | CDI ---
Documentation Clarification Form Date: 05/11/2023 09:12:31 PM From: Asuncion Ang Phone: Admit Date: 05/03/2023 03:22:00 PM Patient Name: Marlin Veras Visit Number: [id number] Discharge Date: 05/10/2023 04:15:00 PM ATTENTION: The Clinical Documentation Specialists (CDI) and [facility] Coding Staff appreciate your assistance in clarifying documentation. Please respond to the clarification below the line at the bottom and electronically sign. The CDI & [facility] Coding staff will review the response and follow-up if needed. Please note: Queries are made part of the Legal Health Record. If you have any questions, please contact the author of this message via ITS. Dr. Edd Lee Your patient has the documented diagnosis of CHF. Additional information regarding the type of CHF is requested. Chronic systolic CHFwith ejection fraction of 45% Consult 05/04 PMH ofchronic diastolic CHF H&P Note 05/04 History/Risk Factors: 68yo F, hypovolemic,hyponatremia, ATN, CCHF, hypokalemia, RENETTA, morbid obesity, metabolic encephalopathy, CAD, Hx CVA, Hx DVT/PE Clinical Indicators: VS/Pulse OX: 95-98 BNP: 170 Echoc: mildCHFwith an ejection fraction of 45% which is well compensated at this point in time. Chest x ray: The heart size is mildly prominent. Treatment: Recently treated in the hospital for aCHFexacerbation and responded well to diuretics. In your professional opinion, can you please clarify the type of CHF if known? [ X] Chronic Systolic Heart Failure (reduced EF) [ ] Chronic Diastolic Heart Failure (preserved EF) [ ] Chronic Systolic & Diastolic Heart Failure [ ] Other, please specify [ ] Unable to determine (Template Last Revised: May 2020) MTDD
== END 2023-05-10 16:15 | DRG 640 ==
LOC: EC 11:40 → 3SCARD 15:22 → 2SICU 05-04 14:36 → 3SCARD 05-04 22:10 → 2SICU 05-04 22:56 → 4SSUR 05-05 08:52 → 5NMEDONC 05-05 14:06
PROVIDERS: ADMIT Family Medicine; ATTEND Family Medicine
DX: E87.1 Hypo-osmolality and hyponatremia (principal); G93.41 Metabolic encephalopathy; N17.0 Acute kidney failure with tubular necrosis; I63.81 Other cerebral infarction due to occlusion or stenosis of small artery; I69.351 Hemiplegia and hemiparesis following cerebral infarction affecting right dominant side; I50.22 Chronic systolic (congestive) heart failure; Z68.41 Body mass index [BMI] 40.0-44.9, adult; E87.3 Alkalosis; I27.20 Pulmonary hypertension, unspecified; E66.01 Morbid (severe) obesity due to excess calories; I11.0 Hypertensive heart disease with heart failure; G25.71 Drug induced akathisia; I95.9 Hypotension, unspecified; G25.81 Restless legs syndrome; E03.9 Hypothyroidism, unspecified; F32.A Depression, unspecified; I69.328 Other speech and language deficits following cerebral infarction; G47.33 Obstructive sleep apnea (adult) (pediatric); M79.7 Fibromyalgia; I25.10 Atherosclerotic heart disease of native coronary artery without angina pectoris; D50.9 Iron deficiency anemia, unspecified; H91.90 Unspecified hearing loss, unspecified ear; I25.2 Old myocardial infarction; Z79.01 Long term (current) use of anticoagulants; Z95.5 Presence of coronary angioplasty implant and graft; E87.6 Hypokalemia; E78.5 Hyperlipidemia, unspecified; G89.4 Chronic pain syndrome; K59.00 Constipation, unspecified; E86.1 Hypovolemia; T50.2X5A Adverse effect of carbonic-anhydrase inhibitors, benzothiadiazides and other diuretics, initial encounter; D72.829 Elevated white blood cell count, unspecified; F41.9 Anxiety disorder, unspecified; Z96.611 Presence of right artificial shoulder joint; Z96.612 Presence of left artificial shoulder joint; Z79.890 Hormone replacement therapy; Z79.899 Other long term (current) drug therapy; Z82.49 Family history of ischemic heart disease and other diseases of the circulatory system; Z86.711 Personal history of pulmonary embolism; Z86.718 Personal history of other venous thrombosis and embolism; Z79.51 Long term (current) use of inhaled steroids; Z91.048 Other nonmedicinal substance allergy status; Z88.1 Allergy status to other antibiotic agents; Z88.2 Allergy status to sulfonamides; Z88.8 Allergy status to other drugs, medicaments and biological substances; Z88.6 Allergy status to analgesic agent; Z98.84 Bariatric surgery status; Z11.52 Encounter for screening for COVID-19; Z81.8 Family history of other mental and behavioral disorders; Z87.19 Personal history of other diseases of the digestive system
CPT/HCPCS: 36415; 36600; 70450; 71046; 80048; 80053; 81003; 82533; 82570; 82728; 82805; 83540; 83550; 83735; 83880; 83930; 83935; 84132; 84295; 84300; 84443; 84484; 85025; 85027; 85610; 85730; 87636; 93005; 94640; 96361; 96365; 96367; 99285

== ENCOUNTER 2023-07-20 01:49 | Inpatient (IN) | payer MEDICARE ==
--- NOTE | 2023-07-20 03:25 | XR ---
EXAM: XR Chest, 2 Views CLINICAL HISTORY: ITS.REASON XR Reason: difficulty breathing TECHNIQUE: Frontal and lateral views of the chest. COMPARISON: No relevant prior studies available. FINDINGS: Lungs: No consolidation or mass. Pleural space: No effusion. Heart: No cardiomegaly. Bones/joints: No acute findings. IMPRESSION: No acute cardiopulmonary process.
[2023-07-20 03:36] LABS: Anisocytosis Moderate; Basophils % (A) 0 %; Eosinophils # (A) 0.2 k/uL (0-0.7); Eosinophils % (A) 3 %; HCT 38.5 % (34.0-46.0); HGB 11.3 gm/dL (11.4-16.0); Hypochromasia Marked; Lymphocytes # (A) 1.8 k/uL (1.0-4.8); Lymphocytes % (A) 26 %; MCH 24.7 pg (25.0-35.0); MCHC 29.5 g/dL (31.0-37.0); MCV 83.7 fL (80.0-100.0); Mean Platelet Volume 7.3; Microcytosis Slight; Monocytes # (A) 0.6 k/uL (0-1.0); Monocytes % (A) 8 %; Neutrophils # (A) 4.4 k/uL (1.3-7.7); Neutrophils % (A) 61 %; Platelet Count 378 k/uL (150-450); RDW 20.5 % (11.5-15.5); WBC 7.1 k/uL (3.8-10.6)
[2023-07-20 03:51] LABS: ALT 17 U/L (4-34); AST 30 U/L (14-36); African American GFR (CKD) >90 (>60 ml/min/1.73 sqM); Albumin 4.2 g/dL (3.5-5.0); Alkaline Phosphatase 115 U/L (38-126); Anion Gap 10 mmol/L; Blood Urea Nitrogen 33 mg/dL (7-17); Calcium 8.9 mg/dL (8.4-10.2); Carbon Dioxide 22 mmol/L (22-30); Chloride 107 mmol/L (98-107); Glucose 84 mg/dL (74-99); INR 0.8 (<1.2); Magnesium 2.4 mg/dL (1.6-2.3); Non-African American GFR(CKD) >90 (>60 ml/min/1.73 sqM); Partial Thromboplastin Time 22.9 sec (22.0-30.0); Potassium 4.6 mmol/L (3.5-5.1); Prothrombin Time 9.4 sec (10.0-12.5); Sodium 139 mmol/L (137-145); Total Bilirubin 0.4 mg/dL (0.2-1.3); Total Protein 7.2 g/dL (6.3-8.2)
[2023-07-20 03:58] LABS: NT-Pro-B-Type Natriuretic Pept 118 pg/mL
--- NOTE | 2023-07-20 04:51 | ED ---
SOB HPI - General Chief Complaint: Shortness of Breath Stated Complaint: CHF, Edema in Legs, Difficulty Breathing Time Seen by Provider: 07/20/23 03:13 Source: patient, RN notes reviewed, old records reviewed, Caregiver Mode of arrival: EMS Limitations: no limitations - History of Present Illness Initial Comments: This is a 68-year-old female to the ER for evaluation today. Patient [place] for evaluation of weakness and failure to thrive with significant lower extremity edema leg edema and shortness of breath. No chest pain no travel history no sick contacts history of similar MD Complaint: shortness of breath, anxiety (Lower extremity edema) Severity: severe Severity scale (1-10): 9 Consistency: constant Improves With: nothing Worsens With: nothing Known History Of: congestive heart failure Context: anxiety, recent illness Associated Symptoms: denies other symptoms - Related Data Home Medications Medication Instructions Recorded Confirmed Apixaban [Eliquis] 5 mg PO BID 01/07/22 07/20/23 Ipratropium-Albuterol Nebulize 3 ml INHALATION RT-QID PRN 07/08/22 07/20/23 [Duoneb 0.5 mg-3 mg/3 ml Soln] Ergocalciferol [Vitamin D2 (1250 1,250 mcg PO RALPH 10/10/22 07/20/23 Mcg = 17630 Iu)] Levothyroxine Sodium [Synthroid] 88 mcg PO DAILY 10/10/22 07/20/23 Albuterol Inhaler [Ventolin Hfa 1 - 2 puff INHALATION RT-Q6H PRN 04/26/23 07/20/23 Inhaler] Fluticasone/Umeclidin/Vilanter 1 puff INHALATION RT-DAILY 04/26/23 07/20/23 [Trelegy Ellipta 100-62.5-25] ARIPiprazole [Abilify] 10 mg PO HS 07/20/23 07/20/23 Butalb/APAP/Caff 50-325-40Mg 1 tab PO BID PRN 07/20/23 07/20/23 [Fioricet 50-325-40] Losartan [Cozaar] 50 mg PO DAILY 07/20/23 07/20/23 Nystatin 100,000 Unit/gm Powd 1 applic TOPICAL TID 07/20/23 07/20/23 [Mycostatin Powder] Vortioxetine Hydrobromide 20 mg PO DAILY 07/20/23 07/20/23 [Trintellix] Previous Rx's Medication Instructions Recorded FLUoxetine HCL [PROzac] 60 mg PO DAILY cap 05/10/23 Acetaminophen Tab [Tylenol] 650 mg PO Q6HR PRN tab 07/25/23 Gabapentin [Neurontin] 800 mg PO TID #9 tab 07/25/23 HYDROcodone/APAP 10-325MG [[place] 1 tab PO TID #9 tab 07/25/23 10-325] Lactulose [Cephulac] 10 gm PO TID ml 07/25/23 Pantoprazole [Protonix] 40 mg PO DAILY tab 07/25/23 Topiramate [Topamax] 100 mg PO BID #6 tab 07/25/23 Torsemide [Demadex] 40 mg PO DAILY tab 07/25/23 rOPINIRole HCL [Requip] 6 mg PO 1500 #6 tablet 07/25/23 rOPINIRole HCL [Requip] 6 mg PO 2100 #6 tab 07/25/23 rOPINIRole HCL [Ropinirole HCl] 3 mg PO DAILY #3 tab 07/25/23 Allergies Allergy/AdvReac Type Severity Reaction Status Date / Time adhesive tape Allergy Swelling Verified 07/20/23 09:06 cefprozil [From Cefzil] Allergy Unknown Verified 07/20/23 09:06 cyclobenzaprine Allergy Rash/Hives Verified 07/20/23 09:06 [From Flexeril] Sulfa (Sulfonamide Allergy Rash/Hives Verified 07/20/23 09:06 Antibiotics) valdecoxib [From Bextra] Allergy Unknown Verified 07/20/23 09:06 metaxalone [From Skelaxin] AdvReac Nausea & Verified 07/20/23 09:06 Vomiting Review of Systems ROS Statement: Those systems with pertinent positive or pertinent negative responses have been documented in the HPI. ROS Other: All systems not noted in ROS Statement are negative. 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 Alex-en-Y gastric bypass for morbid obesity, has home o2 that was prescribed in 2019 but currently does not use Last Myocardial Infarction Date:: 2002 History of Any Multi-Drug Resistant Organisms: None Reported Past Surgical History: Bariatric Surgery, Hernia Repair, Hysterectomy, Joint Replacement, Orthopedic Surgery, Tubal Ligation Additional Past Surgical History / Comment(s): 10/19/19 PCI with stent, EGDs, colonoscopy/benign polyps, gastric bypass with revision, ventral and hiatal hernia repair, bladder suspension, R rotator curr repair/revision, L knee arthroscopy, rectocele, perinealplasty, 07/05/20 left shoulder replacement, 11/11/21 right shoulder replacement Past Anesthesia/Blood Transfusion Reactions: Motion Sickness Past Psychological History: Anxiety, Depression Smoking Status: Never smoker Past Alcohol Use History: Rare Past Drug Use History: None Reported - Past Family History Mother Family Medical History: Coronary Artery Disease (CAD), Eye Disorder Additional Family Medical History / Comment(s): Mother is 91 yrs old Father Family Medical History: Myocardial Infarction (NV) Additional Family Medical History / Comment(s): Father of a massive NV at the age of 53 yrs. General Exam Limitations: no limitations General appearance: obese Head exam: Present: atraumatic, normocephalic, normal inspection Eye exam: Present: normal appearance, PERRL, EOMI. Absent: scleral icterus, conjunctival injection, periorbital swelling ENT exam: Present: normal exam, mucous membranes moist Neck exam: Present: normal inspection. Absent: tenderness, meningismus, lymphadenopathy Respiratory exam: Present: normal lung sounds bilaterally. Absent: respiratory distress, wheezes, rales, rhonchi, stridor Cardiovascular Exam: Present: regular rate, normal rhythm, normal heart sounds. Absent: systolic murmur, diastolic murmur, rubs, gallop, clicks GI/Abdominal exam: Present: soft, normal bowel sounds. Absent: distended, tenderness, guarding, rebound, rigid Extremities exam: Present: normal inspection, full ROM, normal capillary refill. Absent: tenderness, pedal edema, joint swelling, calf tenderness Back exam: Present: normal inspection Neurological exam: Present: alert, oriented X3, CN II-XII intact Psychiatric exam: Present: normal affect, normal mood Skin exam: Present: warm, dry, intact, normal color. Absent: rash Course Vital Signs 07/20/23 07/20/23 07/20/23 02:12 05:26 06:17 Temperature 97.8 F Pulse Rate 61 65 68 Respiratory 20 18 18 Rate Blood Pressure 149/68 126/75 116/57 O2 Sat by Pulse 100 97 95 Oximetry 07/20/23 07/20/23 07/20/23 09:28 11:00 16:12 Temperature 97.8 F Pulse Rate 61 65 70 Respiratory 18 18 18 Rate Blood Pressure 89/45 118/76 125/92 O2 Sat by Pulse 100 98 100 Oximetry 07/20/23 17:34 Temperature Pulse Rate 72 Respiratory 18 Rate Blood Pressure 108/51 O2 Sat by Pulse 96 Oximetry - Reevaluation(s) Reevaluation #1: 07/20/23 05:49 Medical records reviewed Reevaluation #2: 07/20/23 05:49 Patient symptoms unchanged Reevaluation #3: 07/20/23 05:49 Patient informed of results and questions answered Reevaluation #4: Was pt. sent in by a medical professional or institution (, PA, [facility] [employer], urgent care, hospital, or retirement...) When possible be specific @ -no Did you speak to anyone other than the patient for history (EMS, parent, family, police, friend...)? What history was obtained from this source @ -no Did you review nursing and triage notes (agree or disagree)? Why? @ -agree Are old charts reviewed (outside hosp., previous admission, EMS record, old EKG, old radiological studies, urgent care reports/EKG's, retirement records)? Report findings @ -yes Differential Diagnosis (chest pain, altered mental status, abdominal pain women, abdominal pain men, vaginal bleeding, weakness, fever, dyspnea, syncope, headache, dizziness, GI bleed, back pain, seizure, CVA, palpatations, mental health, musculoskeletal)? @ -prior EKG interpreted by me (3pts min.). @ -yes X-rays interpreted by me (1pt min.). @ -yes negative for acute disease CT interpreted by me (1pt min.). @ -no U/S interpreted by me (1pt. min.). @ -no What testing was considered but not performed or refused? (CT, X-rays, U/S, labs)? Why? @ -none What meds were considered but not given or refused? Why? @ -none Did you discuss the management of the patient with other professionals (professionals i.e. , PA, [employer] [employer], lab, RT, psych nurse, social secretary, merit system director, teacher, airfield services officer, transplant case manager)? Give summary @ -no Was smoking cessation discussed for >3mins.? @ -no Was critical care preformed (if so, how long)? @ -no Were there social determinants of health that impacted care today? How? (Homelessness, low income, unemployed, alcoholism, drug addiction, transportation, low edu. Level, literacy, decrease access to med. care, prison, rehab)? @ -none Was there de-escalation of care discussed even if they declined (Discuss DNR or withdrawal of care, Hospice)? DNR status @ -no What co-morbidities impacted this encounter? (DM, HTN, Smoking, COPD, CAD, Cancer, CVA, ARF, Chemo, Hep., AIDS, mental health diagnosis, sleep apnea, morbid obesity)? @ -none Was patient admitted / discharged? Hospital course, mention meds given and route, prescriptions, significant lab abnormalities, going to OR and other pertinent info. @ - 68 female to ER for significant shortness of breath especially with exertion patient does not do any significant exercise significant lower extremity edema with significant symptoms of CHF, and overall generalized swelling and edema. Patient be admitted for diuresis Admitted Undiagnosed new problem with uncertain prognosis? @ -no Drug Therapy requiring intensive monitoring for toxicity (Heparin, Nitro, Insulin, Cardizem)? @ -no Were any procedures done? @ -no Diagnosis/symptom? @ -CHF bilateral leg edema acute kidney injury Acute, or Chronic, or Acute on Chronic? @ -Acute Uncomplicated (without systemic symptoms) or Complicated (systemic symptoms)? @ -Complicated Side effects of treatment? @ -no Exacerbation, Progression, or Severe Exacerbation? @ -exacerbation Poses a threat to life or bodily function? How? (Chest pain, USA, NV, pneumonia, PE, COPD, DKA, ARF, appy, cholecystitis, CVA, Diverticulitis, Homicidal, Suicidal, threat to staff... and all critical care pts) @ -yes significant comorbid conditions and extremes of age Reevaluation #5: Differential Weakness: Hypoglycemia, shock, sepsis, hyponatremia, anemia, infection, NV, ETOH, adverse medicine reaction, overdose, stroke, this is not meant to be an all-inclusive list. - Consultations Consultation #1: Spoke with Dr. Pond who agrees to admit this patient Medical Decision Making - Medical Decision Making 68 female to ER for significant shortness of breath especially with exertion patient does not do any significant exercise significant lower extremity edema with significant symptoms of CHF, and overall generalized swelling and edema. Patient be admitted for diuresis - Lab Data Result diagrams: 07/25/23 04:54 07/25/23 04:54 Lab Results 07/20/23 07/20/23 07/20/23 Range/Units 02:20 02:20 02:20 WBC 7.1 (3.8-10.6) k/uL RBC 4.60 (3.80-5.40) m/uL Hgb 11.3 L (11.4-16.0) gm/dL Hct 38.5 (34.0-46.0) % MCV 83.7 (80.0-100.0) fL MCH 24.7 L (25.0-35.0) pg MCHC 29.5 L (31.0-37.0) g/dL RDW 20.5 H (11.5-15.5) % Plt Count 378 (150-450) k/uL MPV 7.3 Immature Gran % (Auto) % Absolute Nucleated RBC % Neutrophils % 61 % Lymphocytes % 26 % Monocytes % 8 % Eosinophils % 3 % Basophils % 0 % Immature Gran # (0.00-0.04) X 10*3/uL Neutrophils # 4.4 (1.3-7.7) k/uL Lymphocytes # 1.8 (1.0-4.8) k/uL Monocytes # 0.6 (0-1.0) k/uL Eosinophils # 0.2 (0-0.7) k/uL Basophils # 0.0 (0-0.2) k/uL NRBC/100 WBC Diff (0.00-0.01) X 10*3/uL Hypochromasia Marked Anisocytosis Moderate Microcytosis Slight PT 9.4 L (10.0-12.5) sec INR 0.8 (<1.2) APTT 22.9 (22.0-30.0) sec Sodium 139 (137-145) mmol/L Potassium 4.6 (3.5-5.1) mmol/L Chloride 107 (98-107) mmol/L Carbon Dioxide 22 (22-30) mmol/L Anion Gap 10 mmol/L BUN 33 H (7-17) mg/dL Creatinine 0.66 (0.52-1.04) mg/dL Est GFR (CKD-EPI) (>=60) Est GFR (CKD-EPI)AfAm >90 (>60 ml/min/1.73 sqM) Est GFR (CKD-EPI)NonAf >90 (>60 ml/min/1.73 sqM) BUN/Creatinine Ratio (12.00-20.00) Ratio Glucose 84 (74-99) mg/dL Plasma Lactic Acid Steve (0.7-2.0) mmol/L Calcium 8.9 (8.4-10.2) mg/dL Magnesium 2.4 H (1.6-2.3) mg/dL Total Bilirubin 0.4 (0.2-1.3) mg/dL AST 30 (14-36) U/L ALT 17 (4-34) U/L Alkaline Phosphatase 115 (38-126) U/L Troponin I (0.000-0.034) ng/mL NT-Pro-B Natriuret Pep 118 pg/mL Total Protein 7.2 (6.3-8.2) g/dL Albumin 4.2 (3.5-5.0) g/dL Globulin Albumin/Globulin Ratio 07/20/23 07/20/23 07/21/23 Range/Units 02:20 02:20 06:39 WBC 6.0 (3.8-10.6) k/uL RBC 3.79 L (3.80-5.40) m/uL Hgb 9.4 L D (11.4-16.0) gm/dL Hct 31.7 L (34.0-46.0) % MCV 83.7 (80.0-100.0) fL MCH 24.8 L (25.0-35.0) pg MCHC 29.7 L (31.0-37.0) g/dL RDW 20.2 H (11.5-15.5) % Plt Count 323 (150-450) k/uL MPV 8.2 Immature Gran % (Auto) % Absolute Nucleated RBC % Neutrophils % 56 % Lymphocytes % 29 % Monocytes % 9 % Eosinophils % 3 % Basophils % 1 % Immature Gran # (0.00-0.04) X 10*3/uL Neutrophils # 3.4 (1.3-7.7) k/uL Lymphocytes # 1.7 (1.0-4.8) k/uL Monocytes # 0.5 (0-1.0) k/uL Eosinophils # 0.2 (0-0.7) k/uL Basophils # 0.0 (0-0.2) k/uL NRBC/100 WBC Diff (0.00-0.01) X 10*3/uL Hypochromasia Marked Anisocytosis Moderate Microcytosis Slight PT (10.0-12.5) sec INR (<1.2) APTT (22.0-30.0) sec Sodium (137-145) mmol/L Potassium (3.5-5.1) mmol/L Chloride (98-107) mmol/L Carbon Dioxide (22-30) mmol/L Anion Gap mmol/L BUN (7-17) mg/dL Creatinine (0.52-1.04) mg/dL Est GFR (CKD-EPI) (>=60) Est GFR (CKD-EPI)AfAm (>60 ml/min/1.73 sqM) Est GFR (CKD-EPI)NonAf (>60 ml/min/1.73 sqM) BUN/Creatinine Ratio (12.00-20.00) Ratio Glucose (74-99) mg/dL Plasma Lactic Acid Steve 1.1 (0.7-2.0) mmol/L Calcium (8.4-10.2) mg/dL Magnesium (1.6-2.3) mg/dL Total Bilirubin (0.2-1.3) mg/dL AST (14-36) U/L ALT (4-34) U/L Alkaline Phosphatase (38-126) U/L Troponin I <0.012 (0.000-0.034) ng/mL NT-Pro-B Natriuret Pep pg/mL Total Protein (6.3-8.2) g/dL Albumin (3.5-5.0) g/dL Globulin Albumin/Globulin Ratio 07/21/23 07/22/23 07/24/23 Range/Units 07:17 05:45 04:56 WBC 8.54 (3.8-10.6) k/uL RBC 4.11 (3.80-5.40) m/uL Hgb 10.2 L (11.4-16.0) gm/dL Hct 34.9 L (34.0-46.0) % MCV 84.9 (80.0-100.0) fL MCH 24.8 L (25.0-35.0) pg MCHC 29.2 L (31.0-37.0) g/dL RDW 21.7 H (11.5-15.5) % Plt Count 374 (150-450) k/uL MPV 9.6 Immature Gran % (Auto) 0.40 % Absolute Nucleated RBC 0 % Neutrophils % 70.6 % Lymphocytes % 16.5 % Monocytes % 9.8 % Eosinophils % 2.2 % Basophils % 0.5 % Immature Gran # 0.03 (0.00-0.04) X 10*3/uL Neutrophils # 6.03 (1.3-7.7) k/uL Lymphocytes # 1.41 (1.0-4.8) k/uL Monocytes # 0.84 (0-1.0) k/uL Eosinophils # 0.19 (0-0.7) k/uL Basophils # 0.04 (0-0.2) k/uL NRBC/100 WBC Diff 0 (0.00-0.01) X 10*3/uL Hypochromasia Anisocytosis Microcytosis PT (10.0-12.5) sec INR (<1.2) APTT (22.0-30.0) sec Sodium 139 141 (137-145) mmol/L Potassium 4.4 4.4 (3.5-5.1) mmol/L Chloride 104 106 (98-107) mmol/L Carbon Dioxide 21.7 24.4 (22-30) mmol/L Anion Gap 13.30 H 10.60 mmol/L BUN 31.9 H 37.4 H (7-17) mg/dL Creatinine 0.9 0.8 (0.52-1.04) mg/dL Est GFR (CKD-EPI) 69 80 (>=60) Est GFR (CKD-EPI)AfAm (>60 ml/min/1.73 sqM) Est GFR (CKD-EPI)NonAf (>60 ml/min/1.73 sqM) BUN/Creatinine Ratio 35.44 H 46.75 H (12.00-20.00) Ratio Glucose 102 89 (74-99) mg/dL Plasma Lactic Acid Steve (0.7-2.0) mmol/L Calcium 8.6 L 8.7 (8.4-10.2) mg/dL Magnesium (1.6-2.3) mg/dL Total Bilirubin (0.2-1.3) mg/dL AST (14-36) U/L ALT (4-34) U/L Alkaline Phosphatase (38-126) U/L Troponin I (0.000-0.034) ng/mL NT-Pro-B Natriuret Pep pg/mL Total Protein (6.3-8.2) g/dL Albumin (3.5-5.0) g/dL Globulin Albumin/Globulin Ratio 07/24/23 Range/Units 04:56 WBC (3.8-10.6) k/uL RBC (3.80-5.40) m/uL Hgb (11.4-16.0) gm/dL Hct (34.0-46.0) % MCV (80.0-100.0) fL MCH (25.0-35.0) pg MCHC (31.0-37.0) g/dL RDW (11.5-15.5) % Plt Count (150-450) k/uL MPV Immature Gran % (Auto) % Absolute Nucleated RBC % Neutrophils % % Lymphocytes % % Monocytes % % Eosinophils % % Basophils % % Immature Gran # (0.00-0.04) X 10*3/uL Neutrophils # (1.3-7.7) k/uL Lymphocytes # (1.0-4.8) k/uL Monocytes # (0-1.0) k/uL Eosinophils # (0-0.7) k/uL Basophils # (0-0.2) k/uL NRBC/100 WBC Diff (0.00-0.01) X 10*3/uL Hypochromasia Anisocytosis Microcytosis PT (10.0-12.5) sec INR (<1.2) APTT (22.0-30.0) sec Sodium Cancelled (137-145) mmol/L Potassium Cancelled (3.5-5.1) mmol/L Chloride Cancelled (98-107) mmol/L Carbon Dioxide Cancelled (22-30) mmol/L Anion Gap Cancelled mmol/L BUN Cancelled (7-17) mg/dL Creatinine Cancelled (0.52-1.04) mg/dL Est GFR (CKD-EPI) Cancelled (>=60) Est GFR (CKD-EPI)AfAm Cancelled (>60 ml/min/1.73 sqM) Est GFR (CKD-EPI)NonAf Cancelled (>60 ml/min/1.73 sqM) BUN/Creatinine Ratio Cancelled (12.00-20.00) Ratio Glucose Cancelled (74-99) mg/dL Plasma Lactic Acid Steve (0.7-2.0) mmol/L Calcium Cancelled (8.4-10.2) mg/dL Magnesium 2.5 H (1.6-2.3) mg/dL Total Bilirubin Cancelled (0.2-1.3) mg/dL AST Cancelled (14-36) U/L ALT Cancelled (4-34) U/L Alkaline Phosphatase Cancelled (38-126) U/L Troponin I (0.000-0.034) ng/mL NT-Pro-B Natriuret Pep pg/mL Total Protein Cancelled (6.3-8.2) g/dL Albumin Cancelled (3.5-5.0) g/dL Globulin Cancelled Albumin/Globulin Ratio Cancelled - EKG Data -: EKG Interpreted by Me (EKG is sinus 64 DC 215 QRS 76 QTc 415) - Radiology Data Radiology results: report reviewed (Chest x-ray is negative for acute disease), image reviewed Disposition Clinical Impression: Acute renal insufficiency, CHF (congestive heart failure), Weakness, Expiratory stridor, Bilateral leg edema Disposition: ADMITTED IP TO THIS HOSP Condition: Stable Time of Disposition: 05:45
[2023-07-20] MEDS: FUROSEMIDE 10 MG/ML 4 ML VIAL IV SCH (06:21)
[2023-07-20] MEDS: GABAPENTIN 400 MG CAP PO SCH (09:47)
[2023-07-20] MEDS: TOPIRAMATE 100 MG TAB PO SCH (09:47)
[2023-07-20] MEDS: FLUoxetine HCL 20 MG CAP PO SCH (09:47)
[2023-07-20] MEDS: APIXABAN 5 MG TAB PO SCH (09:47)
[2023-07-20] MEDS: LOSARTAN 50 MG TAB PO SCH (09:47)
[2023-07-20] MEDS: HYDROcodone/APAP 10-325MG 1 EACH TAB PO SCH (09:52)
--- NOTE | 2023-07-20 14:28 | P.CRDCN ---
History of Present Illness Consult date: 07/20/23 Consult reason: congestive heart failure History of present illness: History of present illness: This is a 68-year-old female patient of Dr. Haseeb Charles with past medical history of coronary artery disease, hypertension, hyperlipidemia, history of CVA, obstructive sleep apnea not able to tolerate device, bilateral PE and DVT, morbid obesity status post Alex-en-Y. We have been asked to evaluate the patient for CHF. Patient is seen today in the emergency center waiting for a bed on the observation unit. Patient states that she developed shortness of breath along with lower extremity edema over the past week. She states she has increased shortness of breath with trying to lay down and feels like she is being smothered for the past couple of days. She has gained 14 pounds since last . She has been started on IV Lasix 40 mg every 8 hours and has been diuresing well. She states his swelling and shortness of breath are improved. EKG sinus rhythm with no acute ST changes Chest x-ray: No acute process WBC 7.1, hemoglobin 9.3, platelet count 378. INR 0.8. Electrolytes are normal. BUN 33 creatinine 0.66. Blood sugar 84. Magnesium 2.4. Troponin negative x 1. proBNP 118. Home cardiac medications: Eliquis 5 mg twice daily, losartan 50 mg daily, Demadex 20 mg daily, also on levothyroxine 88 mcg daily. Echocardiogram performed 10/11/2022 revealed mild LV systolic dysfunction with EF of 40 to 45%, mild MR, mild TR. Cardiac catheterization 10/18/[address] KAMILAH Vick revealed diagonal 80 to 90% stenosis. End-diastolic pressure of 22 mmHg and without any gradient across aortic valve. Patient subsequently underwent PCI of diagonal branch with a drug-eluting stent. Review Of Systems: At the time of my evaluation: Constitutional: No fever, no chills. No weakness, fatigue or lethargy. EENT: No headache. No dizziness. Lungs: + shortness of breath, cough, no sputum production. No wheezing. Cardiovascular: No chest pain, + lower extremity edema. No palpitations. No paroxysmal nocturnal dyspnea. + orthopnea. No lightheadedness or dizziness. No syncopal episodes. Abdominal: No abdominal pain. No nausea, vomiting. No diarrhea. No constipation. No bloody or tarry stools. Musculoskeletal: No myalgias. No muscle weakness, no frequent falls. Integumentary: No wounds. No rash. No unusual bruising. Neurologic: No aphasia. No facial droop. No change in mentation. Physical examination: Gen: This is a morbidly obese 68-year-old female. She appears to be in no acute distress VS: reviewed HEENT: Head is atraumatic, normocephalic. Pupils equal, round. Sclerae is anicteric. NECK: Supple. No JVD. LUNGS: Diminished bilaterally no wheezing.. No intercostal retractions. HEART: Regular rate and rhythm. No murmur. ABDOMEN: Soft No tenderness. EXTREMITIES: 2+ pedal edema. No calf tenderness. NEUROLOGICAL: Patient is awake, alert and oriented x3. Assessment: Acute on chronic systolic heart failure History of coronary artery disease with previous stent of the diagonal branch Hypertension Hyperlipidemia History of CVA Obstructive sleep apnea not using CPAP History of bilateral PE and DVT Chronic anemia Plan: Continue patient's home cardiac medications Continue Lasix 40 mg IV every 8 hours Monitor SUSANNA, daily weights, electrolytes and renal function Obtain 2-D echocardiogram and Doppler study to assess cardiac structure and function Further recommendations to follow based upon clinical course Thank you kindly for this consultation. Nurse practitioner note has been reviewed, I agree with documented findings and plan of care. Patient was seen and examined. Past Medical History Past Medical History: Asthma, Coronary Artery Disease (CAD), Chest Pain / Angina, Heart Failure, COPD, CVA/TIA, Deep Vein Thrombosis (DVT), Fibromyalgia, GERD/Reflux, GI Bleed, Hearing Disorder / Deafness, Hyperlipidemia, Hypertension, Memory Impairment, Myocardial Infarction (LA), Osteoarthritis (OA), Pneumonia, Pulmonary Embolus (PE), Renal Disease, Respiratory Disorder, Seizure Disorder, Skin Disorder, Sleep Apnea/CPAP/BIPAP, Thyroid Disorder Additional Past Medical History / Comment(s): 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 Alex-en-Y gastric bypass for morbid obesity, has home o2 that was prescribed in 2019 but currently does not use Last Myocardial Infarction Date:: 2002 History of Any Multi-Drug Resistant Organisms: None Reported Past Surgical History: Bariatric Surgery, Hernia Repair, Hysterectomy, Joint Replacement, Orthopedic Surgery, Tubal Ligation Additional Past Surgical History / Comment(s): 10/19/19 PCI with stent, EGDs, colonoscopy/benign polyps, gastric bypass with revision, ventral and hiatal hernia repair, bladder suspension, R rotator curr repair/revision, L knee arthroscopy, rectocele, perinealplasty, 07/05/20 left shoulder replacement, 11/11/21 right shoulder replacement Past Anesthesia/Blood Transfusion Reactions: Motion Sickness Past Psychological History: Anxiety, Depression Smoking Status: Never smoker Past Alcohol Use History: Rare Past Drug Use History: None Reported - Past Family History Mother Family Medical History: Coronary Artery Disease (CAD), Eye Disorder Additional Family Medical History / Comment(s): Mother is 91 yrs old Father Family Medical History: Myocardial Infarction (LA) Additional Family Medical History / Comment(s): Father of a massive LA at the age of 53 yrs. Medications and Allergies Home Medications Medication Instructions Recorded Confirmed Type rOPINIRole HCL [Requip] 3 mg PO DAILY 11/09/17 07/20/23 History Apixaban [Eliquis] 5 mg PO BID 01/07/22 07/20/23 History Ipratropium-Albuterol Nebulize 3 ml INHALATION RT-QID PRN 07/08/22 07/20/23 History [Duoneb 0.5 mg-3 mg/3 ml Soln] Ergocalciferol [Vitamin D2 (1250 1,250 mcg PO RALPH 10/10/22 07/20/23 History Mcg = 97550 Iu)] Levothyroxine Sodium [Synthroid] 88 mcg PO DAILY 10/10/22 07/20/23 History Albuterol Inhaler [Ventolin Hfa 1 - 2 puff INHALATION RT-Q6H PRN 04/26/23 07/20/23 History Inhaler] Fluticasone/Umeclidin/Vilanter 1 puff INHALATION RT-DAILY 04/26/23 07/20/23 History [Trelegy Ellipta 100-62.5-25] Topiramate [Topamax] 100 mg PO BID 04/26/23 07/20/23 History hydrOXYzine pamoate [Vistaril] 50 mg PO TID PRN 04/26/23 07/20/23 History tiZANidine [Zanaflex] 4 mg PO BID 04/26/23 07/20/23 History HYDROcodone/APAP 10-325MG [[place] 1 tab PO TID #9 tab 05/09/23 07/20/23 Rx 10-325] FLUoxetine HCL [PROzac] 60 mg PO DAILY cap 05/10/23 07/20/23 Rx ARIPiprazole [Abilify] 10 mg PO HS 07/20/23 07/20/23 History Butalb/APAP/Caff 50-325-40Mg 1 tab PO BID PRN 07/20/23 07/20/23 History [Fioricet 50-325-40] Gabapentin [Neurontin] 800 mg PO TID 07/20/23 07/20/23 History Losartan [Cozaar] 50 mg PO DAILY 07/20/23 07/20/23 History Nystatin 100,000 Unit/gm Powd 1 applic TOPICAL TID 07/20/23 07/20/23 History [Mycostatin Powder] Pregabalin [Lyrica] 200 mg PO TID 07/20/23 07/20/23 History Torsemide [Demadex] 20 mg PO DAILY 07/20/23 07/20/23 History Vortioxetine Hydrobromide 20 mg PO DAILY 07/20/23 07/20/23 History [Trintellix] rOPINIRole HCL [Requip] 6 mg PO HS 07/20/23 07/20/23 History Allergies Allergy/AdvReac Type Severity Reaction Status Date / Time adhesive tape Allergy Swelling Verified 07/20/23 09:06 cefprozil [From Cefzil] Allergy Unknown Verified 07/20/23 09:06 cyclobenzaprine Allergy Rash/Hives Verified 07/20/23 09:06 [From Flexeril] Sulfa (Sulfonamide Allergy Rash/Hives Verified 07/20/23 09:06 Antibiotics) valdecoxib [From Bextra] Allergy Unknown Verified 07/20/23 09:06 metaxalone [From Skelaxin] AdvReac Nausea & Verified 07/20/23 09:06 Vomiting Physical Exam Vitals: Vital Signs Temp Pulse Resp BP Pulse Ox 07/20/23 11:00 65 18 118/76 98 07/20/23 09:28 61 18 89/45 100 07/20/23 06:17 68 18 116/57 95 07/20/23 05:26 65 18 126/75 97 07/20/23 02:12 97.8 F 61 20 149/68 100 Intake and Output 07/19/23 07/20/23 07/20/23 22:59 06:59 14:59 Other: Weight 124.284 kg Results 07/20/23 02:20 07/20/23 02:20 Cardiac Enzymes 07/20/23 07/20/23 Range/Units 02:20 02:20 AST 30 (14-36) U/L Troponin I <0.012 (0.000-0.034) ng/mL Coagulation 07/20/23 Range/Units 02:20 PT 9.4 L (10.0-12.5) sec APTT 22.9 (22.0-30.0) sec CBC 07/20/23 Range/Units 02:20 WBC 7.1 (3.8-10.6) k/uL RBC 4.60 (3.80-5.40) m/uL Hgb 11.3 L (11.4-16.0) gm/dL Hct 38.5 (34.0-46.0) % Plt Count 378 (150-450) k/uL Comprehensive Metabolic Panel 07/20/23 Range/Units 02:20 Sodium 139 (137-145) mmol/L Potassium 4.6 (3.5-5.1) mmol/L Chloride 107 (98-107) mmol/L Carbon Dioxide 22 (22-30) mmol/L BUN 33 H (7-17) mg/dL Creatinine 0.66 (0.52-1.04) mg/dL Glucose 84 (74-99) mg/dL Calcium 8.9 (8.4-10.2) mg/dL AST 30 (14-36) U/L ALT 17 (4-34) U/L Alkaline Phosphatase 115 (38-126) U/L Total Protein 7.2 (6.3-8.2) g/dL Albumin 4.2 (3.5-5.0) g/dL Current Medications Generic Name Dose Route Start Last Admin Trade Name Tracy PRN Reason Stop Dose Admin Hydrocodone Bitart/Acetaminophen 1 each 07/20/23 10:00 07/20/23 09:52 Hydrocodone/Apap 10-325mg 1 Each Tab PO 1 each TID AMBIKA Administration Apixaban 5 mg 07/20/23 10:00 07/20/23 09:47 Apixaban 5 Mg Tab PO 5 mg BID AMBIKA Administration Protocol Aripiprazole 10 mg 07/20/23 21:00 Aripiprazole 10 Mg Tab PO HS AMBIKA Fluoxetine HCl 60 mg 07/20/23 10:00 07/20/23 09:47 Fluoxetine Hcl 20 Mg Cap PO Not Given DAILY AMBIKA Furosemide 40 mg 07/20/23 06:00 07/20/23 06:21 Furosemide 10 Mg/Ml 4 Ml Vial IV 40 mg Q8H AMBIKA Administration Gabapentin 800 mg 07/20/23 10:00 07/20/23 09:47 Gabapentin 400 Mg Cap PO 800 mg TID AMBIKA Administration Levothyroxine Sodium 88 mcg 07/21/23 06:30 Levothyroxine 88 Mcg Tab PO DAILY@0630 AMBIKA Losartan Potassium 50 mg 07/20/23 10:00 07/20/23 09:47 Losartan 50 Mg Tab PO 50 mg DAILY AMBIKA Administration Ropinirole HCl 3 mg 07/21/23 09:00 Ropinirole Hcl 1 Mg Tab PO DAILY AMBIKA Ropinirole HCl 6 mg 07/20/23 21:00 Ropinirole Hcl 1 Mg Tab PO HS AMBIKA Topiramate 100 mg 07/20/23 10:00 07/20/23 09:47 Topiramate 100 Mg Tab PO 100 mg BID AMBIKA Administration Intake and Output 07/19/23 07/20/23 07/20/23 22:59 06:59 14:59 Other: Weight 124.284 kg 07/20/23 02:20 07/20/23 02:20
--- NOTE | 2023-07-20 18:45 | P.HPIM ---
History of Present Illness H&P Date: 07/20/23 Chief Complaint: Progressive shortness of breath This is a 68-year-old female with past medical history significant for coronary artery disease, CVA with right-sided weakness, PE/DVT, GI bleed, hypertension, hyperlipidemia, obstructive sleep apnea not on CPAP, hypothyroidism, morbid obesity with previous Alex-en-Y gastric bypass, tachycardia Subu syndrome, congestive heart failure, anxiety/depression and multiple other medical issues presented to the ER with worsening dyspnea, weight gain of 14 pounds over the last week, since ,accompanied by orthopnea, productive cough with pale yellow sputum and increased lower extremity edema. Last week she followed up with her PCP and diuretics were increased without relief of symptoms. Denies chest pain, palpitations. Troponin negative x 1. proBNP 118.EKG reported sinus rhythm, chest x-ray reported nonacute. Afebrile, normal WBC, hemoglobin 11.3, baseline, platelets 378, INR 0.9, electrolytes within normal limits. BUN 33, creatinine 0.66. Review of Systems ROS Statement: Those systems with pertinent positive or pertinent negative responses have been documented in the HPI. ROS Other: All systems not noted in ROS Statement are negative. Past Medical History Past Medical History: Asthma, Coronary Artery Disease (CAD), Chest Pain / Angina, Heart Failure, COPD, CVA/TIA, Deep Vein Thrombosis (DVT), Fibromyalgia, GERD/Reflux, GI Bleed, Hearing Disorder / Deafness, Hyperlipidemia, Hypertension, Memory Impairment, Myocardial Infarction (SC), Osteoarthritis (OA), Pneumonia, Pulmonary Embolus (PE), Renal Disease, Respiratory Disorder, Seizure Disorder, Skin Disorder, Sleep Apnea/CPAP/BIPAP, Thyroid Disorder Additional Past Medical History / Comment(s): 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 Alex-en-Y gastric bypass for morbid obesity, has home o2 that was prescribed in 2019 but currently does not use Last Myocardial Infarction Date:: 2002 History of Any Multi-Drug Resistant Organisms: None Reported Past Surgical History: Bariatric Surgery, Hernia Repair, Hysterectomy, Joint Replacement, Orthopedic Surgery, Tubal Ligation Additional Past Surgical History / Comment(s): 10/19/19 PCI with stent, EGDs, colonoscopy/benign polyps, gastric bypass with revision, ventral and hiatal hernia repair, bladder suspension, R rotator curr repair/revision, L knee arthroscopy, rectocele, perinealplasty, 07/05/20 left shoulder replacement, 11/11/21 right shoulder replacement Past Anesthesia/Blood Transfusion Reactions: Motion Sickness Past Psychological History: Anxiety, Depression Smoking Status: Never smoker Past Alcohol Use History: Rare Past Drug Use History: None Reported - Past Family History Mother Family Medical History: Coronary Artery Disease (CAD), Eye Disorder Additional Family Medical History / Comment(s): Mother is 91 yrs old Father Family Medical History: Myocardial Infarction (SC) Additional Family Medical History / Comment(s): Father of a massive SC at the age of 53 yrs. Medications and Allergies Home Medications Medication Instructions Recorded Confirmed Type rOPINIRole HCL [Requip] 3 mg PO DAILY 11/09/17 07/20/23 History Apixaban [Eliquis] 5 mg PO BID 01/07/22 07/20/23 History Ipratropium-Albuterol Nebulize 3 ml INHALATION RT-QID PRN 07/08/22 07/20/23 History [Duoneb 0.5 mg-3 mg/3 ml Soln] Ergocalciferol [Vitamin D2 (1250 1,250 mcg PO RALPH 10/10/22 07/20/23 History Mcg = 17997 Iu)] Levothyroxine Sodium [Synthroid] 88 mcg PO DAILY 10/10/22 07/20/23 History Albuterol Inhaler [Ventolin Hfa 1 - 2 puff INHALATION RT-Q6H PRN 04/26/23 07/20/23 History Inhaler] Fluticasone/Umeclidin/Vilanter 1 puff INHALATION RT-DAILY 04/26/23 07/20/23 History [Trelegy Ellipta 100-62.5-25] Topiramate [Topamax] 100 mg PO BID 04/26/23 07/20/23 History hydrOXYzine pamoate [Vistaril] 50 mg PO TID PRN 04/26/23 07/20/23 History tiZANidine [Zanaflex] 4 mg PO BID 04/26/23 07/20/23 History HYDROcodone/APAP 10-325MG [[place] 1 tab PO TID #9 tab 05/09/23 07/20/23 Rx 10-325] FLUoxetine HCL [PROzac] 60 mg PO DAILY cap 05/10/23 07/20/23 Rx ARIPiprazole [Abilify] 10 mg PO HS 07/20/23 07/20/23 History Butalb/APAP/Caff 50-325-40Mg 1 tab PO BID PRN 07/20/23 07/20/23 History [Fioricet 50-325-40] Gabapentin [Neurontin] 800 mg PO TID 07/20/23 07/20/23 History Losartan [Cozaar] 50 mg PO DAILY 07/20/23 07/20/23 History Nystatin 100,000 Unit/gm Powd 1 applic TOPICAL TID 07/20/23 07/20/23 History [Mycostatin Powder] Pregabalin [Lyrica] 200 mg PO TID 07/20/23 07/20/23 History Torsemide [Demadex] 20 mg PO DAILY 07/20/23 07/20/23 History Vortioxetine Hydrobromide 20 mg PO DAILY 07/20/23 07/20/23 History [Trintellix] rOPINIRole HCL [Requip] 6 mg PO HS 07/20/23 07/20/23 History Allergies Allergy/AdvReac Type Severity Reaction Status Date / Time adhesive tape Allergy Swelling Verified 07/20/23 09:06 cefprozil [From Cefzil] Allergy Unknown Verified 07/20/23 09:06 cyclobenzaprine Allergy Rash/Hives Verified 07/20/23 09:06 [From Flexeril] Sulfa (Sulfonamide Allergy Rash/Hives Verified 07/20/23 09:06 Antibiotics) valdecoxib [From Bextra] Allergy Unknown Verified 07/20/23 09:06 metaxalone [From Skelaxin] AdvReac Nausea & Verified 07/20/23 09:06 Vomiting Physical Exam Vitals: Vital Signs Temp Pulse Resp BP Pulse Ox 07/20/23 17:34 72 18 108/51 96 07/20/23 16:12 97.8 F 70 18 125/92 100 07/20/23 11:00 65 18 118/76 98 07/20/23 09:28 61 18 89/45 100 07/20/23 06:17 68 18 116/57 95 07/20/23 05:26 65 18 126/75 97 07/20/23 02:12 97.8 F 61 20 149/68 100 Intake and Output 07/20/23 07/20/23 07/20/23 06:59 14:59 22:59 Other: Weight 124.284 kg PHYSICAL EXAM: VITAL SIGNS: [As above] GENERAL: Morbidly obese ,alert, pleasant, sitting up in bed, no acute distress HEENT: Normocephalic conjunctivae normal. eyes normal. NECK: Supple, no JVD. No thyroid enlargement. No LNs CARDIOVASCULAR: S1, S2 regular.. No murmur RESPIRATION: Unlabored, equal air entry, bibasilar crackles. No wheezing ABDOMEN: Obese, soft,nontender . No guarding. no masses palpable. No ascites, No hepatosplenomegaly.Bowel sounds heard. LEGS: +2 pitting edema bilateral lower extremities, greatest on the right. PSYCHIATRY: Alert and oriented X3, mood and affect normal. NERVOUS SYSTEM: Cranial N 2-12 grossly normal.No focal deficits. Strength and sensation grossly intact. Skin: Warm and dry, no rash Results CBC & Chem 7: 07/20/23 02:20 07/20/23 02:20 Labs: Abnormal Lab Results - Last 24 Hours (Table) 07/20/23 07/20/23 07/20/23 Range/Units 02:20 02:20 02:20 Hgb 11.3 L (11.4-16.0) gm/dL MCH 24.7 L (25.0-35.0) pg MCHC 29.5 L (31.0-37.0) g/dL RDW 20.5 H (11.5-15.5) % PT 9.4 L (10.0-12.5) sec BUN 33 H (7-17) mg/dL Magnesium 2.4 H (1.6-2.3) mg/dL Assessment and Plan Assessment: Acute on chronic CHF exacerbation, systolic dysfunction History of COVID 04/26 Obstructive sleep apnea not on CPAP therapy History of multiple PE,DVT, on Eliquis CAD, history of stent Hypertension Hyperlipidemia Hypothyroidism History of GI bleeding History of CVA/TIA with some residual right-sided weakness Peripheral neuropathy Chronic pain syndrome with nerve stimulator in back, unable to have MRI Fibromyalgia Morbid obesity,status post Alex-en-Y gastric bypass surgery 30 years ago,BMI 53 Hiatal hernia Raynolds syndrome Plan: Continue on current medication using ,monitoring and symptomatic t reatment. Echo pending. diurese on scheduled Lasix IV push, strict SUSANNA's, ,close monitoring of renal function and electrolytes with repeat labs ordered for a.m. echo pending. Cardiology consult in place. The impression and plan of care has been dictated as directed. : I performed a history and examination of this patient, discussed the same with the dictator. I agree with the dictator's note ,documented as a scribe. Any additional findings or plans will be noted.
[2023-07-20] MEDS: ARIPiprazole 10 MG TAB PO SCH (21:25)
[2023-07-21] MEDS: HYDROcodone/APAP 10-325MG 1 EACH TAB PO SCH (04:29)
[2023-07-21] MEDS: LEVOTHYROXINE 88 MCG TAB PO SCH (06:14)
[2023-07-21 08:09] LABS: Anisocytosis Moderate; Basophils % (A) 1 %; Eosinophils # (A) 0.2 k/uL (0-0.7); Eosinophils % (A) 3 %; HCT 31.7 % (34.0-46.0); HGB 9.4 gm/dL (11.4-16.0); Hypochromasia Marked; Lymphocytes # (A) 1.7 k/uL (1.0-4.8); Lymphocytes % (A) 29 %; MCH 24.8 pg (25.0-35.0); MCHC 29.7 g/dL (31.0-37.0); MCV 83.7 fL (80.0-100.0); Mean Platelet Volume 8.2; Microcytosis Slight; Monocytes # (A) 0.5 k/uL (0-1.0); Monocytes % (A) 9 %; Neutrophils # (A) 3.4 k/uL (1.3-7.7); Neutrophils % (A) 56 %; Platelet Count 323 k/uL (150-450); RBC 3.79 m/uL (3.80-5.40); RDW 20.2 % (11.5-15.5)
--- NOTE | 2023-07-21 09:32 | P.PN ---
Subjective Progress Note Date: 07/21/23 Consult reason: congestive heart failure History of present illness: History of present illness: This is a 68-year-old female patient of Dr. Haseeb Charles with past medical history of coronary artery disease, hypertension, hyperlipidemia, history of CVA, obstr uctive sleep apnea not able to tolerate device, bilateral PE and DVT, morbid obesity status post Alex-en-Y. We have been asked to evaluate the patient for CHF. Patient is seen today in the emergency center waiting for a bed on the observation unit. Patient states that she developed shortness of breath along with lower extremity edema over the past week. She states she has increased shortness of breath with trying to lay down and feels like she is being smothered for the past couple of days. She has gained 14 pounds since last . She has been started on IV Lasix 40 mg every 8 hours and has been diuresing well. She states his swelling and shortness of breath are improved. EKG sinus rhythm with no acute ST changes Chest x-ray: No acute process WBC 7.1, hemoglobin 9.3, platelet count 378. INR 0.8. Electrolytes are normal. BUN 33 creatinine 0.66. Blood sugar 84. Magnesium 2.4. Troponin negative x 1. proBNP 118. Home cardiac medications: Eliquis 5 mg twice daily, losartan 50 mg daily, Demadex 20 mg daily, also on levothyroxine 88 mcg daily. Echocardiogram performed 10/11/2022 revealed mild LV systolic dysfunction with EF of 40 to 45%, mild MR, mild TR. Cardiac catheterization 10/18/[address] KAMILAH Vick revealed diagonal 80 to 90% stenosis. End-diastolic pressure of 22 mmHg and without any gradient across aortic valve. Patient subsequently underwent PCI of diagonal branch with a drug-eluting stent. 07/20 [facility] She states she still has difficulty breathing when she is lying flat. She has noted to have less lower extremity edema. She is currently on IV Lasix 40 mg every 8 hours. She has a negative fluid balance this morning. Blood pressure 98/65, heart rate in the 60s, pulse ox 100% on room air. Echocardiogram is pending. Physical examination: Gen: This is a morbidly obese 68-year-old female. She appears to be in no acute distress VS: reviewed HEENT: Head is atraumatic, normocephalic. Pupils equal, round. Sclerae is anicteric. NECK: Supple. No JVD. LUNGS: Diminished bilaterally no wheezing.. No intercostal retractions. HEART: Regular rate and rhythm. No murmur. ABDOMEN: Soft No tenderness. EXTREMITIES: Mild bilateral pedal edema. No calf tenderness. NEUROLOGICAL: Patient is awake, alert and oriented x3. Assessment: Acute on chronic systolic heart failure History of coronary artery disease with previous stent of the diagonal branch Hypertension Hyperlipidemia History of CVA Obstructive sleep apnea not using CPAP History of bilateral PE and DVT Chronic anemia Plan: Continue patient's home cardiac medications Continue Lasix 40 mg IV every 8 hours for another 24 days and transition to oral tomorrow Monitor SUSANNA, daily weights, electrolytes and renal function Obtain 2-D echocardiogram and Doppler study to assess cardiac structure and function Further recommendations to follow based upon clinical course Thank you kindly for this consultation. Nurse practitioner note has been reviewed, I agree with documented findings and plan of care. Patient was seen and examined. Objective - Vital Signs Vital signs: Vital Signs Temp 97.8 F 07/21/23 06:52 Pulse 69 07/21/23 06:52 Resp 18 07/21/23 06:52 BP 98/65 07/21/23 06:52 Pulse Ox 100 07/21/23 06:52 FiO2 Intake & Output 07/20/23 07/21/23 07/21/23 18:59 06:59 18:59 Intake Total 240 Output Total 750 Balance -510 Weight 124.284 kg 124.7 kg Intake: Oral 240 Output: Urine 750 Other: Voiding Method Toilet # Voids 0 - Labs CBC & Chem 7: 07/21/23 06:39 07/20/23 02:20 Labs: Abnormal Lab Results - Last 24 Hours (Table) 07/21/23 Range/Units 06:39 RBC 3.79 L (3.80-5.40) m/uL Hgb 9.4 L D (11.4-16.0) gm/dL Hct 31.7 L (34.0-46.0) % MCH 24.8 L (25.0-35.0) pg MCHC 29.7 L (31.0-37.0) g/dL RDW 20.2 H (11.5-15.5) %
[2023-07-21 12:26] LABS: BUN/Creat Ratio 35.44 Ratio (12.00-20.00); Blood Urea Nitrogen 31.9 mg/dL (9.0-27.0); Carbon Dioxide 21.7 mmol/L (21.6-31.8); Chloride 104 mmol/L (96-109); Glucose 102 mg/dL (70-110); Potassium 4.4 mmol/L (3.5-5.5); Sodium 139 mmol/L (135-145)
[2023-07-21 12:27] LABS: Calcium 8.6 mg/dL (8.7-10.3)
--- NOTE | 2023-07-21 14:55 | XR ---
EXAMINATION TYPE: XR knee limited LT DATE OF EXAM: 07/21/2023 COMPARISON: 10/10/2022 HISTORY: 68 year-old female left knee pain after fall 2 days ago TECHNIQUE: 2 views FINDINGS: Mild generalized soft tissue swelling. There is osteopenia. There is tricompartmental degen erative change at the knee, possibly severe in the lateral and patellofemoral compartments. There is generalized osteopenia. No displaced fractures are seen. Trace knee joint effusion on the lateral vie w. IMPRESSION: Tricompartment osteoarthrosis, severe in the lateral and patellofemoral compartments. Generalized sof t tissue swelling. Osteopenia without displaced fracture seen.
[2023-07-21] MEDS: ZINC OXIDE PASTE (Z-GUARD) 1 APPLIC TOPICAL PRN (22:27)
--- NOTE | 2023-07-22 05:33 | P.PN ---
Subjective Progress Note Date: 07/21/23 Chief Complaint: Progressive shortness of breath This is a 68-year-old female with past medical history significant for coronary artery disease, CVA with right-sided weakness, PE/DVT, GI bleed, hypertension, hyperlipidemia, obstructive sleep apnea not on CPAP, hypothyroidism, morbid obesity with previous Alex-en-Y gastric bypass, tachycardia Subu syndrome, congestive heart failure, anxiety/depression and multiple other medical issues presented to the ER with worsening dyspnea, weight gain of 14 pounds over the last week, since ,accompanied by orthopnea, productive cough with pale yellow sputum and increased lower extremity edema. Last week she followed up with her PCP and diuretics were increased without relief of symptoms. Denies chest pain, palpitations. Troponin negative x 1. proBNP 118.EKG reported sinus rhythm, chest x-ray reported nonacute. Afebrile, normal WBC, hemoglobin 11.3, baseline, platelets 378, INR 0.9, electrolytes within normal limits. BUN 33, creatinine 0.66. 07/21/2023 Patient seen and currently sitting up at the side of the bed. Patient is continued on telemetry monitoring along with IV Lasix and diuresing well. Recommending IV Lasix overnight in the next 24 hours. Patient is reporting left knee pain status post fall prior to admission and is having extreme tenderness and difficulty with ambulation due to this. Will obtain an x-ray as well as consult orthopedics and appreciate input and recommendations. Currently no reports of chest pain or worsening shortness of breath. Patient tolerating diet with no reported nausea or vomiting. Review of systems: Constitutional: No reports of fatigue, fever, or chills Cardiovascular: No reports of chest pain or palpitations Respiratory: reports of shortness of breath with exertion is improving GI: No reports of nausea, vomiting, or diarrhea : No reports of dysuria or retention Neurovascular: No reports of weakness or numbness, reports left knee pain with some swelling All medications have been reviewed Physical exam: Gen: This is a 68-year-old female who is awake, alert oriented x 3, well- developed, well-nourished, morbidly obese, elderly appearing HEENT: Head is atraumatic, normocephalic. Pupils equal, round. Sclerae is anicteric. NECK: Supple. No JVD. No lymphadenopathy. No thyromegaly. LUNGS: Diminished breath sounds bilaterally otherwise clear to auscultation. No wheezes or rhonchi. No intercostal retractions. HEART: S1, S2 are muffled. ABDOMEN: Soft. Obese bowel sounds are present. No masses. No tenderness. EXTREMITIES: No pedal edema. No calf tenderness. Left knee pain on palpation, full range of motion noted on exam NEUROLOGICAL: Patient is awake, alert and oriented x3. Cranial nerves 2 through 12 are grossly intact. Assessment: Acute on chronic CHF exacerbation, systolic dysfunction History of COVID 04/26 Left knee pain, status post fall, rule out fractures Obstructive sleep apnea not on CPAP therapy History of multiple PE,DVT, on Eliquis CAD, history of stent Hypertension Hyperlipidemia Hypothyroidism History of GI bleeding History of CVA/TIA with some residual right-sided weakness Peripheral neuropathy Chronic pain syndrome with nerve stimulator in back, unable to have MRI Fibromyalgia Morbid obesity,status post Alex-en-Y gastric bypass surgery 30 years ago,BMI 48.8 Hiatal hernia History of Raynaud's syndrome GI prophylaxis DVT prophylaxis Full code Plan: Patient currently continues on telemetry monitoring being monitored by cardiology recommending to continue with IV diuresis for another 24 hours Will follow-up with repeat BMP and replace electrolytes per protocol Patient having left knee pain and reports fell prior to admission and will obtain a knee x-ray and consult orthopedics and appreciate input and recommendations PT/OT therapy to evaluate Possible discharge planning in the next 24 to 48 hours Due to multiple complex medical issues, prognosis is guarded The impression and plan of care has been dictated by Ruba Vuong, Nurse Practitioner as directed. Dr. Darius MD I have performed a history and examination and MDM of this patient, discussed the same with the dictator, and agree with the dictator's assessment and plan as written ,documented as a scribe. Based on total visit time, I have performed more than 50% of the visit. Objective - Vital Signs Vital signs: Vital Signs Temp 97.8 F 07/21/23 06:52 Pulse 69 07/21/23 06:52 Resp 18 07/21/23 06:52 BP 98/65 07/21/23 06:52 Pulse Ox 100 07/21/23 06:52 FiO2 Intake & Output 07/20/23 07/21/23 07/21/23 18:59 06:59 18:59 Intake Total 240 Output Total 750 Balance -510 Weight 124.284 kg 124.7 kg Intake: Oral 240 Output: Urine 750 Other: Voiding Method Toilet # Voids 0 - Labs CBC & Chem 7: 07/21/23 06:39 07/21/23 07:17 Labs: Abnormal Lab Results - Last 24 Hours (Table) 07/21/23 07/21/23 Range/Units 06:39 07:17 RBC 3.79 L (3.80-5.40) m/uL Hgb 9.4 L D (11.4-16.0) gm/dL Hct 31.7 L (34.0-46.0) % MCH 24.8 L (25.0-35.0) pg MCHC 29.7 L (31.0-37.0) g/dL RDW 20.2 H (11.5-15.5) % Anion Gap 13.30 H (4.00-12.00) mmol/L BUN 31.9 H (9.0-27.0) mg/dL BUN/Creatinine Ratio 35.44 H (12.00-20.00) Ratio Calcium 8.6 L (8.7-10.3) mg/dL
[2023-07-22] MEDS: PANTOPRAZOLE 40 MG TABLET PO SCH (06:24)
--- NOTE | 2023-07-22 09:13 | P.CNOR ---
History of Present Illness - [facility] Consult date: 07/22/23 Consult reason: joint pain (Left knee pain) History of present illness: The patient is a 68-year-old female with multiple medical problems that presented to the emergency department with shortness of breath 2 days ago. She states she fell before admission and fell directly on her left knee. She has been having difficulty ambulating due to the pain in the knee and orthopedics was consulted for further evaluation. X-ray of the left knee was obtained yesterday and did not show any fractures. This morning, the patient states that her pain is continued in the left knee and is worse with movement and weightb earing. Review of Systems Constitutional: Denies chills, Denies fatigue, Denies fever Cardiovascular: Reports chest pain, Reports shortness of breath Respiratory: Reports cough Gastrointestinal: Denies diarrhea, Denies nausea, Denies vomiting Musculoskeletal: left: knee stiffness, knee swelling, shoulder pain Past Medical History Past Medical History: Asthma, Coronary Artery Disease (CAD), Chest Pain / Angina, Heart Failure, COPD, CVA/TIA, Deep Vein Thrombosis (DVT), Fibromyalgia, GERD/Reflux, GI Bleed, Hearing Disorder / Deafness, Hyperlipidemia, Hypertension, Memory Impairment, Myocardial Infarction (CO), Osteoarthritis (OA), Pneumonia, Pulmonary Embolus (PE), Renal Disease, Respiratory Disorder, Seizure Disorder, Skin Disorder, Sleep Apnea/CPAP/BIPAP, Thyroid Disorder Additional Past Medical History / Comment(s): 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 Alex-en-Y gastric bypass for morbid obesity, has home o2 that was prescribed in 2019 but currently does not use Last Myocardial Infarction Date:: 2002 History of Any Multi-Drug Resistant Organisms: None Reported Past Surgical History: Bariatric Surgery, Hernia Repair, Hysterectomy, Joint Replacement, Orthopedic Surgery, Tubal Ligation Additional Past Surgical History / Comment(s): 10/19/19 PCI with stent, EGDs, colonoscopy/benign polyps, gastric bypass with revision, ventral and hiatal hernia repair, bladder suspension, R rotator curr repair/revision, L knee arthroscopy, rectocele, perinealplasty, 07/05/20 left shoulder replacement, 11/11/21 right shoulder replacement Past Anesthesia/Blood Transfusion Reactions: Motion Sickness Past Psychological History: Anxiety, Depression Smoking Status: Never smoker Past Alcohol Use History: Rare Past Drug Use History: None Reported - Past Family History Mother Family Medical History: Coronary Artery Disease (CAD), Eye Disorder Additional Family Medical History / Comment(s): Mother is 91 yrs old Father Family Medical History: Myocardial Infarction (CO) Additional Family Medical History / Comment(s): Father of a massive CO at the age of 53 yrs. Medications and Allergies Home Medications Medication Instructions Recorded Confirmed Type rOPINIRole HCL [Requip] 3 mg PO DAILY 11/09/17 07/20/23 History Apixaban [Eliquis] 5 mg PO BID 01/07/22 07/20/23 History Ipratropium-Albuterol Nebulize 3 ml INHALATION RT-QID PRN 07/08/22 07/20/23 History [Duoneb 0.5 mg-3 mg/3 ml Soln] Ergocalciferol [Vitamin D2 (1250 1,250 mcg PO RALPH 10/10/22 07/20/23 History Mcg = [id number] Iu)] Levothyroxine Sodium [Synthroid] 88 mcg PO DAILY 10/10/22 07/20/23 History Albuterol Inhaler [Ventolin Hfa 1 - 2 puff INHALATION RT-Q6H PRN 04/26/23 History Inhaler] Fluticasone/Umeclidin/Vilanter 1 puff INHALATION RT-DAILY 04/26/23 07/20/23 History [Trelegy Ellipta 100-62.5-25] Topiramate [Topamax] 100 mg PO BID 04/26/23 07/20/23 History hydrOXYzine pamoate [Vistaril] 50 mg PO TID PRN 04/26/23 07/20/23 History tiZANidine [Zanaflex] 4 mg PO BID 04/26/23 07/20/23 History HYDROcodone/APAP 10-325MG [Kirby 1 tab PO TID #9 tab 05/09/23 07/20/23 Rx 10-325] FLUoxetine HCL [PROzac] 60 mg PO DAILY cap 05/10/23 07/20/23 Rx ARIPiprazole [Abilify] 10 mg PO HS 07/20/23 07/20/23 History Butalb/APAP/Caff 50-325-40Mg 1 tab PO BID PRN 07/20/23 07/20/23 History [Fioricet 50-325-40] Gabapentin [Neurontin] 800 mg PO TID 07/20/23 07/20/23 History Losartan [Cozaar] 50 mg PO DAILY 07/20/23 07/20/23 History Nystatin 100,000 Unit/gm Powd 1 applic TOPICAL TID 07/20/23 07/20/23 History [Mycostatin Powder] Pregabalin [Lyrica] 200 mg PO TID 07/20/23 07/20/23 History Torsemide [Demadex] 20 mg PO DAILY 07/20/23 07/20/23 History Vortioxetine Hydrobromide 20 mg PO DAILY 07/20/23 07/20/23 History [Trintellix] rOPINIRole HCL [Requip] 6 mg PO HS 07/20/23 07/20/23 History Allergies Allergy/AdvReac Type Severity Reaction Status Date / Time adhesive tape Allergy Swelling Verified 07/20/23 09:06 cefprozil [From Cefzil] Allergy Unknown Verified 07/20/23 09:06 cyclobenzaprine Allergy Rash/Hives Verified 07/20/23 09:06 [From Flexeril] Sulfa (Sulfonamide Allergy Rash/Hives Verified 07/20/23 09:06 Antibiotics) valdecoxib [From Bextra] Allergy Unknown Verified 07/20/23 09:06 metaxalone [From Skelaxin] AdvReac Nausea & Verified 07/20/23 09:06 Vomiting Physical Examination The patient is a 68-year-old female in no acute distress. She is alert and oriented x 3. Exam of the left leg reveals a moderate effusion and diffuse swelling throughout the anterior knee. There is pain to the lateral joint line upon palpation. ACL, PCL, MCL, LCL appear to be intact. No pain to palpation of the patella. No pain to the posterior knee. There is pain upon flexion and extension of the knee. Calf is soft and nontender. Good foot and ankle motion. Neurological and circulatory status is intact. Results X-ray of the left knee dated 07/21/2023 reveals severe tricompartmental os teoarthritis. No fracture or dislocation noted. - Labs Labs: Abnormal Lab Results - Last 24 Hours (Table) 07/21/23 Range/Units 07:17 Anion Gap 13.30 H (4.00-12.00) mmol/L BUN 31.9 H (9.0-27.0) mg/dL BUN/Creatinine Ratio 35.44 H (12.00-20.00) Ratio Calcium 8.6 L (8.7-10.3) mg/dL H & H 07/20/23 07/21/23 Range/Units 02:20 06:39 Hgb 11.3 L 9.4 L D (11.4-16.0) gm/dL Hct 38.5 31.7 L (34.0-46.0) % Coagulation 07/20/23 Range/Units 02:20 INR 0.8 (<1.2) Result Diagrams: 07/21/23 06:39 07/21/23 07:17 Assessment and Plan (1) Knee pain, left Current Visit: Yes Status: Acute Code(s): M25.562 - PAIN IN LEFT KNEE SNOMED Code(s): 5731450833 (2) Effusion, left knee Current Visit: Yes Status: Acute Code(s): M25.462 - EFFUSION, LEFT KNEE SNOMED Code(s): 467460020402551 (3) Primary localized osteoarthritis of left knee Current Visit: Yes Status: Acute Code(s): M17.12 - UNILATERAL PRIMARY OSTEOARTHRITIS, LEFT KNEE SNOMED Code(s): 464999454880332 (4) Fall Current Visit: No Status: Acute Code(s): W19.XXXA - UNSPECIFIED FALL, INITIAL ENCOUNTER SNOMED Code(s): 7057501 Plan: The clinical and x-ray findings were discussed with the patient. The case was discussed with Dr. Goodman. The patient will continue rest, ice and/or heat to the left knee. Anti-inflammatories may be helpful and also Kirby as needed. I offered a brace but the patient declines at this time due to the size of her leg. She will weight-bear as tolerated with a walker. If the pain continues, further imaging may be needed. We will continue to follow patient peripherally as she remains in the hospital.
[2023-07-22 11:44] LABS: BUN/Creat Ratio 46.75 Ratio (12.00-20.00); Blood Urea Nitrogen 37.4 mg/dL (9.0-27.0); Calcium 8.7 mg/dL (8.7-10.3); Carbon Dioxide 24.4 mmol/L (21.6-31.8); Chloride 106 mmol/L (96-109); Glucose 89 mg/dL (70-110); Potassium 4.4 mmol/L (3.5-5.5); Sodium 141 mmol/L (135-145)
--- NOTE | 2023-07-22 12:41 | P.PN ---
Subjective Progress Note Date: 07/22/23 Principal diagnosis: Heart failure The patient is a 68-year-old female patient with coronary artery disease and prior revascularization as well as cardiomyopathy with EF around 45% as well as hypertension and dyslipidemia and history of obstructive sleep apnea and history of DVT/PE was admitted to the hospital with heart failure July 22, 2023 The patient was seen and evaluated this morning. She is feeling slightly better. She is euvolemic on examination with clear breathing sounds bilaterally and she is currently not on oxygen. She has bilateral lower extremities nonp itting edema. No pain in the chest and no dizziness or lightheadedness and no feeling of heart racing or fluttering. She is on oral anticoagulation for history of DVT/PE. Assessment Heart failure with reduced ejection fraction Coronary artery disease with prior revascularization Obstructive sleep apnea Obesity Multiple comorbid conditions including history of DVT/PE Plan Continue the current medical regimen The patient potentially can be switched to oral diuretics Possible discharge in the next 12 to 24-hour Objective - Vital Signs Vital signs: Vital Signs Temp 97.8 F 07/22/23 07:16 Pulse 63 07/22/23 07:16 Resp 17 07/22/23 07:16 BP 100/67 07/22/23 07:16 Pulse Ox 97 07/22/23 07:16 FiO2 Intake & Output 07/21/23 07/22/23 07/22/23 18:59 06:59 18:59 Output Total 1501 Balance -1501 Weight 124.7 kg 121 kg Output: Urine 1500 Stool 1 Other: Voiding Method Toilet Toilet # Voids 3 6 # Bowel Movements 1 2 - Labs CBC & Chem 7: 07/21/23 06:39 07/22/23 05:45 Labs: Abnormal Lab Results - Last 24 Hours (Table) 07/22/23 Range/Units 05:45 BUN 37.4 H (9.0-27.0) mg/dL BUN/Creatinine Ratio 46.75 H (12.00-20.00) Ratio
[2023-07-22] MEDS ORDERED: IPRATROPIUM-ALBUTEROL 3 ML NEB INHALATION PRN (13:10)
[2023-07-22] MEDS: IPRATROPIUM-ALBUTEROL 3 ML NEB INHALATION SCH (21:27)
--- NOTE | 2023-07-23 02:46 | P.PN ---
Subjective Progress Note Date: 07/22/23 Chief Complaint: Progressive shortness of breath This is a 68-year-old female with past medical history significant for coronary artery disease, CVA with right-sided weakness, PE/DVT, GI bleed, hypertension, hyperlipidemia, obstructive sleep apnea not on CPAP, hypothyroidism, morbid obesity with previous Alex-en-Y gastric bypass, tachycardia Subu syndrome, congestive heart failure, anxiety/depression and multiple other medical issues presented to the ER with worsening dyspnea, weight gain of 14 pounds over the last week, since ,accompanied by orthopnea, productive cough with pale yellow sputum and increased lower extremity edema. Last week she followed up with her PCP and diuretics were increased without relief of symptoms. Denies chest pain, palpitations. Troponin negative x 1. proBNP 118.EKG reported sinus rhythm, chest x-ray reported nonacute. Afebrile, normal WBC, hemoglobin 11.3, baseline, platelets 378, INR 0.9, electrolytes within normal limits. BUN 33, creatinine 0.66. 07/21/2023 Patient seen and currently sitting up at the side of the bed. Patient is continued on telemetry monitoring along with IV Lasix and diuresing well. Recommending IV Lasix overnight in the next 24 hours. Patient is reporting left knee pain status post fall prior to admission and is having extreme tenderness and difficulty with ambulation due to this. Will obtain an x-ray as well as consult orthopedics and appreciate input and recommendations. Currently no reports of chest pain or worsening shortness of breath. Patient tolerating diet with no reported nausea or vomiting. 07/22/2023 Patient is seen in follow-up this morning currently remains on IV Lasix every 8 hours and diuresing well reporting improvements in shortness of breath. Patient reports to having continued shortness of breath with exertion continued left knee pain. Patient did have a x-ray performed on the left knee showing osteoarthritis with no fractures and some soft tissue swelling noted. Orthopedics recommending conservative management and a possible brace although patient is refusing. Patient does have a walker as needed and will continue to do so with weightbearing as tolerated. Encouraged elevating lower extremities while at rest and may continue with ice/heat pad for some relief. Will add breathing treatments and continue with IV Lasix for now. Encouraged to increase activity as tolerated. Review of systems: Constitutional: No reports of fatigue, fever, or chills Cardiovascular: No reports of chest pain or palpitations Respiratory: reports of shortness of breath with exertion, reports is improving GI: No reports of nausea, vomiting, or diarrhea : No reports of dysuria or retention Neurovascular: No reports of weakness or numbness, reports left knee pain with some swelling All medications have been reviewed Physical exam: Gen: This is a 68-year-old female who is awake, alert oriented x 3, well- developed, well-nourished, morbidly obese, elderly appearing HEENT: Head is atraumatic, normocephalic. Pupils equal, round. Sclerae is anicteric. NECK: Supple. No JVD. No lymphadenopathy. No thyromegaly. LUNGS: Diminished breath sounds bilaterally otherwise clear to auscultation. No wheezes or rhonchi. No intercostal retractions. HEART: S1, S2 are muffled. ABDOMEN: Soft. Obese bowel sounds are present. No masses. No tenderness. EXTREMITIES: No pedal edema. No calf tenderness. Left knee pain on palpation, full range of motion noted on exam NEUROLOGICAL: Patient is awake, alert and oriented x3. Cranial nerves 2 through 12 are grossly intact. Assessment: Acute on chronic CHF exacerbation, systolic dysfunction History of COVID 04/26 Left knee pain, status post fall, ruled out fractures Obstructive sleep apnea not on CPAP therapy History of multiple PE,DVT, on Eliquis CAD, history of stent Hypertension Hyperlipidemia Hypothyroidism History of GI bleeding History of CVA/TIA with some residual right-sided weakness Peripheral neuropathy Chronic pain syndrome with nerve stimulator in back, unable to have MRI Fibromyalgia Morbid obesity,status post Alex-en-Y gastric bypass surgery 30 years ago,BMI 48.8 Hiatal hernia History of Raynaud's syndrome GI prophylaxis DVT prophylaxis Full code Plan: Patient currently continues on telemetry monitoring being monitored by cardiology recommending to continue with IV diuresis and can possibly transition to oral in the next 1 day and outpatient follow-up. Patient reports some continued shortness of breath will add DuoNebs 3 times daily Patient having left knee pain and reports fell prior to admission, knee x-ray was negative for acute fractures and evaluated by orthopedics recommending possible brace and conservative management. Patient refusing a brace at this time due to the size of her leg and has been instructed to weight-bear as tolerated with continue ice and/or heat to the area and conservative measures with outpatient follow-up as needed. Encouraged elevating lower extremities while at rest. Possible discharge planning in the next 24 to 48 hours Due to multiple complex medical issues, prognosis is guarded The impression and plan of care has been dictated by Ruba Vuong, Nurse Practitioner as directed. Dr. Darius MD I have performed a history and examination and MDM of this patient, discussed the same with the dictator, and agree with the dictator's assessment and plan as written ,documented as a scribe. Based on total visit time, I have performed more than 50% of the visit. Objective - Vital Signs Vital signs: Vital Signs Temp 98.4 F 07/22/23 19:40 Pulse 72 07/22/23 21:35 Resp 18 07/22/23 19:40 BP 101/65 07/22/23 19:40 Pulse Ox 98 07/22/23 19:40 FiO2 Intake & Output 07/22/23 07/22/23 07/23/23 06:59 18:59 06:59 Output Total 1700 Balance -1700 Weight 121 kg Output: Urine 1700 Other: Voiding Method Toilet Toilet # Voids 6 # Bowel Movements 2 - Labs CBC & Chem 7: 07/21/23 06:39 07/22/23 05:45 Labs: Abnormal Lab Results - Last 24 Hours (Table) 07/22/23 Range/Units 05:45 BUN 37.4 H (9.0-27.0) mg/dL BUN/Creatinine Ratio 46.75 H (12.00-20.00) Ratio
[2023-07-23] MEDS: ACETAMINOPHEN TAB 325 MG TAB PO PRN (03:16)
[2023-07-23] MEDS: VORTIOXETINE HYDROBROMIDE 20 MG TABLET PO SCH (10:17)
--- NOTE | 2023-07-23 13:30 | P.PN ---
Subjective Progress Note Date: 07/23/23 Principal diagnosis: Heart failure The patient is a 68-year-old female patient with coronary artery disease and prior revascularization as well as cardiomyopathy with EF around 45% as well as hypertension and dyslipidemia and history of obstructive sleep apnea and history of DVT/PE was admitted to the hospital with heart failure July 22, 2023 The patient was seen and evaluated this morning. She is feeling slightly better. She is euvolemic on examination with clear breathing sounds bilaterally and she is currently not on oxygen. She has bilateral lower extremities nonp itting edema. No pain in the chest and no dizziness or lightheadedness and no feeling of heart racing or fluttering. She is on oral anticoagulation for history of DVT/PE. July 23, 2023 The patient was seen and evaluated this morning. She continues to have shortness of breath with exertion but no pain in the chest and no dizziness or lightheadedness and no feeling of heart racing or fluttering. The pressure is marginal and currently she is on high dose of Lasix IV which I am going to decrease. Continue monitor the kidney function and electrolytes. Examination revealed diminished breathing sounds bilaterally and bilateral lower extremities edema Assessment Heart failure with reduced ejection fraction Coronary artery disease with prior revascularization Obstructive sleep apnea Obesity Multiple comorbid conditions including history of DVT/PE Plan Continue the current medical regimen Decrease the dose of Lasix IV Possible discharge in the next 24 hours Objective - Vital Signs Vital signs: Vital Signs Temp 97.5 F L 07/23/23 07:00 Pulse 86 07/23/23 13:21 Resp 17 07/23/23 07:00 BP 91/64 07/23/23 07:00 Pulse Ox 98 07/23/23 07:00 FiO2 Intake & Output 07/22/23 07/23/23 07/23/23 18:59 06:59 18:59 Output Total 1700 Balance -1700 Weight 120.2 kg Output: Urine 1700 Other: Voiding Method Toilet # Voids 4 - Labs CBC & Chem 7: 07/21/23 06:39 07/22/23 05:45
--- NOTE | 2023-07-23 13:49 | XR ---
EXAMINATION TYPE: XR abdomen acute w cxr DATE OF EXAM: 07/23/2023 COMPARISON: NONE HISTORY: 68 year-old female epigastric abdominal pain FINDINGS: Bilateral reverse total shoulder arthroplasties. Spinal stimulator array centered along the mid thora cic spinal canal. The heart is normal size. Mild interstitial prominence has a chronic appearance. No consolidation or pleural effusion. Eventration right hemidiaphragm. Surgical material at and just below the GE junction. Scattered air-fluid levels in the abdomen likely within both small and large bowel. Moderate stool in the left side of the colon. No frankly dilated small bowel loops are seen. Pelvic phleboliths. IMPRESSION: 1. Chronic-appearing changes in the lungs. No definite acute cardiopulmonary process. 2. There are scattered air-fluid levels in the abdomen, likely located within both small bowel and co radha. Consider enteritis or ileus. Overall nonobstructive pattern at this time. Short interval follow- up as clinically indicated. 3. Moderate stool in the left side of the colon.
--- NOTE | 2023-07-23 16:53 | P.PN ---
Subjective Progress Note Date: 07/23/23 Chief Complaint: Progressive shortness of breath This is a 68-year-old female with past medical history significant for coronary artery disease, CVA with right-sided weakness, PE/DVT, GI bleed, hypertension, hyperlipidemia, obstructive sleep apnea not on CPAP, hypothyroidism, morbid obesity with previous Alex-en-Y gastric bypass, tachycardia Subu syndrome, congestive heart failure, anxiety/depression and multiple other medical issues presented to the ER with worsening dyspnea, weight gain of 14 pounds over the last week, since ,accompanied by orthopnea, productive cough with pale yellow sputum and increased lower extremity edema. Last week she followed up with her PCP and diuretics were increased without relief of symptoms. Denies chest pain, palpitations. Troponin negative x 1. proBNP 118.EKG reported sinus rhythm, chest x-ray reported nonacute. Afebrile, normal WBC, hemoglobin 11.3, baseline, platelets 378, INR 0.9, electrolytes within normal limits. BUN 33, creatinine 0.66. 07/21/2023 Patient seen and currently sitting up at the side of the bed. Patient is continued on telemetry monitoring along with IV Lasix and diuresing well. Recommending IV Lasix overnight in the next 24 hours. Patient is reporting left knee pain status post fall prior to admission and is having extreme tenderness and difficulty with ambulation due to this. Will obtain an x-ray as well as consult orthopedics and appreciate input and recommendations. Currently no reports of chest pain or worsening shortness of breath. Patient tolerating diet with no reported nausea or vomiting. 07/22/2023 Patient is seen in follow-up this morning currently remains on IV Lasix every 8 hours and diuresing well reporting improvements in shortness of breath. Patient reports to having continued shortness of breath with exertion continued left knee pain. Patient did have a x-ray performed on the left knee showing osteoarthritis with no fractures and some soft tissue swelling noted. Orthopedics recommending conservative management and a possible brace although patient is refusing. Patient does have a walker as needed and will continue to do so with weightbearing as tolerated. Encouraged elevating lower extremities while at rest and may continue with ice/heat pad for some relief. Will add breathing treatments and continue with IV Lasix for now. Encouraged to increase activity as tolerated. 07/23/2023 Patient is seen in follow-up this morning being followed by cardiology maintained on Lasix twice daily although having some low blood pressures will make daily as patient is still having some shortness of breath. Patient is reporting abdominal pain in the mid epigastric area, will obtain. Will continue Protonix twice daily and decrease diet down to clear liquids. Patient is afebrile and denies chest pain or palpitations. Patient reports her left knee continues to hurt although manageable. Review of systems: Constitutional: No reports of fatigue, fever, or chills Cardiovascular: No reports of chest pain or palpitations Respiratory: reports of shortness of breath with exertion, reports is improving GI: reports of nausea, no vomiting, or diarrhea, reports abdominal discomfort in the mid epigastric region : No reports of dysuria or retention Neurovascular: No reports of weakness or numbness, reports left knee pain with some swelling although manageable All medications have been reviewed Physical exam: Gen: This is a 68-year-old female who is awake, alert oriented x 3, well- developed, well-nourished, morbidly obese, elderly appearing HEENT: Head is atraumatic, normocephalic. Pupils equal, round. Sclerae is anicteric. NECK: Supple. No JVD. No lymphadenopathy. No thyromegaly. LUNGS: Diminished breath sounds bilaterally otherwise clear to auscultation. No wheezes or rhonchi. No intercostal retractions. HEART: S1, S2 are muffled. ABDOMEN: Soft. Obese tender in the mid epigastric area in a bandlike feeling local. Bowel sounds are present. No masses. No tenderness. EXTREMITIES: No pedal edema. No calf tenderness. Left knee pain on palpation, full range of motion noted on exam NEUROLOGICAL: Patient is awake, alert and oriented x3. Cranial nerves 2 through 12 are grossly intact. Assessment: Acute on chronic CHF exacerbation, systolic dysfunction History of COVID 04/26 Mid epigastric abdominal pain, concerns for possible ileus noted on imaging Left knee pain, status post fall, ruled out fractures Obstructive sleep apnea not on CPAP therapy History of multiple PE,DVT, on Eliquis CAD, history of stent Hypertension Hyperlipidemia Hypothyroidism History of GI bleeding History of CVA/TIA with some residual right-sided weakness Peripheral neuropathy Chronic pain syndrome with nerve stimulator in back, unable to have MRI Fibromyalgia Morbid obesity,status post Alex-en-Y gastric bypass surgery 30 years ago,BMI 4 8.8 Hiatal hernia History of Raynaud's syndrome GI prophylaxis DVT prophylaxis Full code Plan: Patient currently continues on telemetry monitoring being monitored by cardiology recommending to continue with IV diuresis and can decrease the dose to once daily possibly transition to oral in the next 1 day and outpatient follow-up. Patient reports some continued shortness of breath will continue DuoNebs 3 times daily Patient reports midepigastric abdominal pain and underwent acute x-ray abdomen which is suggestive of possible ileus. Will decrease diet to clear liquids and consult general surgery for input and recommendations. Continue Protonix twice daily. Patient having left knee pain and reports fell prior to admission, knee x-ray was negative for acute fractures and evaluated by orthopedics recommending possible brace and conservative management. Patient refusing a brace at this time due to the size of her leg and has been instructed to weight-bear as tolerated with continue ice and/or heat to the area and conservative measures with outpatient follow-up as needed. Encouraged elevating lower extremities while at rest. Possible discharge planning in the next 24 to 48 hours Due to multiple complex medical issues, prognosis is guarded Dr. Lee will resume care starting 07/24/2023 The impression and plan of care has been dictated by Ruba Vuong, Nurse Tariq burnham as directed. Dr. Darius MD I have performed a history and examination and MDM of this patient, discussed the same with the dictator, and agree with the dictator's assessment and plan as written ,documented as a scribe. Based on total visit time, I have performed more than 50% of the visit. Objective - Vital Signs Vital signs: Vital Signs Temp 97.5 F L 07/23/23 07:00 Pulse 76 07/23/23 10:02 Resp 17 07/23/23 07:00 BP 91/64 07/23/23 07:00 Pulse Ox 98 07/23/23 07:00 FiO2 Intake & Output 07/22/23 07/23/23 07/23/23 18:59 06:59 18:59 Output Total 1700 Balance -1700 Weight 120.2 kg Output: Urine 1700 Other: Voiding Method Toilet # Voids 4 - Labs CBC & Chem 7: 07/21/23 06:39 07/22/23 05:45 Labs: Abnormal Lab Results - Last 24 Hours (Table) 07/22/23 Range/Units 05:45 BUN 37.4 H (9.0-27.0) mg/dL BUN/Creatinine Ratio 46.75 H (12.00-20.00) Ratio
[2023-07-23] MEDS: LACTULOSE 20 GM/30 ML CUP PO SCH (17:50)
[2023-07-23] MEDS: PANTOPRAZOLE 40 MG/10 ML VIAL IVP SCH (21:11)
[2023-07-23] MEDS: FUROSEMIDE 10 MG/ML 4 ML VIAL IV SCH (21:12)
[2023-07-24 08:36] LABS: Basophils # (A) 0.04 X 10*3/uL (0.00-0.10); Basophils % (A) 0.5 %; Eosinophils # (A) 0.19 X 10*3/uL (0.04-0.35); Eosinophils % (A) 2.2 %; HCT 34.9 % (37.2-46.3); HGB 10.2 g/dL (12.0-15.0); Lymphocytes # (A) 1.41 X 10*3/uL (0.90-5.00); Lymphocytes % (A) 16.5 %; MCH 24.8 pg (27.0-32.0); MCHC 29.2 g/dL (32.0-37.0); MCV 84.9 FL (80.0-97.0); Mean Platelet Volume 9.6 FL (9.5-12.2); Monocytes # (A) 0.84 X 10*3/uL (0.20-1.00); Monocytes % (A) 9.8 %; NRBC Per 100 WBC 0 X 10*3/uL (0.00-0.01); Neutrophils # (A) 6.03 X 10*3/uL (1.80-7.70); Neutrophils % (A) 70.6 %; Platelet Count 374 X 10*3/uL (140-440); RBC 4.11 X 10*6/uL (4.10-5.20); RDW 21.7 % (11.5-14.5); WBC 8.54 X 10*3/uL (4.50-10.00)
[2023-07-24] MEDS: TORSEMIDE 20 MG TAB PO SCH (09:40)
--- NOTE | 2023-07-24 11:12 | P.PN ---
Subjective HISTORY OF PRESENT ILLNESS: The patient is a 68-year-old female patient with coronary artery disease and prior revascularization as well as cardiomyopathy with EF around 45% as well as hypertension and dyslipidemia and history of obstructive sleep apnea and history of DVT/PE was admitted to the hospital with heart failure July 22, 2023 The patient was seen and evaluated this morning. She is feeling slightly better. She is euvolemic on examination with clear breathing sounds bilaterally and she is currently not on oxygen. She has bilateral lower extremities nonpitting edema. No pain in the chest and no dizziness or lightheadedness and no feeling of heart racing or fluttering. She is on oral anticoagulation for history of DVT/PE. July 23, 2023 The patient was seen and evaluated this morning. She continues to have shortness of breath with exertion but no pain in the chest and no dizziness or lightheadedness and no feeling of heart racing or fluttering. The pressure is marginal and currently she is on high dose of Lasix IV which I am going to decrease. Continue monitor the kidney function and electrolytes. Examination r evealed diminished breathing sounds bilaterally and bilateral lower extremities edema July 24, 2023 Patient examined this morning at the bedside. Patient is currently receiving a breathing treatment at the time of examination. She reports improvement in her shortness of breath. She denies any chest pain or pressure. She remains on IV diuretics. PHYSICAL EXAM: VITAL SIGNS: Reviewed. GENERAL: Well-developed in no acute distress. NECK: Supple. No JVD or thyromegaly LUNGS: Respirations even and unlabored. Lungs essentially clear to auscultation bilaterally. HEART: Regular rate and rhythm. S1 and S2 heard. EXTREMITIES: Normal range of motion. No clubbing or cyanosis. Peripheral pulses intact. Mild bilateral lower extremity edema ASSESSMENT: Heart failure with reduced ejection fraction Coronary artery disease with prior revascularization Obstructive sleep apnea Obesity Multiple comorbid conditions including history of DVT/PE PLAN: Discontinue IV Lasix Resume Demadex. Increase dosage to 40 mg daily Continue additional cardiac medications Patient is currently stable from a cardiac standpoint with no further inpatient recommendations We will sign off. Please reconsult if needed. Nurse practitioner note has been reviewed by physician. Signing provider agrees with the documented findings, assessment, and plan of care documented by HOSPICE VOLUNTEER COORDINATOR as a scribe. Objective - Vital Signs Vital signs: Vital Signs Temp 97.7 F 04/22/24 07:00 Pulse 76 07/24/23 09:14 Resp 16 07/24/23 07:00 BP 100/63 07/24/23 07:00 Pulse Ox 99 07/24/23 07:00 FiO2 Intake & Output 07/23/23 07/24/23 07/24/23 18:59 06:59 18:59 Output Total 3800 Balance -3800 Weight 119.63 kg Output: Urine 3800 Other: Voiding Method Toilet # Voids 3 1 # Bowel Movements 1 2 - Labs CBC & Chem 7: 07/24/23 04:56 07/22/23 05:45 Labs: Abnormal Lab Results - Last 24 Hours (Table) 07/24/23 07/24/23 Range/Units 04:56 04:56 Hgb 10.2 L (12.0-15.0) g/dL Hct 34.9 L (37.2-46.3) % MCH 24.8 L (27.0-32.0) pg MCHC 29.2 L (32.0-37.0) g/dL RDW 21.7 H (11.5-14.5) % Magnesium 2.5 H (1.5-2.4) mg/dL
[2023-07-24] MEDS: IOPAMIDOL CONTRAST (ORAL USE) VIAL PO PRN (15:44)
--- NOTE | 2023-07-24 16:05 | P.PN ---
Subjective Progress Note Date: 07/24/23 H&P Date: 07/20/23 Chief Complaint: Progressive shortness of breath This is a 68-year-old female with past medical history significant for coronary artery disease, CVA with right-sided weakness, PE/DVT, GI bleed, hypertension, hyperlipidemia, obstructive sleep apnea not on CPAP, hypothyroidism, morbid obesity with previous Alex-en-Y gastric bypass, tachycardia Subu syndrome, congestive heart failure, anxiety/depression and multiple other medical issues presented to the ER with worsening dyspnea, weight gain of 14 pounds over the last week, since ,accompanied by orthopnea, productive cough with pale yellow sputum and increased lower extremity edema. Last week she followed up with her PCP and diuretics were increased without relief of symptoms. Denies chest pain, palpitations. Troponin negative x 1. proBNP 118.EKG reported sinus rhythm, chest x-ray reported nonacute. Afebrile, normal WBC, hemoglobin 11.3, baseline, platelets 378, INR 0.9, electrolytes within normal limits. BUN 33, creatinine 0.66. 07/24/2023 Reporting left sided abdominal pain accompanied by nausea. Completed acute abdominal series yesterday suggesting possible ileus moderate stool in the left side of the colon. Patient reports she is having soft bowel movements daily as well as flatus. diuresing well on Lasix IV push with 24-hour I&O reporting continued weight loss, of of nearly 5 kg since 07/19. denies chest pain, palpitations or shortness of breath. Maintaining O2 sats in the high 90s on room air. Afebrile, normal WBC. Hemoglobin 10.2, platelets 374. Objective - Vital Signs Vital signs: Vital Signs Temp 97.7 F 07/24/23 07:00 Pulse 76 07/24/23 09:14 Resp 16 07/24/23 07:00 BP 100/63 07/24/23 07:00 Pulse Ox 99 07/24/23 07:00 FiO2 Intake & Output 07/23/23 07/24/23 07/24/23 18:59 06:59 18:59 Output Total 3800 Balance -3800 Weight 119.63 kg Output: Urine 3800 Other: Voiding Method Toilet # Voids 3 1 # Bowel Movements 1 2 - Exam PHYSICAL EXAM: VITAL SIGNS: [As above] GENERAL: Alert and oriented x 3, morbidly obese, sitting up in bed, no acute distress HEENT: Normocephalic conjunctivae normal. eyes normal. NECK: Supple, no JVD. No thyroid enlargement. No LNs CARDIOVASCULAR: S1, S2 regular.. No murmur RESPIRATION: Unlabored, equal air entry, fine expiratory wheezing scattered throughout ABDOMEN: Obese, soft, left sided tenderness. No guarding. no masses palpable. LEGS: Decreasing edema bilateral lower extremities, greatest on the right. NERVOUS SYSTEM: Cranial N 2-12 grossly normal.No focal deficits. Strength and sensation grossly intact. Skin: Warm and dry, no rash - Labs CBC & Chem 7: 07/24/23 04:56 07/22/23 05:45 Labs: Abnormal Lab Results - Last 24 Hours (Table) 07/24/23 07/24/23 Range/Units 04:56 04:56 Hgb 10.2 L (12.0-15.0) g/dL Hct 34.9 L (37.2-46.3) % MCH 24.8 L (27.0-32.0) pg MCHC 29.2 L (32.0-37.0) g/dL RDW 21.7 H (11.5-14.5) % Magnesium 2.5 H (1.5-2.4) mg/dL Assessment and Plan Assessment: Acute on chronic CHF exacerbation, systolic dysfunction Abdominal pain , nausea ,possible ileus History of COVID 04/26 Obstructive sleep apnea not on CPAP therapy History of multiple PE,DVT, on Eliquis CAD, history of stent Hypertension Hyperlipidemia Hypothyroidism History of GI bleeding History of CVA/TIA with some residual right-sided weakness Peripheral neuropathy Chronic pain syndrome with nerve stimulator in back, unable to have MRI Fibromyalgia Morbid obesity,status post Alex-en-Y gastric bypass surgery 30 years ago,BMI 53 Hiatal hernia Raynolds syndrome Plan: Continue on current medication using ,monitoring and symptomatic treatment. General surgery consult in place, recommendations pending. PT/OT. Complaining of significant pain in her legs at night with Requip dose increased. IV diuretics transitioned to oral as per cardiology.Cardiology has signed off. The impression and plan of care has been dictated as directed. : I performed a history and examination of this patient, discussed the same with the dictator. I agree with the dictator's note ,documented as a scribe. Any additional findings or plans will be noted.
--- NOTE | 2023-07-24 17:42 | P.GSCN ---
History of Present Illness Consult date: 07/24/23 History of present illness: CHIEF COMPLAINT: Shortness of breath HISTORY OF PRESENT ILLNESS: This is a 68-year-old female who presented with shortness of breath and was found to have a CHF exacerbation. She is on IV Lasix. She is also complaining of abdominal pain in the left upper quadrant. She reports she has had chronic pain in the left upper quadrant since February 2021. She reports that she fell on last week and hit that left upper quadrant again. She is on Eliquis for history of blood clots. She has a surgical history of Alex-en-Y gastric bypass in 1993. She also reports what sounds like a hiatal hernia repair in 2000. She reports her last colonoscopy was in May 2021 with no significant findings. Last EGD 2021 patient reports that her bowel movements are soft and she is having flatus. Denies any nausea or vomiting. Abdominal x-ray series had reported enteritis versus ileus and moderate stool in the left colon. PAST MEDICAL HISTORY: See below PAST SURGICAL HISTORY: See below MEDICATIONS: See below ALLERGIES: See below SOCIAL HISTORY: No illicit drug use. REVIEW OF SYSTEMS: CONSTITUTIONAL: Denies fever or chills. HEENT: Denies blurred vision, vision changes, or eye pain. Denies hemoptysis CARDIOVASCULAR: Denies chest pain or pressure. RESPIRATORY: No shortness of breath. GASTROINTESTINAL: See HPI for pertinent findings HEMATOLOGIC: Denies bleeding disorders. GENITOURINARY: Denies any blood in urine or increased urinary frequency. SKIN: Denies pruitis. Denies rash. PHYSICAL EXAM: VITAL SIGNS: Reviewed GENERAL: Well-developed in no acute distress. HEENT: No sclera icterus. Extraocular movements grossly intact. Moist buccal mucosa. Head is atraumatic, normocephalic. No nasal drainage. ABDOMEN: Soft. Nondistended. Tenderness palpation left upper quadrant. No ecchymosis noted. NEUROLOGIC: Alert and oriented. Cranial nerves II through XII grossly intact. LABORATORY DATA: WBC 8.54 Hgb 10.2 IMAGING: ASSESSMENT: 1. Left upper quadrant abdominal pain 2. Enteritis versus ileus noted on x-ray 3. Constipation 4. Trauma to left upper quadrant. Patient had fall last week and hit the left upper quadrant of abdomen 5. Chronic abdominal pain 6. CHF exacerbation with reduced EF. Cardiology has placed patient on Demadex and signed off PLAN: -CT scan abdomen pelvis with oral contrast ordered for further evaluation of abdominal pain -Continue a clear liquid diet -Further recommendations forthcoming Physician Mortar Maker note has been reviewed by physician. Signing provider agrees with the documented findings, assessment, and plan of care. Past Medical History Past Medical History: Asthma, Coronary Artery Disease (CAD), Chest Pain / Angina, Heart Failure, COPD, CVA/TIA, Deep Vein Thrombosis (DVT), Fibromyalgia, GERD/Reflux, GI Bleed, Hearing Disorder / Deafness, Hyperlipidemia, Hypertension, Memory Impairment, Myocardial Infarction (OR), Osteoarthritis (OA), Pneumonia, Pulmonary Embolus (PE), Renal Disease, Respiratory Disorder, Seizure Disorder, Skin Disorder, Sleep Apnea/CPAP/BIPAP, Thyroid Disorder Additional Past Medical History / Comment(s): 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 Alex-en-Y gastric bypass for morbid obesity, has home o2 that was prescribed in 2019 but currently does not use Last Myocardial Infarction Date:: 2002 History of Any Multi-Drug Resistant Organisms: None Reported Past Surgical History: Bariatric Surgery, Hernia Repair, Hysterectomy, Joint Replacement, Orthopedic Surgery, Tubal Ligation Additional Past Surgical History / Comment(s): 10/19/19 PCI with stent, EGDs, colonoscopy/benign polyps, gastric bypass with revision, ventral and hiatal h ernia repair, bladder suspension, R rotator curr repair/revision, L knee arthroscopy, rectocele, perinealplasty, 07/05/20 left shoulder replacement, 11/11/21 right shoulder replacement Past Anesthesia/Blood Transfusion Reactions: Motion Sickness Past Psychological History: Anxiety, Depression Smoking Status: Never smoker Past Alcohol Use History: Rare Past Drug Use History: None Reported - Past Family History Mother Family Medical History: Coronary Artery Disease (CAD), Eye Disorder Additional Family Medical History / Comment(s): Mother is 91 yrs old Father Family Medical History: Myocardial Infarction (OR) Additional Family Medical History / Comment(s): Father of a massive OR at the age of 53 yrs. Medications and Allergies Home Medications Medication Instructions Recorded Confirmed Type rOPINIRole HCL [Requip] 3 mg PO DAILY 11/09/17 07/20/23 History Apixaban [Eliquis] 5 mg PO BID 01/07/22 07/20/23 History Ipratropium-Albuterol Nebulize 3 ml INHALATION RT-QID PRN 07/08/22 07/20/23 History [Duoneb 0.5 mg-3 mg/3 ml Soln] Ergocalciferol [Vitamin D2 (1250 1,250 mcg PO RALPH 10/10/22 07/20/23 History Mcg = [id number] Iu)] Levothyroxine Sodium [Synthroid] 88 mcg PO DAILY 10/10/22 07/20/23 History Albuterol Inhaler [Ventolin Hfa 1 - 2 puff INHALATION RT-Q6H PRN 04/26/23 07/20/23 History Inhaler] Fluticasone/Umeclidin/Vilanter 1 puff INHALATION RT-DAILY 04/26/23 07/20/23 History [Trelegy Ellipta 100-62.5-25] Topiramate [Topamax] 100 mg PO BID 04/26/23 07/20/23 History hydrOXYzine pamoate [Vistaril] 50 mg PO TID PRN 04/26/23 07/20/23 History tiZANidine [Zanaflex] 4 mg PO BID 04/26/23 07/20/23 History HYDROcodone/APAP 10-325MG [[place]ac 1 tab PO TID #9 tab 05/09/23 07/20/23 Rx 10-325] FLUoxetine HCL [PROzac] 60 mg PO DAILY cap 05/10/23 07/20/23 Rx ARIPiprazole [Abilify] 10 mg PO HS 07/20/23 07/20/23 History Butalb/APAP/Caff 50-325-40Mg 1 tab PO BID PRN 07/20/23 07/20/23 History [Fioricet 50-325-40] Gabapentin [Neurontin] 800 mg PO TID 07/20/23 07/20/23 History Losartan [Cozaar] 50 mg PO DAILY 07/20/23 07/20/23 History Nystatin 100,000 Unit/gm Powd 1 applic TOPICAL TID 07/20/23 07/20/23 History [Mycostatin Powder] Pregabalin [Lyrica] 200 mg PO TID 07/20/23 07/20/23 History Torsemide [Demadex] 20 mg PO DAILY 07/20/23 07/20/23 History Vortioxetine Hydrobromide 20 mg PO DAILY 07/20/23 07/20/23 History [Trintellix] rOPINIRole HCL [Requip] 6 mg PO HS 07/20/23 07/20/23 History Allergies Allergy/AdvReac Type Severity Reaction Status Date / Time adhesive tape Allergy Swelling Verified 07/20/23 09:06 cefprozil [From Cefzil] Allergy Unknown Verified 07/20/23 09:06 cyclobenzaprine Allergy Rash/Hives Verified 07/20/23 09:06 [From Flexeril] Sulfa (Sulfonamide Allergy Rash/Hives Verified 07/20/23 09:06 Antibiotics) valdecoxib [From Bextra] Allergy Unknown Verified 07/20/23 09:06 metaxalone [From Skelaxin] AdvReac Nausea & Verified 07/20/23 09:06 Vomiting Surgical - Exam Vital Signs Temp Pulse Resp BP Pulse Ox 97.8 F 61 20 149/68 100 07/20/23 02:12 07/20/23 02:12 07/20/23 02:12 07/20/23 02:12 07/20/23 02:12 Results - Labs 07/24/23 04:56 07/22/23 05:45 Abnormal Lab Results - Last 24 Hours (Table) 07/24/23 07/24/23 Range/Units 04:56 04:56 Hgb 10.2 L (12.0-15.0) g/dL Hct 34.9 L (37.2-46.3) % MCH 24.8 L (27.0-32.0) pg MCHC 29.2 L (32.0-37.0) g/dL RDW 21.7 H (11.5-14.5) % Magnesium 2.5 H (1.5-2.4) mg/dL
--- NOTE | 2023-07-24 17:47 | CT ---
EXAMINATION TYPE: CT abdomen pelvis wo con DATE OF EXAM: 07/24/2023 COMPARISON: 09/23/2013 HISTORY: abdominal pain CT DLP: 1289.8 mGycm Automated exposure control for dose reduction was used. TECHNIQUE: Helical acquisition of images was performed from the lung bases through the pelvis. FINDINGS: The lungs are clear. There are postsurgical changes involving the stomach and GE junction. Gallbladder is normal and there is no gallstone, wall thickening, pericholecystic fluid or distention . There is no biliary ductal dilatation. There is no organomegaly of the liver, pancreas, spleen or adrenal glands. There are no renal calcifications or hydronephrosis. The caliber of the abdominal aorta is normal and there is no retroperitoneal adenopathy or hemorrhage . The bowel loops are normal in caliber is no evidence of obstruction. No inflammatory changes are iden tified in the mesentery and there is no free intraperitoneal air or fluid. There is no pelvic mass, free fluid, abscess or adenopathy. There is mild diverticulosis of the colon without CT evidence of diverticulitis. There is a TENS unit in the dorsal lower thoracic spine. There is multilevel degenerative disc diseas e with no focal osseous lesion. IMPRESSION: No acute changes within the abdomen or pelvis. Postsurgical changes as described above.
[2023-07-24] MEDS ORDERED: ONDANSETRON 4 MG/2 ML VIAL IVP PRN (20:03)
[2023-07-25] MEDS ORDERED: HYDROcodone/APAP 10-325MG 1 EACH TAB PO PRN (07:12)
[2023-07-25 08:45] LABS: Basophils # (A) 0.05 X 10*3/uL (0.00-0.10); Basophils % (A) 0.8 %; Eosinophils # (A) 0.17 X 10*3/uL (0.04-0.35); Eosinophils % (A) 2.6 %; HCT 30.5 % (37.2-46.3); Lymphocytes # (A) 1.46 X 10*3/uL (0.90-5.00); Lymphocytes % (A) 22.4 %; MCH 24.2 pg (27.0-32.0); MCHC 29.5 g/dL (32.0-37.0); Mean Platelet Volume 9.9 FL (9.5-12.2); Monocytes # (A) 0.83 X 10*3/uL (0.20-1.00); Monocytes % (A) 12.7 %; NRBC Per 100 WBC 0 X 10*3/uL (0.00-0.01); Neutrophils # (A) 3.99 X 10*3/uL (1.80-7.70); Platelet Count 349 X 10*3/uL (140-440); RBC 3.72 X 10*6/uL (4.10-5.20); RDW 21.4 % (11.5-14.5); WBC 6.53 X 10*3/uL (4.50-10.00)
[2023-07-25 09:55] LABS: BUN/Creat Ratio 61.71 Ratio (12.00-20.00); Blood Urea Nitrogen 43.2 mg/dL (9.0-27.0); Calcium 8.6 mg/dL (8.7-10.3); Carbon Dioxide 24.2 mmol/L (21.6-31.8); Chloride 107 mmol/L (96-109); Glucose 70 mg/dL (70-110); Potassium 4.5 mmol/L (3.5-5.5); Sodium 142 mmol/L (135-145)
[2023-07-25] MEDS: PANTOPRAZOLE 40 MG TABLET PO SCH (09:58)
[2023-07-25 11:15] VITALS: BP 123/64; PULSE 74; RESP 16; TEMP 98.4
--- NOTE | 2023-07-25 11:17 | P.DS ---
Providers Date of admission: 07/24/23 11:43 Expected date of discharge: 07/25/23 Attending physician: Edd Lee MD Consults: 07/21/23 14:21 Consult Physician Urgent Consulting Provider: Rangel Aguilera Consult Reason/Comments: left knee pain, fall Do you want consulting provider notified?: Yes 07/23/23 16:21 Consult Physician Urgent Consulting Provider: Tae Abdi Consult Reason/Comments: abdominal pain, epigastric, possible ileus on imaging Do you want consulting provider notified?: Yes Primary care physician: Edd Lee MD Hospital Course: Final Diagnoses: Acute on chronic CHF exacerbation, systolic dysfunction, reduced EF. Cardiology increased Demadex and signed off. Left sided abdominal pain , nausea ,possible ileus. X-ray reporting enteritis versus ileus. Evaluated by surgery. Trauma to left upper quadrant. Patient reported fall last week hitting the upper quadrant of abdomen. History of COVID 04/26 Obstructive sleep apnea not on CPAP therapy History of multiple PE,DVT, on Eliquis CAD, history of stent Hypertension Hyperlipidemia Hypothyroidism History of GI bleeding History of CVA/TIA with some residual right-sided weakness Peripheral neuropathy Chronic pain syndrome with nerve stimulator in back, unable to have MRI Fibromyalgia Morbid obesity,status post Alex-en-Y gastric bypass surgery 30 years ago,BMI 53 Hiatal hernia Raynolds syndrome Hospital course:Chief Complaint: Progressive shortness of breath This is a 68-year-old female with past medical history significant for coronary artery disease, CVA with right-sided weakness, PE/DVT, GI bleed, hypertension, hyperlipidemia, obstructive sleep apnea not on CPAP, hypothyroidism, morbid obesity with previous Alex-en-Y gastric bypass, tachycardia Subu syndrome, congestive heart failure, anxiety/depression and multiple other medical issues presented to the ER with worsening dyspnea, weight gain of 14 pounds over the last week, since ,accompanied by orthopnea, productive cough with pale yellow sputum and increased lower extremity edema. Last week she followed up with her PCP and diuretics were increased without relief of symptoms. Denies chest pain, palpitations. Troponin negative x 1. proBNP 118.EKG reported sinus rhythm, chest x-ray reported nonacute. Afebrile, normal WBC, hemoglobin 11.3, baseline, platelets 378, INR 0.9, electrolytes within normal limits. BUN 33, creatinine 0.66. 07/24/2023 Reporting left sided abdominal pain accompanied by nausea. Completed acute abdominal series yesterday suggesting possible ileus moderate stool in the left side of the colon. Patient reports she is having soft bowel movements daily as well as flatus. diuresing well on Lasix IV push with 24-hour I&O reporting continued weight loss, of of nearly 5 kg since 07/19. denies chest pain, palpitations or shortness of breath. Maintaining O2 sats in the high 90s on room air. Afebrile, normal WBC. Hemoglobin 10.2, platelets 374. General surgery consult in place, recommendations pending. PT/OT. Complaining of significant pain in her legs at night with Requip dose increased. IV diuretics transitioned to oral as per cardiology.Cardiology has signed off. CT of abdomen pelvis reported no acute changes within the abdomen or pelvis; no retroperitoneal adenopathy or hemorrhage, no pelvic mass, free fluid, abscess or adenopathy, mild diverticulosis of the colon without evidence of diverticulitis.hemoglobin 9, platelets 349 .Diet advanced per surgery to regular this morning. Patient consumed 100%, tolerated well with no nausea vomiting or increase in abdominal pain. Positive bowel movements. Denies chest pain, palpitations or shortness of breath. Maintaining O2 sats in the mid to high 90s on room air. Afebrile. Reports improvement in bilateral lower extremity discomfort with increase in Requip. complains of generalized weakness. significant clinical improvement. Patient will be discharged to subacute rehab today in a stable condition with guarded prognosis. The impression and plan of care has been dictated as directed. : I performed a history and examination of this patient, discussed the same with the dictator. I agree with the dictator's note ,documented as a scribe. Any additional findings or plans will be noted. Patient Condition at Discharge: Stable Plan - Discharge Summary New Discharge Prescriptions: New rOPINIRole HCL [Requip] 6 mg PO 1500 #6 tablet Pantoprazole [Protonix] 40 mg PO DAILY tab Acetaminophen Tab [Tylenol] 650 mg PO Q6HR PRN tab PRN Reason: Fever And/ Or Pain rOPINIRole HCL [Ropinirole HCl] 3 mg PO DAILY #3 tab Lactulose [Cephulac] 10 gm PO TID ml Torsemide [Demadex] 40 mg PO DAILY tab Continue Apixaban [Eliquis] 5 mg PO BID Fluticasone/Umeclidin/Vilanter [Trelegy Ellipta 100-62.5-25] 1 puff INHALATION RT-DAILY Losartan [Cozaar] 50 mg PO DAILY Butalb/APAP/Caff 50-325-40Mg [Fioricet 50-325-40] 1 tab PO BID PRN PRN Reason: Migraine Headache Vortioxetine Hydrobromide [Trintellix] 20 mg PO DAILY Ipratropium-Albuterol Nebulize [Duoneb 0.5 mg-3 mg/3 ml Soln] 3 ml INHALATION RT-QID PRN PRN Reason: Shortness Of Breath Levothyroxine Sodium [Synthroid] 88 mcg PO DAILY Ergocalciferol [Vitamin D2 (1250 Mcg = 20271 Iu)] 1,250 mcg PO RALPH Albuterol Inhaler [Ventolin Hfa Inhaler] 1 - 2 puff INHALATION RT-Q6H PRN PRN Reason: Shortness Of Breath FLUoxetine HCL [PROzac] 60 mg PO DAILY cap Nystatin 100,000 Unit/gm Powd [Mycostatin Powder] 1 applic TOPICAL TID ARIPiprazole [Abilify] 10 mg PO HS Gabapentin [Neurontin] 800 mg PO TID #9 tab HYDROcodone/APAP 10-325MG [Hye 10-325] 1 tab PO TID #9 tab Topiramate [Topamax] 100 mg PO BID #6 tab Changed rOPINIRole HCL [Requip] 6 mg PO 2100 #6 tab Discontinued rOPINIRole HCL [Requip] 3 mg PO DAILY hydrOXYzine pamoate [Vistaril] 50 mg PO TID PRN PRN Reason: Anxiety tiZANidine [Zanaflex] 4 mg PO BID Pregabalin [Lyrica] 200 mg PO TID Torsemide [Demadex] 20 mg PO DAILY Discharge Medication List Apixaban [Eliquis] 5 mg PO BID 01/07/22 [History] Ipratropium-Albuterol Nebulize [Duoneb 0.5 mg-3 mg/3 ml Soln] 3 ml INHALATION RT-QID PRN 07/08/22 [History] Ergocalciferol [Vitamin D2 (1250 Mcg = 70858 Iu)] 1,250 mcg PO RALPH 10/10/22 [History] Levothyroxine Sodium [Synthroid] 88 mcg PO DAILY 10/10/22 [History] Albuterol Inhaler [Ventolin Hfa Inhaler] 1 - 2 puff INHALATION RT-Q6H PRN 04/26/23 [History] Fluticasone/Umeclidin/Vilanter [Trelegy Ellipta 100-62.5-25] 1 puff INHALATION RT-DAILY 04/26/23 [History] FLUoxetine HCL [PROzac] 60 mg PO DAILY cap 05/10/23 [Rx] ARIPiprazole [Abilify] 10 mg PO HS 07/20/23 [History] Butalb/APAP/Caff 50-325-40Mg [Fioricet 50-325-40] 1 tab PO BID PRN 07/20/23 [History] Losartan [Cozaar] 50 mg PO DAILY 07/20/23 [History] Nystatin 100,000 Unit/gm Powd [Mycostatin Powder] 1 applic TOPICAL TID 07/20/23 [History] Vortioxetine Hydrobromide [Trintellix] 20 mg PO DAILY 07/20/23 [History] Acetaminophen Tab [Tylenol] 650 mg PO Q6HR PRN tab 07/25/23 [Rx] Gabapentin [Neurontin] 800 mg PO TID #9 tab 07/25/23 [Rx] HYDROcodone/APAP 10-325MG [Hye 10-325] 1 tab PO TID #9 tab 07/25/23 [Rx] Lactulose [Cephulac] 10 gm PO TID ml 07/25/23 [Rx] Pantoprazole [Protonix] 40 mg PO DAILY tab 07/25/23 [Rx] Topiramate [Topamax] 100 mg PO BID #6 tab 07/25/23 [Rx] Torsemide [Demadex] 40 mg PO DAILY tab 07/25/23 [Rx] rOPINIRole HCL [Requip] 6 mg PO 1500 #6 tablet 07/25/23 [Rx] rOPINIRole HCL [Requip] 6 mg PO 2100 #6 tab 07/25/23 [Rx] rOPINIRole HCL [Ropinirole HCl] 3 mg PO DAILY #3 tab 07/25/23 [Rx] Follow up Appointment(s)/Referral(s): Edd Lee MD [Primary Care Provider] - 1 Week (After DC from subacute rehab) [facility], [NON-STAFF] - As Needed (Agency will contact you 24-48 hours after discharge to schedule an appointment.) Activity/Diet/Wound Care/Special Instructions: Lien subacute rehab CBC, BMP in 3 days Zinc oxide barrier cream every 4 hours as needed Discharge Disposition: TRANSFER TO SNF/ECF
[2023-07-25 12:00] VITALS: BMI 48.2
--- NOTE | 2023-07-25 15:37 | P.PN ---
Subjective Progress Note Date: 07/25/23 CHIEF COMPLAINT: Shortness of breath HISTORY OF PRESENT ILLNESS: Surgical service following in regards to patient's abdominal pain. Patient had a CT scan abdomen pelvis with oral contrast that reported no acute changes within the abdomen. Patient tolerating regular diet. She did have some small bowel movements. Her pain is decreased. Afebrile. The plan to discharge to [facility] today. PHYSICAL EXAM: VITAL SIGNS: Reviewed. GENERAL: Well-developed in no acute distress. ABDOMEN: Soft. Nondistended. Nontender. NEUROLOGIC: Alert and oriented. Cranial nerves II through XII grossly intact. ASSESSMENT: 1. Left upper quadrant abdominal pain. Improved 2. Constipation. Possible ileus 3. Trauma to left upper quadrant. Patient had fall last week and hit the left upper quadrant of abdomen 4. Chronic abdominal pain 5. CHF exacerbation with reduced EF. Cardiology has placed patient on Demadex and signed off PLAN: -Patient can be discharge from surgical standpoint. Patient tolerated regular diet. -Continue good bowel regimen at discharge Physician Bench Scientist note has been reviewed by physician. Signing provider agrees with the documented findings, assessment, and plan of care. Objective - Vital Signs Vital signs: Vital Signs Temp 98.4 F 07/25/23 08:00 Pulse 74 07/25/23 08:00 Resp 16 07/25/23 08:00 BP 123/64 07/25/23 08:00 Pulse Ox 95 07/25/23 08:00 FiO2 Intake & Output 07/24/23 07/25/23 07/25/23 18:59 06:59 18:59 Intake Total 480 Output Total 100 Balance -100 480 Weight 119.63 kg Intake: Oral 480 Output: Urine 100 Other: # Voids 2 2 # Bowel Movements 3 - Labs CBC & Chem 7: 07/25/23 04:54 07/25/23 04:54 Labs: Abnormal Lab Results - Last 24 Hours (Table) 07/25/23 07/25/23 Range/Units 04:54 04:54 RBC 3.72 L (4.10-5.20) X 10*6/uL Hgb 9.0 L (12.0-15.0) g/dL Hct 30.5 L (37.2-46.3) % MCH 24.2 L (27.0-32.0) pg MCHC 29.5 L (32.0-37.0) g/dL RDW 21.4 H (11.5-14.5) % BUN 43.2 H (9.0-27.0) mg/dL BUN/Creatinine Ratio 61.71 H (12.00-20.00) Ratio Calcium 8.6 L (8.7-10.3) mg/dL
== END 2023-07-25 14:15 | disposition home health service (06) | DRG 388 ==
LOC: EC 01:49 → 4SSUR 05:47 → OBSVTOIN 07-24 11:43
PROVIDERS: ADMIT Family Medicine; ATTEND Family Medicine
DX: K56.7 Ileus, unspecified (principal); I50.23 Acute on chronic systolic (congestive) heart failure; I42.9 Cardiomyopathy, unspecified; I69.351 Hemiplegia and hemiparesis following cerebral infarction affecting right dominant side; Z68.43 Body mass index [BMI] 50.0-59.9, adult; I27.20 Pulmonary hypertension, unspecified; R62.7 Adult failure to thrive; I11.0 Hypertensive heart disease with heart failure; J44.89 Other specified chronic obstructive pulmonary disease; E66.01 Morbid (severe) obesity due to excess calories; G40.909 Epilepsy, unspecified, not intractable, without status epilepticus; K52.9 Noninfective gastroenteritis and colitis, unspecified; D64.9 Anemia, unspecified; E03.9 Hypothyroidism, unspecified; F32.A Depression, unspecified; I73.00 Raynaud's syndrome without gangrene; G47.33 Obstructive sleep apnea (adult) (pediatric); G89.4 Chronic pain syndrome; M79.7 Fibromyalgia; E78.5 Hyperlipidemia, unspecified; G62.9 Polyneuropathy, unspecified; I25.10 Atherosclerotic heart disease of native coronary artery without angina pectoris; I25.2 Old myocardial infarction; K21.9 Gastro-esophageal reflux disease without esophagitis; K44.9 Diaphragmatic hernia without obstruction or gangrene; F41.9 Anxiety disorder, unspecified; K59.00 Constipation, unspecified; M17.12 Unilateral primary osteoarthritis, left knee; H91.90 Unspecified hearing loss, unspecified ear; Z79.01 Long term (current) use of anticoagulants; Z79.51 Long term (current) use of inhaled steroids; Z79.891 Long term (current) use of opiate analgesic; Z79.890 Hormone replacement therapy; Z79.899 Other long term (current) drug therapy; Z98.84 Bariatric surgery status; Z86.718 Personal history of other venous thrombosis and embolism; Z86.711 Personal history of pulmonary embolism; Z95.5 Presence of coronary angioplasty implant and graft; Z96.611 Presence of right artificial shoulder joint; Z96.612 Presence of left artificial shoulder joint; Z96.82 Presence of neurostimulator; Z86.16 Personal history of COVID-19; Z71.3 Dietary counseling and surveillance; Z88.1 Allergy status to other antibiotic agents; Z88.2 Allergy status to sulfonamides; Z88.8 Allergy status to other drugs, medicaments and biological substances
CPT/HCPCS: 36415; 71046; 74022; 74176; 80048; 80053; 83605; 83735; 83880; 84484; 85025; 85610; 85730; 93005; 94640; 94664; 96374; 96376; 99285

== ENCOUNTER 2023-08-06 00:03 | Observation (INO) | payer MEDICARE ==
[2023-08-06] MEDS: HYDROmorphone 1 MG/ML 1 ML SYRINGE IM STA (01:49)
--- NOTE | 2023-08-06 02:50 | ED ---
Extremity Problem HPI - General Source: patient Mode of arrival: ambulatory Limitations: no limitations <Dejon Ramirez - Last Filed: 08/06/23 04:03> <Maury Arriaga - Last Filed: 08/07/23 05:09> - General Chief complaint: Extremity Problem,Nontraumatic Stated complaint: arm pain Time Seen by Provider: 08/06/23 00:59 - History of Present Illness Initial comments: 68-year-old female presenting to the ED with a chief complaint of right shoulder pain. Reports prior shoulder surgery with hardware in her right shoulder. States that her shoulder normally pops out of place and she is able to get it back in today. States that she was trying to sit up in bed using her elbow for assistance when her right shoulder popped out of place and has been unable to get it to pop back in place prompting presentation to the ED for further evaluation. No other injuries at this time. Reports her surgeon performed this was from [facility]. No other complaints at this time. (Dejon Ramirez) - Related Data Home Medications Medication Instructions Recorded Confirmed Apixaban [Eliquis] 5 mg PO BID 01/07/22 07/20/23 Ipratropium-Albuterol Nebulize 3 ml INHALATION RT-QID PRN 07/08/22 07/20/23 [Duoneb 0.5 mg-3 mg/3 ml Soln] Ergocalciferol [Vitamin D2 (1250 1,250 mcg PO RALPH 10/10/22 07/20/23 Mcg = 56415 Iu)] Levothyroxine Sodium [Synthroid] 88 mcg PO DAILY 10/10/22 07/20/23 Albuterol Inhaler [Ventolin Hfa 1 - 2 puff INHALATION RT-Q6H PRN 04/26/23 07/20/23 Inhaler] Fluticasone/Umeclidin/Vilanter 1 puff INHALATION RT-DAILY 04/26/23 07/20/23 [Trelegy Ellipta 100-62.5-25] ARIPiprazole [Abilify] 10 mg PO HS 07/20/23 07/20/23 Butalb/APAP/Caff 50-325-40Mg 1 tab PO BID PRN 07/20/23 07/20/23 [Fioricet 50-325-40] Losartan [Cozaar] 50 mg PO DAILY 07/20/23 07/20/23 Nystatin 100,000 Unit/gm Powd 1 applic TOPICAL TID 07/20/23 07/20/23 [Mycostatin Powder] Vortioxetine Hydrobromide 20 mg PO DAILY 07/20/23 07/20/23 [Trintellix] Previous Rx's Medication Instructions Recorded FLUoxetine HCL [PROzac] 60 mg PO DAILY cap 05/10/23 Acetaminophen Tab [Tylenol] 650 mg PO Q6HR PRN tab 07/25/23 Gabapentin [Neurontin] 800 mg PO TID #9 tab 07/25/23 HYDROcodone/APAP 10-325MG [[place]man 1 tab PO TID #9 tab 07/25/23 10-325] Lactulose [Cephulac] 10 gm PO TID ml 07/25/23 Pantoprazole [Protonix] 40 mg PO DAILY tab 07/25/23 Topiramate [Topamax] 100 mg PO BID #6 tab 07/25/23 Torsemide [Demadex] 40 mg PO DAILY tab 07/25/23 rOPINIRole HCL [Requip] 6 mg PO 1500 #6 tablet 07/25/23 rOPINIRole HCL [Requip] 6 mg PO 2100 #6 tab 07/25/23 rOPINIRole HCL [Ropinirole HCl] 3 mg PO DAILY #3 tab 07/25/23 HYDROcodone/APAP 10-325MG [Pullman 1 tab PO Q4HR PRN 3 Days #8 tab 08/06/23 10-325] Allergies Allergy/AdvReac Type Severity Reaction Status Date / Time adhesive tape Allergy Swelling Verified 08/06/23 00:12 cefprozil [From Cefzil] Allergy Unknown Verified 08/06/23 00:12 cyclobenzaprine Allergy Rash/Hives Verified 08/06/23 00:12 [From Flexeril] Sulfa (Sulfonamide Allergy Rash/Hives Verified 08/06/23 00:12 Antibiotics) torsemide Allergy Nausea Verified 08/06/23 00:12 valdecoxib [From Bextra] Allergy Unknown Verified 08/06/23 00:12 metaxalone [From Skelaxin] AdvReac Nausea & Verified 08/06/23 00:12 Vomiting Review of Systems ROS Other: All systems not noted in ROS Statement are negative. <Cabatu,Dejon - Last Filed: 08/06/23 04:03> ROS Other: All systems not noted in ROS Statement are negative. <Maury Arriaga - Last Filed: 08/07/23 05:09> ROS Statement: Those systems with pertinent positive or pertinent negative responses have been documented in the HPI. Past Medical History Past Medical History: Asthma, Coronary Artery Disease (CAD), Chest Pain / Angina, Heart Failure, COPD, CVA/TIA, Deep Vein Thrombosis (DVT), Fibromyalgia, GERD/Reflux, GI Bleed, Hearing Disorder / Deafness, Hyperlipidemia, Hypertension, Memory Impairment, Myocardial Infarction ([place]), Osteoarthritis (OA), Pneumonia, Pulmonary Embolus (PE), Renal Disease, Respiratory Disorder, Seizure Disorder, Skin Disorder, Sleep Apnea/CPAP/BIPAP, Thyroid Disorder Additional Past Medical History / Comment(s): 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 Alex-en-Y gastric bypass for morbid obesity, has home o2 that was prescribed in 2019 but currently does not use Last Myocardial Infarction Date:: 2002 History of Any Multi-Drug Resistant Organisms: None Reported Past Surgical History: Bariatric Surgery, Hernia Repair, Hysterectomy, Joint Replacement, Orthopedic Surgery, Tubal Ligation Additional Past Surgical History / Comment(s): 10/19/19 PCI with stent, EGDs, colonoscopy/benign polyps, gastric bypass with revision, ventral and hiatal hernia repair, bladder suspension, R rotator curr repair/revision, L knee arthro scopy, rectocele, perinealplasty, 07/05/20 left shoulder replacement, 11/11/21 right shoulder replacement Past Anesthesia/Blood Transfusion Reactions: Motion Sickness Past Psychological History: Anxiety, Depression Smoking Status: Never smoker Past Alcohol Use History: Rare Past Drug Use History: None Reported - Past Family History Mother Family Medical History: Coronary Artery Disease (CAD), Eye Disorder Additional Family Medical History / Comment(s): Mother is 91 yrs old Father Family Medical History: Myocardial Infarction ([place]) Additional Family Medical History / Comment(s): Father of a massive [place] at the age of 53 yrs. <Dejon Ramirez Last Filed: 08/06/23 04:03> General Exam Limitations: no limitations General appearance: alert, in distress Neck exam: Present: normal inspection Respiratory exam: Present: normal lung sounds bilaterally Cardiovascular Exam: Present: tachycardia GI/Abdominal exam: Present: soft Extremities exam: Present: other (Right shoulder shows significant pain upon attempting to range the shoulder. There is tactile step-off. Distal sensation intact. Radial pulses intact.) Back exam: Present: normal inspection Neurological exam: Present: alert, oriented X3 Skin exam: Present: warm, dry <Dejon Ramirez - Last Filed: 08/06/23 04:03> Course Vital Signs 08/06/23 08/06/23 08/06/23 00:10 02:45 02:59 Temperature 97.4 F L Pulse Rate 75 71 67 Respiratory 147 H 19 13 Rate Blood Pressure 147/83 136/76 141/74 O2 Sat by Pulse 96 96 99 Oximetry 08/06/23 08/06/23 08/06/23 03:55 04:08 05:33 Temperature Pulse Rate 63 74 63 Respiratory 20 13 17 Rate Blood Pressure 153/74 153/74 154/70 O2 Sat by Pulse 98 99 97 Oximetry 08/06/23 05:57 Temperature 97.9 F Pulse Rate 70 Respiratory 17 Rate Blood Pressure 143/74 O2 Sat by Pulse 95 Oximetry Procedures - Orthopedic Joint Reduction Joint #1 Consent Obtained: verbal consent Side: right Joint Reduction Location: shoulder Analgesia: procedural sedation Shoulder Technique Used (if applicable): traction/counter-traction Post-Reduction Neuro Exam: intact Post-Reduction Vascular Exam: intact Post Reduction X-Ray Obtained: Yes Post Reduction X-Ray Results: not reduced Splint Applied: Yes (Sling applied) Patient Tolerated Procedure: well, no complications <Maury Arriaga Last Filed: 08/07/23 05:09> Medical Decision Making <Dejon Ramirez - Last Filed: 08/06/23 04:03> - Lab Data Result diagrams: 08/06/23 04:57 08/06/23 04:57 <Maury Arriaga - Last Filed: 08/07/23 05:09> - Medical Decision Making Was pt. sent in by a medical professional or institution (, [facility], [facility], urgent care, hospital, or [facility]...) When possible be specific @ -No Did you speak to anyone other than the patient for history (EMS, parent, family, police, friend...)? What history was obtained from this source @ -No Did you review nursing and triage notes (agree or disagree)? Why? @ -I reviewed and agree with nursing and triage notes Were old charts reviewed (outside hosp., previous admission, EMS record, old EKG, old radiological studies, urgent care reports/EKG's, [facility] records)? Report findings @ -No old charts were reviewed Differential Diagnosis (chest pain, altered mental status, abdominal pain women, abdominal pain men, vaginal bleeding, weakness, fever, dyspnea, syncope, headache, dizziness, GI bleed, back pain, seizure, CVA, palpatations, mental health, musculoskeletal)? @ -Differential Musculoskeletal Muscular strain, contusion, ligament sprain, fracture, arthritis, septic arth ritis, bursitis, cellulitis, muscle spasm, nerve compression, DVT, arterial occlusion, herpes zoster, electrolyte abnormality, tumor.... This is not meant to be in all inclusive list EKG interpreted by me (3pts min.). @ -None X-rays interpreted by me (1pt min.). @ -X-ray interpreted by me which shows dislocation of the right shoulder. CT interpreted by me (1pt min.). @ -None done U/S interpreted by me (1pt. min.). @ -None done What testing was considered but not performed or refused? (CT, X-rays, U/S, labs)? Why? @ -None What meds were considered but not given or refused? Why? @ -None Did you discuss the management of the patient with other professionals (professionals i.e. [facility] Adams, [facility], lab, RT, psych nurse, oncology social worker, surfboard designer, teacher, ecological technical officer, case repairer)? Give summary @ -My attending physician, Dr. Arriaga, discussed the case with Dr. Aguilera, who will take the patient to the OR tomorrow. Was smoking cessation discussed for >3mins.? @ -No Was critical care preformed (if so, how long)? @ -No Were there social determinants of health that impacted care today? How? (Homelessness, low income, unemployed, alcoholism, drug addiction, transportation, low edu. Level, literacy, decrease access to med. care, detention, rehab)? @ -No Was there de-escalation of care discussed even if they declined (Discuss DNR or withdrawal of care, Hospice)? DNR status @ -No What co-morbidities impacted this encounter? (DM, HTN, Smoking, COPD, CAD, Cancer, CVA, ARF, Chemo, Hep., AIDS, mental health diagnosis, sleep apnea, morbid obesity)? @ -None Was patient admitted / discharged? Hospital course, mention meds given and route, prescriptions, significant lab abnormalities, going to OR and other pertinent info. @ -Admission 68-year-old female presenting to the ED with right shoulder pain reporting that she thinks that her shoulder is out of place. X-ray imaging did confirm this. Reduction was attempted however unsuccessful. After discussion with orthopedics, patient will be admitted brought to the operating room. Undiagnosed new problem with uncertain prognosis? @ -No Drug Therapy requiring intensive monitoring for toxicity (Heparin, Nitro, Insulin, Cardizem)? @ -No Were any procedures done? @ -No Diagnosis/symptom? @ -Right shoulder dislocation Acute, or Chronic, or Acute on Chronic? @ -Acute Uncomplicated (without systemic symptoms) or Complicated (systemic symptoms)? @ -Uncomplicated Side effects of treatment? @ -No Exacerbation, Progression, or Severe Exacerbation? @ -No Poses a threat to life or bodily function? How? (Chest pain, [place], [place], pneumonia, PE, COPD, DKA, ARF, appy, cholecystitis, CVA, Diverticulitis, Homicidal, Suicidal, threat to staff... and all critical care pts) @ -No (Dejon Ramirez) This patient is a 68-year-old woman, with history of reverse shoulder replacement, by Dr. Beverly, Who presents with shoulder dislocation. Did attempt reduction through gentle traction after Valium administration, but not able to reduce patient's shoulder, therefore case discussed with Dr. Aguilera who will perform reduction in the OR under general anesthesia. (Maury Arriaga) Disposition Time of Disposition: 03:45 <Dejon Ramirez - Last Filed: 08/06/23 04:03> <Maury Arriaga - Last Filed: 08/07/23 05:09> Clinical Impression: Dislocation of right shoulder joint Disposition: ADMITTED IP TO THIS HOSP Condition: Good
[2023-08-06] MEDS ORDERED: NALOXONE 0.4 MG/ML 1 ML VIAL IV PRN (03:40)
[2023-08-06] MEDS ORDERED: ONDANSETRON 4 MG/2 ML VIAL IVP PRN (03:40)
[2023-08-06] MEDS: SODIUM CHLORIDE 0.9% 1,000 ML IV SCH (03:52)
[2023-08-06] MEDS: fentaNYL (PF) 50 MCG/ML 2 ML AMP IVP PRN (03:52)
--- NOTE | 2023-08-06 04:35 | XR ---
EXAM: XR Right Shoulder Complete, 2 or More Views CLINICAL HISTORY: r/o fx dislocation TECHNIQUE: Two or more views of the right shoulder. COMPARISON: Chest x-ray 07/20/2023. FINDINGS: Bones are osteopenic. Redemonstrated right shoulder bipolar arthroplasty. Dislocation of the humeral component relative to the acetabular component, possibly posterior, not well characterized. Humeral head component remains in alignment with the scapula. Bones are osteopenic. No definite acute fracture. Acromioclavicular joint is intact. IMPRESSION: Redemonstrated right shoulder bipolar arthroplasty. Dislocation of the humeral component relative to the acetabular component, possibly posterior, not well characterized.
[2023-08-06 05:25] LABS: Anisocytosis Slight; Basophils % (A) 1 %; Eosinophils # (A) 0.2 k/uL (0-0.7); Eosinophils % (A) 3 %; HCT 33.4 % (34.0-46.0); HGB 10.5 gm/dL (11.4-16.0); Hypochromasia Slight; Lymphocytes # (A) 2.1 k/uL (1.0-4.8); Lymphocytes % (A) 31 %; MCHC 31.4 g/dL (31.0-37.0); MCV 82.7 fL (80.0-100.0); Mean Platelet Volume 7.6; Microcytosis Slight; Monocytes # (A) 0.6 k/uL (0-1.0); Monocytes % (A) 8 %; Neutrophils # (A) 3.8 k/uL (1.3-7.7); Neutrophils % (A) 55 %; Platelet Count 343 k/uL (150-450); RBC 4.04 m/uL (3.80-5.40); RDW 19.5 % (11.5-15.5); WBC 6.9 k/uL (3.8-10.6)
[2023-08-06 05:36] LABS: ALT 12 U/L (4-34); AST 21 U/L (14-36); African American GFR (CKD) >90 (>60 ml/min/1.73 sqM); Albumin 3.1 g/dL (3.5-5.0); Alkaline Phosphatase 107 U/L (38-126); Anion Gap 4 mmol/L; Blood Urea Nitrogen 33 mg/dL (7-17); Calcium 8.1 mg/dL (8.4-10.2); Carbon Dioxide 24 mmol/L (22-30); Chloride 109 mmol/L (98-107); Glucose 87 mg/dL (74-99); Non-African American GFR(CKD) >90 (>60 ml/min/1.73 sqM); Potassium 4.4 mmol/L (3.5-5.1); Sodium 137 mmol/L (137-145); Total Bilirubin 0.3 mg/dL (0.2-1.3); Total Protein 5.6 g/dL (6.3-8.2)
--- NOTE | 2023-08-06 05:36 | XR ---
EXAM: XR Chest, 1 View CLINICAL HISTORY: ITS.REASON XR Reason: presurgical TECHNIQUE: Frontal view of the chest. COMPARISON: Radiograph dated 07/20/2023 FINDINGS: Lungs: Unremarkable. No consolidation. Pleural space: Unremarkable. No pneumothorax. Heart: Moderate to severe enlargement of the heart. Mediastinum: Linear metallic densities are seen overlying the mid mediastinum. Bones/joints: Bilateral shoulder arthroplasties are in place. Degenerative changes is seen in the spine. No acute fracture. Vasculature: Calcifications overlie the aorta. Upper abdomen: Eventration of the right hemidiaphragm. IMPRESSION: No acute findings seen within the chest.
[2023-08-06 05:44] LABS: INR 0.9 (<1.2); Partial Thromboplastin Time 22.2 sec (22.0-30.0)
--- NOTE | 2023-08-06 05:53 | XR ---
EXAM: XR Right Shoulder Complete, 2 or More Views CLINICAL HISTORY: ITS.REASON XR Reason: reduction TECHNIQUE: Two or more views of the right shoulder. COMPARISON: No relevant prior studies available. FINDINGS: Bones/joints: Apparent dislocation of the humeral component. Right shoulder arthroplasty is in place. Question of lucency visualized adjacent to the proximal humeral arthroplasty. No acute fracture. Soft tissues: Unremarkable. Lungs: The visualized right lung is clear. IMPRESSION: Dislocation of the humeral component of the right shoulder arthroplasty with question of a small adjacent proximal fracture.
[2023-08-06] MEDS: HYDROmorphone 0.5 MG/0.5 ML SYRINGE IVP PRN (05:55)
--- NOTE | 2023-08-06 08:08 | P.HPOR ---
History of Present Illness H&P Date: 08/06/23 The patient is a very pleasant 68-year-old female with multiple medical problems including a BMI of 49.4 who is admitted under my care after failed attempts in the ER at reduction of the right dislocated reverse shoulder arthroplasty. According to the patient she underwent a reverse total shoulder replacement by Dr. Barrett at an outside facility a little less than 2 years ago. She has had increasing pain and popping over the last several weeks. Last night she attempted to push up on her right elbow and felt a pop in her shoulder. She had immediate pain and inability to use her shoulder. She presented to the emergency department. X-rays showed a shoulder dislocation. An attempt was mad e at closed reduction and was unsuccessful. The patient was then admitted under my care. This morning the patient is complaining of isolated pain in her right shoulder. 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 Alex-en-Y gastric bypass for morbid obesity, has home o2 that was prescribed in 2019 but currently does not use Last Myocardial Infarction Date:: 2002 History of Any Multi-Drug Resistant Organisms: None Reported Past Surgical History: Bariatric Surgery, Hernia Repair, Hysterectomy, Joint Replacement, Orthopedic Surgery, Tubal Ligation Additional Past Surgical History / Comment(s): 10/19/19 PCI with stent, EGDs, colonoscopy/benign polyps, gastric bypass with revision, ventral and hiatal hernia repair, bladder suspension, R rotator curr repair/revision, L knee arthroscopy, rectocele, perinealplasty, 07/05/20 left shoulder replacement, 11/11/21 right shoulder replacement Past Anesthesia/Blood Transfusion Reactions: Motion Sickness Past Psychological History: Anxiety, Depression Smoking Status: Never smoker Past Alcohol Use History: Rare Past Drug Use History: None Reported - Past Family History Mother Family Medical History: Coronary Artery Disease (CAD), Eye Disorder Additional Family Medical History / Comment(s): Mother is 91 yrs old Father Family Medical History: Myocardial Infarction ([place]) Additional Family Medical History / Comment(s): Father of a massive [place] at the age of 53 yrs. Medications and Allergies Home Medications Medication Instructions Recorded Confirmed Type Apixaban [Eliquis] 5 mg PO BID 01/07/22 07/20/23 History Ipratropium-Albuterol Nebulize 3 ml INHALATION RT-QID PRN 07/08/22 07/20/23 History [Duoneb 0.5 mg-3 mg/3 ml Soln] Ergocalciferol [Vitamin D2 (1250 1,250 mcg PO RALPH 10/10/22 07/20/23 History Mcg = 88580 Iu)] Levothyroxine Sodium [Synthroid] 88 mcg PO DAILY 10/10/22 07/20/23 History Albuterol Inhaler [Ventolin Hfa 1 - 2 puff INHALATION RT-Q6H PRN 04/26/23 07/20/23 History Inhaler] Fluticasone/Umeclidin/Vilanter 1 puff INHALATION RT-DAILY 04/26/23 07/20/23 History [Trelegy Ellipta 100-62.5-25] FLUoxetine HCL [PROzac] 60 mg PO DAILY cap 05/10/23 07/20/23 Rx ARIPiprazole [Abilify] 10 mg PO HS 07/20/23 07/20/23 History Butalb/APAP/Caff 50-325-40Mg 1 tab PO BID PRN 07/20/23 07/20/23 History [Fioricet 50-325-40] Losartan [Cozaar] 50 mg PO DAILY 07/20/23 07/20/23 History Nystatin 100,000 Unit/gm Powd 1 applic TOPICAL TID 07/20/23 07/20/23 History [Mycostatin Powder] Vortioxetine Hydrobromide 20 mg PO DAILY 07/20/23 07/20/23 History [Trintellix] Acetaminophen Tab [Tylenol] 650 mg PO Q6HR PRN tab 07/25/23 Rx Gabapentin [Neurontin] 800 mg PO TID #9 tab 07/25/23 Rx HYDROcodone/APAP 10-325MG [[place] 1 tab PO TID #9 tab 07/25/23 Rx 10-325] Lactulose [Cephulac] 10 gm PO TID ml 07/25/23 Rx Pantoprazole [Protonix] 40 mg PO DAILY tab 07/25/23 Rx Topiramate [Topamax] 100 mg PO BID #6 tab 07/25/23 Rx Torsemide [Demadex] 40 mg PO DAILY tab 07/25/23 Rx rOPINIRole HCL [Requip] 6 mg PO 1500 #6 tablet 07/25/23 Rx rOPINIRole HCL [Requip] 6 mg PO 2100 #6 tab 07/25/23 Rx rOPINIRole HCL [Ropinirole HCl] 3 mg PO DAILY #3 tab 07/25/23 Rx Allergies Allergy/AdvReac Type Severity Reaction Status Date / Time adhesive tape Allergy Swelling Verified 08/06/23 00:12 cefprozil [From Cefzil] Allergy Unknown Verified 08/06/23 00:12 cyclobenzaprine Allergy Rash/Hives Verified 08/06/23 00:12 [From Flexeril] Sulfa (Sulfonamide Allergy Rash/Hives Verified 08/06/23 00:12 Antibiotics) torsemide Allergy Nausea Verified 08/06/23 00:12 valdecoxib [From Bextra] Allergy Unknown Verified 08/06/23 00:12 metaxalone [From Skelaxin] AdvReac Nausea & Verified 08/06/23 00:12 Vomiting Physical Examination The patient is alert and oriented. She is able to answer questions. Her head is normocephalic and atraumatic. She demonstrates nonlabored breathing. She is obese. A focused exam of the right upper extremity was conducted. Her arm is in a sling. There are multiple healed surgical incisions over the shoulder. There is no erythema or warmth. There is pain with any attempts at passive range of motion. Sensation is intact to light touch over the lateral shoulder in the distribution of the axillary nerve. She is moving all of her fingers. Results X-rays of the right shoulder show a dislocated reverse total shoulder with no evidence of fracture. - Labs Labs: Abnormal Lab Results - Last 24 Hours (Table) 08/06/23 08/06/23 Range/Units 04:57 04:57 Hgb 10.5 L (11.4-16.0) gm/dL Hct 33.4 L (34.0-46.0) % RDW 19.5 H (11.5-15.5) % Chloride 109 H (98-107) mmol/L BUN 33 H (7-17) mg/dL Calcium 8.1 L (8.4-10.2) mg/dL Total Protein 5.6 L (6.3-8.2) g/dL Albumin 3.1 L (3.5-5.0) g/dL H & H 08/06/23 Range/Units 04:57 Hgb 10.5 L (11.4-16.0) gm/dL Hct 33.4 L (34.0-46.0) % Coagulation 08/06/23 Range/Units 04:57 INR 0.9 (<1.2) Result Diagrams: 08/06/23 04:57 08/06/23 04:57 Assessment and Plan Assessment: Right dislocated reverse total shoulder arthroplasty Morbid obesity with BMI 49.4 Plan: I met with the patient to discuss treatment options this morning. We discussed that I am not a shoulder surgeon and do not perform reverse shoulder arthroplasties, particulary revisions, but would attempt a reduction of her shoulder due to the urgent nature of the dislocated joint. This will be done in the operating room under general anesthesia. If it is unable to be reduced the patient will need to either discharge and follow-up with Dr. Barrett in the office or need to be transferred to a facility under Dr. Barrett's care. If the shoulder is successfully reduced the patient will be placed in a sling and will discharge home to follow-up with Dr. Barrett. All discharge instructions and long-term care will be under the management of Dr. Barrett. Time with Patient: Greater than 30
[2023-08-06] MEDS: LACTATED RINGERS 1,000 ML IV ONE (09:18)
[2023-08-06] MEDS ORDERED: fentaNYL (PF) 50 MCG/ML 2 ML AMP ONE (09:38)
[2023-08-06] MEDS ORDERED: ROCURONIUM 10 MG/ML (5 ML VIAL) IV ONE (09:38)
[2023-08-06] MEDS ORDERED: SUGAMMADEX SODIUM 200 MG/2 ML SDV IV ONE (09:38)
[2023-08-06] MEDS ORDERED: PHENYLEPHRINE-0.9% NACL SYG 1,000 MCG/10 ML SYRINGE ONE (09:38)
[2023-08-06] MEDS ORDERED: LIDOCAINE 1% INJ 10MG/ML (20 ML MDV) ONE (09:38)
[2023-08-06] MEDS ORDERED: SUCCINYLCHOLINE CHLORIDE 200 MG/10 ML VIAL IV ONE (09:38)
[2023-08-06] MEDS ORDERED: PROPOFOL 10 MG/ML 20 ML VIAL IV ONE (09:38)
--- NOTE | 2023-08-06 10:06 | P.OP ---
Date of Procedure: 08/06/23 Preoperative Diagnosis: 1. Right dislocated reverse shoulder arthroplasty 2. Morbid obesity with BMI 49.4 3. Multiple medical problems Postoperative Diagnosis: Same Procedure(s) Performed: Closed reduction of right prosthetic shoulder dislocation Anesthesia: [facility] Surgeon: Rangel Aguilera Estimated Blood Loss (ml): 0 IV fluids (ml): 300 Pathology: none sent Condition: stable Disposition: PACU Indications for Procedure: The patient is a very pleasant 68-year-old female who has multiple medical problems and underwent bilateral shoulder replacements by Dr. Barrett out of [facility] previously. Her right shoulder replacement was done a l ittle less than 2 years ago. The patient has had increasing pain and feelings of instability in the right shoulder over the last several weeks. Yesterday she was pushing up on her right elbow when her shoulder popped and became immediately painful. She was admitted through the emergency department after failed attempt at closed reduction. I met with the patient and agreed to attempt at closed reduction of the right shoulder. She understands that all follow-up will be with her shoulder surgeon Dr. Barrett. We briefly discussed the potential risks and complications of surgery including but certainly not limited to inability to reduce the shoulder, recurrent instability and dislocation, fracture, neurovascular injury, pain, need for revision surgery, and possibly loss of life or limb. Description of Procedure: Patient was brought back to the operating room. She was given a general anesthetic by anesthesia. A timeout was performed identifying the correct pa tient and operative extremity. The patient was then carefully transferred onto an OR table. After she was under adequate anesthesia a large fluoroscope was brought in and a gentle closed reduction was performed using longitudinal traction and rotation of the shoulder. There was an audible clunk as the shoulder reduced. Reduction of the shoulder was verified with fluoroscopy. A sling was applied. The patient was then extubated and brought to recovery having tolerated the procedure well. PLAN: The patient can discharge home later today when she is comfortable. She is to wear her sling at all times. She'll be given a prescription for pain medication to get her through until tomorrow. All further instructions will be at the discretion of her shoulder surgeon Dr. Barrett. She was advised to call Dr. Barrett tomorrow morning for further instructions on her care.
--- NOTE | 2023-08-06 10:17 | FL ---
Fluoroscopy guidance operating room. HISTORY: Reverse right shoulder prosthesis. Technique: Single fluoroscopic spot film and 6.6 seconds of fluoroscopy was provided for the placement of a reve rse right prosthetic shoulder FINDINGS: Reverse right shoulder prosthesis in near-anatomic alignment.
[2023-08-06] MEDS: HYDROmorphone 0.5 MG/0.5 ML SYRINGE IVP ONE (10:41)
[2023-08-06 14:25] VITALS: BP 130/69; PULSE 71; RESP 16; TEMP 98.3
[2023-08-06] MEDS: HYDROcodone/APAP 10-325MG 1 EACH TAB PO PRN (15:12)
== END 2023-08-06 17:10 | disposition home or self-care (01) ==
LOC: EC 00:03 → 6NMEDSUR 03:40
PROVIDERS: ADMIT Orthopaedic Surgery; ATTEND Orthopaedic Surgery
DX: T84.028A Dislocation of other internal joint prosthesis, initial encounter (principal); Z96.611 Presence of right artificial shoulder joint; Y79.2 Prosthetic and other implants, materials and accessory orthopedic devices associated with adverse incidents; I25.10 Atherosclerotic heart disease of native coronary artery without angina pectoris; I11.0 Hypertensive heart disease with heart failure; I50.9 Heart failure, unspecified; J44.9 Chronic obstructive pulmonary disease, unspecified; K21.9 Gastro-esophageal reflux disease without esophagitis; E78.5 Hyperlipidemia, unspecified; I25.2 Old myocardial infarction; G47.33 Obstructive sleep apnea (adult) (pediatric); E03.9 Hypothyroidism, unspecified; I69.351 Hemiplegia and hemiparesis following cerebral infarction affecting right dominant side; F32.A Depression, unspecified; F41.9 Anxiety disorder, unspecified; I27.20 Pulmonary hypertension, unspecified; E66.01 Morbid (severe) obesity due to excess calories; Z68.42 Body mass index [BMI] 45.0-49.9, adult; Z86.711 Personal history of pulmonary embolism; Z86.718 Personal history of other venous thrombosis and embolism; Z95.5 Presence of coronary angioplasty implant and graft; Z99.81 Dependence on supplemental oxygen; Z79.01 Long term (current) use of anticoagulants; Z79.890 Hormone replacement therapy; Z79.899 Other long term (current) drug therapy; Z88.2 Allergy status to sulfonamides
CPT/HCPCS: 96376; 96372; 96374; 96375; 99284; 93005; 80053; 85025; 85610; 85730; 73020; 73030; 71045; 23655; G0378; J0330; J3360; J2001; J3010; J1170 ×2; J2704; J2371

== ENCOUNTER → 2023-09-06 | Outpatient (CLI) | payer MEDICARE ==
[2023-09-06 16:27] LABS: VLDL Calculation 12.32 mg/dL (5.00-40.00)
[2023-09-06 16:28] LABS: ALT 11 U/L (8-44); AST 22 U/L (13-35); Albumin 4.1 g/dL (3.8-4.9); Albumin/Globulin Ratio 1.64 Ratio (1.60-3.17); Alkaline Phosphatase 121 U/L (41-126); BUN/Creat Ratio 32.29 Ratio (12.00-20.00); Blood Urea Nitrogen 22.6 mg/dL (9.0-27.0); Calcium 9.2 mg/dL (8.7-10.3); Carbon Dioxide 20.8 mmol/L (21.6-31.8); Chloride 107 mmol/L (96-109); Globulin 2.5 g/dL (1.6-3.3); Glucose 96 mg/dL (70-110); Potassium 4.9 mmol/L (3.5-5.5); Sodium 142 mmol/L (135-145); Total Bilirubin 0.4 mg/dL (0.3-1.2); Total Protein 6.6 g/dL (6.2-8.2)
[2023-09-06 16:29] LABS: HCT 37.5 % (37.2-46.3); MCH 25.3 pg (27.0-32.0); MCHC 29.3 g/dL (32.0-37.0); MCV 86.4 FL (80.0-97.0); NRBC Per 100 WBC 0 X 10*3/uL (0.00-0.01); Platelet Count 414 X 10*3/uL (140-440); RBC 4.34 X 10*6/uL (4.10-5.20); RDW 15.9 % (11.5-14.5)
[2023-09-06 19:50] LABS: INR 0.95 sec (0.93-1.11); Prothrombin Time 10.3 sec (9.9-11.9)
== END | disposition home or self-care (01) ==
LOC: LABWHC1 09:58
PROVIDERS: ATTEND Nurse Practitioner Family
DX: Z01.812 Encounter for preprocedural laboratory examination (principal)
CPT/HCPCS: 36415; 80053; 80061; 83036; 84443; 85027; 85610

== ENCOUNTER 2023-09-30 02:42 | Emergency (ER) | payer MEDICARE ==
[2023-09-30 02:49] VITALS: TEMP 98.1
--- NOTE | 2023-09-30 03:30 | ED ---
Lower Extremity Injury HPI - General Chief Complaint: Extremity Injury, Lower Stated Complaint: Lft Leg Pain Time Seen by Provider: 09/30/23 02:54 Source: patient Mode of arrival: wheelchair Limitations: no limitations - History of Present Illness Initial Comments: 68-year-old female presenting with chief complaint of left lower leg pain. Patient states that the pain started a few hours ago. States that the pain is worse when she lays down with pressure on the leg. Feels better when she stands and walks. She denies any injury or trauma. She states that there is some swelling to the leg. She does have history of DVTs. She is currently on Eliquis. She is having no chest pain or difficulty breathing. No dizziness. No discoloration. No numbness or tingling. - Related Data Home Medications Medication Instructions Recorded Confirmed Apixaban [Eliquis] 5 mg PO BID 01/07/22 07/20/23 Ipratropium-Albuterol Nebulize 3 ml INHALATION RT-QID PRN 07/08/22 07/20/23 [Duoneb 0.5 mg-3 mg/3 ml Soln] Ergocalciferol [Vitamin D2 (1250 1,250 mcg PO RALPH 10/10/22 07/20/23 Mcg = 37617 Iu)] Levothyroxine Sodium [Synthroid] 88 mcg PO DAILY 10/10/22 07/20/23 Albuterol Inhaler [Ventolin Hfa 1 - 2 puff INHALATION RT-Q6H PRN 04/26/23 07/20/23 Inhaler] Fluticasone/Umeclidin/Vilanter 1 puff INHALATION RT-DAILY 04/26/23 07/20/23 [Trelegy Ellipta 100-62.5-25] ARIPiprazole [Abilify] 10 mg PO HS 07/20/23 07/20/23 Butalb/APAP/Caff 50-325-40Mg 1 tab PO BID PRN 07/20/23 07/20/23 [Fioricet 50-325-40] Losartan [Cozaar] 50 mg PO DAILY 07/20/23 07/20/23 Nystatin 100,000 Unit/gm Powd 1 applic TOPICAL TID 07/20/23 07/20/23 [Mycostatin Powder] Vortioxetine Hydrobromide 20 mg PO DAILY 07/20/23 07/20/23 [Trintellix] Previous Rx's Medication Instructions Recorded FLUoxetine HCL [PROzac] 60 mg PO DAILY cap 05/10/23 Acetaminophen Tab [Tylenol] 650 mg PO Q6HR PRN tab 07/25/23 Gabapentin [Neurontin] 800 mg PO TID #9 tab 07/25/23 HYDROcodone/APAP 10-325MG [[place] 1 tab PO TID #9 tab 07/25/23 10-325] Lactulose [Cephulac] 10 gm PO TID ml 07/25/23 Pantoprazole [Protonix] 40 mg PO DAILY tab 07/25/23 Topiramate [Topamax] 100 mg PO BID #6 tab 07/25/23 Torsemide [Demadex] 40 mg PO DAILY tab 07/25/23 rOPINIRole HCL [Requip] 6 mg PO 1500 #6 tablet 07/25/23 rOPINIRole HCL [Requip] 6 mg PO 2100 #6 tab 07/25/23 rOPINIRole HCL [Ropinirole HCl] 3 mg PO DAILY #3 tab 07/25/23 HYDROcodone/APAP 10-325MG [[place] 1 tab PO Q4HR PRN 3 Days #8 tab 08/06/23 10-325] Allergies Allergy/AdvReac Type Severity Reaction Status Date / Time adhesive tape Allergy Swelling Verified 09/30/23 02:49 buspirone [From BuSpar] Allergy Itching Verified 09/30/23 02:49 cefprozil [From Cefzil] Allergy Unknown Verified 09/30/23 02:49 cyclobenzaprine Allergy Rash/Hives Verified 09/30/23 02:49 [From Flexeril] Sulfa (Sulfonamide Allergy Rash/Hives Verified 09/30/23 02:49 Antibiotics) torsemide Allergy Nausea Verified 09/30/23 02:49 valdecoxib [From Bextra] Allergy Unknown Verified 09/30/23 02:49 metaxalone [From Skelaxin] AdvReac Nausea & Verified 09/30/23 02:49 Vomiting Review of Systems ROS Statement: Those systems with pertinent positive or pertinent negative responses have been documented in the HPI. ROS Other: All systems not noted in ROS Statement are negative. 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 Alex-en-Y gastric bypass for morbid obesity, has home o2 that was prescribed in 2019 but currently does not use Last Myocardial Infarction Date:: 2002 History of Any Multi-Drug Resistant Organisms: None Reported Past Surgical History: Bariatric Surgery, Hernia Repair, Hysterectomy, Joint Replacement, Orthopedic Surgery, Tubal Ligation Additional Past Surgical History / Comment(s): 10/19/19 PCI with stent, EGDs, colonoscopy/benign polyps, gastric bypass with revision, ventral and hiatal hernia repair, bladder suspension, R rotator curr repair/revision, L knee arthroscopy, rectocele, perinealplasty, 07/05/20 left shoulder replacement, 11/11/21 right shoulder replacement Past Anesthesia/Blood Transfusion Reactions: Motion Sickness Past Psychological History: Anxiety, Depression Smoking Status: Never smoker Past Alcohol Use History: Rare Past Drug Use History: None Reported - Past Family History Mother Family Medical History: Coronary Artery Disease (CAD), Eye Disorder Additional Family Medical History / Comment(s): Mother is 91 yrs old Father Family Medical History: Myocardial Infarction ([place]) Additional Family Medical History / Comment(s): Father of a massive [place] at the age of 53 yrs. General Exam Limitations: no limitations General appearance: alert, in no apparent distress Head exam: Present: atraumatic, normocephalic Eye exam: Present: normal appearance, EOMI Neck exam: Present: normal inspection. Absent: meningismus Respiratory exam: Absent: respiratory distress Cardiovascular Exam: Present: regular rate Extremities exam: Present: normal capillary refill Left Lower Leg exam: Present: normal inspection, full ROM. Absent: palpable cord Neurological exam: Present: alert, oriented X3 Psychiatric exam: Present: normal affect, normal mood Skin exam: Present: normal color Course Vital Signs 09/30/23 09/30/23 02:45 03:59 Temperature 98.1 F 98.1 F Pulse Rate 76 74 Respiratory 16 20 Rate Blood Pressure 126/85 124/84 O2 Sat by Pulse 98 99 Oximetry Medical Decision Making - Medical Decision Making Was pt. sent in by a medical professional or institution (, PA, DIRECT SERVICE PROFESSIONAL, urgent care, hospital, or alf...) When possible be specific @ -No Did you speak to anyone other than the patient for history (EMS, parent, family, police, friend...)? What history was obtained from this source @ -No Did you review nursing and triage notes (agree or disagree)? Why? @ -I reviewed and agree with nursing and triage notes Were old charts reviewed (outside hosp., previous admission, EMS record, old EKG, old radiological studies, urgent care reports/EKG's, alf records)? Report findings @ -No old charts were reviewed Differential Diagnosis (chest pain, altered mental status, abdominal pain women, abdominal pain men, vaginal bleeding, weakness, fever, dyspnea, syncope, headache, dizziness, GI bleed, back pain, seizure, CVA, palpatations, mental health, musculoskeletal)? @ -Differential Musculoskeletal Muscular strain, contusion, ligament sprain, fracture, arthritis, septic arthritis, bursitis, cellulitis, muscle spasm, nerve compression, DVT, arterial occlusion, herpes zoster, electrolyte abnormality, tumor.... This is not meant to be in all inclusive list EKG interpreted by me (3pts min.). @ -As above X-rays interpreted by me (1pt min.). @ -None done CT interpreted by me (1pt min.). @ -None done U/S interpreted by me (1pt. min.). @ -None done What testing was considered but not performed or refused? (CT, X-rays, U/S, labs)? Why? @ -Offered to perform a D-dimer, the patient declined stating that she does not want 1 because she is not having any chest pain or problems breathing What meds were considered but not given or refused? Why? @ -None Did you discuss the management of the patient with other professionals (professionals i.e. , PA, DIRECT SERVICE PROFESSIONAL, lab, RT, psych nurse, social media content specialist, director information, teacher, ambulance officer, case management rn)? Give summary @ -No Was smoking cessation discussed for >3mins.? @ -No Was critical care preformed (if so, how long)? @ -No Were there social determinants of health that impacted care today? How? (Homelessness, low income, unemployed, alcoholism, drug addiction, transportation, low edu. Level, literacy, decrease access to med. care, prison, rehab)? @ -No Was there de-escalation of care discussed even if they declined (Discuss DNR or withdrawal of care, Hospice)? DNR status @ -No What co-morbidities impacted this encounter? (DM, HTN, Smoking, COPD, CAD, Cancer, CVA, ARF, Chemo, Hep., AIDS, mental health diagnosis, sleep apnea, morbid obesity)? @ -History of DVT Was patient admitted / discharged? Hospital course, mention meds given and route, prescriptions, significant lab abnormalities, going to OR and other pertinent info. @ -68-year-old female presenting with chief complaint of left lower leg pain that started tonight. She states that she has noticed some swelling. On exam I do not notice any obvious unilateral swelling. Leg is warm, normal capillary refill. She denies any injury or trauma. No obvious deformity. We currently do not have ultrasound capabilities at this hour. Patient is having no chest pain or difficulty breathing. I did offer to perform a D-dimer I explained this test and the benefit of performing this. Patient declines, stating that she does not have any chest pain or problems breathing and does not want this at this time. She is of sound mind and able to make her own decisions. She is provided with an order for an outpatient ultrasound, instructed to call in the morning to arrange her appointment. Discharged home. Follow-up with PCP. Report back to ER with any new or worsening symptoms. Discussed return parameters and answered all questions. Patient conveyed verbal understanding and agreed to the plan. I discussed this case in detail with my attending Dr. Arriaga Undiagnosed new problem with uncertain prognosis? @ -No Drug Therapy requiring intensive monitoring for toxicity (Heparin, Nitro, Insulin, Cardizem)? @ -No Were any procedures done? @ -No Diagnosis/symptom? @ -Leg pain Acute, or Chronic, or Acute on Chronic? @ -Acute Uncomplicated (without systemic symptoms) or Complicated (systemic symptoms)? @ -Uncomplicated Side effects of treatment? @ -No Exacerbation, Progression, or Severe Exacerbation? @ -No Disposition Clinical Impression: Left leg pain Disposition: HOME SELF-CARE Condition: Fair Instructions (If sedation given, give patient instructions): Leg Pain (ED) Additional Instructions: You have received an order for an outpatient ultrasound to rule out DVT, call in the morning to schedule your appointment. Follow-up with PCP. Report back to ER with any new or worsening symptoms. Is patient prescribed a controlled substance at d/c from ED?: No Referrals: Edd Lee MD [Primary Care Provider] - 1-2 days Time of Disposition: 03:30
[2023-09-30 04:09] VITALS: BP 124/84; PULSE 74; RESP 20
== END 2023-09-30 03:59 | disposition home or self-care (01) ==
LOC: EC 02:42
DX: M79.605 Pain in left leg (principal); Z91.048 Other nonmedicinal substance allergy status; Z88.2 Allergy status to sulfonamides; Z88.8 Allergy status to other drugs, medicaments and biological substances
CPT/HCPCS: 99283

== ENCOUNTER → 2023-10-17 | Outpatient (CLI) | payer MEDICARE ==
--- NOTE | 2023-10-17 15:36 | XR ---
EXAMINATION TYPE: XR chest 2V DATE OF EXAM: 10/17/2023 COMPARISON: 08/06/2023 HISTORY: Shortness of breath TECHNIQUE: Frontal and lateral views of the chest are obtained. FINDINGS: Scattered senescent parenchymal changes noted. No evidence for infiltrate. No evidence for atelectasis. Heart size is stable. Mediastinal structures are stable and grossly unremarkable. No evidence for hilar prominence. Degenerative changes dorsal spine. IMPRESSION: 1. No evidence for acute pulmonary disease.
== END | disposition home or self-care (01) ==
LOC: RADXRMAIN 15:08
PROVIDERS: ATTEND Internal Medicine
DX: J44.9 Chronic obstructive pulmonary disease, unspecified (principal); R06.02 Shortness of breath
CPT/HCPCS: 71046

== ENCOUNTER → 2024-02-05 | Outpatient (CLI) | payer MEDICARE ==
--- NOTE | 2024-02-05 16:28 | CT ---
EXAMINATION TYPE: CT thor lumbar spine wo con DATE OF EXAM: 02/05/2024 COMPARISON: CT lumbar spine dated 04/08/2023 CLINICAL INDICATION: Female, 69 years old with history of M47.814, M47.816; PHH, back pain after heav y lifting CT DLP: 1061 mGycm Automated exposure control for dose reduction was used. FINDINGS: There is a stable jxhm-kg-iizkglff compression fracture of T5. There is no acute lumbar spine fractur e or malalignment. There is moderate degenerative disc disease T8-L2 where there is moderate disc space narrowing, vacuu m phenomena and spondylosis. There is moderate degenerative disease at the L4-5 and L5-S1 levels wher e there is vacuum phenomena, disc space narrowing and spondylosis. There is a TENS unit at the T8-9 level. There is no large disc herniation. There is no thoracic or lumbar spinal stenosis. There is moderate facet arthropathy at the L4-5 and L5-S1 levels. The visualized sacrum and SI joints are normal. IMPRESSION: 1. Stable mild to moderate compression fracture of T5. 2. No acute lumbar or thoracic spine fracture or malalignment. 3. No thoracic or lumbar disc herniation or spinal stenosis. 4. Moderate multilevel degenerative disc disease throughout the lumbar spine and lower thoracic spine . 5. TENS unit at T8/T9 [facility], , 02/05/2024 4:26 PM
== END | disposition home or self-care (01) ==
LOC: RADCTMAIN 15:00
PROVIDERS: ATTEND Internal Medicine
DX: M47.814 Spondylosis without myelopathy or radiculopathy, thoracic region (principal); M47.816 Spondylosis without myelopathy or radiculopathy, lumbar region; M48.54XA Collapsed vertebra, not elsewhere classified, thoracic region, initial encounter for fracture; M51.369 Other intervertebral disc degeneration, lumbar region without mention of lumbar back pain or lower extremity pain
CPT/HCPCS: 72128; 72131

== ENCOUNTER 2024-03-12 09:23 | Emergency (ER) | payer MEDICARE ==
--- NOTE | 2024-03-12 11:06 | CT ---
EXAMINATION TYPE: CT brain wo con CT DLP: 1184.4 mGycm, Automated exposure control for dose reduction was used. DATE OF EXAM: 03/12/2024 10:59 AM COMPARISON: CT brain C-spine 08/24/2023, CT brain 05/03/2023 CLINICAL INDICATION:Female, 69 years old with history of headache x weeks, worsening, hx cva, headach e TECHNIQUE: Brain: Multiple axial CT images of the brain were obtained without IV contrast. . Coronal and sagitta l reformats reviewed. FINDINGS: Brain: Extra-axial spaces: No abnormal extra-axial fluid collections. Ventricular system: Within normal limits Cerebral parenchyma: Age-appropriate cerebral volume loss. No acute intraparenchymal hemorrhage or ma ss effect. The samayoa-white junction is well differentiated. Scattered hypoattenuating areas are seen within the periventricular white matter. Redemonstration of small lacunar infarct or Virchow-Myron s paces in the left basal ganglion. Partial empty sella. Mass effect: No evidence of midline shift. Intracranial vasculature: Atherosclerotic calcifications of the intracranial vessels. Soft tissues: Normal. Calvarium/osseous structures: No depressed skull fracture. Benign hyperostosis frontalis noted. Paranasal sinuses and mastoid air cells: Clear Visualized orbits: Bilateral aphakia IMPRESSION: 1. No acute intracranial process. 2. Nonspecific white matter changes, likely secondary to chronic small vessel ischemic disease. 3. Small stable lacunar infarct or Virchow-Myron's space in the left basal ganglion. [facility], , 03/12/2024 11:04 AM
[2024-03-12 11:27] LABS: Basophils % (A) 0 %; Eosinophils # (A) 0.2 k/uL (0-0.7); Eosinophils % (A) 3 %; HCT 38.5 % (34.0-46.0); Lymphocytes # (A) 1.3 k/uL (1.0-4.8); Lymphocytes % (A) 21 %; MCH 27.8 pg (25.0-35.0); MCHC 31.3 g/dL (31.0-37.0); MCV 88.8 fL (80.0-100.0); Mean Platelet Volume 7.9; Monocytes # (A) 0.4 k/uL (0-1.0); Monocytes % (A) 7 %; Neutrophils # (A) 4.2 k/uL (1.3-7.7); Neutrophils % (A) 68 %; Platelet Count 290 k/uL (150-450); RBC 4.34 m/uL (3.80-5.40); RDW 15.2 % (11.5-15.5); WBC 6.3 k/uL (3.8-10.6)
[2024-03-12] MEDS: HYDROmorphone 1 MG/ML 1 ML SYRINGE IVP STA ×2 (11:31→13:33)
[2024-03-12] MEDS: diphenhydrAMINE 50 MG/ML 1 ML VIAL IVP STA (11:39)
[2024-03-12] MEDS: METOCLOPRAMIDE 5 MG/ML 2 ML VIAL IVP STA (11:39)
[2024-03-12 11:40] LABS: ALT 13 U/L (4-34); African American GFR (CKD) >90 (>60 ml/min/1.73 sqM); Albumin 3.5 g/dL (3.5-5.0); Anion Gap 3 mmol/L; Blood Urea Nitrogen 19 mg/dL (7-17); Calcium 8.5 mg/dL (8.4-10.2); Carbon Dioxide 26 mmol/L (22-30); Chloride 109 mmol/L (98-107); Glucose 86 mg/dL (74-99); Non-African American GFR(CKD) >90 (>60 ml/min/1.73 sqM); Sodium 138 mmol/L (137-145); Total Bilirubin 0.7 mg/dL (0.2-1.3); Total Protein 6.3 g/dL (6.3-8.2)
[2024-03-12 11:52] LABS: AST 32 U/L (14-36); Alkaline Phosphatase 80 U/L (38-126); Potassium 5.3 mmol/L (3.5-5.1)
[2024-03-12] MEDS ORDERED: DEXAMETHASONE SOD PHOSPHATE 10 MG/ML 1 ML VIAL IVP STA (12:28)
[2024-03-12] MEDS: KETOROLAC 15 MG/ML 1 ML VIAL IVP STA (13:34)
--- NOTE | 2024-03-12 14:40 | ED ---
Headache HPI - General Chief Complaint: Headache Stated Complaint: Headache Time Seen by Provider: 03/12/24 09:35 Mode of arrival: ambulatory Limitations: no limitations - History of Present Illness Initial Comments: 69-year-old female with past medical history of CVA, migraines who presents to the emergency department with a migraine. She states that this 1 has been going on for the past 3 weeks. She has used her home medications which include Fioricet and Nurtec however the headache has continued. She denies fevers or neck stiffness. No head injuries. Patient states that this migraine is more severe than the rest. She denies any lateralizing weakness. No speech changes. There was no sudden onset or maximal intensity. She denies any additional symptoms to include chest pain, difficulty breathing, abdominal pain, nausea, vomiting. No other alleviating, precipitating or modifying factors - Related Data Home Medications Medication Instructions Recorded Confirmed Apixaban [Eliquis] 5 mg PO BID 01/07/22 07/20/23 Ipratropium-Albuterol Nebulize 3 ml INHALATION RT-QID PRN 07/08/22 07/20/23 [Duoneb 0.5 mg-3 mg/3 ml Soln] Ergocalciferol [Vitamin D2 (1250 1,250 mcg PO RALPH 10/10/22 07/20/23 Mcg = 19351 Iu)] Levothyroxine Sodium [Synthroid] 88 mcg PO DAILY 10/10/22 07/20/23 Albuterol Inhaler [Ventolin Hfa 1 - 2 puff INHALATION RT-Q6H PRN 04/26/23 07/20/23 Inhaler] Fluticasone/Umeclidin/Vilanter 1 puff INHALATION RT-DAILY 04/26/23 07/20/23 [Trelegy Ellipta 100-62.5-25] ARIPiprazole [Abilify] 10 mg PO HS 07/20/23 07/20/23 Butalb/APAP/Caff 50-325-40Mg 1 tab PO BID PRN 07/20/23 07/20/23 [Fioricet 50-325-40] Losartan [Cozaar] 50 mg PO DAILY 07/20/23 07/20/23 Nystatin 100,000 Unit/gm Powd 1 applic TOPICAL TID 07/20/23 07/20/23 [Mycostatin Powder] Vortioxetine Hydrobromide 20 mg PO DAILY 07/20/23 07/20/23 [Trintellix] Previous Rx's Medication Instructions Recorded FLUoxetine HCL [PROzac] 60 mg PO DAILY cap 05/10/23 Acetaminophen Tab [Tylenol] 650 mg PO Q6HR PRN tab 07/25/23 Gabapentin [Neurontin] 800 mg PO TID #9 tab 07/25/23 HYDROcodone/APAP 10-325MG [[place] 1 tab PO TID #9 tab 07/25/23 10-325] Lactulose [Cephulac] 10 gm PO TID ml 07/25/23 Pantoprazole [Protonix] 40 mg PO DAILY tab 07/25/23 Topiramate [Topamax] 100 mg PO BID #6 tab 07/25/23 Torsemide [Demadex] 40 mg PO DAILY tab 07/25/23 rOPINIRole HCL [Requip] 6 mg PO 1500 #6 tablet 07/25/23 rOPINIRole HCL [Requip] 6 mg PO 2100 #6 tab 07/25/23 rOPINIRole HCL [Ropinirole HCl] 3 mg PO DAILY #3 tab 07/25/23 HYDROcodone/APAP 10-325MG [[place] 1 tab PO Q4HR PRN 3 Days #8 tab 08/06/23 10-325] Rimegepant Sulfate [Nurtec Odt] 75 mg PO DAILY PRN #30 tab 03/12/24 Allergies Allergy/AdvReac Type Severity Reaction Status Date / Time adhesive tape Allergy Swelling Verified 03/12/24 09:32 buspirone [From BuSpar] Allergy Itching Verified 03/12/24 09:32 cefprozil [From Cefzil] Allergy Unknown Verified 03/12/24 09:32 cyclobenzaprine Allergy Rash/Hives Verified 03/12/24 09:32 [From Flexeril] Sulfa (Sulfonamide Allergy Rash/Hives Verified 03/12/24 09:32 Antibiotics) torsemide Allergy Nausea Verified 03/12/24 09:32 valdecoxib [From Bextra] Allergy Unknown Verified 03/12/24 09:32 metaxalone [From Skelaxin] AdvReac Nausea & Verified 03/12/24 09:32 Vomiting Review of Systems ROS Statement: Those systems with pertinent positive or pertinent negative responses have been documented in the HPI. ROS Other: All systems not noted in ROS Statement are negative. 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 Alex-en-Y gastric bypass for morbid obesity, has home o2 that was prescribed in 2019 but currently does not use Last Myocardial Infarction Date:: 2002 History of Any Multi-Drug Resistant Organisms: None Reported Past Surgical History: Bariatric Surgery, Hernia Repair, Hysterectomy, Joint Replacement, Orthopedic Surgery, Tubal Ligation Additional Past Surgical History / Comment(s): 10/19/19 PCI with stent, EGDs, colonoscopy/benign polyps, gastric bypass with revision, ventral and hiatal hernia repair, bladder suspension, R rotator curr repair/revision, L knee arthroscopy, rectocele, perinealplasty, 07/05/20 left shoulder replacement, 11/11/21 right shoulder replacement Past Anesthesia/Blood Transfusion Reactions: Motion Sickness Past Psychological History: Anxiety, Depression Smoking Status: Never smoker Past Alcohol Use History: Rare Past Drug Use History: None Reported - Past Family History Mother Family Medical History: Coronary Artery Disease (CAD), Eye Disorder Additional Family Medical History / Comment(s): Mother is 91 yrs old Father Family Medical History: Myocardial Infarction (ND) Additional Family Medical History / Comment(s): Father of a massive ND at the age of 53 yrs. General Exam Limitations: no limitations General appearance: alert, in no apparent distress Head exam: Present: atraumatic, normocephalic, normal inspection Eye exam: Present: normal appearance, PERRL, EOMI. Absent: scleral icterus, conjunctival injection, periorbital swelling ENT exam: Present: normal exam, mucous membranes moist Neck exam: Present: normal inspection. Absent: tenderness, meningismus, lymphadenopathy Respiratory exam: Present: normal lung sounds bilaterally. Absent: respiratory distress, wheezes, rales, rhonchi, stridor Cardiovascular Exam: Present: regular rate, normal rhythm, normal heart sounds. Absent: systolic murmur, diastolic murmur, rubs, gallop, clicks GI/Abdominal exam: Present: soft, normal bowel sounds. Absent: distended, tenderness, guarding, rebound, rigid Extremities exam: Present: normal inspection, full ROM, normal capillary refill. Absent: tenderness, pedal edema, joint swelling, calf tenderness Back exam: Present: normal inspection Neurological exam: Present: alert, oriented X3, CN II-XII intact Psychiatric exam: Present: normal affect, normal mood Skin exam: Present: warm, dry, intact, normal color. Absent: rash Course Vital Signs 03/12/24 03/12/24 03/12/24 09:29 10:09 11:44 Temperature 98.2 F Pulse Rate 82 88 66 Respiratory 18 16 16 Rate Blood Pressure 149/89 127/76 145/85 O2 Sat by Pulse 99 98 Oximetry 03/12/24 03/12/24 13:33 15:00 Temperature 98.5 F Pulse Rate 68 88 Respiratory 16 18 Rate Blood Pressure 139/57 141/98 O2 Sat by Pulse 98 95 Oximetry Medical Decision Making - Medical Decision Making Was pt. sent in by a medical professional or institution (, PA, DATA ARCHITECT MANAGER, urgent care, hospital, or jail...) When possible be specific @ -No Did you speak to anyone other than the patient for history (EMS, parent, family, police, friend...)? What history was obtained from this source @ -No Did you review nursing and triage notes (agree or disagree)? Why? @ -I reviewed and agree with nursing and triage notes Were old charts reviewed (outside hosp., previous admission, EMS record, old EKG, old radiological studies, urgent care reports/EKG's, jail records)? Report findings @ -No old charts were reviewed Differential Diagnosis (chest pain, altered mental status, abdominal pain women, abdominal pain men, vaginal bleeding, weakness, fever, dyspnea, syncope, headache, dizziness, GI bleed, back pain, seizure, CVA, palpatations, mental health, musculoskeletal)? @ -Differential Headache: Migraine, tension, cluster, carbon monoxide, central venous thrombosis, pension karma temporal arteritis, acute closure glaucoma, intercranial hemorrhage, mastoiditis, sinusitis, head injury, this is not meant to be an all-inclusive list. EKG interpreted by me (3pts min.). @ -Not done X-rays interpreted by me (1pt min.). @ -None done CT interpreted by me (1pt min.). @ -Yes as patient is reporting to more severe symptoms than typical. It does not identify any acute process U/S interpreted by me (1pt. min.). @ -None done What testing was considered but not performed or refused? (CT, X-rays, U/S, labs)? Why? @ -None What meds were considered but not given or refused? Why? @ -None Did you discuss the management of the patient with other professionals (professionals i.e. , PA, DATA ARCHITECT MANAGER, lab, RT, psych nurse, social studies teacher, cigar packing examiner, teacher, senior loan officer, disease case manager rn)? Give summary @ -No Was smoking cessation discussed for >3mins.? @ -No Was critical care preformed (if so, how long)? @ -No Were there social determinants of health that impacted care today? How? (Homelessness, low income, unemployed, alcoholism, drug addiction, transportation, low edu. Level, literacy, decrease access to med. care, half-way, rehab)? @ -No Was there de-escalation of care discussed even if they declined (Discuss DNR or withdrawal of care, Hospice)? DNR status @ -No What co-morbidities impacted this encounter? (DM, HTN, Smoking, COPD, CAD, Cancer, CVA, ARF, Chemo, Hep., AIDS, mental health diagnosis, sleep apnea, morbid obesity)? @ -Migraines, CVA Was patient admitted / discharged? Hospital course, mention meds given and route, prescriptions, significant lab abnormalities, going to OR and other pertinent info. @ -Upon arrival patient seen and evaluated in bed 14. Thorough history and physical exam was performed. IV access was established. Laboratory studies are conducted. CT of the brain was performed. Patient states that Dilaudid typically helps her headaches. She was given 1 mg in addition to Reglan and Benadryl. Patient is reevaluated and continues to have headache. She is requesting more medications for which I did give her 10 mg of Decadron, 1 mg of Valium and 15 mg of Toradol. Patient reevaluated once again states that the headache has improved. At this time patient will be discharged home and is instructed to follow-up with Dr. Martell ortiz for further management of her headaches. Return for any new or worsening symptoms. Patient agreeable to the plan was discharged home in stable condition Undiagnosed new problem with uncertain prognosis? @ -No Drug Therapy requiring intensive monitoring for toxicity (Heparin, Nitro, Insulin, Cardizem)? @ -No Were any procedures done? @ -No Diagnosis/symptom? @ -Acute migraine, history of migraines Acute, or Chronic, or Acute on Chronic? @ -Acute on chronic Uncomplicated (without systemic symptoms) or Complicated (systemic symptoms)? @ -Complicated Side effects of treatment? @ -No Exacerbation, Progression, or Severe Exacerbation? @ -Yes Poses a threat to life or bodily function? How? (Chest pain, USA, ND, pneumonia, PE, COPD, DKA, ARF, appy, cholecystitis, CVA, Diverticulitis, Homicidal, Suicidal, threat to staff... and all critical care pts) @ -No - Lab Data Result diagrams: 03/12/24 11:18 03/12/24 11:18 Lab Results 03/12/24 03/12/24 Range/Units 11:18 11:18 WBC 6.3 (3.8-10.6) k/uL RBC 4.34 (3.80-5.40) m/uL Hgb 12.0 (11.4-16.0) gm/dL Hct 38.5 (34.0-46.0) % MCV 88.8 (80.0-100.0) fL MCH 27.8 (25.0-35.0) pg MCHC 31.3 (31.0-37.0) g/dL RDW 15.2 (11.5-15.5) % Plt Count 290 (150-450) k/uL MPV 7.9 Neutrophils % 68 % Lymphocytes % 21 % Monocytes % 7 % Eosinophils % 3 % Basophils % 0 % Neutrophils # 4.2 (1.3-7.7) k/uL Lymphocytes # 1.3 (1.0-4.8) k/uL Monocytes # 0.4 (0-1.0) k/uL Eosinophils # 0.2 (0-0.7) k/uL Basophils # 0.0 (0-0.2) k/uL Sodium 138 (137-145) mmol/L Potassium 5.3 H (3.5-5.1) mmol/L Chloride 109 H (98-107) mmol/L Carbon Dioxide 26 (22-30) mmol/L Anion Gap 3 mmol/L BUN 19 H (7-17) mg/dL Creatinine 0.62 (0.52-1.04) mg/dL Est GFR (CKD-EPI)AfAm >90 (>60 ml/min/1.73 sqM) Est GFR (CKD-EPI)NonAf >90 (>60 ml/min/1.73 sqM) Glucose 86 (74-99) mg/dL Calcium 8.5 (8.4-10.2) mg/dL Total Bilirubin 0.7 (0.2-1.3) mg/dL AST 32 (14-36) U/L ALT 13 (4-34) U/L Alkaline Phosphatase 80 (38-126) U/L Total Protein 6.3 (6.3-8.2) g/dL Albumin 3.5 (3.5-5.0) g/dL Disposition Clinical Impression: Headache Disposition: HOME SELF-CARE Condition: Stable Instructions (If sedation given, give patient instructions): Acute Headache (ED) Additional Instructions: Please take the Nurtec for your headaches in addition to your Fioricet. Please follow-up with Dr. Machado and return for any new or worsening symptoms Prescriptions: Rimegepant Sulfate [Nurtec Odt] 75 mg PO DAILY PRN #30 tab PRN Reason: Headache Is patient prescribed a controlled substance at d/c from ED?: No Referrals: John Machado MD [Primary Care Provider] - 1-2 days Time of Disposition: 14:40
[2024-03-12 15:05] VITALS: BP 141/98; PULSE 88; RESP 18; TEMP 98.5
== END 2024-03-12 15:06 | disposition home or self-care (01) ==
LOC: EC 09:23
DX: G43.909 Migraine, unspecified, not intractable, without status migrainosus (principal); Z86.73 Personal history of transient ischemic attack (TIA), and cerebral infarction without residual deficits; Z88.1 Allergy status to other antibiotic agents; Z88.2 Allergy status to sulfonamides; Z88.8 Allergy status to other drugs, medicaments and biological substances; Z91.09 Other allergy status, other than to drugs and biological substances
CPT/HCPCS: 36415; 80053; 85025; 70450; 99284; 96374; 96375 ×3; 96376; J1200; J2765; J1171; J1885

== ENCOUNTER → 2024-08-21 | Outpatient (CLI) | payer MEDICARE ==
[2024-08-21 16:09] VITALS: BP 118/77; PULSE 73; RESP 16; TEMP 97.6; BMI 49.9
--- NOTE | 2024-08-21 16:25 | P.HPBAR ---
Bariatric H&P - History & Physicial H&P Date: 08/21/24 History & Physicial: Visit/CC: F/u Patient initial contact: Initial weight: 165.561 kg Initial weight in pounds: 365.00 Height: 5 ft 2 in Initial BMI: 66.7 Last weight: Current weight: 123.831 kg Current weight in pounds: 273.00 Current BMI: 49.9 [place] body weight (based on NIH guidelines): 50 kg Excess body weight loss: 36.1% The patient is a 69 year-old F who presents for Bariatric Assessment. She is at 273 pounds. Zepbound in 1.5 months. She was on Wegovy. She has a gastric bypass. 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 Recent diagnosis of PAD. May 2024 medications. Needs food journal. She is on lasix 2x day. 3 weeks FU. No abdominal pain. She has trouble drink. She has dysphagia with foods in the mid chest. EGD needed with possible diation. Past Medical History Past Medical History: Asthma, Coronary Artery Disease (CAD), Chest Pain / Angina, Heart Failure, COPD, CVA/TIA, Deep Vein Thrombosis (DVT), Fibromyalgia, GERD/Reflux, GI Bleed, Hearing Disorder / Deafness, Hyperlipidemia, Hypertens ion, Memory Impairment, Myocardial Infarction (SD), Osteoarthritis (OA), Pneumonia, Pulmonary Embolus (PE), Renal Disease, Respiratory Disorder, Seizure Disorder, Skin Disorder, Sleep Apnea/CPAP/BIPAP, Thyroid Disorder Additional Past Medical History / Comment(s): CVA with R sided weakness arm and leg and speech affected, tia, falls, pulmonary HTN, pleurisy, BLANCO without de vice, 10/2019 takosubto syndrome, bilateral PEs, DVT R lung, last seizure 2016, gastric ulcer, hiatal hernia, upper/lower GI bleeds, IBS, benign polyps, anemia- past iron infusions, hypoglycemia, chronic low back pain, osteoporosis, myofascial pain syndrome, occipital neuralgia, migraines, RLS, hypothyroid, skin yeast infections, bilateral tinnitis. Alex-en-Y gastric bypass for morbid obesity, Peripheral Artery Disease Last Myocardial Infarction Date:: 2002 History of Any Multi-Drug Resistant Organisms: None Reported Past Surgical History: Bariatric Surgery, Hernia Repair, Hysterectomy, Joint Replacement, Orthopedic Surgery, Tubal Ligation Additional Past Surgical History / Comment(s): 10/19/19 PCI with stent, EGDs, colonoscopy/benign polyps, gastric bypass with revision, ventral and hiatal hernia repair, bladder suspension, R rotator curr repair/revision, L knee arthroscopy, rectocele, perinealplasty, 07/05/20 left shoulder replacement, 11/11/21 right shoulder replacement Past Anesthesia/Blood Transfusion Reactions: Motion Sickness Past Psychological History: Anxiety, Depression Additional Psychological History / Comment(s): Patient drives. She has depression and is in compliance with her medication. She used to see someone for her mental health. Smoking Status: Never smoker Past Alcohol Use History: Rare Past Drug Use History: None Reported - Past Family History Mother Family Medical History: Coronary Artery Disease (CAD), Eye Disorder Additional Family Medical History / Comment(s): Mother is 91 yrs old Father Family Medical History: Myocardial Infarction (SD) Additional Family Medical History / Comment(s): Father of a massive SD at the age of 53 yrs. Surgical - Exam Vital Signs Temp Pulse Resp BP 97.6 F 73 16 118/77 08/21/24 15:48 08/21/24 15:48 08/21/24 15:48 08/21/24 15:48 Bariatric Checklist Checklist: Plan: Checklist: EGD: 1. Hiatal hernia: 2. H. Pylori: HgbA1c: Vitamin D: Smoking: Never smoker Primary care physician referral: [facility] Psychiatry clearance: Cardiology clearance: Sleep study: Diet journal: VTE risk score: VTE risk level: Rehab needs at discharge:
== END ==
LOC: BARWHC3 14:08
PROVIDERS: ATTEND Surgery Plastic and Reconstructive Surgery
DX: E66.01 Morbid (severe) obesity due to excess calories (principal); Z68.42 Body mass index [BMI] 45.0-49.9, adult; Z91.048 Other nonmedicinal substance allergy status; Z88.2 Allergy status to sulfonamides; Z88.5 Allergy status to narcotic agent; Z88.8 Allergy status to other drugs, medicaments and biological substances; Z88.1 Allergy status to other antibiotic agents; Z91.030 Bee allergy status
CPT/HCPCS: 99211

== ENCOUNTER 2024-08-31 11:19 | Emergency (ER) | payer MEDICARE ==
[2024-08-31 11:34] VITALS: TEMP 97.4
[2024-08-31 12:25] LABS: Basophils # (A) 0.05 10*3/uL (0.00-0.10); Basophils % (A) 0.7 %; Eosinophils # (A) 0.16 10*3/uL (0.04-0.35); Eosinophils % (A) 2.4 %; HCT 41.3 % (37.2-46.3); HGB 13.1 g/dL (12.0-15.0); Lymphocytes # (A) 1.45 10*3/uL (0.90-5.00); Lymphocytes % (A) 21.6 %; MCH 29.6 pg (27.0-32.0); MCHC 31.7 g/dL (32.0-37.0); MCV 93.2 fL (80.0-97.0); Mean Platelet Volume 9.7 fL (9.5-12.2); Monocytes # (A) 0.76 10*3/uL (0.20-1.00); Monocytes % (A) 11.3 %; Neutrophils # (A) 4.27 10*3/uL (1.80-7.70); Neutrophils % (A) 63.6 %; Platelet Count 322 10*3/uL (140-440); RBC 4.43 10*6/uL (4.10-5.20); RDW 13.4 % (11.5-14.5); WBC 6.72 10*3/uL (4.50-10.00)
[2024-08-31 12:32] LABS: INR 0.9 (<1.2); Partial Thromboplastin Time 23.3 sec (22.0-30.0); Prothrombin Time 10.2 sec (10.0-12.5)
[2024-08-31 12:33] LABS: ALT 16 U/L (4-34); African American GFR (CKD) >90 (>60 ml/min/1.73 sqM); Albumin 3.8 g/dL (3.5-5.0); Anion Gap 6 mmol/L; Blood Urea Nitrogen 23 mg/dL (7-17); Calcium 9.5 mg/dL (8.4-10.2); Carbon Dioxide 32 mmol/L (22-30); Chloride 99 mmol/L (98-107); Glucose 95 mg/dL (74-99); Non-African American GFR(CKD) 86 (>60 ml/min/1.73 sqM); Sodium 137 mmol/L (137-145); Total Bilirubin 0.8 mg/dL (0.2-1.3); Total Protein 6.5 g/dL (6.3-8.2)
--- NOTE | 2024-08-31 12:33 | XR ---
EXAMINATION TYPE: XR chest 2V DATE OF EXAM: 08/31/2024 12:23 PM COMPARISON: Chest radiographs from [id number] TECHNIQUE: XR chest 2V Frontal and lateral views of the chest. CLINICAL INDICATION:Female, 69 years old with history of difficulty breathing; FINDINGS: Lungs/Pleura: There is no evidence of pleural effusion, focal consolidation, or pneumothorax. Pulmonary vascularity: Unremarkable. Heart/mediastinum: Cardiomediastinal silhouette is prominent in size. Musculoskeletal: Multiple level degenerative disc disease changes seen throughout the spine. Postsurg ical changes from bilateral shoulder arthroplasty. Thoracic spinal stimulator leads are identified. IMPRESSION: No acute cardiopulmonary disease/process. [facility], , 08/31/2024 12:30 PM
[2024-08-31 12:42] LABS: NT-Pro-B-Type Natriuretic Pept 262 pg/mL
[2024-08-31 13:01] LABS: AST 30 U/L (14-36); Magnesium 2.2 mg/dL (1.6-2.3); Potassium 5.2 mmol/L (3.5-5.1)
[2024-08-31 13:03] LABS: Alkaline Phosphatase 83 U/L (38-126)
[2024-08-31 13:10] VITALS: RESP 16
[2024-08-31] MEDS: ONDANSETRON 4 MG/2 ML VIAL IVP STA (13:43)
--- NOTE | 2024-08-31 14:22 | ED ---
SOB HPI - General Chief Complaint: Shortness of Breath Stated Complaint: Kevin leg swelling,SOB Time Seen by Provider: 08/31/24 11:40 Source: patient Mode of arrival: wheelchair Limitations: no limitations - History of Present Illness Initial Comments: 69-year-old female with past medical history of heart failure, DVT, thyroid disorder who presents emergency department with swelling to her bilateral feet and shortness of breath for 2 days. Patient reports that she has been taking all of her medications as they are instructed without any missed doses. Denies cough, fevers or chills. No chest pain. No other alleviating, precipitating modifying factors - Related Data Home Medications Medication Instructions Recorded Confirmed Apixaban [Eliquis] 5 mg PO BID 01/07/22 09/16/24 Nystatin 100,000 Unit/gm Powd 1 applic TOPICAL TID 07/20/23 09/16/24 [Mycostatin Powder] Gabapentin [Neurontin] 800 mg PO QID 08/21/24 09/16/24 HYDROcodone/APAP 10-325MG [[place] 1 tab PO QID 08/21/24 09/16/24 10-325] Rosuvastatin [Crestor] 10 mg PO HS 08/21/24 09/16/24 Tirzepatide [Zepbound] 5 mg SQ RALPH 08/21/24 09/16/24 tiZANidine HCL 4 mg PO BID PRN 08/21/24 09/16/24 Cariprazine HCl [Vraylar] 1.5 mg PO DAILY 09/07/24 09/16/24 Topiramate [Topamax] 25 mg PO BID 09/07/24 09/16/24 Torsemide [Demadex] 20 mg PO DAILY 09/07/24 09/16/24 Triamcinolone 0.025% Cream 1 applic TOPICAL DAILY PRN 09/07/24 09/16/24 [Kenalog 0.025% Cream] Vilazodone HCl [Viibryd] 20 mg PO HS 09/07/24 09/16/24 rOPINIRole HCL [rOPINIRole HCL ER 6 mg PO QID 09/07/24 09/16/24 (XL)] Nurtec(Unknown Dose) 1 tab PO DIRECTED PRN 09/13/24 09/16/24 Allergies Allergy/AdvReac Type Severity Reaction Status Date / Time adhesive tape Allergy Swelling Verified 09/28/24 18:38 buspirone [From BuSpar] Allergy Itching Verified 09/28/24 18:38 cefprozil [From Cefzil] Allergy Unknown Verified 09/28/24 18:38 cyclobenzaprine Allergy Rash/Hives Verified 09/28/24 18:38 [From Flexeril] Sulfa (Sulfonamide Allergy Rash/Hives Verified 09/28/24 18:38 Antibiotics) valdecoxib [From Bextra] Allergy Unknown Verified 09/28/24 18:38 metaxalone [From Skelaxin] AdvReac Nausea & Verified 09/28/24 18:38 Vomiting Review of Systems ROS Statement: Those systems with pertinent positive or pertinent negative responses have been documented in the HPI. ROS Other: All systems not noted in ROS Statement are negative. 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 Alex-en-Y gastric bypass for morbid obesity, Peripheral Artery Disease Last Myocardial Infarction Date:: 2002 History of Any Multi-Drug Resistant Organisms: None Reported Past Surgical History: Bariatric Surgery, Hernia Repair, Hysterectomy, Joint Re placement, Orthopedic Surgery, Tubal Ligation Additional Past Surgical History / Comment(s): 10/19/19 PCI with stent, EGDs, colonoscopy/benign polyps, gastric bypass with revision, ventral and hiatal hernia repair, bladder suspension, R rotator curr repair/revision, L knee ar throscopy, rectocele, perinealplasty, 07/05/20 left shoulder replacement, 11/11/21 right shoulder replacement Past Anesthesia/Blood Transfusion Reactions: Motion Sickness Past Psychological History: Anxiety, Depression Smoking Status: Never smoker Past Alcohol Use History: Rare Past Drug Use History: None Reported - Past Family History Mother Family Medical History: Coronary Artery Disease (CAD), Eye Disorder Additional Family Medical History / Comment(s): Mother is 91 yrs old Father Family Medical History: Myocardial Infarction (MD) Additional Family Medical History / Comment(s): Father of a massive MD at the age of 53 yrs. General Exam Limitations: no limitations General appearance: alert, in no apparent distress Head exam: Present: atraumatic, normocephalic, normal inspection Eye exam: Present: normal appearance, PERRL, EOMI. Absent: scleral icterus, conjunctival injection, periorbital swelling ENT exam: Present: normal exam, mucous membranes moist Neck exam: Present: normal inspection. Absent: tenderness, meningismus, lymphadenopathy Respiratory exam: Present: normal lung sounds bilaterally. Absent: respiratory distress, wheezes, rales, rhonchi, stridor Cardiovascular Exam: Present: regular rate, normal rhythm, normal heart sounds. Absent: systolic murmur, diastolic murmur, rubs, gallop, clicks GI/Abdominal exam: Present: soft, normal bowel sounds. Absent: distended, tenderness, guarding, rebound, rigid Extremities exam: Present: normal inspection, full ROM, normal capillary refill. Absent: tenderness, pedal edema, joint swelling, calf tenderness Back exam: Present: normal inspection Neurological exam: Present: alert, oriented X3, CN II-XII intact Psychiatric exam: Present: normal affect, normal mood Skin exam: Present: warm, dry, intact, normal color. Absent: rash Course Vital Signs 08/31/24 08/31/24 08/31/24 11:28 11:34 12:04 Temperature 97.4 F L Pulse Rate 69 66 Respiratory 18 18 18 Rate Blood Pressure 137/89 131/84 O2 Sat by Pulse 100 98 Oximetry 08/31/24 08/31/24 08/31/24 13:09 13:45 14:05 Temperature Pulse Rate 61 64 62 Respiratory 16 16 16 Rate Blood Pressure 117/79 130/100 119/89 O2 Sat by Pulse 92 L 99 94 L Oximetry 08/31/24 14:47 Temperature Pulse Rate 66 Respiratory 16 Rate Blood Pressure 101/82 O2 Sat by Pulse 100 Oximetry Medical Decision Making - Medical Decision Making Was pt. sent in by a medical professional or institution (CHARAN Adams, HOSPITAL CLEANING SPECIALIST, urgent care, hospital, or senior care...) When possible be specific @ -No Did you speak to anyone other than the patient for history (EMS, parent, family, police, friend...)? What history was obtained from this source @ -No Did you review nursing and triage notes (agree or disagree)? Why? @ -I reviewed and agree with nursing and triage notes Were old charts reviewed (outside hosp., previous admission, EMS record, old EKG, old radiological studies, urgent care reports/EKG's, senior care records)? Report findings @ -No old charts were reviewed Differential Diagnosis (chest pain, altered mental status, abdominal pain women, abdominal pain men, vaginal bleeding, weakness, fever, dyspnea, syncope, headache, dizziness, GI bleed, back pain, seizure, CVA, palpatations, mental health, musculoskeletal)? @ -Differential Dyspnea: Coronary syndrome, arrhythmia, tamponade, asthma, COPD, pulmonary embolism, pneumonia, pneumothorax, pulmonary effusion, anaphylaxis, diabetic ketoacidosis, flailed chest, pulmonary contusion, diaphragmatic rupture, anemia, neuromuscular, this is not meant to be an all-inclusive list. EKG interpreted by me (3pts min.). @ -Yes which demonstrates sinus rhythm with a rate of 69. OR interval 192. QRS 93. QTc of 398. No acute ST segment elevations. Baseline artifact in aVR, aVL and aVF X-rays interpreted by me (1pt min.). @ -Yes which demonstrates no acute process CT interpreted by me (1pt min.). @ -None done U/S interpreted by me (1pt. min.). @ -None done What testing was considered but not performed or refused? (CT, X-rays, U/S, labs)? Why? @ -None What meds were considered but not given or refused? Why? @ -None Did you discuss the management of the patient with other professionals (professionals i.e. , CHARAN, HOSPITAL CLEANING SPECIALIST, lab, RT, psych nurse, social media director, mobile home laborer, teacher, supply requirements officer, sample case porter)? Give summary @ -No Was smoking cessation discussed for >3mins.? @ -No Was critical care preformed (if so, how long)? @ -No Were there social determinants of health that impacted care today? How? (Homelessness, low income, unemployed, alcoholism, drug addiction, transportation, low edu. Level, literacy, decrease access to med. care, group home, rehab)? @ -No Was there de-escalation of care discussed even if they declined (Discuss DNR or withdrawal of care, Hospice)? DNR status @ -No What co-morbidities impacted this encounter? (DM, HTN, Smoking, COPD, CAD, Cancer, CVA, ARF, Chemo, Hep., AIDS, mental health diagnosis, sleep apnea, morbid obesity)? @ -CHF, DVT Was patient admitted / discharged? Hospital course, mention meds given and route, prescriptions, significant lab abnormalities, going to OR and other pertinent info. @ -Upon arrival patient seen and evaluated in bed 16. Thorough history and physical exam was performed. IV access was established. Laboratory studies were conducted. Chest x-ray was performed. Patient is not in active heart failure. I did offer a shot of Lasix for her increased welling. Recommended compression stockings. Follow-up with her doctor in 2 to 4 days. Patient was agreeable to this. Return for any new or worsening symptoms. Patient discharged in stable condition Undiagnosed new problem with uncertain prognosis? @ -No Drug Therapy requiring intensive monitoring for toxicity (Heparin, Nitro, Insulin, Cardizem)? @ -No Were any procedures done? @ -No Diagnosis/symptom? @ -Acute bilateral lower extremity edema, evaluation for acute congestive heart failure Acute, or Chronic, or Acute on Chronic? @ -Acute on chronic Uncomplicated (without systemic symptoms) or Complicated (systemic symptoms)? @ -Complicated Side effects of treatment? @ -Kidney injury Exacerbation, Progression, or Severe Exacerbation? @ -Yes Poses a threat to life or bodily function? How? (Chest pain, USA, MD, pneumonia, PE, COPD, DKA, ARF, appy, cholecystitis, CVA, Diverticulitis, Homicidal, Suicidal, threat to staff... and all critical care pts) @ -No - Lab Data Result diagrams: 08/31/24 11:47 08/31/24 11:47 Lab Results 08/31/24 08/31/24 08/31/24 Range/Units 11:47 11:47 11:47 WBC 6.72 (4.50-10.00) 10*3/uL RBC 4.43 (4.10-5.20) 10*6/uL Hgb 13.1 (12.0-15.0) g/dL Hct 41.3 (37.2-46.3) % MCV 93.2 (80.0-97.0) fL MCH 29.6 (27.0-32.0) pg MCHC 31.7 L (32.0-37.0) g/dL Plt Count 322 (140-440) 10*3/uL MPV 9.7 (9.5-12.2) fL Immature Gran % (Auto) 0.4 % Neutrophils % 63.6 % Lymphocytes % 21.6 % Monocytes % 11.3 % Eosinophils % 2.4 % Basophils % 0.7 % Immature Gran # 0.03 (0.00-0.04) 10*3/uL Neutrophils # 4.27 (1.80-7.70) 10*3/uL Lymphocytes # 1.45 (0.90-5.00) 10*3/uL Monocytes # 0.76 (0.20-1.00) 10*3/uL Eosinophils # 0.16 (0.04-0.35) 10*3/uL Basophils # 0.05 (0.00-0.10) 10*3/uL PT 10.2 (10.0-12.5) sec INR 0.9 (<1.2) APTT 23.3 (22.0-30.0) sec Sodium 137 (137-145) mmol/L Potassium 5.2 H (3.5-5.1) mmol/L Chloride 99 (98-107) mmol/L Carbon Dioxide 32 H (22-30) mmol/L Anion Gap 6 mmol/L BUN 23 H (7-17) mg/dL Creatinine 0.72 (0.52-1.04) mg/dL Est GFR (CKD-EPI)AfAm >90 (>60 ml/min/1.73 sqM) Est GFR (CKD-EPI)NonAf 86 (>60 ml/min/1.73 sqM) Glucose 95 (74-99) mg/dL Plasma Lactic Acid Steve (0.7-2.0) mmol/L Calcium 9.5 (8.4-10.2) mg/dL Magnesium 2.2 (1.6-2.3) mg/dL Total Bilirubin 0.8 (0.2-1.3) mg/dL AST 30 (14-36) U/L ALT 16 (4-34) U/L Alkaline Phosphatase 83 (38-126) U/L Troponin I (0.000-0.034) ng/mL NT-Pro-B Natriuret Pep 262 pg/mL Total Protein 6.5 (6.3-8.2) g/dL Albumin 3.8 (3.5-5.0) g/dL 08/31/24 08/31/24 Range/Units 11:47 11:47 WBC (4.50-10.00) 10*3/uL RBC (4.10-5.20) 10*6/uL Hgb (12.0-15.0) g/dL Hct (37.2-46.3) % MCV (80.0-97.0) fL MCH (27.0-32.0) pg MCHC (32.0-37.0) g/dL Plt Count (140-440) 10*3/uL MPV (9.5-12.2) fL Immature Gran % (Auto) % Neutrophils % % Lymphocytes % % Monocytes % % Eosinophils % % Basophils % % Immature Gran # (0.00-0.04) 10*3/uL Neutrophils # (1.80-7.70) 10*3/uL Lymphocytes # (0.90-5.00) 10*3/uL Monocytes # (0.20-1.00) 10*3/uL Eosinophils # (0.04-0.35) 10*3/uL Basophils # (0.00-0.10) 10*3/uL PT (10.0-12.5) sec INR (<1.2) APTT (22.0-30.0) sec Sodium (137-145) mmol/L Potassium (3.5-5.1) mmol/L Chloride (98-107) mmol/L Carbon Dioxide (22-30) mmol/L Anion Gap mmol/L BUN (7-17) mg/dL Creatinine (0.52-1.04) mg/dL Est GFR (CKD-EPI)AfAm (>60 ml/min/1.73 sqM) Est GFR (CKD-EPI)NonAf (>60 ml/min/1.73 sqM) Glucose (74-99) mg/dL Plasma Lactic Acid Steve 1.4 (0.7-2.0) mmol/L Calcium (8.4-10.2) mg/dL Magnesium (1.6-2.3) mg/dL Total Bilirubin (0.2-1.3) mg/dL AST (14-36) U/L ALT (4-34) U/L Alkaline Phosphatase (38-126) U/L Troponin I <0.012 (0.000-0.034) ng/mL NT-Pro-B Natriuret Pep pg/mL Total Protein (6.3-8.2) g/dL Albumin (3.5-5.0) g/dL Disposition Clinical Impression: Acute respiratory insufficiency Disposition: HOME SELF-CARE Condition: Stable Instructions (If sedation given, give patient instructions): Shortness of Breath (ED) Additional Instructions: Please continue all your medications as they are instructed. Call Dr. Machado early next week for an appointment for reevaluation. Return for any new or worsening symptoms Is patient prescribed a controlled substance at d/c from ED?: No Referrals: John Machado MD [Primary Care Provider] - 1-2 days Time of Disposition: 14:22
[2024-08-31] MEDS: FUROSEMIDE 10 MG/ML 4 ML VIAL IV STA (14:41)
[2024-08-31 14:48] VITALS: BP 101/82; PULSE 66
== END 2024-08-31 14:48 | disposition home or self-care (01) ==
LOC: EC 11:19
DX: R06.89 Other abnormalities of breathing (principal); R60.0 Localized edema; I50.9 Heart failure, unspecified; I82.409 Acute embolism and thrombosis of unspecified deep veins of unspecified lower extremity; Z86.73 Personal history of transient ischemic attack (TIA), and cerebral infarction without residual deficits; Z88.2 Allergy status to sulfonamides; Z88.1 Allergy status to other antibiotic agents; Z88.8 Allergy status to other drugs, medicaments and biological substances
CPT/HCPCS: 36415; 93005; 83880; 80053; 83605; 83735; 84484; 85025; 85610; 85730; 71046; 99285; 96374; 96375; J2405; J1938

== ENCOUNTER 2024-09-07 06:57 | Observation (INO) | payer MEDICARE ==
--- NOTE | 2024-09-07 07:26 | ED ---
General Adult HPI - General Chief complaint: Recheck/Abnormal Lab/Rx Stated complaint: Chest pain Time Seen by Provider: 09/07/24 07:02 Source: patient, EMS, RN notes reviewed Mode of arrival: EMS Limitations: no limitations - History of Present Illness Initial comments: Patient is a 69-year-old female presenting to the emergency department with concerns for chest discomfort. Onset was sometime between midnight and 3. Patient states discomfort continues. Patient was short of breath however no longer short of breath. Patient did vomit. No history of similar symptoms previously but patient does have history of previous heart attack and stent pl acement. Patient admits to taking a whole package of marijuana Gummies. Patient states she took them because she was thinking that they were CBD Gummies. Patient is crying and moaning consistently and difficult to understand. - Related Data Home Medications Medication Instructions Recorded Confirmed Apixaban [Eliquis] 5 mg PO BID 01/07/22 08/21/24 Albuterol Inhaler [Ventolin Hfa 1 - 2 puff INHALATION RT-Q6H PRN 04/26/23 08/21/24 Inhaler] Butalb/APAP/Caff 50-325-40Mg 1 tab PO BID PRN 07/20/23 08/21/24 [Fioricet 50-325-40] Nystatin 100,000 Unit/gm Powd 1 applic TOPICAL TID 07/20/23 08/21/24 [Mycostatin Powder] Diclofenac Sodium [Diclofenac 1 dose TOPICAL DIRECTED PRN 08/21/24 08/21/24 Sodium 1%] Furosemide [Lasix] 1 tab PO BID 08/21/24 08/21/24 Gabapentin [Neurontin] 800 mg PO QID 08/21/24 08/21/24 HYDROcodone/APAP 10-325MG [[place] 1 tab PO Q6H PRN 08/21/24 08/21/24 10-325] Rosuvastatin [Crestor] 10 mg PO BID 08/21/24 08/21/24 Tirzepatide [Zepbound] 5 mg SQ TH 08/21/24 08/21/24 Ubrogepant [Ubrelvy] 1 tab PO DAILY PRN 08/21/24 08/21/24 Vilazodone HCl 20 mg PO DAILY 08/21/24 08/21/24 rOPINIRole HCL [Requip] 6 mg PO 0300 08/21/24 08/21/24 rOPINIRole HCL [Ropinirole HCl] 6 mg PO 0900 08/21/24 08/21/24 tiZANidine HCL 4 mg PO BID 08/21/24 08/21/24 Previous Rx's Medication Instructions Recorded Topiramate [Topamax] 100 mg PO BID #6 tab 07/25/23 rOPINIRole HCL [Requip] 6 mg PO 1500 #6 tablet 07/25/23 rOPINIRole HCL [Requip] 6 mg PO 2100 #6 tab 07/25/23 Allergies Allergy/AdvReac Type Severity Reaction Status Date / Time adhesive tape Allergy Swelling Verified 09/07/24 07:09 buspirone [From BuSpar] Allergy Itching Verified 09/07/24 07:09 cefprozil [From Cefzil] Allergy Unknown Verified 09/07/24 07:09 cyclobenzaprine Allergy Rash/Hives Verified 09/07/24 07:09 [From Flexeril] Sulfa (Sulfonamide Allergy Rash/Hives Verified 09/07/24 07:09 Antibiotics) torsemide Allergy Nausea Verified 09/07/24 07:09 valdecoxib [From Bextra] Allergy Unknown Verified 09/07/24 07:09 metaxalone [From Skelaxin] AdvReac Nausea & Verified 09/07/24 07:09 Vomiting Review of Systems ROS Statement: Those systems with pertinent positive or pertinent negative responses have been documented in the HPI. ROS Other: All systems not noted in ROS Statement are negative. Respiratory: Reports: as per HPI Cardiovascular: Reports: as per HPI, chest pain Gastrointestinal: Reports: nausea, vomiting Musculoskeletal: Denies: back pain Past Medical History Past Medical History: Asthma, Coronary Artery Disease (CAD), Chest Pain / Angina, Heart Failure, COPD, CVA/TIA, Deep Vein Thrombosis (DVT), Fibromyalgia, GERD/Reflux, GI Bleed, Hearing Disorder / Deafness, Hyperlipidemia, Hypertension, Memory Impairment, Myocardial Infarction ([place]), Osteoarthritis (OA), Pneumonia, Pulmonary Embolus (PE), Renal Disease, Respiratory Disorder, Seizure Disorder, Skin Disorder, Sleep Apnea/CPAP/BIPAP, Thyroid Disorder Additional Past Medical History / Comment(s): 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 Alex-en-Y gastric bypass for morbid obesity, Peripheral Artery Disease Last Myocardial Infarction Date:: 2002 History of Any Multi-Drug Resistant Organisms: None Reported Past Surgical History: Bariatric Surgery, Hernia Repair, Hysterectomy, Joint Replacement, Orthopedic Surgery, Tubal Ligation Additional Past Surgical History / Comment(s): 10/19/19 PCI with stent, EGDs, colonoscopy/benign polyps, gastric bypass with revision, ventral and hiatal hernia repair, bladder suspension, R rotator curr repair/revision, L knee arthroscopy, rectocele, perinealplasty, 07/05/20 left shoulder replacement, 11/11/21 right shoulder replacement Past Anesthesia/Blood Transfusion Reactions: Motion Sickness Past Psychological History: Anxiety, Depression Smoking Status: Never smoker Past Alcohol Use History: Rare Past Drug Use History: None Reported - Past Family History Mother Family Medical History: Coronary Artery Disease (CAD), Eye Disorder Additional Family Medical History / Comment(s): Mother is 91 yrs old Father Family Medical History: Myocardial Infarction ([place]) Additional Family Medical History / Comment(s): Father of a massive [place] at the age of 53 yrs. General Exam Limitations: no limitations General appearance: alert, anxious Head exam: Present: normocephalic Eye exam: Present: normal appearance Neck exam: Present: normal inspection Respiratory exam: Present: normal lung sounds bilaterally Cardiovascular Exam: Present: regular rate, normal rhythm Expanded Peripheral pulses: 2+: Radial (R), Radial (L), Dorsalis Pedis (R), Dorsalis Pedis (L) GI/Abdominal exam: Present: soft. Absent: tenderness, pulsatile mass Extremities exam: Present: normal inspection. Absent: pedal edema, calf tenderness Neurological exam: Present: alert Psychiatric exam: Present: normal affect, normal mood Skin exam: Present: normal color Course Vital Signs 09/07/24 09/07/24 07:22 08:02 Temperature 98.1 F Pulse Rate 82 81 Respiratory 22 20 Rate Blood Pressure 151/99 148/89 O2 Sat by Pulse 98 96 Oximetry EKG Findings - EKG Results: EKG: interpreted by ERMD (Left axis. First-degree AV block with a CA of 208. Artifact is present.), sinus rhythm, normal QRS, normal ST/T Medical Decision Making - Medical Decision Making Was pt. sent in by a medical professional or institution (, CHARAN, CHIP MIXING MACHINE OPERATOR, urgent care, hospital, or penitentiary...) When possible be specific @ -No Did you speak to anyone other than the patient for history (EMS, parent, family, police, friend...)? What history was obtained from this source @ -No Did you review nursing and triage notes (agree or disagree)? Why? @ -I reviewed and agree with nursing and triage notes Were old charts reviewed (outside hosp., previous admission, EMS record, old EKG, old radiological studies, urgent care reports/EKG's, penitentiary records)? Report findings @ -No old charts were reviewed Differential Diagnosis (chest pain, altered mental status, abdominal pain women, abdominal pain men, vaginal bleeding, weakness, fever, dyspnea, syncope, headache, dizziness, GI bleed, back pain, seizure, CVA, palpatations, mental health, musculoskeletal)? @ -Differential Chest Pain: Stable Angina, Unstable Angina, STEMI, NSTEMI Aortic Dissection, Pneumothorax, Musculoskeletal, Esophageal Spasm GERD, Cholecystitis, Pancreatitis, Zoster, this is not meant to be an all-inclusive list. EKG interpreted by me (3pts min.). @ -As above X-rays interpreted by me (1pt min.). @ -Chest x-ray showed no acute process. CT interpreted by me (1pt min.). @ -None done U/S interpreted by me (1pt. min.). @ -None done What testing was considered but not performed or refused? (CT, X-rays, U/S, labs)? Why? @ -None What meds were considered but not given or refused? Why? @ -None Did you discuss the management of the patient with other professionals (professionals i.e. , CHARAN, CHIP MIXING MACHINE OPERATOR, lab, RT, psych nurse, dialysis social worker, fingernail former, teacher, uniform patrol police officer, registered nurse hh case manager)? Give summary @ -EMH to admit covering Dr. Le Was smoking cessation discussed for >3mins.? @ -No Was critical care preformed (if so, how long)? @ -No Were there social determinants of health that impacted care today? How? (Homelessness, low income, unemployed, alcoholism, drug addiction, transportation, low edu. Level, literacy, decrease access to med. care, [place] [facility], rehab)? @ -No Was there de-escalation of care discussed even if they declined (Discuss DNR or withdrawal of care, Hospice)? DNR status @ -No What co-morbidities impacted this encounter? (DM, HTN, Smoking, COPD, CAD, Cancer, CVA, ARF, Chemo, Hep., AIDS, mental health diagnosis, sleep apnea, morbid obesity)? @ -Previous cardiac disease Was patient admitted / discharged? Hospital course, mention meds given and route, prescriptions, significant lab abnormalities, going to OR and other pertinent info. @ -Patient presents with chest discomfort and anxiety. Initial evaluation un remarkable. On reevaluation patient significantly improved and resting comfortably in bed. Patient will be admitted with cardiac consult. Admission orders written. Patient updated. Undiagnosed new problem with uncertain prognosis? @ -No Drug Therapy requiring intensive monitoring for toxicity (Heparin, Nitro, Insulin, Cardizem)? @ -No Were any procedures done? @ -No Diagnosis/symptom? @ -Chest pain Acute, or Chronic, or Acute on Chronic? @ -Acute Uncomplicated (without systemic symptoms) or Complicated (systemic symptoms)? @ -Complicated with cannabis intoxication on presentation Side effects of treatment? @ -No Exacerbation, Progression, or Severe Exacerbation? @ -No Poses a threat to life or bodily function? How? (Chest pain, [place], IA, pneumonia, PE, COPD, DKA, ARF, appy, cholecystitis, CVA, Diverticulitis, Homicidal, Suicidal, threat to staff... and all critical care pts) @ -Threat to cardiac function - Lab Data Result diagrams: 09/07/24 07:33 09/07/24 07:33 Lab Results 09/07/24 09/07/24 09/07/24 Range/Units 07:33 07:33 07:33 WBC 6.26 (4.50-10.00) 10*3/uL RBC 4.36 (4.10-5.20) 10*6/uL Hgb 13.1 (12.0-15.0) g/dL Hct 40.6 (37.2-46.3) % MCV 93.1 (80.0-97.0) fL MCH 30.0 (27.0-32.0) pg MCHC 32.3 (32.0-37.0) g/dL Plt Count 283 (140-440) 10*3/uL MPV 10.0 (9.5-12.2) fL Immature Gran % (Auto) 0.3 % Neutrophils % 61.9 % Lymphocytes % 20.9 % Monocytes % 13.6 % Eosinophils % 2.7 % Basophils % 0.6 % Immature Gran # 0.02 (0.00-0.04) 10*3/uL Neutrophils # 3.87 (1.80-7.70) 10*3/uL Lymphocytes # 1.31 (0.90-5.00) 10*3/uL Monocytes # 0.85 (0.20-1.00) 10*3/uL Eosinophils # 0.17 (0.04-0.35) 10*3/uL Basophils # 0.04 (0.00-0.10) 10*3/uL Sodium 136 L (137-145) mmol/L Potassium 4.8 (3.5-5.1) mmol/L Chloride 102 (98-107) mmol/L Carbon Dioxide 25 (22-30) mmol/L Anion Gap 9 mmol/L BUN 29 H (7-17) mg/dL Creatinine 0.90 (0.52-1.04) mg/dL Est GFR (CKD-EPI)AfAm 75 (>60 ml/min/1.73 sqM) Est GFR (CKD-EPI)NonAf 65 (>60 ml/min/1.73 sqM) Glucose 92 (74-99) mg/dL Calcium 9.3 (8.4-10.2) mg/dL Magnesium 2.4 H (1.6-2.3) mg/dL Total Bilirubin 0.6 (0.2-1.3) mg/dL AST 28 (14-36) U/L ALT 17 (4-34) U/L Alkaline Phosphatase 92 (38-126) U/L Troponin I <0.012 (0.000-0.034) ng/mL NT-Pro-B Natriuret Pep 130 pg/mL Total Protein 6.6 (6.3-8.2) g/dL Albumin 3.9 (3.5-5.0) g/dL Disposition Clinical Impression: Chest pain Disposition: ADMITTED IP TO THIS HOSP Is patient prescribed a controlled substance at d/c from ED?: No Referrals: None,Stated [REFERRING] - 1-2 days Time of Disposition: 08:49
[2024-09-07 07:44] LABS: Basophils # (A) 0.04 10*3/uL (0.00-0.10); Basophils % (A) 0.6 %; Eosinophils # (A) 0.17 10*3/uL (0.04-0.35); Eosinophils % (A) 2.7 %; HCT 40.6 % (37.2-46.3); HGB 13.1 g/dL (12.0-15.0); Lymphocytes # (A) 1.31 10*3/uL (0.90-5.00); Lymphocytes % (A) 20.9 %; MCHC 32.3 g/dL (32.0-37.0); MCV 93.1 fL (80.0-97.0); Monocytes # (A) 0.85 10*3/uL (0.20-1.00); Monocytes % (A) 13.6 %; Neutrophils # (A) 3.87 10*3/uL (1.80-7.70); Neutrophils % (A) 61.9 %; Platelet Count 283 10*3/uL (140-440); RBC 4.36 10*6/uL (4.10-5.20); RDW 13.3 % (11.5-14.5); WBC 6.26 10*3/uL (4.50-10.00)
[2024-09-07 07:59] LABS: ALT 17 U/L (4-34); AST 28 U/L (14-36); African American GFR (CKD) 75 (>60 ml/min/1.73 sqM); Albumin 3.9 g/dL (3.5-5.0); Alkaline Phosphatase 92 U/L (38-126); Anion Gap 9 mmol/L; Blood Urea Nitrogen 29 mg/dL (7-17); Calcium 9.3 mg/dL (8.4-10.2); Carbon Dioxide 25 mmol/L (22-30); Chloride 102 mmol/L (98-107); Glucose 92 mg/dL (74-99); Magnesium 2.4 mg/dL (1.6-2.3); Non-African American GFR(CKD) 65 (>60 ml/min/1.73 sqM); Potassium 4.8 mmol/L (3.5-5.1); Sodium 136 mmol/L (137-145); Total Bilirubin 0.6 mg/dL (0.2-1.3); Total Protein 6.6 g/dL (6.3-8.2)
[2024-09-07] MEDS: ASPIRIN 81 MG PO STA (08:01)
[2024-09-07] MEDS: NITROGLYCERIN OINT 1 INCH/GM PACKET TOPICAL STA (08:01)
[2024-09-07 08:08] LABS: NT-Pro-B-Type Natriuretic Pept 130 pg/mL
--- NOTE | 2024-09-07 08:08 | XR ---
EXAMINATION TYPE: XR chest 2V DATE OF EXAM: 09/07/2024 7:53 AM COMPARISON: 08/31/2024 CLINICAL INDICATION: Female, 69 years old with history of Chest Pain, TECHNIQUE: XR chest 2V view(s) obtained. FINDINGS: The heart size is normal. The pulmonary vasculature is normal. The lungs are clear. Stimulator leads are in the thoracic spinal canal. Bilateral shoulder prostheses are present. IMPRESSION: 1. No acute pulmonary process. [facility], , 09/07/2024 8:06 AM
[2024-09-07 09:11] LABS: INR 0.8 (<1.2); Prothrombin Time 9.6 sec (10.0-12.5)
[2024-09-07 09:12] LABS: Partial Thromboplastin Time 20.9 sec (22.0-30.0)
[2024-09-07] MEDS: NITROGLYCERIN OINT 1 INCH/GM PACKET TOPICAL SCH (14:57)
--- NOTE | 2024-09-07 17:35 | P.CRDCN ---
History of Present Illness Consult date: 09/07/24 History of present illness: HISTORY OF PRESENTING ILLNESS: Patient is a 69-year-old female who is known to Dr. Whitehead. She presented to the hospital because of severe confusion and hallucinations. Patient reports that by mistake she ate a whole packet of marijuana Gummies which approximately 200 mg of total dose. She confuse them with CBD Gummies. On admission she was crying and moaning. Mini Bar Attendant consulted because of her prior cardiovascular history. There was also concerns of possible substernal chest pressure which patient attributes to her anxiety and feeling as if she is dying after eating significant marijuana. Admission ECG shows sinus rhythm, heart rate 71, nonspecific ST changes, but not diagnostic for acute ischemia Admission labs are essentially within normal limits with troponin negative, NT- proBNP 130 Chest x-ray does not show any acute congestion or consolidation. REVIEW OF SYSTEMS: 14 point review of system is negative except what is mentioned above in HPI. PHYSICAL EXAMINATION: Neck: Brisk carotid upstroke, no jugular venous distention. Lungs: Clear to auscultation. Heart: Regular rate and rhythm, S1-S2, , no murmur or rub. Abdomen: Soft nontender, positive bowel sounds. Extremities: No edema, intact distal pulses. Neuro: Alert, oritented, no focal deficits. Detailed neuro exam was not performed. ASSESSMENT: # Atypical chest pain, rule out of ACS # Marijuana overdose # Hallucinations and anxiety after eating marijuana # History of DVT and PE # Stable CAD with history of CAD status post PCI to diagonal # Essential hypertension # Dyslipidemia # History of CVA # BLANCO on CPAP # Morbid obesity # Chronic anemia PLAN: Continue her home medication without any changes At this time patient is cleared from cardiovascular standpoint Obtain echocardiogram If echo is normal cardiology team will sign off. Please reconsult us in case of any question Recommend outpatient follow-up Dr. Charley Vaca MD, FAC, RPVI Thank you for allowing [facility] to participate in this patient's care. Feel free to reach out in case of any followup questions. 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 Alex-en-Y gastric bypass for morbid obesity, Peripheral Artery Disease Last Myocardial Infarction Date:: 2002 History of Any Multi-Drug Resistant Organisms: None Reported Past Surgical History: Bariatric Surgery, Hernia Repair, Hysterectomy, Joint Replacement, Orthopedic Surgery, Tubal Ligation Additional Past Surgical History / Comment(s): 10/19/19 PCI with stent, EGDs, colonoscopy/benign polyps, gastric bypass with revision, ventral and hiatal hernia repair, bladder suspension, R rotator curr repair/revision, L knee arthroscopy, rectocele, perinealplasty, 07/05/20 left shoulder replacement, 11/11 right shoulder replacement Past Anesthesia/Blood Transfusion Reactions: Motion Sickness Past Psychological History: Anxiety, Depression Smoking Status: Never smoker Past Alcohol Use History: Rare Past Drug Use History: None Reported - Past Family History Mother Family Medical History: Coronary Artery Disease (CAD), Eye Disorder Additional Family Medical History / Comment(s): Mother is 91 yrs old Father Family Medical History: Myocardial Infarction ([place]) Additional Family Medical History / Comment(s): Father of a massive [place] at the age of 53 yrs. Medications and Allergies Home Medications Medication Instructions Recorded Confirmed Type Apixaban [Eliquis] 5 mg PO BID 01/07/22 09/07/24 History Nystatin 100,000 Unit/gm Powd 1 applic TOPICAL TID 07/20/23 09/07/24 History [Mycostatin Powder] Gabapentin [Neurontin] 800 mg PO TID 08/21/24 09/07/24 History HYDROcodone/APAP 10-325MG [[place] 1 tab PO QID 08/21/24 09/07/24 History 10-325] Rosuvastatin [Crestor] 10 mg PO HS 08/21/24 09/07/24 History Tirzepatide [Zepbound] 5 mg SQ RALPH 08/21/24 09/07/24 History Ubrogepant [Ubrelvy] 1 tab PO DAILY PRN 08/21/24 09/07/24 History tiZANidine HCL 4 mg PO BID PRN 08/21/24 09/07/24 History Cariprazine HCl [Vraylar] 1.5 mg PO DAILY 09/07/24 09/07/24 History Topiramate [Topamax] 25 mg PO BID 09/07/24 09/07/24 History Torsemide [Demadex] 20 mg PO DAILY 09/07/24 09/07/24 History Triamcinolone 0.025% Cream 1 applic TOPICAL DAILY 09/07/24 09/07/24 History [Kenalog 0.025% Cream] Vilazodone HCl [Viibryd] 20 mg PO HS 09/07/24 09/07/24 History rOPINIRole HCL [rOPINIRole HCL ER 6 mg PO QID 09/07/24 09/07/24 History (XL)] Allergies Allergy/AdvReac Type Severity Reaction Status Date / Time adhesive tape Allergy Swelling Verified 09/07/24 11:05 buspirone [From BuSpar] Allergy Itching Verified 09/07/24 11:05 cefprozil [From Cefzil] Allergy Unknown Verified 09/07/24 11:05 cyclobenzaprine Allergy Rash/Hives Verified 09/07/24 11:05 [From Flexeril] Sulfa (Sulfonamide Allergy Rash/Hives Verified 09/07/24 11:05 Antibiotics) torsemide Allergy Nausea Verified 09/07/24 11:05 valdecoxib [From Bextra] Allergy Unknown Verified 09/07/24 11:05 metaxalone [From Skelaxin] AdvReac Nausea & Verified 09/07/24 11:05 Vomiting Physical Exam Vitals: Vital Signs Temp Pulse Resp BP Pulse Ox 09/07/24 13:24 72 18 132/83 95 09/07/24 08:02 81 20 148/89 96 09/07/24 07:22 98.1 F 82 22 151/99 98 Intake and Output 09/07/24 09/07/24 09/07/24 06:59 14:59 22:59 Other: Weight 122.47 kg Results 09/07/24 07:33 09/07/24 07:33 Cardiac Enzymes 09/07/24 09/07/24 09/07/24 Range/Units 07:33 07:33 12:14 AST 28 (14-36) U/L Troponin I <0.012 <0.012 (0.000-0.034) ng/mL 09/07/24 Range/Units 15:49 AST (14-36) U/L Troponin I <0.012 (0.000-0.034) ng/mL Coagulation 09/07/24 Range/Units 08:21 PT 9.6 L (10.0-12.5) sec APTT 20.9 L (22.0-30.0) sec CBC 09/07/24 Range/Units 07:33 WBC 6.26 (4.50-10.00) 10*3/uL RBC 4.36 (4.10-5.20) 10*6/uL Hgb 13.1 (12.0-15.0) g/dL Hct 40.6 (37.2-46.3) % Plt Count 283 (140-440) 10*3/uL Comprehensive Metabolic Panel 09/07/24 Range/Units 07:33 Sodium 136 L (137-145) mmol/L Potassium 4.8 (3.5-5.1) mmol/L Chloride 102 (98-107) mmol/L Carbon Dioxide 25 (22-30) mmol/L BUN 29 H (7-17) mg/dL Creatinine 0.90 (0.52-1.04) mg/dL Glucose 92 (74-99) mg/dL Calcium 9.3 (8.4-10.2) mg/dL AST 28 (14-36) U/L ALT 17 (4-34) U/L Alkaline Phosphatase 92 (38-126) U/L Total Protein 6.6 (6.3-8.2) g/dL Albumin 3.9 (3.5-5.0) g/dL Current Medications Generic Name Dose Route Start Last Admin Trade Name Freq PRN Reason Stop Dose Admin Aspirin 325 mg 09/08/24 09:00 Aspirin 325 Mg Tab PO DAILY AMBIKA Nitroglycerin 0.4 mg 09/07/24 08:49 Nitroglycerin Sl Tabs 0.4 Mg Tab SUBLINGUAL Q5M PRN Chest Pain Nitroglycerin 1 inch 09/07/24 12:00 09/07/24 14:57 Nitroglycerin Oint 1 Inch/Gm Packet TOPICAL Not Given Q6HR AMBIKA Intake and Output 09/07/24 09/07/24 09/07/24 06:59 14:59 22:59 Other: Weight 122.47 kg Patient Weight 09/08/24 06:59 Weight 122.47 kg 09/07/24 07:33 09/07/24 07:33
--- NOTE | 2024-09-07 20:13 | P.HPIM ---
History of Present Illness H&P Date: 09/07/24 Chief Complaint: Chest pain 69-year-old female presenting to the emergency department with concerns for chest discomfort. Onset was sometime between midnight and 3. Patient states discomfort continues. Patient was short of breath however no longer short of breath. Patient did vomit. No history of similar symptoms previously but patient does have history of previous heart attack and stent placement. Patient admits to taking a whole package of marijuana Gummies. Patient states she took them because she was thinking that they were CBD Gummies. Patient is crying and moaning consistently and difficult to understand. Blood work reveals WBC of 6.2, hemoglobin of 13.1 and platelet count of 283, sodium 136, potassium 4.8, BUN/creatinine of 29/0.90 and magnesium of 2.4, troponin less than 0.012 Admission ECG shows sinus rhythm, heart rate 71, nonspecific ST changes, but not diagnostic for acute ischemia Admission labs are essentially within normal limits with troponin negative, NT- proBNP 130 Chest x-ray does not show any acute congestion or consolidation. Review of Systems REVIEW OF SYSTEMS: CONSTITUTIONAL: No fever, no malaise, no fatigue. HEENT: No recent visual problems or hearing problems. Denied any sore throat. CARDIOVASCULAR: No chest pain, orthopnea, PND, no palpitations, no syncope. PULMONARY: No shortness of breath, no cough, no hemoptysis. GASTROINTESTINAL: No diarrhea, no nausea, no vomiting, no abdominal pain. NEUROLOGICAL: No headaches, no weakness, no numbness. HEMATOLOGICAL: Denies any bleeding or petechiae. GENITOURINARY: Denies any burning micturition, frequency, or urgency. MUSCULOSKELETAL/RHEUMATOLOGICAL: Denies any joint pain, swelling, or any muscle pain. ENDOCRINE: Denies any polyuria or polydipsia. The rest of the 14-point review of systems is negative. 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 Alex-en-Y gastric bypass for morbid obesity, Peripheral Artery Disease Last Myocardial Infarction Date:: 2002 History of Any Multi-Drug Resistant Organisms: None Reported Past Surgical History: Bariatric Surgery, Hernia Repair, Hysterectomy, Joint Replacement, Orthopedic Surgery, Tubal Ligation Additional Past Surgical History / Comment(s): 10/19/19 PCI with stent, EGDs, colonoscopy/benign polyps, gastric bypass with revision, ventral and hiatal hernia repair, bladder suspension, R rotator curr repair/revision, L knee arthroscopy, rectocele, perinealplasty, 07/05/20 left shoulder replacement, 11/11/21 right shoulder replacement Past Anesthesia/Blood Transfusion Reactions: Motion Sickness Past Psychological History: Anxiety, Depression Smoking Status: Never smoker Past Alcohol Use History: Rare Past Drug Use History: None Reported - Past Family History Mother Family Medical History: Coronary Artery Disease (CAD), Eye Disorder Additional Family Medical History / Comment(s): Mother is 91 yrs old Father Family Medical History: Myocardial Infarction (AK) Additional Family Medical History / Comment(s): Father of a massive AK at the age of 53 yrs. Medications and Allergies Home Medications Medication Instructions Recorded Confirmed Type Apixaban [Eliquis] 5 mg PO BID 01/07/22 09/07/24 History Nystatin 100,000 Unit/gm Powd 1 applic TOPICAL TID 07/20/23 09/07/24 History [Mycostatin Powder] Gabapentin [Neurontin] 800 mg PO TID 08/21/24 09/07/24 History HYDROcodone/APAP 10-325MG [[place] 1 tab PO QID 08/21/24 09/07/24 History 10-325] Rosuvastatin [Crestor] 10 mg PO HS 08/21/24 09/07/24 History Tirzepatide [Zepbound] 5 mg SQ RALPH 08/21/24 09/07/24 History Ubrogepant [Ubrelvy] 1 tab PO DAILY PRN 08/21/24 09/07/24 History tiZANidine HCL 4 mg PO BID PRN 08/21/24 09/07/24 History Cariprazine HCl [Vraylar] 1.5 mg PO DAILY 09/07/24 09/07/24 History Topiramate [Topamax] 25 mg PO BID 09/07/24 09/07/24 History Torsemide [Demadex] 20 mg PO DAILY 09/07/24 09/07/24 History Triamcinolone 0.025% Cream 1 applic TOPICAL DAILY 09/07/24 09/07/24 History [Kenalog 0.025% Cream] Vilazodone HCl [Viibryd] 20 mg PO HS 09/07/24 09/07/24 History rOPINIRole HCL [rOPINIRole HCL ER 6 mg PO QID 09/07/24 09/07/24 History (XL)] Allergies Allergy/AdvReac Type Severity Reaction Status Date / Time adhesive tape Allergy Swelling Verified 09/07/24 11:05 buspirone [From BuSpar] Allergy Itching Verified 09/07/24 11:05 cefprozil [From Cefzil] Allergy Unknown Verified 09/07/24 11:05 cyclobenzaprine Allergy Rash/Hives Verified 09/07/24 11:05 [From Flexeril] Sulfa (Sulfonamide Allergy Rash/Hives Verified 09/07/24 11:05 Antibiotics) torsemide Allergy Nausea Verified 09/07/24 11:05 valdecoxib [From Bextra] Allergy Unknown Verified 09/07/24 11:05 metaxalone [From Skelaxin] AdvReac Nausea & Verified 09/07/24 11:05 Vomiting Physical Exam Vitals: Vital Signs Temp Pulse Resp BP Pulse Ox 09/07/24 08:02 81 20 148/89 96 09/07/24 07:22 98.1 F 82 22 151/99 98 Intake and Output 09/06/24 09/07/24 09/07/24 22:59 06:59 14:59 Other: Weight 122.47 kg General appearance: alert, anxious Head exam: Present: normocephalic Eye exam: Present: normal appearance Neck exam: Present: normal inspection Respiratory exam: Present: normal lung sounds bilaterally Cardiovascular Exam: Present: regular rate, normal rhythm Peripheral pulses: 2+: Radial (R), Radial (L), Dorsalis Pedis (R), Dorsalis Pedis (L) GI/Abdominal exam: Present: soft. Absent: tenderness, pulsatile mass Extremities exam: Present: normal inspection. Absent: pedal edema, calf tenderness Neurological exam: Present: alert Psychiatric exam: Present: normal affect, normal mood Skin exam: Present: normal color Results CBC & Chem 7: 09/07/24 07:33 09/07/24 07:33 Labs: Abnormal Lab Results - Last 24 Hours (Table) 09/07/24 09/07/24 Range/Units 07:33 08:21 PT 9.6 L (10.0-12.5) sec APTT 20.9 L (22.0-30.0) sec Sodium 136 L (137-145) mmol/L BUN 29 H (7-17) mg/dL Magnesium 2.4 H (1.6-2.3) mg/dL Assessment and Plan Assessment: Chest pain rule out acute coronary syndrome/history of CAD; status post PCI to diagonal -Patient has been admitted to telemetry; monitor EKG trend troponin; patient received aspirin in ED - Recommend 2D echo - Consult cardiology Hypertension; Demadex 20 mg daily Hyperlipidemia; Crestor 10 mg p.o. nightly DVT/PE; continue home dose of Eliquis History of CVA; patient takes Eliquis and Crestor Neuropathy; Neurontin 800 mg 3 times daily BLANCO; patient uses CPAP Morbid obesity; counseling done on need for weight reduction Fibromyalgia; patient takes [place] and tizanidine Bipolar disorder; patient takes Vraylar 1.5 mg daily, Topamax 25 mg twice daily, Viibryd 20 mg p.o. nightly PT prophylax; SCDs/systemic anticoagulation CODE STATUS; full code
[2024-09-07] MEDS: NON FORMULARY DRUG (Vilazodone Hcl [Viibryd] 20 MG Tablet) PO SCH (21:44)
[2024-09-07] MEDS: NITROGLYCERIN SL TABS 0.4 MG TAB SUBLINGUAL PRN (21:45)
[2024-09-07] MEDS: HYDROcodone/APAP 10-325MG 1 EACH TAB PO SCH (21:45)
[2024-09-07] MEDS: APIXABAN 5 MG TAB PO SCH (21:46)
[2024-09-07] MEDS: TOPIRAMATE 25 MG TAB PO SCH (21:46)
[2024-09-07] MEDS: ATORVASTATIN 20 MG TAB PO SCH (21:46)
[2024-09-07] MEDS: tiZANidine 4 MG TAB PO PRN (22:09)
[2024-09-07] MEDS: GABAPENTIN 400 MG CAP PO SCH (22:09)
[2024-09-07] MEDS: rOPINIRole HCL 4 MG TABLET PO SCH (22:10)
[2024-09-08 07:22] VITALS: RESP 18; TEMP 97.5
--- NOTE | 2024-09-08 08:10 | P.PN ---
Subjective Progress Note Date: 09/08/24 HISTORY OF PRESENTING ILLNESS: Patient is a 69-year-old female who is known to Dr. Whitehead. She presented to the hospital because of severe confusion and hallucinations. Patient reports that by mistake she ate a whole packet of marijuana Gummies which approximately 200 mg of total dose. She confuse them with CBD Gummies. On admission she was crying and moaning. Systems Support Engineer consulted because of her prior cardiovascular history. There was also concerns of possible substernal chest pressure which patient attributes to her anxiety and feeling as if she is dying after eating significant marijuana. Admission ECG shows sinus rhythm, heart rate 71, nonspecific ST changes, but not diagnostic for acute ischemia Admission labs are essentially within normal limits with troponin negative, NT- proBNP 130 Chest x-ray does not show any acute congestion or consolidation. Progress note 09/08/2024 Patient seen and examined at bedside this a.m. She still having hallucinations from her marijuana overdose but it is much better. She denies any chest pain chest pressure. She denies any anxiety or palpitation symptoms. She denies any chest pressure-like symptoms. She is doing well from cardiovascular standpoint. Blood pressure and vitals are within acceptable ranges. PHYSICAL EXAMINATION: Neck: Brisk carotid upstroke, no jugular venous distention. Lungs: Clear to auscultation. Heart: Regular rate and rhythm, S1-S2, , no murmur or rub. Abdomen: Soft nontender, positive bowel sounds. Extremities: No edema, intact distal pulses. Neuro: Alert, oritented, no focal deficits. Detailed neuro exam was not performed. ASSESSMENT: # Atypical chest pain, rule out of ACS # Marijuana overdose # Hallucinations and anxiety after eating marijuana # History of DVT and PE # Stable CAD with history of CAD status post PCI to diagonal # Essential hypertension # Dyslipidemia # History of CVA # BLANCO on CPAP # Morbid obesity # Chronic anemia PLAN: Continue her home medication without any changes Recommend using CPAP while she is sleeping in the room Obtain echocardiogram Patient is cleared from cardiovascular standpoint. If she ends up staying in the hospital tomorrow, perform echo otherwise it can be performed as an outpatient. Cardiology team will sign off Recommend outpatient follow-up Dr. Whitehead Objective - Vital Signs Vital signs: Vital Signs Temp 97.5 F L 09/08/24 07:00 Pulse 59 L 09/08/24 07:00 Resp 18 09/08/24 07:00 BP 131/69 09/08/24 07:00 Pulse Ox 93 L 09/08/24 07:00 FiO2 Intake & Output 09/07/24 09/08/24 09/08/24 18:59 06:59 18:59 Weight 122.47 kg 122.47 kg Other: Voiding Method Toilet # Voids 2 - Labs CBC & Chem 7: 09/07/24 07:33 09/07/24 07:33 Labs: Abnormal Lab Results - Last 24 Hours (Table) 09/07/24 Range/Units 08:21 PT 9.6 L (10.0-12.5) sec APTT 20.9 L (22.0-30.0) sec
[2024-09-08] MEDS: ASPIRIN 325 MG TAB PO SCH (08:57)
[2024-09-08] MEDS: TORSEMIDE 20 MG TAB PO SCH (08:57)
[2024-09-08 09:20] LABS: BUN/Creat Ratio 34.14 Ratio (12.00-20.00); Blood Urea Nitrogen 23.9 mg/dL (9.0-27.0); Calcium 8.5 mg/dL (8.7-10.3); Carbon Dioxide 22.7 mmol/L (21.6-31.8); Chloride 105 mmol/L (96-109); Chol/HDL Ratio 2.04 Ratio; Glucose 121 mg/dL (70-110); LDL Cholesterol,Calculated 40.6 mg/dL (0.0-131.0); Potassium 4.3 mmol/L (3.5-5.5); Sodium 137 mmol/L (135-145); VLDL Calculation 15.04 mg/dL (5.00-40.00)
[2024-09-08] MEDS: NON FORMULARY DRUG (Cariprazine Hcl [Vraylar] 1.5 MG Capsule) PO SCH (09:37)
[2024-09-08 09:58] LABS: Basophils # (A) 0.04 X 10*3/uL (0.00-0.10); Basophils % (A) 0.7 %; Eosinophils # (A) 0.22 X 10*3/uL (0.04-0.35); Eosinophils % (A) 3.6 %; HCT 37.9 % (37.2-46.3); HGB 11.7 g/dL (12.0-15.0); Lymphocytes % (A) 29.6 %; MCH 29.1 pg (27.0-32.0); MCHC 30.9 g/dL (32.0-37.0); MCV 94.3 FL (80.0-97.0); Mean Platelet Volume 10.7 FL (9.5-12.2); Monocytes # (A) 0.62 X 10*3/uL (0.20-1.00); Monocytes % (A) 10.2 %; NRBC Per 100 WBC 0 X 10*3/uL (0.00-0.01); Neutrophils # (A) 3.39 X 10*3/uL (1.80-7.70); Neutrophils % (A) 55.6 %; Platelet Count 278 X 10*3/uL (140-440); RBC 4.02 X 10*6/uL (4.10-5.20); RDW 13.3 % (11.5-14.5); WBC 6.09 X 10*3/uL (4.50-10.00)
[2024-09-08 14:15] VITALS: BP 106/62; PULSE 65
[2024-09-08] MEDS ORDERED: TIRZEPATIDE 5 MG/0.5 ML SQ SCH (20:15)
== END 2024-09-08 14:57 | disposition home or self-care (01) ==
LOC: EC 06:57 → 6NMEDSUR 08:50
PROVIDERS: ADMIT Internal Medicine; ATTEND Internal Medicine
DX: T40.711A Poisoning by cannabis, accidental (unintentional), initial encounter (principal); R07.89 Other chest pain; R44.3 Hallucinations, unspecified; R41.0 Disorientation, unspecified; I25.10 Atherosclerotic heart disease of native coronary artery without angina pectoris; G47.33 Obstructive sleep apnea (adult) (pediatric); E78.5 Hyperlipidemia, unspecified; D64.9 Anemia, unspecified; I11.0 Hypertensive heart disease with heart failure; I50.9 Heart failure, unspecified; I44.0 Atrioventricular block, first degree; I69.351 Hemiplegia and hemiparesis following cerebral infarction affecting right dominant side; F31.9 Bipolar disorder, unspecified; F41.9 Anxiety disorder, unspecified; M79.7 Fibromyalgia; E66.01 Morbid (severe) obesity due to excess calories; Z68.42 Body mass index [BMI] 45.0-49.9, adult; I25.2 Old myocardial infarction; Z79.01 Long term (current) use of anticoagulants; Z79.85 Long-term (current) use of injectable non-insulin antidiabetic drugs; Z79.899 Other long term (current) drug therapy; Z88.1 Allergy status to other antibiotic agents; Z88.2 Allergy status to sulfonamides; Z88.8 Allergy status to other drugs, medicaments and biological substances; Z91.048 Other nonmedicinal substance allergy status; Z95.5 Presence of coronary angioplasty implant and graft; Z86.718 Personal history of other venous thrombosis and embolism; Z86.711 Personal history of pulmonary embolism
CPT/HCPCS: 99285; 36415; 94760; 93005; 85379; 83880; 80061; 80053; 80048; 83735; 84484; 85025 ×2; 85610; 85730; 71046; G0378 ×2

== ENCOUNTER 2024-09-16 07:25 | Day surgery (SDC) | payer MEDICARE ==
--- NOTE | 2024-09-16 07:41 | P.GSHP ---
History of Present Illness H&P Date: 09/16/24 CHIEF COMPLAINT: GERD and dysphagia HISTORY OF PRESENT ILLNESS: The patient is a 69-year-old female who presents reports gastroesophageal reflux disease and dysphagia. Upper endoscopy was offered for further evaluation and management. PAST MEDICAL HISTORY: Please see list. PAST SURGICAL HISTORY: Please see list. MEDICATIONS: Please see list. ALLERGIES: Please see list. SOCIAL HISTORY: No illicit drug use FAMILY HISTORY: No reports of Crohn disease or ulcerative colitis. REVIEW OF ORGAN SYSTEMS: CONSTITUTIONAL: No reports of fevers or chills. GI: Denies any blood in stools or constipation. PHYSICAL EXAM: VITAL SIGNS: Stable GENERAL: Well-developed and pleasant in no acute distress. HEENT: No scleral icterus. Extraocular movements grossly intact. Moist buccal mucosa. NECK: Supple without lymphadenopathy. CHEST: Unlabored respirations. Equal bilateral excursions. CARDIOVASCULAR: Regular rate and rhythm. Distal 2+ pulses. ABDOMEN: Soft, nondistended. MUSCULOSKELETAL: No clubbing, cyanosis, or edema. ASSESSMENT: 1. Gastroesophageal reflux disease 2. Dysphagia PLAN: 1. 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 folds-mostly resolved currently, bilateral tinnitis. Alex-en-Y gastric bypass for morbid obesity, Peripheral Artery Disease, edema lower legs, recent stay in [facility]-pt. inadvertantly ingested a whole package of THC marijuana gummies-thought they were CBD-kept 2 days for observation Last Myocardial Infarction Date:: 2002 History of Any Multi-Drug Resistant Organisms: None Reported Past Surgical History: Bariatric Surgery, Hernia Repair, Hysterectomy, Joint Replacement, Orthopedic Surgery, Tubal Ligation Additional Past Surgical History / Comment(s): 10/19/19 PCI with stent, EGDs, colonoscopy/benign polyps, gastric bypass with revision, ventral and hiatal hernia repair, bladder suspension, R rotator curr repair/revision, L knee arthroscopy, rectocele, perinealplasty, 07/05/20 left shoulder replacement, right shoulder replacement Past Anesthesia/Blood Transfusion Reactions: No Reported Reaction, Motion Sickness Smoking Status: Never smoker - Past Family History Mother Family Medical History: Coronary Artery Disease (CAD), Eye Disorder Additional Family Medical History / Comment(s): Mother is 91 yrs old Father Family Medical History: Myocardial Infarction (MT) Additional Family Medical History / Comment(s): Father of a massive MT at the age of 53 yrs. Medications and Allergies Home Medications Medication Instructions Recorded Confirmed Type Apixaban [Eliquis] 5 mg PO BID 01/07/22 09/13/24 History Nystatin 100,000 Unit/gm Powd 1 applic TOPICAL TID 07/20/23 09/13/24 History [Mycostatin Powder] Gabapentin [Neurontin] 800 mg PO QID 08/21/24 09/13/24 History HYDROcodone/APAP 10-325MG [[place] 1 tab PO QID 08/21/24 09/13/24 History 10-325] Rosuvastatin [Crestor] 10 mg PO HS 08/21/24 09/13/24 History Tirzepatide [Zepbound] 5 mg SQ RALPH 08/21/24 09/13/24 History tiZANidine HCL 4 mg PO BID PRN 08/21/24 09/13/24 History Cariprazine HCl [Vraylar] 1.5 mg PO DAILY 09/07/24 09/13/24 History Topiramate [Topamax] 25 mg PO BID 09/07/24 09/13/24 History Torsemide [Demadex] 20 mg PO DAILY 09/07/24 09/13/24 History Triamcinolone 0.025% Cream 1 applic TOPICAL DAILY PRN 09/07/24 09/13/24 History [Kenalog 0.025% Cream] Vilazodone HCl [Viibryd] 20 mg PO HS 09/07/24 09/13/24 History rOPINIRole HCL [rOPINIRole HCL ER 6 mg PO QID 09/07/24 09/13/24 History (XL)] Nurtec(Unknown Dose) 1 tab PO DIRECTED PRN 09/13/24 History Allergies Allergy/AdvReac Type Severity Reaction Status Date / Time adhesive tape Allergy Swelling Verified 09/13/24 11:04 buspirone [From BuSpar] Allergy Itching Verified 09/13/24 11:04 cefprozil [From Cefzil] Allergy Unknown Verified 09/13/24 11:04 cyclobenzaprine Allergy Rash/Hives Verified 09/13/24 11:04 [From Flexeril] Sulfa (Sulfonamide Allergy Rash/Hives Verified 09/13/24 11:04 Antibiotics) torsemide Allergy Nausea Verified 09/13/24 11:04 valdecoxib [From Bextra] Allergy Unknown Verified 09/13/24 11:04 metaxalone [From Skelaxin] AdvReac Nausea & Verified 09/13/24 11:04 Vomiting
[2024-09-16 07:59] VITALS: RESP 16; TEMP 97.4
[2024-09-16] MEDS: IV FLUID CONTINUATION 1,000 ML IV ONE (08:01)
[2024-09-16] MEDS: LACTATED RINGERS 1,000 ML IV SCH (08:11)
[2024-09-16 08:33] LABS: Glucose,Whole Blood 84 mg/dL (70-110)
[2024-09-16] MEDS ORDERED: PROPOFOL 10 MG/ML 20 ML VIAL IV ONE (09:26)
--- NOTE | 2024-09-16 10:03 | P.PCN ---
Date of Procedure: 09/16/24 Description of Procedure: PREOPERATIVE DIAGNOSIS: Dysphagia. Nausea with vomiting. POSTOPERATIVE DIAGNOSIS: Dysphagia. Upper esophageal stenosis Presbyesophagus OPERATION: Esophagogastrojejunoscopy with rigid dilator, 54-Fijian to address upper esophageal stenosis SURGEON: Randi Felton MD ANESTHESIA: MAC. INDICATIONS: The patient is a 69-year-old female who presents with a history of dysphagia, including nausea and vomiting. Benefits and risks of the procedure were described. Informed consent was obtained. DESCRIPTION: The patient was brought into the endoscopy suite and laid in the left lateral decubitus position. After a timeout was confirmed, the procedure was initiated. An Olympus gastroscope was passed along the posterior oropharynx down to the distal esophagus where the squamocolumnar junction was unremarkable. Moderate tertiary contractions consistent with presbyesophagus was found. The gastric pouch was entered. A gastrojejunal stricture of 15 mm was found as the adult gastroscope was 9.5 mm in size. Attention was brought to the upper esophageal stenosis. A rigid dilator, 54 Fijian was placed over a guidewire to 45 cm from the incisors and left for 2 minutes after exchanging the scope. The scope was advanced up to 60 cm from the incisors into the Alex limb. The mucosa of the gastrojejunal anastomosis was intact. No chronic gastrojejunal marginal ulcer was encountered. No full- thickness injury was encountered. The GI tract was desufflated. The patient t olerated the procedure well. FINDINGS: Squamocolumnar junction unremarkable at 37 cm. Moderate to severe tertiary contractions for presbyesophagus Rigid dilation of upper esophageal sphincter, 54-Fijian No chronic gastrojejunal ulceration encountered. RECOMMENDATIONS: Upper endoscopy as needed. Plan - Discharge Summary Discharge Rx Participant: No New Discharge Prescriptions: Continue Apixaban [Eliquis] 5 mg PO BID tiZANidine HCL 4 mg PO BID PRN PRN Reason: Muscle Pain Tirzepatide [Zepbound] 5 mg SQ RALPH Rosuvastatin [Crestor] 10 mg PO HS HYDROcodone/APAP 10-325MG [[place] 10-325] 1 tab PO QID Gabapentin [Neurontin] 800 mg PO QID Topiramate [Topamax] 25 mg PO BID Triamcinolone 0.025% Cream [Kenalog 0.025% Cream] 1 applic TOPICAL DAILY PRN PRN Reason: Skin Irritation Torsemide [Demadex] 20 mg PO DAILY Nurtec(Unknown Dose) 1 tab PO DIRECTED PRN PRN Reason: Migraine Headache Nystatin 100,000 Unit/gm Powd [Mycostatin Powder] 1 applic TOPICAL TID rOPINIRole HCL [rOPINIRole HCL ER (XL)] 6 mg PO QID Vilazodone HCl [Viibryd] 20 mg PO HS Cariprazine HCl [Vraylar] 1.5 mg PO DAILY Discharge Medication List Apixaban [Eliquis] 5 mg PO BID 01/07/22 [History] Nystatin 100,000 Unit/gm Powd [Mycostatin Powder] 1 applic TOPICAL TID 07/20/23 [History] Gabapentin [Neurontin] 800 mg PO QID 08/21/24 [History] HYDROcodone/APAP 10-325MG [[place] 10-325] 1 tab PO QID 08/21/24 [History] Rosuvastatin [Crestor] 10 mg PO HS 08/21/24 [History] Tirzepatide [Zepbound] 5 mg SQ RALPH 08/21/24 [History] tiZANidine HCL 4 mg PO BID PRN 08/21/24 [History] Cariprazine HCl [Vraylar] 1.5 mg PO DAILY 09/07/24 [History] Topiramate [Topamax] 25 mg PO BID 09/07/24 [History] Torsemide [Demadex] 20 mg PO DAILY 09/07/24 [History] Triamcinolone 0.025% Cream [Kenalog 0.025% Cream] 1 applic TOPICAL DAILY PRN 09/07/24 [History] Vilazodone HCl [Viibryd] 20 mg PO HS 09/07/24 [History] rOPINIRole HCL [rOPINIRole HCL ER (XL)] 6 mg PO QID 09/07/24 [History] Nurtec(Unknown Dose) 1 tab PO DIRECTED PRN 09/13/24 [History] [facility] [place] [place] [facility] [place] 3:00 pm Patient Instructions/Handouts: Esophageal Dilation (DC) Activity/Diet/Wound Care/Special Instructions: Restart blood thinner 09/17/2024. Warm fluids today including prior to eating Discharge Disposition: HOME SELF-CARE
[2024-09-16 10:22] VITALS: BP 103/65; PULSE 73
== END 2024-09-16 10:52 | disposition home or self-care (01) ==
LOC: ORWHC2ENDO 07:25
PROVIDERS: ATTEND Surgery Plastic and Reconstructive Surgery
DX: K22.2 Esophageal obstruction (principal); K21.9 Gastro-esophageal reflux disease without esophagitis; K22.89 Other specified disease of esophagus; I11.0 Hypertensive heart disease with heart failure; I50.9 Heart failure, unspecified; I25.10 Atherosclerotic heart disease of native coronary artery without angina pectoris; I25.2 Old myocardial infarction; Z95.5 Presence of coronary angioplasty implant and graft; E78.5 Hyperlipidemia, unspecified; G47.33 Obstructive sleep apnea (adult) (pediatric); E03.9 Hypothyroidism, unspecified; J44.89 Other specified chronic obstructive pulmonary disease; M79.7 Fibromyalgia; G40.909 Epilepsy, unspecified, not intractable, without status epilepticus; K58.9 Irritable bowel syndrome, unspecified; I69.351 Hemiplegia and hemiparesis following cerebral infarction affecting right dominant side; F03.90 Unspecified dementia, unspecified severity, without behavioral disturbance, psychotic disturbance, mood disturbance, and anxiety; G25.81 Restless legs syndrome; D64.9 Anemia, unspecified; M81.0 Age-related osteoporosis without current pathological fracture; I73.9 Peripheral vascular disease, unspecified; N28.9 Disorder of kidney and ureter, unspecified; H91.90 Unspecified hearing loss, unspecified ear; Z79.01 Long term (current) use of anticoagulants; Z79.891 Long term (current) use of opiate analgesic; Z79.85 Long-term (current) use of injectable non-insulin antidiabetic drugs; Z79.899 Other long term (current) drug therapy; Z86.718 Personal history of other venous thrombosis and embolism; Z86.711 Personal history of pulmonary embolism; Z91.81 History of falling; Z98.84 Bariatric surgery status; Z88.1 Allergy status to other antibiotic agents; Z88.8 Allergy status to other drugs, medicaments and biological substances; Z88.2 Allergy status to sulfonamides; Z91.048 Other nonmedicinal substance allergy status
CPT/HCPCS: 43248; J2704

== ENCOUNTER → 2024-09-26 | Outpatient (CLI) | payer MEDICARE ==
[2024-09-26 16:16] LABS: INR 0.9 (<1.2); Partial Thromboplastin Time 23.3 sec (22.0-30.0)
[2024-09-26 20:10] LABS: HCT 39.8 % (37.2-46.3); HGB 12.2 g/dL (12.0-15.0); MCH 28.8 pg (27.0-32.0); MCHC 30.7 g/dL (32.0-37.0); MCV 93.9 FL (80.0-97.0); Mean Platelet Volume 10.3 FL (9.5-12.2); NRBC Per 100 WBC 0 X 10*3/uL (0.00-0.01); Platelet Count 330 X 10*3/uL (140-440); RBC 4.24 X 10*6/uL (4.10-5.20); RDW 13.8 % (11.5-14.5); WBC 7.02 X 10*3/uL (4.50-10.00)
[2024-09-27 00:31] LABS: % Iron Saturation 13.32 (12.00-45.00); Ferritin 36.4 ng/mL (10.0-291.0); Iron 57 UG/DL (50-170); Magnesium 2.3 mg/dL (1.5-2.4); Total Iron Binding Capacity 428 UG/DL (228-460)
[2024-09-27 00:47] LABS: ALT 13 U/L (8-44); AST 21 U/L (13-35); Albumin/Globulin Ratio 1.74 Ratio (1.60-3.17); Alkaline Phosphatase 107 U/L (41-126); BUN/Creat Ratio 30.14 Ratio (12.00-20.00); Blood Urea Nitrogen 21.1 mg/dL (9.0-27.0); Carbon Dioxide 21.5 mmol/L (21.6-31.8); Chloride 107 mmol/L (96-109); Chol/HDL Ratio 2.25 Ratio; Globulin 2.3 g/dL (1.6-3.3); Glucose 100 mg/dL (70-110); LDL Cholesterol,Calculated 57.6 mg/dL (0.0-131.0); Potassium 4.7 mmol/L (3.5-5.5); Sodium 144 mmol/L (135-145); Total Bilirubin 0.4 mg/dL (0.3-1.2); Total Protein 6.3 g/dL (6.2-8.2)
[2024-09-27 10:48] LABS: Zinc, Serum 58 ug/dL (60-130)
[2024-09-27 15:24] LABS: Prealbumin 18.5 mg/dL (18.0-42.0)
== END | disposition home or self-care (01) ==
LOC: LABWHC1 15:17
PROVIDERS: ATTEND Surgery Plastic and Reconstructive Surgery
DX: E66.01 Morbid (severe) obesity due to excess calories (principal); D50.8 Other iron deficiency anemias; E89.1 Postprocedural hypoinsulinemia; E44.0 Moderate protein-calorie malnutrition; E45 Retarded development following protein-calorie malnutrition; N19 Unspecified kidney failure; K91.2 Postsurgical malabsorption, not elsewhere classified; K74.1 Hepatic sclerosis; T56.894A Toxic effect of other metals, undetermined, initial encounter
CPT/HCPCS: 36415; 80053; 80061; 82306; 82525; 82607; 82728; 82746; 83036; 83540; 83550; 83735; 83970; 84100; 84134; 84255; 84425; 84443; 84590; 84630; 85027; 85610; 85730

== ENCOUNTER → 2024-09-26 | Outpatient (CLI) | payer MEDICARE ==
[2024-09-26 14:49] VITALS: BP 115/79; PULSE 88; RESP 16; TEMP 97.7
--- NOTE | 2024-09-26 15:16 | P.SLEEP ---
History of Present Illness DATE: 09/26/2024 CONSULTATION/NEW PATIENT EVALUATION HISTORY OF PRESENT ILLNESS/SLEEP-WAKE EVALUATION: 69-year-old lady had been e valuated in the sleep center for possible obstructive sleep apnea hypopnea syndrome. Patient has history of obstructive sleep apnea diagnosed more than 10 years ago, but at that time secondary to mask problems she was not able to use CPAP equipment. SLEEP SCHEDULE: Usually sleep schedule from 2 AM until about 5 AM. FALLING ASLEEP: Patient has significant problems with falling asleep secondary t o restless leg symptoms and pain. DURING SLEEP: Patient snores, has episodes of stop breathing during the sleep, wakes up from sleep multiple times. Positive history of night terrors. Positive history of palpitation, grinding teeth, sleep talking no history of hypnogogical hallucinations, sleep paralysis, or cataplexy. DURING THE DAY/WAKE STATE: In the morning patient wake up tired, has diffic ulties to pay attention, has problems with memory, concentration, depression and anxiety. Bethune sleepiness scale is increased to 11. Patient may take 1 nap in the afternoon time. 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 PAST SURGICAL HISTORY: Hysterectomy, gastric bypass surgery, stent insertion to coronary artery. MEDICATIONS: Please see below. SOCIAL HISTORY: Please see below. FAMILY HISTORY: Please see below. REVIEW OF SYSTEMS: Snoring, multiple awakenings from sleep, sleepiness during the day. No fevers. No double vision. No recent chest pain. No shortness of breath. No abdominal pain. No bleeding episodes. No blood in urine. No seizure episodes. PHYSICAL EXAMINATION: GENERAL: A pleasant patient without any distress. VITAL SIGNS: Please see below, weight 274 pounds, BMI 55.3. HEENT: PERRLA, EOMI. Evaluation of oropharynx showed tongue protrudes midline, low position of soft palate Mallampati 4. NECK: Supple. No JVD. Thyroid is not palpable. 15.5 inches in circumference. LUNGS: Clear to percussion and to auscultation. Good air exchange. No wheezing or rhonchi. HEART: S1, S2 regular. No murmurs, gallops or rubs. ABDOMEN: Soft and nontender. Bowel sounds are present. No organomegaly appreciated. EXTREMITIES: No clubbing or cyanosis. SWIMMING POOL INSTALLER: Awake, alert, and oriented x3. Cranial nerves 2 to 7 intact. There is no fasciculation or atrophy noted. No focal deficits observed. ASSESSMENT: 1. Snoring, multiple awakenings from sleep, extremely low position of soft palate, sleepiness with Bethune Sleepiness Scale 11. Obstructive sleep apnea hypopnea syndrome. 2. Obesity, BMI 55.3. 3. History of stroke with residual right-sided weakness. 4. Coronary artery disease, status post stent insertion. 5 asthma. 6 . Fibromyalgia. 7. Sinuses problems. 8. Headaches. 9 . History of pernicious anemia. 10. Status post hysterectomy. 11. Status post gastric bypass surgery. PLAN: 1. Polysomnography for evaluation of patient's breathing during sleep. 2. Following plan after reading sleep study. 3. Preferable position during sleep on the side. 4. No driving if patient feels any sleepiness. Patient is aware of civil and criminal liability for unsafe driving. 5. Sleep hygiene with regular sleep time for at least 7.5-8 hours. 6. Watching and losing weight. Thank you very much for referring this patient for consultation. Sincerely, Fabian Snow MD, PhD, FAASM. Diplomat of [place] [employer], Sleep Medicine Board by [place] [employer] [place] [employer] [facility] cc: John Machado MD Past Medical History Past Medical History: Asthma, Coronary Artery Disease (CAD), Chest Pain / An tomas, Heart Failure, COPD, CVA/TIA, Deep Vein Thrombosis (DVT), Fibromyalgia, GERD/Reflux, GI Bleed, Hearing Disorder / Deafness, Hyperlipidemia, Hypertension, Memory Impairment, Myocardial Infarction (LA), Osteoarthritis (OA), Pneumonia, Pulmonary Embolus (PE), Renal Disease, Respiratory Disorder, Seizure Disorder, Skin Disorder, Sleep Apnea/CPAP/BIPAP, Thyroid Disorder Additional Past Medical History / Comment(s): 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 Alex-en-Y gastric bypass for morbid obesity, Peripheral Artery Disease Last Myocardial Infarction Date:: 2002 History of Any Multi-Drug Resistant Organisms: None Reported Past Surgical History: Bariatric Surgery, Hernia Repair, Hysterectomy, Joint Replacement, Orthopedic Surgery, Tubal Ligation Additional Past Surgical History / Comment(s): 10/19/19 PCI with stent, EGDs, colonoscopy/benign polyps, gastric bypass with revision, ventral and hiatal hernia repair, bladder suspension, R rotator curr repair/revision, L knee arthroscopy, rectocele, perinealplasty, 07/05/20 left shoulder replacement, 11/11/21 right shoulder replacement Past Anesthesia/Blood Transfusion Reactions: Previous Problems w/ Anesthesia, Motion Sickness Additional Past Anesthesia/Blood Transfusion Reaction / Comment(s): HAD STROKE LIKE MOVEMENTS POST OP 2019 Past Psychological History: Anxiety, Depression Additional Psychological History / Comment(s): Patient drives. She has depression and is in compliance with her medication. She used to see someone for her mental health. Smoking Status: Never smoker Past Alcohol Use History: Rare Past Drug Use History: None Reported - Past Family History Mother Family Medical History: Coronary Artery Disease (CAD), Eye Disorder, Pneumonia, Thyroid Disorder Additional Family Medical History / Comment(s): Mother is 91 yrs old, MENTAL ILLNESS, ANEMIA Father Family Medical History: Coronary Artery Disease (CAD), Myocardial Infarction (LA) Additional Family Medical History / Comment(s): Father of a massive LA at the age of 53 yrs., EMPHYSEMA Medications and Allergies Home Medications Medication Instructions Recorded Confirmed Type Apixaban [Eliquis] 5 mg PO BID 01/07/22 09/16/24 History Nystatin 100,000 Unit/gm Powd 1 applic TOPICAL TID 07/20/23 09/16/24 History [Mycostatin Powder] Gabapentin [Neurontin] 800 mg PO QID 08/21/24 09/16/24 History HYDROcodone/APAP 10-325MG [[place] 1 tab PO QID 08/21/24 09/16/24 History 10-325] Rosuvastatin [Crestor] 10 mg PO HS 08/21/24 09/16/24 History Tirzepatide [Zepbound] 5 mg SQ RALPH 08/21/24 09/16/24 History tiZANidine HCL 4 mg PO BID PRN 08/21/24 09/16/24 History Cariprazine HCl [Vraylar] 1.5 mg PO DAILY 09/07/24 09/16/24 History Topiramate [Topamax] 25 mg PO BID 09/07/24 09/16/24 History Torsemide [Demadex] 20 mg PO DAILY 09/07/24 09/16/24 History Triamcinolone 0.025% Cream 1 applic TOPICAL DAILY PRN 09/07/24 09/16/24 History [Kenalog 0.025% Cream] Vilazodone HCl [Viibryd] 20 mg PO HS 09/07/24 09/16/24 History rOPINIRole HCL [rOPINIRole HCL ER 6 mg PO QID 09/07/24 09/16/24 History (XL)] Nurtec(Unknown Dose) 1 tab PO DIRECTED PRN 09/13/24 09/16/24 History Allergies Allergy/AdvReac Type Severity Reaction Status Date / Time adhesive tape Allergy Swelling Verified 09/16/24 08:02 buspirone [From BuSpar] Allergy Itching Verified 09/16/24 08:02 cefprozil [From Cefzil] Allergy Unknown Verified 09/16/24 08:02 cyclobenzaprine Allergy Rash/Hives Verified 09/16/24 08:02 [From Flexeril] Sulfa (Sulfonamide Allergy Rash/Hives Verified 09/16/24 08:02 Antibiotics) valdecoxib [From Bextra] Allergy Unknown Verified 09/16/24 08:02 metaxalone [From Skelaxin] AdvReac Nausea & Verified 09/16/24 08:02 Vomiting Physical Exam Vitals: Vital Signs Temp Pulse Resp BP Pulse Ox 09/26/24 14:39 97.7 F 88 16 115/79 95 Intake and Output 09/26/24 09/26/24 09/26/24 06:59 14:59 22:59 Other: Weight 124.284 kg Sleep Note - Sleep Data ESS Total: 11 - Sleep Note Sleep Note: Temperature: 97.7 F Pulse Rate: 88 Respiratory Rate: 16 Blood Pressure: 115/79 SpO2: 95 Height: 4 ft 11.5 in Weight: 124.284 kg BMI: Neck Circumference: 15.5
== END ==
LOC: 3 N SLEEP 14:25
PROVIDERS: ATTEND Internal Medicine
DX: G47.33 Obstructive sleep apnea (adult) (pediatric) (principal); E66.9 Obesity, unspecified; Z68.43 Body mass index [BMI] 50.0-59.9, adult; I25.10 Atherosclerotic heart disease of native coronary artery without angina pectoris; Z95.5 Presence of coronary angioplasty implant and graft; J45.909 Unspecified asthma, uncomplicated; M79.7 Fibromyalgia; R51.9 Headache, unspecified; Z90.710 Acquired absence of both cervix and uterus; Z98.84 Bariatric surgery status; J01.90 Acute sinusitis, unspecified; Z86.718 Personal history of other venous thrombosis and embolism; Z86.73 Personal history of transient ischemic attack (TIA), and cerebral infarction without residual deficits; Z91.048 Other nonmedicinal substance allergy status; Z88.1 Allergy status to other antibiotic agents; Z88.2 Allergy status to sulfonamides; Z88.8 Allergy status to other drugs, medicaments and biological substances
CPT/HCPCS: 99211

== ENCOUNTER 2024-09-28 18:32 | Emergency (ER) | payer MEDICARE ==
[2024-09-28 18:37] VITALS: RESP 18
--- NOTE | 2024-09-28 19:07 | CT ---
EXAMINATION TYPE: CT brain cspine wo con CT DLP: 1680.3 mGycm, Automated exposure control for dose reduction was used. DATE OF EXAM: 09/28/2024 6:56 PM COMPARISON: CT brain 03/12/2024, CT brain C-spine 08/24/2023. CLINICAL INDICATION:Female, 69 years old with history of fall on thinners; fall on thinners, pain TECHNIQUE: Brain: Multiple axial CT images of the brain were obtained without IV contrast. Cspine: Axial CT images from the skull base to the inferior aspect of T2 we obtained without intraven ous contrast. Coronal and sagittal reformatted images were also reviewed. FINDINGS: Brain: Extra-axial spaces: No abnormal extra-axial fluid collections. Ventricular system: Within normal limits Cerebral parenchyma: Age-appropriate mild cerebral atrophy. Most pronounced involving the bilateral f rontal lobes. No acute intraparenchymal hemorrhage or mass effect. The asmayoa-white junction is well d ifferentiated. Scattered hypoattenuating areas are seen within the periventricular white matter. Red emonstration of small lacunar infarct or Virchow-Myron spaces in the left basal ganglion. Partial emp ty sella. Cerebellum: Unremarkable. Mass effect: No evidence of midline shift. Intracranial vasculature: Atherosclerotic calcifications of the intracranial vessels. Soft tissues: Normal. Calvarium/osseous structures: No depressed skull fracture. Paranasal sinuses and mastoid air cells: The left mastoid air cells are clear. Trace chronic inferior right mastoid air cell opacification. The paranasal sinuses are clear. Visualized orbits: Bilateral aphakia Cervical spine: Fracture: None. Osseous structures: Diffuse bone demineralization. Multilevel degenerative disc disease changes with endplate spurring and disc osteophyte complex's. Partial visualization of bilateral shoulder arthropl asty changes. Vertebral alignment: Similar grade 1 retrolisthesis of C3 on C4 and grade 1 anterolisthesis of C6 on C7. Spinal canal/Neural Foramina: No evidence of significant spinal canal narrowing. No evidence for sign ificant neural foraminal stenosis. Neck soft tissues: Prevertebral soft tissues are within normal limits. Other: The airway is patent. The lung apices are clear. Retropharyngeal course of the bilateral commo n carotid arteries. IMPRESSION: 1. No acute intracranial process. 2. Nonspecific minimal white matter changes, likely secondary to chronic small vessel ischemic diseas e. 3. No evidence of cervical spine fracture. 4. Mild multilevel degenerative disc disease. [facility], , 09/28/2024 7:05 PM
--- NOTE | 2024-09-28 19:42 | XR ---
EXAMINATION TYPE: XR ribs LT w pa chest xray DATE OF EXAM: 09/28/2024 7:36 PM INDICATION: Patient age:Female; 69 years old; Reason for study: fall; [facility]. pain COMPARISON: Chest radiograph 09/07/2024 TECHNIQUE: Frontal and oblique views of the left ribs with additional PA chest radiograph. FINDINGS: The ribs have a normal appearance. No evidence of fracture. Bilateral shoulder arthroplast y changes. Overall, the lungs are clear. The cardiac silhouette is normal in size. The remaining os seous structures are intact. Thoracic spinal stimulator leads with power pack identified. Postsurgica l changes at the GE junction. IMPRESSION: No acute osseous pathology. [facility], , 09/28/2024 7:40 PM
--- NOTE | 2024-09-28 19:44 | XR ---
EXAMINATION TYPE: XR Hip LT and AP Pelvis DATE OF EXAM: 09/28/2024 7:39 PM INDICATION: Patient age:Female; 69 years old; Reason for study: fall; [facility]. pain COMPARISON: CT abdomen pelvis 07/24/2023, pelvic radiograph 02/01/2022 TECHNIQUE: The left hip was examined in the frontal and lateral projections and a AP pelvis. FINDINGS: No evidence of any acute osseous pathology, joint dislocation, or soft tissue swelling. Par tial visualization of left abdomen spinal stimulator power pack. A few pelvic phleboliths. IMPRESSION: No acute osseous pathology. [facility], , 09/28/2024 7:41 PM
--- NOTE | 2024-09-28 19:45 | XR ---
EXAMINATION TYPE: XR forearm RT DATE OF EXAM: 09/28/2024 7:39 PM INDICATION: Patient age:Female; 69 years old; Reason for study: trauma; [facility]. pain COMPARISON: None TECHNIQUE: The right forearm was examined in AP and lateral projections. FINDINGS: No acute osseous pathology, soft tissue swelling or joint dislocations are seen. Small mid forearm soft tissue calcification. IMPRESSION: No evidence of acute fracture. [facility], , 09/28/2024 7:43 PM
--- NOTE | 2024-09-28 19:48 | XR ---
EXAMINATION TYPE: XR knee complete RT DATE OF EXAM: 09/28/2024 7:39 PM INDICATION: Patient age:Female; 69 years old; Reason for study: fall; [facility]. pain COMPARISON: Right knee radiograph 02/01/2022 TECHNIQUE: The Right knee(s) was examined in Frontal, lateral and oblique projections. FINDINGS: No evidence of any acute osseous pathology, soft tissue swelling, or joint effusion is no tatiana. Tricompartmental osteophyte formation involving the femoral condyles, tibial plateau and patella. Mi ld joint space narrowing. Few scattered lower extremity soft tissue calcifications redemonstrated. Po ssibly related to venous insufficiency. IMPRESSION: 1. No acute osseous pathology. 2. Moderate tricompartmental osteoarthritic changes. [facility], , 09/28/2024 7:45 PM
--- NOTE | 2024-09-28 20:31 | ED ---
Fall HPI - General Chief Complaint: Fall Stated Complaint: fall Time Seen by Provider: 09/28/24 18:35 Source: EMS Mode of arrival: EMS - History of Present Illness Initial Comments: 69-year-old female with past medical history of coronary artery disease, heart failure who presents emergency department after a fall. Patient states that she was by the door when she tripped on a piece of carpet. She fell forward and hit her head. States that she also twisted and injured her wrists and knees. Patient is on Eliquis. She denies losing consciousness. No nausea or vomiting. No confusion. No neck or back pain. No other alleviating, precipitating modifying factors - Related Data Home Medications Medication Instructions Recorded Confirmed Apixaban [Eliquis] 5 mg PO BID 01/07/22 09/16/24 Nystatin 100,000 Unit/gm Powd 1 applic TOPICAL TID 07/20/23 09/16/24 [Mycostatin Powder] Gabapentin [Neurontin] 800 mg PO QID 08/21/24 09/16/24 HYDROcodone/APAP 10-325MG [[place] 1 tab PO QID 08/21/24 09/16/24 10-325] Rosuvastatin [Crestor] 10 mg PO HS 08/21/24 09/16/24 Tirzepatide [Zepbound] 5 mg SQ RALPH 08/21/24 09/16/24 tiZANidine HCL 4 mg PO BID PRN 08/21/24 09/16/24 Cariprazine HCl [Vraylar] 1.5 mg PO DAILY 09/07/24 09/16/24 Topiramate [Topamax] 25 mg PO BID 09/07/24 09/16/24 Torsemide [Demadex] 20 mg PO DAILY 09/07/24 09/16/24 Triamcinolone 0.025% Cream 1 applic TOPICAL DAILY PRN 09/07/24 09/16/24 [Kenalog 0.025% Cream] Vilazodone HCl [Viibryd] 20 mg PO HS 09/07/24 09/16/24 rOPINIRole HCL [rOPINIRole HCL ER 6 mg PO QID 09/07/24 09/16/24 (XL)] Nurtec(Unknown Dose) 1 tab PO DIRECTED PRN 09/13/24 09/16/24 Allergies Allergy/AdvReac Type Severity Reaction Status Date / Time adhesive tape Allergy Swelling Verified 09/28/24 18:38 buspirone [From BuSpar] Allergy Itching Verified 09/28/24 18:38 cefprozil [From Cefzil] Allergy Unknown Verified 09/28/24 18:38 cyclobenzaprine Allergy Rash/Hives Verified 09/28/24 18:38 [From Flexeril] Sulfa (Sulfonamide Allergy Rash/Hives Verified 09/28/24 18:38 Antibiotics) valdecoxib [From Bextra] Allergy Unknown Verified 09/28/24 18:38 metaxalone [From Skelaxin] AdvReac Nausea & Verified 09/28/24 18:38 Vomiting Review of Systems ROS Statement: Those systems with pertinent positive or pertinent negative responses have been documented in the HPI. ROS Other: All systems not noted in ROS Statement are negative. 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 Alex-en-Y gastric bypass for morbid obesity, Peripheral Artery Disease Last Myocardial Infarction Date:: 2002 History of Any Multi-Drug Resistant Organisms: None Reported Past Surgical History: Bariatric Surgery, Hernia Repair, Hysterectomy, Joint Replacement, Orthopedic Surgery, Tubal Ligation Additional Past Surgical History / Comment(s): 10/19/19 PCI with stent, EGDs, colonoscopy/benign polyps, gastric bypass with revision, ventral and hiatal hernia repair, bladder suspension, R rotator curr repair/revision, L knee arthroscopy, rectocele, perinealplasty, 07/05/20 left shoulder replacement, 11/11/21 right shoulder replacement Past Anesthesia/Blood Transfusion Reactions: Previous Problems w/ Anesthesia, Motion Sickness Additional Past Anesthesia/Blood Transfusion Reaction / Comment(s): HAD STROKE LIKE MOVEMENTS POST OP 2019 Past Psychological History: Anxiety, Depression Smoking Status: Never smoker Past Alcohol Use History: Rare Past Drug Use History: None Reported - Past Family History Mother Family Medical History: Coronary Artery Disease (CAD), Eye Disorder, Pneumonia, Thyroid Disorder Additional Family Medical History / Comment(s): Mother is 91 yrs old, MENTAL ILLNESS, ANEMIA Father Family Medical History: Coronary Artery Disease (CAD), Myocardial Infarction (ID) Additional Family Medical History / Comment(s): Father of a massive ID at the age of 53 yrs., EMPHYSEMA General Exam General appearance: alert, in no apparent distress Head exam: Present: atraumatic, normocephalic, normal inspection Eye exam: Present: normal appearance, PERRL, EOMI. Absent: scleral icterus, conjunctival injection, periorbital swelling ENT exam: Present: normal exam, mucous membranes moist Neck exam: Present: normal inspection. Absent: tenderness, meningismus, lymphadenopathy Respiratory exam: Present: normal lung sounds bilaterally. Absent: respiratory distress, wheezes, rales, rhonchi, stridor Cardiovascular Exam: Present: regular rate, normal rhythm, normal heart sounds. Absent: systolic murmur, diastolic murmur, rubs, gallop, clicks GI/Abdominal exam: Present: soft, normal bowel sounds. Absent: distended, te nderness, guarding, rebound, rigid Extremities exam: Present: normal inspection, full ROM, normal capillary refill. Absent: tenderness, pedal edema, joint swelling, calf tenderness Back exam: Present: normal inspection Neurological exam: Present: alert, oriented X3, CN II-XII intact Psychiatric exam: Present: normal affect, normal mood Skin exam: Present: warm, dry, intact, normal color. Absent: rash Course Vital Signs 09/28/24 09/28/24 09/28/24 18:34 19:48 20:57 Temperature 98.2 F 97.8 F 97.9 F Pulse Rate 72 62 68 Respiratory 18 18 18 Rate Blood Pressure 136/81 136/84 142/74 O2 Sat by Pulse 98 100 98 Oximetry Medical Decision Making - Medical Decision Making Was pt. sent in by a medical professional or institution (, CHARAN, DIRECTOR OF ESTATE, urgent care, hospital, or fpc...) When possible be specific @ -No Did you speak to anyone other than the patient for history (EMS, parent, family, police, friend...)? What history was obtained from this source @ -Spoke with EMS for history Did you review nursing and triage notes (agree or disagree)? Why? @ -I reviewed and agree with nursing and triage notes Were old charts reviewed (outside hosp., previous admission, EMS record, old EKG, old radiological studies, urgent care reports/EKG's, fpc records)? Report findings @ -No old charts were reviewed Differential Diagnosis (chest pain, altered mental status, abdominal pain women, abdominal pain men, vaginal bleeding, weakness, fever, dyspnea, syncope, headache, dizziness, GI bleed, back pain, seizure, CVA, palpatations, mental health, musculoskeletal)? @ -Differential Musculoskeletal Muscular strain, contusion, ligament sprain, fracture, arthritis, septic arthritis, bursitis, cellulitis, muscle spasm, nerve compression, DVT, arterial occlusion, herpes zoster, electrolyte abnormality, tumor.... This is not meant to be in all inclusive list EKG interpreted by me (3pts min.). @ -Not done X-rays interpreted by me (1pt min.). @ -Yes which demonstrates no acute process CT interpreted by me (1pt min.). @ -Yes which demonstrates no acute intracranial process U/S interpreted by me (1pt. min.). @ -None done What testing was considered but not performed or refused? (CT, X-rays, U/S, labs)? Why? @ -None What meds were considered but not given or refused? Why? @ -None Did you discuss the management of the patient with other professionals (professionals i.e. CHARAN Adams, DIRECTOR OF ESTATE, lab, RT, psych nurse, social worker assistant, family practitioner, teacher, amphibious operations officer, cyanide case hardener)? Give summary @ -No Was smoking cessation discussed for >3mins.? @ -No Was critical care preformed (if so, how long)? @ -No Were there social determinants of health that impacted care today? How? (Homelessness, low income, unemployed, alcoholism, drug addiction, transportation, low edu. Level, literacy, decrease access to med. care, shelter, rehab)? @ -No Was there de-escalation of care discussed even if they declined (Discuss DNR or withdrawal of care, Hospice)? DNR status @ -No What co-morbidities impacted this encounter? (DM, HTN, Smoking, COPD, CAD, Cancer, CVA, ARF, Chemo, Hep., AIDS, mental health diagnosis, sleep apnea, morbid obesity)? @ -Obesity Was patient admitted / discharged? Hospital course, mention meds given and route, prescriptions, significant lab abnormalities, going to OR and other pertinent info. @ -Upon arrival patient seen and evaluated in room 2. Thorough history and physical exam was performed. Patient is sent for CT of head and cervical spine after code coag is called. X-rays were performed of the patient's chest, ribs, hip, pelvis, forearm and knee. X-rays are negative. Patient is able to get up and ambulate. She is not requiring any pain medications. At this time she will be discharged home. Instructed to return for any new or worsening symptoms. Patient discharged in stable condition Undiagnosed new problem with uncertain prognosis? @ -No Drug Therapy requiring intensive monitoring for toxicity (Heparin, Nitro, Insulin, Cardizem)? @ -No Were any procedures done? @ -No Diagnosis/symptom? @ -Acute fall, blunt head trauma Acute, or Chronic, or Acute on Chronic? @ -Acute Uncomplicated (without systemic symptoms) or Complicated (systemic symptoms)? @ -Complicated Side effects of treatment? @ -No Exacerbation, Progression, or Severe Exacerbation? @ -No Poses a threat to life or bodily function? How? (Chest pain, USA, ID, pneumonia, PE, COPD, DKA, ARF, appy, cholecystitis, CVA, Diverticulitis, Homicidal, Suicidal, threat to staff... and all critical care pts) @ -No Disposition Clinical Impression: Fall, Blunt head trauma, Knee pain Disposition: HOME SELF-CARE Condition: Stable Instructions (If sedation given, give patient instructions): Fall Prevention (ED) Additional Instructions: Please follow-up with your primary care doctor. Have repeat imaging performed if your pain persist. Return for any new or worsening symptoms Is patient prescribed a controlled substance at d/c from ED?: No Referrals: John Machado MD [Primary Care Provider] - 1-2 days Time of Disposition: 20:31
[2024-09-28 20:58] VITALS: BP 142/74; PULSE 68; TEMP 97.9
== END 2024-09-28 20:58 | disposition home or self-care (01) ==
LOC: EC 18:32
DX: S09.90XA Unspecified injury of head, initial encounter (principal); M25.561 Pain in right knee; Z86.73 Personal history of transient ischemic attack (TIA), and cerebral infarction without residual deficits; Z88.1 Allergy status to other antibiotic agents; Z88.2 Allergy status to sulfonamides; Z88.8 Allergy status to other drugs, medicaments and biological substances; I11.0 Hypertensive heart disease with heart failure; I50.9 Heart failure, unspecified; W01.0XXA Fall on same level from slipping, tripping and stumbling without subsequent striking against object, initial encounter
CPT/HCPCS: 70450; 72125; 73502; 99284

== ENCOUNTER 2024-10-01 19:33 | Outpatient (CLI) | payer MEDICARE ==
--- NOTE | 2024-10-02 16:47 | P.PCN ---
Description of Procedure: POLYSOMNOGRAPHY REPORT PROCEDURE(S)/DATE(S): Polysomnography 10/01/2024 CLINICAL: Patient has been seen in the sleep center for evaluation of obstructive sleep apnea-hypopnea syndrome. Please see my consultation. Sleep study has been done for evaluation of patient breathing during the sleep. PROCEDURE: The standard montage for clinical polysomnography included the electroencephalogram, the electrooculogram, the mentalis surface electromyography and Lead II cardiography. The respiratory battery consisted of measurements of nasal/buccal air flow, pressure transducer measurements from nose, thoracic and/or abdominal effort and intercostal surface electromyography. Video monitoring has been done to check for any parasomnia events. Nocturnal oxyhemoglobin saturations were obtained by finger oximetry. Step-dallas titration with positive airway pressure was utilized to control the respiratory events, if necessary. RESULTS: During the diagnostic sleep study sleep efficiency was decreased to 78.3%. Latency to sleep onset was borderline 30.5 min. Sleep architecture showed stage NI was increased to 20.6%, Delta sleep was absent 0%, REM sleep was significantly increased to 35.6%. Respiratory channel showed 43 obstructive apneas, 0 mixed apneas, 0 central apneas, 236 hypopneas with lowest oxygen level 59%. Total apnea hypopnea index was 53.0. Heart rate was in the range between 64 and 76, average 69. EMG showed 0 periodic limb movements per hour with 0 micro-arousals per hour. IMPRESSIONS: 1. Extremely severe obstructive sleep apnea hypopnea syndrome with extremely severe oxygen desaturation. 2. No significant periodic limb movements have been documented. Please see other impressions from consultation PLAN: 1. The patient will have PAP titration for correction of respiratory abnormalities during the sleep. 2. Losing weight program. 3. Sleep hygiene with regular time in bed for at least 7-1/2 hours. 4. No driving if feeling sleepiness. Thank you very much for allowing me to participate in the management of your patient. Sincerely, Fabian Snow MD, PhD, FAASM. Diplomat of [place] [employer], Sleep Medicine Board by [place] [employer] Family Development Extension Specialist [facility] [place] cc: John Machado MD
== END 2024-10-02 06:00 | disposition home or self-care (01) ==
LOC: 3 N SLEEP 19:33
PROVIDERS: ATTEND Internal Medicine
DX: G47.33 Obstructive sleep apnea (adult) (pediatric) (principal); Z88.8 Allergy status to other drugs, medicaments and biological substances; Z88.6 Allergy status to analgesic agent; Z88.1 Allergy status to other antibiotic agents; Z88.2 Allergy status to sulfonamides
CPT/HCPCS: 95810

== ENCOUNTER 2024-10-02 19:47 | Outpatient (CLI) | payer MEDICARE ==
--- NOTE | 2024-10-09 12:27 | P.PCN ---
Description of Procedure: CLINICAL: Titration with positive air pressure has been done for correction of respiratory abnormalities during sleep. DESCRIPTION OF PROCEDURE: The standard montage for clinical polysomnography included the electroencephalogram, the electrocardiogram, the mentalis surface electromyography and Lead II cardiography. The respiratory battery consisted of measurements of nasal /buccal air flow, pressure transducer measurements from the nose, thoracic and /or abdominal effort and intercostal surface electromyography. Video monitoring has been done to check for any parasomnia events. Nocturnal oxyhemoglobin saturations were obtained by finger oximetry. Step-dallas titration with positive airway pressure was utilized to control respiratory events. Raw data of sleep recording has been reviewed and is adequate. RESULTS: Sleep efficiency was significantly decreased to 66.4%. Latency to sleep onset was prolonged to 42.5 minutes.]. Sleep architecture showed stage N1 was normal 6.8%, Delta sleep was absent 0%, REM sleep was significantly increased to 38.0%, possibly REM sleep rebound phenomenon. Heart rate was minimum 61 BPM, maximum 70 BPM, average 65 BPM. EMG showed 1.8 periodic limb movements per hour with 0.4 micriarousals per hour. PAP titration have been done with CPAP up to the pressure 12 cm H2O. The best results were at the pressure 12 cm H2O. Apnea hypopnea index reduced to 1.8, patient was at that pressure in rem sleep for 66.7 minutes and in non-REM sleep for 47.5 minutes. IMPRESSION: 1. Obstructive sleep apnea hypopnea syndrome on controle with PAP treatment. 2. No significant periodic limb movements have been documented. Please see other impressions from consultation. PLAN: 1. The patient will have treatment with positive air pressure equipment with the level of pressure AutoPap 5-14 cm H2O and should use it every night for the whole night. 2. Watching and losing weight. 3. Sleep hygiene with regular time in bed for at least 8 hours. 4. No driving if feeling any sleepiness. 5. I will see the patient for follow up visit to explain the results of the test, recommendations, check compliance with treatment and make any necessary adjustment related to mask fitting, pressure and humidification. Thank you very much for allowing me to participate in the management of your patient. Sincerely, Fabian Snow MD, PhD, FAASM Diplomat of [place] [employer] Sleep Medicine Board of [place] [employer] Station Master [facility] [place] cc: John Machado MD
== END 2024-10-03 06:00 | disposition home or self-care (01) ==
LOC: 3 N SLEEP 19:47
PROVIDERS: ATTEND Internal Medicine
DX: G47.33 Obstructive sleep apnea (adult) (pediatric) (principal); Z99.89 Dependence on other enabling machines and devices; Z91.048 Other nonmedicinal substance allergy status; Z88.8 Allergy status to other drugs, medicaments and biological substances; Z88.2 Allergy status to sulfonamides; Z88.1 Allergy status to other antibiotic agents
CPT/HCPCS: 95811

== ENCOUNTER → 2024-10-16 | Outpatient (CLI) | payer MEDICARE ==
[2024-10-16 14:58] VITALS: BP 152/97; PULSE 70; RESP 16; TEMP 98.3; BMI 49.9
--- NOTE | 2024-10-16 15:39 | P.BASOAP ---
Subjective Progress Note Date: 10/16/24 She is on Zepbound. She report spitting up. She has been on for 3 months. She cannot remember drinking her meals and foods. No more troubles swallowing. Spit 6 hrs later her meals. Needs fluoro esophagram to find out her symptoms. She has regular burping. She is taking Zepbound. Objective - Vital Signs Vital signs: Vital Signs Temp 98.3 F 10/16/24 14:56 Pulse 70 10/16/24 14:56 Resp 16 10/16/24 14:56 BP 152/97 10/16/24 14:56 Pulse Ox FiO2 Intake & Output 10/15/24 10/16/24 10/16/24 18:59 06:59 18:59 Weight 123.831 kg Assessment/Plan Plan: Date: 10/16/24 Initial Weight: 165.561 kg Initial BMI: 66.7 Current Weight: 123.831 kg Current BMI: 49.9 Type of Surgery: Total Volume in Band: Previous Volume: Volume Removed: Volume Added: Band Size:
== END ==
LOC: BARWHC3 14:19
PROVIDERS: ATTEND Surgery Plastic and Reconstructive Surgery
DX: E66.01 Morbid (severe) obesity due to excess calories (principal); Z68.42 Body mass index [BMI] 45.0-49.9, adult; Z91.048 Other nonmedicinal substance allergy status; Z88.1 Allergy status to other antibiotic agents; Z88.2 Allergy status to sulfonamides; Z88.8 Allergy status to other drugs, medicaments and biological substances
CPT/HCPCS: 99211

== ENCOUNTER → 2024-10-29 | Outpatient (CLI) | payer MEDICARE ==
--- NOTE | 2024-10-29 11:09 | FL ---
EXAMINATION TYPE: FL barium swallow DATE OF EXAM: 10/29/2024 10:29 AM COMPARISON: CT 02/05/2024 and prior swallow study 09/18/2013 CLINICAL INDICATION: Female, 69 years old with history of R13.10 DYSPHAGIA, UNSPECIFIED, patient's vo miting previous medial up to 6 to 7 hours later. History of remote Alex-en-Y gastric bypass. Endoscop y will be low with dilatation. Total fluoroscopy time 2 minutes 48 seconds. Total images: 38 Total DAP: 1243 mGycm2. FINDINGS: Thin barium was utilized due to patient's history of previous bariatric surgery. The patient swallowed oral contrast without difficulty or delay. The thoracic esophagus is noted to b e slightly patulous. Mild tertiary peristaltic waves are encountered. There is initial prompt passage of contrast from the esophagus into the small gastric pouch and subse quent prompt passage across the gastrojejunostomy into jejunal loops. No abnormal narrowing is identi fied. However, there is intermittent accumulation of contrast to the lower third chest and mild intra esophageal reflux. IMPRESSION: Patient status post Alex-en-Y gastric bypass with a very small gastric pouch. There is in termittent but prolonged back up of contrast into the lower third chest level despite the absence of any narrowing or stricture. The thoracic esophagus has a patulous appearance. Consider significant dy smotility accounting for this finding. [facility], , 10/29/2024 11:07 AM
== END | disposition home or self-care (01) ==
LOC: RADFLMAIN 09:32
PROVIDERS: ATTEND Surgery Plastic and Reconstructive Surgery
DX: R13.10 Dysphagia, unspecified (principal); Z98.84 Bariatric surgery status
CPT/HCPCS: 74220